=== PATIENT | male | born 1990 | race Caucasian/White ===

== ENCOUNTER 2018-04-12 14:50 | Inpatient (IN) ==
[2018-04-16] MEDS ORDERED: Acetaminophen 325 MG Tablet PO PRN
[2018-04-16] MEDS ORDERED: Bisacodyl 10 MG Supp RECTAL PRN
[2018-04-16] MEDS ORDERED: Chlorhexidine Gluconate 2% 1 Pack (2 Cloths) TOPICAL PRN (04:00)
[2018-04-16] MEDS: Chlorhexidine Gluconate 2% 1 Pack (2 Cloths) TOPICAL SCH (04:55)
[2018-04-16 06:35] LABS: Baso % (Auto) 0.6 % (0.0-2.0); Eos # (Auto) 0.1 th/mm3 (0.0-0.4); Eos % (Auto) 1.4 % (0.0-4.0); Hematocrit 25.2 % (39.0-51.0); Hemoglobin 8.7 gm/dL (13.0-17.0); Lymph # (Auto) 2.6 th/mm3 (1.0-4.8); Mean Corpuscular HGB Conc 34.7 % (32.0-36.0); Mean Corpuscular Hemoglobin 29.9 pg (27.0-34.0); Mean Corpuscular Volume 86.1 fL (80.0-100.0); Mean Platelet Volume 7.9 fL (7.0-11.0); Mono # (Auto) 0.1 th/mm3 (0.0-0.9); Mono % (Auto) 2.2 % (0.0-8.0); Neut # (Auto) 1.6 th/mm3 (1.8-7.7); Neut % (Auto) 36.8 % (16.0-70.0); Platelet Count 51 th/mm3 (150-450); Red Blood Count 2.93 mil/mm3 (4.50-5.90); Red Cell Distribution Width 17.8 % (11.6-17.2); White Blood Count 4.4 th/mm3 (4.0-11.0)
[2018-04-16] MEDS: Senna/Docusate Sodium 8.6/50 MG Tablet PO SCH ×2 (08:17→21:08)
[2018-04-16 08:39] LABS: Blast Cells 21 % (0-0); Eosinophils 1 % (0-4); Lymphocytes 22 % (9-44); Monocytes 2 % (0-8); Platelet Morphology Normal (Normal); Tallied Nucleated RBC 3 (0-0)
[2018-04-16 08:40] LABS: Ovalocytes 1+
--- NOTE | 2018-04-16 08:59 | P.PNONC ---
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 Objective Vital Signs/Intake & Output: Vital Signs 04/16/18 04:00 04/16/18 07:16 Temperature 98 F Pulse Rate 50 L Respiratory Rate 14 Blood Pressure 112/48 L Pulse Oximetry 98 98 Intake & Output 04/15/18 04/16/18 04/16/18 18:59 06:59 18:59 Intake Total 1680 / 1680 Output Total 2900 / 2900 Balance -1220 / -1220 Weight 234 lb 5.622 oz Intake: Oral 1680 / 1680 Output: Urine 2900 / 2900 Other: Date of Last Bowel Movement 04/15/18 Result Diagrams: 04/16/18 04:50 04/15/18 04:00 Laboratory Results: Laboratory Results - last 24 hr 04/12/18 04/12/18 04/12/18 15:17 15:17 15:17 WBC RBC Hgb Hct MCV MCH MCHC RDW Plt Count MPV Prelim Diff (Auto) Neut % (Auto) Lymph % (Auto) [place] % (Auto) Eos % (Auto) Baso % (Auto) Neut # (Auto) Lymph # (Auto) [place] # (Auto) Eos # (Auto) Baso # (Auto) CBC Comment WBC Differential Total Counted Neutrophils % (Manual) Seg Neuts % (Manual) Band Neutrophils % Band Neuts % (Manual) Lymphocytes % Lymphocytes % (Manual) Monocytes % Monocytes % (Manual) Eosinophils % Eosinophils % (Manual) Basophils % Blast Cells % (Manual) Neutrophils # (Manual) Abs Neuts (Manual) Metamyelocytes Myelocytes Nucleated RBCs Nucleated RBCs/100 WBC Differential Comment Blast Cells Platelet Estimate Platelet Morphology Plt Morphology Comment Basophilic Stippling Tear Drop Cells Ovalocytes Stomatocytes Smear Path Review ESR GREATER THAN 140 H Retic Count Absolute Retic PT INR APTT Fibrinogen 309 Sodium Potassium Chloride Carbon Dioxide Anion Gap BUN Creatinine Estimated GFR Random Glucose Hemoglobin A1c Lactic Acid Uric Acid Calcium Phosphorus Magnesium Iron 287 H TIBC 316 % Saturation 90.7 H Ferritin 431 H Total Bilirubin AST ALT Alkaline Phosphatase Lactate Dehydrogenase Total Creatine Kinase C-Reactive Protein 0.51 H Total Protein Albumin Vitamin B12 Folate Free T4 TSH 3rd Generation Urine Color Urine Turbidity Urine pH Ur Specific [place] Urine Protein Urine Glucose (UA) Urine Ketones Urine Occult Blood Urine Nitrite Urine Bilirubin Urine Urobilinogen Ur Leukocyte Esterase Micro UA Comment CATY Screen Complement C3 Complement C4 Transplt Candidate Eval CMV DNA Quant PCR CMV DNA PCR copies/ml CMV Lower 95% Conf Intv CMV Upper 95% Conf Intv EBV Capsid Ag IgG Ab EBV Capsid Ag IgM Ab EBV Nuclear Antigen EBV Interpretation Hepatitis A IgM Ab Hep Bs Antigen Hep B Core IgM Ab Hep C IgG Ab HIV 1&2 Ab/P24 Ag 4thGn 04/12/18 04/12/18 04/12/18 18:41 18:41 18:41 WBC 3.6 L RBC 0.99 L Hgb 3.3 L* Hct 9.6 L* MCV 96.5 MCH 33.2 MCHC 34.3 RDW 17.6 H Plt Count 41 L D MPV 8.2 Prelim Diff (Auto) Neut % (Auto) 34.4 Lymph % (Auto) 61.8 H [place] % (Auto) 2.1 Eos % (Auto) 1.3 Baso % (Auto) 0.4 Neut # (Auto) 1.2 L Lymph # (Auto) 2.2 [place] # (Auto) 0.1 Eos # (Auto) 0.0 Baso # (Auto) 0.0 CBC Comment AUTO DIFF WBC Differential Total Counted 100 Neutrophils % (Manual) 47 Seg Neuts % (Manual) Band Neutrophils % 3 Band Neuts % (Manual) Lymphocytes % 35 Lymphocytes % (Manual) Monocytes % 1 Monocytes % (Manual) Eosinophils % 3 Eosinophils % (Manual) Basophils % Blast Cells % (Manual) Neutrophils # (Manual) 1.9 Abs Neuts (Manual) Metamyelocytes 3 H Myelocytes 1 H Nucleated RBCs 3 H Nucleated RBCs/100 WBC Differential Comment FINAL DIFF MANUAL Blast Cells 7 H Platelet Estimate LOW L Platelet Morphology Plt Morphology Comment NORMAL Basophilic Stippling FAINT H Tear Drop Cells 1+ H Ovalocytes Stomatocytes 1+ H Smear Path Review ESR Retic Count 2.9 Absolute Retic 28.7 PT INR APTT Fibrinogen Sodium Potassium Chloride Carbon Dioxide Anion Gap BUN Creatinine Estimated GFR Random Glucose Hemoglobin A1c Lactic Acid Uric Acid Calcium Phosphorus Magnesium Iron TIBC % Saturation Ferritin Total Bilirubin AST ALT Alkaline Phosphatase Lactate Dehydrogenase Total Creatine Kinase C-Reactive Protein Total Protein Albumin Vitamin B12 Folate Free T4 TSH 3rd Generation Urine Color Urine Turbidity Urine pH Ur Specific [place] Urine Protein Urine Glucose (UA) Urine Ketones Urine Occult Blood Urine Nitrite Urine Bilirubin Urine Urobilinogen Ur Leukocyte Esterase Micro UA Comment CATY Screen NEG Complement C3 98 Complement C4 22 Transplt Candidate Eval CMV DNA Quant PCR CMV DNA PCR copies/ml CMV Lower 95% Conf Intv CMV Upper 95% Conf Intv EBV Capsid Ag IgG Ab EBV Capsid Ag IgM Ab EBV Nuclear Antigen EBV Interpretation Hepatitis A IgM Ab Hep Bs Antigen Hep B Core IgM Ab Hep C IgG Ab HIV 1&2 Ab/P24 Ag 4thGn 04/12/18 04/12/18 04/12/18 18:41 18:41 18:41 WBC RBC Hgb Hct MCV MCH MCHC RDW Plt Count MPV Prelim Diff (Auto) Neut % (Auto) Lymph % (Auto) [place] % (Auto) Eos % (Auto) Baso % (Auto) Neut # (Auto) Lymph # (Auto) [place] # (Auto) Eos # (Auto) Baso # (Auto) CBC Comment WBC Differential Total Counted Neutrophils % (Manual) Seg Neuts % (Manual) Band Neutrophils % Band Neuts % (Manual) Lymphocytes % Lymphocytes % (Manual) Monocytes % Monocytes % (Manual) Eosinophils % Eosinophils % (Manual) Basophils % Blast Cells % (Manual) Neutrophils # (Manual) Abs Neuts (Manual) Metamyelocytes Myelocytes Nucleated RBCs Nucleated RBCs/100 WBC Differential Comment Blast Cells Platelet Estimate Platelet Morphology Plt Morphology Comment Basophilic Stippling Tear Drop Cells Ovalocytes Stomatocytes Smear Path Review ESR Retic Count Absolute Retic PT INR APTT Fibrinogen Sodium Potassium Chloride Carbon Dioxide Anion Gap BUN Creatinine Estimated GFR Random Glucose Hemoglobin A1c Lactic Acid Uric Acid Calcium Phosphorus Magnesium Iron TIBC % Saturation Ferritin Total Bilirubin AST ALT Alkaline Phosphatase Lactate Dehydrogenase Total Creatine Kinase C-Reactive Protein Total Protein Albumin Vitamin B12 Folate Free T4 TSH 3rd Generation Urine Color Urine Turbidity Urine pH Ur Specific [place] Urine Protein Urine Glucose (UA) Urine Ketones Urine Occult Blood Urine Nitrite Urine Bilirubin Urine Urobilinogen Ur Leukocyte Esterase Micro UA Comment CATY Screen Complement C3 Complement C4 Transplt Candidate Eval Cancelled CMV DNA Quant PCR Cancelled CMV DNA PCR copies/ml Cancelled CMV Lower 95% Conf Intv Cancelled CMV Upper 95% Conf Intv Cancelled EBV Capsid Ag IgG Ab EBV Capsid Ag IgM Ab EBV Nuclear Antigen EBV Interpretation Hepatitis A IgM Ab NONREACTIVE Hep Bs Antigen NONREACTIVE Hep B Core IgM Ab NONREACTIVE Hep C IgG Ab NONREACTIVE HIV 1&2 Ab/P24 Ag 4thGn 06/04/12/18 04/12/18 18:41 18:41 18:41 WBC RBC Hgb Hct MCV MCH MCHC RDW Plt Count MPV Prelim Diff (Auto) Neut % (Auto) Lymph % (Auto) [place] % (Auto) Eos % (Auto) Baso % (Auto) Neut # (Auto) Lymph # (Auto) [place] # (Auto) Eos # (Auto) Baso # (Auto) CBC Comment WBC Differential Total Counted Neutrophils % (Manual) Seg Neuts % (Manual) Band Neutrophils % Band Neuts % (Manual) Lymphocytes % Lymphocytes % (Manual) Monocytes % Monocytes % (Manual) Eosinophils % Eosinophils % (Manual) Basophils % Blast Cells % (Manual) Neutrophils # (Manual) Abs Neuts (Manual) Metamyelocytes Myelocytes Nucleated RBCs Nucleated RBCs/100 WBC Differential Comment Blast Cells Platelet Estimate Platelet Morphology Plt Morphology Comment Basophilic Stippling Tear Drop Cells Ovalocytes Stomatocytes Smear Path Review ESR Retic Count Absolute Retic PT INR APTT Fibrinogen Sodium Potassium Chloride Carbon Dioxide Anion Gap BUN Creatinine Estimated GFR Random Glucose Hemoglobin A1c Lactic Acid Uric Acid 5.3 Calcium Phosphorus Magnesium Iron TIBC % Saturation Ferritin Total Bilirubin AST ALT Alkaline Phosphatase Lactate Dehydrogenase 303 H Total Creatine Kinase 124 C-Reactive Protein Total Protein Albumin Vitamin B12 743 Folate 3.1 Free T4 TSH 3rd Generation 0.839 Urine Color Urine Turbidity Urine pH Ur Specific [place] Urine Protein Urine Glucose (UA) Urine Ketones Urine Occult Blood Urine Nitrite Urine Bilirubin Urine Urobilinogen Ur Leukocyte Esterase Micro UA Comment CATY Screen Complement C3 Complement C4 Transplt Candidate Eval CMV DNA Quant PCR CMV DNA PCR copies/ml CMV Lower 95% Conf Intv CMV Upper 95% Conf Intv EBV Capsid Ag IgG Ab Positive EBV Capsid Ag IgM Ab Negative EBV Nuclear Antigen Positive EBV Interpretation . Hepatitis A IgM Ab Hep Bs Antigen Hep B Core IgM Ab Hep C IgG Ab HIV 1&2 Ab/P24 Ag 4thGn 04/13/18 04/13/18 04/13/18 05:27 05:27 05:27 WBC 5.3 RBC 1.82 L Hgb 5.6 L* D Hct 16.3 L* MCV 89.9 D MCH 31.0 MCHC 34.4 RDW 18.4 H Plt Count 30 L MPV 7.3 Prelim Diff (Auto) Neut % (Auto) Lymph % (Auto) [place] % (Auto) Eos % (Auto) Baso % (Auto) Neut # (Auto) Lymph # (Auto) [place] # (Auto) Eos # (Auto) Baso # (Auto) CBC Comment AUTO DIFF WBC Differential Total Counted 100 Neutrophils % (Manual) 28 Seg Neuts % (Manual) Band Neutrophils % Band Neuts % (Manual) Lymphocytes % 39 Lymphocytes % (Manual) Monocytes % 1 Monocytes % (Manual) Eosinophils % Eosinophils % (Manual) Basophils % Blast Cells % (Manual) Neutrophils # (Manual) 1.7 L Abs Neuts (Manual) Metamyelocytes 3 H Myelocytes 1 H Nucleated RBCs 4 H Nucleated RBCs/100 WBC Differential Comment FINAL DIFF MANUAL Blast Cells 28 H Platelet Estimate LOW L Platelet Morphology Plt Morphology Comment NORMAL Basophilic Stippling Tear Drop Cells Ovalocytes 1+ H Stomatocytes Smear Path Review ESR Retic Count Absolute Retic PT INR APTT Fibrinogen Sodium 142 Potassium 3.6 Chloride 108 H Carbon Dioxide 23.9 Anion Gap 10 BUN 5 L Creatinine 0.84 Estimated GFR 110 Random Glucose 88 Hemoglobin A1c Lactic Acid Uric Acid Calcium 7.9 L Phosphorus 3.6 Magnesium 2.2 Iron TIBC % Saturation Ferritin Total Bilirubin 0.7 AST 11 L ALT 19 Alkaline Phosphatase 56 Lactate Dehydrogenase Total Creatine Kinase C-Reactive Protein Total Protein 5.9 L D Albumin 3.4 Vitamin B12 Folate Free T4 TSH 3rd Generation Urine Color Urine Turbidity Urine pH Ur Specific [place] Urine Protein Urine Glucose (UA) Urine Ketones Urine Occult Blood Urine Nitrite Urine Bilirubin Urine Urobilinogen Ur Leukocyte Esterase Micro UA Comment CATY Screen Complement C3 Complement C4 Transplt Candidate Eval CMV DNA Quant PCR Cancelled CMV DNA PCR copies/ml Cancelled CMV Lower 95% Conf Intv Cancelled CMV Upper 95% Conf Intv Cancelled EBV Capsid Ag IgG Ab EBV Capsid Ag IgM Ab EBV Nuclear Antigen EBV Interpretation Hepatitis A IgM Ab Hep Bs Antigen Hep B Core IgM Ab Hep C IgG Ab HIV 1&2 Ab/P24 Ag 4thGn 04/14/18 04/14/18 04/15/18 05:07 05:07 04:00 WBC 4.9 RBC 2.19 L Hgb 6.7 L* Hct 19.4 L* MCV 88.4 MCH 30.4 MCHC 34.4 RDW 17.2 Plt Count 28 L MPV 7.2 Prelim Diff (Auto) Neut % (Auto) 23.6 Lymph % (Auto) 73.2 H [place] % (Auto) 1.4 Eos % (Auto) 1.1 Baso % (Auto) 0.7 Neut # (Auto) 1.2 L Lymph # (Auto) 3.6 [place] # (Auto) 0.1 Eos # (Auto) 0.1 Baso # (Auto) 0.0 CBC Comment AUTO DIFF WBC Differential Total Counted 100 Neutrophils % (Manual) 24 Seg Neuts % (Manual) Band Neutrophils % 2 Band Neuts % (Manual) Lymphocytes % 34 Lymphocytes % (Manual) Monocytes % Monocytes % (Manual) Eosinophils % 2 Eosinophils % (Manual) Basophils % Blast Cells % (Manual) Neutrophils # (Manual) 1.4 L Abs Neuts (Manual) Metamyelocytes 1 Myelocytes 2 H Nucleated RBCs 6 H Nucleated RBCs/100 WBC Differential Comment FINAL DIFF MANUAL Blast Cells 35 H Platelet Estimate LOW L Platelet Morphology Plt Morphology Comment NORMAL Basophilic Stippling Tear Drop Cells 1+ H Ovalocytes Stomatocytes Smear Path Review ESR Retic Count Absolute Retic PT INR APTT Fibrinogen Sodium 141 142 Potassium 3.8 3.9 Chloride 109 H 107 Carbon Dioxide 23.1 27.1 Anion Gap 9 8 BUN 8 10 Creatinine 0.80 0.92 Estimated GFR 117 99 Random Glucose 84 84 Hemoglobin A1c 5.8 Lactic Acid Uric Acid Calcium 8.2 L 8.3 L Phosphorus 4.9 D Magnesium 2.3 Iron TIBC % Saturation Ferritin Total Bilirubin 0.6 0.4 AST 11 L 12 L ALT 16 20 Alkaline Phosphatase 63 70 Lactate Dehydrogenase 298 H 296 H Total Creatine Kinase C-Reactive Protein Total Protein 6.1 L 6.5 Albumin 3.5 3.5 Vitamin B12 Folate Free T4 1.09 TSH 3rd Generation 2.740 Urine Color Urine Turbidity Urine pH Ur Specific [place] Urine Protein Urine Glucose (UA) Urine Ketones Urine Occult Blood Urine Nitrite Urine Bilirubin Urine Urobilinogen Ur Leukocyte Esterase Micro UA Comment CATY Screen Complement C3 Complement C4 Transplt Candidate Eval CMV DNA Quant PCR CMV DNA PCR copies/ml CMV Lower 95% Conf Intv CMV Upper 95% Conf Intv EBV Capsid Ag IgG Ab EBV Capsid Ag IgM Ab EBV Nuclear Antigen EBV Interpretation Hepatitis A IgM Ab Hep Bs Antigen Hep B Core IgM Ab Hep C IgG Ab HIV 1&2 Ab/P24 Ag 4thGn 04/15/18 04/15/18 04/15/18 04:00 04:00 04:00 WBC 6.8 RBC 2.81 L Hgb 8.3 L Hct 24.0 L MCV 85.5 MCH 29.4 MCHC 34.4 RDW 17.5 H Plt Count 59 L D MPV 7.6 Prelim Diff (Auto) Neut % (Auto) 19.0 Lymph % (Auto) 78.2 H [place] % (Auto) 1.0 Eos % (Auto) 1.4 Baso % (Auto) 0.4 Neut # (Auto) 1.3 L Lymph # (Auto) 5.3 H [place] # (Auto) 0.1 Eos # (Auto) 0.1 Baso # (Auto) 0.0 CBC Comment AUTO DIFF WBC Differential Total Counted 100 Neutrophils % (Manual) 20 Seg Neuts % (Manual) Band Neutrophils % 1 Band Neuts % (Manual) Lymphocytes % 37 Lymphocytes % (Manual) Monocytes % 1 Monocytes % (Manual) Eosinophils % 2 Eosinophils % (Manual) Basophils % 1 Blast Cells % (Manual) Neutrophils # (Manual) 1.4 L Abs Neuts (Manual) Metamyelocytes Myelocytes Nucleated RBCs 4 H Nucleated RBCs/100 WBC Differential Comment FINAL DIFF MANUAL Blast Cells 38 H Platelet Estimate LOW L Platelet Morphology Plt Morphology Comment NORMAL Basophilic Stippling Tear Drop Cells 1+ H Ovalocytes 1+ H Stomatocytes Smear Path Review ESR Retic Count Absolute Retic PT 11.4 INR 1.1 APTT 25.7 Fibrinogen 296 Sodium Potassium Chloride Carbon Dioxide Anion Gap BUN Creatinine Estimated GFR Random Glucose Hemoglobin A1c Lactic Acid Uric Acid Calcium Phosphorus Magnesium Iron TIBC % Saturation Ferritin Total Bilirubin AST ALT Alkaline Phosphatase Lactate Dehydrogenase Total Creatine Kinase C-Reactive Protein Total Protein Albumin Vitamin B12 Folate Free T4 TSH 3rd Generation Urine Color Urine Turbidity Urine pH Ur Specific [place] Urine Protein Urine Glucose (UA) Urine Ketones Urine Occult Blood Urine Nitrite Urine Bilirubin Urine Urobilinogen Ur Leukocyte Esterase Micro UA Comment CATY Screen Complement C3 Complement C4 Transplt Candidate Eval CMV DNA Quant PCR CMV DNA PCR copies/ml CMV Lower 95% Conf Intv CMV Upper 95% Conf Intv EBV Capsid Ag IgG Ab EBV Capsid Ag IgM Ab EBV Nuclear Antigen EBV Interpretation Hepatitis A IgM Ab Hep Bs Antigen Hep B Core IgM Ab Hep C IgG Ab HIV 1&2 Ab/P24 Ag 4thGn NONREACTIVE 04/15/18 04/16/18 04/16/18 05:00 04:50 04:50 WBC 4.4 RBC 2.93 L Hgb 8.7 L Hct 25.2 L MCV 86.1 MCH 29.9 MCHC 34.7 RDW 17.8 H Plt Count 51 L MPV 7.9 Prelim Diff (Auto) Slide review pending Neut % (Auto) 36.8 Lymph % (Auto) 59.0 H [place] % (Auto) 2.2 Eos % (Auto) 1.4 Baso % (Auto) 0.6 Neut # (Auto) 1.6 L Lymph # (Auto) 2.6 [place] # (Auto) 0.1 Eos # (Auto) 0.1 Baso # (Auto) 0.0 CBC Comment WBC Differential Manual diff final Total Counted Neutrophils % (Manual) Seg Neuts % (Manual) 45 Band Neutrophils % Band Neuts % (Manual) 9 H Lymphocytes % Lymphocytes % (Manual) 22 Monocytes % Monocytes % (Manual) 2 Eosinophils % Eosinophils % (Manual) 1 Basophils % Blast Cells % (Manual) 21 H Neutrophils # (Manual) Abs Neuts (Manual) 2.4 Metamyelocytes Myelocytes Nucleated RBCs Nucleated RBCs/100 WBC 3 H Differential Comment . Blast Cells Platelet Estimate Low L Platelet Morphology Normal Plt Morphology Comment Basophilic Stippling Tear Drop Cells Ovalocytes 1+ H Stomatocytes Smear Path Review ESR Retic Count Absolute Retic PT INR APTT Fibrinogen Sodium Potassium Chloride Carbon Dioxide Anion Gap BUN Creatinine Estimated GFR Random Glucose Hemoglobin A1c Lactic Acid Uric Acid Calcium Phosphorus Magnesium Iron TIBC % Saturation Ferritin Total Bilirubin AST ALT Alkaline Phosphatase Lactate Dehydrogenase 337 H Total Creatine Kinase C-Reactive Protein Total Protein Albumin Vitamin B12 Folate Free T4 TSH 3rd Generation Urine Color Straw Urine Turbidity CLEAR Urine pH 6.0 Ur Specific [place] 1.004 Urine Protein NEG Urine Glucose (UA) NEG Urine Ketones NEG Urine Occult Blood NEG Urine Nitrite NEG Urine Bilirubin NEG Urine Urobilinogen LESS THAN 2 Ur Leukocyte Esterase NEG Micro UA Comment CULT NOT INDICATED CATY Screen Complement C3 Complement C4 Transplt Candidate Eval CMV DNA Quant PCR CMV DNA PCR copies/ml CMV Lower 95% Conf Intv CMV Upper 95% Conf Intv EBV Capsid Ag IgG Ab EBV Capsid Ag IgM Ab EBV Nuclear Antigen EBV Interpretation Hepatitis A IgM Ab Hep Bs Antigen Hep B Core IgM Ab Hep C IgG Ab HIV 1&2 Ab/P24 Ag 4thGn Medications: Active Medications Generic Name Dose Route Start Last Admin Trade Name Freq PRN Reason Stop Dose Admin Chlorhexidine Gluconate 3 pack 04/16/18 04:00 04/16/18 04:55 Chlorhexidine 2% Cloth TOPICAL 04/21/18 03:59 3 pack DAILY@0400 GILMA Administration Pantoprazole Sodium 40 mg 04/16/18 09:00 04/16/18 08:17 Protonix PO 40 mg DAILY GILMA Administration Senna/Docusate Sodium 1 tab 04/16/18 09:00 04/16/18 08:17 Margie-Colace PO 1 tab BID GILMA Administration Objective Remarks: GENERAL: Young male resting in bed in no obvious distress SKIN: Warm and dry. Leal catheter to right upper chest wall. No erythema. HEAD: Normocephalic. EYES: No injection or drainage. NECK: Supple, trachea midline. CARDIOVASCULAR: Regular rate and rhythm without murmurs. RESPIRATORY: Clear posteriorly. Breathing unlabored at rest. GASTROINTESTINAL: Abdomen soft, non-tender, nondistended. EXTREMITIES: No cyanosis, or edema. MUSCULOSKELETAL: Adequate muscle tone. NEUROLOGICAL: No obvious focal deficit. Awake, alert, and oriented x3. PSYCHIATRIC: Appropriate mood and affect; insight and judgment normal. Assessment/Plan - Plan 04/15 D1 Daunorubicin + Cytarabine 04/16: D2 Daunorubicin + Cytarabine 1. Continue induction 7+3 chemotherapy today. Overall the patient is doing well. 2. It was again explained to patient that this is a very lengthy process. Nothing to do for now except administer chemotherapy, observe for side effects and monitor blood counts. 3. Await molecular studies to determine prognosis and possibility of bone marrow transplant. Will transfuse irradiated packed red blood cells when transfusion becomes necessary. - Attending Statement The exam, history, and the medical decision-making described in the above note were completed with the assistance of the mid-level provider. I reviewed and agree with the findings presented. I attest that I had a [id number] encounter with the patient on the same day, and personally performed and documented my assessment and findings in the medical record. 27 yoM with AML. He is D2 on 04/16/2018 of 7+3. He started chemotherapy on 04/15/2018. He is tolerating well. Continue to monitor vitals, counts.
[2018-04-16] MEDS: Heparin Central Flush 100 UNIT/ML 5 ML Vial IV.FLUSH SCH (13:22)
--- NOTE | 2018-04-16 16:19 | P.PN ---
Subjective Interval history: Follow-up AML. Patient has no new complaints. RN noted heart rate down to mid 40s when patient is sleeping. His blood pressure is stable. Physical Exam Vital signs: Vital Signs 04/16/18 04:00 04/16/18 07:16 04/16/18 13:28 Temperature 98 F 97.7 F Pulse Rate 50 L 71 Respiratory Rate 14 16 Blood Pressure 112/48 L 142/72 H Pulse Oximetry 98 98 99 Intake & Output 04/15/18 04/16/18 04/16/18 18:59 06:59 18:59 Intake Total 1680 / 1680 Output Total 2900 / 2900 Balance -1220 / -1220 Weight 106.3 kg Intake: Oral 1680 / 1680 Output: Urine 2900 / 2900 Other: Date of Last Bowel Movement 04/15/18 04/16/18 Narrative: GENERAL: Well-developed and well-nourished in no distress SKIN: Warm and dry. CARDIOVASCULAR: Regular rate and rhythm without murmurs, gallops, or rubs. RESPIRATORY: Breath sounds equal bilaterally. No accessory muscle use. GASTROINTESTINAL: Abdomen soft, non-tender, nondistended. MUSCULOSKELETAL: No cyanosis, or edema. BACK: Nontender without obvious deformity. No CVA tenderness. Results - Labs CBC & Chem 7: 04/16/18 04:50 04/15/18 04:00 Labs: Laboratory Results - last 24 hr 04/12/18 04/12/18 04/12/18 15:17 15:17 15:17 WBC RBC Hgb Hct MCV MCH MCHC RDW Plt Count MPV Prelim Diff (Auto) Neut % (Auto) Lymph % (Auto) [place] % (Auto) Eos % (Auto) Baso % (Auto) Neut # (Auto) Lymph # (Auto) [place] # (Auto) Eos # (Auto) Baso # (Auto) CBC Comment WBC Differential Total Counted Neutrophils % (Manual) Seg Neuts % (Manual) Band Neutrophils % Band Neuts % (Manual) Lymphocytes % Lymphocytes % (Manual) Monocytes % Monocytes % (Manual) Eosinophils % Eosinophils % (Manual) Basophils % Blast Cells % (Manual) Neutrophils # (Manual) Abs Neuts (Manual) Metamyelocytes Myelocytes Nucleated RBCs Nucleated RBCs/100 WBC Differential Comment Blast Cells Platelet Estimate Platelet Morphology Plt Morphology Comment Basophilic Stippling Tear Drop Cells Ovalocytes Stomatocytes Smear Path Review ESR GREATER THAN 140 H Retic Count Absolute Retic PT INR APTT Fibrinogen 309 Sodium Potassium Chloride Carbon Dioxide Anion Gap BUN Creatinine Estimated GFR Random Glucose Hemoglobin A1c Lactic Acid Uric Acid Calcium Phosphorus Magnesium Iron 287 H TIBC 316 % Saturation 90.7 H Ferritin 431 H Total Bilirubin AST ALT Alkaline Phosphatase Lactate Dehydrogenase Total Creatine Kinase C-Reactive Protein 0.51 H Total Protein Albumin Vitamin B12 Folate Free T4 TSH 3rd Generation Urine Color Urine Turbidity Urine pH Ur Specific [place] Urine Protein Urine Glucose (UA) Urine Ketones Urine Occult Blood Urine Nitrite Urine Bilirubin Urine Urobilinogen Ur Leukocyte Esterase Micro UA Comment CATY Screen Complement C3 Complement C4 Transplt Candidate Eval CMV DNA Quant PCR CMV DNA PCR copies/ml CMV Lower 95% Conf Intv CMV Upper 95% Conf Intv EBV Capsid Ag IgG Ab EBV Capsid Ag IgM Ab EBV Nuclear Antigen EBV Interpretation Hepatitis A IgM Ab Hep Bs Antigen Hep B Core IgM Ab Hep C IgG Ab HIV 1&2 Ab/P24 Ag 4thGn 04/12/18 04/12/18 04/12/18 18:41 18:41 18:41 WBC 3.6 L RBC 0.99 L Hgb 3.3 L* Hct 9.6 L* MCV 96.5 MCH 33.2 MCHC 34.3 RDW 17.6 H Plt Count 41 L D MPV 8.2 Prelim Diff (Auto) Neut % (Auto) 34.4 Lymph % (Auto) 61.8 H [place] % (Auto) 2.1 Eos % (Auto) 1.3 Baso % (Auto) 0.4 Neut # (Auto) 1.2 L Lymph # (Auto) 2.2 [place] # (Auto) 0.1 Eos # (Auto) 0.0 Baso # (Auto) 0.0 CBC Comment AUTO DIFF WBC Differential Total Counted 100 Neutrophils % (Manual) 47 Seg Neuts % (Manual) Band Neutrophils % 3 Band Neuts % (Manual) Lymphocytes % 35 Lymphocytes % (Manual) Monocytes % 1 Monocytes % (Manual) Eosinophils % 3 Eosinophils % (Manual) Basophils % Blast Cells % (Manual) Neutrophils # (Manual) 1.9 Abs Neuts (Manual) Metamyelocytes 3 H Myelocytes 1 H Nucleated RBCs 3 H Nucleated RBCs/100 WBC Differential Comment FINAL DIFF MANUAL Blast Cells 7 H Platelet Estimate LOW L Platelet Morphology Plt Morphology Comment NORMAL Basophilic Stippling FAINT H Tear Drop Cells 1+ H Ovalocytes Stomatocytes 1+ H Smear Path Review ESR Retic Count 2.9 Absolute Retic 28.7 PT INR APTT Fibrinogen Sodium Potassium Chloride Carbon Dioxide Anion Gap BUN Creatinine Estimated GFR Random Glucose Hemoglobin A1c Lactic Acid Uric Acid Calcium Phosphorus Magnesium Iron TIBC % Saturation Ferritin Total Bilirubin AST ALT Alkaline Phosphatase Lactate Dehydrogenase Total Creatine Kinase C-Reactive Protein Total Protein Albumin Vitamin B12 Folate Free T4 TSH 3rd Generation Urine Color Urine Turbidity Urine pH Ur Specific [place] Urine Protein Urine Glucose (UA) Urine Ketones Urine Occult Blood Urine Nitrite Urine Bilirubin Urine Urobilinogen Ur Leukocyte Esterase Micro UA Comment CATY Screen NEG Complement C3 98 Complement C4 22 Transplt Candidate Eval CMV DNA Quant PCR CMV DNA PCR copies/ml CMV Lower 95% Conf Intv CMV Upper 95% Conf Intv EBV Capsid Ag IgG Ab EBV Capsid Ag IgM Ab EBV Nuclear Antigen EBV Interpretation Hepatitis A IgM Ab Hep Bs Antigen Hep B Core IgM Ab Hep C IgG Ab HIV 1&2 Ab/P24 Ag 4thGn 04/12/18 04/12/18 04/12/18 18:41 18:41 18:41 WBC RBC Hgb Hct MCV MCH MCHC RDW Plt Count MPV Prelim Diff (Auto) Neut % (Auto) Lymph % (Auto) [place] % (Auto) Eos % (Auto) Baso % (Auto) Neut # (Auto) Lymph # (Auto) [place] # (Auto) Eos # (Auto) Baso # (Auto) CBC Comment WBC Differential Total Counted Neutrophils % (Manual) Seg Neuts % (Manual) Band Neutrophils % Band Neuts % (Manual) Lymphocytes % Lymphocytes % (Manual) Monocytes % Monocytes % (Manual) Eosinophils % Eosinophils % (Manual) Basophils % Blast Cells % (Manual) Neutrophils # (Manual) Abs Neuts (Manual) Metamyelocytes Myelocytes Nucleated RBCs Nucleated RBCs/100 WBC Differential Comment Blast Cells Platelet Estimate Platelet Morphology Plt Morphology Comment Basophilic Stippling Tear Drop Cells Ovalocytes Stomatocytes Smear Path Review ESR Retic Count Absolute Retic PT INR APTT Fibrinogen Sodium Potassium Chloride Carbon Dioxide Anion Gap BUN Creatinine Estimated GFR Random Glucose Hemoglobin A1c Lactic Acid Uric Acid Calcium Phosphorus Magnesium Iron TIBC % Saturation Ferritin Total Bilirubin AST ALT Alkaline Phosphatase Lactate Dehydrogenase Total Creatine Kinase C-Reactive Protein Total Protein Albumin Vitamin B12 Folate Free T4 TSH 3rd Generation Urine Color Urine Turbidity Urine pH Ur Specific [place] Urine Protein Urine Glucose (UA) Urine Ketones Urine Occult Blood Urine Nitrite Urine Bilirubin Urine Urobilinogen Ur Leukocyte Esterase Micro UA Comment CATY Screen Complement C3 Complement C4 Transplt Candidate Eval Cancelled CMV DNA Quant PCR Cancelled CMV DNA PCR copies/ml Cancelled CMV Lower 95% Conf Intv Cancelled CMV Upper 95% Conf Intv Cancelled EBV Capsid Ag IgG Ab EBV Capsid Ag IgM Ab EBV Nuclear Antigen EBV Interpretation Hepatitis A IgM Ab NONREACTIVE Hep Bs Antigen NONREACTIVE Hep B Core IgM Ab NONREACTIVE Hep C IgG Ab NONREACTIVE HIV 1&2 Ab/P24 Ag 4thGn 04/12/18 04/12/18 04/12/18 18:41 18:41 18:41 WBC RBC Hgb Hct MCV MCH MCHC RDW Plt Count MPV Prelim Diff (Auto) Neut % (Auto) Lymph % (Auto) [place] % (Auto) Eos % (Auto) Baso % (Auto) Neut # (Auto) Lymph # (Auto) [place] # (Auto) Eos # (Auto) Baso # (Auto) CBC Comment WBC Differential Total Counted Neutrophils % (Manual) Seg Neuts % (Manual) Band Neutrophils % Band Neuts % (Manual) Lymphocytes % Lymphocytes % (Manual) Monocytes % Monocytes % (Manual) Eosinophils % Eosinophils % (Manual) Basophils % Blast Cells % (Manual) Neutrophils # (Manual) Abs Neuts (Manual) Metamyelocytes Myelocytes Nucleated RBCs Nucleated RBCs/100 WBC Differential Comment Blast Cells Platelet Estimate Platelet Morphology Plt Morphology Comment Basophilic Stippling Tear Drop Cells Ovalocytes Stomatocytes Smear Path Review ESR Retic Count Absolute Retic PT INR APTT Fibrinogen Sodium Potassium Chloride Carbon Dioxide Anion Gap BUN Creatinine Estimated GFR Random Glucose Hemoglobin A1c Lactic Acid Uric Acid 5.3 Calcium Phosphorus Magnesium Iron TIBC % Saturation Ferritin Total Bilirubin AST ALT Alkaline Phosphatase Lactate Dehydrogenase 303 H Total Creatine Kinase 124 C-Reactive Protein Total Protein Albumin Vitamin B12 743 Folate 3.1 Free T4 TSH 3rd Generation 0.839 Urine Color Urine Turbidity Urine pH Ur Specific [place] Urine Protein Urine Glucose (UA) Urine Ketones Urine Occult Blood Urine Nitrite Urine Bilirubin Urine Urobilinogen Ur Leukocyte Esterase Micro UA Comment CATY Screen Complement C3 Complement C4 Transplt Candidate Eval CMV DNA Quant PCR CMV DNA PCR copies/ml CMV Lower 95% Conf Intv CMV Upper 95% Conf Intv EBV Capsid Ag IgG Ab Positive EBV Capsid Ag IgM Ab Negative EBV Nuclear Antigen Positive EBV Interpretation . Hepatitis A IgM Ab Hep Bs Antigen Hep B Core IgM Ab Hep C IgG Ab HIV 1&2 Ab/P24 Ag 4thGn 04/13/18 04/13/18 04/13/18 05:27 05:27 05:27 WBC 5.3 RBC 1.82 L Hgb 5.6 L* D Hct 16.3 L* MCV 89.9 D MCH 31.0 MCHC 34.4 RDW 18.4 H Plt Count 30 L MPV 7.3 Prelim Diff (Auto) Neut % (Auto) Lymph % (Auto) [place] % (Auto) Eos % (Auto) Baso % (Auto) Neut # (Auto) Lymph # (Auto) [place] # (Auto) Eos # (Auto) Baso # (Auto) CBC Comment AUTO DIFF WBC Differential Total Counted 100 Neutrophils % (Manual) 28 Seg Neuts % (Manual) Band Neutrophils % Band Neuts % (Manual) Lymphocytes % 39 Lymphocytes % (Manual) Monocytes % 1 Monocytes % (Manual) Eosinophils % Eosinophils % (Manual) Basophils % Blast Cells % (Manual) Neutrophils # (Manual) 1.7 L Abs Neuts (Manual) Metamyelocytes 3 H Myelocytes 1 H Nucleated RBCs 4 H Nucleated RBCs/100 WBC Differential Comment FINAL DIFF MANUAL Blast Cells 28 H Platelet Estimate LOW L Platelet Morphology Plt Morphology Comment NORMAL Basophilic Stippling Tear Drop Cells Ovalocytes 1+ H Stomatocytes Smear Path Review ESR Retic Count Absolute Retic PT INR APTT Fibrinogen Sodium 142 Potassium 3.6 Chloride 108 H Carbon Dioxide 23.9 Anion Gap 10 BUN 5 L Creatinine 0.84 Estimated GFR 110 Random Glucose 88 Hemoglobin A1c Lactic Acid Uric Acid Calcium 7.9 L Phosphorus 3.6 Magnesium 2.2 Iron TIBC % Saturation Ferritin Total Bilirubin 0.7 AST 11 L ALT 19 Alkaline Phosphatase 56 Lactate Dehydrogenase Total Creatine Kinase C-Reactive Protein Total Protein 5.9 L D Albumin 3.4 Vitamin B12 Folate Free T4 TSH 3rd Generation Urine Color Urine Turbidity Urine pH Ur Specific [place] Urine Protein Urine Glucose (UA) Urine Ketones Urine Occult Blood Urine Nitrite Urine Bilirubin Urine Urobilinogen Ur Leukocyte Esterase Micro UA Comment CATY Screen Complement C3 Complement C4 Transplt Candidate Eval CMV DNA Quant PCR Cancelled CMV DNA PCR copies/ml Cancelled CMV Lower 95% Conf Intv Cancelled CMV Upper 95% Conf Intv Cancelled EBV Capsid Ag IgG Ab EBV Capsid Ag IgM Ab EBV Nuclear Antigen EBV Interpretation Hepatitis A IgM Ab Hep Bs Antigen Hep B Core IgM Ab Hep C IgG Ab HIV 1&2 Ab/P24 Ag 4thGn 04/13/18 04/13/18 04/13/18 05:27 05:27 15:15 WBC RBC Hgb 7.3 L Hct 21.1 L MCV MCH MCHC RDW Plt Count MPV Prelim Diff (Auto) Neut % (Auto) Lymph % (Auto) [place] % (Auto) Eos % (Auto) Baso % (Auto) Neut # (Auto) Lymph # (Auto) [place] # (Auto) Eos # (Auto) Baso # (Auto) CBC Comment WBC Differential Total Counted Neutrophils % (Manual) Seg Neuts % (Manual) Band Neutrophils % Band Neuts % (Manual) Lymphocytes % Lymphocytes % (Manual) Monocytes % Monocytes % (Manual) Eosinophils % Eosinophils % (Manual) Basophils % Blast Cells % (Manual) Neutrophils # (Manual) Abs Neuts (Manual) Metamyelocytes Myelocytes Nucleated RBCs Nucleated RBCs/100 WBC Differential Comment Blast Cells Platelet Estimate Platelet Morphology Plt Morphology Comment Basophilic Stippling Tear Drop Cells Ovalocytes Stomatocytes Smear Path Review ESR Retic Count Absolute Retic PT 12.1 H INR 1.2 APTT 22.3 L Fibrinogen 265 Sodium Potassium Chloride Carbon Dioxide Anion Gap BUN Creatinine Estimated GFR Random Glucose Hemoglobin A1c Lactic Acid 0.5 Uric Acid Calcium Phosphorus Magnesium Iron TIBC % Saturation Ferritin Total Bilirubin AST ALT Alkaline Phosphatase Lactate Dehydrogenase Total Creatine Kinase C-Reactive Protein Total Protein Albumin Vitamin B12 Folate Free T4 TSH 3rd Generation Urine Color Urine Turbidity Urine pH Ur Specific [place] Urine Protein Urine Glucose (UA) Urine Ketones Urine Occult Blood Urine Nitrite Urine Bilirubin Urine Urobilinogen Ur Leukocyte Esterase Micro UA Comment CATY Screen Complement C3 Complement C4 Transplt Candidate Eval CMV DNA Quant PCR CMV DNA PCR copies/ml CMV Lower 95% Conf Intv CMV Upper 95% Conf Intv EBV Capsid Ag IgG Ab EBV Capsid Ag IgM Ab EBV Nuclear Antigen EBV Interpretation Hepatitis A IgM Ab Hep Bs Antigen Hep B Core IgM Ab Hep C IgG Ab HIV 1&2 Ab/P24 Ag 4thGn 04/14/18 04/14/18 04/15/18 05:07 05:07 04:00 WBC 4.9 RBC 2.19 L Hgb 6.7 L* Hct 19.4 L* MCV 88.4 MCH 30.4 MCHC 34.4 RDW 17.2 Plt Count 28 L MPV 7.2 Prelim Diff (Auto) Neut % (Auto) 23.6 Lymph % (Auto) 73.2 H [place] % (Auto) 1.4 Eos % (Auto) 1.1 Baso % (Auto) 0.7 Neut # (Auto) 1.2 L Lymph # (Auto) 3.6 [place] # (Auto) 0.1 Eos # (Auto) 0.1 Baso # (Auto) 0.0 CBC Comment AUTO DIFF WBC Differential Total Counted 100 Neutrophils % (Manual) 24 Seg Neuts % (Manual) Band Neutrophils % 2 Band Neuts % (Manual) Lymphocytes % 34 Lymphocytes % (Manual) Monocytes % Monocytes % (Manual) Eosinophils % 2 Eosinophils % (Manual) Basophils % Blast Cells % (Manual) Neutrophils # (Manual) 1.4 L Abs Neuts (Manual) Metamyelocytes 1 Myelocytes 2 H Nucleated RBCs 6 H Nucleated RBCs/100 WBC Differential Comment FINAL DIFF MANUAL Blast Cells 35 H Platelet Estimate LOW L Platelet Morphology Plt Morphology Comment NORMAL Basophilic Stippling Tear Drop Cells 1+ H Ovalocytes Stomatocytes Smear Path Review ESR Retic Count Absolute Retic PT INR APTT Fibrinogen Sodium 141 142 Potassium 3.8 3.9 Chloride 109 H 107 Carbon Dioxide 23.1 27.1 Anion Gap 9 8 BUN 8 10 Creatinine 0.80 0.92 Estimated GFR 117 99 Random Glucose 84 84 Hemoglobin A1c 5.8 Lactic Acid Uric Acid Calcium 8.2 L 8.3 L Phosphorus 4.9 D Magnesium 2.3 Iron TIBC % Saturation Ferritin Total Bilirubin 0.6 0.4 AST 11 L 12 L ALT 16 20 Alkaline Phosphatase 63 70 Lactate Dehydrogenase 298 H 296 H Total Creatine Kinase C-Reactive Protein Total Protein 6.1 L 6.5 Albumin 3.5 3.5 Vitamin B12 Folate Free T4 1.09 TSH 3rd Generation 2.740 Urine Color Urine Turbidity Urine pH Ur Specific [place] Urine Protein Urine Glucose (UA) Urine Ketones Urine Occult Blood Urine Nitrite Urine Bilirubin Urine Urobilinogen Ur Leukocyte Esterase Micro UA Comment CATY Screen Complement C3 Complement C4 Transplt Candidate Eval CMV DNA Quant PCR CMV DNA PCR copies/ml CMV Lower 95% Conf Intv CMV Upper 95% Conf Intv EBV Capsid Ag IgG Ab EBV Capsid Ag IgM Ab EBV Nuclear Antigen EBV Interpretation Hepatitis A IgM Ab Hep Bs Antigen Hep B Core IgM Ab Hep C IgG Ab HIV 1&2 Ab/P24 Ag 4thGn 04/15/18 04/15/18 04/15/18 04:00 04:00 04:00 WBC 6.8 RBC 2.81 L Hgb 8.3 L Hct 24.0 L MCV 85.5 MCH 29.4 MCHC 34.4 RDW 17.5 H Plt Count 59 L D MPV 7.6 Prelim Diff (Auto) Neut % (Auto) 19.0 Lymph % (Auto) 78.2 H [place] % (Auto) 1.0 Eos % (Auto) 1.4 Baso % (Auto) 0.4 Neut # (Auto) 1.3 L Lymph # (Auto) 5.3 H [place] # (Auto) 0.1 Eos # (Auto) 0.1 Baso # (Auto) 0.0 CBC Comment AUTO DIFF WBC Differential Total Counted 100 Neutrophils % (Manual) 20 Seg Neuts % (Manual) Band Neutrophils % 1 Band Neuts % (Manual) Lymphocytes % 37 Lymphocytes % (Manual) Monocytes % 1 Monocytes % (Manual) Eosinophils % 2 Eosinophils % (Manual) Basophils % 1 Blast Cells % (Manual) Neutrophils # (Manual) 1.4 L Abs Neuts (Manual) Metamyelocytes Myelocytes Nucleated RBCs 4 H Nucleated RBCs/100 WBC Differential Comment FINAL DIFF MANUAL Blast Cells 38 H Platelet Estimate LOW L Platelet Morphology Plt Morphology Comment NORMAL Basophilic Stippling Tear Drop Cells 1+ H Ovalocytes 1+ H Stomatocytes Smear Path Review ESR Retic Count Absolute Retic PT 11.4 INR 1.1 APTT 25.7 Fibrinogen 296 Sodium Potassium Chloride Carbon Dioxide Anion Gap BUN Creatinine Estimated GFR Random Glucose Hemoglobin A1c Lactic Acid Uric Acid Calcium Phosphorus Magnesium Iron TIBC % Saturation Ferritin Total Bilirubin AST ALT Alkaline Phosphatase Lactate Dehydrogenase Total Creatine Kinase C-Reactive Protein Total Protein Albumin Vitamin B12 Folate Free T4 TSH 3rd Generation Urine Color Urine Turbidity Urine pH Ur Specific [place] Urine Protein Urine Glucose (UA) Urine Ketones Urine Occult Blood Urine Nitrite Urine Bilirubin Urine Urobilinogen Ur Leukocyte Esterase Micro UA Comment CATY Screen Complement C3 Complement C4 Transplt Candidate Eval CMV DNA Quant PCR CMV DNA PCR copies/ml CMV Lower 95% Conf Intv CMV Upper 95% Conf Intv EBV Capsid Ag IgG Ab EBV Capsid Ag IgM Ab EBV Nuclear Antigen EBV Interpretation Hepatitis A IgM Ab Hep Bs Antigen Hep B Core IgM Ab Hep C IgG Ab HIV 1&2 Ab/P24 Ag 4thGn NONREACTIVE 04/15/18 04/16/18 04/16/18 05:00 04:50 04:50 WBC 4.4 RBC 2.93 L Hgb 8.7 L Hct 25.2 L MCV 86.1 MCH 29.9 MCHC 34.7 RDW 17.8 H Plt Count 51 L MPV 7.9 Prelim Diff (Auto) Slide review pending Neut % (Auto) 36.8 Lymph % (Auto) 59.0 H [place] % (Auto) 2.2 Eos % (Auto) 1.4 Baso % (Auto) 0.6 Neut # (Auto) 1.6 L Lymph # (Auto) 2.6 [place] # (Auto) 0.1 Eos # (Auto) 0.1 Baso # (Auto) 0.0 CBC Comment WBC Differential Manual diff final Total Counted Neutrophils % (Manual) Seg Neuts % (Manual) 45 Band Neutrophils % Band Neuts % (Manual) 9 H Lymphocytes % Lymphocytes % (Manual) 22 Monocytes % Monocytes % (Manual) 2 Eosinophils % Eosinophils % (Manual) 1 Basophils % Blast Cells % (Manual) 21 H Neutrophils # (Manual) Abs Neuts (Manual) 2.4 Metamyelocytes Myelocytes Nucleated RBCs Nucleated RBCs/100 WBC 3 H Differential Comment . Blast Cells Platelet Estimate Low L Platelet Morphology Normal Plt Morphology Comment Basophilic Stippling Tear Drop Cells Ovalocytes 1+ H Stomatocytes Smear Path Review ESR Retic Count Absolute Retic PT INR APTT Fibrinogen Sodium Potassium Chloride Carbon Dioxide Anion Gap BUN Creatinine Estimated GFR Random Glucose Hemoglobin A1c Lactic Acid Uric Acid Calcium Phosphorus Magnesium Iron TIBC % Saturation Ferritin Total Bilirubin AST ALT Alkaline Phosphatase Lactate Dehydrogenase 337 H Total Creatine Kinase C-Reactive Protein Total Protein Albumin Vitamin B12 Folate Free T4 TSH 3rd Generation Urine Color Straw Urine Turbidity CLEAR Urine pH 6.0 Ur Specific [place] 1.004 Urine Protein NEG Urine Glucose (UA) NEG Urine Ketones NEG Urine Occult Blood NEG Urine Nitrite NEG Urine Bilirubin NEG Urine Urobilinogen LESS THAN 2 Ur Leukocyte Esterase NEG Micro UA Comment CULT NOT INDICATED CATY Screen Complement C3 Complement C4 Transplt Candidate Eval CMV DNA Quant PCR CMV DNA PCR copies/ml CMV Lower 95% Conf Intv CMV Upper 95% Conf Intv EBV Capsid Ag IgG Ab EBV Capsid Ag IgM Ab EBV Nuclear Antigen EBV Interpretation Hepatitis A IgM Ab Hep Bs Antigen Hep B Core IgM Ab Hep C IgG Ab HIV 1&2 Ab/P24 Ag [facility] Microbiology 04/16/18 09:55 Stool Stool Occult Blood ([facility]) - Final Hemoccult negative Assessment and Plan - Plan Procedures performed: BM biopsy Leal catheter placement Patient AML status post bone marrow. Stable ct induction chemotherapy with daunorubicin and jaclyn-C. Cytogenetics are pending. Pancytopenia. Transfuse to keep hemoglobin greater than 7, platelets greater than 15,000. Hx Sz. Seizure precautions DVT prophylaxis with SCD and early ambulation
[2018-04-16] MEDS: Dexamethasone Inj 20 MG in Sodium Chlor 0.9% Inj 50 ML IV.SIG SCH (17:46)
[2018-04-16] MEDS: Granisetron 1 MG/ML Vial IV.PUSH SCH (17:57)
[2018-04-16] MEDS: DAUNORUBICIN IV.SIG SCH (18:35)
[2018-04-16] MEDS: SODIUM CHLOR 0.9% IV.SIG SCH (18:54)
[2018-04-16] MEDS: CYTARABINE IV.SIG SCH (18:54)
[2018-04-17] MEDS: Chlorhexidine Gluconate 2% 1 Pack (2 Cloths) TOPICAL SCH (04:50)
[2018-04-17 05:09] LABS: Baso % (Auto) 0.6 % (0.0-2.0); Eos % (Auto) 1.4 % (0.0-4.0); Hematocrit 24.3 % (39.0-51.0); Hemoglobin 8.3 gm/dL (13.0-17.0); Lymph # (Auto) 1.3 th/mm3 (1.0-4.8); Lymph % (Auto) 42.8 % (9.0-44.0); Mean Corpuscular HGB Conc 34.3 % (32.0-36.0); Mean Corpuscular Hemoglobin 29.4 pg (27.0-34.0); Mean Corpuscular Volume 85.6 fL (80.0-100.0); Mean Platelet Volume 7.8 fL (7.0-11.0); Mono % (Auto) 1.1 % (0.0-8.0); Neut # (Auto) 1.7 th/mm3 (1.8-7.7); Neut % (Auto) 54.1 % (16.0-70.0); Platelet Count 46 th/mm3 (150-450); Red Blood Count 2.84 mil/mm3 (4.50-5.90); Red Cell Distribution Width 17.3 % (11.6-17.2); White Blood Count 3.2 th/mm3 (4.0-11.0)
[2018-04-17 05:40] LABS: Anion Gap 8 meq/L (5-15); Blood Urea Nitrogen 11 mg/dL (7-18); Calcium 8.5 mg/dL (8.5-10.1); Carbon Dioxide 26.7 meq/L (21.0-32.0); Chloride 107 meq/L (98-107); Glomerular Filtration Rate Greater Than 89 mL/min (>89); Glucose,Random 129 mg/dL (74-106); Magnesium 2.1 mg/dL (1.5-2.5); Potassium 4.4 meq/L (3.5-5.1); Sodium 142 meq/L (136-145)
[2018-04-17 05:41] LABS: Lactate Dehydrogenase 314 U/L (87-241)
[2018-04-17 07:13] LABS: Blast Cells 34 % (0-0); Eosinophils 1 % (0-4); Lymphocytes 14 % (9-44); Monocytes 1 % (0-8)
[2018-04-17 07:14] LABS: Ovalocytes 1+; Platelet Morphology Normal (Normal)
--- NOTE | 2018-04-17 08:12 | P.PN ---
Subjective Interval history: Follow-up AML. Patient with ongoing induction chemotherapy. He has no complaints seen with family Physical Exam Vital signs: Vital Signs 04/16/18 13:28 04/16/18 16:00 04/16/18 20:00 Temperature 97.7 F 98.2 F 98.6 F Pulse Rate 71 67 78 Respiratory Rate 16 16 18 Blood Pressure 142/72 H 137/74 130/69 Pulse Oximetry 99 100 99 04/16/18 20:11 04/16/18 21:19 04/17/18 00:04 Temperature 99.9 F H Pulse Rate 77 70 Respiratory Rate 18 Blood Pressure 116/57 L Pulse Oximetry 99 98 04/17/18 00:44 04/17/18 03:47 04/17/18 04:06 Temperature 97.7 F Pulse Rate 80 74 56 L Respiratory Rate 16 Blood Pressure 123/63 Pulse Oximetry 98 Intake & Output 04/16/18 04/17/18 04/17/18 18:59 06:59 18:59 Intake Total 1440 / 1440 720 / 720 Output Total 1200 / 1200 Balance 240 / 240 720 / 720 Weight 106.3 kg 108 kg Intake: Oral 1440 / 1440 720 / 720 Output: Urine 1200 / 1200 Other: # Voids 3 Date of Last Bowel Movement 04/16/18 04/16/18 # Bowel Movements 1 Narrative: GENERAL: Well-developed and well-nourished in no distress SKIN: Warm and dry. CARDIOVASCULAR: Regular rate and rhythm without murmurs, gallops, or rubs. RESPIRATORY: Breath sounds equal bilaterally. No accessory muscle use. GASTROINTESTINAL: Abdomen soft, non-tender, nondistended. MUSCULOSKELETAL: No cyanosis, or edema. BACK: Nontender without obvious deformity. No CVA tenderness. Results - Labs CBC & Chem 7: 04/17/18 03:50 04/17/18 03:50 Laboratory Results - last 24 hr 04/16/18 04/17/18 04/17/18 04:50 03:50 03:50 WBC 3.2 L RBC 2.84 L Hgb 8.3 L Hct 24.3 L MCV 85.6 MCH 29.4 MCHC 34.3 RDW 17.3 H Plt Count 46 L MPV 7.8 Prelim Diff (Auto) Slide review pending Neut % (Auto) 54.1 Lymph % (Auto) 42.8 [place] % (Auto) 1.1 Eos % (Auto) 1.4 Baso % (Auto) 0.6 Neut # (Auto) 1.7 L Lymph # (Auto) 1.3 [place] # (Auto) 0.0 Eos # (Auto) 0.0 Baso # (Auto) 0.0 WBC Differential Manual diff final Manual diff final Seg Neuts % (Manual) 45 49 Band Neuts % (Manual) 9 H 1 Lymphocytes % (Manual) 22 14 Monocytes % (Manual) 2 1 Eosinophils % (Manual) 1 1 Blast Cells % (Manual) 21 H 34 H Abs Neuts (Manual) 2.4 1.6 L Nucleated RBCs/100 WBC 3 H Differential Comment . Platelet Estimate Low L Low L Platelet Morphology Normal Normal Ovalocytes 1+ H 1+ H Sodium 142 Potassium 4.4 Chloride 107 Carbon Dioxide 26.7 Anion Gap 8 BUN 11 Creatinine 0.71 Estimated GFR Greater than 89 Random Glucose 129 H Calcium 8.5 Magnesium 2.1 Lactate Dehydrogenase 314 H Microbiology 04/16/18 09:55 Stool Stool Occult Blood ([facility]) - Final Hemoccult negative - Procedures BM biopsy Leal catheter placement Assessment and Plan - Plan Patient AML status post bone marrow. Stable ct induction chemotherapy with daunorubicin and jaclyn-C. Cytogenetics are pending to evaluate for possibility of bone marrow transplant. Pancytopenia. Transfuse to keep hemoglobin greater than 7, platelets greater than 15,000. Hx Sz. Seizure precautions DVT prophylaxis with SCD and early ambulation
--- NOTE | 2018-04-17 09:53 | P.PNONC ---
Subjective Interval history: I just woke up. Objective Vital Signs/Intake & Output: Vital Signs 04/16/18 13:28 04/16/18 16:00 04/16/18 20:00 Temperature 97.7 F 98.2 F 98.6 F Pulse Rate 71 67 78 Respiratory Rate 16 16 18 Blood Pressure 142/72 H 137/74 130/69 Pulse Oximetry 99 100 99 04/16/18 20:11 04/16/18 21:19 04/17/18 00:04 Temperature 99.9 F H Pulse Rate 77 70 Respiratory Rate 18 Blood Pressure 116/57 L Pulse Oximetry 99 98 04/17/18 00:44 04/17/18 03:47 04/17/18 04:06 Temperature 97.7 F Pulse Rate 80 74 56 L Respiratory Rate 16 Blood Pressure 123/63 Pulse Oximetry 98 04/17/18 08:00 Temperature 97.9 F Pulse Rate 66 Respiratory Rate 18 Blood Pressure 135/71 Pulse Oximetry 100 Intake & Output 04/16/18 04/17/18 04/17/18 18:59 06:59 18:59 Intake Total 1440 / 1440 720 / 720 Output Total 1200 / 1200 Balance 240 / 240 720 / 720 Weight 106.3 kg 108 kg Intake: Oral 1440 / 1440 720 / 720 Output: Urine 1200 / 1200 Other: # Voids 3 Date of Last Bowel Movement 04/16/18 04/16/18 # Bowel Movements 1 Result Diagrams: 04/17/18 03:50 04/17/18 03:50 Laboratory Results: Laboratory Results - last 24 hr 04/17/18 04/17/18 03:50 03:50 WBC 3.2 L RBC 2.84 L Hgb 8.3 L Hct 24.3 L MCV 85.6 MCH 29.4 MCHC 34.3 RDW 17.3 H Plt Count 46 L MPV 7.8 Prelim Diff (Auto) Slide review pending Neut % (Auto) 54.1 Lymph % (Auto) 42.8 [place] % (Auto) 1.1 Eos % (Auto) 1.4 Baso % (Auto) 0.6 Neut # (Auto) 1.7 L Lymph # (Auto) 1.3 [place] # (Auto) 0.0 Eos # (Auto) 0.0 Baso # (Auto) 0.0 WBC Differential Manual diff final Seg Neuts % (Manual) 49 Band Neuts % (Manual) 1 Lymphocytes % (Manual) 14 Monocytes % (Manual) 1 Eosinophils % (Manual) 1 Blast Cells % (Manual) 34 H Abs Neuts (Manual) 1.6 L Differential Comment . Platelet Estimate Low L Platelet Morphology Normal Ovalocytes 1+ H Sodium 142 Potassium 4.4 Chloride 107 Carbon Dioxide 26.7 Anion Gap 8 BUN 11 Creatinine 0.71 Estimated GFR Greater than 89 Random Glucose 129 H Calcium 8.5 Magnesium 2.1 Lactate Dehydrogenase 314 H Culture Results: Microbiology 04/16/18 09:55 Stool Occult Blood ([facility]) - Final Stool Hemoccult negative Medications: Active Medications Generic Name Dose Route Start Last Admin Trade Name Freq PRN Reason Stop Dose Admin Chlorhexidine Gluconate 3 pack 04/16/18 04:00 04/17/18 04:50 Chlorhexidine 2% Cloth TOPICAL 04/21/18 03:59 3 pack DAILY@0400 GILMA Administration Daunorubicin HCl 200 mg 04/16/18 14:00 04/16/18 18:35 Cerubidine Inj IV.SIG 04/17/18 14:01 200 mg Q24H GILMA Administration Granisetron HCl 1 mg 04/16/18 13:30 04/16/18 17:57 Kytril Inj IV.PUSH 04/21/18 13:31 1 mg Q24H GILMA Administration Heparin Sodium (Porcine) 0 unit 04/16/18 09:00 04/16/18 13:22 Heparin Central Flush IV.FLUSH Not Given DAILY GILMA Cytarabine 223 mg/ Sodium 511.15 mls @ 21.298 mls/hr 04/16/18 14:00 04/16/18 18:54 Chloride IV.SIG 04/22/18 13:59 21.3 mls/hr Q24H GILMA Administration Dexamethasone Sodium Phosphate 55 mls @ 330 mls/hr 04/16/18 13:30 04/16/18 17 :46 20 mg/ Sodium Chloride IV.SIG 04/21/18 13:39 330 mls/hr Q24H GILMA Administration Miscellaneous Information 1 each 04/16/18 00:00 04/16/18 13:22 [facility] [place] Not Given Q361D GILMA Pantoprazole Sodium 40 mg 04/16/18 09:00 04/16/18 08:17 Protonix PO 40 mg DAILY GILMA Administration Senna/Docusate Sodium 1 tab 04/16/18 09:00 04/16/18 21:08 Margie-Colace PO 1 tab BID GILMA Administration Sodium Chloride 0 ml 04/16/18 09:00 04/16/18 13:22 Ns Flush IV.FLUSH Not Given DAILY GILMA Objective Remarks: GENERAL: Well-nourished, well-developed patient. SKIN: Warm and dry. HEAD: Normocephalic. EYES: No scleral icterus. No injection or drainage. NECK: Supple, trachea midline. No JVD or lymphadenopathy. LYMPHATIC: No adenopathy. CARDIOVASCULAR: Regular rate and rhythm without murmurs. RESPIRATORY: Breath sounds equal bilaterally. No accessory muscle use. GASTROINTESTINAL: Abdomen soft, non-tender, nondistended. EXTREMITIES: No cyanosis, or edema. MUSCULOSKELETAL: Adequate muscle tone. NEUROLOGICAL: No obvious focal deficit. Awake, alert, and oriented x3. PSYCHIATRIC: Appropriate mood and affect; insight and judgment normal. Assessment/Plan (1) AML (acute myeloid leukemia) Code(s): C92.00 - Acute myeloblastic leukemia, not having achieved remission Status: Acute - Plan 04/15 D1 Daunorubicin + Cytarabine 7/: D2 Daunorubicin + Cytarabine 7/: D3 Daunorubicin + Cytarabine 1. Continue induction 7+3 chemotherapy today. Tolerating chemo well. 2. No acute complaints or apparent toxicity. 3. Anemia and thrombocytopenia but no transfusion need. 4. Encourage to ambulate 5. Monitor for fever, noted low grade temp but resolved. 4. Await molecular studies to determine prognosis and possibility of bone marrow transplant. Will transfuse irradiated packed red blood cells when transfusion becomes necessary. (1) AML (acute myeloid leukemia) Qualifiers: Leukemia Active/Remission status: without remission Qualified Code(s): C92.00 - Acute myeloblastic leukemia, not having achieved remission
[2018-04-17] MEDS: Senna/Docusate Sodium 8.6/50 MG Tablet PO SCH (17:03)
[2018-04-17] MEDS: Heparin Central Flush 100 UNIT/ML 5 ML Vial IV.FLUSH SCH (18:52)
[2018-04-17] MEDS: Granisetron 1 MG/ML Vial IV.PUSH SCH (22:04)
[2018-04-17] MEDS: Dexamethasone Inj 20 MG in Sodium Chlor 0.9% Inj 50 ML IV.SIG SCH (22:05)
[2018-04-17] MEDS: DAUNORUBICIN IV.SIG SCH (22:27)
[2018-04-17] MEDS: SODIUM CHLOR 0.9% IV.SIG SCH (23:02)
[2018-04-17] MEDS: CYTARABINE IV.SIG SCH (23:02)
[2018-04-18] MEDS: Senna/Docusate Sodium 8.6/50 MG Tablet PO SCH ×3 (00:24→20:58)
[2018-04-18] MEDS: Heparin Central Flush 100 UNIT/ML 5 ML Vial IV.FLUSH PRN (03:29)
[2018-04-18] MEDS: Chlorhexidine Gluconate 2% 1 Pack (2 Cloths) TOPICAL SCH (03:33)
[2018-04-18 05:02] LABS: Anion Gap 9 meq/L (5-15); Blood Urea Nitrogen 14 mg/dL (7-18); Calcium 8.4 mg/dL (8.5-10.1); Carbon Dioxide 24.5 meq/L (21.0-32.0); Chloride 105 meq/L (98-107); Glomerular Filtration Rate Greater Than 89 mL/min (>89); Glucose,Random 120 mg/dL (74-106); Potassium 4.4 meq/L (3.5-5.1); Sodium 138 meq/L (136-145)
[2018-04-18 05:09] LABS: Baso % (Auto) 0.3 % (0.0-2.0); Eos % (Auto) 1.2 % (0.0-4.0); Hematocrit 25.4 % (39.0-51.0); Hemoglobin 8.6 gm/dL (13.0-17.0); Lymph # (Auto) 0.3 th/mm3 (1.0-4.8); Lymph % (Auto) 23.1 % (9.0-44.0); Mean Corpuscular HGB Conc 34.1 % (32.0-36.0); Mean Corpuscular Hemoglobin 29.1 pg (27.0-34.0); Mean Corpuscular Volume 85.4 fL (80.0-100.0); Mean Platelet Volume 7.5 fL (7.0-11.0); Mono % (Auto) 0.6 % (0.0-8.0); Neut # (Auto) 1.1 th/mm3 (1.8-7.7); Neut % (Auto) 74.8 % (16.0-70.0); Platelet Count 42 th/mm3 (150-450); Red Blood Count 2.97 mil/mm3 (4.50-5.90); Red Cell Distribution Width 17.1 % (11.6-17.2); White Blood Count 1.4 th/mm3 (4.0-11.0)
--- NOTE | 2018-04-18 07:56 | P.PN ---
Subjective Interval history: Follow-up for AML. Patient is currently doing well. Denies any chest pain, shortness of breath, fever or chills. Denies any nausea vomiting. Physical Exam Vital signs: Vital Signs 04/17/18 08:00 04/17/18 10:14 04/17/18 11:57 Temperature 97.9 F 98.2 F Pulse Rate 53 L 60 Respiratory Rate 18 18 Blood Pressure 135/71 125/75 Pulse Oximetry 100 96 99 04/17/18 12:00 04/17/18 16:00 04/17/18 17:04 Temperature 98.2 F Pulse Rate 53 L 50 L Respiratory Rate 18 18 Blood Pressure 138/79 Pulse Oximetry 100 04/17/18 19:51 04/17/18 20:03 04/17/18 23:32 Temperature 98.4 F 98.3 F Pulse Rate 66 66 75 Respiratory Rate 18 20 Blood Pressure 125/65 124/62 Pulse Oximetry 99 99 04/18/18 00:00 04/18/18 03:14 04/18/18 04:01 Temperature 98.2 F Pulse Rate 65 65 61 Respiratory Rate 18 Blood Pressure 115/53 L Pulse Oximetry 99 Intake & Output 04/17/18 04/18/18 04/18/18 18:59 06:59 18:59 Intake Total 511.15 / 511.15 1735 / 1735 Output Total 1075 / 1075 3100 / 3100 Balance -563.85 / -563.85 -1365 / -1365 Intake: IV 511.15 / 511.15 55 / 55 Christine-C Inj 223 MG In NS Inj 500 511.15 / 511.15 ML @ 21.298 mls/hr IV.SIG Q24H GILMA Rx#:[id number] Decadron Inj 20 MG In NS Inj 50 55 / 55 ML @ 330 mls/hr IV.SIG Q24H GILMA Rx#:[id number] Oral 1080 / 1080 Other 600 / 600 Output: Urine 1075 / 1075 3100 / 3100 Other: Other Intake Source Saline Solution Date of Last Bowel Movement 04/17/18 Narrative: GENERAL: Alert, NAD. SKIN: Warm and dry. HEAD: Normocephalic. EYES: No scleral icterus. No injection or drainage. NECK: Supple, trachea midline. No JVD or lymphadenopathy. CARDIOVASCULAR: Regular rate and rhythm without murmurs, gallops, or rubs. RESPIRATORY: Breath sounds equal bilaterally. No accessory muscle use. GASTROINTESTINAL: Abdomen soft, non-tender, nondistended. MUSCULOSKELETAL: No cyanosis, or edema. BACK: Nontender without obvious deformity. No CVA tenderness. Results - Labs CBC & Chem 7: 04/18/18 03:35 04/18/18 03:35 Laboratory Results - last 24 hr 04/18/18 04/18/18 03:35 03:35 WBC 1.4 L D RBC 2.97 L Hgb 8.6 L Hct 25.4 L MCV 85.4 MCH 29.1 MCHC 34.1 RDW 17.1 Plt Count 42 L MPV 7.5 Prelim Diff (Auto) Slide review pending Neut % (Auto) 74.8 H Lymph % (Auto) 23.1 [place] % (Auto) 0.6 Eos % (Auto) 1.2 Baso % (Auto) 0.3 Neut # (Auto) 1.1 L Lymph # (Auto) 0.3 L [place] # (Auto) 0.0 Eos # (Auto) 0.0 Baso # (Auto) 0.0 Differential Comment . Sodium 138 Potassium 4.4 Chloride 105 Carbon Dioxide 24.5 Anion Gap 9 BUN 14 Creatinine 0.73 Estimated GFR Greater than 89 Random Glucose 120 H Calcium 8.4 L - Procedures BM biopsy Leal catheter placement Assessment and Plan - Assessment (1) AML (acute myeloid leukemia) Code(s): C92.00 - Acute myeloblastic leukemia, not having achieved remission Status: Acute - Plan Mr. Hall is a pleasant 27-year-old male who was admitted on 2017 due to generalized weakness. His hemoglobin was 3.3 and platelet 30 on admission. Hematology oncology was consulted for pancytopenia. Patient was eventually diagnosed with AML. Hematology oncology started treatment for AML. Acute myeloid leukemia -Confirmed with bone marrow biopsy on 04/13/2018. -Patient is currently on induction therapy 7+3 chemotherapy. Tolerating chemotherapy well. -Hemoglobin 8.6, platelets 42K History of seizure -continue seizure precautions. Full code. SCDs. (1) AML (acute myeloid leukemia) Qualifiers: Leukemia Active/Remission status: without remission Qualified Code(s): C92.00 - Acute myeloblastic leukemia, not having achieved remission
[2018-04-18 08:49] LABS: Blast Cells 2 % (0-0); Eosinophils 1 % (0-4); Lymphocytes 16 % (9-44); Ovalocytes 1+; Platelet Morphology Normal (Normal); Tear Drop Cells 1+
--- NOTE | 2018-04-18 08:52 | P.PNONC ---
Subjective Interval history: Pt sleeping, awakens easily. Denies any N/V/D or pain. Reports good appetite. Objective Vital Signs/Intake & Output: Vital Signs 04/17/18 10:14 04/17/18 11:57 04/17/18 12:00 Temperature 98.2 F Pulse Rate 60 Respiratory Rate 18 18 Blood Pressure 125/75 Pulse Oximetry 96 99 04/17/18 16:00 04/17/18 17:04 04/17/18 19:51 Temperature 98.2 F 98.4 F Pulse Rate 53 L 50 L 66 Respiratory Rate 18 18 Blood Pressure 138/79 125/65 Pulse Oximetry 100 99 04/17/18 20:03 04/17/18 23:32 04/18/18 00:00 Temperature 98.3 F Pulse Rate 66 75 65 Respiratory Rate 20 Blood Pressure 124/62 Pulse Oximetry 99 04/18/18 03:14 04/18/18 04:01 Temperature 98.2 F Pulse Rate 65 61 Respiratory Rate 18 Blood Pressure 115/53 L Pulse Oximetry 99 Intake & Output 04/17/18 04/18/18 04/18/18 18:59 06:59 18:59 Intake Total 511.15 / 511.15 1735 / 1735 Output Total 1075 / 1075 3100 / 3100 Balance -563.85 / -563.85 -1365 / -1365 Intake: IV 511.15 / 511.15 55 / 55 Christine-C Inj 223 MG In NS Inj 500 511.15 / 511.15 ML @ 21.298 mls/hr IV.SIG Q24H GILMA Rx#:[id number] Decadron Inj 20 MG In NS Inj 50 55 / 55 ML @ 330 mls/hr IV.SIG Q24H GILMA Rx#:[id number] Oral 1080 / 1080 Other 600 / 600 Output: Urine 1075 / 1075 3100 / 3100 Other: Other Intake Source Saline Solution Date of Last Bowel Movement 04/17/18 Result Diagrams: 04/18/18 03:35 04/18/18 03:35 Laboratory Results: Laboratory Results - last 24 hr 04/18/18 04/18/18 03:35 03:35 WBC 1.4 L D RBC 2.97 L Hgb 8.6 L Hct 25.4 L MCV 85.4 MCH 29.1 MCHC 34.1 RDW 17.1 Plt Count 42 L MPV 7.5 Prelim Diff (Auto) Slide review pending Neut % (Auto) 74.8 H Lymph % (Auto) 23.1 [place] % (Auto) 0.6 Eos % (Auto) 1.2 Baso % (Auto) 0.3 Neut # (Auto) 1.1 L Lymph # (Auto) 0.3 L [place] # (Auto) 0.0 Eos # (Auto) 0.0 Baso # (Auto) 0.0 Differential Comment . Sodium 138 Potassium 4.4 Chloride 105 Carbon Dioxide 24.5 Anion Gap 9 BUN 14 Creatinine 0.73 Estimated GFR Greater than 89 Random Glucose 120 H Calcium 8.4 L Culture Results: Microbiology 04/16/18 09:55 Stool Occult Blood ([facility]) - Final Stool Hemoccult negative Medications: Active Medications Generic Name Dose Route Start Last Admin Trade Name Freq PRN Reason Stop Dose Admin Chlorhexidine Gluconate 3 pack 04/16/18 04:00 04/18/18 03:33 Chlorhexidine 2% Cloth TOPICAL 04/21/18 03:59 Not Given DAILY@0400 GILMA Granisetron HCl 1 mg 04/16/18 13:30 04/17/18 22:04 Kytril Inj IV.PUSH 04/21/18 13:31 1 mg Q24H GILMA Administration Heparin Sodium (Porcine) 0 unit 04/16/18 00:00 04/18/18 03:29 Heparin Central Flush IV.FLUSH 200 unit PRN PRN Administration Flush each lumen Heparin Sodium (Porcine) 0 unit 04/16/18 09:00 04/17/18 18:52 Heparin Central Flush IV.FLUSH 500 unit DAILY GILMA Administration Cytarabine 223 mg/ Sodium 511.15 mls @ 21.298 mls/hr 04/16/18 14:00 04/17/18 23:02 Chloride IV.SIG 04/22/18 13:59 21.3 mls/hr Q24H GILMA Administration Dexamethasone Sodium Phosphate 55 mls @ 330 mls/hr 04/16/18 13:30 04/17/18 22 :20 20 mg/ Sodium Chloride IV.SIG 04/21/18 13:39 Infused Q24H GILMA Infusion Miscellaneous Information 1 each 04/16/18 00:00 04/16/18 13:22 Misc Nursing Information OTHER Not Given Q361D GILMA Pantoprazole Sodium 40 mg 04/16/18 09:00 04/17/18 17:57 Protonix PO 40 mg DAILY GILMA Administration Senna/Docusate Sodium 1 tab 04/16/18 09:00 04/18/18 00:24 Margie-Colace PO Not Given BID GILMA Sodium Chloride 0 ml 04/16/18 09:00 04/17/18 18:52 Ns Flush IV.FLUSH 10 ml DAILY GILMA Administration Sodium Chloride 0 ml 04/16/18 00:00 04/18/18 03:31 Ns Flush IV.FLUSH 10 ml PRN PRN Administration FLUSH AFTER USING IV ACCESS Objective Remarks: GENERAL: Well-nourished, well-developed young male patient, in no acute distress. SKIN: Warm and dry. Leal catheter to right chest wall. HEAD: Normocephalic. EYES: No scleral icterus. No injection or drainage. NECK: Supple, trachea midline. No JVD or lymphadenopathy. CARDIOVASCULAR: Regular rate and rhythm without murmurs. RESPIRATORY: Breath sounds clear & equal bilaterally. No accessory muscle use. GASTROINTESTINAL: Abdomen soft, non-tender, nondistended. EXTREMITIES: No cyanosis, or edema. MUSCULOSKELETAL: Adequate muscle tone. NEUROLOGICAL: No obvious focal deficit. Awakens easily, alert, and oriented x3. PSYCHIATRIC: Appropriate mood and affect; insight and judgment normal. Assessment/Plan (1) AML (acute myeloid leukemia) Code(s): C92.00 - Acute myeloblastic leukemia, not having achieved remission Status: Acute - Plan 04/15 D1 Daunorubicin + Cytarabine 7/1: D2 Daunorubicin + Cytarabine 7/2: D3 Daunorubicin + Cytarabine 7/3: D4 Cytarabine. Afebrile. Tolerating chemo well. 1. Continue induction 7+3 chemotherapy today. Tolerating chemo well. 2. Anemia and thrombocytopenia, continue to monitor. Will transfuse CMV negative, irradiated packed red blood cells when transfusion becomes necessary. 3. Continue to monitor for fevers, notify provider and obtain blood cultures per policy. 4. Encourage to ambulate 5. Awaiting molecular studies to determine prognosis and possibility of bone marrow transplant. - Attending Statement The exam, history, and the medical decision-making described in the above note were completed with the assistance of the mid-level provider. I reviewed and agree with the findings presented. I attest that I had a [id number] encounter with the patient on the same day, and personally performed and documented my assessment and findings in the medical record. Patient seen and examined in the evening. He is doing well asking for extra portion and snacks. He ambulates at night. He denies any fevers chills or night sweats. He denies any mucositis. He is tolerating the chemotherapy well except for some changes in taste and smell. His mother was called during the visit. Mother's questions were answered to her satisfaction. We will proceed with chemotherapy as planned. Cytogenetics are still pending. (1) AML (acute myeloid leukemia) Qualifiers: Leukemia Active/Remission status: without remission Qualified Code(s): C92.00 - Acute myeloblastic leukemia, not having achieved remission
[2018-04-18] MEDS: Heparin Central Flush 100 UNIT/ML 5 ML Vial IV.FLUSH SCH (09:06)
--- NOTE | 2018-04-18 10:53 | ECG ---
Date Performed: 04/18/2018 Time Performed: 09:06:27 PTAGE: 27 years EKG: Sinus rhythm NORMAL ECG PREVIOUS TRACING : 04/12/2018 20.21 Since the previous tracing, no significant change noted DOCTOR: Ko Loera Interpretating Date/Time 04/18/2018 10:52:50
[2018-04-19] MEDS: Granisetron 1 MG/ML Vial IV.PUSH SCH (00:31)
[2018-04-19] MEDS: Dexamethasone Inj 20 MG in Sodium Chlor 0.9% Inj 50 ML IV.SIG SCH (00:38)
[2018-04-19] MEDS: SODIUM CHLOR 0.9% IV.SIG SCH (01:02)
[2018-04-19] MEDS: CYTARABINE IV.SIG SCH (01:02)
[2018-04-19] MEDS: Heparin Central Flush 100 UNIT/ML 5 ML Vial IV.FLUSH PRN (03:20)
[2018-04-19] MEDS: Chlorhexidine Gluconate 2% 1 Pack (2 Cloths) TOPICAL SCH (03:29)
[2018-04-19 04:36] LABS: Hematocrit 23.7 % (39.0-51.0); Mean Corpuscular HGB Conc 33.9 % (32.0-36.0); Mean Corpuscular Hemoglobin 29.2 pg (27.0-34.0); Mean Platelet Volume 7.4 fL (7.0-11.0); Platelet Count 31 th/mm3 (150-450); Red Blood Count 2.76 mil/mm3 (4.50-5.90); Red Cell Distribution Width 16.8 % (11.6-17.2); White Blood Count 0.7 th/mm3 (4.0-11.0)
--- NOTE | 2018-04-19 08:54 | P.PN ---
Subjective Interval history: Follow up for AML. Patient is sleeping in bed, wakes up on verbal commands. No acute concerns. No fever, chills. Physical Exam Vital signs: Vital Signs 04/18/18 10:24 04/18/18 12:46 04/18/18 16:00 Temperature 98.1 F 98.3 F Pulse Rate 77 54 L Respiratory Rate 16 16 Blood Pressure 127/66 125/65 Pulse Oximetry 96 100 99 04/18/18 20:00 04/18/18 20:40 04/19/18 00:00 Temperature 98.7 F 98.3 F Pulse Rate 68 71 Respiratory Rate 18 18 Blood Pressure 130/65 115/63 Pulse Oximetry 100 100 99 04/19/18 03:06 04/19/18 03:25 04/19/18 03:33 Temperature 98.4 F Pulse Rate 74 117 H 70 Respiratory Rate 18 Blood Pressure 113/63 Pulse Oximetry 98 Intake & Output 04/18/18 04/19/18 04/19/18 18:59 06:59 18:59 Intake Total 240 / 240 1490.15 / 1490.15 Output Total 1875 / 1875 Balance 240 / 240 -384.85 / -384.85 Weight 107.6 kg 110 kg Intake: IV 566.15 / 566.15 Christine-C Inj 223 MG In NS Inj 500 511.15 / 511.15 ML @ 21.298 mls/hr IV.SIG Q24H GIL[facility] Rx#:[id number] Decadron Inj 20 MG In NS Inj 50 55 / 55 ML @ 330 mls/hr IV.SIG Q24H GILMA Rx#:[id number] Oral 240 / 240 924 / 924 Output: Urine 1875 / 1875 Other: Date of Last Bowel Movement 04/17/18 04/18/18 # Bowel Movements 1 Results - Labs CBC & Chem 7: 04/19/18 03:20 04/18/18 03:35 Laboratory Results - last 24 hr 04/19/18 03:20 WBC 0.7 L RBC 2.76 L Hgb 8.0 L Hct 23.7 L MCV 86.0 MCH 29.2 MCHC 33.9 RDW 16.8 Plt Count 31 L MPV 7.4 Prelim Diff (Auto) Manual diff required Differential Comment . - Procedures BM biopsy Leal catheter placement Assessment and Plan - Assessment (1) AML (acute myeloid leukemia) Code(s): C92.00 - Acute myeloblastic leukemia, not having achieved remission Status: Acute - Plan Mr. Hall is a pleasant 27-year-old male who was admitted on 2017 due to generalized weakness. His hemoglobin was 3.3 and platelet 30 on admission. Hematology oncology was consulted for pancytopenia. Patient was eventually diagnosed with AML. Hematology oncology started treatment for AML. Acute myeloid leukemia -Confirmed with bone marrow biopsy on 04/13/2018. -Patient has received induction therapy 7+3 chemotherapy. Currently on Cytarabine. Tolerating chemotherapy well. -Hemoglobin 8.6, platelets 42K on 04/17/2018. -Monitor for fever. History of seizure -continue seizure precautions. Full code. SCDs. (1) AML (acute myeloid leukemia) Qualifiers: Leukemia Active/Remission status: without remission Qualified Code(s): C92.00 - Acute myeloblastic leukemia, not having achieved remission
[2018-04-19] MEDS: Heparin Central Flush 100 UNIT/ML 5 ML Vial IV.FLUSH SCH (09:10)
[2018-04-19] MEDS: Senna/Docusate Sodium 8.6/50 MG Tablet PO SCH ×2 (09:10→23:20)
[2018-04-19 10:19] LABS: Lymphocytes 22 % (9-44)
[2018-04-19 10:20] LABS: Ovalocytes 1+; Platelet Morphology Normal (Normal); Tear Drop Cells 1+
--- NOTE | 2018-04-19 11:12 | P.PNONC ---
Subjective Interval history: Complaint of wires from telemetry being a nuisance. Denies any fevers, sore throat, pain, headache. Ambulates the halls at night with family. Objective Vital Signs/Intake & Output: Vital Signs 04/18/18 12:46 04/18/18 16:00 04/18/18 20:00 Temperature 98.1 F 98.3 F 98.7 F Pulse Rate 77 54 L 68 Respiratory Rate 16 16 18 Blood Pressure 127/66 125/65 130/65 Pulse Oximetry 100 99 100 04/18/18 20:40 04/19/18 00:00 04/19/18 03:06 Temperature 98.3 F 98.4 F Pulse Rate 71 74 Respiratory Rate 18 18 Blood Pressure 115/63 113/63 Pulse Oximetry 100 99 98 04/19/18 03:25 04/19/18 03:33 04/19/18 09:05 Temperature 97.7 F Pulse Rate 117 H 70 73 Respiratory Rate 16 Blood Pressure 129/75 Pulse Oximetry 97 04/19/18 10:15 Temperature Pulse Rate Respiratory Rate Blood Pressure Pulse Oximetry 100 Intake & Output 04/18/18 04/19/18 04/19/18 18:59 06:59 18:59 Intake Total 240 / 240 1490.15 / 1490.15 Output Total 1875 / 1875 Balance 240 / 240 -384.85 / -384.85 Weight 107.6 kg 110 kg Intake: IV 566.15 / 566.15 Christine-C Inj 223 MG In NS Inj 500 511.15 / 511.15 ML @ 21.298 mls/hr IV.SIG Q24H GIL[facility] Rx#:[id number] Decadron Inj 20 MG In NS Inj 50 55 / 55 ML @ 330 mls/hr IV.SIG Q24H GILMA Rx#:[id number] Oral 240 / 240 924 / 924 Output: Urine 1875 / 1875 Other: Date of Last Bowel Movement 04/17/18 04/18/18 04/18/18 # Bowel Movements 1 Result Diagrams: 04/19/18 03:20 04/18/18 03:35 Laboratory Results: Laboratory Results - last 24 hr 04/19/18 03:20 WBC 0.7 L RBC 2.76 L Hgb 8.0 L Hct 23.7 L MCV 86.0 MCH 29.2 MCHC 33.9 RDW 16.8 Plt Count 31 L MPV 7.4 Prelim Diff (Auto) Manual diff required WBC Differential Manual diff final Seg Neuts % (Manual) 78 H Lymphocytes % (Manual) 22 Abs Neuts (Manual) 0.5 L* Differential Comment . Platelet Estimate Low L Platelet Morphology Normal Tear Drop Cells 1+ H Ovalocytes 1+ H Culture Results: Microbiology 04/16/18 09:55 Stool Occult Blood ([facility]) - Final Stool Hemoccult negative Medications: Active Medications Generic Name Dose Route Start Last Admin Trade Name Freq PRN Reason Stop Dose Admin Chlorhexidine Gluconate 3 pack 04/16/18 04:00 04/19/18 03:29 Chlorhexidine 2% Cloth TOPICAL 04/21/18 03:59 Not Given DAILY@0400 GILMA Granisetron HCl 1 mg 04/16/18 13:30 04/19/18 00:31 Kytril Inj IV.PUSH 04/21/18 13:31 1 mg Q24H GILMA Administration Heparin Sodium (Porcine) 0 unit 04/16/18 00:00 04/19/18 03:20 Heparin Central Flush IV.FLUSH 200 unit PRN PRN Administration Flush each lumen Heparin Sodium (Porcine) 0 unit 04/16/18 09:00 04/18/18 09:06 Heparin Central Flush IV.FLUSH 2.5 unit DAILY GILMA Administration Cytarabine 223 mg/ Sodium 511.15 mls @ 21.298 mls/hr 04/16/18 14:00 04/19/18 01:02 Chloride IV.SIG 04/22/18 13:59 21.3 mls/hr Q24H GILMA Administration Dexamethasone Sodium Phosphate 55 mls @ 330 mls/hr 04/16/18 13:30 04/19/18 01 :00 20 mg/ Sodium Chloride IV.SIG 04/21/18 13:39 Infused Q24H GILMA Infusion Miscellaneous Information 1 each 04/16/18 00:00 04/16/18 13:22 Misc Nursing Information OTHER Not Given Q361D GILMA Pantoprazole Sodium 40 mg 04/16/18 09:00 04/19/18 09:08 Protonix PO 40 mg DAILY GILMA Administration Senna/Docusate Sodium 1 tab 04/16/18 09:00 04/18/18 20:58 Margie-Colace PO Not Given BID GILMA Sodium Chloride 0 ml 04/16/18 09:00 07/03/18 09:06 Ns Flush IV.FLUSH 2 ml DAILY GILMA Administration Sodium Chloride 0 ml 04/16/18 00:00 04/19/18 09:09 Ns Flush IV.FLUSH 2 ml PRN PRN Administration FLUSH AFTER USING IV ACCESS Objective Remarks: GENERAL: Heavyset, young man, well-developed . SKIN: Warm and dry. No rash. HEAD: Normocephalic. EYES: No scleral icterus. No injection or drainage. NECK: Supple, trachea midline. No JVD or lymphadenopathy. LYMPHATIC: No adenopathy. CARDIOVASCULAR: Regular rate and rhythm without murmurs. RESPIRATORY: Breath sounds equal bilaterally. No accessory muscle use. GASTROINTESTINAL: Abdomen soft, non-tender, nondistended. EXTREMITIES: No cyanosis, or edema. MUSCULOSKELETAL: Adequate muscle tone. NEUROLOGICAL: No obvious focal deficit. Awake, alert, and oriented x3. PSYCHIATRIC: Appropriate mood and affect; insight and judgment normal. Assessment/Plan (1) Pancytopenia due to antineoplastic chemotherapy Code(s): D61.810 - Antineoplastic chemotherapy induced pancytopenia; T45.1X5A - Adverse effect of antineoplastic and immunosuppressive drugs, initial encounter Status: Acute (2) AML (acute myeloid leukemia) Code(s): C92.00 - Acute myeloblastic leukemia, not having achieved remission Status: Acute - Plan 04/15 D1 Daunorubicin + Cytarabine 7/1: D2 Daunorubicin + Cytarabine 7/2: D3 Daunorubicin + Cytarabine 7/3: D4 Cytarabine. Afebrile. Tolerating chemo well. 04/19: D5 Cytarabine continue 1. Continue induction 7+3 chemotherapy today. Tolerating chemo well. 2. Decreased blood draws to every other day until transfusion requiring. 3. Continue to monitor for fevers, notify provider and obtain blood cultures per policy. 4. Encourage to ambulate 5. Awaiting molecular studies to determine prognosis and possibility of bone marrow transplant. 6. DC telemetry, daunorubicin finished. 7. Dietitian to adjust portions. (2) AML (acute myeloid leukemia) Qualifiers: Leukemia Active/Remission status: without remission Qualified Code(s): C92.00 - Acute myeloblastic leukemia, not having achieved remission
[2018-04-20] MEDS: Dexamethasone Inj 20 MG in Sodium Chlor 0.9% Inj 50 ML IV.SIG SCH (02:01)
[2018-04-20] MEDS: Granisetron 1 MG/ML Vial IV.PUSH SCH (02:02)
[2018-04-20] MEDS: SODIUM CHLOR 0.9% IV.SIG SCH (03:01)
[2018-04-20] MEDS: CYTARABINE IV.SIG SCH (03:01)
[2018-04-20] MEDS: Chlorhexidine Gluconate 2% 1 Pack (2 Cloths) TOPICAL SCH (03:31)
--- NOTE | 2018-04-20 10:36 | P.PNONC ---
Subjective Interval history: Afebrile. Pt sitting up in bed, talking to his brother via telephone. No complaints at this time. Objective Vital Signs/Intake & Output: Vital Signs 04/19/18 12:15 04/19/18 16:55 04/19/18 21:31 Temperature 98.0 F 98.0 F Pulse Rate 75 60 Respiratory Rate 16 16 Blood Pressure 126/67 124/62 Pulse Oximetry 98 99 97 04/19/18 21:48 04/20/18 00:00 04/20/18 00:06 Temperature 98.3 F 98.2 F Pulse Rate 101 H 89 88 Respiratory Rate 16 18 Blood Pressure 123/65 117/68 Pulse Oximetry 99 99 04/20/18 04:00 04/20/18 09:25 Temperature 98.0 F 98.2 F Pulse Rate 71 68 Respiratory Rate 16 18 Blood Pressure 116/52 L 121/62 Pulse Oximetry 99 99 Intake & Output 04/19/18 04/20/18 04/20/18 18:59 06:59 18:59 Intake Total 2505.15 / 2505.15 Output Total 1500 / 1500 Balance 1005.15 / 1005.15 Weight 108.5 kg Intake: IV 566.15 / 566.15 Christine-C Inj 223 MG In NS Inj 500 511.15 / 511.15 ML @ 21.298 mls/hr IV.SIG Q24H [facility] Rx#:[id number] Decadron Inj 20 MG In NS Inj 50 55 / 55 ML @ 330 mls/hr IV.SIG Q24H [facility] Rx#:[id number] Oral 1937 / 1938 Output: Urine 1500 / 1500 Other: # Voids 5 Date of Last Bowel Movement 04/18/18 04/19/18 Result Diagrams: 04/19/18 03:20 04/18/18 03:35 Medications: Active Medications Generic Name Dose Route Start Last Admin Trade Name Freq PRN Reason Stop Dose Admin Chlorhexidine Gluconate 3 pack 04/16/18 04:00 04/20/18 03:31 Chlorhexidine 2% Cloth TOPICAL 04/21/18 03:59 Not Given DAILY@0400 G[facility] Granisetron HCl 1 mg 04/16/18 13:30 04/20/18 02:02 Kytril Inj IV.PUSH 04/21/18 13:31 1 mg Q24H [facility] Administration Heparin Sodium (Porcine) 0 unit 04/16/18 00:00 04/19/18 03:20 Heparin Central Flush IV.FLUSH 200 unit PRN PRN Administration Flush each lumen Heparin Sodium (Porcine) 0 unit 04/16/18 09:00 04/19/18 09:10 Heparin Central Flush IV.FLUSH Not Given DAILY [facility] Cytarabine 223 mg/ Sodium 511.15 mls @ 21.298 mls/hr 04/16/18 14:00 04/20/18 03:01 Chloride IV.SIG 04/22/18 13:59 21.3 mls/hr Q24H [facility] Administration Dexamethasone Sodium Phosphate 55 mls @ 330 mls/hr 04/16/18 13:30 04/20/18 03 :07 20 mg/ Sodium Chloride IV.SIG 04/21/18 13:39 Infused Q24H [facility] Infusion Miscellaneous Information 1 each 04/16/18 00:00 04/16/18 13:22 Mis Nursing Information OTHER Not Given Q361D [facility] Pantoprazole Sodium 40 mg 04/16/18 09:00 04/20/18 09:36 Protonix PO 40 mg DAILY [facility] Administration Senna/Docusate Sodium 1 tab 04/16/18 09:00 04/19/18 23:20 Margie-Colace PO Not Given BID [facility]MA Sodium Chloride 0 ml 04/16/18 09:00 04/19/18 09:10 Ns Flush IV.FLUSH 2 ml DAILY [facility] Administration Sodium Chloride 0 ml 04/16/18 00:00 04/19/18 09:09 Ns Flush IV.FLUSH 2 ml PRN PRN Administration FLUSH AFTER USING IV ACCESS Objective Remarks: GENERAL: Well-nourished, well-developed young male patient, in no acute distress. SKIN: Warm and dry. Leal catheter to right chest wall, dressing dry/intact. HEAD: Normocephalic. EYES: No scleral icterus. No injection or drainage. MOUTH: [place] moist mucous membranes. No sores or thrush. NECK: Supple, trachea midline. CARDIOVASCULAR: Regular rate and rhythm without murmurs. RESPIRATORY: Posterior breath sounds clear & equal bilaterally. No accessory muscle use. GASTROINTESTINAL: Abdomen soft, non-tender, nondistended. EXTREMITIES: No cyanosis, or edema. MUSCULOSKELETAL: Adequate muscle tone. NEUROLOGICAL: No obvious focal deficit. Awakens easily, alert, and oriented x3. PSYCHIATRIC: Appropriate mood and affect; insight and judgment normal. Assessment/Plan (1) Pancytopenia due to antineoplastic chemotherapy Code(s): D61.810 - Antineoplastic chemotherapy induced pancytopenia; T45.1X5A - Adverse effect of antineoplastic and immunosuppressive drugs, initial encounter Status: Acute (2) AML (acute myeloid leukemia) Code(s): C92.00 - Acute myeloblastic leukemia, not having achieved remission Status: Acute - Plan 04/15 D1 Daunorubicin + Cytarabine 04/16: D2 Daunorubicin + Cytarabine 04/17: D3 Daunorubicin + Cytarabine 7: D4 Cytarabine. Afebrile. Tolerating chemo well. 04/19: D5 Cytarabine continue 04/20: D6 Cytarabine continues. 1. Continue induction 7+3 chemotherapy today. Tolerating chemo well. 2. Decreased blood draws to every other day until transfusion requiring. Will obtian CBC tomorrow. 3. Continue to monitor for fevers, notify provider and obtain blood cultures per policy. 4. Awaiting molecular studies to determine prognosis and possibility of bone marrow transplant. - Attending Statement The exam, history, and the medical decision-making described in the above note were completed with the assistance of the mid-level provider. I reviewed and agree with the findings presented. I attest that I had a [id number] encounter with the patient on the same day, and personally performed and documented my assessment and findings in the medical record. No complaints this a.m. Neutropenic precautions in place. Afebrile. Appetite still good. Tolerating chemotherapy without any event. CBC scheduled for tomorrow. (2) AML (acute myeloid leukemia) Qualifiers: Leukemia Active/Remission status: without remission Qualified Code(s): C92.00 - Acute myeloblastic leukemia, not having achieved remission
--- NOTE | 2018-04-20 16:28 | P.PN ---
Subjective Interval history: Follow up for AML. Patient is resting in bed. No acute concerns. Remains afebrile. Physical Exam Vital signs: Vital Signs 04/19/18 16:55 04/19/18 21:31 04/19/18 21:48 Temperature 98.0 F 98.3 F Pulse Rate 60 101 H Respiratory Rate 16 16 Blood Pressure 124/62 123/65 Pulse Oximetry 99 97 99 04/20/18 00:00 04/20/18 00:06 04/20/18 04:00 Temperature 98.2 F 98.0 F Pulse Rate 89 88 71 Respiratory Rate 18 16 Blood Pressure 117/68 116/52 L Pulse Oximetry 99 99 04/20/18 08:00 04/20/18 09:25 04/20/18 12:00 Temperature 98.2 F 98.8 F Pulse Rate 63 68 70 Respiratory Rate 18 18 Blood Pressure 121/62 119/60 Pulse Oximetry 99 99 04/20/18 14:55 Temperature Pulse Rate Respiratory Rate Blood Pressure Pulse Oximetry 99 Intake & Output 04/19/18 04/20/18 04/20/18 18:59 06:59 18:59 Intake Total 2505.15 / 2505.15 Output Total 1500 / 1500 1400 / 1400 Balance 1005.15 / 1005.15 -1400 / -1400 Weight 108.5 kg Intake: IV 566.15 / 566.15 Christine-C Inj 223 MG In NS Inj 500 511.15 / 511.15 ML @ 21.298 mls/hr IV.SIG Q24H [facility] Rx#:[id number] Decadron Inj 20 MG In NS Inj 50 55 / 55 ML @ 330 mls/hr IV.SIG Q24H [facility] Rx#:[id number] Oral 1937 / 1938 Output: Urine 1500 / 1500 1400 / 1400 Other: # Voids 5 Date of Last Bowel Movement 04/18/18 04/19/18 Narrative: GENERAL: Alert, NAD. SKIN: Warm and dry. HEAD: Normocephalic. EYES: No scleral icterus. No injection or drainage. NECK: Supple, trachea midline. No JVD or lymphadenopathy. CARDIOVASCULAR: Regular rate and rhythm without murmurs, gallops, or rubs. RESPIRATORY: Breath sounds equal bilaterally. No accessory muscle use. GASTROINTESTINAL: Abdomen soft, non-tender, nondistended. MUSCULOSKELETAL: No cyanosis, or edema. BACK: Nontender without obvious deformity. No CVA tenderness. Results - Labs CBC & Chem 7: 04/19/18 03:20 04/18/18 03:35 - Procedures BM biopsy Leal catheter placement Assessment and Plan - Assessment (1) AML (acute myeloid leukemia) Code(s): C92.00 - Acute myeloblastic leukemia, not having achieved remission Status: Acute - Plan Mr. Hall is a pleasant 27-year-old male who was admitted on 2017 due to generalized weakness. His hemoglobin was 3.3 and platelet 30 on admission. Hematology oncology was consulted for pancytopenia. Patient was eventually diagnosed with AML. Hematology oncology started treatment for AML. Acute myeloid leukemia -Confirmed with bone marrow biopsy on 04/13/2018. -Patient has received induction therapy 7+3 chemotherapy. Currently on Cytarabine. Tolerating chemotherapy well. -Hemoglobin 8.6, platelets 42K on 04/17/2018. Neutrophil count 500 on 2017. -Monitor for fever. Neutropenia - On neutropenic precautions. CBC in the AM. History of seizure -continue seizure precautions. Full code. SCDs. (1) AML (acute myeloid leukemia) Qualifiers: Leukemia Active/Remission status: without remission Qualified Code(s): C92.00 - Acute myeloblastic leukemia, not having achieved remission
[2018-04-20] MEDS: Senna/Docusate Sodium 8.6/50 MG Tablet PO SCH (21:11)
[2018-04-21] MEDS: Dexamethasone Inj 20 MG in Sodium Chlor 0.9% Inj 50 ML IV.SIG SCH (04:19)
[2018-04-21] MEDS: Granisetron 1 MG/ML Vial IV.PUSH SCH (04:20)
[2018-04-21] MEDS: SODIUM CHLOR 0.9% IV.SIG SCH (05:01)
[2018-04-21] MEDS: CYTARABINE IV.SIG SCH (05:01)
[2018-04-21 06:22] LABS: Hemoglobin 7.9 gm/dL (13.0-17.0); Mean Corpuscular HGB Conc 34.2 % (32.0-36.0); Mean Corpuscular Hemoglobin 29.3 pg (27.0-34.0); Mean Corpuscular Volume 85.7 fL (80.0-100.0); Mean Platelet Volume 7.9 fL (7.0-11.0); Red Blood Count 2.68 mil/mm3 (4.50-5.90); Red Cell Distribution Width 16.1 % (11.6-17.2); White Blood Count 0.3 th/mm3 (4.0-11.0)
[2018-04-21 06:37] LABS: Platelet Count 17 th/mm3 (150-450)
--- NOTE | 2018-04-21 08:21 | P.PN ---
Subjective Interval history: Follow up for AML. Patient is currently doing well. No fever, chills. No evidence of bleed. Overall feels good but somewhat fatigued. Inquires about how aggressive and prognosis of his diagnosis. I informed him that cytogenetics studies are still pending. He will discuss further with the oncology team. Physical Exam Vital signs: Vital Signs 04/20/18 09:25 04/20/18 12:00 04/20/18 14:55 Temperature 98.2 F 98.8 F Pulse Rate 68 64 Respiratory Rate 18 18 Blood Pressure 121/62 119/60 Pulse Oximetry 99 99 99 04/20/18 16:00 04/20/18 21:00 04/20/18 22:08 Temperature 98.3 F 98.1 F Pulse Rate 88 75 Respiratory Rate 18 17 Blood Pressure 129/71 119/63 Pulse Oximetry 100 99 04/21/18 00:00 04/21/18 04:00 04/21/18 04:37 Temperature 98.5 F 98.2 F Pulse Rate 85 85 83 Respiratory Rate 16 17 Blood Pressure 120/59 L 130/64 Pulse Oximetry 100 99 Intake & Output 04/20/18 04/21/18 04/21/18 18:59 06:59 18:59 Intake Total 1440 / 1440 1526.15 / 1526.15 Output Total 3700 / 3700 1800 / 1800 Balance -2260 / -2260 -273.85 / -273.85 Weight 109 kg Intake: IV 566.15 / 566.15 Christine-C Inj 223 MG In NS Inj 500 511.15 / 511.15 ML @ 21.298 mls/hr IV.SIG Q24H [facility] Rx#:[id number] Decadron Inj 20 MG In NS Inj 50 55 / 55 ML @ 330 mls/hr IV.SIG Q24H [facility] Rx#:[id number] Oral 1440 / 1440 960 / 960 Output: Urine 3700 / 3700 1800 / 1800 Other: Date of Last Bowel Movement 04/20/18 04/21/18 # Bowel Movements 1 Narrative: GENERAL: Alert, NAD. SKIN: Warm and dry. HEAD: Normocephalic. EYES: No scleral icterus. No injection or drainage. NECK: Supple, trachea midline. No JVD or lymphadenopathy. CARDIOVASCULAR: Regular rate and rhythm without murmurs, gallops, or rubs. RESPIRATORY: Breath sounds equal bilaterally. No accessory muscle use. GASTROINTESTINAL: Abdomen soft, non-tender, nondistended. MUSCULOSKELETAL: No cyanosis, or edema. BACK: Nontender without obvious deformity. No CVA tenderness. Results - Labs CBC & Chem 7: 04/21/18 04:20 04/18/18 03:35 Laboratory Results - last 24 hr 04/21/18 04:20 WBC 0.3 L RBC 2.68 L Hgb 7.9 L Hct 23.0 L MCV 85.7 MCH 29.3 MCHC 34.2 RDW 16.1 Plt Count 17 L* D MPV 7.9 Prelim Diff (Auto) Manual diff required Differential Comment . - Procedures BM biopsy Leal catheter placement Assessment and Plan - Assessment (1) AML (acute myeloid leukemia) Code(s): C92.00 - Acute myeloblastic leukemia, not having achieved remission Status: Acute - Plan Mr. Hall is a pleasant 27-year-old male who was admitted on 2017 due to generalized weakness. His hemoglobin was 3.3 and platelet 30 on admission. Hematology oncology was consulted for pancytopenia. Patient was eventually diagnosed with AML. Hematology oncology started treatment for AML. Acute myeloid leukemia -Confirmed with bone marrow biopsy on 04/13/2018. -Patient has received induction therapy 7+3 chemotherapy. Currently on Cytarabine. Tolerating chemotherapy well. -Hemoglobin 7.9, WBC 0.3, platelets 17K on 04/21/2018. Neutrophil count 500 on 04/19/2018. Neutrophil count pending this AM. -Monitor for fever. -Cytogenetics studies are pending. Neutropenia - On neutropenic precautions. History of seizure -continue seizure precautions. Full code. SCDs, Ambulation. (1) AML (acute myeloid leukemia) Qualifiers: Leukemia Active/Remission status: without remission Qualified Code(s): C92.00 - Acute myeloblastic leukemia, not having achieved remission
[2018-04-21 09:04] LABS: Lymphocytes 84 % (9-44); Platelet Estimate Rare (Normal); Platelet Morphology Normal (Normal)
[2018-04-21 09:05] LABS: RBC Morphology Normal (Normal)
[2018-04-21] MEDS: Heparin Central Flush 100 UNIT/ML 5 ML Vial IV.FLUSH SCH ×3 (10:53→11:05)
[2018-04-21] MEDS: Senna/Docusate Sodium 8.6/50 MG Tablet PO SCH ×2 (11:06→11:07)
--- NOTE | 2018-04-21 11:22 | P.PNONC ---
Subjective Interval history: Afebrile overnight. Pt has been experiencing insomnia-likely related to steroid use, he prefers to not take medications for this. He has no other complaints at this time. RN at bedside, pt educated on neutropenic precautions. Objective Vital Signs/Intake & Output: Vital Signs 04/20/18 12:00 04/20/18 14:55 04/20/18 16:00 Temperature 98.8 F 98.3 F Pulse Rate 64 Respiratory Rate 18 18 Blood Pressure 119/60 129/71 Pulse Oximetry 99 99 100 04/20/18 21:00 04/20/18 22:08 04/21/18 00:00 Temperature 98.1 F 98.5 F Pulse Rate 88 75 85 Respiratory Rate 17 16 Blood Pressure 119/63 120/59 L Pulse Oximetry 99 100 04/21/18 04:00 04/21/18 04:37 04/21/18 08:00 Temperature 98.2 F Pulse Rate 85 83 57 L Respiratory Rate 17 20 Blood Pressure 130/64 Pulse Oximetry 99 04/21/18 10:00 Temperature 98.1 F Pulse Rate 80 Respiratory Rate 18 Blood Pressure 122/71 Pulse Oximetry 99 Intake & Output 04/20/18 04/21/18 04/21/18 18:59 06:59 18:59 Intake Total 1440 / 1440 1526.15 / 1526.15 Output Total 3700 / 3700 1800 / 1800 Balance -2260 / -2260 -273.85 / -273.85 Weight 109 kg Intake: IV 566.15 / 566.15 Christine-C Inj 223 MG In NS Inj 500 511.15 / 511.15 ML @ 21.298 mls/hr IV.SIG Q24H [facility] Rx#:[id number] Decadron Inj 20 MG In NS Inj 50 55 / 55 ML @ 330 mls/hr IV.SIG Q24H [facility] Rx#:[id number] Oral 1440 / 1440 960 / 960 Output: Urine 3700 / 3700 1800 / 1800 Other: Date of Last Bowel Movement 04/20/18 04/21/18 # Bowel Movements 1 Result Diagrams: 04/21/18 04:20 04/18/18 03:35 Laboratory Results: Laboratory Results - last 24 hr 04/21/18 04:20 WBC 0.3 L RBC 2.68 L Hgb 7.9 L Hct 23.0 L MCV 85.7 MCH 29.3 MCHC 34.2 RDW 16.1 Plt Count 17 L* D MPV 7.9 Prelim Diff (Auto) Manual diff required WBC Differential Manual diff final Seg Neuts % (Manual) 16 Lymphocytes % (Manual) 84 H Abs Neuts (Manual) 0.0 L* Differential Comment . Platelet Estimate Rare L Platelet Morphology Normal RBC Morphology Normal Medications: Active Medications Generic Name Dose Route Start Last Admin Trade Name Freq PRN Reason Stop Dose Admin Granisetron HCl 1 mg 04/16/18 13:30 04/21/18 04:20 Kytril Inj IV.PUSH 04/21/18 13:31 1 mg Q24H [facility] Administration Heparin Sodium (Porcine) 0 unit 04/16/18 00:00 04/19/18 03:20 Heparin Central Flush IV.FLUSH 200 unit PRN PRN Administration Flush each lumen Heparin Sodium (Porcine) 0 unit 04/16/18 09:00 04/21/18 11:05 Heparin Central Flush IV.FLUSH Not Given DAILY [facility] Cytarabine 223 mg/ Sodium 511.15 mls @ 21.298 mls/hr 04/16/18 14:00 04/21/18 05:01 Chloride IV.SIG 04/22/18 13:59 21.3 mls/hr Q24H [facility] Administration Dexamethasone Sodium Phosphate 55 mls @ 330 mls/hr 04/16/18 13:30 04/21/18 04 :30 20 mg/ Sodium Chloride IV.SIG 04/21/18 13:39 Infused Q24H [facility] Infusion Miscellaneous Information 1 each 04/16/18 00:00 04/16/18 13:22 Mis Nursing Information OTHER Not Given Q361D [facility] Pantoprazole Sodium 40 mg 04/16/18 09:00 04/21/18 10:51 Protonix PO 40 mg DAILY [facility] Administration Senna/Docusate Sodium 1 tab 04/16/18 09:00 04/21/18 11:07 Margie-Colace PO Not Given BID [facility] Sodium Chloride 0 ml 04/16/18 09:00 04/21/18 11:03 Ns Flush IV.FLUSH 10 ml DAILY [facility] Administration Sodium Chloride 0 ml 04/16/18 00:00 04/19/18 09:09 Ns Flush IV.FLUSH 2 ml PRN PRN Administration FLUSH AFTER USING IV ACCESS Objective Remarks: GENERAL: Well-nourished, well-developed young male patient, in no acute distress. SKIN: Warm and dry. Leal catheter to right chest wall, dressing dry/intact dated 04/20/18. HEAD: Normocephalic. EYES: No scleral icterus. No injection or drainage. MOUTH: [place] moist mucous membranes. No sores or thrush. NECK: Supple, trachea midline. CARDIOVASCULAR: +S1/S2. Regular rate and rhythm without murmurs. RESPIRATORY: Posterior breath sounds clear & equal bilaterally. No accessory muscle use. GASTROINTESTINAL: Abdomen soft, non-tender, nondistended. EXTREMITIES: No cyanosis, or edema. MUSCULOSKELETAL: Adequate muscle tone. NEUROLOGICAL: No obvious focal deficit. Awake, alert, and oriented x3. PSYCHIATRIC: Appropriate mood and affect; insight and judgment normal. Assessment/Plan (1) Pancytopenia due to antineoplastic chemotherapy Code(s): D61.810 - Antineoplastic chemotherapy induced pancytopenia; T45.1X5A - Adverse effect of antineoplastic and immunosuppressive drugs, initial encounter Status: Acute (2) AML (acute myeloid leukemia) Code(s): C92.00 - Acute myeloblastic leukemia, not having achieved remission Status: Acute - Plan 04/15 D1 Daunorubicin + Cytarabine 04/16: D2 Daunorubicin + Cytarabine 04/17: D3 Daunorubicin + Cytarabine 04/18: D4 Cytarabine. Afebrile. Tolerating chemo well. 04/19: D5 Cytarabine continue 04/20: D6 Cytarabine continues. 04/21: D7 Cytarabine continues. Afebrile, tolerating well. 1. Continue induction 7+3 chemotherapy today. Tolerating chemo well. 2. Neutropenic precautions. 3. Continue to monitor for fevers, notify provider and obtain blood cultures per policy. 4. Molecular studies to determine prognosis and possibility of bone marrow transplant, pending. 5. Anemia and thrombocytopenia, continue to monitor. Will transfuse CMV negative, irradiated packed red blood cells when transfusion becomes necessary. - Attending Statement The exam, history, and the medical decision-making described in the above note were completed with the assistance of the mid-level provider. I reviewed and agree with the findings presented. I attest that I had a [id number] encounter with the patient on the same day, and personally performed and documented my assessment and findings in the medical record. Pt seen and examined with parents. Discussed the cytogenetics results. Continue with planned induction. Transfuse for hgb <7.0 and platelet <15K or symptoms. Continue to monitor for fever. Patient's father's FMLA paper was filled out and sent to the administrative officer. (2) AML (acute myeloid leukemia) Qualifiers: Leukemia Active/Remission status: without remission Qualified Code(s): C92.00 - Acute myeloblastic leukemia, not having achieved remission
[2018-04-21] MEDS ORDERED: Sodium Chlor 0.9% Inj 250 ML IV.SIG SCH (18:00)
[2018-04-22] MEDS: Morphine Inj 4 MG/ML Vial IV.PUSH PRN ×3 (02:18→08:21)
[2018-04-22 06:15] LABS: Hematocrit 23.7 % (39.0-51.0); Hemoglobin 8.1 gm/dL (13.0-17.0); Mean Corpuscular HGB Conc 34.1 % (32.0-36.0); Mean Corpuscular Hemoglobin 28.9 pg (27.0-34.0); Mean Corpuscular Volume 84.7 fL (80.0-100.0); Mean Platelet Volume 7.9 fL (7.0-11.0); Red Cell Distribution Width 16.1 % (11.6-17.2); White Blood Count 0.3 th/mm3 (4.0-11.0)
[2018-04-22 06:21] LABS: Platelet Count 14 th/mm3 (150-450)
[2018-04-22 06:25] LABS: Albumin 3.2 g/dL (3.4-5.0); Anion Gap 10 meq/L (5-15); Aspartate Aminotransferase 33 U/L (15-37); Blood Urea Nitrogen 12 mg/dL (7-18); Calcium 8.3 mg/dL (8.5-10.1); Carbon Dioxide 24.8 meq/L (21.0-32.0); Chloride 102 meq/L (98-107); Glomerular Filtration Rate Greater Than 89 mL/min (>89); Glucose,Random 94 mg/dL (74-106); Potassium 3.8 meq/L (3.5-5.1); Sodium 137 meq/L (136-145)
[2018-04-22 06:26] LABS: Alanine Aminotransferase 172 U/L (12-78)
[2018-04-22 06:28] LABS: Alkaline Phosphatase 76 U/L (45-117); Total Protein 6.1 g/dL (6.4-8.2)
[2018-04-22] MEDS: Dexamethasone Inj 20 MG in Sodium Chlor 0.9% Inj 50 ML IV.SIG SCH (06:45)
[2018-04-22] MEDS: Acetaminophen 325 MG Tablet PO PRN (07:18)
[2018-04-22] MEDS: SODIUM CHLOR 0.9% IV.SIG SCH (07:27)
[2018-04-22] MEDS: CYTARABINE IV.SIG SCH (07:27)
[2018-04-22] MEDS ORDERED: Granisetron 1 MG/ML Vial IV.PUSH SCH (07:30)
[2018-04-22 08:24] LABS: Lymphocytes 96 % (9-44); Platelet Estimate Rare (Normal); Platelet Morphology Normal (Normal)
[2018-04-22 08:25] LABS: Tear Drop Cells 1+
[2018-04-22] MEDS: Heparin Central Flush 100 UNIT/ML 5 ML Vial IV.FLUSH SCH (08:59)
--- NOTE | 2018-04-22 09:30 | P.PNONC ---
Subjective Interval history: Pt lying in bed, complains of severe lower jaw pain. reports it started in the middle of the night. No other complaints at this time. He has had 3 doses of morphine q 2 hours for this pain. No other complaints at this time. Received platelet transfusion this a.m. afebrile overnight. Objective Vital Signs/Intake & Output: Vital Signs 04/21/18 10:00 04/21/18 12:00 04/21/18 16:00 Temperature 98.1 F 98.1 F 98.4 F Pulse Rate 80 89 90 Respiratory Rate 18 18 18 Blood Pressure 122/71 129/73 148/77 H Pulse Oximetry 99 100 04/21/18 20:00 04/21/18 20:04 04/22/18 00:10 Temperature 98.6 F Pulse Rate 81 72 83 Respiratory Rate 20 Blood Pressure 127/65 Pulse Oximetry 98 04/22/18 00:29 04/22/18 02:29 04/22/18 04:05 Temperature 98.4 F Pulse Rate 67 73 Respiratory Rate 18 18 Blood Pressure 128/71 Pulse Oximetry 100 04/22/18 05:22 04/22/18 05:50 04/22/18 07:00 Temperature 97.8 F Pulse Rate 91 H 58 L Respiratory Rate 18 18 Blood Pressure 134/91 H Pulse Oximetry 100 04/22/18 08:14 04/22/18 08:27 04/22/18 08:55 Temperature 97.2 F L 98.2 F Pulse Rate 101 H 105 H Respiratory Rate 18 18 Blood Pressure 131/79 135/78 Pulse Oximetry 100 99 04/22/18 09:00 Temperature Pulse Rate Respiratory Rate 18 Blood Pressure Pulse Oximetry Intake & Output 04/21/18 04/22/18 04/22/18 18:59 06:59 18:59 Intake Total 1231.15 / 1231.15 0 / 0 Output Total 1900 / 1900 Balance -668.85 / -668.85 0 / 0 Weight 105.4 kg Intake: IV 511.15 / 511.15 Christine-C Inj 223 MG In NS Inj 500 511.15 / 511.15 ML @ 21.298 mls/hr IV.SIG Q24H GILMA Rx#:[id number] Oral 720 / 720 Intake (Blood Product) Amt 0 / 0 Plt Pheresis A Lr/Irr Unit 0 / 0 [id number] Output: Urine 1900 / 1900 Other: Date of Last Bowel Movement 04/20/18 04/21/18 04/22/18 Result Diagrams: 04/22/18 05:20 04/22/18 05:20 Laboratory Results: Laboratory Results - last 24 hr 04/22/18 04/22/18 04/22/18 05:20 05:20 05:20 WBC 0.3 L RBC 2.80 L Hgb 8.1 L Hct 23.7 L MCV 84.7 MCH 28.9 MCHC 34.1 RDW 16.1 Plt Count 14 L* MPV 7.9 Prelim Diff (Auto) Manual diff required WBC Differential Manual diff final Seg Neuts % (Manual) 4 L Lymphocytes % (Manual) 96 H Abs Neuts (Manual) 0.0 L* Differential Comment . Platelet Estimate Rare L Platelet Morphology Normal Tear Drop Cells 1+ H Sodium 137 Potassium 3.8 Chloride 102 Carbon Dioxide 24.8 Anion Gap 10 BUN 12 Creatinine 0.59 L Estimated GFR Greater than 89 Random Glucose 94 Calcium 8.3 L Total Bilirubin 0.3 AST 33 ALT 172 H Alkaline Phosphatase 76 Total Protein 6.1 L Albumin 3.2 L Blood Type O Positive Blood Type Confirm Blood Type Recheck Not needed Antibody Screen Negative MTS Gel Crossmatch See Detail Bld Prod Order Comment ND 04/22/18 04/22/18 06:44 06:46 WBC RBC Hgb Hct MCV MCH MCHC RDW Plt Count MPV Prelim Diff (Auto) WBC Differential Seg Neuts % (Manual) Lymphocytes % (Manual) Abs Neuts (Manual) Differential Comment Platelet Estimate Platelet Morphology Tear Drop Cells Sodium Potassium Chloride Carbon Dioxide Anion Gap BUN Creatinine Estimated GFR Random Glucose Calcium Total Bilirubin AST ALT Alkaline Phosphatase Total Protein Albumin Blood Type Blood Type Confirm O Positive Blood Type Recheck Antibody Screen MTS Gel Crossmatch Bld Prod Order Comment Medications: Active Medications Generic Name Dose Route Start Last Admin Trade Name Freq PRN Reason Stop Dose Admin Acetaminophen 650 mg 04/16/18 00:00 04/22/18 07:18 Tylenol PO 650 mg Q4H PRN Administration SEE LABEL COMMENTS Diphenhydramine HCl 25 mg 04/16/18 00:00 04/22/18 07:18 Benadryl PO 25 mg Q4H PRN Administration SEE LABEL COMMENTS Heparin Sodium (Porcine) 0 unit 04/16/18 00:00 04/19/18 03:20 Heparin Central Flush IV.FLUSH 200 unit PRN PRN Administration Flush each lumen Heparin Sodium (Porcine) 0 unit 04/16/18 09:00 04/22/18 08:59 Heparin Central Flush IV.FLUSH 500 unit DAILY GILMA Administration Cytarabine 223 mg/ Sodium 511.15 mls @ 21.298 mls/hr 04/16/18 14:00 04/22/18 07:27 Chloride IV.SIG 04/22/18 13:59 21.3 mls/hr Q24H GILMA Administration Sodium Chloride 250 mls @ 15 mls/hr 04/21/18 18:00 04/22/18 08:24 Ns Inj IV.SIG 04/22/18 10:39 15 mls/hr ONCE GILMA Administration Miscellaneous Information 1 each 04/16/18 00:00 04/16/18 13:22 [facility] [place] Not Given Q361D [facility] Morphine Sulfate 2 mg 04/16/18 00:00 04/22/18 08:21 Morphine Inj IV.PUSH 2 mg Q2H PRN Administration PAIN SCALE 6 TO 10 Pantoprazole Sodium 40 mg 04/16/18 09:00 04/22/18 08:21 Protonix PO 40 mg DAILY GILMA Administration Sodium Chloride 0 ml 04/16/18 09:00 04/22/18 08:59 Ns Flush IV.FLUSH 10 ml DAILY GILMA Administration Sodium Chloride 0 ml 04/16/18 00:00 04/19/18 09:09 Ns Flush IV.FLUSH 2 ml PRN PRN Administration FLUSH AFTER USING IV ACCESS Objective Remarks: GENERAL: Well-nourished, well-developed young male patient, in no acute distress. SKIN: Warm and dry. Leal catheter to right chest wall, dressing dry/intact. HEAD: Normocephalic. EYES: No scleral icterus. No injection or drainage. MOUTH: [place] moist mucous membranes. No sores or thrush. Gums inflamed/swollen, plaque buildup at gum lines. NECK: Supple, trachea midline. CARDIOVASCULAR: +S1/S2. Regular rate and rhythm without murmurs. RESPIRATORY: breath sounds clear & equal bilaterally. No accessory muscle use. GASTROINTESTINAL: Abdomen soft, non-tender, nondistended. EXTREMITIES: No cyanosis, or edema. MUSCULOSKELETAL: Adequate muscle tone. NEUROLOGICAL: No obvious focal deficit. Awake, alert, and oriented x3. PSYCHIATRIC: Appropriate mood and affect; insight and judgment normal. Assessment/Plan - Plan 04/15 D1 Daunorubicin + Cytarabine 04/16: D2 Daunorubicin + Cytarabine 7: D3 Daunorubicin + Cytarabine 04/18: D4 Cytarabine. Afebrile. Tolerating chemo well. 04/19: D5 Cytarabine continue 04/20: D6 Cytarabine continues. 04/21: D7 Cytarabine continues. Afebrile, tolerating well. 04/22: D8 cytarabine. Afebrile, platelet transfusion this a.m. Now with jaw pain. 1. Continue induction 7+3 chemotherapy today. Tolerating chemo well. 2. Neutropenic precautions. 3. Continue to monitor for fevers, notify provider and obtain blood cultures per policy. 4. Molecular studies to determine prognosis and possibility of bone marrow transplant, pending. 5. Anemia and thrombocytopenia, continue to monitor. Transfuse for hgb <7.0 and platelet <15K or symptoms. 6. Lower jaw pain with swollen gums. Will start magic mouthwash and continue to monitor for fever or worsening s/s. - Attending Statement The exam, history, and the medical decision-making described in the above note were completed with the assistance of the mid-level provider. I reviewed and agree with the findings presented. I attest that I had a [id number] encounter with the patient on the same day, and personally performed and documented my assessment and findings in the medical record. Patient was complaining of lower jaw pain this morning but symptom has improved. No erythema noted on exam. He will start last dose of cytarabine today. Platelet count down to 14,000 he will receive platelet transfusion today. Continue monitor closely for fever. We will give him Lortab 5 as needed for pain.
[2018-04-22] MEDS: Granisetron 1 MG/ML Vial IV.PUSH SCH (09:55)
--- NOTE | 2018-04-22 10:56 | P.PN ---
Subjective Interval history: Follow up for AML. Patient is currently doing well. Family members are at bedside. Patient was brushing teeth when I saw him. He complains of jaw pain. No fever or chills. Physical Exam Vital signs: Vital Signs 04/21/18 12:00 04/21/18 16:00 04/21/18 20:00 Temperature 98.1 F 98.4 F Pulse Rate 89 90 81 Respiratory Rate 18 18 Blood Pressure 129/73 148/77 H Pulse Oximetry 100 04/21/18 20:04 04/22/18 00:10 04/22/18 00:29 Temperature 98.6 F 98.4 F Pulse Rate 72 83 67 Respiratory Rate 20 18 Blood Pressure 127/65 128/71 Pulse Oximetry 98 100 04/22/18 02:29 04/22/18 04:05 04/22/18 05:22 Temperature 97.8 F Pulse Rate 73 91 H Respiratory Rate 18 18 Blood Pressure 134/91 H Pulse Oximetry 100 04/22/18 05:50 04/22/18 07:00 04/22/18 08:14 Temperature 97.2 F L Pulse Rate 58 L 101 H Respiratory Rate 18 18 Blood Pressure 131/79 Pulse Oximetry 04/22/18 08:27 04/22/18 08:55 04/22/18 09:00 Temperature 98.2 F Pulse Rate 105 H Respiratory Rate 18 18 Blood Pressure 135/78 Pulse Oximetry 100 99 Intake & Output 04/21/18 04/22/18 04/22/18 18:59 06:59 18:59 Intake Total 1231.15 / 1231.15 55 / 55 Output Total 190 / 1900 Balance -668.85 / -668.85 55 / 55 Weight 105.4 kg Intake: IV 511.15 / 511.15 55 / 55 Christine-C Inj 223 MG In NS Inj 500 511.15 / 511.15 ML @ 21.298 mls/hr IV.SIG Q24H GILMA Rx#:[id number] Oral 720 / 720 Intake (Blood Product) Amt 0 / 0 Plt Pheresis A Lr/Irr Unit 0 / 0 [id number] Output: Urine 1899 Other: Date of Last Bowel Movement 04/20/18 04/21/18 04/22/18 Narrative: GENERAL: Alert, NAD. SKIN: Warm and dry. HEAD: Normocephalic. EYES: No scleral icterus. No injection or drainage. NECK: Supple, trachea midline. No JVD or lymphadenopathy. CARDIOVASCULAR: Regular rate and rhythm without murmurs, gallops, or rubs. RESPIRATORY: Breath sounds equal bilaterally. No accessory muscle use. GASTROINTESTINAL: Abdomen soft, non-tender, nondistended. MUSCULOSKELETAL: No cyanosis, or edema. BACK: Nontender without obvious deformity. No CVA tenderness. Results - Labs CBC & Chem 7: 04/22/18 05:20 04/22/18 05:20 Laboratory Results - last 24 hr 04/22/18 04/22/18 04/22/18 05:20 05:20 05:20 WBC 0.3 L RBC 2.80 L Hgb 8.1 L Hct 23.7 L MCV 84.7 MCH 28.9 MCHC 34.1 RDW 16.1 Plt Count 14 L* MPV 7.9 Prelim Diff (Auto) Manual diff required WBC Differential Manual diff final Seg Neuts % (Manual) 4 L Lymphocytes % (Manual) 96 H Abs Neuts (Manual) 0.0 L* Differential Comment . Platelet Estimate Rare L Platelet Morphology Normal Tear Drop Cells 1+ H Sodium 137 Potassium 3.8 Chloride 102 Carbon Dioxide 24.8 Anion Gap 10 BUN 12 Creatinine 0.59 L Estimated GFR Greater than 89 Random Glucose 94 Calcium 8.3 L Total Bilirubin 0.3 AST 33 ALT 172 H Alkaline Phosphatase 76 Total Protein 6.1 L Albumin 3.2 L Blood Type O Positive Blood Type Confirm Blood Type Recheck Not needed Antibody Screen Negative MTS Gel Crossmatch See Detail Bld Prod Order Comment ND 04/22/18 04/22/18 06:44 06:46 WBC RBC Hgb Hct MCV MCH MCHC RDW Plt Count MPV Prelim Diff (Auto) WBC Differential Seg Neuts % (Manual) Lymphocytes % (Manual) Abs Neuts (Manual) Differential Comment Platelet Estimate Platelet Morphology Tear Drop Cells Sodium Potassium Chloride Carbon Dioxide Anion Gap BUN Creatinine Estimated GFR Random Glucose Calcium Total Bilirubin AST ALT Alkaline Phosphatase Total Protein Albumin Blood Type Blood Type Confirm O Positive Blood Type Recheck Antibody Screen MTS Gel Crossmatch Bld Prod Order Comment - Procedures BM biopsy Leal catheter placement Echo 04/14/2018 The left ventricular systolic function is hyperdynamic with an estimated ejection fraction in the range of 65- 70%. Normal left ventricular size. Wall thickness is normal. No regional wall motion abnormalities are present. Trace mitral valve regurgitation. The left ventricular systolic function is hyperdynamic with an estimated ejection fraction in the range of 65- 70%. Normal left ventricular size. Wall thickness is normal. No regional wall motion abnormalities are present. Trace mitral valve regurgitation. The estimated pulmonary arterial pressure is 30.6 mmHg. Assessment and Plan - Assessment (1) AML (acute myeloid leukemia) Code(s): C92.00 - Acute myeloblastic leukemia, not having achieved remission Status: Acute - Plan Mr. Hall is a pleasant 27-year-old male who was admitted on 2017 due to generalized weakness. His hemoglobin was 3.3 and platelet 30 on admission. Hematology oncology was consulted for pancytopenia. Patient was eventually diagnosed with AML. Hematology oncology started treatment for AML. Acute myeloid leukemia -Confirmed with bone marrow biopsy on 04/13/2018. -Patient has received induction therapy 7+3 chemotherapy. Currently on Cytarabine. Tolerating chemotherapy well. -Hemoglobin 7.9, WBC 0.3, platelets 14K on 04/22/2018. Neutrophil count essentially zero on 04/22/2018. -Monitor for fever. -Cytogenetics studies are pending. Jaw pain - possibly related to AML/Treatments. If pain persists, may need a CT study. Neutropenia - On neutropenic precautions. History of seizure -continue seizure precautions. Full code. SCDs, Ambulation. (1) AML (acute myeloid leukemia) Qualifiers: Leukemia Active/Remission status: without remission Qualified Code(s): C92.00 - Acute myeloblastic leukemia, not having achieved remission
[2018-04-22] MEDS: Nystatin/Diphenhydramine/Lidocaine Mouthwash (Adult) 120 ML Botttle SWISH-SWAL SCH ×3 (12:31→20:07)
[2018-04-23] MEDS: Morphine Inj 4 MG/ML Vial IV.PUSH PRN ×3 (01:03→12:56)
[2018-04-23 06:15] LABS: Hematocrit 22.5 % (39.0-51.0); Hemoglobin 7.8 gm/dL (13.0-17.0); Mean Corpuscular HGB Conc 34.7 % (32.0-36.0); Mean Corpuscular Hemoglobin 28.9 pg (27.0-34.0); Mean Corpuscular Volume 83.4 fL (80.0-100.0); Mean Platelet Volume 7.3 fL (7.0-11.0); Platelet Count 29 th/mm3 (150-450); Red Cell Distribution Width 16.4 % (11.6-17.2); White Blood Count 0.1 th/mm3 (4.0-11.0)
[2018-04-23 06:35] LABS: Albumin 3.5 g/dL (3.4-5.0); Anion Gap 11 meq/L (5-15); Aspartate Aminotransferase 24 U/L (15-37); Blood Urea Nitrogen 10 mg/dL (7-18); Calcium 7.8 mg/dL (8.5-10.1); Carbon Dioxide 24.8 meq/L (21.0-32.0); Chloride 95 meq/L (98-107); Glomerular Filtration Rate Greater Than 89 mL/min (>89); Glucose,Random 106 mg/dL (74-106); Potassium 3.5 meq/L (3.5-5.1); Sodium 131 meq/L (136-145)
[2018-04-23 06:38] LABS: Alanine Aminotransferase 130 U/L (12-78); Alkaline Phosphatase 72 U/L (45-117); Total Protein 6.6 g/dL (6.4-8.2)
[2018-04-23] MEDS: Heparin Central Flush 100 UNIT/ML 5 ML Vial IV.FLUSH SCH (08:02)
[2018-04-23] MEDS: Nystatin/Diphenhydramine/Lidocaine Mouthwash (Adult) 120 ML Botttle SWISH-SWAL SCH ×4 (08:03→21:09)
--- NOTE | 2018-04-23 09:33 | P.PNONC ---
Subjective Interval history: -Afebrile overnight. -Pt sitting up in bed, c/o 7/10 tooth & lower jaw pain. He states that he feels like he has something stuck in between his mandibular central incisors. unrelieved with narcotic pain meds. Some relief with magic mouthwash and ice water. -Reports unable to sleep x's 2 days. Now willing to take a sleep aid. -C/o diarrhea, which started Tuesday night. 3 watery bm's per day. Objective Vital Signs/Intake & Output: Vital Signs 04/22/18 11:00 04/22/18 11:12 04/22/18 15:18 Temperature 98.5 F 97.7 F Pulse Rate 81 82 97 H Respiratory Rate 18 18 Blood Pressure 148/79 H 133/81 Pulse Oximetry 100 99 04/22/18 15:49 04/22/18 19:14 04/22/18 19:43 Temperature Pulse Rate 88 70 Respiratory Rate 18 Blood Pressure Pulse Oximetry 04/22/18 19:49 04/22/18 23:14 04/22/18 23:17 Temperature 97.8 F 97.8 F Pulse Rate 71 69 Respiratory Rate 20 20 Blood Pressure 149/82 H 163/86 H Pulse Oximetry 100 97 04/23/18 00:08 04/23/18 01:02 04/23/18 01:10 Temperature Pulse Rate 75 Respiratory Rate 18 16 Blood Pressure Pulse Oximetry 04/23/18 05:20 04/23/18 07:00 04/23/18 07:58 Temperature 98.2 F 98.2 F Pulse Rate 77 124 H 106 H Respiratory Rate 18 18 Blood Pressure 157/92 H 128/87 Pulse Oximetry 100 100 Intake & Output 04/22/18 04/23/18 04/23/18 18:59 06:59 18:59 Intake Total 4015 / 4015 1989 Output Total 4450 / 4450 1100 / 1100 Balance -435 / -435 890 / 890 Weight 112.3 kg Intake: IV 55 / 55 250 / 250 Oral 3960 / 3960 1740 / 1740 Intake (Blood Product) Amt 0 / 0 Plt Pheresis A Lr/Irr Unit 0 / 0 [id number] Output: Urine 4450 / 4450 1100 / 1100 Other: Date of Last Bowel Movement 04/22/18 04/23/18 04/23/18 # Bowel Movements 3 Result Diagrams: 04/23/18 05:30 04/23/18 05:30 Laboratory Results: Laboratory Results - last 24 hr 04/23/18 04/23/18 05:30 05:30 WBC 0.1 L RBC 2.70 L Hgb 7.8 L Hct 22.5 L MCV 83.4 MCH 28.9 MCHC 34.7 RDW 16.4 Plt Count 29 L D MPV 7.3 Prelim Diff (Auto) Manual diff required Differential Comment . Sodium 131 L Potassium 3.5 Chloride 95 L Carbon Dioxide 24.8 Anion Gap 11 BUN 10 Creatinine 0.61 Estimated GFR Greater than 89 Random Glucose 106 Calcium 7.8 L Total Bilirubin 0.8 AST 24 ALT 130 H Alkaline Phosphatase 72 Total Protein 6.6 Albumin 3.5 Medications: Active Medications Generic Name Dose Route Start Last Admin Trade Name Freq PRN Reason Stop Dose Admin Acetaminophen 650 mg 04/16/18 00:00 04/22/18 07:18 Tylenol PO 650 mg Q4H PRN Administration SEE LABEL COMMENTS Hydrocodone Bitart/Acetaminophen 1 tab 04/22/18 11:44 04/23/18 00:34 [place] 5/325 PO 1 tab Q6H PRN Administration pain 4-10 Diphenhydramine HCl 25 mg 04/16/18 00:00 04/22/18 07:18 Benadryl PO 25 mg Q4H PRN Administration SEE LABEL COMMENTS Heparin Sodium (Porcine) 0 unit 04/16/18 00:00 04/19/18 03:20 Heparin Central Flush IV.FLUSH 200 unit PRN PRN Administration Flush each lumen Heparin Sodium (Porcine) 0 unit 04/16/18 09:00 04/23/18 08:02 Heparin Central Flush IV.FLUSH 500 unit DAILY GILMA Administration Miscellaneous Information 1 each 04/16/18 00:00 04/16/18 13:22 Mis Nursing Information OTHER Not Given Q361D GILMA Morphine Sulfate 2 mg 04/16/18 00:00 04/23/18 01:03 Morphine Inj IV.PUSH 2 mg Q2H PRN Administration PAIN SCALE 6 TO 10 Multi-Ingredient Mouthwash/Gargle 5 ml 04/22/18 13:00 04/23/18 08:03 Magic Mouthwash Adult Liq SWISH-SWAL 5 ml QID GILMA Administration Pantoprazole Sodium 40 mg 04/16/18 09:00 04/23/18 08:03 Protonix PO 40 mg DAILY GILMA Administration Sodium Chloride 0 ml 04/16/18 09:00 04/23/18 08:02 Ns Flush IV.FLUSH 10 ml DAILY GILMA Administration Sodium Chloride 0 ml 04/16/18 00:00 04/19/18 09:09 Ns Flush IV.FLUSH 2 ml PRN PRN Administration FLUSH AFTER USING IV ACCESS Objective Remarks: GENERAL: Well-nourished, well-developed young male patient, sitting upright in bed. SKIN: Flushed, Warm and dry. Leal catheter to right chest wall, dressing dry/ intact. HEAD: Normocephalic. EYES: No scleral icterus. No injection or drainage. MOUTH: [place] moist mucous membranes. No sores or thrush. Gums inflamed/swollen, plaque buildup at gum lines, mandibular central incisor gums darkened. NECK: Supple, trachea midline. CARDIOVASCULAR: +S1/S2. Regular rate and rhythm without murmurs. RESPIRATORY: breath sounds clear & equal bilaterally. No accessory muscle use. GASTROINTESTINAL: Abdomen soft, non-tender, nondistended. EXTREMITIES: No cyanosis, or edema. MUSCULOSKELETAL: Adequate muscle tone. NEUROLOGICAL: No obvious focal deficit. Awake, alert, and oriented x3. PSYCHIATRIC: Appropriate mood and affect; insight and judgment normal. Assessment/Plan - Plan 04/15 D1 Daunorubicin + Cytarabine 7: D2 Daunorubicin + Cytarabine 72: D3 Daunorubicin + Cytarabine 04/18: D4 Cytarabine. Afebrile. Tolerating chemo well. 04/19: D5 Cytarabine continue 04/20: D6 Cytarabine continues. 04/21: D7 Cytarabine continues. Afebrile, tolerating well. 04/22: D8 cytarabine. Afebrile, platelet transfusion this a.m. Now with jaw pain. 04/23: D9 Cytarabine completed overnight. Afebrile. Continued jaw pain. Diarrhea 3 x's/day, +n/v x's 1, + insomnia. 1. Continue induction 7+3 chemotherapy completed overnight. 2. Neutropenic precautions. 3. Continue to monitor for fevers, notify provider and obtain blood cultures per policy. 4. Anemia and thrombocytopenia, continue to monitor. Transfuse for hgb <7.0 and platelet <15K or symptoms. 5. Lower jaw pain with swollen gums, continues. Will add viscous lidocaine swish and spit to regimen and chlorhexidine antibacterial rinse. CT facial bones to evaluate further. 6. Gatorade added to dietary regimen for electrolyte supplementation. Will continue to monitor electrolytes. 7. Will start Restoril tonight for insomnia. 8. Will obtain c-diff culture. Updated entry @ 4407: --CT facial bones negative for acute process. Will consult oral surgeon for evaluation. --Pt now with low grade fever 99.2, flushed and shivering. Blood cultures ordered, will start cefipime 2gm q 8 hours. - Attending Statement The exam, history, and the medical decision-making described in the above note were completed with the assistance of the mid-level provider. I reviewed and agree with the findings presented. I attest that I had a [id number] encounter with the patient on the same day, and personally performed and documented my assessment and findings in the medical record. Patient still complaining of jaw pain. CT of the facial bones was negative. The Lortab is not helping. He is using Viscous Lidocaine. Will consult oral surgeon for further evaluation. Patient has diarrhea and C. difficile test is pending. Patient had developed low-grade temperature. We will check culture and start him on cefepime.
--- NOTE | 2018-04-23 10:01 | P.PN ---
Subjective Interval history: Follow up for AML. Patient is currently doing well. However he complains of persistent jaw pain. No fever or chills. Physical Exam Vital signs: Vital Signs 04/22/18 11:00 04/22/18 11:12 04/22/18 15:18 Temperature 98.5 F 97.7 F Pulse Rate 81 82 97 H Respiratory Rate 18 18 Blood Pressure 148/79 H 133/81 Pulse Oximetry 100 99 04/22/18 15:49 04/22/18 19:14 04/22/18 19:43 Temperature Pulse Rate 88 70 Respiratory Rate 18 Blood Pressure Pulse Oximetry 04/22/18 19:49 04/22/18 23:14 04/22/18 23:17 Temperature 97.8 F 97.8 F Pulse Rate 71 69 Respiratory Rate 20 20 Blood Pressure 149/82 H 163/86 H Pulse Oximetry 100 97 04/23/18 00:08 04/23/18 01:02 04/23/18 01:10 Temperature Pulse Rate 75 Respiratory Rate 18 16 Blood Pressure Pulse Oximetry 04/23/18 05:20 04/23/18 07:00 04/23/18 07:58 Temperature 98.2 F 98.2 F Pulse Rate 77 124 H 106 H Respiratory Rate 18 18 Blood Pressure 157/92 H 128/87 Pulse Oximetry 100 100 Intake & Output 04/22/18 04/23/18 04/23/18 18:59 06:59 18:59 Intake Total 4015 / 4015 1989 Output Total 4450 / 4450 1100 / 1100 Balance -435 / -435 890 / 890 Weight 112.3 kg Intake: IV 55 / 55 250 / 250 Oral 3960 / 3960 1740 / 1740 Intake (Blood Product) Amt 0 / 0 Plt Pheresis A Lr/Irr Unit 0 / 0 [id number] Output: Urine 4450 / 4450 1100 / 1100 Other: Date of Last Bowel Movement 04/22/18 04/23/18 04/23/18 # Bowel Movements 3 Narrative: GENERAL: Alert, NAD. SKIN: Warm and dry. HEAD: Normocephalic. EYES: No scleral icterus. No injection or drainage. NECK: Supple, trachea midline. No JVD or lymphadenopathy. CARDIOVASCULAR: Regular rate and rhythm without murmurs, gallops, or rubs. RESPIRATORY: Breath sounds equal bilaterally. No accessory muscle use. GASTROINTESTINAL: Abdomen soft, non-tender, nondistended. MUSCULOSKELETAL: No cyanosis, or edema. BACK: Nontender without obvious deformity. No CVA tenderness. Results - Labs CBC & Chem 7: 04/23/18 05:30 04/23/18 05:30 Laboratory Results - last 24 hr 04/23/18 04/23/18 05:30 05:30 WBC 0.1 L RBC 2.70 L Hgb 7.8 L Hct 22.5 L MCV 83.4 MCH 28.9 MCHC 34.7 RDW 16.4 Plt Count 29 L D MPV 7.3 Prelim Diff (Auto) Manual diff required Differential Comment . Sodium 131 L Potassium 3.5 Chloride 95 L Carbon Dioxide 24.8 Anion Gap 11 BUN 10 Creatinine 0.61 Estimated GFR Greater than 89 Random Glucose 106 Calcium 7.8 L Total Bilirubin 0.8 AST 24 ALT 130 H Alkaline Phosphatase 72 Total Protein 6.6 Albumin 3.5 - Procedures BM biopsy Leal catheter placement Echo 04/14/2018 The left ventricular systolic function is hyperdynamic with an estimated ejection fraction in the range of 65- 70%. Normal left ventricular size. Wall thickness is normal. No regional wall motion abnormalities are present. Trace mitral valve regurgitation. The left ventricular systolic function is hyperdynamic with an estimated ejection fraction in the range of 65- 70%. Normal left ventricular size. Wall thickness is normal. No regional wall motion abnormalities are present. Trace mitral valve regurgitation. The estimated pulmonary arterial pressure is 30.6 mmHg. Assessment and Plan - Assessment (1) AML (acute myeloid leukemia) Code(s): C92.00 - Acute myeloblastic leukemia, not having achieved remission Status: Acute - Plan Mr. Hall is a pleasant 27-year-old male who was admitted on 2017 due to generalized weakness. His hemoglobin was 3.3 and platelet 30 on admission. Hematology oncology was consulted for pancytopenia. Patient was eventually diagnosed with AML. Hematology oncology started treatment for AML. Acute myeloid leukemia -Confirmed with bone marrow biopsy on 04/13/2018. -Patient has received induction therapy 7+3 chemotherapy. Currently on Cytarabine. Tolerating chemotherapy well. -Hemoglobin 7.8, WBC 0.1, platelets 29K on 04/23/2018. Neutrophil count essentially zero on 04/22/2018. -Monitor for fever. -Cytogenetics studies are pending. Jaw pain - possibly related to AML/Treatments. CT facial bone pending. Diarrhea -C. difficile PCR pending Neutropenia - On neutropenic precautions. History of seizure -continue seizure precautions. Full code. SCDs, Ambulation. Discussed with oncology team. (1) AML (acute myeloid leukemia) Qualifiers: Leukemia Active/Remission status: without remission Qualified Code(s): C92.00 - Acute myeloblastic leukemia, not having achieved remission
[2018-04-23 10:08] LABS: Lymphocytes 100 % (9-44)
[2018-04-23 10:10] LABS: Ovalocytes 1+; Platelet Morphology Normal (Normal); Tear Drop Cells 1+
--- NOTE | 2018-04-23 10:29 | CT ---
EXAM DATE: 04/23/2018 10:25 AM EDT AGE/SEX: 27 years / Male INDICATIONS: Bilateral lower jaw pain. CLINICAL DATA: This is the patient's initial encounter. Patient reports that signs and symptoms have been present for 3 days and indicates a pain score of 8/10. MEDICAL/SURGICAL HISTORY: Leukemia. . [place] teeth removed. RADIATION DOSE: 57.93 CTDI (mGy) COMPARISON: No prior exams available for comparison. TECHNIQUE: Contiguous images in the axial and coronal planes were obtained using helical multirow de tector technique with 70 ml Omnipaque 350 (iohexol) nonionic water-soluble contrast as a single exam dose. Using automated exposure control and adjustment of the mA and/or kV according to patient size , radiation dose was kept as low as reasonably achievable to obtain optimal diagnostic quality images . DICOM format image data is available electronically for review and comparison. FINDINGS: Orbits: The orbital and infraorbital osseous structures are intact. The retroconal structures have a normal configuration. No radiopaque foreign bodies are seen. Nasal Bone: The nasal bone and maxillary spine are intact. Zygomatic Arches: Symmetric without evidence of fracture. Sinuses: The maxillary, ethmoid and frontal sinuses are intact. No air-fluid levels seen. Nasal Cavity: The nasal septum is intact and midline. The lacrimal ducts are intact. Soft Tissues: No radiopaque foreign bodies seen. No soft-tissue swelling is seen. Intracranial: No intracranial air seen. Cribriform Plate: Grossly intact. Post Contrast: No abnormal areas of enhancement seen. CONCLUSION: 1. No acute fracture. 2. No soft tissue abnormality. Electronically signed by: Zia Rosa MD 04/23/2018 10:27 AM EDT
[2018-04-23] MEDS: Acetaminophen 325 MG Tablet PO PRN ×2 (15:30→19:50)
[2018-04-23] MEDS: Chlorhexidine Gluconate 0.12% Liq 15 ML UDC SWISH-SPIT SCH (21:09)
--- NOTE | 2018-04-23 21:39 | XR ---
EXAM DATE: 04/23/2018 9:33 PM EDT AGE/SEX: 27 years / Male INDICATIONS: Fever. CLINICAL DATA: This is the patient's initial encounter. Patient reports that signs and symptoms have been present for 1 day and indicates a pain score of 0/10. MEDICAL/SURGICAL HISTORY: . Acute Myeloid Leukemia. . Chemo port, right chest. COMPARISON: [facility] [place], CHEST SINGLE AP, 04/12/2018. . FINDINGS: A single AP view of the chest demonstrates the lungs to be symmetrically aerated without evidence of mass, infiltrate or effusion. The cardiomediastinal contours are unremarkable. Osseous structures a re intact. CONCLUSION: Right central line in superior vena cava. No active disease. Electronically signed by: Jean Pierre Stewart MD 04/23/2018 9:37 PM EDT
[2018-04-23 22:21] LABS: Bilirubin,Urine Negative (Negative); Clarity,Urine Clear (Clear); Color,Urine Straw (Yellw/Straw); Glucose,Urine (UA) Negative (Negative); Leukocyte Esterase,Urine Negative (Negative); Nitrite,Urine Negative (Negative); Specific Gravity,Urine 1.002 (1.002-1.035); Squamous Epithelial Cell,Urine <1 /hpf (0-5)
[2018-04-23] MEDS: Temazepam 15 MG Capsule PO PRN (22:40)
[2018-04-24] MEDS: Acetaminophen 325 MG Tablet PO PRN ×5 (02:15→21:42)
[2018-04-24] MEDS: Heparin Central Flush 100 UNIT/ML 5 ML Vial IV.FLUSH PRN ×2 (03:10→06:26)
[2018-04-24 05:26] LABS: Anion Gap 10 meq/L (5-15); Blood Urea Nitrogen 6 mg/dL (7-18); Calcium 8.2 mg/dL (8.5-10.1); Carbon Dioxide 24.9 meq/L (21.0-32.0); Chloride 99 meq/L (98-107); Glomerular Filtration Rate Greater Than 89 mL/min (>89); Glucose,Random 119 mg/dL (74-106); Potassium 4.2 meq/L (3.5-5.1); Sodium 134 meq/L (136-145)
[2018-04-24 05:53] LABS: Hemoglobin 7.1 gm/dL (13.0-17.0); Mean Corpuscular HGB Conc 34.2 % (32.0-36.0); Mean Corpuscular Hemoglobin 28.9 pg (27.0-34.0); Mean Corpuscular Volume 84.4 fL (80.0-100.0); Mean Platelet Volume 8.5 fL (7.0-11.0); Red Blood Count 2.45 mil/mm3 (4.50-5.90); Red Cell Distribution Width 16.2 % (11.6-17.2); White Blood Count 0.1 th/mm3 (4.0-11.0)
[2018-04-24 05:57] LABS: Hematocrit 20.7 % (39.0-51.0); Platelet Count 17 th/mm3 (150-450)
[2018-04-24 07:28] LABS: Lymphocytes 100 % (9-44); Ovalocytes 1+; Platelet Estimate Rare (Normal); Platelet Morphology Normal (Normal)
[2018-04-24] MEDS ORDERED: Sodium Chlor 0.9% Inj 250 ML IV.SIG SCH (08:00)
[2018-04-24] MEDS: Heparin Central Flush 100 UNIT/ML 5 ML Vial IV.FLUSH SCH (08:25)
[2018-04-24] MEDS: Chlorhexidine Gluconate 0.12% Liq 15 ML UDC SWISH-SPIT SCH ×2 (08:26→21:43)
[2018-04-24] MEDS: Nystatin/Diphenhydramine/Lidocaine Mouthwash (Adult) 120 ML Botttle SWISH-SWAL SCH ×4 (08:26→21:43)
--- NOTE | 2018-04-24 08:49 | P.PN ---
Subjective Interval history: Follow up for AML and neutropenic fever. Patient is doing well. He reports no jaw pain anymore but complains of upper lip swelling. No complains of respiratory compromise. T-max 102F. Physical Exam Vital signs: Vital Signs 04/23/18 11:00 04/23/18 11:08 04/23/18 11:09 Temperature 99.2 F Pulse Rate 90 105 H Respiratory Rate 18 18 Blood Pressure 149/85 H Pulse Oximetry 04/23/18 12:00 04/23/18 13:00 04/23/18 15:00 Temperature 99.7 F H 99.6 F Pulse Rate 115 H Respiratory Rate Blood Pressure Pulse Oximetry 04/23/18 15:40 04/23/18 17:29 04/23/18 19:38 Temperature 100.6 F H 101.5 F H Pulse Rate 112 H 111 H Respiratory Rate 18 18 Blood Pressure 141/74 H 144/76 H Pulse Oximetry 100 99 100 04/23/18 20:24 04/23/18 21:12 04/23/18 23:13 Temperature 101.6 F H Pulse Rate 111 H 153 H Respiratory Rate Blood Pressure Pulse Oximetry 04/23/18 23:19 04/23/18 23:21 04/24/18 03:17 Temperature 101.8 F H 102 F H Pulse Rate 100 H 84 122 H Respiratory Rate 18 20 Blood Pressure 149/75 H 138/76 Pulse Oximetry 100 98 04/24/18 03:36 04/24/18 06:25 04/24/18 08:07 Temperature 101.8 F H Pulse Rate 110 H 81 113 H Respiratory Rate Blood Pressure Pulse Oximetry 04/24/18 08:23 Temperature 100.7 F H Pulse Rate 93 H Respiratory Rate 18 Blood Pressure 137/73 Pulse Oximetry 100 Intake & Output 04/23/18 04/24/18 04/24/18 18:59 06:59 18:59 Intake Total 7660 / 7660 2030 / 2030 100 / 100 Output Total 4650 / 4650 3600 / 3600 Balance 3010 / 3010 -1570 / -1570 100 / 100 Weight 106.6 kg Intake: IV 100 / 100 110 / 110 100 / 100 Maxipime Inj 2,000 MG In NS Inj 100 / 100 110 / 110 100 / 100 100 ML @ 200 mls/hr IV.SIG Q8H [facility] Rx#:[id number] Oral 7560 / 7560 1919 / 1919 Output: Urine 4650 / 4650 3600 / 3600 Other: Date of Last Bowel Movement 04/23/18 04/23/18 # Bowel Movements 3 Narrative: GENERAL: Alert, NAD. SKIN: Warm and dry. HEAD: Normocephalic. EYES: No scleral icterus. No injection or drainage. NECK: Supple, trachea midline. No JVD or lymphadenopathy. CARDIOVASCULAR: Regular rate and rhythm without murmurs, gallops, or rubs. RESPIRATORY: Breath sounds equal bilaterally. No accessory muscle use. GASTROINTESTINAL: Abdomen soft, non-tender, nondistended. MUSCULOSKELETAL: No cyanosis, or edema. BACK: Nontender without obvious deformity. No CVA tenderness. Results - Labs CBC & Chem 7: 04/24/18 03:25 04/24/18 03:25 Laboratory Results - last 24 hr 04/23/18 04/23/18 04/23/18 05:30 18:30 21:35 WBC RBC Hgb Hct MCV MCH MCHC RDW Plt Count MPV Prelim Diff (Auto) WBC Differential Manual diff final Seg Neuts % (Manual) Lymphocytes % (Manual) 100 H Abs Neuts (Manual) 0.0 L* Differential Comment Platelet Estimate Low L Platelet Morphology Normal Tear Drop Cells 1+ H Ovalocytes 1+ H Sodium Potassium Chloride Carbon Dioxide Anion Gap BUN Creatinine Estimated GFR Random Glucose Calcium Urine Color Straw Urine Clarity Clear Urine pH 8.0 Ur Specific [place] 1.002 Urine Protein Negative Urine Glucose (UA) Negative Urine Ketones Negative Urine Occult Blood Small H Urine Nitrate Negative Urine Bilirubin Negative Urine Urobilinogen Less than 2 Ur Leukocyte Esterase Negative Urine WBC Less than 1 Ur Squamous Epith Cells <1 Micro UA Comment Culture not ind Urine Culture Comments Culture not ind Stl C.difficile Tox PCR Negative St C. diff Tox Epid 027 Negative MTS Gel Crossmatch Bld Prod Order Comment 04/24/18 04/24/18 04/24/18 03:25 03:25 07:45 WBC 0.1 L RBC 2.45 L Hgb 7.1 L Hct 20.7 L* MCV 84.4 MCH 28.9 MCHC 34.2 RDW 16.2 Plt Count 17 L* D MPV 8.5 Prelim Diff (Auto) Slide review pending WBC Differential Manual diff final Seg Neuts % (Manual) 0 L Lymphocytes % (Manual) 100 H Abs Neuts (Manual) 0.0 L* Differential Comment . Platelet Estimate Rare L Platelet Morphology Normal Tear Drop Cells Ovalocytes 1+ H Sodium 134 L Potassium 4.2 Chloride 99 Carbon Dioxide 24.9 Anion Gap 10 BUN 6 L Creatinine 0.72 Estimated GFR Greater than 89 Random Glucose 119 H Calcium 8.2 L Urine Color Urine Clarity Urine pH Ur Specific [place] Urine Protein Urine Glucose (UA) Urine Ketones Urine Occult Blood Urine Nitrate Urine Bilirubin Urine Urobilinogen Ur Leukocyte Esterase Urine WBC Ur Squamous Epith Cells Micro UA Comment Urine Culture Comments Stl C.difficile Tox PCR St C. diff Tox Epid 027 MTS Gel Crossmatch See Detail Bld Prod Order Comment - Imaging Impressions Face CT 04/23/18 00:00 CONCLUSION: 1. No acute fracture. 2. No soft tissue abnormality. Chest X-Ray 04/23/18 21:13 CONCLUSION: Right central line in superior vena cava. No active disease. - Procedures BM biopsy Leal catheter placement Echo 04/14/2018 The left ventricular systolic function is hyperdynamic with an estimated ejection fraction in the range of 65- 70%. Normal left ventricular size. Wall thickness is normal. No regional wall motion abnormalities are present. Trace mitral valve regurgitation. The left ventricular systolic function is hyperdynamic with an estimated ejection fraction in the range of 65- 70%. Normal left ventricular size. Wall thickness is normal. No regional wall motion abnormalities are present. Trace mitral valve regurgitation. The estimated pulmonary arterial pressure is 30.6 mmHg. Assessment and Plan - Assessment (1) AML (acute myeloid leukemia) Code(s): C92.00 - Acute myeloblastic leukemia, not having achieved remission Status: Acute - Plan Mr. Hall is a pleasant 27-year-old male who was admitted on 2017 due to generalized weakness. His hemoglobin was 3.3 and platelet 30 on admission. Hematology oncology was consulted for pancytopenia. Patient was eventually diagnosed with AML. Hematology oncology started treatment for AML. Acute myeloid leukemia -Confirmed with bone marrow biopsy on 04/13/2018. -Patient has received induction therapy 7+3 chemotherapy. Currently on Cytarabine. Tolerating chemotherapy well. -Hemoglobin 7.1, WBC 0.1, platelets 17K on 04/23/2018. Neutrophil count essentially zero on 04/22/2018. Neutropenic fever -Urinalysis, chest x-ray unremarkable. Continue cefepime 2 g every 8 hours. Jaw pain -CT scan shows no evidence of any necrosis or other pathology. Diarrhea -C. difficile PCR negative. History of seizure -continue seizure precautions. Full code. SCDs, Ambulation. (1) AML (acute myeloid leukemia) Qualifiers: Leukemia Active/Remission status: without remission Qualified Code(s): C92.00 - Acute myeloblastic leukemia, not having achieved remission
--- NOTE | 2018-04-24 10:39 | P.PNONC ---
Subjective Interval history: Febrile overnight, T-max 102. Patient reports that he is feeling much better. He was able to sleep last night , after receiving Restoril. His jaw pain has resolved, however he does still have swollen gums and some discomfort there. He continues the Magic mouthwash, with relief. He still reports diarrhea "every few hours", denies abdominal pain. Objective Vital Signs/Intake & Output: Vital Signs 04/23/18 11:00 04/23/18 11:08 04/23/18 11:09 Temperature 99.2 F Pulse Rate 90 105 H Respiratory Rate 18 18 Blood Pressure 149/85 H Pulse Oximetry 04/23/18 12:00 04/23/18 13:00 04/23/18 15:00 Temperature 99.7 F H 99.6 F Pulse Rate 115 H Respiratory Rate Blood Pressure Pulse Oximetry 04/23/18 15:40 04/23/18 17:29 04/23/18 19:38 Temperature 100.6 F H 101.5 F H Pulse Rate 112 H 111 H Respiratory Rate 18 18 Blood Pressure 141/74 H 144/76 H Pulse Oximetry 100 99 100 04/23/18 20:24 04/23/18 21:12 04/23/18 23:13 Temperature 101.6 F H Pulse Rate 111 H 153 H Respiratory Rate Blood Pressure Pulse Oximetry 04/23/18 23:19 04/23/18 23:21 04/24/18 03:17 Temperature 101.8 F H 102 F H Pulse Rate 100 H 84 122 H Respiratory Rate 18 20 Blood Pressure 149/75 H 138/76 Pulse Oximetry 100 98 04/24/18 03:36 04/24/18 06:25 04/24/18 08:07 Temperature 101.8 F H Pulse Rate 110 H 81 113 H Respiratory Rate Blood Pressure Pulse Oximetry 04/24/18 08:23 04/24/18 09:24 04/24/18 09:37 Temperature 100.7 F H 100.1 F H 99.2 F Pulse Rate 93 H 104 H 93 H Respiratory Rate 18 20 18 Blood Pressure 137/73 148/82 H 140/82 Pulse Oximetry 100 99 04/24/18 09:46 04/24/18 10:22 Temperature 99.3 F 99.1 F Pulse Rate 89 105 H Respiratory Rate 18 Blood Pressure 144/79 H 147/75 H Pulse Oximetry 98 100 Intake & Output 04/23/18 04/24/18 04/24/18 18:59 06:59 18:59 Intake Total 7660 / 7660 2029 / 2029 100 / 100 Output Total 4650 / 4650 3600 / 3600 Balance 3010 / 3010 -1570 / -1570 100 / 100 Weight 106.6 kg Intake: IV 100 / 100 110 / 110 100 / 100 Maxipime Inj 2,000 MG In NS Inj 100 / 100 110 / 110 100 / 100 100 ML @ 200 mls/hr IV.SIG Q8H [facility] Rx#:[id number] Oral 7560 / 7560 1920 / 1920 Intake (Blood Product) Amt 0 / 0 Plt Pheresis A Lr/Irr Unit 0 / 0 [id number] Rbc As-3 Leukoreduced Irrad 0 / 0 Unit [id number] Output: Urine 4650 / 4650 3600 / 3600 Other: Date of Last Bowel Movement 04/23/18 04/23/18 04/24/18 # Bowel Movements 3 Result Diagrams: 04/24/18 03:25 04/24/18 03:25 Laboratory Results: Laboratory Results - last 24 hr 04/22/18 04/23/18 04/23/18 05:20 18:30 21:35 WBC RBC Hgb Hct MCV MCH MCHC RDW Plt Count MPV Prelim Diff (Auto) WBC Differential Seg Neuts % (Manual) Lymphocytes % (Manual) Abs Neuts (Manual) Differential Comment Platelet Estimate Platelet Morphology Ovalocytes Sodium Potassium Chloride Carbon Dioxide Anion Gap BUN Creatinine Estimated GFR Random Glucose Calcium Urine Color Straw Urine Clarity Clear Urine pH 8.0 Ur Specific [place] 1.002 Urine Protein Negative Urine Glucose (UA) Negative Urine Ketones Negative Urine Occult Blood Small H Urine Nitrate Negative Urine Bilirubin Negative Urine Urobilinogen Less than 2 Ur Leukocyte Esterase Negative Urine WBC Less than 1 Ur Squamous Epith Cells <1 Micro UA Comment Culture not ind Urine Culture Comments Culture not ind Stl C.difficile Tox PCR Negative St C. diff Tox Epid 027 Negative Blood Type O Positive Blood Type Recheck Not needed Antibody Screen Negative MTS Gel Crossmatch See Detail Bld Prod Order Comment ND 04/24/18 04/24/18 04/24/18 03:25 03:25 07:45 WBC 0.1 L RBC 2.45 L Hgb 7.1 L Hct 20.7 L* MCV 84.4 MCH 28.9 MCHC 34.2 RDW 16.2 Plt Count 17 L* D MPV 8.5 Prelim Diff (Auto) Slide review pending WBC Differential Manual diff final Seg Neuts % (Manual) 0 L Lymphocytes % (Manual) 100 H Abs Neuts (Manual) 0.0 L* Differential Comment . Platelet Estimate Rare L Platelet Morphology Normal Ovalocytes 1+ H Sodium 134 L Potassium 4.2 Chloride 99 Carbon Dioxide 24.9 Anion Gap 10 BUN 6 L Creatinine 0.72 Estimated GFR Greater than 89 Random Glucose 119 H Calcium 8.2 L Urine Color Urine Clarity Urine pH Ur Specific [place] Urine Protein Urine Glucose (UA) Urine Ketones Urine Occult Blood Urine Nitrate Urine Bilirubin Urine Urobilinogen Ur Leukocyte Esterase Urine WBC Ur Squamous Epith Cells Micro UA Comment Urine Culture Comments Stl C.difficile Tox PCR St C. diff Tox Epid 027 Blood Type Blood Type Recheck Antibody Screen MTS Gel Crossmatch See Detail Bld Prod Order Comment Imaging Studies: Impressions Face CT 04/23/18 00:00 CONCLUSION: 1. No acute fracture. 2. No soft tissue abnormality. Chest X-Ray 04/23/18 21:13 CONCLUSION: Right central line in superior vena cava. No active disease. Medications: Active Medications Generic Name Dose Route Start Last Admin Trade Name Freq PRN Reason Stop Dose Admin Acetaminophen 650 mg 04/16/18 00:00 04/24/18 06:27 Tylenol PO 650 mg Q4H PRN Administration TEMPERATURE > 100 F Acetaminophen 650 mg 04/24/18 09:00 04/24/18 08:45 Tylenol PO 650 mg Q4H PRN Administration SEE LABEL COMMENTS Chlorhexidine Gluconate 15 ml 04/23/18 21:00 04/24/18 08:26 Peridex 0.12% Liq SWISH-SPIT 15 ml BID [facility] Administration Diphenhydramine HCl 25 mg 04/16/18 00:00 04/24/18 08:43 Benadryl PO 25 mg Q4H PRN Administration SEE LABEL COMMENTS Heparin Sodium (Porcine) 0 unit 04/16/18 00:00 04/24/18 06:26 Heparin Central Flush IV.FLUSH 500 unit PRN PRN Administration Flush each lumen Heparin Sodium (Porcine) 0 unit 04/16/18 09:00 04/24/18 08:25 Heparin Central Flush IV.FLUSH 500 unit DAILY [facility] Administration Cefepime HCl 2,000 mg/ Sodium 100 mls @ 200 mls/hr 04/23/18 13:00 04/24/18 07 :05 Chloride IV.SIG Infused Q8H [facility] Infusion Lidocaine HCl 15 ml 04/23/18 10:00 04/23/18 10:21 Xylocaine 2% Viscous SWISH-SPIT 15 ml Q4H PRN Administration PAIN SCALE 6 TO 10 Miscellaneous Information 1 each 04/16/18 00:00 04/16/18 13:22 [facility] [place] Not Given [id number] [facility] Morphine Sulfate 2 mg 04/16/18 00:00 04/23/18 12:56 Morphine Inj IV.PUSH 2 mg Q2H PRN Administration PAIN SCALE 6 TO 10 Multi-Ingredient Mouthwash/Gargle 5 ml 04/22/18 13:00 04/24/18 08:26 Magic Mouthwash Adult Liq SWISH-SWAL 5 ml QID [facility] Administration Ondansetron HCl 4 mg 04/16/18 00:00 04/23/18 10:26 Zofran Inj IV.PUSH 4 mg Q6H PRN Administration NAUSEA OR VOMITING Pantoprazole Sodium 40 mg 04/16/18 09:00 04/24/18 08:26 Protonix PO 40 mg DAILY [facility] Administration Sodium Chloride 0 ml 04/16/18 09:00 04/24/18 08:26 Ns Flush IV.FLUSH 10 ml DAILY [facility] Administration Sodium Chloride 0 ml 04/16/18 00:00 04/24/18 06:26 Ns Flush IV.FLUSH 10 ml PRN PRN Administration FLUSH AFTER USING IV ACCESS Temazepam 15 mg 04/23/18 21:00 04/23/18 22:40 Restoril PO 15 mg HS PRN Administration INSOMNIA Objective Remarks: GENERAL: Well-nourished, well-developed young male patient, sitting upright in bed. SKIN: Warm and dry. Leal catheter to right chest wall, dressing dry/intact. HEAD: Normocephalic. EYES: No scleral icterus. No injection or drainage. MOUTH: [place] moist mucous membranes. No thrush. Gums inflamed/swollen, plaque buildup at gum lines. Posterior bilateral ulcerations. NECK: Supple, trachea midline. CARDIOVASCULAR: +S1/S2. Regular rate and rhythm without murmurs. RESPIRATORY: Posterior breath sounds clear & equal bilaterally. No accessory muscle use. GASTROINTESTINAL: Abdomen soft, non-tender, nondistended. EXTREMITIES: No cyanosis, or edema. MUSCULOSKELETAL: Adequate muscle tone. NEUROLOGICAL: No obvious focal deficit. Awake, alert, and oriented x3. PSYCHIATRIC: Appropriate mood and affect; insight and judgment normal. Assessment/Plan (1) Pancytopenia due to antineoplastic chemotherapy Code(s): D61.810 - Antineoplastic chemotherapy induced pancytopenia; T45.1X5A - Adverse effect of antineoplastic and immunosuppressive drugs, initial encounter Status: Acute (2) AML (acute myeloid leukemia) Code(s): C92.00 - Acute myeloblastic leukemia, not having achieved remission Status: Acute - Plan 04/15 D1 Daunorubicin + Cytarabine 04/16: D2 Daunorubicin + Cytarabine 7: D3 Daunorubicin + Cytarabine 04/18: D4 Cytarabine. Afebrile. Tolerating chemo well. 04/19: D5 Cytarabine continue 04/20: D6 Cytarabine continues. 04/21: D7 Cytarabine continues. Afebrile, tolerating well. 04/22: D8 cytarabine. Afebrile, platelet transfusion this a.m. Now with jaw pain. 04/23: D9 Cytarabine completed overnight. Afebrile. Continued jaw pain. Diarrhea 3 x's/day, +n/v x's 1, + insomnia. 04/24: D10 febrile, T-max 102. Blood cultures pending. Currently on cefepime. ID and ENT consult. 1. Neutropenic fever. Blood cultures are pending. Patient currently on cefepime. Infectious disease has been consulted. 2. Neutropenic precautions. 3. Continue to monitor for fevers, notify provider and obtain blood cultures per policy. 4. Anemia and thrombocytopenia. Transfuse for hgb <7.0 and platelet <15K or symptoms. We will transfuse 1 unit of irradiated packed red blood cells and 1 unit of platelets today. We will recheck CBC tomorrow. 5. Lower jaw pain, now resolved. CT facial bones was negative for acute process. 6. Swollen gums, continues. Continue viscous lidocaine swish and spit as needed for pain. Continue chlorhexidine antibacterial rinse. We have consulted ENT. 6. Gatorade added to dietary regimen for electrolyte supplementation. Will continue to monitor electrolytes. 7. Continue Restoril as needed for insomnia. 8. C. difficile culture negative. - Attending Statement The exam, history, and the medical decision-making described in the above note were completed with the assistance of the mid-level provider. I reviewed and agree with the findings presented. I attest that I had a [id number] encounter with the patient on the same day, and personally performed and documented my assessment and findings in the medical record. Patient seen and examined in the a.m. He denies any other localizing symptoms. His jaw pain has improved. Examination shows severe hypertrophy plaque and gum disease. We discussed a trial of biotin rinses. Magic mouthwash continue for symptom management. ENT is consulted. Antibiotic therapy continue. Discussed adding vancomycin for gram-positive coverage. His double-lumen Leal catheter site looks clear. He denies any urinary complaints. His diarrhea is controlled. Supportive transfusions continue. Bone marrow biopsy at day 14 will be scheduled. (2) AML (acute myeloid leukemia) Qualifiers: Leukemia Active/Remission status: without remission Qualified Code(s): C92.00 - Acute myeloblastic leukemia, not having achieved remission
--- NOTE | 2018-04-24 17:57 | MB ---
cc: Benton Elmore MD DATE: 04/24/2018 REQUESTING PHYSICIAN: Dr. Tam REASON: Neutropenic fever. HISTORY OF PRESENT ILLNESS: This is a 27-year-old white male who was just recently diagnosed with acute myelogenous leukemia. The patient has undergone chemotherapy with daunorubicin plus cytarabine. The patient was doing well and was afebrile. However, he started to spike fevers with temperature rising to 101.5 degrees yesterday and he remained febrile throughout most of the evening and the temperature came down early today, but then started spiking again and currently temperature is 101.4 degrees. His white blood cell count has significantly decreased. Today's white count is 0.1. White count was 0.3 on 04/21/2018 and 1.4 on 04/18/2018. Blood cultures have been negative from 04/23/2018. The patient also has a low platelet count. He denies all symptoms complaints except for pain in the mouth. He has been on antibiotics in the form of cefepime. He complained of pain in the mouth and swollen lip. A CT scan of the face was performed and it showed no acute fracture, no soft tissue abnormality. All the sinuses were noted to be intact; there were no air-fluid levels seen. Chest x-ray on 04/23/2018 showed no active disease. The patient had undergone placement of a Leal catheter prior to the chemotherapy. PAST MEDICAL HISTORY: Unremarkable. ALLERGIES: NO KNOWN DRUG ALLERGIES. MEDICATIONS: 1. Cefepime. 2. Tylenol. 3. [place] 7.5. 4. Morphine sulfate as needed. 5. Protonix. 6. Restoril. SOCIAL HISTORY: The patient smoked a pack of cigarettes a day. Denies alcohol use. Denies illicit drugs. FAMILY HISTORY: Noncontributory. The patient reports 1 grandmother had cancer, type unknown to the patient. PHYSICAL EXAMINATION: GENERAL: This is a moderately obese male who is in no acute distress. He is awake and alert and oriented. VITAL SIGNS: Temperature 101.4, BP 143/84, respirations 18, heart rate 104. HEENT: The head is atraumatic and normocephalic. Extraocular muscles are intact. Pupils reactive to light. No icterus. No conjunctival erythema. Nose: No drainage. Oropharynx: Erosive changes at the base of the teeth anteriorly with ulcerations at the inner gumline. NECK: Supple without adenopathy. LUNGS: Clear breath sounds bilaterally. HEART: Regular S1 and S2. No murmurs. No rubs. No gallops. ABDOMEN: Bowel sounds present, obese, soft. No tenderness appreciated. RECTAL: Not performed. EXTREMITIES: No clubbing, cyanosis or edema. SKIN: No rash. NEUROLOGIC: Cranial nerves II-XII intact. PSYCHIATRIC: The patient with flat affect. Cooperative. LABORATORY DATA: WBC 0.1, platelets 17, Hemoglobin 7.1. Creatinine 0.72, BUN 6, estimated GFR greater than 89. LFTs normal. IMPRESSION: 1. Neutropenic fever in patient with acute myeloid leukemia. 2. Acute myeloid leukemia. 3. Gingivitis. RECOMMENDATIONS: 1. Continue cefepime. 2. Begin vancomycin. 3. Add acyclovir for possible viral associated gingivitis. 4. Monitor cultures. 5. Monitor for signs of a foci of infection. Thank you for this consultation. The patient's progress will be followed and further recommendations will be given upon followup if necessary. MD SANTANA Cisneros/ELIZABETH , 05:04 PM , 05:55 PM
[2018-04-24] MEDS ORDERED: Vancomycin Consult Pharmacy 1 EACH OTHER SCH (18:00)
[2018-04-24] MEDS: Acyclovir 200 MG Capsule PO SCH (21:44)
[2018-04-24] MEDS: Vancomycin Inj 1,500 MG in Sodium Chlor 0.9% Inj 500 ML IV.SIG SCH (22:26)
[2018-04-25] MEDS: Heparin Central Flush 100 UNIT/ML 5 ML Vial IV.FLUSH PRN ×2 (02:01→05:38)
[2018-04-25] MEDS: Acetaminophen 325 MG Tablet PO PRN (05:02)
[2018-04-25] MEDS: Acyclovir 200 MG Capsule PO SCH ×3 (05:06→22:03)
[2018-04-25 05:44] LABS: Hematocrit 21.1 % (39.0-51.0); Hemoglobin 7.4 gm/dL (13.0-17.0); Mean Corpuscular HGB Conc 35.1 % (32.0-36.0); Mean Corpuscular Hemoglobin 29.2 pg (27.0-34.0); Mean Corpuscular Volume 83.3 fL (80.0-100.0); Mean Platelet Volume 7.7 fL (7.0-11.0); Red Blood Count 2.53 mil/mm3 (4.50-5.90); Red Cell Distribution Width 15.5 % (11.6-17.2); White Blood Count 0.1 th/mm3 (4.0-11.0)
[2018-04-25 06:04] LABS: Platelet Count 18 th/mm3 (150-450)
--- NOTE | 2018-04-25 06:47 | P.CON ---
History of Present Illness Service: ENT Consult date: 04/25/18 Primary Care Provider: No Primary Care Physician History of Present Illness: ENT consulted for dental problem, gingivitis with gum pain and swelling post chemo. Receiving Magic Mouthwash. Medications and Allergies Active Medications: Active Medications Acetaminophen (Tylenol) 650 mg PO Q4H PRN PRN Reason: TEMPERATURE > 100 F Last Admin: 04/25/18 05:02 Dose: 650 mg Acetaminophen (Tylenol) 650 mg PO Q4H PRN PRN Reason: SEE LABEL COMMENTS Last Admin: 04/24/18 08:45 Dose: 650 mg Hydrocodone Bitart/Acetaminophen ([place] 7.5/325) 1 tab PO Q6H PRN PRN Reason: PAIN SCALE 6 TO 10 Acyclovir (Zovirax) 400 mg PO Q8HR GILMA Last Admin: 04/25/18 05:06 Dose: 400 mg Albuterol (Duoneb Neb (Prn)) 1 ampul INH Q2HR NEB PRN PRN Reason: WHEEZING Chlorhexidine Gluconate (Peridex 0.12% Liq) 15 ml SWISH-SPIT BID GILMA Last Admin: 04/24/18 21:43 Dose: 15 ml Diphenhydramine HCl (Benadryl) 25 mg PO Q4H PRN PRN Reason: SEE LABEL COMMENTS Last Admin: 04/24/18 08:43 Dose: 25 mg Diphenhydramine HCl (Benadryl) 25 mg PO Q4H PRN PRN Reason: SEE LABEL COMMENTS Heparin Sodium (Porcine) (Heparin Central Flush) 0 unit IV.FLUSH PRN PRN PRN Reason: Flush each lumen Last Admin: 04/25/18 05:38 Dose: 200 unit Heparin Sodium (Porcine) (Heparin Central Flush) 0 unit IV.FLUSH DAILY [facility] Last Admin: 04/24/18 08:25 Dose: 500 unit Cefepime HCl 2,000 mg/ Sodium (Chloride) 100 mls @ 200 mls/hr IV.SIG Q8H [facility] Last Infusion: 04/25/18 05:40 Dose: 200 mls/hr Pharmacy Profile Note (Vancomycin Consult Pharmacy) 0 mls @ 0 mls/hr OTHER UNSCH [facility] Vancomycin HCl 1,500 mg/ (Sodium Chloride) 515 mls @ 250 mls/hr IV.SIG Q12HR [facility] Last Infusion: 04/25/18 02:00 Dose: Infused Lidocaine HCl (Xylocaine 2% Viscous) 15 ml SWISH-SPIT Q4H PRN PRN Reason: PAIN SCALE 6 TO 10 Last Admin: 04/23/18 10:21 Dose: 15 ml Miscellaneous Information ([facility]) 1 each OTHER Q361D [facility] Last Admin: 04/16/18 13:22 Dose: Not Given Miscellaneous Information ([facility] Ordered Lab Info) 0 each OTHER ONCE ONE Stop: 04/26/18 08:46 Morphine Sulfate (Morphine Inj) 2 mg IV.PUSH Q2H PRN PRN Reason: PAIN SCALE 6 TO 10 Last Admin: 04/23/18 12:56 Dose: 2 mg Multi-Ingredient Mouthwash/Gargle (Magic Mouthwash Adult Liq) 5 ml SWISH-SWAL QID [facility] Last Admin: 04/24/18 21:43 Dose: 5 ml Ondansetron HCl (Zofran Inj) 4 mg IV.PUSH Q6H PRN PRN Reason: NAUSEA OR VOMITING Last Admin: 04/23/18 10:26 Dose: 4 mg Pantoprazole Sodium (Protonix) 40 mg PO DAILY [facility] Last Admin: 04/24/18 08:26 Dose: 40 mg Sodium Chloride (Ns Flush) 0 ml IV.FLUSH DAILY [facility] Last Admin: 04/24/18 08:26 Dose: 10 ml Sodium Chloride (Ns Flush) 0 ml IV.FLUSH PRN PRN PRN Reason: FLUSH AFTER USING IV ACCESS Last Admin: 04/25/18 05:39 Dose: 10 ml Temazepam (Restoril) 15 mg PO HS PRN PRN Reason: INSOMNIA Last Admin: 04/23/18 22:40 Dose: 15 mg Allergies Allergy/AdvReac Type Severity Reaction Status Date / Time No Known Allergies Allergy Unknown Uncoded 04/12/18 14:54 Home Medications Medication Instructions Recorded Confirmed Type No Known Home Medications 04/16/18 04/16/18 History Physical Exam Vital signs: Vital Signs 04/24/18 08:07 04/24/18 08:23 04/24/18 09:24 Temperature 100.7 F H 100.1 F H Pulse Rate 113 H 93 H 104 H Respiratory Rate 18 20 Blood Pressure 137/73 148/82 H Pulse Oximetry 100 04/24/18 09:37 04/24/18 09:46 04/24/18 10:22 Temperature 99.2 F 99.3 F 99.1 F Pulse Rate 93 H 89 105 H Respiratory Rate 18 18 Blood Pressure 140/82 144/79 H 147/75 H Pulse Oximetry 99 98 100 04/24/18 10:39 04/24/18 12:00 04/24/18 14:44 Temperature 99.1 F 101.1 F H Pulse Rate 90 91 H 111 H Respiratory Rate 15 18 Blood Pressure 140/77 144/77 H Pulse Oximetry 99 04/24/18 15:48 04/24/18 16:00 04/24/18 19:59 Temperature 101.4 F H Pulse Rate 104 H 91 H 91 H Respiratory Rate 18 Blood Pressure 143/84 H Pulse Oximetry 98 04/24/18 20:55 04/25/18 00:00 04/25/18 04:20 Temperature 102 F H 101.1 F H 102.5 F H Pulse Rate 108 H 129 H 91 H Respiratory Rate 16 16 Blood Pressure 143/76 H 133/82 138/71 Pulse Oximetry 99 98 99 04/25/18 05:00 Temperature Pulse Rate 97 H Respiratory Rate Blood Pressure Pulse Oximetry Intake & Output 04/24/18 04/24/18 04/25/18 06:59 18:59 06:59 Intake Total 2029 / 2029 2478 / 2478 1735 / 1735 Output Total 3600 / 3600 1200 / 1200 3700 / 3700 Balance -1570 / -1570 1278 / 1278 -1965 / -1965 Weight 106.6 kg Intake: IV 110 / 110 200 / 200 615 / 615 Maxipime Inj 2,000 MG In NS Inj 110 / 110 200 / 200 100 / 100 100 ML @ 200 mls/hr IV.SIG Q8H [facility] Rx#:[id number] Vancomycin Inj 1,500 MG In NS 515 / 515 Inj 500 ML @ 250 mls/hr IV.SIG Q12HR [facility] Rx#:[id number] Oral 1920 / 1920 1600 / 1600 1120 / 1120 Intake (Blood Product) Amt 678 / 678 Plt Pheresis A Lr/Irr Unit 278 / 278 [id number] Rbc As-3 Leukoreduced Irrad 400 / 400 Unit [id number] Output: Urine 3600 / 3600 1200 / 1200 3700 / 3700 Other: Date of Last Bowel Movement 04/23/18 04/24/18 04/24/18 # Bowel Movements 3 3 3 Assessment and Plan - Plan ENT called for gingivitis. This is not in our scope of care. Recommend and Oral Surgery evaluation.
[2018-04-25 07:24] LABS: Lymphocytes 100 % (9-44)
[2018-04-25 07:28] LABS: Platelet Estimate Rare (Normal); Platelet Morphology Normal (Normal)
[2018-04-25] MEDS: Vancomycin Inj 1,500 MG in Sodium Chlor 0.9% Inj 500 ML IV.SIG SCH ×2 (09:09→22:03)
[2018-04-25] MEDS: Chlorhexidine Gluconate 0.12% Liq 15 ML UDC SWISH-SPIT SCH ×2 (09:10→20:50)
[2018-04-25] MEDS: Nystatin/Diphenhydramine/Lidocaine Mouthwash (Adult) 120 ML Botttle SWISH-SWAL SCH ×4 (09:10→20:50)
[2018-04-25] MEDS: Heparin Central Flush 100 UNIT/ML 5 ML Vial IV.FLUSH SCH (09:10)
--- NOTE | 2018-04-25 11:44 | P.PNONC ---
Subjective Interval history: Febrile, T-max 102.5F, patient sleeping on approach. Wakes easily. Denies any nausea or vomiting. Reports diarrhea is "about the same". Mouth pain has subsided, he reports he feels his gums are less swollen. Objective Vital Signs/Intake & Output: Vital Signs 04/24/18 12:00 04/24/18 14:44 04/24/18 15:48 Temperature 101.1 F H 101.4 F H Pulse Rate 91 H 111 H 104 H Respiratory Rate 18 18 Blood Pressure 144/77 H 143/84 H Pulse Oximetry 99 98 04/24/18 16:00 04/24/18 19:59 04/24/18 20:55 Temperature 102 F H Pulse Rate 91 H 91 H 108 H Respiratory Rate Blood Pressure 143/76 H Pulse Oximetry 99 04/25/18 00:00 04/25/18 04:20 04/25/18 05:00 Temperature 101.1 F H 102.5 F H Pulse Rate 129 H 91 H 97 H Respiratory Rate 16 16 Blood Pressure 133/82 138/71 Pulse Oximetry 98 99 04/25/18 08:00 Temperature 99.6 F Pulse Rate 100 H Respiratory Rate 16 Blood Pressure 134/65 Pulse Oximetry 98 Intake & Output 04/24/18 04/25/18 04/25/18 18:59 06:59 18:59 Intake Total 2478 / 2478 1835 / 1835 Output Total 1200 / 1200 3700 / 3700 Balance 1278 / 1278 -1865 / -1865 Weight 106.2 kg Intake: IV 200 / 200 715 / 715 Maxipime Inj 2,000 MG In NS Inj 200 / 200 200 / 200 100 ML @ 200 mls/hr IV.SIG Q8H [facility] Rx#:[id number] Vancomycin Inj 1,500 MG In NS 515 / 515 Inj 500 ML @ 250 mls/hr IV.SIG Q12HR [facility] Rx#:[id number] Oral 1600 / 1600 1120 / 1120 Intake (Blood Product) Amt 678 / 678 Plt Pheresis A Lr/Irr Unit 278 / 278 [id number] Rbc As-3 Leukoreduced Irrad 400 / 400 Unit [id number] Output: Urine 1200 / 1200 3700 / 3700 Other: Date of Last Bowel Movement 04/24/18 04/24/18 04/24/18 # Bowel Movements 3 3 Result Diagrams: 04/25/18 05:00 04/24/18 03:25 Laboratory Results: Laboratory Results - last 24 hr 04/22/18 04/24/18 04/25/18 05:20 07:45 05:00 WBC 0.1 L RBC 2.53 L Hgb 7.4 L Hct 21.1 L MCV 83.3 MCH 29.2 MCHC 35.1 RDW 15.5 Plt Count 18 L* MPV 7.7 Prelim Diff (Auto) Manual diff required WBC Differential Manual diff final Seg Neuts % (Manual) 0 L Lymphocytes % (Manual) 100 H Abs Neuts (Manual) 0.0 L* Differential Comment . Platelet Estimate Rare L Platelet Morphology Normal MTS Gel Crossmatch See Detail See Detail Culture Results: Microbiology 04/23/18 21:45 Aerobic Blood Culture - Preliminary Blood - Peripheral No growth in 2 days Anaerobic Blood Culture - Preliminary No growth in 2 days 04/23/18 21:50 Aerobic Blood Culture - Preliminary Blood - Line No growth in 2 days Anaerobic Blood Culture - Preliminary No growth in 2 days 04/23/18 14:27 Aerobic Blood Culture - Preliminary Blood - Peripheral No growth in 2 days Anaerobic Blood Culture - Preliminary No growth in 2 days 04/23/18 11:50 Aerobic Blood Culture - Preliminary Blood - Line No growth in 2 days Anaerobic Blood Culture - Preliminary No growth in 2 days Medications: Active Medications Generic Name Dose Route Start Last Admin Trade Name Freq PRN Reason Stop Dose Admin Acetaminophen 650 mg 04/16/18 00:00 04/25/18 05:02 Tylenol PO 650 mg Q4H PRN Administration TEMPERATURE > 100 F Acetaminophen 650 mg 04/24/18 09:00 04/24/18 08:45 Tylenol PO 650 mg Q4H PRN Administration SEE LABEL COMMENTS Acyclovir 400 mg 04/24/18 22:00 04/25/18 05:06 Zovirax PO 400 mg Q8HR GILMA Administration Chlorhexidine Gluconate 15 ml 04/23/18 21:00 04/25/18 09:10 Peridex 0.12% Liq SWISH-SPIT 15 ml BID GILMA Administration Diphenhydramine HCl 25 mg 04/16/18 00:00 04/24/18 08:43 Benadryl PO 25 mg Q4H PRN Administration SEE LABEL COMMENTS Heparin Sodium (Porcine) 0 unit 04/16/18 00:00 04/25/18 05:38 Heparin Central Flush IV.FLUSH 200 unit PRN PRN Administration Flush each lumen Heparin Sodium (Porcine) 0 unit 04/16/18 09:00 04/25/18 09:10 Heparin Central Flush IV.FLUSH Not Given DAILY [facility]ILMA Cefepime HCl 2,000 mg/ Sodium 100 mls @ 200 mls/hr 04/23/18 13:00 04/25/18 06 :30 Chloride IV.SIG Infused Q8H [facility]MA Infusion Vancomycin HCl 1,500 mg/ 515 mls @ 250 mls/hr 04/24/18 21:00 04/25/18 09:09 Sodium Chloride IV.SIG 250 mls/hr Q12HR GILMA Administration Lidocaine HCl 15 ml 04/23/18 10:00 04/23/18 10:21 Xylocaine 2% Viscous SWISH-SPIT 15 ml Q4H PRN Administration PAIN SCALE 6 TO 10 Miscellaneous Information 1 each 04/16/18 00:00 04/16/18 13:22 [facility] Nursing Information OTHER Not Given Q361D GILMA Morphine Sulfate 2 mg 04/16/18 00:00 04/23/18 12:56 Morphine Inj IV.PUSH 2 mg Q2H PRN Administration PAIN SCALE 6 TO 10 Multi-Ingredient Mouthwash/Gargle 5 ml 04/22/18 13:00 04/25/18 09:10 Magic Mouthwash Adult Liq SWISH-SWAL 5 ml QID [facility]ILMA Administration Ondansetron HCl 4 mg 04/16/18 00:00 04/23/18 10:26 Zofran Inj IV.PUSH 4 mg Q6H PRN Administration NAUSEA OR VOMITING Pantoprazole Sodium 40 mg 04/16/18 09:00 04/25/18 09:11 Protonix PO 40 mg DAILY [facility]ILMA Administration Sodium Chloride 0 ml 04/16/18 09:00 04/25/18 09:10 Ns Flush IV.FLUSH Not Given DAILY [facility]ILMA Sodium Chloride 0 ml 04/16/18 00:00 04/25/18 05:39 Ns Flush IV.FLUSH 10 ml PRN PRN Administration FLUSH AFTER USING IV ACCESS Temazepam 15 mg 04/23/18 21:00 04/23/18 22:40 Restoril PO 15 mg HS PRN Administration INSOMNIA Objective Remarks: GENERAL: Well-nourished, well-developed young male patient, sleeping on approach. SKIN: Flushed warm and dry. Leal catheter to right chest wall, dressing dry/ intact, no redness. HEAD: Normocephalic. EYES: No scleral icterus. No injection or drainage. MOUTH: [place] moist mucous membranes. No thrush. Gums inflamed/swollen, plaque buildup at gum lines. NECK: Supple, trachea midline. CARDIOVASCULAR: +S1/S2. Regular rate and rhythm without murmurs. RESPIRATORY: Anterior breath sounds clear & equal bilaterally. No accessory muscle use. GASTROINTESTINAL: Abdomen soft, non-tender, nondistended. EXTREMITIES: No cyanosis, or edema. MUSCULOSKELETAL: Adequate muscle tone. NEUROLOGICAL: No obvious focal deficit. Awake, alert, and oriented x3. PSYCHIATRIC: Appropriate mood and affect; insight and judgment normal. Assessment/Plan (1) Pancytopenia due to antineoplastic chemotherapy Code(s): D61.810 - Antineoplastic chemotherapy induced pancytopenia; T45.1X5A - Adverse effect of antineoplastic and immunosuppressive drugs, initial encounter Status: Acute (2) AML (acute myeloid leukemia) Code(s): C92.00 - Acute myeloblastic leukemia, not having achieved remission Status: Acute - Plan 04/15 D1 Daunorubicin + Cytarabine 04/16: D2 Daunorubicin + Cytarabine 72: D3 Daunorubicin + Cytarabine 04/18: D4 Cytarabine. Afebrile. Tolerating chemo well. 04/19: D5 Cytarabine continue 04/20: D6 Cytarabine continues. 04/21: D7 Cytarabine continues. Afebrile, tolerating well. 04/22: D8 cytarabine. Afebrile, platelet transfusion this a.m. Now with jaw pain. 04/23: D9 Cytarabine completed overnight. Afebrile. Continued jaw pain. Diarrhea 3 x's/day, +n/v x's 1, + insomnia. 04/24: D10 febrile, T-max 102. Blood cultures pending. Currently on cefepime. ID and ENT consult. 04/25: D11 febrile, T-max 102.5F. Blood cultures no growth 2 days. Antibiotics per ID. ENT deferred consult to oral maxillofacial surgery. 1. Neutropenic fever. Blood cultures no growth 2 days. Infectious disease is following. 2. Continue neutropenic precautions. 3. Continue to monitor for fevers, notify provider and obtain blood cultures per policy. Obtain blood cultures if fever 101F or greater. 4. Anemia and thrombocytopenia. Transfuse for hgb <7.0 and platelet <15K or symptoms. Hemoglobin 7.4, platelets 18 K. No obvious signs of bleeding, we will continue to monitor H&H. 5. Lower jaw pain, now resolved. CT facial bones was negative for acute process. ENT deferred consult oral maxillofacial surgeon, this is still pending. 6. Swollen gums, erosive gingivitis. Continue viscous lidocaine swish and spit as needed for pain. Continue chlorhexidine antibacterial rinse. Infectious disease has added acyclovir for possible viral associated gingivitis. 7. Continue Restoril as needed for insomnia. 8. Diarrhea is stable, continue to monitor. 9. We will arrange for the day #14 (04/28/18) bone marrow biopsy. - Attending Statement The exam, history, and the medical decision-making described in the above note were completed with the assistance of the mid-level provider. I reviewed and agree with the findings presented. I attest that I had a flgt-to-cdep encounter with the patient on the same day, and personally performed and documented my assessment and findings in the medical record. Patient seen and examined in the evening. He states his mouth and swelling is decreasing. Local therapy with Magic mouthwash and Biotene appears to be helping. Case was discussed with infectious disease of. His antibiotic regimen has been changed. Unfortunately he remains neutropenic and febrile. care consultant Dr. Lutz was called through call center, to explain that the reason for the ENT consult was not merely for gingivitis which is a consult placed to the maxilla orofacial surgeon. We have an impressive task, requiring intelligence, multidisciplinary approach of trying to determine causes of fever from the mouth, given the patient's complaint of jaw pain, swelling, evidence of mucositis, and with recent chemotherapy. Mr. Hall is quite ill with persistent fever and neutropenia. He is expected to be neutropenic for some time post his induction chemotherapy for acute myelogenous leukemia. Any assistance from our care consultant to determine or rule out a treatable source of fever in the head and neck area would be much appreciated, not limited to his gingivitis. (2) AML (acute myeloid leukemia) Qualifiers: Leukemia Active/Remission status: without remission Qualified Code(s): C92.00 - Acute myeloblastic leukemia, not having achieved remission
--- NOTE | 2018-04-25 17:04 | P.PNIM ---
Subjective Interval history: 7-9 Follow up for AML and neutropenic fever. Patient is doing well. He reports no jaw pain anymore but complains of upper lip swelling. No complains of respiratory compromise. T-max 102F. 7-10 IN neutropenic precautions Had fevers Remains on antibiotics Has some abdominal pain on and off Discussed with patient and RN and case management and oncology A.m. labs Physical Exam Vital signs: Vital Signs 04/24/18 19:59 04/24/18 20:55 04/25/18 00:00 Temperature 102 F H 101.1 F H Pulse Rate 91 H 108 H 129 H Respiratory Rate 16 Blood Pressure 143/76 H 133/82 Pulse Oximetry 99 98 04/25/18 04:20 04/25/18 05:00 04/25/18 08:00 Temperature 102.5 F H 99.6 F Pulse Rate 91 H 97 H 100 H Respiratory Rate 16 16 Blood Pressure 138/71 134/65 Pulse Oximetry 99 98 04/25/18 12:00 Temperature 101.0 F H Pulse Rate 121 H Respiratory Rate 20 Blood Pressure 144/70 H Pulse Oximetry 98 Intake & Output 04/24/18 04/25/18 04/25/18 18:59 06:59 18:59 Intake Total 2478 / 2478 1835 / 1835 Output Total 1200 / 1200 3700 / 3700 650 / 650 Balance 1278 / 1278 -1865 / -1865 -650 / -650 Weight 106.2 kg Intake: IV 200 / 200 715 / 715 Maxipime Inj 2,000 MG In NS Inj 200 / 200 200 / 200 100 ML @ 200 mls/hr IV.SIG Q8H [facility] Rx#:[id number] Vancomycin Inj 1,500 MG In NS 515 / 515 Inj 500 ML @ 250 mls/hr IV.SIG Q12HR [facility] Rx#:[id number] Oral 1600 / 1600 1120 / 1120 Intake (Blood Product) Amt 678 / 678 Plt Pheresis A Lr/Irr Unit 278 / 278 [id number] Rbc As-3 Leukoreduced Irrad 400 / 400 Unit [id number] Output: Urine 1200 / 1200 3700 / 3700 650 / 650 Other: Date of Last Bowel Movement 04/24/18 04/24/18 04/24/18 # Bowel Movements 3 3 Narrative: GENERAL: Awake alert and oriented 3 talkative and cooperative SKIN: Warm and dry. HEAD: Normocephalic. Atraumatic EYES: No scleral icterus. No injection or drainage. NECK: Supple, trachea midline. No JVD or lymphadenopathy. CARDIOVASCULAR: Regular rate and rhythm without murmurs, gallops, or rubs. S1- S2 no S3 or S4 RESPIRATORY: Breath sounds equal bilaterally. No accessory muscle use. GASTROINTESTINAL: Abdomen soft, non-tender, nondistended. MUSCULOSKELETAL: No cyanosis, or edema. BACK: Nontender without obvious deformity. No CVA tenderness. Insight and judgment is good Mood and behaviors appropriate Results - Labs CBC & Chem 7: 04/25/18 05:00 04/24/18 03:25 Laboratory Results - last 24 hr 04/24/18 04/25/18 07:45 05:00 WBC 0.1 L RBC 2.53 L Hgb 7.4 L Hct 21.1 L MCV 83.3 MCH 29.2 MCHC 35.1 RDW 15.5 Plt Count 18 L* MPV 7.7 Prelim Diff (Auto) Manual diff required WBC Differential Manual diff final Seg Neuts % (Manual) 0 L Lymphocytes % (Manual) 100 H Abs Neuts (Manual) 0.0 L* Differential Comment . Platelet Estimate Rare L Platelet Morphology Normal MTS Gel Crossmatch See Detail Microbiology 04/23/18 21:45 Blood - Peripheral Aerobic Blood Culture - Preliminary No growth in 2 days 04/23/18 21:45 Blood - Peripheral Anaerobic Blood Culture - Preliminary No growth in 2 days 04/23/18 21:50 Blood - Line Aerobic Blood Culture - Preliminary No growth in 2 days 04/23/18 21:50 Blood - Line Anaerobic Blood Culture - Preliminary No growth in 2 days 04/23/18 14:27 Blood - Peripheral Aerobic Blood Culture - Preliminary No growth in 2 days 04/23/18 14:27 Blood - Peripheral Anaerobic Blood Culture - Preliminary No growth in 2 days 04/23/18 11:50 Blood - Line Aerobic Blood Culture - Preliminary No growth in 2 days 04/23/18 11:50 Blood - Line Anaerobic Blood Culture - Preliminary No growth in 2 days - Imaging ITS Impressions Face CT 04/23/18 00:00 CONCLUSION: 1. No acute fracture. 2. No soft tissue abnormality. Chest X-Ray 04/23/18 21:13 CONCLUSION: Right central line in superior vena cava. No active disease. - Procedures BM biopsy Leal catheter placement Echo 04/14/2018 The left ventricular systolic function is hyperdynamic with an estimated ejection fraction in the range of 65- 70%. Normal left ventricular size. Wall thickness is normal. No regional wall motion abnormalities are present. Trace mitral valve regurgitation. The left ventricular systolic function is hyperdynamic with an estimated ejection fraction in the range of 65- 70%. Normal left ventricular size. Wall thickness is normal. No regional wall motion abnormalities are present. Trace mitral valve regurgitation. The estimated pulmonary arterial pressure is 30.6 mmHg. Assessment and Plan - Assessment (1) AML (acute myeloid leukemia) Code(s): C92.00 - Acute myeloblastic leukemia, not having achieved remission Status: Acute - Plan Mr. Hall is a pleasant 27-year-old male who was admitted on 2017 due to generalized weakness. His hemoglobin was 3.3 and platelet 30 on admission. Hematology oncology was consulted for pancytopenia. Patient was eventually diagnosed with AML. Hematology oncology started treatment for AML. Acute myeloid leukemia -Confirmed with bone marrow biopsy on 04/13/2018. -Patient has received induction therapy 7+3 chemotherapy. Currently on Cytarabine. Tolerating chemotherapy well. -Hemoglobin 7.1, WBC 0.1, platelets 17K on 04/23/2018. Neutrophil count essentially zero on 04/22/2018. Neutropenic fever -Urinalysis, chest x-ray unremarkable. Continue cefepime 2 g every 8 hours. -Being seen by infectious disease Jaw pain -CT scan shows no evidence of any necrosis or other pathology. Diarrhea -C. difficile PCR negative. History of seizure -continue seizure precautions. Full code. SCDs, Ambulation. A.m. labs Code Status: Full code Discussed Condition With: Discussed with RN and patient and case management and oncology Discharge Planning: Pending clearance by all (1) AML (acute myeloid leukemia) Qualifiers: Leukemia Active/Remission status: without remission Qualified Code(s): C92.00 - Acute myeloblastic leukemia, not having achieved remission
--- NOTE | 2018-04-25 18:20 | P.PNID ---
Subjective Remarks: Patient says his mouth feels better. Notes abdominal discomfort/upset stomach. No chills, nausea or vomiting. No dysuria, cough or SOB. Spiking temps. Cultures negative. 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 The patient has undergone chemotherapy with daunorubicin plus cytarabine. Allergies/Adverse Reactions: Allergies No Known Allergies Allergy (Unknown, Uncoded 04/12/18 14:54) Objective Vital Signs 04/24/18 19:59 04/24/18 20:55 04/25/18 00:00 Temperature 102 F H 101.1 F H Pulse Rate 91 H 108 H 129 H Respiratory Rate 16 Blood Pressure 143/76 H 133/82 Pulse Oximetry 99 98 04/25/18 04:20 04/25/18 05:00 04/25/18 08:00 Temperature 102.5 F H 99.6 F Pulse Rate 91 H 97 H 100 H Respiratory Rate 16 16 Blood Pressure 138/71 134/65 Pulse Oximetry 99 98 04/25/18 12:00 04/25/18 17:31 Temperature 101.0 F H Pulse Rate 121 H Respiratory Rate 20 Blood Pressure 144/70 H Pulse Oximetry 98 98 Intake & Output 04/24/18 04/25/18 04/25/18 18:59 06:59 18:59 Intake Total 2478 / 2478 1835 / 1835 Output Total 1200 / 1200 3700 / 3700 650 / 650 Balance 1278 / 1278 -1865 / -1865 -650 / -650 Weight 106.2 kg Intake: IV 200 / 200 715 / 715 Maxipime Inj 2,000 MG In NS Inj 200 / 200 200 / 200 100 ML @ 200 mls/hr IV.SIG Q8H [facility] Rx#:[id number] Vancomycin Inj 1,500 MG In NS 515 / 515 Inj 500 ML @ 250 mls/hr IV.SIG Q12HR [facility] Rx#:[id number] Oral 1600 / 1600 1120 / 1120 Intake (Blood Product) Amt 678 / 678 Plt Pheresis A Lr/Irr Unit 278 / 278 [id number] Rbc As-3 Leukoreduced Irrad 400 / 400 Unit [id number] Output: Urine 1200 / 1200 3700 / 3700 650 / 650 Other: Date of Last Bowel Movement 0704/24/18 04/24/18 # Bowel Movements 3 3 04/23/18 21:45 Blood - Peripheral Aerobic Blood Culture - Preliminary No growth in 2 days 04/23/18 21:45 Blood - Peripheral Anaerobic Blood Culture - Preliminary No growth in 2 days 04/23/18 21:50 Blood - Line Aerobic Blood Culture - Preliminary No growth in 2 days 04/23/18 21:50 Blood - Line Anaerobic Blood Culture - Preliminary No growth in 2 days 04/23/18 14:27 Blood - Peripheral Aerobic Blood Culture - Preliminary No growth in 2 days 04/23/18 14:27 Blood - Peripheral Anaerobic Blood Culture - Preliminary No growth in 2 days 04/23/18 11:50 Blood - Line Aerobic Blood Culture - Preliminary No growth in 2 days 04/23/18 11:50 Blood - Line Anaerobic Blood Culture - Preliminary No growth in 2 days Lab - Hematology Results 04/24/18 04/25/18 03:25 05:00 WBC 0.1 L 0.1 L RBC 2.45 L 2.53 L Hgb 7.1 L 7.4 L Hct 20.7 L* 21.1 L MCV 84.4 83.3 MCH 28.9 29.2 MCHC 34.2 35.1 RDW 16.2 15.5 Plt Count 17 L* D 18 L* MPV 8.5 7.7 Prelim Diff (Auto) Slide review pending Manual diff required WBC Differential Manual diff final Manual diff final Seg Neuts % (Manual) 0 L 0 L Lymphocytes % (Manual) 100 H 100 H Abs Neuts (Manual) 0.0 L* 0.0 L* Differential Comment . . Platelet Estimate Rare L Rare L Platelet Morphology Normal Normal Ovalocytes 1+ H Lab - Chemistry Results 04/24/18 03:25 Sodium 134 L Potassium 4.2 Chloride 99 Carbon Dioxide 24.9 Anion Gap 10 BUN 6 L Creatinine 0.72 Estimated GFR Greater than 89 Random Glucose 119 H Calcium 8.2 L Imaging: ITS Impressions Face CT 04/23/18 00:00 CONCLUSION: 1. No acute fracture. 2. No soft tissue abnormality. Chest X-Ray 04/23/18 21:13 CONCLUSION: Right central line in superior vena cava. No active disease. Physical Exam: PHYSICAL EXAMINATION: GENERAL: No acute distress.Awake and alert and oriented. HEENT: Head atraumatic and normocephalic. Extraocular muscles are intact. Pupils reactive to light. No icterus. No conjunctival erythema. Nose: No drainage. Oropharynx: Erosive changes at the base of the teeth anteriorly with ulcerations at the inner gumline. NECK: Supple without adenopathy. LUNGS: Decreased breath sounds HEART: Regular S1 and S2. No murmurs. No rubs. No gallops. ABDOMEN: Bowel sounds present, obese, soft. No tenderness. EXTREMITIES: No clubbing, cyanosis or edema. SKIN: No rash. NEUROLOGIC: Cranial nerves II-XII intact. PSYCHIATRIC: Calm , cooperative. Interactive. Assessment and Plan - Plan IMPRESSION: 1. Neutropenic fever. Cultures negative. 2. Acute myeloid leukemia. 3. Gingivitis. RECOMMENDATIONS: 1. Continue cefepime. 2. Continue vancomycin. 3. Continue acyclovir for possible viral associated gingivitis. 4. Monitor temps. 5. Monitor cultures. 6. Monitor for signs of a foci of infection.
[2018-04-26] MEDS: Acetaminophen 325 MG Tablet PO PRN ×4 (00:42→19:40)
[2018-04-26] MEDS: Heparin Central Flush 100 UNIT/ML 5 ML Vial IV.FLUSH PRN (00:44)
[2018-04-26] MEDS: Acyclovir 200 MG Capsule PO SCH ×3 (05:17→22:06)
[2018-04-26 05:46] LABS: Mean Corpuscular HGB Conc 35.4 % (32.0-36.0); Mean Corpuscular Hemoglobin 29.3 pg (27.0-34.0); Mean Corpuscular Volume 82.8 fL (80.0-100.0); Mean Platelet Volume 7.9 fL (7.0-11.0); Red Blood Count 2.32 mil/mm3 (4.50-5.90); Red Cell Distribution Width 14.9 % (11.6-17.2); White Blood Count 0.1 th/mm3 (4.0-11.0)
[2018-04-26 05:51] LABS: Hemoglobin 6.8 gm/dL (13.0-17.0)
[2018-04-26 05:52] LABS: Hematocrit 19.2 % (39.0-51.0); Platelet Count 13 th/mm3 (150-450)
[2018-04-26 06:15] LABS: Alanine Aminotransferase 39 U/L (12-78); Albumin 2.4 g/dL (3.4-5.0); Alkaline Phosphatase 101 U/L (45-117); Anion Gap 11 meq/L (5-15); Blood Urea Nitrogen 7 mg/dL (7-18); Calcium 8.7 mg/dL (8.5-10.1); Carbon Dioxide 23.3 meq/L (21.0-32.0); Chloride 99 meq/L (98-107); Glomerular Filtration Rate Greater Than 89 mL/min (>89); Glucose,Random 107 mg/dL (74-106); Magnesium 2.2 mg/dL (1.5-2.5); Sodium 133 meq/L (136-145); Total Protein 6.6 g/dL (6.4-8.2)
--- NOTE | 2018-04-26 07:24 | P.PN ---
Subjective Interval history: Asked to see patient regarding mouth pain. He describes mucositis with gingivitis. Main lesion anterior below upper frenum. He states he is much better with minimal pain. Had some neck soreness, this is resolving. Physical Exam Vital signs: Vital Signs 04/25/18 08:00 04/25/18 12:00 04/25/18 16:00 Temperature 99.6 F 101.0 F H Pulse Rate 100 H 121 H 94 H Respiratory Rate 16 20 Blood Pressure 134/65 144/70 H Pulse Oximetry 98 98 04/25/18 17:31 04/25/18 18:44 04/25/18 20:00 Temperature 101.4 F H 98.2 F Pulse Rate 91 H 105 H Respiratory Rate 20 18 Blood Pressure 148/82 H 146/86 H Pulse Oximetry 98 99 98 04/25/18 20:07 04/26/18 00:00 04/26/18 00:06 Temperature 102 F H Pulse Rate 98 H 108 H 95 H Respiratory Rate 18 Blood Pressure 131/75 Pulse Oximetry 98 04/26/18 04:00 04/26/18 05:05 Temperature 100.1 F H Pulse Rate 84 95 H Respiratory Rate 16 Blood Pressure 135/78 Pulse Oximetry 98 Intake & Output 04/25/18 04/26/18 04/26/18 18:59 06:59 18:59 Intake Total 615 / 615 3160 / 3160 Output Total 650 / 650 2200 / 2200 Balance -35 / -35 960 / 960 Weight 105.8 kg Intake: IV 615 / 615 760 / 760 Maxipime Inj 2,000 MG In NS Inj 100 / 100 200 / 200 100 ML @ 200 mls/hr IV.SIG Q8H [facility] Rx#:[id number] Vancomycin Inj 1,500 MG In NS 515 / 515 560 / 560 Inj 500 ML @ 250 mls/hr IV.SIG Q12HR [facility] Rx#:[id number] Oral 2400 / 2400 Output: Urine 650 / 650 2200 / 2200 Other: Date of Last Bowel Movement 04/24/18 04/24/18 - Routine HEENT Exam ENT: Present: mucous membranes moist (Resolving mucositis. No abscess, no lesion. ) Results - Labs CBC & Chem 7: 04/26/18 05:05 04/26/18 05:05 Laboratory Results - last 24 hr 04/24/18 04/25/18 04/26/18 07:45 05:00 05:05 WBC 0.1 L RBC 2.32 L Hgb 6.8 L* Hct 19.2 L* MCV 82.8 MCH 29.3 MCHC 35.4 RDW 14.9 Plt Count 13 L* MPV 7.9 Prelim Diff (Auto) Slide review pending WBC Differential Manual diff final Seg Neuts % (Manual) 0 L Lymphocytes % (Manual) 100 H Abs Neuts (Manual) 0.0 L* Differential Comment . Platelet Estimate Rare L Platelet Morphology Normal Sodium Potassium Chloride Carbon Dioxide Anion Gap BUN Creatinine Estimated GFR Random Glucose Calcium Phosphorus Magnesium Total Bilirubin AST ALT Alkaline Phosphatase Total Protein Albumin TSH Free T4 Blood Type MTS Gel Crossmatch See Detail 04/26/18 04/26/18 04/26/18 05:05 05:05 06:15 WBC RBC Hgb Hct MCV MCH MCHC RDW Plt Count MPV Prelim Diff (Auto) WBC Differential Seg Neuts % (Manual) Lymphocytes % (Manual) Abs Neuts (Manual) Differential Comment Platelet Estimate Platelet Morphology Sodium 133 L Potassium 4.0 Chloride 99 Carbon Dioxide 23.3 Anion Gap 11 BUN 7 Creatinine 0.58 L Estimated GFR Greater than 89 Random Glucose 107 H Calcium 8.7 Phosphorus 3.0 Magnesium 2.2 Total Bilirubin 1.7 H AST Less than 3 L ALT 39 Alkaline Phosphatase 101 Total Protein 6.6 Albumin 2.4 L TSH 1.550 Free T4 1.20 Blood Type O Positive MTS Gel Crossmatch See Detail Microbiology 04/23/18 21:45 Blood - Peripheral Aerobic Blood Culture - Preliminary No growth in 2 days 04/23/18 21:45 Blood - Peripheral Anaerobic Blood Culture - Preliminary No growth in 2 days 04/23/18 21:50 Blood - Line Aerobic Blood Culture - Preliminary No growth in 2 days 04/23/18 21:50 Blood - Line Anaerobic Blood Culture - Preliminary No growth in 2 days 04/23/18 14:27 Blood - Peripheral Aerobic Blood Culture - Preliminary No growth in 2 days 04/23/18 14:27 Blood - Peripheral Anaerobic Blood Culture - Preliminary No growth in 2 days 04/23/18 11:50 Blood - Line Aerobic Blood Culture - Preliminary No growth in 2 days 04/23/18 11:50 Blood - Line Anaerobic Blood Culture - Preliminary No growth in 2 days - Procedures BM biopsy Leal catheter placement Echo 04/14/2018 The left ventricular systolic function is hyperdynamic with an estimated ejection fraction in the range of 65- 70%. Normal left ventricular size. Wall thickness is normal. No regional wall motion abnormalities are present. Trace mitral valve regurgitation. The left ventricular systolic function is hyperdynamic with an estimated ejection fraction in the range of 65- 70%. Normal left ventricular size. Wall thickness is normal. No regional wall motion abnormalities are present. Trace mitral valve regurgitation. The estimated pulmonary arterial pressure is 30.6 mmHg. Assessment and Plan - Plan Mucositis resolving. No abscess or lesion. Patient reports he is much better. Recommend routine dental care.
[2018-04-26 08:10] LABS: Lymphocytes 100 % (9-44)
[2018-04-26 08:11] LABS: Platelet Estimate Rare (Normal); Platelet Morphology Normal (Normal)
[2018-04-26] MEDS ORDERED: Pharmacy Ordered Lab Info OTHER ONE (08:45)
--- NOTE | 2018-04-26 08:58 | P.PNONC ---
Subjective Interval history: I vomited this morning. My stomach hurts Objective Vital Signs/Intake & Output: Vital Signs 04/25/18 12:00 04/25/18 16:00 04/25/18 17:31 Temperature 101.0 F H Pulse Rate 121 H 94 H Respiratory Rate 20 Blood Pressure 144/70 H Pulse Oximetry 98 98 04/25/18 18:44 04/25/18 20:00 04/25/18 20:07 Temperature 101.4 F H 98.2 F Pulse Rate 91 H 105 H 98 H Respiratory Rate 20 18 Blood Pressure 148/82 H 146/86 H Pulse Oximetry 99 98 04/26/18 00:00 04/26/18 00:06 04/26/18 04:00 Temperature 102 F H Pulse Rate 108 H 95 H 84 Respiratory Rate 18 Blood Pressure 131/75 Pulse Oximetry 98 04/26/18 05:05 04/26/18 07:45 04/26/18 08:50 Temperature 100.1 F H 98.7 F Pulse Rate 95 H 112 H 91 H Respiratory Rate 16 20 Blood Pressure 135/78 145/80 H Pulse Oximetry 98 98 Intake & Output 04/25/18 04/26/18 04/26/18 18:59 06:59 18:59 Intake Total 615 / 615 3160 / 3160 Output Total 650 / 650 2200 / 2200 Balance -35 / -35 960 / 960 Weight 105.8 kg Intake: IV 615 / 615 760 / 760 Maxipime Inj 2,000 MG In NS Inj 100 / 100 200 / 200 100 ML @ 200 mls/hr IV.SIG Q8H [facility] Rx#:[id number] Vancomycin Inj 1,500 MG In NS 515 / 515 560 / 560 Inj 500 ML @ 250 mls/hr IV.SIG Q12HR [facility] Rx#:[id number] Oral 2400 / 2400 Output: Urine 650 / 650 2200 / 2200 Other: Date of Last Bowel Movement 04/24/18 04/24/18 # Bowel Movements 2 Result Diagrams: 04/26/18 05:05 04/26/18 05:05 Laboratory Results: Laboratory Results - last 24 hr 04/26/18 04/26/18 04/26/18 05:05 05:05 05:05 WBC 0.1 L RBC 2.32 L Hgb 6.8 L* Hct 19.2 L* MCV 82.8 MCH 29.3 MCHC 35.4 RDW 14.9 Plt Count 13 L* MPV 7.9 Prelim Diff (Auto) Slide review pending WBC Differential Manual diff final Lymphocytes % (Manual) 100 H Abs Neuts (Manual) 0.0 L* Differential Comment . Platelet Estimate Rare L Platelet Morphology Normal Sodium 133 L Potassium 4.0 Chloride 99 Carbon Dioxide 23.3 Anion Gap 11 BUN 7 Creatinine 0.58 L Estimated GFR Greater than 89 Random Glucose 107 H Calcium 8.7 Phosphorus 3.0 Magnesium 2.2 Total Bilirubin 1.7 H AST Less than 3 L ALT 39 Alkaline Phosphatase 101 Total Protein 6.6 Albumin 2.4 L TSH 1.550 Free T4 1.20 Blood Type Antibody Screen MTS Gel Crossmatch Bld Prod Order Comment 04/26/18 06:15 WBC RBC Hgb Hct MCV MCH MCHC RDW Plt Count MPV Prelim Diff (Auto) WBC Differential Lymphocytes % (Manual) Abs Neuts (Manual) Differential Comment Platelet Estimate Platelet Morphology Sodium Potassium Chloride Carbon Dioxide Anion Gap BUN Creatinine Estimated GFR Random Glucose Calcium Phosphorus Magnesium Total Bilirubin AST ALT Alkaline Phosphatase Total Protein Albumin TSH Free T4 Blood Type O Positive Antibody Screen Negative MTS Gel Crossmatch See Detail Bld Prod Order Comment Culture Results: Microbiology 04/23/18 21:45 Aerobic Blood Culture - Preliminary Blood - Peripheral No growth in 2 days Anaerobic Blood Culture - Preliminary No growth in 2 days 04/23/18 21:50 Aerobic Blood Culture - Preliminary Blood - Line No growth in 2 days Anaerobic Blood Culture - Preliminary No growth in 2 days 04/23/18 14:27 Aerobic Blood Culture - Preliminary Blood - Peripheral No growth in 2 days Anaerobic Blood Culture - Preliminary No growth in 2 days 04/23/18 11:50 Aerobic Blood Culture - Preliminary Blood - Line No growth in 2 days Anaerobic Blood Culture - Preliminary No growth in 2 days Medications: Active Medications Generic Name Dose Route Start Last Admin Trade Name Freq PRN Reason Stop Dose Admin Acetaminophen 650 mg 04/16/18 00:00 04/26/18 05:17 Tylenol PO 650 mg Q4H PRN Administration TEMPERATURE > 100 F Acetaminophen 650 mg 04/24/18 09:00 04/24/18 08:45 Tylenol PO 650 mg Q4H PRN Administration SEE LABEL COMMENTS Hydrocodone Bitart/Acetaminophen 1 tab 04/23/18 11:51 04/25/18 18:45 [place] 7.5/325 PO 1 tab Q6H PRN Administration PAIN SCALE 6 TO 10 Acyclovir 400 mg 04/24/18 22:00 04/26/18 05:17 Zovirax PO 400 mg Q8HR [facility] Administration Chlorhexidine Gluconate 15 ml 04/23/18 21:00 04/25/18 20:50 Peridex 0.12% Liq SWISH-SPIT 15 ml BID [facility] Administration Diphenhydramine HCl 25 mg 04/16/18 00:00 04/24/18 08:43 Benadryl PO 25 mg Q4H PRN Administration SEE LABEL COMMENTS Heparin Sodium (Porcine) 0 unit 04/16/18 00:00 04/26/18 00:44 Heparin Central Flush IV.FLUSH 200 unit PRN PRN Administration Flush each lumen Heparin Sodium (Porcine) 0 unit 04/16/18 09:00 04/25/18 09:10 Heparin Central Flush IV.FLUSH Not Given DAILY [facility] Cefepime HCl 2,000 mg/ Sodium 100 mls @ 200 mls/hr 04/23/18 13:00 04/26/18 06 :15 Chloride IV.SIG Infused Q8H [facility] Infusion Vancomycin HCl 1,500 mg/ 515 mls @ 250 mls/hr 04/24/18 21:00 04/26/18 00:45 Sodium Chloride IV.SIG Infused Q12HR [facility] Infusion Lidocaine HCl 15 ml 04/23/18 10:00 04/23/18 10:21 Xylocaine 2% Viscous SWISH-SPIT 15 ml Q4H PRN Administration PAIN SCALE 6 TO 10 Miscellaneous Information 1 each 04/16/18 00:00 04/16/18 13:22 [facility] [place] Nursing Information OTHER Not Given Q361D [facility] Morphine Sulfate 2 mg 04/16/18 00:00 04/23/18 12:56 Morphine Inj IV.PUSH 2 mg Q2H PRN Administration PAIN SCALE 6 TO 10 Multi-Ingredient Mouthwash/Gargle 5 ml 04/22/18 13:00 04/25/18 20:50 Magic Mouthwash Adult Liq SWISH-SWAL 5 ml QID [facility] Administration Ondansetron HCl 4 mg 04/16/18 00:00 04/23/18 10:26 Zofran Inj IV.PUSH 4 mg Q6H PRN Administration NAUSEA OR VOMITING Pantoprazole Sodium 40 mg 04/16/18 09:00 04/25/18 09:11 Protonix PO 40 mg DAILY [facility] Administration Sodium Chloride 0 ml 04/16/18 09:00 04/25/18 09:10 Ns Flush IV.FLUSH Not Given DAILY [facility] Sodium Chloride 0 ml 04/16/18 00:00 04/26/18 00:43 Ns Flush IV.FLUSH 2 ml PRN PRN Administration FLUSH AFTER USING IV ACCESS Temazepam 15 mg 04/23/18 21:00 04/23/18 22:40 Restoril PO 15 mg HS PRN Administration INSOMNIA Objective Remarks: GENERAL: Well-nourished, young man, well-developed patient. SKIN: Warm and dry. Mouth with mucositis and gingivitis. There is evidence of plaque. HEAD: Normocephalic. EYES: No scleral icterus. No injection or drainage. NECK: Supple, trachea midline. No JVD or lymphadenopathy. LYMPHATIC: No adenopathy. CARDIOVASCULAR: Regular rate and rhythm without murmurs. RESPIRATORY: Breath sounds equal bilaterally. No accessory muscle use. GASTROINTESTINAL: Abdomen soft, bowel sounds present but diffusely tender. No guarding or rebound. EXTREMITIES: No cyanosis, or edema. MUSCULOSKELETAL: Adequate muscle tone. NEUROLOGICAL: No obvious focal deficit. Awake, alert, and oriented x3. PSYCHIATRIC: Appropriate mood and affect; insight and judgment normal. Assessment/Plan (1) Pancytopenia due to antineoplastic chemotherapy Code(s): D61.810 - Antineoplastic chemotherapy induced pancytopenia; T45.1X5A - Adverse effect of antineoplastic and immunosuppressive drugs, initial encounter Status: Acute (2) AML (acute myeloid leukemia) Code(s): C92.00 - Acute myeloblastic leukemia, not having achieved remission Status: Acute - Plan 04/15 D1 Daunorubicin + Cytarabine 04/16: D2 Daunorubicin + Cytarabine 72: D3 Daunorubicin + Cytarabine 04/18: D4 Cytarabine. Afebrile. Tolerating chemo well. 04/19: D5 Cytarabine continue 04/20: D6 Cytarabine continues. 04/21: D7 Cytarabine continues. Afebrile, tolerating well. 04/22: D8 cytarabine. Afebrile, platelet transfusion this a.m. Now with jaw pain. 04/23: D9 Cytarabine completed overnight. Afebrile. Continued jaw pain. Diarrhea 3 x's/day, +n/v x's 1, + insomnia. 04/24: D10 febrile, T-max 102. Blood cultures pending. Currently on cefepime. ID and ENT consult. 04/25: D11 febrile, T-max 102.5F. Blood cultures no growth 2 days. Antibiotics per ID. ENT deferred consult to oral maxillofacial surgery. 1. Neutropenic fever. Continue antibiotic support. Fever curve tend to be trending down.. 2. Continue neutropenic precautions. 3. Nausea and vomiting this a.m. Trial of Compazine parenterally. Lorazepam could also be used for nausea as adjunctive therapy. 4. Anemia and thrombocytopenia. Transfuse for hgb <7.0 and platelet <15K or symptoms. Hemoglobin 7.4, platelets 18 K. He will need transfusion today of red cells and platelets. 5. Lower jaw pain, and mucositis. ENT consultation appreciated. 6. Swollen gums, erosive gingivitis. Continue viscous lidocaine swish and spit as needed for pain. Continue chlorhexidine antibacterial rinse. Infectious disease has added acyclovir for possible viral associated gingivitis. 7. Continue Restoril as needed for insomnia. 8. Abdominal pain. Continue to monitor. Local therapy such as warm hot water bottle. Antiemetic therapy. Monitor for resolution of abdominal pain. Suspect it is gas. Abdominal pain persists we will image. 9. We will arrange for the day #14 (04/28/18) bone marrow biopsy. (2) AML (acute myeloid leukemia) Qualifiers: Leukemia Active/Remission status: without remission Qualified Code(s): C92.00 - Acute myeloblastic leukemia, not having achieved remission
[2018-04-26] MEDS: Nystatin/Diphenhydramine/Lidocaine Mouthwash (Adult) 120 ML Botttle SWISH-SWAL SCH ×4 (09:08→20:44)
[2018-04-26] MEDS: Vancomycin Inj 1,500 MG in Sodium Chlor 0.9% Inj 500 ML IV.SIG SCH ×3 (09:08→22:05)
[2018-04-26] MEDS: Heparin Central Flush 100 UNIT/ML 5 ML Vial IV.FLUSH SCH (09:09)
[2018-04-26] MEDS: Chlorhexidine Gluconate 0.12% Liq 15 ML UDC SWISH-SPIT SCH ×2 (10:29→20:44)
--- NOTE | 2018-04-26 13:03 | P.PNID ---
Subjective Remarks: Patient says his mouth feels okay. Notes abdominal discomfort is better. Sweats last night. Afebrile now. fever last night. No chills, nausea or vomiting. No dysuria, cough or SOB. Cultures negative. 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 The patient has undergone chemotherapy with daunorubicin plus cytarabine. Antibiotics: Active Medications Acyclovir (Zovirax) 400 mg PO Q8HR PENDING SALE TO [facility] Last Admin: 04/26/18 05:17 Dose: 400 mg Last Admin: 04/26/18 09:09 Dose: 25 mg Fluconazole (Diflucan) 200 mg PO DAILY [facility] Last Admin: 04/26/18 09:09 Dose: 500 unit Cefepime HCl 2,000 mg/ Sodium (Chloride) 100 mls @ 200 mls/hr IV.SIG Q8H [facility] Last Infusion: 04/26/18 06:15 Dose: Infused Pharmacy Profile Note (Vancomycin Consult Pharmacy) 0 mls @ 0 mls/hr OTHER UNSCH PENDING SALE TO [facility] Vancomycin HCl 1,500 mg/ (Sodium Chloride) 515 mls @ 250 mls/hr IV.SIG Q6H [facility]END[facility] Lines: Leal catheter without evidence of infection. Allergies/Adverse Reactions: Allergies No Known Allergies Allergy (Unknown, Uncoded 04/12/18 14:54) Objective Vital Signs 04/25/18 16:00 04/25/18 17:31 04/25/18 18:44 Temperature 101.4 F H Pulse Rate 94 H 91 H Respiratory Rate 20 Blood Pressure 148/82 H Pulse Oximetry 98 99 04/25/18 20:00 04/25/18 20:07 04/26/18 00:00 Temperature 98.2 F 102 F H Pulse Rate 105 H 98 H 108 H Respiratory Rate 18 18 Blood Pressure 146/86 H 131/75 Pulse Oximetry 98 98 04/26/18 00:06 04/26/18 04:00 04/26/18 05:05 Temperature 100.1 F H Pulse Rate 95 H 84 95 H Respiratory Rate 16 Blood Pressure 135/78 Pulse Oximetry 98 04/26/18 07:45 04/26/18 08:50 04/26/18 10:14 Temperature 98.7 F 98.6 F Pulse Rate 112 H 91 H 92 H Respiratory Rate 20 18 Blood Pressure 145/80 H 126/78 Pulse Oximetry 98 98 07/11/18 10:25 04/26/18 10:45 04/26/18 11:00 Temperature 99.1 F 99.1 F Pulse Rate 91 H 89 Respiratory Rate 20 20 18 Blood Pressure 122/71 139/71 Pulse Oximetry 98 99 04/26/18 12:00 Temperature Pulse Rate 75 Respiratory Rate Blood Pressure Pulse Oximetry Intake & Output 04/25/18 04/26/18 04/26/18 18:59 06:59 18:59 Intake Total 615 / 615 3160 / 3160 245 / 245 Output Total 650 / 650 2200 / 2200 Balance -35 / -35 960 / 960 245 / 245 Weight 105.8 kg Intake: IV 615 / 615 760 / 760 Maxipime Inj 2,000 MG In NS Inj 100 / 100 200 / 200 100 ML @ 200 mls/hr IV.SIG Q8H [facility] Rx#:[id number] Vancomycin Inj 1,500 MG In NS 515 / 515 560 / 560 Inj 500 ML @ 250 mls/hr IV.SIG Q12HR [facility] Rx#:[id number] Oral 2400 / 2400 Intake (Blood Product) Amt 245 / 245 Plt Pheresis Leukored/ Irr 245 / 245 Unit [id number] Rbc As-3 Leukoreduced Irrad 0 / 0 Unit [id number] Output: Urine 650 / 650 2200 / 2200 Other: Date of Last Bowel Movement 04/24/18 04/24/18 04/25/18 # Bowel Movements 2 04/25/18 19:15 Blood - Peripheral Aerobic Blood Culture - Preliminary No growth in 1 day 04/25/18 19:15 Blood - Peripheral Anaerobic Blood Culture - Preliminary No growth in 1 day 04/23/18 21:45 Blood - Peripheral Aerobic Blood Culture - Preliminary No growth in 3 days 04/23/18 21:45 Blood - Peripheral Anaerobic Blood Culture - Preliminary No growth in 3 days 04/23/18 21:50 Blood - Line Aerobic Blood Culture - Preliminary No growth in 3 days 04/23/18 21:50 Blood - Line Anaerobic Blood Culture - Preliminary No growth in 3 days 04/23/18 14:27 Blood - Peripheral Aerobic Blood Culture - Preliminary No growth in 3 days 04/23/18 14:27 Blood - Peripheral Anaerobic Blood Culture - Preliminary No growth in 3 days 04/23/18 11:50 Blood - Line Aerobic Blood Culture - Preliminary No growth in 3 days 04/23/18 11:50 Blood - Line Anaerobic Blood Culture - Preliminary No growth in 3 days Lab - Hematology Results 04/25/18 04/26/18 05:00 05:05 WBC 0.1 L 0.1 L RBC 2.53 L 2.32 L Hgb 7.4 L 6.8 L* Hct 21.1 L 19.2 L* MCV 83.3 82.8 MCH 29.2 29.3 MCHC 35.1 35.4 RDW 15.5 14.9 Plt Count 18 L* 13 L* MPV 7.7 7.9 Prelim Diff (Auto) Manual diff required Slide review pending WBC Differential Manual diff final Manual diff final Seg Neuts % (Manual) 0 L Lymphocytes % (Manual) 100 H 100 H Abs Neuts (Manual) 0.0 L* 0.0 L* Differential Comment . . Platelet Estimate Rare L Rare L Platelet Morphology Normal Normal Lab - Chemistry Results 04/26/18 04/26/18 05:05 05:05 Sodium 133 L Potassium 4.0 Chloride 99 Carbon Dioxide 23.3 Anion Gap 11 BUN 7 Creatinine 0.58 L Estimated GFR Greater than 89 Random Glucose 107 H Calcium 8.7 Phosphorus 3.0 Magnesium 2.2 Total Bilirubin 1.7 H AST Less than 3 L ALT 39 Alkaline Phosphatase 101 Total Protein 6.6 Albumin 2.4 L TSH 1.550 Free T4 1.20 Imaging: ITS Impressions Face CT 04/23/18 00:00 CONCLUSION: 1. No acute fracture. 2. No soft tissue abnormality. Chest X-Ray 04/23/18 21:13 CONCLUSION: Right central line in superior vena cava. No active disease. Physical Exam: PHYSICAL EXAMINATION: GENERAL: No acute distress. Awake and alert and oriented. HEENT: Head atraumatic and normocephalic. Extraocular muscles are intact. Pupils reactive to light. No icterus. No conjunctival erythema. Nose: No drainage. Oropharynx: Erosive changes at the base of the teeth anteriorly has ulcerations at the gumline and white exudate. NECK: Supple without adenopathy. LUNGS: Decreased breath sounds HEART: Regular S1 and S2. No murmurs. No rubs. No gallops. ABDOMEN: Bowel sounds present, obese, soft. No tenderness. EXTREMITIES: No clubbing, cyanosis or edema. SKIN: No rash. NEUROLOGIC: Cranial nerves II-XII intact. PSYCHIATRIC: Calm , cooperative. Interactive. Assessment and Plan - Plan IMPRESSION: 1. Neutropenic fever. Cultures negative. WBC markedly decreased. 2. Acute myeloid leukemia. Post chemo. 3. Gingivitis. RECOMMENDATIONS: 1. Continue cefepime. 2. Continue vancomycin. 3. Continue acyclovir for possible viral associated gingivitis. 4. Add Diflucan and Nystatin Swish and swallow. 5. Monitor temps. 6. Monitor for signs of a foci of infection.
[2018-04-26] MEDS: Nystatin Liq 500,000 UNIT/5 ML UDC SWISH-SWAL SCH ×3 (13:38→20:43)
[2018-04-26] MEDS ORDERED: Aluminum/Magnesium/Simethacone Susp 30 ML UDC PO ONE (14:54)
--- NOTE | 2018-04-26 15:29 | P.PNIM ---
Subjective Interval history: 7-9 Follow up for AML and neutropenic fever. Patient is doing well. He reports no jaw pain anymore but complains of upper lip swelling. No complains of respiratory compromise. T-max 102F. 7-10 IN neutropenic precautions Had fevers Remains on antibiotics Has some abdominal pain on and off Discussed with patient and RN and case management and oncology A.m. labs 7-11 STILL HAVING SOME ABDOMINAL PAIN ANTIBIOTICS ADJUSTED BY ID STILL NO RECOVERY OF NEUTROPHIL COUNTS DW RN AND PT AND CM CONTINUE CURRENT TREATMENTS TRANSFUSE PER ONCOLOGY AM LABS Physical Exam Vital signs: Vital Signs 04/25/18 16:00 04/25/18 17:31 04/25/18 18:44 Temperature 101.4 F H Pulse Rate 94 H 91 H Respiratory Rate 20 Blood Pressure 148/82 H Pulse Oximetry 98 99 04/25/18 20:00 04/25/18 20:07 04/26/18 00:00 Temperature 98.2 F 102 F H Pulse Rate 105 H 98 H 108 H Respiratory Rate 18 18 Blood Pressure 146/86 H 131/75 Pulse Oximetry 98 98 04/26/18 00:06 04/26/18 04:00 04/26/18 05:05 Temperature 100.1 F H Pulse Rate 95 H 84 95 H Respiratory Rate 16 Blood Pressure 135/78 Pulse Oximetry 98 04/26/18 07:45 04/26/18 08:50 04/26/18 10:14 Temperature 98.7 F 98.6 F Pulse Rate 112 H 91 H 92 H Respiratory Rate 20 18 Blood Pressure 145/80 H 126/78 Pulse Oximetry 98 98 04/26/18 10:25 04/26/18 10:45 04/26/18 11:00 Temperature 99.1 F 99.1 F Pulse Rate 91 H 89 Respiratory Rate 20 20 18 Blood Pressure 122/71 139/71 Pulse Oximetry 98 99 04/26/18 12:00 04/26/18 14:53 04/26/18 14:56 Temperature 99.4 F Pulse Rate 75 Respiratory Rate 18 Blood Pressure 137/76 Pulse Oximetry 98 Intake & Output 04/25/18 04/26/18 04/26/18 18:59 06:59 18:59 Intake Total 615 / 615 3160 / 3160 1295 / 1295 Output Total 650 / 650 2200 / 2200 Balance -35 / -35 960 / 960 1295 / 1295 Weight 105.8 kg Intake: IV 615 / 615 760 / 760 650 / 650 Maxipime Inj 2,000 MG In NS Inj 100 / 100 200 / 200 100 / 100 100 ML @ 200 mls/hr IV.SIG Q8H [facility] Rx#:[id number] Vancomycin Inj 1,500 MG In NS 515 / 515 560 / 560 550 / 550 Inj 500 ML @ 250 mls/hr IV.SIG Q12HR [facility] Rx#:[id number] Oral 2400 / 2400 Intake (Blood Product) Amt 645 / 645 Plt Pheresis Leukored/ Irr 245 / 245 Unit [id number] Rbc As-3 Leukoreduced Irrad 400 / 400 Unit [id number] Output: Urine 650 / 650 2200 / 2200 Other: Date of Last Bowel Movement 04/24/18 04/24/18 04/25/18 # Bowel Movements 2 Narrative: GENERAL: Awake alert and oriented 3 talkative and cooperative SKIN: Warm and dry. HEAD: Normocephalic. Atraumatic EYES: No scleral icterus. No injection or drainage. NECK: Supple, trachea midline. No JVD or lymphadenopathy. CARDIOVASCULAR: Regular rate and rhythm without murmurs, gallops, or rubs. S1- S2 no S3 or S4 RESPIRATORY: Breath sounds equal bilaterally. No accessory muscle use. GASTROINTESTINAL: Abdomen soft, non-tender, nondistended. MUSCULOSKELETAL: No cyanosis, or edema. BACK: Nontender without obvious deformity. No CVA tenderness. Insight and judgment is good Mood and behaviors appropriate Results - Labs CBC & Chem 7: 04/26/18 05:05 04/26/18 05:05 Laboratory Results - last 24 hr 04/26/18 04/26/18 04/26/18 05:05 05:05 05:05 WBC 0.1 L RBC 2.32 L Hgb 6.8 L* Hct 19.2 L* MCV 82.8 MCH 29.3 MCHC 35.4 RDW 14.9 Plt Count 13 L* MPV 7.9 Prelim Diff (Auto) Slide review pending WBC Differential Manual diff final Lymphocytes % (Manual) 100 H Abs Neuts (Manual) 0.0 L* Differential Comment . Platelet Estimate Rare L Platelet Morphology Normal Sodium 133 L Potassium 4.0 Chloride 99 Carbon Dioxide 23.3 Anion Gap 11 BUN 7 Creatinine 0.58 L Estimated GFR Greater than 89 Random Glucose 107 H Calcium 8.7 Phosphorus 3.0 Magnesium 2.2 Total Bilirubin 1.7 H AST Less than 3 L ALT 39 Alkaline Phosphatase 101 Total Protein 6.6 Albumin 2.4 L TSH 1.550 Free T4 1.20 Vancomycin Trough Blood Type Antibody Screen MTS Gel Crossmatch Bld Prod Order Comment 04/26/18 04/26/18 06:15 09:25 WBC RBC Hgb Hct MCV MCH MCHC RDW Plt Count MPV Prelim Diff (Auto) WBC Differential Lymphocytes % (Manual) Abs Neuts (Manual) Differential Comment Platelet Estimate Platelet Morphology Sodium Potassium Chloride Carbon Dioxide Anion Gap BUN Creatinine Estimated GFR Random Glucose Calcium Phosphorus Magnesium Total Bilirubin AST ALT Alkaline Phosphatase Total Protein Albumin TSH Free T4 Vancomycin Trough 5.4 Blood Type O Positive Antibody Screen Negative MTS Gel Crossmatch See Detail Bld Prod Order Comment Microbiology 04/25/18 19:15 Blood - Peripheral Aerobic Blood Culture - Preliminary No growth in 1 day 04/25/18 19:15 Blood - Peripheral Anaerobic Blood Culture - Preliminary No growth in 1 day 04/23/18 21:45 Blood - Peripheral Aerobic Blood Culture - Preliminary No growth in 3 days 04/23/18 21:45 Blood - Peripheral Anaerobic Blood Culture - Preliminary No growth in 3 days 04/23/18 21:50 Blood - Line Aerobic Blood Culture - Preliminary No growth in 3 days 04/23/18 21:50 Blood - Line Anaerobic Blood Culture - Preliminary No growth in 3 days 04/23/18 14:27 Blood - Peripheral Aerobic Blood Culture - Preliminary No growth in 3 days 04/23/18 14:27 Blood - Peripheral Anaerobic Blood Culture - Preliminary No growth in 3 days 04/23/18 11:50 Blood - Line Aerobic Blood Culture - Preliminary No growth in 3 days 04/23/18 11:50 Blood - Line Anaerobic Blood Culture - Preliminary No growth in 3 days - Imaging ITS Impressions Face CT 04/23/18 00:00 CONCLUSION: 1. No acute fracture. 2. No soft tissue abnormality. Chest X-Ray 04/23/18 21:13 CONCLUSION: Right central line in superior vena cava. No active disease. - Procedures BM biopsy Leal catheter placement Echo 04/14/2018 The left ventricular systolic function is hyperdynamic with an estimated ejection fraction in the range of 65- 70%. Normal left ventricular size. Wall thickness is normal. No regional wall motion abnormalities are present. Trace mitral valve regurgitation. The left ventricular systolic function is hyperdynamic with an estimated ejection fraction in the range of 65- 70%. Normal left ventricular size. Wall thickness is normal. No regional wall motion abnormalities are present. Trace mitral valve regurgitation. The estimated pulmonary arterial pressure is 30.6 mmHg. Assessment and Plan - Assessment (1) AML (acute myeloid leukemia) Code(s): C92.00 - Acute myeloblastic leukemia, not having achieved remission Status: Acute - Plan Mr. Hall is a pleasant 27-year-old male who was admitted on 2017 due to generalized weakness. His hemoglobin was 3.3 and platelet 30 on admission. Hematology oncology was consulted for pancytopenia. Patient was eventually diagnosed with AML. Hematology oncology started treatment for AML. Acute myeloid leukemia -Confirmed with bone marrow biopsy on 04/13/2018. -Patient has received induction therapy 7+3 chemotherapy. Currently on Cytarabine. Tolerating chemotherapy well. -Hemoglobin 7.1, WBC 0.1, platelets 17K on 04/23/2018. Neutrophil count essentially zero on 04/22/2018. TRANSFUSION PER ONCOLOGY Neutropenic fever -Urinalysis, chest x-ray unremarkable. Continue cefepime 2 g every 8 hours. -Being seen by infectious disease Jaw pain -CT scan shows no evidence of any necrosis or other pathology. Diarrhea -C. difficile PCR negative. MUCOSITIS ON DIFLUCAN AND NYSTATIN SWISH AND SWLLOW History of seizure -continue seizure precautions. Full code. SCDs, Ambulation. A.m. labs Code Status: FULL CODE Discussed Condition With: GADIEL RN AND PT AND CM Discharge Planning: Pending clearance by all (1) AML (acute myeloid leukemia) Qualifiers: Leukemia Active/Remission status: without remission Qualified Code(s): C92.00 - Acute myeloblastic leukemia, not having achieved remission
[2018-04-26 17:02] LABS: Hemoglobin A1c 5.9 % (4.3-6.0)
[2018-04-26] MEDS: Dextrose 5%/NaCl 0.9% Inj 1,000 ML IV.CONT SCH (20:41)
[2018-04-27] MEDS: Acetaminophen 325 MG Tablet PO PRN ×4 (01:11→20:31)
[2018-04-27] MEDS: Vancomycin Inj 1,500 MG in Sodium Chlor 0.9% Inj 500 ML IV.SIG SCH ×4 (03:35→21:31)
[2018-04-27] MEDS: Acyclovir 200 MG Capsule PO SCH ×3 (05:29→21:31)
[2018-04-27 07:37] LABS: Mean Corpuscular HGB Conc 35.1 % (32.0-36.0); Mean Corpuscular Hemoglobin 29.7 pg (27.0-34.0); Mean Corpuscular Volume 84.6 fL (80.0-100.0); Mean Platelet Volume 7.6 fL (7.0-11.0); Red Blood Count 2.33 mil/mm3 (4.50-5.90); White Blood Count 0.1 th/mm3 (4.0-11.0)
[2018-04-27 07:46] LABS: Hematocrit 19.7 % (39.0-51.0); Hemoglobin 6.9 gm/dL (13.0-17.0)
[2018-04-27 07:47] LABS: Platelet Count 13 th/mm3 (150-450)
[2018-04-27 07:50] LABS: Albumin 2.1 g/dL (3.4-5.0); Anion Gap 11 meq/L (5-15); Aspartate Aminotransferase 7 U/L (15-37); Blood Urea Nitrogen 6 mg/dL (7-18); Calcium 8.4 mg/dL (8.5-10.1); Chloride 102 meq/L (98-107); Glucose,Random 106 mg/dL (74-106); Magnesium 2.2 mg/dL (1.5-2.5); Potassium 3.5 meq/L (3.5-5.1)
[2018-04-27 07:53] LABS: Alkaline Phosphatase 102 U/L (45-117); Total Protein 6.2 g/dL (6.4-8.2)
[2018-04-27 08:07] LABS: Alanine Aminotransferase 29 U/L (12-78); Carbon Dioxide 20.6 meq/L (21.0-32.0); Glomerular Filtration Rate Greater Than 89 mL/min (>89); Sodium 134 meq/L (136-145)
[2018-04-27] MEDS ORDERED: Pharmacy Ordered Lab Info OTHER ONE ×2 (08:45→14:45)
[2018-04-27 08:59] LABS: Lymphocytes 100 % (9-44)
[2018-04-27 09:03] LABS: Platelet Estimate Rare (Normal)
[2018-04-27 09:04] LABS: Platelet Morphology Normal (Normal)
[2018-04-27] MEDS: Nystatin/Diphenhydramine/Lidocaine Mouthwash (Adult) 120 ML Botttle SWISH-SWAL SCH ×4 (09:05→21:29)
[2018-04-27] MEDS: Nystatin Liq 500,000 UNIT/5 ML UDC SWISH-SWAL SCH ×4 (09:10→21:29)
--- NOTE | 2018-04-27 09:24 | CT ---
EXAM DATE: 04/26/2018 8:03 PM EDT AGE/SEX: 27 years / Male INDICATIONS: Diffuse upper abdomen pain with vomiting. CLINICAL DATA: This is the patient's initial encounter. Patient reports that signs and symptoms have been present for 1 day and indicates a pain score of 3/10. MEDICAL/SURGICAL HISTORY: . Acute myeloid leukemia, Febrile neutropenia. None. RADIATION DOSE: 15.65 CTDI (mGy) COMPARISON: No prior exams available for comparison. TECHNIQUE: Multiple contiguous axial images were obtained through the abdomen. Images were obtained using multiple row detector helical technique. Using automated exposure control and adjustment of the mA and/or kV according to patient size, radiation dose was kept as low as reasonably achievable to o btain optimal diagnostic quality images. DICOM format image data is available electronically for rev iew and comparison. FINDINGS: Lower Lungs: The visualized lower lungs are clear. Liver: The liver has a homogeneous density without space-occupying lesion. There is no dilation of th e biliary tree. Spleen: Homogeneous density without enlargement. Pancreas: Unremarkable without mass or calcification. Kidneys: Normal in size and shape. No evidence of mass or hydronephrosis. Adrenal Glands: Unremarkable. Aorta: The aorta and proximal iliac vessels are grossly unremarkable without aneurysmal dilation. Bowel/Mesentery: There is some questionable thickening of the proximal transverse colon. Metastasis is likely secondary to lack of distention. Surrounding inflammatory change is not seen. Remaining asp ect of the bowel are normal. Abdominal Wall: Intact. Retroperitoneum: No evidence of adenopathy in the retrocrural, para-aortic, or deep pelvic regions. Bladder: Contours are smooth. Reproductive Organs: No abnormal masses or calcifications seen. Inguinal: The inguinal region is unremarkable without evidence of adenopathy. Bony Structures: Unremarkable. CONCLUSION: 1. Essentially negative CT of the abdomen and pelvis. There is a proximal transverse colon appears s omewhat thickened but this is likely secondary to lack of distention versus less likely colitis. Electronically signed by: Jerry Morris MD 04/27/2018 9:23 AM EDT
--- NOTE | 2018-04-27 10:44 | P.PNIM ---
Subjective Interval history: 7-9 Follow up for AML and neutropenic fever. Patient is doing well. He reports no jaw pain anymore but complains of upper lip swelling. No complains of respiratory compromise. T-max 102F. 7-10 IN neutropenic precautions Had fevers Remains on antibiotics Has some abdominal pain on and off Discussed with patient and RN and case management and oncology A.m. labs - STILL HAVING SOME ABDOMINAL PAIN ANTIBIOTICS ADJUSTED BY ID STILL NO RECOVERY OF NEUTROPHIL COUNTS DW RN AND PT AND CM CONTINUE CURRENT TREATMENTS TRANSFUSE PER ONCOLOGY AM LABS - PATIENT HAD SOME NAUSEA TODAY TO GET BLOOD TRANSFUSION WILL GIVE IV BENADRYL AND IV TYLENOL PRIOR TO TRANSFUSION DW RN AND PT Physical Exam Vital signs: Vital Signs 04/26/18 10:45 04/26/18 11:00 04/26/18 12:00 Temperature 99.1 F 99.1 F Pulse Rate 91 H 89 75 Respiratory Rate 20 18 Blood Pressure 122/71 139/71 Pulse Oximetry 98 99 04/26/18 14:53 04/26/18 14:56 04/26/18 16:00 Temperature 99.4 F Pulse Rate 86 Respiratory Rate 18 Blood Pressure 137/76 Pulse Oximetry 98 04/26/18 17:48 04/26/18 18:06 04/26/18 18:52 Temperature 99.2 F Pulse Rate 90 101 H Respiratory Rate 20 Blood Pressure 139/76 Pulse Oximetry 99 99 04/26/18 19:34 04/27/18 00:04 04/27/18 00:29 Temperature 102.4 F H 100.6 F H Pulse Rate 107 H 96 H 88 Respiratory Rate 20 20 Blood Pressure 144/73 H 128/62 Pulse Oximetry 96 99 04/27/18 04:06 04/27/18 05:34 Temperature 99.9 F H Pulse Rate 86 88 Respiratory Rate 19 Blood Pressure 127/64 Pulse Oximetry 98 Intake & Output 04/26/18 04/27/18 04/27/18 18:59 06:59 18:59 Intake Total 1810 / 1810 1930 / 1930 Output Total 450 / 450 500 / 500 Balance 1360 / 1360 1430 / 1430 Weight 105.5 kg Intake: IV 1165 / 1165 1230 / 1230 Maxipime Inj 2,000 MG In NS Inj 100 / 100 200 / 200 100 ML @ 200 mls/hr IV.SIG Q8H [facility] Rx#:[id number] Vancomycin Inj 1,500 MG In NS 1065 / 1065 1030 / 1030 Inj 500 ML @ 250 mls/hr IV.SIG Q6H [facility] Rx#:[id number] Oral 700 / 700 Intake (Blood Product) Amt 645 / 645 Plt Pheresis Leukored/ Irr 245 / 245 Unit [id number] Rbc As-3 Leukoreduced Irrad 400 / 400 Unit [id number] Output: Urine 450 / 450 500 / 500 Other: # Voids 3 4 Date of Last Bowel Movement 04/26/18 04/26/18 # Emeses 1 Narrative: GENERAL: Awake alert and oriented 3 talkative and cooperative SKIN: Warm and dry. HEAD: Normocephalic. Atraumatic EYES: No scleral icterus. No injection or drainage. NECK: Supple, trachea midline. No JVD or lymphadenopathy. CARDIOVASCULAR: Regular rate and rhythm without murmurs, gallops, or rubs. S1- S2 no S3 or S4 RESPIRATORY: Breath sounds equal bilaterally. No accessory muscle use. GASTROINTESTINAL: Abdomen soft, non-tender, nondistended. MUSCULOSKELETAL: No cyanosis, or edema. BACK: Nontender without obvious deformity. No CVA tenderness. Insight and judgment is good Mood and behaviors appropriate Results - Labs CBC & Chem 7: 04/27/18 07:00 04/27/18 07:00 Laboratory Results - last 24 hr 04/26/18 04/26/18 04/27/18 05:05 06:15 07:00 WBC 0.1 L RBC 2.33 L Hgb 6.9 L* Hct 19.7 L* MCV 84.6 MCH 29.7 MCHC 35.1 RDW 15.0 Plt Count 13 L* MPV 7.6 Prelim Diff (Auto) Manual diff required WBC Differential Manual diff final Seg Neuts % (Manual) 0 L Lymphocytes % (Manual) 100 H Abs Neuts (Manual) 0.0 L* Differential Comment . Platelet Estimate Rare L Platelet Morphology Normal Sodium Potassium Chloride Carbon Dioxide Anion Gap BUN Creatinine Estimated GFR Random Glucose Hemoglobin A1c 5.9 Calcium Phosphorus Magnesium Total Bilirubin AST ALT Alkaline Phosphatase Total Protein Albumin Blood Type O Positive Antibody Screen Negative MTS Gel Crossmatch See Detail Bld Prod Order Comment 04/27/18 04/27/18 04/27/18 07:00 09:41 09:41 WBC RBC Hgb Hct MCV MCH MCHC RDW Plt Count MPV Prelim Diff (Auto) WBC Differential Seg Neuts % (Manual) Lymphocytes % (Manual) Abs Neuts (Manual) Differential Comment Platelet Estimate Platelet Morphology Sodium 134 L Potassium 3.5 Chloride 102 Carbon Dioxide 20.6 L Anion Gap 11 BUN 6 L Creatinine 0.49 L Estimated GFR Greater than 89 Random Glucose 106 Hemoglobin A1c Calcium 8.4 L Phosphorus 3.0 Magnesium 2.2 Total Bilirubin 2.8 H AST 7 L ALT 29 Alkaline Phosphatase 102 Total Protein 6.2 L Albumin 2.1 L Blood Type Antibody Screen MTS Gel Crossmatch See Detail Bld Prod Order Comment Microbiology 04/25/18 19:15 Blood - Peripheral Aerobic Blood Culture - Preliminary No growth in 1 day 04/25/18 19:15 Blood - Peripheral Anaerobic Blood Culture - Preliminary No growth in 1 day 04/23/18 21:45 Blood - Peripheral Aerobic Blood Culture - Preliminary No growth in 3 days 04/23/18 21:45 Blood - Peripheral Anaerobic Blood Culture - Preliminary No growth in 3 days 04/23/18 21:50 Blood - Line Aerobic Blood Culture - Preliminary No growth in 3 days 04/23/18 21:50 Blood - Line Anaerobic Blood Culture - Preliminary No growth in 3 days 04/23/18 14:27 Blood - Peripheral Aerobic Blood Culture - Preliminary No growth in 3 days 04/23/18 14:27 Blood - Peripheral Anaerobic Blood Culture - Preliminary No growth in 3 days 04/23/18 11:50 Blood - Line Aerobic Blood Culture - Preliminary No growth in 3 days 04/23/18 11:50 Blood - Line Anaerobic Blood Culture - Preliminary No growth in 3 days - Imaging Impressions Abdomen/Pelvis CT 04/26/18 00:00 CONCLUSION: 1. Essentially negative CT of the abdomen and pelvis. There is a proximal transverse colon appears somewhat thickened but this is likely secondary to lack of distention versus less likely colitis. - Procedures BM biopsy Leal catheter placement Echo 04/14/2018 The left ventricular systolic function is hyperdynamic with an estimated ejection fraction in the range of 65- 70%. Normal left ventricular size. Wall thickness is normal. No regional wall motion abnormalities are present. Trace mitral valve regurgitation. The left ventricular systolic function is hyperdynamic with an estimated ejection fraction in the range of 65- 70%. Normal left ventricular size. Wall thickness is normal. No regional wall motion abnormalities are present. Trace mitral valve regurgitation. The estimated pulmonary arterial pressure is 30.6 mmHg. Assessment and Plan - Assessment (1) AML (acute myeloid leukemia) Code(s): C92.00 - Acute myeloblastic leukemia, not having achieved remission Status: Acute - Plan Mr. Hall is a pleasant 27-year-old male who was admitted on 2017 due to generalized weakness. His hemoglobin was 3.3 and platelet 30 on admission. Hematology oncology was consulted for pancytopenia. Patient was eventually diagnosed with AML. Hematology oncology started treatment for AML. Acute myeloid leukemia -Confirmed with bone marrow biopsy on 04/13/2018. -Patient has received induction therapy 7+3 chemotherapy. Currently on Cytarabine. Tolerating chemotherapy well. -Hemoglobin 7.1, WBC 0.1, platelets 17K on 04/23/2018. Neutrophil count essentially zero on 04/22/2018. TRANSFUSION PER ONCOLOGY ON 04-27 WILL GIVE IV TYLENOL AND IV BENADRYL Neutropenic fever -Urinalysis, chest x-ray unremarkable. Continue cefepime 2 g every 8 hours. -Being seen by infectious disease Jaw pain -CT scan shows no evidence of any necrosis or other pathology. Diarrhea -C. difficile PCR negative. MUCOSITIS ON DIFLUCAN AND NYSTATIN SWISH AND SWLLOW History of seizure -continue seizure precautions. Full code. SCDs, Ambulation. CONTINUE CURRENT TREATMENTS A.m. labs Code Status: FULL CODE Discussed Condition With: RN AND CM AND PT Discharge Planning: Pending clearance by all (1) AML (acute myeloid leukemia) Qualifiers: Leukemia Active/Remission status: without remission Qualified Code(s): C92.00 - Acute myeloblastic leukemia, not having achieved remission
[2018-04-27] MEDS: Dextrose 5%/NaCl 0.9% Inj 1,000 ML IV.CONT SCH (10:58)
[2018-04-27] MEDS: Chlorhexidine Gluconate 0.12% Liq 15 ML UDC SWISH-SPIT SCH ×2 (11:06→21:29)
[2018-04-27] MEDS: Heparin Central Flush 100 UNIT/ML 5 ML Vial IV.FLUSH SCH (11:06)
--- NOTE | 2018-04-27 15:59 | P.PNID ---
Subjective Remarks: Patient says he feels okay. Notes abdominal discomfort is better. No chills. Still has fever spikes. No dysuria, cough or SOB. Cultures negative. 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 The patient has undergone chemotherapy with daunorubicin plus cytarabine. Antibiotics: Acyclovir Fluconazole (Diflucan) 200 mg PO DAILY [facility] Cefepime (Vancomycin Consult Pharmacy) Vancomycin Lines: Leal catheter without evidence of infection. Allergies/Adverse Reactions: Allergies No Known Allergies Allergy (Unknown, Uncoded 04/12/18 14:54) Objective Vital Signs 04/26/18 16:00 04/26/18 17:48 04/26/18 18:06 Temperature 99.2 F Pulse Rate 86 90 Respiratory Rate 20 Blood Pressure 139/76 Pulse Oximetry 99 99 04/26/18 18:52 04/26/18 19:34 04/27/18 00:04 Temperature 102.4 F H Pulse Rate 101 H 107 H 96 H Respiratory Rate 20 Blood Pressure 144/73 H Pulse Oximetry 96 04/27/18 00:29 04/27/18 04:06 04/27/18 05:34 Temperature 100.6 F H 99.9 F H Pulse Rate 88 86 88 Respiratory Rate 20 19 Blood Pressure 128/62 127/64 Pulse Oximetry 99 98 04/27/18 09:03 04/27/18 12:18 04/27/18 13:08 Temperature 101.6 F H 102.1 F H 99.9 F H Pulse Rate 106 H 103 H 109 H Respiratory Rate 20 20 16 Blood Pressure 115/59 L 128/70 135/69 Pulse Oximetry 96 97 97 04/27/18 15:32 Temperature 99.9 F H Pulse Rate 79 Respiratory Rate 18 Blood Pressure 130/67 Pulse Oximetry 97 Intake & Output 04/26/18 04/27/18 04/27/18 18:59 06:59 18:59 Intake Total 1810 / 1810 1930 / 1930 1809 / 1809 Output Total 450 / 450 500 / 500 Balance 1360 / 1360 1430 / 1430 180 / 1809 Weight 105.5 kg Intake: IV 1165 / 1165 1230 / 1230 1515 / 1515 D5W/Normal Saline Inj 1,000 ML 1000 / 1000 @ 84 mls/hr IV.CONT .[id number] [facility] Rx#:[id number] Maxipime Inj 2,000 MG In NS Inj 100 / 100 200 / 200 100 ML @ 200 mls/hr IV.SIG Q8H [facility] Rx#:[id number] Vancomycin Inj 1,500 MG In NS 1065 / 1065 1030 / 1030 515 / 515 Inj 500 ML @ 250 mls/hr IV.SIG Q6H [facility] Rx#:[id number] Oral 700 / 700 Intake (Blood Product) Amt 645 / 645 294 / 294 Plt Pheresis Leukored/ Irr 245 / 245 Unit [id number] Plt Pheresis Leukored/ Irr 294 / 294 Unit [id number] Rbc As-3 Leukoreduced Irrad 400 / 400 Unit [id number] Rbc As-3 Leukoreduced Irrad 0 / 0 Unit [id number] Output: Urine 450 / 450 500 / 500 Other: # Voids 3 4 Date of Last Bowel Movement 04/26/18 04/26/18 # Emeses 1 04/27/18 13:40 Blood - Other Aerobic Blood Culture - Pending 04/27/18 13:40 Blood - Other Anaerobic Blood Culture - Pending 04/25/18 19:15 Blood - Peripheral Aerobic Blood Culture - Preliminary No growth in 2 days 04/25/18 19:15 Blood - Peripheral Anaerobic Blood Culture - Preliminary No growth in 2 days 04/23/18 21:45 Blood - Peripheral Aerobic Blood Culture - Preliminary No growth in 4 days 04/23/18 21:45 Blood - Peripheral Anaerobic Blood Culture - Preliminary No growth in 4 days 04/23/18 21:50 Blood - Line Aerobic Blood Culture - Preliminary No growth in 4 days 04/23/18 21:50 Blood - Line Anaerobic Blood Culture - Preliminary No growth in 4 days 04/23/18 14:27 Blood - Peripheral Aerobic Blood Culture - Preliminary No growth in 4 days 04/23/18 14:27 Blood - Peripheral Anaerobic Blood Culture - Preliminary No growth in 4 days 04/23/18 11:50 Blood - Line Aerobic Blood Culture - Preliminary No growth in 4 days 04/23/18 11:50 Blood - Line Anaerobic Blood Culture - Preliminary No growth in 4 days 04/27/18 03:45 Blood - Peripheral Aerobic Blood Culture - Pending 04/27/18 03:45 Blood - Peripheral Anaerobic Blood Culture - Pending 04/27/18 01:00 Blood - Line Aerobic Blood Culture - Pending 04/27/18 01:00 Blood - Line Anaerobic Blood Culture - Pending Lab - Hematology Results 04/26/18 04/27/18 05:05 07:00 WBC 0.1 L 0.1 L RBC 2.32 L 2.33 L Hgb 6.8 L* 6.9 L* Hct 19.2 L* 19.7 L* MCV 82.8 84.6 MCH 29.3 29.7 MCHC 35.4 35.1 RDW 14.9 15.0 Plt Count 13 L* 13 L* MPV 7.9 7.6 Prelim Diff (Auto) Slide review pending Manual diff required WBC Differential Manual diff final Manual diff final Seg Neuts % (Manual) 0 L Lymphocytes % (Manual) 100 H 100 H Abs Neuts (Manual) 0.0 L* 0.0 L* Differential Comment . . Platelet Estimate Rare L Rare L Platelet Morphology Normal Normal Lab - Chemistry Results 04/26/18 04/26/18 04/26/18 05:05 05:05 05:05 Sodium 133 L Potassium 4.0 Chloride 99 Carbon Dioxide 23.3 Anion Gap 11 BUN 7 Creatinine 0.58 L Estimated GFR Greater than 89 Random Glucose 107 H Hemoglobin A1c 5.9 Calcium 8.7 Phosphorus 3.0 Magnesium 2.2 Total Bilirubin 1.7 H AST Less than 3 L ALT 39 Alkaline Phosphatase 101 Total Protein 6.6 Albumin 2.4 L TSH 1.550 Free T4 1.20 04/27/18 07:00 Sodium 134 L Potassium 3.5 Chloride 102 Carbon Dioxide 20.6 L Anion Gap 11 BUN 6 L Creatinine 0.49 L Estimated GFR Greater than 89 Random Glucose 106 Hemoglobin A1c Calcium 8.4 L Phosphorus 3.0 Magnesium 2.2 Total Bilirubin 2.8 H AST 7 L ALT 29 Alkaline Phosphatase 102 Total Protein 6.2 L Albumin 2.1 L TSH Free T4 Imaging: ITS Impressions Face CT 04/23/18 00:00 CONCLUSION: 1. No acute fracture. 2. No soft tissue abnormality. Chest X-Ray 04/23/18 21:13 CONCLUSION: Right central line in superior vena cava. No active disease. Abdomen/Pelvis CT 04/26/18 00:00 CONCLUSION: 1. Essentially negative CT of the abdomen and pelvis. There is a proximal transverse colon appears somewhat thickened but this is likely secondary to lack of distention versus less likely colitis. Physical Exam: PHYSICAL EXAMINATION: GENERAL: No acute distress. Awake and alert and oriented. HEENT: Head atraumatic and normocephalic. Extraocular muscles are intact. Pupils reactive to light. No icterus. No conjunctival erythema. Nose: No drainage. Oropharynx: white exudate at the base of the teeth anteriorly has ulcerations at the gumline. NECK: Supple without adenopathy. LUNGS: Decreased breath sounds HEART: Regular S1 and S2. No murmurs. No rubs. No gallops. ABDOMEN: Bowel sounds present, obese, soft. No tenderness. EXTREMITIES: No clubbing, cyanosis or edema. SKIN: No rash. NEUROLOGIC: Cranial nerves II-XII intact. PSYCHIATRIC: Calm , cooperative. Interactive. Assessment and Plan - Plan IMPRESSION: 1. Neutropenic fever. Cultures negative. WBC remained markedly decreased. Continues to have temperature spikes. Cultures negative. 2. Acute myeloid leukemia. Post chemo. 3. Gingivitis. RECOMMENDATIONS: 1. Continue cefepime. 2. Continue vancomycin. 3. Continue acyclovir for possible viral associated gingivitis. 4. Continue Diflucan and Nystatin Swish and swallow. 5. Monitor temps. 6. Monitor for signs of a foci of infection.
--- NOTE | 2018-04-27 18:43 | P.PNONC ---
Subjective Interval history: No vomiting. My stomach still hurts a little. Objective Vital Signs/Intake & Output: Vital Signs 04/26/18 18:52 04/26/18 19:34 04/27/18 00:04 Temperature 102.4 F H Pulse Rate 101 H 107 H 96 H Respiratory Rate 20 Blood Pressure 144/73 H Pulse Oximetry 96 04/27/18 00:29 04/27/18 04:06 04/27/18 05:34 Temperature 100.6 F H 99.9 F H Pulse Rate 88 86 88 Respiratory Rate 20 19 Blood Pressure 128/62 127/64 Pulse Oximetry 99 98 04/27/18 09:03 04/27/18 12:18 04/27/18 13:08 Temperature 101.6 F H 102.1 F H 99.9 F H Pulse Rate 106 H 103 H 109 H Respiratory Rate 20 20 16 Blood Pressure 115/59 L 128/70 135/69 Pulse Oximetry 96 97 97 04/27/18 13:24 04/27/18 15:32 04/27/18 17:49 Temperature 100.7 F H 99.9 F H Pulse Rate 80 79 Respiratory Rate 16 18 Blood Pressure 136/75 130/67 Pulse Oximetry 98 97 97 Intake & Output 04/26/18 04/27/18 04/27/18 18:59 06:59 18:59 Intake Total 1810 / 1810 1930 / 1930 1809 / 1809 Output Total 450 / 450 500 / 500 Balance 1360 / 1360 1430 / 1430 1809 / 1809 Weight 105.5 kg Intake: IV 1165 / 1165 1230 / 1230 1515 / 1515 D5W/Normal Saline Inj 1,000 ML 1000 / 1000 @ 84 mls/hr IV.CONT .[id number] [facility] Rx#:[id number] Maxipime Inj 2,000 MG In NS Inj 100 / 100 200 / 200 100 ML @ 200 mls/hr IV.SIG Q8H [facility] Rx#:[id number] Vancomycin Inj 1,500 MG In NS 1065 / 1065 1030 / 1030 515 / 515 Inj 500 ML @ 250 mls/hr IV.SIG Q6H [facility] Rx#:[id number] Oral 700 / 700 Intake (Blood Product) Amt 645 / 645 294 / 294 Plt Pheresis Leukored/ Irr 245 / 245 Unit [id number] Plt Pheresis Leukored/ Irr 294 / 294 Unit [id number] Rbc As-3 Leukoreduced Irrad 400 / 400 Unit [id number] Rbc As-3 Leukoreduced Irrad 0 / 0 Unit [id number] Output: Urine 450 / 450 500 / 500 Other: # Voids 3 4 Date of Last Bowel Movement 04/26/18 04/26/18 # [place] 1 Result Diagrams: 04/27/18 07:00 04/27/18 07:00 Laboratory Results: Laboratory Results - last 24 hr 04/27/18 04/27/18 04/27/18 07:00 07:00 09:41 WBC 0.1 L RBC 2.33 L Hgb 6.9 L* Hct 19.7 L* MCV 84.6 MCH 29.7 MCHC 35.1 RDW 15.0 Plt Count 13 L* MPV 7.6 Prelim Diff (Auto) Manual diff required WBC Differential Manual diff final Seg Neuts % (Manual) 0 L Lymphocytes % (Manual) 100 H Abs Neuts (Manual) 0.0 L* Differential Comment . Platelet Estimate Rare L Platelet Morphology Normal Sodium 134 L Potassium 3.5 Chloride 102 Carbon Dioxide 20.6 L Anion Gap 11 BUN 6 L Creatinine 0.49 L Estimated GFR Greater than 89 Random Glucose 106 Calcium 8.4 L Phosphorus 3.0 Magnesium 2.2 Total Bilirubin 2.8 H AST 7 L ALT 29 Alkaline Phosphatase 102 Total Protein 6.2 L Albumin 2.1 L Vancomycin Trough MTS Gel Crossmatch Bld Prod Order Comment 04/27/18 04/27/18 09:41 15:03 WBC RBC Hgb Hct MCV MCH MCHC RDW Plt Count MPV Prelim Diff (Auto) WBC Differential Seg Neuts % (Manual) Lymphocytes % (Manual) Abs Neuts (Manual) Differential Comment Platelet Estimate Platelet Morphology Sodium Potassium Chloride Carbon Dioxide Anion Gap BUN Creatinine Estimated GFR Random Glucose Calcium Phosphorus Magnesium Total Bilirubin AST ALT Alkaline Phosphatase Total Protein Albumin Vancomycin Trough 15.9 H MTS Gel Crossmatch See Detail Bld Prod Order Comment Culture Results: Microbiology 04/25/18 19:15 Aerobic Blood Culture - Preliminary Blood - Peripheral No growth in 2 days Anaerobic Blood Culture - Preliminary No growth in 2 days 04/23/18 21:45 Aerobic Blood Culture - Preliminary Blood - Peripheral No growth in 4 days Anaerobic Blood Culture - Preliminary No growth in 4 days 04/23/18 21:50 Aerobic Blood Culture - Preliminary Blood - Line No growth in 4 days Anaerobic Blood Culture - Preliminary No growth in 4 days 04/23/18 14:27 Aerobic Blood Culture - Preliminary Blood - Peripheral No growth in 4 days Anaerobic Blood Culture - Preliminary No growth in 4 days 04/23/18 11:50 Aerobic Blood Culture - Preliminary Blood - Line No growth in 4 days Anaerobic Blood Culture - Preliminary No growth in 4 days Imaging Studies: Impressions Abdomen/Pelvis CT 04/26/18 00:00 CONCLUSION: 1. Essentially negative CT of the abdomen and pelvis. There is a proximal transverse colon appears somewhat thickened but this is likely secondary to lack of distention versus less likely colitis. Medications: Active Medications Generic Name Dose Route Start Last Admin Trade Name Freq PRN Reason Stop Dose Admin Acetaminophen 650 mg 04/16/18 00:00 04/27/18 15:52 Tylenol PO 650 mg Q4H PRN Administration TEMPERATURE > 100 F Hydrocodone Bitart/Acetaminophen 1 tab 04/23/18 11:51 04/25/18 18:45 [place] 7.5/325 PO 1 tab Q6H PRN Administration PAIN SCALE 6 TO 10 Acyclovir 400 mg 04/24/18 22:00 04/27/18 14:05 Zovirax PO 400 mg Q8HR [facility]MA Administration Chlorhexidine Gluconate 15 ml 04/23/18 21:00 04/27/18 11:06 Peridex 0.12% Liq SWISH-SPIT Not Given BID [facility]MA Diphenhydramine HCl 25 mg 04/24/18 09:00 04/26/18 09:09 Benadryl PO 25 mg Q4H PRN Administration SEE LABEL COMMENTS Diphenhydramine HCl 50 mg 04/27/18 10:37 04/27/18 11:16 Benadryl Inj IV.PUSH 50 mg Q6H PRN Administration blood transfusion Fluconazole 200 mg 04/26/18 13:00 04/27/18 09:10 Diflucan PO 200 mg DAILY [facility]MA Administration Heparin Sodium (Porcine) 0 unit 04/16/18 00:00 04/26/18 00:44 Heparin Central Flush IV.FLUSH 200 unit PRN PRN Administration Flush each lumen Heparin Sodium (Porcine) 0 unit 04/16/18 09:00 04/27/18 11:06 Heparin Central Flush IV.FLUSH Not Given DAILY [facility]MA Cefepime HCl 2,000 mg/ Sodium 100 mls @ 200 mls/hr 04/23/18 13:00 04/27/18 13 :52 Chloride IV.SIG 200 mls/hr Q8H [facility] Administration Vancomycin HCl 1,500 mg/ 515 mls @ 250 mls/hr 04/26/18 15:00 04/27/18 14:57 Sodium Chloride IV.SIG 250 mls/hr Q6H [facility] Administration Dextrose/Sodium Chloride 1,000 mls @ 84 mls/hr 04/26/18 19:00 04/27/18 10:58 D5w/Normal Saline Inj IV.CONT 04/27/18 18:48 84 mls/hr .[id number] G[facility]MA Administration Lidocaine HCl 15 ml 04/23/18 10:00 04/26/18 09:08 Xylocaine 2% Viscous SWISH-SPIT 15 ml Q4H PRN Administration PAIN SCALE 6 TO 10 Lorazepam 0.5 mg 04/26/18 08:54 04/26/18 09:10 Ativan Inj IV.PUSH 0.5 mg Q6H PRN Administration MILD NAUSEA Miscellaneous Information 1 each 04/16/18 00:00 04/16/18 13:22 Misc Nursing Information OTHER Not Given [id number] [facility] Morphine Sulfate 2 mg 04/16/18 00:00 04/23/18 12:56 Morphine Inj IV.PUSH 2 mg Q2H PRN Administration PAIN SCALE 6 TO 10 Multi-Ingredient Mouthwash/Gargle 5 ml 04/22/18 13:00 04/27/18 14:11 Magic Mouthwash Adult Liq SWISH-SWAL 5 ml QID [facility] Administration Nystatin 500,000 ml 04/26/18 13:00 04/27/18 14:05 Mycostatin Liq SWISH-SWAL 5 ml QID [facility]MA Administration Ondansetron HCl 4 mg 04/16/18 00:00 04/23/18 10:26 Zofran Inj IV.PUSH 4 mg Q6H PRN Administration NAUSEA OR VOMITING Pantoprazole Sodium 40 mg 04/16/18 09:00 04/27/18 09:10 Protonix PO 40 mg DAILY [facility]MA Administration Prochlorperazine Edisylate 5 mg 04/26/18 08:51 04/27/18 09:47 Compazine Inj IV.PUSH 5 mg Q6H PRN Administration MILD NAUSEA Sodium Chloride 0 ml 04/16/18 09:00 04/27/18 09:05 Ns Flush IV.FLUSH 5 ml DAILY [facility]MA Administration Sodium Chloride 0 ml 04/16/18 00:00 04/27/18 09:15 Ns Flush IV.FLUSH 5 ml PRN PRN Administration FLUSH AFTER USING IV ACCESS Temazepam 15 mg 04/23/18 21:00 04/23/18 22:40 Restoril PO 15 mg HS PRN Administration INSOMNIA Objective Remarks: GENERAL: Well-nourished, well-developed patient. SKIN: Warm and dry. HEAD: Normocephalic. EYES: No scleral icterus. No injection or drainage. NECK: Supple, trachea midline. No JVD or lymphadenopathy. LYMPHATIC: No adenopathy. CARDIOVASCULAR: Regular rate and rhythm without murmurs. RESPIRATORY: Breath sounds equal bilaterally. No accessory muscle use. GASTROINTESTINAL: Abdomen soft, benign but large. EXTREMITIES: No cyanosis, or edema. MUSCULOSKELETAL: Adequate muscle tone. NEUROLOGICAL: No obvious focal deficit. Awake, alert, and oriented x3. PSYCHIATRIC: Appropriate mood and affect; insight and judgment normal. Assessment/Plan (1) Pancytopenia due to antineoplastic chemotherapy Code(s): D61.810 - Antineoplastic chemotherapy induced pancytopenia; T45.1X5A - Adverse effect of antineoplastic and immunosuppressive drugs, initial encounter Status: Acute (2) AML (acute myeloid leukemia) Code(s): C92.00 - Acute myeloblastic leukemia, not having achieved remission Status: Acute - Plan 04/15 D1 Daunorubicin + Cytarabine 04/16: D2 Daunorubicin + Cytarabine 04/17: D3 Daunorubicin + Cytarabine 04/18: D4 Cytarabine. Afebrile. Tolerating chemo well. 04/19: D5 Cytarabine continue 04/20: D6 Cytarabine continues. 04/21: D7 Cytarabine continues. Afebrile, tolerating well. 04/22: D8 cytarabine. Afebrile, platelet transfusion this a.m. Now with jaw pain. 04/23: D9 Cytarabine completed overnight. Afebrile. Continued jaw pain. Diarrhea 3 x's/day, +n/v x's 1, + insomnia. 04/24: D10 febrile, T-max 102. Blood cultures pending. Currently on cefepime. ID and ENT consult. 04/25: D11 febrile, T-max 102.5F. Blood cultures no growth 2 days. Antibiotics per ID. ENT deferred consult to oral maxillofacial surgery. 1. Neutropenic fever. Continue to be febrile and neutropenic. Anticipate neutropenia to continue for another week. Antibiotic support per infectious disease. 2. Continue neutropenic precautions. 3. Abdominal pain. CT abdomen was performed. No ileus, no obstruction or mass. Patient feels better in the afternoon and willing to try some p.o. Anticipate start clear liquids and monitor for abdominal pain and vomiting. 4. Anemia and thrombocytopenia. Transfuse for hgb <7.0 and platelet <15K or symptoms. Hemoglobin 7.4, platelets 18 K. He will need transfusion today of red cells and platelets. 5. Lower jaw pain, and mucositis. ENT consultation appreciated. 6. Swollen gums, erosive gingivitis. Continue viscous lidocaine swish and spit as needed for pain. Continue chlorhexidine antibacterial rinse. Infectious disease has added acyclovir for possible viral associated gingivitis. 7. Continue Restoril as needed for insomnia. 8. Abdominal pain. Continue to monitor. Advance diet to clear. 9. We will arrange for the day #14 (04/28/18) bone marrow biopsy. Anticipate transfusion of platelets prior to CBC in a.m. 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 (2) AML (acute myeloid leukemia) Qualifiers: Leukemia Active/Remission status: without remission Qualified Code(s): C92.00 - Acute myeloblastic leukemia, not having achieved remission
[2018-04-28] MEDS: Vancomycin Inj 1,600 MG in Sodium Chlor 0.9% Inj 500 ML IV.SIG SCH ×4 (04:41→22:44)
[2018-04-28] MEDS: Acyclovir 200 MG Capsule PO SCH ×3 (05:47→22:00)
[2018-04-28 06:38] LABS: Hematocrit 21.1 % (39.0-51.0); Hemoglobin 7.4 gm/dL (13.0-17.0); Mean Corpuscular Hemoglobin 29.3 pg (27.0-34.0); Mean Corpuscular Volume 83.8 fL (80.0-100.0); Mean Platelet Volume 7.7 fL (7.0-11.0); Red Blood Count 2.52 mil/mm3 (4.50-5.90); Red Cell Distribution Width 15.3 % (11.6-17.2); White Blood Count 0.1 th/mm3 (4.0-11.0)
[2018-04-28 06:59] LABS: Alanine Aminotransferase 34 U/L (12-78); Anion Gap 12 meq/L (5-15); Aspartate Aminotransferase 16 U/L (15-37); Blood Urea Nitrogen 7 mg/dL (7-18); Calcium 8.3 mg/dL (8.5-10.1); Carbon Dioxide 21.8 meq/L (21.0-32.0); Chloride 103 meq/L (98-107); Glomerular Filtration Rate Greater Than 89 mL/min (>89); Glucose,Random 95 mg/dL (74-106); Phosphorus 3.1 mg/dL (2.5-4.9); Potassium 3.2 meq/L (3.5-5.1); Sodium 137 meq/L (136-145)
[2018-04-28 07:05] LABS: Alkaline Phosphatase 125 U/L (45-117); Platelet Count 19 th/mm3 (150-450); Total Protein 6.2 g/dL (6.4-8.2)
[2018-04-28 07:39] LABS: Lymphocytes 100 % (9-44); Platelet Estimate Rare (Normal); Platelet Morphology Normal (Normal)
[2018-04-28 07:40] LABS: RBC Morphology Normal (Normal)
[2018-04-28] MEDS: Heparin Central Flush 100 UNIT/ML 5 ML Vial IV.FLUSH SCH (09:15)
[2018-04-28] MEDS: Acetaminophen 325 MG Tablet PO PRN (09:19)
[2018-04-28] MEDS: Nystatin/Diphenhydramine/Lidocaine Mouthwash (Adult) 120 ML Botttle SWISH-SWAL SCH ×5 (09:22→22:46)
[2018-04-28] MEDS: Nystatin Liq 500,000 UNIT/5 ML UDC SWISH-SWAL SCH ×4 (09:23→22:08)
[2018-04-28] MEDS: Chlorhexidine Gluconate 0.12% Liq 15 ML UDC SWISH-SPIT SCH ×2 (09:23→22:47)
[2018-04-28] MEDS ORDERED: fentaNYL Citrate Inj 250 MCG/5 ML Ampul ONE (10:02)
--- NOTE | 2018-04-28 10:12 | P.PNONC ---
Subjective Interval history: Patient lying in bed, on the telephone with his mother. He is currently n.p.o. for bone marrow biopsy today, he states he is starving. He denies any further abdominal pain. He reports back pain. Objective Vital Signs/Intake & Output: Vital Signs 04/27/18 12:18 04/27/18 13:08 04/27/18 13:24 Temperature 102.1 F H 99.9 F H 100.7 F H Pulse Rate 103 H 109 H 80 Respiratory Rate 20 16 16 Blood Pressure 128/70 135/69 136/75 Pulse Oximetry 97 97 98 04/27/18 14:05 04/27/18 15:32 04/27/18 17:49 Temperature 97.8 F 99.9 F H Pulse Rate 105 H 79 Respiratory Rate 16 18 Blood Pressure 149/82 H 130/67 Pulse Oximetry 98 97 97 04/27/18 19:06 04/27/18 20:00 04/27/18 23:59 Temperature 100.1 F H 100.6 F H Pulse Rate 92 H 88 89 Respiratory Rate 20 18 Blood Pressure 140/71 125/70 Pulse Oximetry 98 98 04/28/18 00:07 04/28/18 04:19 04/28/18 05:41 Temperature 100.3 F H Pulse Rate 85 96 H 97 H Respiratory Rate 20 Blood Pressure 125/71 Pulse Oximetry 97 04/28/18 09:15 Temperature 100.6 F H Pulse Rate 91 H Respiratory Rate 16 Blood Pressure 132/78 Pulse Oximetry 97 Intake & Output 04/27/18 04/28/18 04/28/18 18:59 06:59 18:59 Intake Total 2424 / 2424 2831 / 2831 Output Total 1600 / 1600 Balance 2424 / 2424 1231 / 1231 Weight 104 kg Intake: IV 2130 / 2130 2231 / 2231 D5W/Normal Saline Inj 1,000 ML 1000 / 1000 1000 / 1000 @ 84 mls/hr IV.CONT .[id number] [facility] Rx#:[id number] Maxipime Inj 2,000 MG In NS Inj 100 / 100 200 / 200 100 ML @ 200 mls/hr IV.SIG Q8H [facility] Rx#:[id number] Vancomycin Inj 1,600 MG In NS 1030 / 1030 1031 / 1031 Inj 500 ML @ 250 mls/hr IV.SIG Q6H [facility] Rx#:[id number] Oral 600 / 600 Intake (Blood Product) Amt 294 / 294 Plt Pheresis Leukored/ Irr 294 / 294 Unit [id number] Rbc As-3 Leukoreduced Irrad 0 / 0 Unit [id number] Output: Urine 1600 / 1600 Other: # Voids 3 Date of Last Bowel Movement 04/27/18 04/27/18 # Bowel Movements 2 Result Diagrams: 04/28/18 05:53 04/28/18 05:53 Laboratory Results: Laboratory Results - last 24 hr 04/27/18 04/27/18 04/27/18 09:41 09:41 15:03 WBC RBC Hgb Hct MCV MCH MCHC RDW Plt Count MPV Prelim Diff (Auto) WBC Differential Lymphocytes % (Manual) Abs Neuts (Manual) Differential Comment Platelet Estimate Platelet Morphology RBC Morphology Sodium Potassium Chloride Carbon Dioxide Anion Gap BUN Creatinine Estimated GFR Random Glucose Calcium Phosphorus Magnesium Total Bilirubin AST ALT Alkaline Phosphatase Total Protein Albumin Vancomycin Trough 15.9 H MTS Gel Crossmatch See Detail Bld Prod Order Comment 04/28/18 04/28/18 04/28/18 00:50 05:53 05:53 WBC 0.1 L RBC 2.52 L Hgb 7.4 L Hct 21.1 L MCV 83.8 MCH 29.3 MCHC 35.0 RDW 15.3 Plt Count 19 L* D MPV 7.7 Prelim Diff (Auto) Manual diff required WBC Differential Manual diff final Lymphocytes % (Manual) 100 H Abs Neuts (Manual) 0.0 L* Differential Comment . Platelet Estimate Rare L Platelet Morphology Normal RBC Morphology Normal Sodium 137 Potassium 3.2 L Chloride 103 Carbon Dioxide 21.8 Anion Gap 12 BUN 7 Creatinine 0.59 L Estimated GFR Greater than 89 Random Glucose 95 Calcium 8.3 L Phosphorus 3.1 Magnesium 2.0 Total Bilirubin 3.2 H AST 16 ALT 34 Alkaline Phosphatase 125 H Total Protein 6.2 L Albumin 2.0 L Vancomycin Trough MTS Gel Crossmatch Bld Prod Order Comment Culture Results: Microbiology 04/25/18 19:15 Aerobic Blood Culture - Preliminary Blood - Peripheral No growth in 2 days Anaerobic Blood Culture - Preliminary No growth in 2 days 04/23/18 21:45 Aerobic Blood Culture - Preliminary Blood - Peripheral No growth in 4 days Anaerobic Blood Culture - Preliminary No growth in 4 days 04/23/18 21:50 Aerobic Blood Culture - Preliminary Blood - Line No growth in 4 days Anaerobic Blood Culture - Preliminary No growth in 4 days 04/23/18 14:27 Aerobic Blood Culture - Preliminary Blood - Peripheral No growth in 4 days Anaerobic Blood Culture - Preliminary No growth in 4 days 04/23/18 11:50 Aerobic Blood Culture - Preliminary Blood - Line No growth in 4 days Anaerobic Blood Culture - Preliminary No growth in 4 days Medications: Active Medications Generic Name Dose Route Start Last Admin Trade Name Freq PRN Reason Stop Dose Admin Acetaminophen 650 mg 04/16/18 00:00 04/28/18 09:19 Tylenol PO 650 mg Q4H PRN Administration TEMPERATURE > 100 F Hydrocodone Bitart/Acetaminophen 1 tab 04/23/18 11:51 04/25/18 18:45 [place] 7.5/325 PO 1 tab Q6H PRN Administration PAIN SCALE 6 TO 10 Acyclovir 400 mg 04/24/18 22:00 04/28/18 05:47 Zovirax PO 400 mg Q8HR GILMA Administration Chlorhexidine Gluconate 15 ml 04/23/18 21:00 04/28/18 09:23 Peridex 0.12% Liq SWISH-SPIT Not Given BID G[facility]MA Diphenhydramine HCl 50 mg 04/27/18 10:37 04/27/18 11:16 Benadryl Inj IV.PUSH 50 mg Q6H PRN Administration blood transfusion Fluconazole 200 mg 04/26/18 13:00 04/27/18 09:10 Diflucan PO 200 mg DAILY GILMA Administration Heparin Sodium (Porcine) 0 unit 04/16/18 00:00 04/26/18 00:44 Heparin Central Flush IV.FLUSH 200 unit PRN PRN Administration Flush each lumen Heparin Sodium (Porcine) 0 unit 04/16/18 09:00 04/27/18 11:06 Heparin Central Flush IV.FLUSH Not Given DAILY [facility]MA Cefepime HCl 2,000 mg/ Sodium 100 mls @ 200 mls/hr 04/23/18 13:00 04/28/18 04 :37 Chloride IV.SIG Infused Q8H G[facility]MA Infusion Vancomycin HCl 1,600 mg/ 516 mls @ 250 mls/hr 04/28/18 03:00 04/28/18 06:48 Sodium Chloride IV.SIG Infused Q6H [facility]MA Infusion Lidocaine HCl 15 ml 04/23/18 10:00 04/26/18 09:08 Xylocaine 2% Viscous SWISH-SPIT 15 ml Q4H PRN Administration PAIN SCALE 6 TO 10 Lorazepam 0.5 mg 04/26/18 08:54 04/26/18 09:10 Ativan Inj IV.PUSH 0.5 mg Q6H PRN Administration MILD NAUSEA Miscellaneous Information 1 each 04/16/18 00:00 04/16/18 13:22 Mis Nursing Information OTHER Not Given Q361D [facility] Morphine Sulfate 2 mg 04/16/18 00:00 04/23/18 12:56 Morphine Inj IV.PUSH 2 mg Q2H PRN Administration PAIN SCALE 6 TO 10 Multi-Ingredient Mouthwash/Gargle 5 ml 04/22/18 13:00 04/28/18 09:22 Magic Mouthwash Adult Liq SWISH-SWAL Not Given QID [facility] Nystatin 500,000 ml 04/26/18 13:00 04/28/18 09:23 Mycostatin Liq SWISH-SWAL Not Given QID [facility] Ondansetron HCl 4 mg 04/16/18 00:00 04/23/18 10:26 Zofran Inj IV.PUSH 4 mg Q6H PRN Administration NAUSEA OR VOMITING Pantoprazole Sodium 40 mg 04/16/18 09:00 04/27/18 09:10 Protonix PO 40 mg DAILY GILMA Administration Prochlorperazine Edisylate 5 mg 04/26/18 08:51 04/27/18 09:47 Compazine Inj IV.PUSH 5 mg Q6H PRN Administration MILD NAUSEA Sodium Chloride 0 ml 04/16/18 09:00 04/28/18 09:19 Ns Flush IV.FLUSH 2 ml DAILY GILMA Administration Sodium Chloride 0 ml 04/16/18 00:00 04/27/18 09:15 Ns Flush IV.FLUSH 5 ml PRN PRN Administration FLUSH AFTER USING IV ACCESS Temazepam 15 mg 04/23/18 21:00 04/23/18 22:40 Restoril PO 15 mg HS PRN Administration INSOMNIA Objective Remarks: GENERAL: Well-nourished, well-developed young male patient, lying in bed, on the telephone. SKIN: Pale, warm and dry. Leal catheter to right chest wall, dressing dry/ intact, no redness. HEAD: Normocephalic. EYES: No scleral icterus. No injection or drainage. MOUTH: Pale, dry mucous membranes. No thrush. plaque buildup at receding gum lines. NECK: Supple, trachea midline. CARDIOVASCULAR: +S1/S2. Regular rate and rhythm without murmurs. RESPIRATORY: Anterior breath sounds clear & equal bilaterally. No accessory muscle use. GASTROINTESTINAL: Abdomen soft, non-tender, nondistended. EXTREMITIES: No cyanosis, or edema. MUSCULOSKELETAL: Adequate muscle tone. NEUROLOGICAL: No obvious focal deficit. Awake, alert, and oriented x3. PSYCHIATRIC: Appropriate mood and affect; insight and judgment normal. Assessment/Plan (1) Pancytopenia due to antineoplastic chemotherapy Code(s): D61.810 - Antineoplastic chemotherapy induced pancytopenia; T45.1X5A - Adverse effect of antineoplastic and immunosuppressive drugs, initial encounter Status: Acute (2) AML (acute myeloid leukemia) Code(s): C92.00 - Acute myeloblastic leukemia, not having achieved remission Status: Acute - Plan 04/15 D1 Daunorubicin + Cytarabine 04/16: D2 Daunorubicin + Cytarabine 72: D3 Daunorubicin + Cytarabine 04/18: D4 Cytarabine. Afebrile. Tolerating chemo well. 04/19: D5 Cytarabine continue 04/20: D6 Cytarabine continues. 04/21: D7 Cytarabine continues. Afebrile, tolerating well. 04/22: D8 cytarabine. Afebrile, platelet transfusion this a.m. Now with jaw pain. 04/23: D9 Cytarabine completed overnight. Afebrile. Continued jaw pain. Diarrhea 3 x's/day, +n/v x's 1, + insomnia. 04/24: D10 febrile, T-max 102. Blood cultures pending. Currently on cefepime. ID and ENT consult. 04/25: D11 febrile, T-max 102.5F. Blood cultures no growth 2 days. Antibiotics per ID. ENT deferred consult to oral maxillofacial surgery. 04/28: D14 febrile, T-max 100.6F. Blood cultures no growth and 4 days. Current cultures pending. Day 14 bone marrow biopsy scheduled for today. 1. Neutropenic fever. Continues to be febrile and neutropenic. Anticipate neutropenia to continue for another week. Antibiotic support per infectious disease. 2. Continue neutropenic precautions. 3. Abdominal pain, now resolved. 4. Anemia and thrombocytopenia. Transfuse for hgb <7.0 and platelet <15K or symptoms. Hemoglobin 7.4, platelets 19 K. Patient will be transfused 1 unit of platelets for his bone marrow biopsy today. 5. Lower jaw pain, and mucositis. Jaw pain resolved at this time. 6. Swollen gums, erosive gingivitis. Continue viscous lidocaine swish and spit as needed for pain. Continue chlorhexidine antibacterial rinse. Infectious disease has added acyclovir for possible viral associated gingivitis. 7. Continue Restoril as needed for insomnia. - Attending Statement The exam, history, and the medical decision-making described in the above note were completed with the assistance of the mid-level provider. I reviewed and agree with the findings presented. I attest that I had a [id number] encounter with the patient on the same day, and personally performed and documented my assessment and findings in the medical record. Patient seen and examined. He states he does not feel bad with the fevers. He has had no more vomiting. His abdominal pain has resolved. He continues to have loose stools he would like to try to advance his diet. He tolerated the bone marrow biopsy well. He has some soreness but no bleeding. The case was discussed with Dr. Cole earlier. (2) AML (acute myeloid leukemia) Qualifiers: Leukemia Active/Remission status: without remission Qualified Code(s): C92.00 - Acute myeloblastic leukemia, not having achieved remission
[2018-04-28] MEDS ORDERED: fentaNYL Citrate Inj 100 MCG/2 ML Ampul ONE (11:05)
--- NOTE | 2018-04-28 11:37 | P.RAD ---
Post CT Procedure Prog Note - Pre Procedure Diagnosis (1) AML (acute myeloid leukemia) (2) Pancytopenia due to antineoplastic chemotherapy - Post Procedure Diagnosis (1) AML (acute myeloid leukemia) (2) Pancytopenia due to antineoplastic chemotherapy - Procedure Information Supervising Radiologist: Tyrell Cole MD Anesthesia: Local, Conscious Sedation - Plan of Activity Patient to Unit: Nursing Unit Patient condition: Good See PACS Report for procedural detail/treatment. Biopsy CT right Bone Marrow Site: Right iliac bone Specimen: Core Biopsy, Fine Needle Aspirate
[2018-04-28 12:15] LABS: Iron Stain Bone Marrow Done
--- NOTE | 2018-04-28 13:08 | CT ---
EXAM DATE: 04/28/2018 11:42 AM EDT AGE/SEX: 27 years / Male INDICATIONS: Leukemia. CLINICAL DATA: This is the patient's initial encounter. Patient reports that signs and symptoms have been present for 1 day and indicates a pain score of 0/10. MEDICAL/SURGICAL HISTORY: Leukemia. None. COMPARISON: [facility] [place], CT NEEDLE BIOPSY BONE MARROW, 04/13/2018. . BIOPSY SITE: Right bone marrow MEDICATION(S): 6mg midazolam (Versed) IV 300mcg fentanyl (Sublimaze) IV DEVICE(S): 11 gauge Bone marrow biopsy needle One core specimen(s) sent to the laboratory for pathologic evaluation. . . PROCEDURE: CT guided Right bone marrow biopsy Prior to the procedure informed consent was obtained. Any appropriate prior imaging studies were rev iewed. Using automated exposure control and adjustment of the mA and/or kV according to patient size , radiation dose was kept as low as reasonably achievable to obtain optimal diagnostic quality images . DICOM format image data is available electronically for review and comparison. The site was prepped in a sterile fashion. Full sterile technique was used, including cap, mask, hiram rile gloves and gown and a large sterile sheet. Hand hygiene and 2% chlorhexidine and/or betadine/al cohol prep was utilized per protocol for cutaneous antisepsis. The skin and subcutaneous tissues wer e infiltrated with local anesthetic solution. With CT guidance the previously identified target was localized. Biopsy was performed using the presc ribed needle as above. Following biopsy marrow aspiration was performed with repeat puncture. [place]qua te hemostasis was obtained with compression at the puncture site. Follow-up CT scan reveals no hemorrhage. Conscious sedation was performed with the prescribed dosages and duration as above in the presence of an independent trained radiology nurse to assist in the monitoring of the patient. EKG and oximetry remained stable throughout the procedure. The patient tolerated the procedure well and there were no complications. The patient was sent to Radiology Outpatient Unit in stable condition. CONCLUSION: 1. Uncomplicated CT guided bone marrow aspirate. 2. Uncomplicated CT guided bone marrow biopsy. Electronically signed by: Tyrell Cole MD 04/28/2018 1:07 PM EDT
--- NOTE | 2018-04-28 13:12 | P.PNIM ---
Subjective Interval history: 7-9 Follow up for AML and neutropenic fever. Patient is doing well. He reports no jaw pain anymore but complains of upper lip swelling. No complains of respiratory compromise. T-max 102F. 7-10 IN neutropenic precautions Had fevers Remains on antibiotics Has some abdominal pain on and off Discussed with patient and RN and case management and oncology A.m. labs 7-11 STILL HAVING SOME ABDOMINAL PAIN ANTIBIOTICS ADJUSTED BY ID STILL NO RECOVERY OF NEUTROPHIL COUNTS DW RN AND PT AND CM CONTINUE CURRENT TREATMENTS TRANSFUSE PER ONCOLOGY AM LABS 04-27 PATIENT HAD SOME NAUSEA TODAY TO GET BLOOD TRANSFUSION WILL GIVE IV BENADRYL AND IV TYLENOL PRIOR TO TRANSFUSION DW RN AND PT 04-28 HAD BONE MARROW BIOPSY TODAY TRANSFUSED BEFORE DW RN AND PT AND ONCOLOGY AND CASE MANAGEMENT MEDS ADJUSTED BY ID AM LABS Physical Exam Vital signs: Vital Signs 04/27/18 13:24 04/27/18 14:05 04/27/18 15:32 Temperature 100.7 F H 97.8 F 99.9 F H Pulse Rate 80 105 H 79 Respiratory Rate 16 16 18 Blood Pressure 136/75 149/82 H 130/67 Pulse Oximetry 98 98 97 04/27/18 17:49 04/27/18 19:06 04/27/18 20:00 Temperature 100.1 F H Pulse Rate 92 H 88 Respiratory Rate 20 Blood Pressure 140/71 Pulse Oximetry 97 98 04/27/18 23:59 04/28/18 00:07 04/28/18 04:19 Temperature 100.6 F H Pulse Rate 89 85 96 H Respiratory Rate 18 Blood Pressure 125/70 Pulse Oximetry 98 04/28/18 05:41 04/28/18 09:15 04/28/18 10:11 Temperature 100.3 F H 100.6 F H 100.2 F H Pulse Rate 97 H 91 H 91 H Respiratory Rate 20 16 16 Blood Pressure 125/71 132/78 123/62 Pulse Oximetry 97 97 97 Intake & Output 04/27/18 04/28/18 04/28/18 18:59 06:59 18:59 Intake Total 2424 / 2424 2831 / 2831 290 / 290 Output Total 1600 / 1600 Balance 2424 / 2424 1231 / 1231 290 / 290 Weight 104 kg Intake: IV 2130 / 2130 2231 / 2231 D5W/Normal Saline Inj 1,000 ML 1000 / 1000 1000 / 1000 @ 84 mls/hr IV.CONT .[id number] [facility] Rx#:[id number] Maxipime Inj 2,000 MG In NS Inj 100 / 100 200 / 200 100 ML @ 200 mls/hr IV.SIG Q8H [facility] Rx#:[id number] Vancomycin Inj 1,600 MG In NS 1030 / 1030 1031 / 1031 Inj 500 ML @ 250 mls/hr IV.SIG Q6H [facility] Rx#:[id number] Oral 600 / 600 Other 100 / 100 Plt Pheresis C Leukored/Irr 100 / 100 Unit [id number] Intake (Blood Product) Amt 294 / 294 190 / 190 Plt Pheresis C Leukored/Irr 190 / 190 Unit [id number] Plt Pheresis Leukored/ Irr 294 / 294 Unit [id number] Rbc As-3 Leukoreduced Irrad 0 / 0 Unit [id number] Output: Urine 1600 / 1600 Other: Other Intake Source Plt Pheresis C Leukored/Irr Saline Solution Unit [id number] # Voids 3 Date of Last Bowel Movement 04/27/18 04/27/18 # Bowel Movements 2 Narrative: GENERAL: Awake alert and oriented 3 talkative and cooperative SKIN: Warm and dry. HEAD: Normocephalic. Atraumatic EYES: No scleral icterus. No injection or drainage. NECK: Supple, trachea midline. No JVD or lymphadenopathy. CARDIOVASCULAR: Regular rate and rhythm without murmurs, gallops, or rubs. S1- S2 no S3 or S4 RESPIRATORY: Breath sounds equal bilaterally. No accessory muscle use. GASTROINTESTINAL: Abdomen soft, non-tender, nondistended. MUSCULOSKELETAL: No cyanosis, or edema. BACK: Nontender without obvious deformity. No CVA tenderness. Insight and judgment is good Mood and behaviors appropriate Results - Labs CBC & Chem 7: 04/28/18 05:53 04/28/18 05:53 Laboratory Results - last 24 hr 04/27/18 04/27/18 04/28/18 09:41 15:03 00:50 WBC RBC Hgb Hct MCV MCH MCHC RDW Plt Count MPV Prelim Diff (Auto) WBC Differential Lymphocytes % (Manual) Abs Neuts (Manual) Differential Comment Platelet Estimate Platelet Morphology RBC Morphology Sodium Potassium Chloride Carbon Dioxide Anion Gap BUN Creatinine Estimated GFR Random Glucose Calcium Phosphorus Magnesium Total Bilirubin AST ALT Alkaline Phosphatase Total Protein Albumin Vancomycin Trough 15.9 H MTS Gel Crossmatch See Detail Bld Prod Order Comment 04/28/18 04/28/18 05:53 05:53 WBC 0.1 L RBC 2.52 L Hgb 7.4 L Hct 21.1 L MCV 83.8 MCH 29.3 MCHC 35.0 RDW 15.3 Plt Count 19 L* D MPV 7.7 Prelim Diff (Auto) Manual diff required WBC Differential Manual diff final Lymphocytes % (Manual) 100 H Abs Neuts (Manual) 0.0 L* Differential Comment . Platelet Estimate Rare L Platelet Morphology Normal RBC Morphology Normal Sodium 137 Potassium 3.2 L Chloride 103 Carbon Dioxide 21.8 Anion Gap 12 BUN 7 Creatinine 0.59 L Estimated GFR Greater than 89 Random Glucose 95 Calcium 8.3 L Phosphorus 3.1 Magnesium 2.0 Total Bilirubin 3.2 H AST 16 ALT 34 Alkaline Phosphatase 125 H Total Protein 6.2 L Albumin 2.0 L Vancomycin Trough MTS Gel Crossmatch Bld Prod Order Comment Microbiology 04/27/18 13:40 Blood - Other Aerobic Blood Culture - Preliminary No growth in 1 day 04/27/18 13:40 Blood - Other Anaerobic Blood Culture - Preliminary No growth in 1 day 04/27/18 03:45 Blood - Peripheral Aerobic Blood Culture - Preliminary No growth in 1 day 04/27/18 03:45 Blood - Peripheral Anaerobic Blood Culture - Preliminary No growth in 1 day 04/27/18 01:00 Blood - Line Aerobic Blood Culture - Preliminary No growth in 1 day 04/27/18 01:00 Blood - Line Anaerobic Blood Culture - Preliminary No growth in 1 day 04/25/18 19:15 Blood - Peripheral Aerobic Blood Culture - Preliminary No growth in 3 days 04/25/18 19:15 Blood - Peripheral Anaerobic Blood Culture - Preliminary No growth in 3 days 04/23/18 21:45 Blood - Peripheral Aerobic Blood Culture - Final No growth in 5 days 04/23/18 21:45 Blood - Peripheral Anaerobic Blood Culture - Final No growth in 5 days 04/23/18 21:50 Blood - Line Aerobic Blood Culture - Final No growth in 5 days 04/23/18 21:50 Blood - Line Anaerobic Blood Culture - Final No growth in 5 days 04/23/18 14:27 Blood - Peripheral Aerobic Blood Culture - Final No growth in 5 days 04/23/18 14:27 Blood - Peripheral Anaerobic Blood Culture - Final No growth in 5 days 04/23/18 11:50 Blood - Line Aerobic Blood Culture - Final No growth in 5 days 04/23/18 11:50 Blood - Line Anaerobic Blood Culture - Final No growth in 5 days - Imaging Impressions Bone Marrow Biopsy w/ CT 04/28/18 08:00 CONCLUSION: 1. Uncomplicated CT guided bone marrow aspirate. 2. Uncomplicated CT guided bone marrow biopsy. - Procedures BM biopsy Leal catheter placement Echo 04/14/2018 The left ventricular systolic function is hyperdynamic with an estimated ejection fraction in the range of 65- 70%. Normal left ventricular size. Wall thickness is normal. No regional wall motion abnormalities are present. Trace mitral valve regurgitation. The left ventricular systolic function is hyperdynamic with an estimated ejection fraction in the range of 65- 70%. Normal left ventricular size. Wall thickness is normal. No regional wall motion abnormalities are present. Trace mitral valve regurgitation. The estimated pulmonary arterial pressure is 30.6 mmHg. BM BIOPSY 04-28 Assessment and Plan - Assessment (1) AML (acute myeloid leukemia) Code(s): C92.00 - Acute myeloblastic leukemia, not having achieved remission Status: Acute - Plan Mr. Hall is a pleasant 27-year-old male who was admitted on 2017 due to generalized weakness. His hemoglobin was 3.3 and platelet 30 on admission. Hematology oncology was consulted for pancytopenia. Patient was eventually diagnosed with AML. Hematology oncology started treatment for AML. Acute myeloid leukemia -Confirmed with bone marrow biopsy on 04/13/2018. -Patient has received induction therapy 7+3 chemotherapy. Currently on Cytarabine. Tolerating chemotherapy well. -Hemoglobin 7.1, WBC 0.1, platelets 17K on 04/23/2018. Neutrophil count essentially zero on 04/22/2018. TRANSFUSION PER ONCOLOGY ON 04-27 WILL GIVE IV TYLENOL AND IV BENADRYL -04-28 HAD REPEAT BONE MARROW BIOPSY TODAY Neutropenic fever -Urinalysis, chest x-ray unremarkable. Continue cefepime 2 g every 8 hours. -Being seen by infectious disease -MEDS ADJUSTED BY ID Jaw pain -CT scan shows no evidence of any necrosis or other pathology. Diarrhea -C. difficile PCR negative. MUCOSITIS ON DIFLUCAN AND NYSTATIN SWISH AND SWALLOW- MEDS ADJUSTED BY ID History of seizure -continue seizure precautions. HYPOKALEMIA WILL REPLACE PANCYTOPENIA TRANSFUSE NEED PER ONCOLOGY Full code. SCDs, Ambulation. CONTINUE CURRENT TREATMENTS A.m. labs Code Status: FULL CODE Discussed Condition With: RN AND PT AND ONCOLOGY AND CM Discharge Planning: Pending clearance by all (1) AML (acute myeloid leukemia) Qualifiers: Leukemia Active/Remission status: without remission Qualified Code(s): C92.00 - Acute myeloblastic leukemia, not having achieved remission
[2018-04-28] MEDS ORDERED: Potassium Chloride 10 MEQ ER Capsule PO ONE (15:15)
[2018-04-28] MEDS: Temazepam 15 MG Capsule PO PRN (22:00)
[2018-04-29] MEDS: Acetaminophen 325 MG Tablet PO PRN ×3 (01:04→21:07)
[2018-04-29] MEDS: Vancomycin Inj 1,600 MG in Sodium Chlor 0.9% Inj 500 ML IV.SIG SCH ×2 (04:05→10:00)
[2018-04-29 05:06] LABS: Mean Corpuscular HGB Conc 34.9 % (32.0-36.0); Mean Corpuscular Hemoglobin 29.4 pg (27.0-34.0); Mean Corpuscular Volume 84.2 fL (80.0-100.0); Mean Platelet Volume 7.7 fL (7.0-11.0); Platelet Count 24 th/mm3 (150-450); Red Blood Count 2.34 mil/mm3 (4.50-5.90); Red Cell Distribution Width 15.6 % (11.6-17.2); White Blood Count 0.1 th/mm3 (4.0-11.0)
[2018-04-29 05:33] LABS: Hematocrit 19.7 % (39.0-51.0); Hemoglobin 6.9 gm/dL (13.0-17.0)
[2018-04-29 06:02] LABS: Albumin 1.9 g/dL (3.4-5.0); Anion Gap 13 meq/L (5-15); Aspartate Aminotransferase 19 U/L (15-37); Blood Urea Nitrogen 5 mg/dL (7-18); Calcium 8.3 mg/dL (8.5-10.1); Carbon Dioxide 21.3 meq/L (21.0-32.0); Chloride 102 meq/L (98-107); Glomerular Filtration Rate Greater Than 89 mL/min (>89); Glucose,Random 99 mg/dL (74-106); Magnesium 2.1 mg/dL (1.5-2.5); Sodium 136 meq/L (136-145)
[2018-04-29 06:03] LABS: Alanine Aminotransferase 38 U/L (12-78); Phosphorus 2.9 mg/dL (2.5-4.9)
[2018-04-29 06:05] LABS: Alkaline Phosphatase 146 U/L (45-117)
[2018-04-29] MEDS: Acyclovir 200 MG Capsule PO SCH ×3 (06:09→21:07)
--- NOTE | 2018-04-29 07:08 | P.PNFP ---
Subjective Interval history: Pt seen and examined for f/u of AML with pancytopenia and neutropenic fever. Tmax 101.6 overnight. No acute complaints per patient. Denies chills, abdominal pain, N/V, rash, CP, SOB, or cough. Tolerating PO. Receiving transfusion. Results - Labs Result diagrams: 04/29/18 04:00 04/29/18 04:00 Abnormal lab results 04/28/18 04/28/18 04/29/18 Range/Units 05:53 05:53 04:00 WBC 0.1 L 0.1 L (4.0-11.0) th/mm3 RBC 2.52 L 2.34 L (4.50-5.90) mil/mm3 Hgb 7.4 L 6.9 L* (13.0-17.0) gm/dL Hct 21.1 L 19.7 L* (39.0-51.0) % Plt Count 19 L* D 24 L (150-450) th/mm3 Lymphocytes % (Manual) 100 H (9-44) % Abs Neuts (Manual) 0.0 L* (1.8-7.7) th/mm3 Platelet Estimate Rare L (Normal) Potassium 3.2 L (3.5-5.1) meq/L BUN (7-18) mg/dL Creatinine 0.59 L (0.60-1.30) mg/dL Calcium 8.3 L (8.5-10.1) mg/dL Total Bilirubin 3.2 H (0.2-1.0) mg/dL Alkaline Phosphatase 125 H (45-117) U/L Total Protein 6.2 L (6.4-8.2) g/dL Albumin 2.0 L (3.4-5.0) g/dL 04/29/18 Range/Units 04:00 WBC (4.0-11.0) th/mm3 RBC (4.50-5.90) mil/mm3 Hgb (13.0-17.0) gm/dL Hct (39.0-51.0) % Plt Count (150-450) th/mm3 Lymphocytes % (Manual) (9-44) % Abs Neuts (Manual) (1.8-7.7) th/mm3 Platelet Estimate (Normal) Potassium 3.0 L (3.5-5.1) meq/L BUN 5 L (7-18) mg/dL Creatinine 0.56 L (0.60-1.30) mg/dL Calcium 8.3 L (8.5-10.1) mg/dL Total Bilirubin 2.6 H (0.2-1.0) mg/dL Alkaline Phosphatase 146 H (45-117) U/L Total Protein 6.0 L (6.4-8.2) g/dL Albumin 1.9 L (3.4-5.0) g/dL Short CBC 04/28/18 04/29/18 Range/Units 05:53 04:00 WBC 0.1 L 0.1 L (4.0-11.0) th/mm3 Hgb 7.4 L 6.9 L* (13.0-17.0) gm/dL Hct 21.1 L 19.7 L* (39.0-51.0) % Plt Count 19 L* D 24 L (150-450) th/mm3 BMP 04/28/18 04/29/18 05:53 04:00 Sodium 137 136 Potassium 3.2 L 3.0 L Chloride 103 102 Carbon Dioxide 21.8 21.3 BUN 7 5 L Creatinine 0.59 L 0.56 L Calcium 8.3 L 8.3 L Liver Function 04/28/18 04/29/18 Range/Units 05:53 04:00 Total Bilirubin 3.2 H 2.6 H (0.2-1.0) mg/dL AST 16 19 (15-37) U/L ALT 34 38 (12-78) U/L Alkaline Phosphatase 125 H 146 H (45-117) U/L Albumin 2.0 L 1.9 L (3.4-5.0) g/dL - Imaging Impressions Bone Marrow Biopsy w/ CT 04/28/18 08:00 CONCLUSION: 1. Uncomplicated CT guided bone marrow aspirate. 2. Uncomplicated CT guided bone marrow biopsy. Physical Exam Vital signs: Vital Signs 04/28/18 09:15 04/28/18 10:11 04/28/18 11:35 Temperature 100.6 F H 100.2 F H 98.8 F Pulse Rate 91 H 91 H 88 Respiratory Rate 16 16 18 Blood Pressure 132/78 123/62 129/64 Pulse Oximetry 97 97 94 L 04/28/18 11:50 04/28/18 12:20 04/28/18 12:50 Temperature Pulse Rate 84 89 86 Respiratory Rate 18 18 16 Blood Pressure 126/69 129/66 128/68 Pulse Oximetry 96 95 98 04/28/18 13:17 04/28/18 15:32 04/28/18 20:00 Temperature 99.7 F H 100.2 F H Pulse Rate 82 99 H Respiratory Rate 16 16 Blood Pressure 133/74 140/62 Pulse Oximetry 94 L 95 97 04/29/18 00:00 04/29/18 04:06 Temperature 101.6 F H 99.9 F H Pulse Rate 96 H 94 H Respiratory Rate 16 18 Blood Pressure 131/67 115/57 L Pulse Oximetry 98 97 Intake & Output 04/28/18 04/28/18 04/29/18 06:59 18:59 06:59 Intake Total 2831 / 2831 906 / 906 616 / 616 Output Total 1600 / 1600 1900 / 1900 Balance 1231 / 1231 -994 / -994 616 / 616 Weight 104 kg Intake: IV 2231 / 2231 616 / 616 616 / 616 D5W/Normal Saline Inj 1,000 ML 1000 / 1000 @ 84 mls/hr IV.CONT .[id number] [facility] Rx#:[id number] Maxipime Inj 2,000 MG In NS Inj 200 / 200 100 / 100 100 / 100 100 ML @ 200 mls/hr IV.SIG Q8H [facility] Rx#:[id number] Vancomycin Inj 1,600 MG In NS 1031 / 1031 516 / 516 516 / 516 Inj 500 ML @ 250 mls/hr IV.SIG Q6H [facility] Rx#:[id number] Oral 600 / 600 Other 100 / 100 Plt Pheresis C Leukored/Irr 100 / 100 Unit [id number] Intake (Blood Product) Amt 190 / 190 Plt Pheresis C Leukored/Irr 190 / 190 Unit [id number] Output: Urine 1600 / 1600 1900 / 1900 Other: Other Intake Source Plt Pheresis C Leukored/Irr Saline Solution Unit [id number] # Voids 3 Date of Last Bowel Movement 04/27/18 04/28/18 04/28/18 # Bowel Movements 2 2 Narrative: GENERAL: WN, WD male resting in bed in NAD. SKIN: Warm and dry. HEENT: AT/NC. Pupils equal and round. MMM. NECK: Supple no tender LAD or JVD. HEART: RRR no m/r/g. LUNGS: CTAB without wheezes or crackles. ABDOMEN: +BS, soft, NT, ND. EXTREMITIES: No LE edema. NEURO: Awake and alert. PSYCH: Appropriate mood and affect. Assessment and Plan - Assessment (1) AML (acute myeloid leukemia) Code(s): C92.00 - Acute myeloblastic leukemia, not having achieved remission Status: Acute - Assessment and Plan 27 YOWM admitted 04/12/2018 due to generalized weakness. His hemoglobin was 3.3 and platelets 30k on admission. Hematology was consulted , and patient was ultimately diagnosed with AML. 1. Acute myeloid leukemia with pancytopenia - Confirmed with BM biopsy 04/13 - Heme/onc consulted; completed nine days of induction chemo (daunorubicin + cytarabine x 3 days followed by 6 days of cytarabine) - Per oncology: transfuse if Hb<7.0 or PLT<15K - Hb 6.9 this AM, will transfuse 1 unit. Plt okay at 24k - 04/28 bone marrow biopsy performed 2. Neutropenic fever - Tmax 101.6 overnight and continues to be febrile this AM, repeat blood cultures drawn - White count continues to be extremely low and patient pancytopenic - U/A and CXR unremarkable from 04/23 - Multiple blood cultures have been negative to date - ID following - On Cefepime, vancomycin, and acyclovir - No specific nidus of infection at this time - Continue to closely monitor 3. Diarrhea - Continue to have loose stool - C. diff PCR negative - Likely secondary to chemo 4. Jaw pain - CT with no evidence of necrosis or other pathology 5. Mucositis - Continue Diflucan and Nystatin S&S 6. History of seizure - Seizure precautions 7. Hypokalemia - Potassium continues to be low - Mg WNL - KCl 40 meq PO x 1 - Continue to monitor closely DVT prophylaxis: SCDs, ambulation. Chemical anticoagulation C/I given severe thrombocytopenia (1) AML (acute myeloid leukemia) Qualifiers: Leukemia Active/Remission status: without remission Qualified Code(s): C92.00 - Acute myeloblastic leukemia, not having achieved remission
[2018-04-29] MEDS: Nystatin Liq 500,000 UNIT/5 ML UDC SWISH-SWAL SCH ×4 (08:05→21:07)
[2018-04-29] MEDS: Chlorhexidine Gluconate 0.12% Liq 15 ML UDC SWISH-SPIT SCH ×2 (08:06→21:12)
[2018-04-29 08:08] LABS: Lymphocytes 100 % (9-44)
[2018-04-29 08:10] LABS: Platelet Morphology Normal (Normal)
[2018-04-29 08:11] LABS: Ovalocytes 1+; Platelet Estimate Rare (Normal)
[2018-04-29] MEDS ORDERED: Pharmacy Ordered Lab Info OTHER ONE (08:45)
--- NOTE | 2018-04-29 09:34 | P.PNONC ---
Subjective Interval history: Febrile overnight, T-max 101.6F. patient sitting up at the bedside, in no acute distress. He denies any pain, n/v. He reports that his diarrhea remains the same at approximately 3 watery BMs per day. Denies any abdominal pain or discomfort. Objective Vital Signs/Intake & Output: Vital Signs 04/28/18 10:11 04/28/18 11:35 04/28/18 11:50 Temperature 100.2 F H 98.8 F Pulse Rate 91 H 88 84 Respiratory Rate 16 18 18 Blood Pressure 123/62 129/64 126/69 Pulse Oximetry 97 94 L 96 04/28/18 12:20 04/28/18 12:50 04/28/18 13:17 Temperature Pulse Rate 89 86 Respiratory Rate 18 16 Blood Pressure 129/66 128/68 Pulse Oximetry 95 98 94 L 04/28/18 15:32 04/28/18 20:00 04/29/18 00:00 Temperature 99.7 F H 100.2 F H 101.6 F H Pulse Rate 82 99 H 96 H Respiratory Rate 16 16 16 Blood Pressure 133/74 140/62 131/67 Pulse Oximetry 95 97 98 04/29/18 04:00 04/29/18 04:06 04/29/18 07:53 Temperature 99.9 F H 101.5 F H Pulse Rate 85 94 H 106 H Respiratory Rate 18 20 Blood Pressure 115/57 L 147/76 H Pulse Oximetry 97 95 Intake & Output 04/28/18 04/29/18 04/29/18 18:59 06:59 18:59 Intake Total 906 / 906 856 / 856 616 / 616 Output Total 1900 / 1900 1400 / 1400 Balance -994 / -994 -544 / -544 616 / 616 Intake: IV 616 / 616 616 / 616 616 / 616 Maxipime Inj 2,000 MG In NS Inj 100 / 100 100 / 100 100 / 100 100 ML @ 200 mls/hr IV.SIG Q8H [facility] Rx#:[id number] Vancomycin Inj 1,600 MG In NS 516 / 516 516 / 516 516 / 516 Inj 500 ML @ 250 mls/hr IV.SIG Q6H [facility] Rx#:[id number] Oral 240 / 240 Other 100 / 100 Plt Pheresis C Leukored/Irr 100 / 100 Unit [id number] Intake (Blood Product) Amt 190 / 190 Plt Pheresis C Leukored/Irr 190 / 190 Unit [id number] Output: Urine 1900 / 1900 1400 / 1400 Other: Other Intake Source Plt Pheresis C Leukored/Irr Saline Solution Unit [id number] Date of Last Bowel Movement 04/28/18 04/28/18 # Bowel Movements 2 Result Diagrams: 04/29/18 04:00 04/29/18 04:00 Laboratory Results: Laboratory Results - last 24 hr 04/28/18 04/29/18 04/29/18 00:50 04:00 04:00 WBC 0.1 L RBC 2.34 L Hgb 6.9 L* Hct 19.7 L* MCV 84.2 MCH 29.4 MCHC 34.9 RDW 15.6 Plt Count 24 L MPV 7.7 Prelim Diff (Auto) Manual diff required WBC Differential Manual diff final Lymphocytes % (Manual) 100 H Abs Neuts (Manual) 0.0 L* Differential Comment . Platelet Estimate Rare L Platelet Morphology Normal Ovalocytes 1+ H Sodium 136 Potassium 3.0 L Chloride 102 Carbon Dioxide 21.3 Anion Gap 13 BUN 5 L Creatinine 0.56 L Estimated GFR Greater than 89 Random Glucose 99 Calcium 8.3 L Phosphorus 2.9 Magnesium 2.1 Total Bilirubin 2.6 H AST 19 ALT 38 Alkaline Phosphatase 146 H Total Protein 6.0 L Albumin 1.9 L Vancomycin Trough MTS Gel Crossmatch Bld Prod Order Comment 04/29/18 04/29/18 08:28 08:28 WBC RBC Hgb Hct MCV MCH MCHC RDW Plt Count MPV Prelim Diff (Auto) WBC Differential Lymphocytes % (Manual) Abs Neuts (Manual) Differential Comment Platelet Estimate Platelet Morphology Ovalocytes Sodium Potassium Chloride Carbon Dioxide Anion Gap BUN Creatinine Estimated GFR Random Glucose Calcium Phosphorus Magnesium Total Bilirubin AST ALT Alkaline Phosphatase Total Protein Albumin Vancomycin Trough 23.2 H MTS Gel Crossmatch See Detail Bld Prod Order Comment Culture Results: Microbiology 04/27/18 13:40 Aerobic Blood Culture - Preliminary Blood - Other No growth in 1 day Anaerobic Blood Culture - Preliminary No growth in 1 day 04/27/18 03:45 Aerobic Blood Culture - Preliminary Blood - Peripheral No growth in 1 day Anaerobic Blood Culture - Preliminary No growth in 1 day 04/27/18 01:00 Aerobic Blood Culture - Preliminary Blood - Line No growth in 1 day Anaerobic Blood Culture - Preliminary No growth in 1 day 04/25/18 19:15 Aerobic Blood Culture - Preliminary Blood - Peripheral No growth in 3 days Anaerobic Blood Culture - Preliminary No growth in 3 days 04/23/18 21:45 Aerobic Blood Culture - Final Blood - Peripheral No growth in 5 days Anaerobic Blood Culture - Final No growth in 5 days 04/23/18 21:50 Aerobic Blood Culture - Final Blood - Line No growth in 5 days Anaerobic Blood Culture - Final No growth in 5 days 04/23/18 14:27 Aerobic Blood Culture - Final Blood - Peripheral No growth in 5 days Anaerobic Blood Culture - Final No growth in 5 days 04/23/18 11:50 Aerobic Blood Culture - Final Blood - Line No growth in 5 days Anaerobic Blood Culture - Final No growth in 5 days Imaging Studies: Impressions Bone Marrow Biopsy w/ CT 04/28/18 08:00 CONCLUSION: 1. Uncomplicated CT guided bone marrow aspirate. 2. Uncomplicated CT guided bone marrow biopsy. Medications: Active Medications Generic Name Dose Route Start Last Admin Trade Name Freq PRN Reason Stop Dose Admin Acetaminophen 650 mg 04/16/18 00:00 04/29/18 08:05 Tylenol PO 650 mg Q4H PRN Administration TEMPERATURE > 100 F Hydrocodone Bitart/Acetaminophen 1 tab 04/23/18 11:51 04/28/18 19:45 [place] 7.5/325 PO 1 tab Q6H PRN Administration PAIN SCALE 6 TO 10 Acyclovir 400 mg 04/24/18 22:00 04/29/18 06:09 Zovirax PO 400 mg Q8HR [facility] Administration Chlorhexidine Gluconate 15 ml 04/23/18 21:00 04/29/18 08:06 Peridex 0.12% Liq SWISH-SPIT 15 ml BID [facility] Administration Diphenhydramine HCl 50 mg 04/27/18 10:37 04/27/18 11:16 Benadryl Inj IV.PUSH 50 mg Q6H PRN Administration blood transfusion Fluconazole 200 mg 04/26/18 13:00 04/29/18 08:05 Diflucan PO 200 mg DAILY [facility] Administration Heparin Sodium (Porcine) 0 unit 04/16/18 00:00 04/26/18 00:44 Heparin Central Flush IV.FLUSH 200 unit PRN PRN Administration Flush each lumen Heparin Sodium (Porcine) 0 unit 04/16/18 09:00 04/28/18 09:15 Heparin Central Flush IV.FLUSH Not Given DAILY [facility] Cefepime HCl 2,000 mg/ Sodium 100 mls @ 200 mls/hr 04/23/18 13:00 04/29/18 07 :54 Chloride IV.SIG Infused Q8H [facility] Infusion Vancomycin HCl 1,600 mg/ 516 mls @ 250 mls/hr 04/28/18 03:00 04/29/18 07:54 Sodium Chloride IV.SIG Infused Q6H [facility] Infusion Lidocaine HCl 15 ml 04/23/18 10:00 04/26/18 09:08 Xylocaine 2% Viscous SWISH-SPIT 15 ml Q4H PRN Administration PAIN SCALE 6 TO 10 Lorazepam 0.5 mg 04/26/18 08:54 04/26/18 09:10 Ativan Inj IV.PUSH 0.5 mg Q6H PRN Administration MILD NAUSEA Miscellaneous Information 1 each 04/16/18 00:00 04/16/18 13:22 Mis Nursing Information OTHER Not Given [id number] [facility] Morphine Sulfate 2 mg 04/16/18 00:00 04/23/18 12:56 Morphine Inj IV.PUSH 2 mg Q2H PRN Administration PAIN SCALE 6 TO 10 Multi-Ingredient Mouthwash/Gargle 5 ml 04/22/18 13:00 04/28/18 22:46 Magic Mouthwash Adult Liq SWISH-SWAL 5 ml QID [facility] Administration Nystatin 500,000 ml 04/26/18 13:00 04/29/18 08:05 Mycostatin Liq SWISH-SWAL 5 ml QID [facility] Administration Ondansetron HCl 4 mg 04/16/18 00:00 04/23/18 10:26 Zofran Inj IV.PUSH 4 mg Q6H PRN Administration NAUSEA OR VOMITING Pantoprazole Sodium 40 mg 04/16/18 09:00 04/29/18 08:05 Protonix PO 40 mg DAILY [facility] Administration Prochlorperazine Edisylate 5 mg 04/26/18 08:51 04/27/18 09:47 Compazine Inj IV.PUSH 5 mg Q6H PRN Administration MILD NAUSEA Sodium Chloride 0 ml 04/16/18 09:00 04/28/18 09:19 Ns Flush IV.FLUSH 2 ml DAILY [facility] Administration Sodium Chloride 0 ml 04/16/18 00:00 04/27/18 09:15 Ns Flush IV.FLUSH 5 ml PRN PRN Administration FLUSH AFTER USING IV ACCESS Temazepam 15 mg 04/23/18 21:00 04/28/18 22:00 Restoril PO 15 mg HS PRN Administration INSOMNIA Objective Remarks: GENERAL: Well-nourished, well-developed young male patient, sitting at the bedside. SKIN: Pale, warm and dry. Leal catheter to right chest wall, dressing dry/ intact, no redness/drainage. Bone marrow biopsy site no redness, drainage or swelling. HEAD: Normocephalic. EYES: No scleral icterus. No injection or drainage. MOUTH: Pale, dry mucous membranes. No thrush. Gums swollen, plaque buildup at receding gum lines. NECK: Supple, trachea midline. CARDIOVASCULAR: +S1/S2. Regular rate and rhythm without murmurs. RESPIRATORY: Anterior breath sounds clear & equal bilaterally. No accessory muscle use. GASTROINTESTINAL: Abdomen soft, non-tender, nondistended. EXTREMITIES: No cyanosis, or edema. MUSCULOSKELETAL: Adequate muscle tone. NEUROLOGICAL: No obvious focal deficit. Awake, alert, and oriented x3. PSYCHIATRIC: Appropriate mood and affect; insight and judgment normal. Assessment/Plan (1) Pancytopenia due to antineoplastic chemotherapy Code(s): D61.810 - Antineoplastic chemotherapy induced pancytopenia; T45.1X5A - Adverse effect of antineoplastic and immunosuppressive drugs, initial encounter Status: Acute (2) AML (acute myeloid leukemia) Code(s): C92.00 - Acute myeloblastic leukemia, not having achieved remission Status: Acute - Plan 04/15 D1 Daunorubicin + Cytarabine 04/16: D2 Daunorubicin + Cytarabine 72: D3 Daunorubicin + Cytarabine 04/18: D4 Cytarabine. Afebrile. Tolerating chemo well. 04/19: D5 Cytarabine continue 04/20: D6 Cytarabine continues. 04/21: D7 Cytarabine continues. Afebrile, tolerating well. 04/22: D8 cytarabine. Afebrile, platelet transfusion this a.m. Now with jaw pain. 04/23: D9 Cytarabine completed overnight. Afebrile. Continued jaw pain. Diarrhea 3 x's/day, +n/v x's 1, + insomnia. 04/24: D10 febrile, T-max 102. Blood cultures pending. Currently on cefepime. ID and ENT consult. 04/25: D11 febrile, T-max 102.5F. Blood cultures no growth 2 days. Antibiotics per ID. ENT deferred consult to oral maxillofacial surgery. 04/28: D14 febrile, T-max 100.6F. Blood cultures no growth and 4 days. Current cultures pending. Day 14 bone marrow biopsy scheduled for today. 04/29: D15 febrile, T-max 101.6F. Blood cultures with no growth. Bone marrow biopsy completed yesterday, patient tolerated well. Results pending. 1. Neutropenic fever. Continues to be febrile and neutropenic. Anticipate neutropenia to continue for another week. Antibiotic support per infectious disease. 2. Continue neutropenic precautions. 3. Anemia and thrombocytopenia. Transfuse for hgb <7.0 and platelet <15K or symptoms. Hgb, 6.9, We will transfuse 1 unit of packed red blood cells today. 4. Swollen gums, erosive gingivitis. Continue viscous lidocaine swish and spit as needed for pain. Continue chlorhexidine antibacterial rinse. Continue antiviral per infectious disease. 5. Status post day 14 bone marrow biopsy. Results pending. Site without swelling, erythema or drainage. - Attending Statement The exam, history, and the medical decision-making described in the above note were completed with the assistance of the mid-level provider. I reviewed and agree with the findings presented. I attest that I had a [id number] encounter with the patient on the same day, and personally performed and documented my assessment and findings in the medical record. Patient seen and examined. He is tolerating his meals well. Denies any nausea or vomiting. Denies any abdominal pain. He remains febrile. He is chronically neutropenic. The bone marrow biopsy results/flow cytometry still pending. Pathology was called to find the results. He will be communicated to the patient as it becomes available. In the meantime antibiotic support will continue. There is no localizing source of infection. His mouth feels better. His cultures remain negative. I anticipate that his fevers will resolve when his neutropenia resolved. (2) AML (acute myeloid leukemia) Qualifiers: Leukemia Active/Remission status: without remission Qualified Code(s): C92.00 - Acute myeloblastic leukemia, not having achieved remission
[2018-04-29] MEDS: Heparin Central Flush 100 UNIT/ML 5 ML Vial IV.FLUSH SCH (11:10)
[2018-04-29] MEDS: Nystatin/Diphenhydramine/Lidocaine Mouthwash (Adult) 120 ML Botttle SWISH-SWAL SCH ×4 (11:12→21:08)
[2018-04-29] MEDS: Vancomycin Inj 1,500 MG in Sodium Chlor 0.9% Inj 500 ML IV.SIG SCH (18:28)
--- NOTE | 2018-04-29 19:30 | P.PNID ---
Subjective Remarks: Patient says feels okay. No chills. Has low-grade fevers. No dysuria, cough or SOB. Cultures negative. 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 The patient has undergone chemotherapy with daunorubicin plus cytarabine. Antibiotics: Acyclovir Fluconazole (Diflucan) 200 mg PO DAILY [facility] Cefepime (Vancomycin Consult Pharmacy) Vancomycin Lines: Leal catheter without evidence of infection. Allergies/Adverse Reactions: Allergies No Known Allergies Allergy (Unknown, Uncoded 04/12/18 14:54) Objective Vital Signs 04/28/18 20:00 04/29/18 00:00 04/29/18 04:00 Temperature 100.2 F H 101.6 F H Pulse Rate 99 H 96 H 85 Respiratory Rate 16 16 Blood Pressure 140/62 131/67 Pulse Oximetry 97 98 04/29/18 04:06 04/29/18 07:53 04/29/18 12:09 Temperature 99.9 F H 101.5 F H 99.4 F Pulse Rate 94 H 106 H 88 Respiratory Rate 18 20 16 Blood Pressure 115/57 L 147/76 H 136/73 Pulse Oximetry 97 95 96 04/29/18 13:31 04/29/18 14:00 Temperature 99.6 F Pulse Rate 90 77 Respiratory Rate 16 Blood Pressure 136/73 131/74 Pulse Oximetry 99 Intake & Output 04/29/18 04/29/18 04/30/18 06:59 18:59 06:59 Intake Total 856 / 856 2672 / 2672 Output Total 1400 / 1400 1300 / 1300 Balance -544 / -544 1372 / 1372 Intake: IV 616 / 616 1232 / 1232 Maxipime Inj 2,000 MG In NS Inj 100 / 100 200 / 200 100 ML @ 200 mls/hr IV.SIG Q8H [facility] Rx#:[id number] Vancomycin Inj 1,600 MG In NS 516 / 516 1032 / 1032 Inj 500 ML @ 250 mls/hr IV.SIG Q6H [facility] Rx#:[id number] Oral 240 / 240 1440 / 1440 Intake (Blood Product) Amt 0 / 0 Rbc As-3 Leukoreduced Irrad 0 / 0 Unit [id number] Output: Urine 1400 / 1400 1300 / 1300 Other: Date of Last Bowel Movement 04/28/18 04/29/18 # Bowel Movements 3 04/27/18 13:40 Blood - Other Aerobic Blood Culture - Preliminary No growth in 2 days 04/27/18 13:40 Blood - Other Anaerobic Blood Culture - Preliminary No growth in 2 days 04/27/18 03:45 Blood - Peripheral Aerobic Blood Culture - Preliminary No growth in 2 days 04/27/18 03:45 Blood - Peripheral Anaerobic Blood Culture - Preliminary No growth in 2 days 04/27/18 01:00 Blood - Line Aerobic Blood Culture - Preliminary No growth in 2 days 04/27/18 01:00 Blood - Line Anaerobic Blood Culture - Preliminary No growth in 2 days 04/25/18 19:15 Blood - Peripheral Aerobic Blood Culture - Preliminary No growth in 4 days 04/25/18 19:15 Blood - Peripheral Anaerobic Blood Culture - Preliminary No growth in 4 days 04/29/18 02:07 Blood - Peripheral Aerobic Blood Culture - Pending 04/29/18 02:07 Blood - Peripheral Anaerobic Blood Culture - Pending 04/29/18 01:20 Blood - Line Aerobic Blood Culture - Pending 04/29/18 01:20 Blood - Line Anaerobic Blood Culture - Pending 04/23/18 21:45 Blood - Peripheral Aerobic Blood Culture - Final No growth in 5 days 04/23/18 21:45 Blood - Peripheral Anaerobic Blood Culture - Final No growth in 5 days 04/23/18 21:50 Blood - Line Aerobic Blood Culture - Final No growth in 5 days 04/23/18 21:50 Blood - Line Anaerobic Blood Culture - Final No growth in 5 days 04/23/18 14:27 Blood - Peripheral Aerobic Blood Culture - Final No growth in 5 days 04/23/18 14:27 Blood - Peripheral Anaerobic Blood Culture - Final No growth in 5 days 04/23/18 11:50 Blood - Line Aerobic Blood Culture - Final No growth in 5 days 04/23/18 11:50 Blood - Line Anaerobic Blood Culture - Final No growth in 5 days Lab - Hematology Results 04/28/18 04/29/18 05:53 04:00 WBC 0.1 L 0.1 L RBC 2.52 L 2.34 L Hgb 7.4 L 6.9 L* Hct 21.1 L 19.7 L* MCV 83.8 84.2 MCH 29.3 29.4 MCHC 35.0 34.9 RDW 15.3 15.6 Plt Count 19 L* D 24 L MPV 7.7 7.7 Prelim Diff (Auto) Manual diff required Manual diff required WBC Differential Manual diff final Manual diff final Lymphocytes % (Manual) 100 H 100 H Abs Neuts (Manual) 0.0 L* 0.0 L* Differential Comment . . Platelet Estimate Rare L Rare L Platelet Morphology Normal Normal RBC Morphology Normal Ovalocytes 1+ H Lab - Chemistry Results 04/28/18 04/29/18 05:53 04:00 Sodium 137 136 Potassium 3.2 L 3.0 L Chloride 103 102 Carbon Dioxide 21.8 21.3 Anion Gap 12 13 BUN 7 5 L Creatinine 0.59 L 0.56 L Estimated GFR Greater than 89 Greater than 89 Random Glucose 95 99 Calcium 8.3 L 8.3 L Phosphorus 3.1 2.9 Magnesium 2.0 2.1 Total Bilirubin 3.2 H 2.6 H AST 16 19 ALT 34 38 Alkaline Phosphatase 125 H 146 H Total Protein 6.2 L 6.0 L Albumin 2.0 L 1.9 L Imaging: ITS Impressions Face CT 04/23/18 00:00 CONCLUSION: 1. No acute fracture. 2. No soft tissue abnormality. Chest X-Ray 04/23/18 21:13 CONCLUSION: Right central line in superior vena cava. No active disease. Abdomen/Pelvis CT 04/26/18 00:00 CONCLUSION: 1. Essentially negative CT of the abdomen and pelvis. There is a proximal transverse colon appears somewhat thickened but this is likely secondary to lack of distention versus less likely colitis. Bone Marrow Biopsy w/ CT 04/28/18 08:00 CONCLUSION: 1. Uncomplicated CT guided bone marrow aspirate. 2. Uncomplicated CT guided bone marrow biopsy. Physical Exam: PHYSICAL EXAMINATION: GENERAL: No acute distress. Awake and alert and oriented. HEENT: Head atraumatic and normocephalic. Extraocular muscles are intact. Pupils reactive to light. No icterus. No conjunctival erythema. Nose: No drainage. Oropharynx: white exudate at the base of the teeth anteriorly has ulcerations at the gumline. NECK: Supple without adenopathy. LUNGS: Clear breath sounds. HEART: Regular S1 and S2. No murmurs. No rubs. No gallops. ABDOMEN: Bowel sounds present, obese, soft. No tenderness. EXTREMITIES: No clubbing, cyanosis or edema. SKIN: No rash. NEUROLOGIC: Cranial nerves II-XII intact. PSYCHIATRIC: Calm , cooperative. Interactive. Assessment and Plan - Plan IMPRESSION: 1. Neutropenic fever. Cultures negative. WBC remained markedly decreased. Continues to have temperature spikes. Cultures negative. 2. Acute myeloid leukemia. Post chemo. 3. Gingivitis. RECOMMENDATIONS: 1. Continue cefepime. 2. Continue vancomycin. 3. Continue acyclovir for possible viral associated gingivitis. 4. Continue Diflucan and Nystatin Swish and swallow. 5. Monitor temps. 6. Monitor for signs of a foci of infection.
[2018-04-29] MEDS: Temazepam 15 MG Capsule PO PRN (21:07)
[2018-04-30] MEDS: Vancomycin Inj 1,500 MG in Sodium Chlor 0.9% Inj 500 ML IV.SIG SCH ×3 (03:24→17:53)
[2018-04-30] MEDS: Acyclovir 200 MG Capsule PO SCH ×3 (05:57→22:06)
[2018-04-30 06:35] LABS: Anion Gap 11 meq/L (5-15); Blood Urea Nitrogen 6 mg/dL (7-18); Carbon Dioxide 23.3 meq/L (21.0-32.0); Chloride 104 meq/L (98-107); Glomerular Filtration Rate Greater Than 89 mL/min (>89); Glucose,Random 98 mg/dL (74-106); Sodium 138 meq/L (136-145)
[2018-04-30 06:38] LABS: Potassium 2.9 meq/L (3.5-5.1)
[2018-04-30 06:51] LABS: Hemoglobin 7.6 gm/dL (13.0-17.0); Mean Corpuscular HGB Conc 34.5 % (32.0-36.0); Mean Corpuscular Hemoglobin 29.2 pg (27.0-34.0); Mean Corpuscular Volume 84.7 fL (80.0-100.0); Mean Platelet Volume 7.6 fL (7.0-11.0); Red Cell Distribution Width 15.3 % (11.6-17.2); White Blood Count 0.2 th/mm3 (4.0-11.0)
[2018-04-30 06:55] LABS: Platelet Count 14 th/mm3 (150-450)
[2018-04-30] MEDS: Acetaminophen 325 MG Tablet PO PRN ×2 (07:29→13:34)
[2018-04-30] MEDS ORDERED: Sodium Chlor 0.9% Inj 250 ML IV.SIG SCH (08:00)
[2018-04-30] MEDS: Potassium Chlor 20 mEq Premix 20 MEQ/100 ML PIGGYBACK IV.SIG SCH ×2 (09:00→13:11)
[2018-04-30] MEDS: Chlorhexidine Gluconate 0.12% Liq 15 ML UDC SWISH-SPIT SCH ×2 (09:05→22:06)
[2018-04-30] MEDS: Nystatin Liq 500,000 UNIT/5 ML UDC SWISH-SWAL SCH ×4 (09:05→20:27)
[2018-04-30] MEDS: Nystatin/Diphenhydramine/Lidocaine Mouthwash (Adult) 120 ML Botttle SWISH-SWAL SCH ×4 (09:05→20:27)
--- NOTE | 2018-04-30 09:33 | P.PNONC ---
Subjective Interval history: Febrile overnight, T-max 102.1 F. Patient sleeping on approach, awakens easily. No complaints at this time. Diarrhea continues to remain controlled. Objective Vital Signs/Intake & Output: Vital Signs 04/29/18 12:00 04/29/18 12:09 04/29/18 13:31 Temperature 99.4 F 99.6 F Pulse Rate 117 H 88 90 Respiratory Rate 16 16 Blood Pressure 136/73 136/73 Pulse Oximetry 96 04/29/18 14:00 04/29/18 16:00 04/29/18 20:00 Temperature 100.3 F H 102 F H Pulse Rate 77 80 89 Respiratory Rate 16 16 Blood Pressure 131/74 140/80 152/80 H Pulse Oximetry 99 97 96 04/29/18 21:40 04/29/18 23:00 04/30/18 00:00 Temperature 101.5 F H 100.3 F H Pulse Rate 85 80 Respiratory Rate 16 Blood Pressure 139/69 Pulse Oximetry 98 04/30/18 04:00 04/30/18 07:22 04/30/18 07:39 Temperature 99.3 F 102.1 F H Pulse Rate 84 104 H 106 H Respiratory Rate 16 16 16 Blood Pressure 123/59 L 135/78 Pulse Oximetry 98 95 Intake & Output 04/29/18 04/30/18 04/30/18 18:59 06:59 18:59 Intake Total 2672 / 2672 2080 / 2080 100 / 100 Output Total 1300 / 1300 400 / 400 Balance 1372 / 1372 1680 / 1680 100 / 100 Weight 102 kg Intake: IV 1232 / 1232 1130 / 1130 100 / 100 Maxipime Inj 2,000 MG In NS Inj 200 / 200 100 / 100 100 / 100 100 ML @ 200 mls/hr IV.SIG Q8H [facility] Rx#:[id number] Vancomycin Inj 1,500 MG In NS 1032 / 1032 1030 / 1030 Inj 500 ML @ 250 mls/hr IV.SIG Q8H [facility] Rx#:[id number] Oral 1440 / 1440 950 / 950 Intake (Blood Product) Amt 0 / 0 Rbc As-3 Leukoreduced Irrad 0 / 0 Unit [id number] Output: Urine 1300 / 1300 400 / 400 Other: Date of Last Bowel Movement 04/29/18 04/29/18 # Bowel Movements 3 Result Diagrams: 04/30/18 05:45 04/30/18 05:45 Laboratory Results: Laboratory Results - last 24 hr 04/27/18 04/28/18 04/29/18 09:41 11:00 08:28 WBC RBC Hgb Hct MCV MCH MCHC RDW Plt Count MPV Prelim Diff (Auto) Differential Comment Sodium Potassium Chloride Carbon Dioxide Anion Gap BUN Creatinine Estimated GFR Random Glucose Calcium Marrow Immunophenotype Blood Type O Positive Antibody Screen Negative MTS Gel Crossmatch See Detail See Detail Bld Prod Order Comment 04/30/18 04/30/18 04/30/18 05:45 05:45 07:59 WBC 0.2 L RBC 2.60 L Hgb 7.6 L Hct 22.0 L MCV 84.7 MCH 29.2 MCHC 34.5 RDW 15.3 Plt Count 14 L* D MPV 7.6 Prelim Diff (Auto) Manual diff required Differential Comment . Sodium 138 Potassium 2.9 L* Chloride 104 Carbon Dioxide 23.3 Anion Gap 11 BUN 6 L Creatinine 0.51 L Estimated GFR Greater than 89 Random Glucose 98 Calcium 8.0 L Marrow Immunophenotype Blood Type Antibody Screen MTS Gel Crossmatch Bld Prod Order Comment Culture Results: Microbiology 04/27/18 13:40 Aerobic Blood Culture - Preliminary Blood - Other No growth in 2 days Anaerobic Blood Culture - Preliminary No growth in 2 days 04/27/18 03:45 Aerobic Blood Culture - Preliminary Blood - Peripheral No growth in 2 days Anaerobic Blood Culture - Preliminary No growth in 2 days 04/27/18 01:00 Aerobic Blood Culture - Preliminary Blood - Line No growth in 2 days Anaerobic Blood Culture - Preliminary No growth in 2 days 04/25/18 19:15 Aerobic Blood Culture - Preliminary Blood - Peripheral No growth in 4 days Anaerobic Blood Culture - Preliminary No growth in 4 days 04/23/18 21:45 Aerobic Blood Culture - Final Blood - Peripheral No growth in 5 days Anaerobic Blood Culture - Final No growth in 5 days 04/23/18 21:50 Aerobic Blood Culture - Final Blood - Line No growth in 5 days Anaerobic Blood Culture - Final No growth in 5 days 04/23/18 14:27 Aerobic Blood Culture - Final Blood - Peripheral No growth in 5 days Anaerobic Blood Culture - Final No growth in 5 days 04/23/18 11:50 Aerobic Blood Culture - Final Blood - Line No growth in 5 days Anaerobic Blood Culture - Final No growth in 5 days Medications: Active Medications Generic Name Dose Route Start Last Admin Trade Name Freq PRN Reason Stop Dose Admin Acetaminophen 650 mg 04/16/18 00:00 04/30/18 07:29 Tylenol PO 650 mg Q4H PRN Administration TEMPERATURE > 100 F Hydrocodone Bitart/Acetaminophen 1 tab 04/23/18 11:51 04/28/18 19:45 Wilmot 7.5/325 PO 1 tab Q6H PRN Administration PAIN SCALE 6 TO 10 Acyclovir 400 mg 04/24/18 22:00 04/30/18 05:57 Zovirax PO 400 mg Q8HR [facility] Administration Chlorhexidine Gluconate 15 ml 04/23/18 21:00 04/30/18 09:05 Peridex 0.12% Liq SWISH-SPIT 15 ml BID [facility] Administration Fluconazole 200 mg 04/26/18 13:00 04/30/18 09:05 Diflucan PO 200 mg DAILY [facility] Administration Heparin Sodium (Porcine) 0 unit 04/16/18 00:00 04/26/18 00:44 Heparin Central Flush IV.FLUSH 200 unit PRN PRN Administration Flush each lumen Heparin Sodium (Porcine) 0 unit 04/16/18 09:00 04/29/18 11:10 Heparin Central Flush IV.FLUSH Not Given DAILY [facility] Cefepime HCl 2,000 mg/ Sodium 100 mls @ 200 mls/hr 04/23/18 13:00 04/30/18 07 :00 Chloride IV.SIG Infused Q8H [facility] Infusion Vancomycin HCl 1,500 mg/ 515 mls @ 250 mls/hr 04/29/18 18:00 04/30/18 05:51 Sodium Chloride IV.SIG Infused Q8H [facility] Infusion Lidocaine HCl 15 ml 04/23/18 10:00 04/26/18 09:08 Xylocaine 2% Viscous SWISH-SPIT 15 ml Q4H PRN Administration PAIN SCALE 6 TO 10 Lorazepam 0.5 mg 04/26/18 08:54 04/26/18 09:10 Ativan Inj IV.PUSH 0.5 mg Q6H PRN Administration MILD NAUSEA Miscellaneous Information 1 each 04/16/18 00:00 04/16/18 13:22 Misc Nursing Information OTHER Not Given [id number] [facility] Morphine Sulfate 2 mg 04/16/18 00:00 04/23/18 12:56 Morphine Inj IV.PUSH 2 mg Q2H PRN Administration PAIN SCALE 6 TO 10 Multi-Ingredient Mouthwash/Gargle 5 ml 04/22/18 13:00 04/30/18 09:05 Magic Mouthwash Adult Liq SWISH-SWAL 5 ml QID [facility] Administration Nystatin 500,000 ml 04/26/18 13:00 04/30/18 09:05 Mycostatin Liq SWISH-SWAL 500,000 ml QID [facility] Administration Ondansetron HCl 4 mg 04/16/18 00:00 04/23/18 10:26 Zofran Inj IV.PUSH 4 mg Q6H PRN Administration NAUSEA OR VOMITING Pantoprazole Sodium 40 mg 04/16/18 09:00 04/30/18 09:05 Protonix PO 40 mg DAILY [facility] Administration Prochlorperazine Edisylate 5 mg 04/26/18 08:51 04/27/18 09:47 Compazine Inj IV.PUSH 5 mg Q6H PRN Administration MILD NAUSEA Sodium Chloride 0 ml 04/16/18 09:00 04/30/18 09:05 Ns Flush IV.FLUSH 2 ml DAILY [facility] Administration Sodium Chloride 0 ml 04/16/18 00:00 04/27/18 09:15 Ns Flush IV.FLUSH 5 ml PRN PRN Administration FLUSH AFTER USING IV ACCESS Temazepam 15 mg 04/23/18 21:00 04/29/18 21:07 Restoril PO 15 mg HS PRN Administration INSOMNIA Objective Remarks: GENERAL: Well-nourished, well-developed young male patient, sleeping, in no acute distress. Awakens easily. SKIN: Pale, warm and dry. Lela catheter to right chest wall, dressing dry/ intact, no redness/drainage. HEAD: Normocephalic. EYES: No scleral icterus. No injection or drainage. MOUTH: Bolt, moist mucous membranes. No thrush. Gums swollen, plaque buildup at receding gum lines. NECK: Supple, trachea midline. CARDIOVASCULAR: +S1/S2. Regular rate and rhythm without murmurs. RESPIRATORY: Anterior breath sounds clear & equal bilaterally. No accessory muscle use. GASTROINTESTINAL: Abdomen soft, non-tender, nondistended. EXTREMITIES: No cyanosis, or edema. MUSCULOSKELETAL: Adequate muscle tone. NEUROLOGICAL: No obvious focal deficit. Awake, alert, and oriented x3. PSYCHIATRIC: Appropriate mood and affect; insight and judgment normal. Assessment/Plan (1) Pancytopenia due to antineoplastic chemotherapy Code(s): D61.810 - Antineoplastic chemotherapy induced pancytopenia; T45.1X5A - Adverse effect of antineoplastic and immunosuppressive drugs, initial encounter Status: Acute (2) AML (acute myeloid leukemia) Code(s): C92.00 - Acute myeloblastic leukemia, not having achieved remission Status: Acute - Plan 04/15 D1 Daunorubicin + Cytarabine 04/16: D2 Daunorubicin + Cytarabine 04/17: D3 Daunorubicin + Cytarabine 04/18: D4 Cytarabine. Afebrile. Tolerating chemo well. 04/19: D5 Cytarabine continue 04/20: D6 Cytarabine continues. 04/21: D7 Cytarabine continues. Afebrile, tolerating well. 04/22: D8 cytarabine. Afebrile, platelet transfusion this a.m. Now with jaw pain. 04/23: D9 Cytarabine completed overnight. Afebrile. Continued jaw pain. Diarrhea 3 x's/day, +n/v x's 1, + insomnia. 04/24: D10 febrile, T-max 102. Blood cultures pending. Currently on cefepime. ID and ENT consult. 04/25: D11 febrile, T-max 102.5F. Blood cultures no growth 2 days. Antibiotics per ID. ENT deferred consult to oral maxillofacial surgery. 04/28: D14 febrile, T-max 100.6F. Blood cultures no growth and 4 days. Current cultures pending. Day 14 bone marrow biopsy scheduled for today. 04/29: D15 febrile, T-max 101.6F. Blood cultures with no growth. Bone marrow biopsy completed yesterday, patient tolerated well. Results pending. 04/30: D16 febrile, T-max 102.1 F. Blood cultures continue with no growth. Bone marrow biopsy pending. 1. Neutropenic fever. Continues to be febrile and neutropenic. Antibiotic support per infectious disease. 2. Continue neutropenic precautions. 3. Anemia and thrombocytopenia. Transfuse for hgb <7.0 and platelet <15K or symptoms. Hgb, 7.6, platelets 14 K, we will transfuse 1 unit of irradiated platelets today. 4. Swollen gums, erosive gingivitis. Continue viscous lidocaine swish and spit as needed for pain. Continue chlorhexidine antibacterial rinse. Continue antiviral per infectious disease. 5. Hypokalemia. Attending managing with potassium replacement IV today. 6. continue supportive care. - Attending Statement The exam, history, and the medical decision-making described in the above note were completed with the assistance of the mid-level provider. I reviewed and agree with the findings presented. I attest that I had a [id number] encounter with the patient on the same day, and personally performed and documented my assessment and findings in the medical record. Patient with alopecia recently shaved his head. He seems more despondent today. Offers no complaints. He has a resolving hematoma and a scab the right posterior iliac crest area. No signs of infection. He remains febrile and pancytopenic. Preliminary from flow cytometry shows residual hypo-cellular marrow with 2.5% blasts. The bone marrow biopsy will be reviewed with pathology tomorrow. Defer making any decision pending the review of the bone marrow tomorrow. Potassium will be replaced. Magnesium is checked. (2) AML (acute myeloid leukemia) Qualifiers: Leukemia Active/Remission status: without remission Qualified Code(s): C92.00 - Acute myeloblastic leukemia, not having achieved remission
[2018-04-30 09:54] LABS: Lymphocytes 92 % (9-44); Monocytes 8 % (0-8)
[2018-04-30 09:55] LABS: Platelet Estimate Rare (Normal); Platelet Morphology Normal (Normal)
[2018-04-30] MEDS: Heparin Central Flush 100 UNIT/ML 5 ML Vial IV.FLUSH SCH (10:37)
--- NOTE | 2018-04-30 14:06 | P.PNFP ---
Subjective Interval history: Pt seen and examined for f/u of AML s/p induction chemotherapy and neutropenic fever. Parents present at the bedside. Tmax 102.1 this AM. Pt has no complaints except for loose stools. Denies chills, cough, rash, N/V, abdominal pain. Results - Labs Result diagrams: 04/30/18 05:45 04/30/18 05:45 Abnormal lab results 04/27/18 04/29/18 04/30/18 Range/Units 09:41 08:28 05:45 WBC 0.2 L (4.0-11.0) th/mm3 RBC 2.60 L (4.50-5.90) mil/mm3 Hgb 7.6 L (13.0-17.0) gm/dL Hct 22.0 L (39.0-51.0) % Plt Count 14 L* D (150-450) th/mm3 Lymphocytes % (Manual) 92 H (9-44) % Abs Neuts (Manual) 0.0 L* (1.8-7.7) th/mm3 Platelet Estimate Rare L (Normal) Potassium (3.5-5.1) meq/L BUN (7-18) mg/dL Creatinine (0.60-1.30) mg/dL Calcium (8.5-10.1) mg/dL MTS Gel Crossmatch See Detail See Detail 04/30/18 Range/Units 05:45 WBC (4.0-11.0) th/mm3 RBC (4.50-5.90) mil/mm3 Hgb (13.0-17.0) gm/dL Hct (39.0-51.0) % Plt Count (150-450) th/mm3 Lymphocytes % (Manual) (9-44) % Abs Neuts (Manual) (1.8-7.7) th/mm3 Platelet Estimate (Normal) Potassium 2.9 L* (3.5-5.1) meq/L BUN 6 L (7-18) mg/dL Creatinine 0.51 L (0.60-1.30) mg/dL Calcium 8.0 L (8.5-10.1) mg/dL MTS Gel Crossmatch Short CBC 04/30/18 Range/Units 05:45 WBC 0.2 L (4.0-11.0) th/mm3 Hgb 7.6 L (13.0-17.0) gm/dL Hct 22.0 L (39.0-51.0) % Plt Count 14 L* D (150-450) th/mm3 BMP 04/30/18 05:45 Sodium 138 Potassium 2.9 L* Chloride 104 Carbon Dioxide 23.3 BUN 6 L Creatinine 0.51 L Calcium 8.0 L Physical Exam Vital signs: Vital Signs 04/29/18 16:00 04/29/18 20:00 04/29/18 21:40 Temperature 100.3 F H 102 F H 101.5 F H Pulse Rate 80 89 Respiratory Rate 16 16 Blood Pressure 140/80 152/80 H Pulse Oximetry 97 96 04/29/18 23:00 04/30/18 00:00 04/30/18 04:00 Temperature 100.3 F H 99.3 F Pulse Rate 85 80 84 Respiratory Rate 16 16 Blood Pressure 139/69 123/59 L Pulse Oximetry 98 98 04/30/18 07:22 04/30/18 07:39 04/30/18 10:47 Temperature 102.1 F H 99.4 F Pulse Rate 104 H 106 H 84 Respiratory Rate 16 16 16 Blood Pressure 135/78 135/76 Pulse Oximetry 95 95 04/30/18 11:23 04/30/18 13:23 04/30/18 13:52 Temperature 99.6 F 101.3 F H Pulse Rate 77 86 Respiratory Rate 18 Blood Pressure 150/83 H Pulse Oximetry 98 Intake & Output 04/29/18 04/30/18 04/30/18 18:59 06:59 18:59 Intake Total 2672 / 2672 2080 / 2080 715 / 715 Output Total 1300 / 1300 400 / 400 Balance 1372 / 1372 1680 / 1680 715 / 715 Weight 102 kg Intake: IV 1232 / 1232 1130 / 1130 715 / 715 Maxipime Inj 2,000 MG In NS Inj 200 / 200 100 / 100 100 / 100 100 ML @ 200 mls/hr IV.SIG Q8H [facility] Rx#:[id number] KCl 20 mEq Premix Inj 20 meq In 100 / 100 100 ml @ 50 mls/hr IV.SIG Q2H [facility] Rx#:[id number] Vancomycin Inj 1,500 MG In NS 1032 / 1032 1030 / 1030 515 / 515 Inj 500 ML @ 250 mls/hr IV.SIG Q8H [facility] Rx#:[id number] Oral 1440 / 1440 950 / 950 Intake (Blood Product) Amt 0 / 0 0 / 0 Plt Pheresis S Leukored/Irr 0 / 0 Unit [id number] Rbc As-3 Leukoreduced Irrad 0 / 0 Unit [id number] Output: Urine 1300 / 1300 400 / 400 Other: Date of Last Bowel Movement 04/29/18 04/29/18 # Bowel Movements 3 Narrative: GENERAL: WN, WD male resting in bed in NAD. SKIN: Warm and dry. HEENT: Shaved head and alopecia. NECK: Supple no tender LAD or JVD. HEART: RRR no m/r/g. LUNGS: CTAB without wheezes or crackles. ABDOMEN: +BS, soft, NT, ND. EXTREMITIES: No LE edema. NEURO: Awake and alert. PSYCH: Flat affect. Assessment and Plan - Assessment (1) AML (acute myeloid leukemia) Code(s): C92.00 - Acute myeloblastic leukemia, not having achieved remission Status: Acute - Assessment and Plan 27 YOWM admitted 04/12/2018 due to generalized weakness. His hemoglobin was 3.3 and platelets 30k on admission. Hematology was consulted , and patient was ultimately diagnosed with AML. 1. Acute myeloid leukemia with pancytopenia - Confirmed with BM biopsy 04/13 - Heme/onc consulted; completed nine days of induction chemo (daunorubicin + cytarabine x 3 days followed by 6 days of cytarabine) - Per oncology: transfuse if Hb<7.0 or PLT<15K - Hb 7.6 this AM, platelets 14K - Transfusing 1 unit of platelets - Continue to monitor CBC closely - 04/28 bone marrow biopsy performed, pending 2. Neutropenic fever - Continues to spike fevers - Tmax 102.1 this AM - White count continues to be extremely low and patient pancytopenic - U/A and CXR unremarkable from 04/23 - Multiple blood cultures have been negative to date - ID following - On Cefepime, vancomycin, and acyclovir - No specific nidus of infection at this time - Continue to closely monitor 3. Diarrhea - Continue to have loose stool - C. diff PCR negative - Likely secondary to chemo 4. Jaw pain - CT with no evidence of necrosis or other pathology 5. Mucositis - Continue Diflucan and Nystatin S&S 6. History of seizure - Seizure precautions 7. Hypokalemia - Potassium continues to be low - Mg WNL - KCl 40 meq IV x 1 - Start daily oral supplementation - Continue to monitor closely DVT prophylaxis: SCDs, encourage ambulation. Chemical anticoagulation C/I given severe thrombocytopenia (1) AML (acute myeloid leukemia) Qualifiers: Leukemia Active/Remission status: without remission Qualified Code(s): C92.00 - Acute myeloblastic leukemia, not having achieved remission
[2018-04-30] MEDS ORDERED: Pharmacy Ordered Lab Info OTHER ONE (17:45)
[2018-04-30] MEDS: Micafungin Inj 150 MG in Sodium Chlor 0.9% Inj 100 ML IV.SIG SCH (20:31)
[2018-04-30] MEDS: Potassium Chloride 25 MEQ Effervescent Tablet PO ONE (23:12)
[2018-04-30] MEDS: Temazepam 15 MG Capsule PO PRN (23:14)
[2018-05-01] MEDS: Acetaminophen 325 MG Tablet PO PRN ×3 (00:08→21:03)
[2018-05-01] MEDS: Potassium Chlor 20 mEq Premix 20 MEQ/100 ML PIGGYBACK IV.SIG SCH ×2 (00:09→02:11)
[2018-05-01] MEDS: Vancomycin Inj 1,500 MG in Sodium Chlor 0.9% Inj 500 ML IV.SIG SCH ×3 (02:10→18:20)
[2018-05-01] MEDS: Potassium Chloride 25 MEQ Effervescent Tablet PO ONE (03:38)
[2018-05-01] MEDS: Acyclovir 200 MG Capsule PO SCH ×3 (06:02→21:04)
[2018-05-01 06:43] LABS: Mean Corpuscular HGB Conc 34.7 % (32.0-36.0); Mean Corpuscular Hemoglobin 29.6 pg (27.0-34.0); Mean Corpuscular Volume 85.3 fL (80.0-100.0); Mean Platelet Volume 7.5 fL (7.0-11.0); Red Blood Count 2.44 mil/mm3 (4.50-5.90); Red Cell Distribution Width 15.2 % (11.6-17.2); White Blood Count 0.2 th/mm3 (4.0-11.0)
[2018-05-01 06:53] LABS: Hematocrit 20.8 % (39.0-51.0); Hemoglobin 7.2 gm/dL (13.0-17.0); Platelet Count 15 th/mm3 (150-450)
[2018-05-01 07:10] LABS: Alanine Aminotransferase 62 U/L (12-78); Anion Gap 10 meq/L (5-15); Aspartate Aminotransferase 31 U/L (15-37); Blood Urea Nitrogen 6 mg/dL (7-18); Carbon Dioxide 21.9 meq/L (21.0-32.0); Chloride 105 meq/L (98-107); Glomerular Filtration Rate Greater Than 89 mL/min (>89); Glucose,Random 98 mg/dL (74-106); Potassium 3.2 meq/L (3.5-5.1); Sodium 137 meq/L (136-145)
[2018-05-01 07:12] LABS: Alkaline Phosphatase 201 U/L (45-117); Total Protein 6.2 g/dL (6.4-8.2)
[2018-05-01 08:43] LABS: Monocytes 12 % (0-8)
[2018-05-01 08:46] LABS: Lymphocytes 84 % (9-44)
[2018-05-01 08:47] LABS: Platelet Estimate Rare (Normal); Platelet Morphology Normal (Normal)
[2018-05-01] MEDS: Heparin Central Flush 100 UNIT/ML 5 ML Vial IV.FLUSH SCH (08:56)
[2018-05-01] MEDS: Nystatin Liq 500,000 UNIT/5 ML UDC SWISH-SWAL SCH ×4 (08:56→21:06)
[2018-05-01] MEDS: Nystatin/Diphenhydramine/Lidocaine Mouthwash (Adult) 120 ML Botttle SWISH-SWAL SCH ×4 (08:57→21:04)
[2018-05-01] MEDS: Chlorhexidine Gluconate 0.12% Liq 15 ML UDC SWISH-SPIT SCH ×2 (08:57→22:47)
--- NOTE | 2018-05-01 10:08 | P.PNONC ---
Subjective Interval history: Febrile, T-max 102.1. Patient lying in bed, in no acute distress. He denies any complaints at this time. Objective Vital Signs/Intake & Output: Vital Signs 04/30/18 10:47 04/30/18 11:23 04/30/18 13:23 Temperature 99.4 F 99.6 F 101.3 F H Pulse Rate 84 77 Respiratory Rate 16 18 Blood Pressure 135/76 150/83 H Pulse Oximetry 95 98 04/30/18 13:52 04/30/18 16:00 04/30/18 20:00 Temperature 99.6 F Pulse Rate 86 96 H 84 Respiratory Rate 16 Blood Pressure 130/66 Pulse Oximetry 98 05/01/18 00:00 05/01/18 01:05 05/01/18 04:00 Temperature 101.5 F H 100.2 F H 99.9 F H Pulse Rate 90 90 Respiratory Rate 15 14 Blood Pressure 152/88 H 136/65 Pulse Oximetry 98 96 05/01/18 06:07 05/01/18 06:40 05/01/18 07:00 Temperature 102.1 F H 99.9 F H Pulse Rate 94 H Respiratory Rate Blood Pressure Pulse Oximetry 05/01/18 07:48 Temperature 99.8 F H Pulse Rate 103 H Respiratory Rate 18 Blood Pressure 142/69 H Pulse Oximetry 96 Intake & Output 04/30/18 05/01/18 05/01/18 18:59 06:59 18:59 Intake Total 2735 / 2735 2830 / 2830 Output Total 2475 / 2475 700 / 700 Balance 260 / 260 2130 / 2130 Weight 102 kg Intake: IV 815 / 815 1630 / 1630 Maxipime Inj 2,000 MG In NS Inj 100 / 100 300 / 300 100 ML @ 200 mls/hr IV.SIG Q8H [facility] Rx#:[id number] Mycamine Inj 150 MG In NS Inj 100 / 100 100 ML @ 100 mls/hr IV.SIG Q24H [facility] Rx#:[id number] KCl 20 mEq Premix Inj 20 meq In 100 / 100 200 / 200 100 ml @ 50 mls/hr IV.SIG Q2H [facility] Rx#:[id number] Vancomycin Inj 1,500 MG In NS 515 / 515 1030 / 1030 Inj 500 ML @ 250 mls/hr IV.SIG Q8H [facility] Rx#:[id number] Oral 1920 / 1920 1200 / 1200 Intake (Blood Product) Amt 0 / 0 Plt Pheresis S Leukored/Irr 0 / 0 Unit [id number] Output: Urine 2475 / 2475 700 / 700 Other: Date of Last Bowel Movement 04/30/18 04/30/18 05/01/18 # Bowel Movements 3 Result Diagrams: 05/01/18 06:00 05/01/18 06:00 Laboratory Results: Laboratory Results - last 24 hr 04/30/18 04/30/18 04/30/18 07:59 11:15 17:45 WBC RBC Hgb Hct MCV MCH MCHC RDW Plt Count MPV Prelim Diff (Auto) WBC Differential Seg Neuts % (Manual) Lymphocytes % (Manual) Monocytes % (Manual) Abs Neuts (Manual) Differential Comment Platelet Estimate Platelet Morphology Sodium Potassium Chloride Carbon Dioxide Anion Gap BUN Creatinine Estimated GFR Random Glucose Calcium Magnesium 1.8 Total Bilirubin AST ALT Alkaline Phosphatase Total Protein Albumin Vancomycin Trough 11.2 H Bld Prod Order Comment 04/30/18 05/01/18 05/01/18 19:07 06:00 06:00 WBC 0.2 L RBC 2.44 L Hgb 7.2 L Hct 20.8 L* MCV 85.3 MCH 29.6 MCHC 34.7 RDW 15.2 Plt Count 15 L* MPV 7.5 Prelim Diff (Auto) Manual diff required WBC Differential Manual diff final Seg Neuts % (Manual) 4 L Lymphocytes % (Manual) 84 H Monocytes % (Manual) 12 H Abs Neuts (Manual) 0.0 L* Differential Comment . Platelet Estimate Rare L Platelet Morphology Normal Sodium 137 Potassium 2.8 L* 3.2 L Chloride 105 Carbon Dioxide 21.9 Anion Gap 10 BUN 6 L Creatinine 0.47 L Estimated GFR Greater than 89 Random Glucose 98 Calcium 8.0 L Magnesium Total Bilirubin 2.1 H AST 31 ALT 62 Alkaline Phosphatase 201 H Total Protein 6.2 L Albumin 2.0 L Vancomycin Trough Bld Prod Order Comment Culture Results: Microbiology 04/29/18 02:07 Aerobic Blood Culture - Preliminary Blood - Peripheral No growth in 1 day Anaerobic Blood Culture - Preliminary No growth in 1 day 04/29/18 01:20 Aerobic Blood Culture - Preliminary Blood - Line No growth in 1 day Anaerobic Blood Culture - Preliminary No growth in 1 day 04/27/18 13:40 Aerobic Blood Culture - Preliminary Blood - Other No growth in 3 days Anaerobic Blood Culture - Preliminary No growth in 3 days 04/27/18 03:45 Aerobic Blood Culture - Preliminary Blood - Peripheral No growth in 3 days Anaerobic Blood Culture - Preliminary No growth in 3 days 04/27/18 01:00 Aerobic Blood Culture - Preliminary Blood - Line No growth in 3 days Anaerobic Blood Culture - Preliminary No growth in 3 days 04/25/18 19:15 Aerobic Blood Culture - Final Blood - Peripheral No growth in 5 days Anaerobic Blood Culture - Final No growth in 5 days 04/23/18 21:45 Aerobic Blood Culture - Final Blood - Peripheral No growth in 5 days Anaerobic Blood Culture - Final No growth in 5 days 04/23/18 21:50 Aerobic Blood Culture - Final Blood - Line No growth in 5 days Anaerobic Blood Culture - Final No growth in 5 days 04/23/18 14:27 Aerobic Blood Culture - Final Blood - Peripheral No growth in 5 days Anaerobic Blood Culture - Final No growth in 5 days 04/23/18 11:50 Aerobic Blood Culture - Final Blood - Line No growth in 5 days Anaerobic Blood Culture - Final No growth in 5 days Medications: Active Medications Generic Name Dose Route Start Last Admin Trade Name Freq PRN Reason Stop Dose Admin Acetaminophen 650 mg 04/16/18 00:00 05/01/18 06:10 Tylenol PO 650 mg Q4H PRN Administration TEMPERATURE > 100 F Hydrocodone Bitart/Acetaminophen 1 tab 04/23/18 11:51 04/28/18 19:45 [place] 7.5/325 PO 1 tab Q6H PRN Administration PAIN SCALE 6 TO 10 Acyclovir 400 mg 04/24/18 22:00 05/01/18 06:02 Zovirax PO 400 mg Q8HR [facility] Administration Chlorhexidine Gluconate 15 ml 04/23/18 21:00 05/01/18 08:57 Peridex 0.12% Liq SWISH-SPIT 15 ml BID [facility] Administration Heparin Sodium (Porcine) 0 unit 04/16/18 00:00 04/26/18 00:44 Heparin Central Flush IV.FLUSH 200 unit PRN PRN Administration Flush each lumen Heparin Sodium (Porcine) 0 unit 04/16/18 09:00 05/01/18 08:56 Heparin Central Flush IV.FLUSH 500 unit DAILY [facility] Administration Cefepime HCl 2,000 mg/ Sodium 100 mls @ 200 mls/hr 04/23/18 13:00 05/01/18 06 :34 Chloride IV.SIG Infused Q8H [facility] Infusion Vancomycin HCl 1,500 mg/ 515 mls @ 250 mls/hr 04/29/18 18:00 05/01/18 04:20 Sodium Chloride IV.SIG Infused Q8H [facility] Infusion Micafungin Sodium 150 mg/ 100 mls @ 100 mls/hr 04/30/18 18:00 04/30/18 21:40 Sodium Chloride IV.SIG Infused Q24H [facility] Infusion Lidocaine HCl 15 ml 04/23/18 10:00 04/26/18 09:08 Xylocaine 2% Viscous SWISH-SPIT 15 ml Q4H PRN Administration PAIN SCALE 6 TO 10 Lorazepam 0.5 mg 04/26/18 08:54 05/01/18 02:43 Ativan Inj IV.PUSH 0.5 mg Q6H PRN Administration MILD NAUSEA Miscellaneous Information 1 each 04/16/18 00:00 04/16/18 13:22 Misc Nursing Information OTHER Not Given [id number] [facility] Morphine Sulfate 2 mg 04/16/18 00:00 04/23/18 12:56 Morphine Inj IV.PUSH 2 mg Q2H PRN Administration PAIN SCALE 6 TO 10 Multi-Ingredient Mouthwash/Gargle 5 ml 04/22/18 13:00 05/01/18 08:57 Magic Mouthwash Adult Liq SWISH-SWAL 5 ml QID [facility] Administration Nystatin 500,000 ml 04/26/18 13:00 05/01/18 08:56 Mycostatin Liq SWISH-SWAL 500,000 ml QID [facility] Administration Ondansetron HCl 4 mg 04/16/18 00:00 04/23/18 10:26 Zofran Inj IV.PUSH 4 mg Q6H PRN Administration NAUSEA OR VOMITING Pantoprazole Sodium 40 mg 04/16/18 09:00 05/01/18 08:57 Protonix PO 40 mg DAILY [facility] Administration Potassium Chloride 30 meq 04/30/18 14:00 05/01/18 08:56 Klor-Con 10 PO 05/01/18 13:59 30 meq BID [facility] Administration Prochlorperazine Edisylate 5 mg 04/26/18 08:51 04/27/18 09:47 Compazine Inj IV.PUSH 5 mg Q6H PRN Administration MILD NAUSEA Sodium Chloride 0 ml 04/16/18 09:00 05/01/18 08:57 Ns Flush IV.FLUSH 10 ml DAILY [facility] Administration Sodium Chloride 0 ml 04/16/18 00:00 04/27/18 09:15 Ns Flush IV.FLUSH 5 ml PRN PRN Administration FLUSH AFTER USING IV ACCESS Temazepam 15 mg 04/23/18 21:00 04/30/18 23:14 Restoril PO 15 mg HS PRN Administration INSOMNIA Objective Remarks: GENERAL: Well-nourished, well-developed young male patient, lying in bed, in no acute distress. SKIN: warm and dry. Leal catheter to right chest wall, dressing dry/intact, no redness/drainage. HEAD: Normocephalic. EYES: No scleral icterus. No injection or drainage. MOUTH: [place], moist mucous membranes. No thrush. Gums swollen, plaque buildup at gum lines. NECK: Supple, trachea midline. CARDIOVASCULAR: +S1/S2. Regular rate and rhythm without murmurs. RESPIRATORY: Posterior breath sounds clear & equal bilaterally. No accessory muscle use. GASTROINTESTINAL: Abdomen soft, non-tender, nondistended. EXTREMITIES: No cyanosis, or edema. MUSCULOSKELETAL: Adequate muscle tone. NEUROLOGICAL: No obvious focal deficit. Awake, alert, and oriented x3. PSYCHIATRIC: Appropriate mood and affect; insight and judgment normal. Assessment/Plan (1) Pancytopenia due to antineoplastic chemotherapy Code(s): D61.810 - Antineoplastic chemotherapy induced pancytopenia; T45.1X5A - Adverse effect of antineoplastic and immunosuppressive drugs, initial encounter Status: Acute (2) AML (acute myeloid leukemia) Code(s): C92.00 - Acute myeloblastic leukemia, not having achieved remission Status: Acute - Plan 04/15 D1 Daunorubicin + Cytarabine 04/16: D2 Daunorubicin + Cytarabine 04/17: D3 Daunorubicin + Cytarabine 04/18: D4 Cytarabine. Afebrile. Tolerating chemo well. 04/19: D5 Cytarabine continue 04/20: D6 Cytarabine continues. 04/21: D7 Cytarabine continues. Afebrile, tolerating well. 04/22: D8 cytarabine. Afebrile, platelet transfusion this a.m. Now with jaw pain. 04/23: D9 Cytarabine completed overnight. Afebrile. Continued jaw pain. Diarrhea 3 x's/day, +n/v x's 1, + insomnia. 04/24: D10 febrile, T-max 102. Blood cultures pending. Currently on cefepime. ID and ENT consult. 04/25: D11 febrile, T-max 102.5F. Blood cultures no growth 2 days. Antibiotics per ID. ENT deferred consult to oral maxillofacial surgery. 04/28: D14 febrile, T-max 100.6F. Blood cultures no growth and 4 days. Current cultures pending. Day 14 bone marrow biopsy scheduled for today. 04/29: D15 febrile, T-max 101.6F. Blood cultures with no growth. Bone marrow biopsy completed yesterday, patient tolerated well. Results pending. 04/30: D16 febrile, T-max 102.1 F. Blood cultures continue with no growth. Bone marrow biopsy pending. 05/01: D17 febrile, T-max 102.1F. Blood cultures continue with no growth. Bone marrow biopsy resulted, pending review with pathology. 1. Neutropenic fever. Continues to be febrile and neutropenic. Antibiotic support per infectious disease. 2. Continue neutropenic precautions. 3. Anemia and thrombocytopenia. Transfuse for hgb <7.0 and platelet <15K or symptoms. Hgb, 7.2, platelets 15 K, we will transfuse 1 unit of irradiated platelets today and 1 unit of PRBC. 4. Swollen gums, erosive gingivitis. Continue viscous lidocaine swish and spit as needed for pain. Continue chlorhexidine antibacterial rinse. Continue antiviral per infectious disease. 5. Hypokalemia, improving. Attending managing with potassium replacement. 6. continue supportive care. - Attending Statement The exam, history, and the medical decision-making described in the above note were completed with the assistance of the mid-level provider. I reviewed and agree with the findings presented. I attest that I had a [id number] encounter with the patient on the same day, and personally performed and documented my assessment and findings in the medical record. Pt seen and examined. Pathology reviewed with pathologist, BM empty, fibrosis improve cw with remission Day 14 BM. Noted the flow cytometry results. No additional chemo planned. Continue to support until recovery of cytopenia. Discussed with pt's mother at his request BM results. Anticipate recovery in 1- 2 weeks. Plan dental evaluation in 3 weeks time when blood counts recover. (2) AML (acute myeloid leukemia) Qualifiers: Leukemia Active/Remission status: without remission Qualified Code(s): C92.00 - Acute myeloblastic leukemia, not having achieved remission
[2018-05-01] MEDS ORDERED: Sodium Chlor 0.9% Inj 250 ML IV.SIG SCH (11:00)
--- NOTE | 2018-05-01 13:23 | P.PNFP ---
Subjective Interval history: Pt seen and examined. Continues to spike temperatures with Tmax 102.1 this morning. No complaints. Continues to have loose stools. Denies any pain in his mouth or gums. No CP, SOB, cough, or rash. Results - Labs Result diagrams: 05/01/18 06:00 05/01/18 06:00 Abnormal lab results 04/30/18 04/30/18 05/01/18 Range/Units 17:45 19:07 06:00 WBC 0.2 L (4.0-11.0) th/mm3 RBC 2.44 L (4.50-5.90) mil/mm3 Hgb 7.2 L (13.0-17.0) gm/dL Hct 20.8 L* (39.0-51.0) % Plt Count 15 L* (150-450) th/mm3 Seg Neuts % (Manual) 4 L (16-70) % Lymphocytes % (Manual) 84 H (9-44) % Monocytes % (Manual) 12 H (0-8) % Abs Neuts (Manual) 0.0 L* (1.8-7.7) th/mm3 Platelet Estimate Rare L (Normal) Potassium 2.8 L* (3.5-5.1) meq/L BUN (7-18) mg/dL Creatinine (0.60-1.30) mg/dL Calcium (8.5-10.1) mg/dL Total Bilirubin (0.2-1.0) mg/dL Alkaline Phosphatase (45-117) U/L Total Protein (6.4-8.2) g/dL Albumin (3.4-5.0) g/dL Vancomycin Trough 11.2 H (5.0-10.0) mcg/mL MTS Gel Crossmatch 05/01/18 05/01/18 Range/Units 06:00 10:17 WBC (4.0-11.0) th/mm3 RBC (4.50-5.90) mil/mm3 Hgb (13.0-17.0) gm/dL Hct (39.0-51.0) % Plt Count (150-450) th/mm3 Seg Neuts % (Manual) (16-70) % Lymphocytes % (Manual) (9-44) % Monocytes % (Manual) (0-8) % Abs Neuts (Manual) (1.8-7.7) th/mm3 Platelet Estimate (Normal) Potassium 3.2 L (3.5-5.1) meq/L BUN 6 L (7-18) mg/dL Creatinine 0.47 L (0.60-1.30) mg/dL Calcium 8.0 L (8.5-10.1) mg/dL Total Bilirubin 2.1 H (0.2-1.0) mg/dL Alkaline Phosphatase 201 H (45-117) U/L Total Protein 6.2 L (6.4-8.2) g/dL Albumin 2.0 L (3.4-5.0) g/dL Vancomycin Trough (5.0-10.0) mcg/mL MTS Gel Crossmatch See Detail Short CBC 05/01/18 Range/Units 06:00 WBC 0.2 L (4.0-11.0) th/mm3 Hgb 7.2 L (13.0-17.0) gm/dL Hct 20.8 L* (39.0-51.0) % Plt Count 15 L* (150-450) th/mm3 BMP 04/30/18 05/01/18 19:07 06:00 Sodium 137 Potassium 2.8 L* 3.2 L Chloride 105 Carbon Dioxide 21.9 BUN 6 L Creatinine 0.47 L Calcium 8.0 L Liver Function 05/01/18 Range/Units 06:00 Total Bilirubin 2.1 H (0.2-1.0) mg/dL AST 31 (15-37) U/L ALT 62 (12-78) U/L Alkaline Phosphatase 201 H (45-117) U/L Albumin 2.0 L (3.4-5.0) g/dL Physical Exam Vital signs: Vital Signs 04/30/18 13:23 04/30/18 13:52 04/30/18 16:00 Temperature 101.3 F H Pulse Rate 86 96 H Respiratory Rate Blood Pressure Pulse Oximetry 04/30/18 20:00 05/01/18 00:00 05/01/18 01:05 Temperature 99.6 F 101.5 F H 100.2 F H Pulse Rate 84 90 Respiratory Rate 16 15 Blood Pressure 130/66 152/88 H Pulse Oximetry 98 98 05/01/18 04:00 05/01/18 06:07 05/01/18 06:40 Temperature 99.9 F H 102.1 F H 99.9 F H Pulse Rate 90 Respiratory Rate 14 Blood Pressure 136/65 Pulse Oximetry 96 05/01/18 07:00 05/01/18 07:48 05/01/18 11:00 Temperature 99.8 F H Pulse Rate 94 H 103 H 83 Respiratory Rate 18 Blood Pressure 142/69 H Pulse Oximetry 96 05/01/18 11:07 Temperature 100.1 F H Pulse Rate 81 Respiratory Rate 18 Blood Pressure 142/71 H Pulse Oximetry 97 Intake & Output 04/30/18 05/01/18 05/01/18 18:59 06:59 18:59 Intake Total 2735 / 2735 2830 / 2830 Output Total 2475 / 2475 700 / 700 Balance 260 / 260 2130 / 2130 Weight 102 kg Intake: IV 815 / 815 1630 / 1630 Maxipime Inj 2,000 MG In NS Inj 100 / 100 300 / 300 100 ML @ 200 mls/hr IV.SIG Q8H [facility] Rx#:[id number] Mycamine Inj 150 MG In NS Inj 100 / 100 100 ML @ 100 mls/hr IV.SIG Q24H [facility] Rx#:[id number] KCl 20 mEq Premix Inj 20 meq In 100 / 100 200 / 200 100 ml @ 50 mls/hr IV.SIG Q2H [facility] Rx#:[id number] Vancomycin Inj 1,500 MG In NS 515 / 515 1030 / 1030 Inj 500 ML @ 250 mls/hr IV.SIG Q8H [facility] Rx#:[id number] Oral 1920 / 1920 1200 / 1200 Intake (Blood Product) Amt 0 / 0 Plt Pheresis S Leukored/Irr 0 / 0 Unit [id number] Output: Urine 2475 / 2475 700 / 700 Other: Date of Last Bowel Movement 04/30/18 04/30/18 05/01/18 # Bowel Movements 3 Narrative: GENERAL: WN, WD male resting in bed in NAD. SKIN: Warm and dry. HEENT: Shaved head and alopecia. NECK: Supple no tender LAD or JVD. HEART: RRR no m/r/g. LUNGS: CTAB without wheezes or crackles. ABDOMEN: +BS, soft, NT, ND. EXTREMITIES: No LE edema. NEURO: Awake and alert. PSYCH: Flat affect. Assessment and Plan - Assessment (1) AML (acute myeloid leukemia) Code(s): C92.00 - Acute myeloblastic leukemia, not having achieved remission Status: Acute (2) Pancytopenia Code(s): D61.818 - Other pancytopenia Status: Acute - Assessment and Plan 27 YOWM admitted 04/12/2018 due to generalized weakness. His hemoglobin was 3.3 and platelets 30k on admission. Hematology was consulted, and patient was ultimately diagnosed with AML and has undergone induction chemotherapy. His course has been complicated by neutropenic fever with persistent spikes in temperature. 1. Acute myeloid leukemia with pancytopenia - Confirmed with BM biopsy 04/13 - Heme/onc consulted; completed nine days of induction chemo (daunorubicin + cytarabine x 3 days followed by 6 days of cytarabine) - Per oncology: transfuse if Hb<7.0 or PLT<15K - Hb 7.2 this AM, platelets 15K - Transfusing 1 unit of platelets and 1 units RBCs - Continue to monitor CBC closely - 04/28 bone marrow biopsy performed, flow cytometry consistent with residual AML 2. Neutropenic fever - Continues to spike fevers - Tmax 102.1 this AM - White count continues to be extremely low and patient pancytopenic - U/A and CXR unremarkable from 04/23 - Multiple blood cultures have been negative to date - ID following - On Cefepime, vancomycin, and acyclovir - No specific nidus of infection at this time - Continue to closely monitor 3. Diarrhea - Continue to have loose stool - C. diff PCR negative 4. Jaw pain - CT with no evidence of necrosis or other pathology 5. Mucositis - Continue Diflucan and Nystatin S&S 6. History of seizure - Seizure precautions 7. Hypokalemia - Potassium continues to be low but improved from prior days - Mg WNL - Increase to KCl PO 40 BID - Continue to monitor closely DVT prophylaxis: SCDs, encourage ambulation. Chemical anticoagulation C/I given severe thrombocytopenia Discharge Planning: Still spiking temperatures, neutropenic precautions (1) AML (acute myeloid leukemia) Qualifiers: Leukemia Active/Remission status: without remission Qualified Code(s): C92.00 - Acute myeloblastic leukemia, not having achieved remission
[2018-05-01] MEDS ORDERED: Acetaminophen 325 MG Tablet PO PRN (13:55)
--- NOTE | 2018-05-01 16:13 | P.PNID ---
Subjective Remarks: Patient says feels okay. Still having fevers. Does not feel bad when he has fever. T-max of 102 this morning. No chills. No dysuria, cough or SOB. No headache. Mouth does not feel sore. Cultures negative. 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 The patient has undergone chemotherapy with daunorubicin plus cytarabine. Antibiotics: Acyclovir Cefepime Micafungin Vancomycin Lines: Leal catheter without evidence of infection. Allergies/Adverse Reactions: Allergies No Known Allergies Allergy (Unknown, Uncoded 04/12/18 14:54) Objective Vital Signs 04/30/18 20:00 05/01/18 00:00 05/01/18 01:05 Temperature 99.6 F 101.5 F H 100.2 F H Pulse Rate 84 90 Respiratory Rate 16 15 Blood Pressure 130/66 152/88 H Pulse Oximetry 98 98 05/01/18 04:00 05/01/18 06:07 05/01/18 06:40 Temperature 99.9 F H 102.1 F H 99.9 F H Pulse Rate 90 Respiratory Rate 14 Blood Pressure 136/65 Pulse Oximetry 96 05/01/18 07:00 05/01/18 07:48 05/01/18 11:00 Temperature 99.8 F H Pulse Rate 94 H 103 H 83 Respiratory Rate 18 Blood Pressure 142/69 H Pulse Oximetry 96 05/01/18 11:07 05/01/18 14:42 05/01/18 14:57 Temperature 100.1 F H 101 F H 101 F H Pulse Rate 81 104 H 106 H Respiratory Rate 18 18 18 Blood Pressure 142/71 H 137/77 137/77 Pulse Oximetry 97 97 96 05/01/18 15:00 05/01/18 15:08 05/01/18 15:40 Temperature 101 F H 101.5 F H Pulse Rate 88 90 108 H Respiratory Rate 18 18 Blood Pressure 141/76 H 148/76 H Pulse Oximetry 98 98 05/01/18 15:56 Temperature 101.1 F H Pulse Rate 87 Respiratory Rate 18 Blood Pressure 141/75 H Pulse Oximetry 95 Intake & Output 04/30/18 05/01/18 05/01/18 18:59 06:59 18:59 Intake Total 2735 / 2735 2830 / 2830 895 / 895 Output Total 2475 / 2475 700 / 700 Balance 260 / 260 2130 / 2130 895 / 895 Weight 102 kg Intake: IV 815 / 815 1630 / 1630 615 / 615 Maxipime Inj 2,000 MG In NS Inj 100 / 100 300 / 300 100 / 100 100 ML @ 200 mls/hr IV.SIG Q8H [facility] Rx#:[id number] Mycamine Inj 150 MG In NS Inj 100 / 100 100 ML @ 100 mls/hr IV.SIG Q24H [facility] Rx#:[id number] KCl 20 mEq Premix Inj 20 meq In 100 / 100 200 / 200 100 ml @ 50 mls/hr IV.SIG Q2H [facility] Rx#:[id number] Vancomycin Inj 1,500 MG In NS 515 / 515 1030 / 1030 515 / 515 Inj 500 ML @ 250 mls/hr IV.SIG Q8H [facility] Rx#:[id number] Oral 1920 / 1920 1200 / 1200 Intake (Blood Product) Amt 0 / 0 280 / 280 Plt Pheresis S Leukored/Irr 0 / 0 Unit [id number] Prepooled Plts Leuko/Irr 5d 280 / 280 Unit [id number] Rbc As-3 Leukoreduced Irrad 0 / 0 Unit [id number] Output: Urine 2475 / 2475 700 / 700 Other: Date of Last Bowel Movement 04/30/18 04/30/18 05/01/18 # Bowel Movements 3 04/29/18 02:07 Blood - Peripheral Aerobic Blood Culture - Preliminary No growth in 2 days 04/29/18 02:07 Blood - Peripheral Anaerobic Blood Culture - Preliminary No growth in 2 days 04/29/18 01:20 Blood - Line Aerobic Blood Culture - Preliminary No growth in 2 days 04/29/18 01:20 Blood - Line Anaerobic Blood Culture - Preliminary No growth in 2 days 04/27/18 13:40 Blood - Other Aerobic Blood Culture - Preliminary No growth in 4 days 04/27/18 13:40 Blood - Other Anaerobic Blood Culture - Preliminary No growth in 4 days 04/27/18 03:45 Blood - Peripheral Aerobic Blood Culture - Preliminary No growth in 4 days 04/27/18 03:45 Blood - Peripheral Anaerobic Blood Culture - Preliminary No growth in 4 days 04/27/18 01:00 Blood - Line Aerobic Blood Culture - Preliminary No growth in 4 days 04/27/18 01:00 Blood - Line Anaerobic Blood Culture - Preliminary No growth in 4 days 04/25/18 19:15 Blood - Peripheral Aerobic Blood Culture - Final No growth in 5 days 04/25/18 19:15 Blood - Peripheral Anaerobic Blood Culture - Final No growth in 5 days Lab - Hematology Results 04/30/18 05/01/18 05:45 06:00 WBC 0.2 L 0.2 L RBC 2.60 L 2.44 L Hgb 7.6 L 7.2 L Hct 22.0 L 20.8 L* MCV 84.7 85.3 MCH 29.2 29.6 MCHC 34.5 34.7 RDW 15.3 15.2 Plt Count 14 L* D 15 L* MPV 7.6 7.5 Prelim Diff (Auto) Manual diff required Manual diff required WBC Differential Manual diff final Manual diff final Seg Neuts % (Manual) 4 L Lymphocytes % (Manual) 92 H 84 H Monocytes % (Manual) 8 12 H Abs Neuts (Manual) 0.0 L* 0.0 L* Differential Comment . . Platelet Estimate Rare L Rare L Platelet Morphology Normal Normal Lab - Chemistry Results 04/30/18 04/30/18 04/30/18 05:45 11:15 19:07 Sodium 138 Potassium 2.9 L* 2.8 L* Chloride 104 Carbon Dioxide 23.3 Anion Gap 11 BUN 6 L Creatinine 0.51 L Estimated GFR Greater than 89 Random Glucose 98 Calcium 8.0 L Magnesium 1.8 Total Bilirubin AST ALT Alkaline Phosphatase Total Protein Albumin 05/01/18 06:00 Sodium 137 Potassium 3.2 L Chloride 105 Carbon Dioxide 21.9 Anion Gap 10 BUN 6 L Creatinine 0.47 L Estimated GFR Greater than 89 Random Glucose 98 Calcium 8.0 L Magnesium Total Bilirubin 2.1 H AST 31 ALT 62 Alkaline Phosphatase 201 H Total Protein 6.2 L Albumin 2.0 L Imaging: ITS Impressions Face CT 04/23/18 00:00 CONCLUSION: 1. No acute fracture. 2. No soft tissue abnormality. Chest X-Ray 04/23/18 21:13 CONCLUSION: Right central line in superior vena cava. No active disease. Abdomen/Pelvis CT 04/26/18 00:00 CONCLUSION: 1. Essentially negative CT of the abdomen and pelvis. There is a proximal transverse colon appears somewhat thickened but this is likely secondary to lack of distention versus less likely colitis. Bone Marrow Biopsy w/ CT 04/28/18 08:00 CONCLUSION: 1. Uncomplicated CT guided bone marrow aspirate. 2. Uncomplicated CT guided bone marrow biopsy. Physical Exam: PHYSICAL EXAMINATION: GENERAL: No acute distress. Awake and alert and oriented. HEENT: Head atraumatic and normocephalic. Extraocular muscles are intact. Pupils reactive to light. No icterus. No conjunctival erythema. Nose: No drainage. Oropharynx: No exudate at the base of the teeth. No visible. NECK: Supple without adenopathy. LUNGS: Breath sounds are clear. HEART: Regular S1 and S2. No murmurs. No rubs. No gallops. ABDOMEN: Bowel sounds present, obese, soft. No tenderness. EXTREMITIES: No clubbing, cyanosis or edema. SKIN: No rash. NEUROLOGIC: Cranial nerves II-XII intact. PSYCHIATRIC: Calm , cooperative. Interactive. Assessment and Plan - Plan IMPRESSION: 1. Neutropenic fever. Cultures negative. WBC remained markedly decreased. Continues to have temperature spikes. Cultures negative. 2. Acute myeloid leukemia. Post chemo. 3. Gingivitis improved. RECOMMENDATIONS: 1. Continue cefepime. 2. Continue vancomycin. 3. Continue acyclovir for possible viral associated gingivitis. 4. Continue micafungin 5. Monitor temps. 6. Monitor for signs of infection.
[2018-05-01] MEDS ORDERED: Pharmacy Ordered Lab Info OTHER ONE (17:45)
[2018-05-01] MEDS: Micafungin Inj 150 MG in Sodium Chlor 0.9% Inj 100 ML IV.SIG SCH (21:02)
[2018-05-02] MEDS: Vancomycin Inj 1,500 MG in Sodium Chlor 0.9% Inj 500 ML IV.SIG SCH ×2 (02:20→11:24)
[2018-05-02] MEDS: Acetaminophen 325 MG Tablet PO PRN ×4 (04:14→22:59)
[2018-05-02] MEDS: Acyclovir 200 MG Capsule PO SCH ×3 (05:44→23:00)
[2018-05-02 06:00] LABS: Hematocrit 22.4 % (39.0-51.0); Hemoglobin 7.8 gm/dL (13.0-17.0); Mean Corpuscular HGB Conc 34.7 % (32.0-36.0); Mean Corpuscular Volume 83.6 fL (80.0-100.0); Mean Platelet Volume 7.5 fL (7.0-11.0); Platelet Count 23 th/mm3 (150-450); Red Blood Count 2.68 mil/mm3 (4.50-5.90); Red Cell Distribution Width 15.2 % (11.6-17.2); White Blood Count 0.2 th/mm3 (4.0-11.0)
[2018-05-02 06:22] LABS: Anion Gap 12 meq/L (5-15); Blood Urea Nitrogen 5 mg/dL (7-18); Carbon Dioxide 22.5 meq/L (21.0-32.0); Chloride 104 meq/L (98-107); Glomerular Filtration Rate Greater Than 89 mL/min (>89); Glucose,Random 107 mg/dL (74-106); Sodium 138 meq/L (136-145)
[2018-05-02 06:29] LABS: Potassium 2.9 meq/L (3.5-5.1)
[2018-05-02 07:25] LABS: Lymphocytes 100 % (9-44); Platelet Estimate Rare (Normal); Platelet Morphology Normal (Normal)
[2018-05-02] MEDS ORDERED: Potassium Chlor 40 mEq Premix 40 MEQ/100 ML PIGGYBACK IV.SIG ONE ×2 (08:40→20:43)
--- NOTE | 2018-05-02 09:25 | P.PN ---
Physical Exam Vital signs: Vital Signs 05/01/18 11:00 05/01/18 11:07 05/01/18 14:42 Temperature 100.1 F H 101 F H Pulse Rate 83 81 104 H Respiratory Rate 18 18 Blood Pressure 142/71 H 137/77 Pulse Oximetry 97 97 05/01/18 14:57 05/01/18 15:00 05/01/18 15:08 Temperature 101 F H 101 F H Pulse Rate 106 H 88 90 Respiratory Rate 18 18 Blood Pressure 137/77 141/76 H Pulse Oximetry 96 98 05/01/18 15:40 05/01/18 15:56 05/01/18 18:13 Temperature 101.5 F H 101.1 F H 99.7 F H Pulse Rate 108 H 87 79 Respiratory Rate 18 18 18 Blood Pressure 148/76 H 141/75 H 128/65 Pulse Oximetry 98 95 98 05/01/18 20:00 05/02/18 00:00 05/02/18 00:20 Temperature 102.3 F H 99.2 F Pulse Rate 71 91 H 87 Respiratory Rate 18 18 Blood Pressure 133/64 150/81 H Pulse Oximetry 97 97 05/02/18 04:00 Temperature 102.3 F H Pulse Rate 95 H Respiratory Rate Blood Pressure 148/80 H Pulse Oximetry 96 Intake & Output 05/01/18 05/02/18 05/02/18 18:59 06:59 18:59 Intake Total 2595 / 2595 1470 / 1470 100 / 100 Output Total 600 / 600 300 / 300 Balance 1994 / 1994 1170 / 1170 100 / 100 Weight 105.4 kg Intake: IV 615 / 615 1230 / 1230 100 / 100 Maxipime Inj 2,000 MG In NS Inj 100 / 100 100 / 100 100 / 100 100 ML @ 200 mls/hr IV.SIG Q8H [facility] Rx#:[id number] Mycamine Inj 150 MG In NS Inj 100 / 100 100 ML @ 100 mls/hr IV.SIG Q24H [facility] Rx#:[id number] Vancomycin Inj 1,500 MG In NS 515 / 515 1030 / 1030 Inj 500 ML @ 250 mls/hr IV.SIG Q8H [facility] Rx#:[id number] Oral 1700 / 1700 240 / 240 Intake (Blood Product) Amt 280 / 280 Prepooled Plts Leuko/Irr 5d 280 / 280 Unit [id number] Rbc As-3 Leukoreduced Irrad 0 / 0 Unit [id number] Output: Urine 600 / 600 300 / 300 Other: # Voids 2 Date of Last Bowel Movement 05/01/18 05/01/18 # Bowel Movements 6 1 Narrative: Subjective Interval history: The patient is in nad. With fevers and chills. No cough. No urinary complaints. NO diarrhea . No rash. K is low patient with decreased appetite. Physical Exam GENERAL: Young male, appears in nad. SKIN: Warm and dry. HEENT: Shaved head and alopecia. NECK: Supple no tender LAD or JVD. HEART: RRR no m/r/g. LUNGS: CTAB without wheezes or crackles. ABDOMEN: +BS, soft, NT, ND. EXTREMITIES: No LE edema. NEURO: Awake and alert. PSYCH: Flat affect. Assessment and Plan 27 YOWM admitted 04/12/2018 due to generalized weakness. His hemoglobin was 3.3 and platelets 30k on admission. Hematology was consulted, and patient was ultimately diagnosed with AML and has undergone induction chemotherapy. His course has been complicated by neutropenic fever with persistent spikes in temperature. 1. Acute myeloid leukemia with pancytopenia - Confirmed with BM biopsy 04/13 - Heme/onc consulted and ff, completed nine days of induction chemo ( daunorubicin + cytarabine x 3 days followed by 6 days of cytarabine) - Per oncology: transfuse if Hb<7.0 or PLT<15K - Hb 7.2 this AM, platelets 15K - Transfused 1 unit of platelets and 1 units RBCs - Continue to monitor CBC closely - 04/28 bone marrow biopsy performed, flow cytometry consistent with residual AML 2. Neutropenic fever - Continues persistent to spike fevers - Tmax 102.3 this AM - White count continues to be extremely low and patient pancytopenic - U/A and CXR unremarkable from 04/23 - Multiple blood cultures have been negative to date - ID following - On Cefepime, vancomycin, and acyclovir - No specific nidus of infection at this time - Continue to closely monitor 3. Diarrhea - Continue to have loose stool - C. diff PCR negative 4. Jaw pain - CT with no evidence of necrosis or other pathology 5. Mucositis - Continue Diflucan and Nystatin S&S 6. History of seizure - Seizure precautions 7. Hypokalemia - Potassium continues to be low but improved from prior days - Mg WNL - Increase to KCl PO 40 BID - Continue to monitor closely 8. Decreased appetite with hypokalemia/ Replace K and monitor. Check mag as well and replace. Add MVT DVT prophylaxis: SCDs, encourage ambulation. Chemical anticoagulation C/I given severe thrombocytopenia Discharge Planning: Still spiking temperatures, neutropenic precautions Discussed with the patient, nurse, family at bedside, hem/onc Results - Labs CBC & Chem 7: 05/02/18 04:00 05/02/18 04:00 Laboratory Results - last 24 hr 04/28/18 04/29/18 05/01/18 11:00 08:28 10:17 WBC RBC Hgb Hct MCV MCH MCHC RDW Plt Count MPV Prelim Diff (Auto) WBC Differential Lymphocytes % (Manual) Differential Comment Platelet Estimate Platelet Morphology Sodium Potassium Chloride Carbon Dioxide Anion Gap BUN Creatinine Estimated GFR Random Glucose Calcium Vancomycin Trough Marrow Immunophenotype * MTS Gel Crossmatch See Detail See Detail Bld Prod Order Comment 05/01/18 05/02/18 05/02/18 18:30 04:00 04:00 WBC 0.2 L RBC 2.68 L Hgb 7.8 L Hct 22.4 L MCV 83.6 MCH 29.0 MCHC 34.7 RDW 15.2 Plt Count 23 L D MPV 7.5 Prelim Diff (Auto) Manual diff required WBC Differential Manual diff final Lymphocytes % (Manual) 100 H Differential Comment . Platelet Estimate Rare L Platelet Morphology Normal Sodium 138 Potassium 2.9 L* Chloride 104 Carbon Dioxide 22.5 Anion Gap 12 BUN 5 L Creatinine 0.52 L Estimated GFR Greater than 89 Random Glucose 107 H Calcium 8.0 L Vancomycin Trough 11.6 H Marrow Immunophenotype MTS Gel Crossmatch Bld Prod Order Comment Microbiology 04/29/18 02:07 Blood - Peripheral Aerobic Blood Culture - Preliminary No growth in 2 days 04/29/18 02:07 Blood - Peripheral Anaerobic Blood Culture - Preliminary No growth in 2 days 04/29/18 01:20 Blood - Line Aerobic Blood Culture - Preliminary No growth in 2 days 04/29/18 01:20 Blood - Line Anaerobic Blood Culture - Preliminary No growth in 2 days 04/27/18 13:40 Blood - Other Aerobic Blood Culture - Preliminary No growth in 4 days 04/27/18 13:40 Blood - Other Anaerobic Blood Culture - Preliminary No growth in 4 days 04/27/18 03:45 Blood - Peripheral Aerobic Blood Culture - Preliminary No growth in 4 days 04/27/18 03:45 Blood - Peripheral Anaerobic Blood Culture - Preliminary No growth in 4 days 04/27/18 01:00 Blood - Line Aerobic Blood Culture - Preliminary No growth in 4 days 04/27/18 01:00 Blood - Line Anaerobic Blood Culture - Preliminary No growth in 4 days - Procedures BM biopsy Leal catheter placement Echo 04/14/2018 The left ventricular systolic function is hyperdynamic with an estimated ejection fraction in the range of 65- 70%. Normal left ventricular size. Wall thickness is normal. No regional wall motion abnormalities are present. Trace mitral valve regurgitation. The left ventricular systolic function is hyperdynamic with an estimated ejection fraction in the range of 65- 70%. Normal left ventricular size. Wall thickness is normal. No regional wall motion abnormalities are present. Trace mitral valve regurgitation. The estimated pulmonary arterial pressure is 30.6 mmHg. BM BIOPSY 04-28 Assessment and Plan - Assessment (1) AML (acute myeloid leukemia) Code(s): C92.00 - Acute myeloblastic leukemia, not having achieved remission Status: Acute (2) Pancytopenia Code(s): D61.818 - Other pancytopenia Status: Acute (1) AML (acute myeloid leukemia) Qualifiers: Leukemia Active/Remission status: without remission Qualified Code(s): C92.00 - Acute myeloblastic leukemia, not having achieved remission
[2018-05-02] MEDS: Nystatin/Diphenhydramine/Lidocaine Mouthwash (Adult) 120 ML Botttle SWISH-SWAL SCH ×4 (09:34→20:40)
[2018-05-02] MEDS: Nystatin Liq 500,000 UNIT/5 ML UDC SWISH-SWAL SCH ×4 (09:34→20:41)
[2018-05-02] MEDS: Potassium Chlor 20 mEq Premix 20 MEQ/100 ML PIGGYBACK IV.SIG SCH ×2 (09:34→11:24)
[2018-05-02] MEDS: Chlorhexidine Gluconate 0.12% Liq 15 ML UDC SWISH-SPIT SCH ×2 (09:34→20:41)
[2018-05-02] MEDS: Heparin Central Flush 100 UNIT/ML 5 ML Vial IV.FLUSH SCH (11:11)
--- NOTE | 2018-05-02 15:55 | P.PNONC ---
Subjective Interval history: Late entry: Patient originally evaluated at 0830. Patient sleeping on approach , awakens easily. His parents are at the bedside. He reports increased diarrhea, approximately once per hour. He denies any other complaints. --At approximately 1300, RN notified me that the patient has a rash all over his torso. Patient was reevaluated and he has a raised red rash with some petechiae on his anterior and posterior torso. His mother states she first noticed it this a.m. and it was more under his arms and then it has since spread to his abdomen and back. The patient denies any itching or pain with the rash. Objective Vital Signs/Intake & Output: Vital Signs 05/01/18 15:40 05/01/18 15:56 05/01/18 18:13 Temperature 101.5 F H 101.1 F H 99.7 F H Pulse Rate 108 H 87 79 Respiratory Rate 18 18 18 Blood Pressure 148/76 H 141/75 H 128/65 Pulse Oximetry 98 95 98 05/01/18 20:00 05/02/18 00:00 05/02/18 00:20 Temperature 102.3 F H 99.2 F Pulse Rate 71 91 H 87 Respiratory Rate 18 18 Blood Pressure 133/64 150/81 H Pulse Oximetry 97 97 05/02/18 04:00 Temperature 102.3 F H Pulse Rate 95 H Respiratory Rate Blood Pressure 148/80 H Pulse Oximetry 96 Intake & Output 05/01/18 05/02/18 05/02/18 18:59 06:59 18:59 Intake Total 2595 / 2595 1470 / 1470 200 / 200 Output Total 600 / 600 300 / 300 Balance 1994 / 1994 1170 / 1170 200 / 200 Weight 105.4 kg Intake: IV 615 / 615 1230 / 1230 200 / 200 Maxipime Inj 2,000 MG In NS Inj 100 / 100 100 / 100 100 / 100 100 ML @ 200 mls/hr IV.SIG Q8H [facility] Rx#:[id number] Mycamine Inj 150 MG In NS Inj 100 / 100 100 ML @ 100 mls/hr IV.SIG Q24H [facility] Rx#:[id number] KCl 20 mEq Premix Inj 20 meq In 100 / 100 100 ml @ 50 mls/hr IV.SIG Q2H [facility] Rx#:[id number] Vancomycin Inj 1,500 MG In NS 515 / 515 1030 / 1030 Inj 500 ML @ 250 mls/hr IV.SIG Q8H [facility] Rx#:[id number] Oral 1700 / 1700 240 / 240 Intake (Blood Product) Amt 280 / 280 Prepooled Plts Leuko/Irr 5d 280 / 280 Unit [id number] Rbc As-3 Leukoreduced Irrad 0 / 0 Unit [id number] Output: Urine 600 / 600 300 / 300 Other: # Voids 2 Date of Last Bowel Movement 05/01/18 05/01/18 # Bowel Movements 6 1 Result Diagrams: 05/02/18 04:00 05/02/18 04:00 Laboratory Results: Laboratory Results - last 24 hr 04/28/18 04/29/18 05/01/18 11:00 08:28 10:17 WBC RBC Hgb Hct MCV MCH MCHC RDW Plt Count MPV Prelim Diff (Auto) WBC Differential Lymphocytes % (Manual) Differential Comment Platelet Estimate Platelet Morphology Sodium Potassium Chloride Carbon Dioxide Anion Gap BUN Creatinine Estimated GFR Random Glucose Calcium Magnesium Vancomycin Trough Marrow Immunophenotype * MTS Gel Crossmatch See Detail See Detail Bld Prod Order Comment 05/01/18 05/02/18 05/02/18 18:30 04:00 04:00 WBC 0.2 L RBC 2.68 L Hgb 7.8 L Hct 22.4 L MCV 83.6 MCH 29.0 MCHC 34.7 RDW 15.2 Plt Count 23 L D MPV 7.5 Prelim Diff (Auto) Manual diff required WBC Differential Manual diff final Lymphocytes % (Manual) 100 H Differential Comment . Platelet Estimate Rare L Platelet Morphology Normal Sodium 138 Potassium 2.9 L* Chloride 104 Carbon Dioxide 22.5 Anion Gap 12 BUN 5 L Creatinine 0.52 L Estimated GFR Greater than 89 Random Glucose 107 H Calcium 8.0 L Magnesium Vancomycin Trough 11.6 H Marrow Immunophenotype MTS Gel Crossmatch Bld Prod Order Comment 05/02/18 04:00 WBC RBC Hgb Hct MCV MCH MCHC RDW Plt Count MPV Prelim Diff (Auto) WBC Differential Lymphocytes % (Manual) Differential Comment Platelet Estimate Platelet Morphology Sodium Potassium Chloride Carbon Dioxide Anion Gap BUN Creatinine Estimated GFR Random Glucose Calcium Magnesium 1.8 Vancomycin Trough Marrow Immunophenotype MTS Gel Crossmatch Bld Prod Order Comment Culture Results: Microbiology 04/29/18 02:07 Aerobic Blood Culture - Preliminary Blood - Peripheral No growth in 3 days Anaerobic Blood Culture - Preliminary No growth in 3 days 04/29/18 01:20 Aerobic Blood Culture - Preliminary Blood - Line No growth in 3 days Anaerobic Blood Culture - Preliminary No growth in 3 days 04/27/18 13:40 Aerobic Blood Culture - Final Blood - Other No growth in 5 days Anaerobic Blood Culture - Final No growth in 5 days 04/27/18 03:45 Aerobic Blood Culture - Final Blood - Peripheral No growth in 5 days Anaerobic Blood Culture - Final No growth in 5 days 04/27/18 01:00 Aerobic Blood Culture - Final Blood - Line No growth in 5 days Anaerobic Blood Culture - Final No growth in 5 days 04/25/18 19:15 Aerobic Blood Culture - Final Blood - Peripheral No growth in 5 days Anaerobic Blood Culture - Final No growth in 5 days Medications: Active Medications Generic Name Dose Route Start Last Admin Trade Name Freq PRN Reason Stop Dose Admin Acetaminophen 650 mg 04/16/18 00:00 05/02/18 11:25 Tylenol PO 650 mg Q4H PRN Administration TEMPERATURE > 100 F Acetaminophen 650 mg 05/01/18 13:55 05/01/18 14:07 Tylenol PO 650 mg Q4H PRN Administration BLOOD PRODUCT TRANSFUSION Hydrocodone Bitart/Acetaminophen 1 tab 04/23/18 11:51 04/28/18 19:45 Plato 7.5/325 PO 1 tab Q6H PRN Administration PAIN SCALE 6 TO 10 Acyclovir 400 mg 04/24/18 22:00 05/02/18 14:36 Zovirax PO 400 mg Q8HR [facility] Administration Chlorhexidine Gluconate 15 ml 04/23/18 21:00 05/02/18 09:34 Peridex 0.12% Liq SWISH-SPIT 15 ml BID [facility] Administration Diphenhydramine HCl 25 mg 05/01/18 13:54 05/01/18 14:07 Benadryl PO 25 mg Q4H PRN Administration BLOOD PRODUCT TRANSFUSION Heparin Sodium (Porcine) 0 unit 04/16/18 00:00 04/26/18 00:44 Heparin Central Flush IV.FLUSH 200 unit PRN PRN Administration Flush each lumen Heparin Sodium (Porcine) 0 unit 04/16/18 09:00 05/02/18 11:11 Heparin Central Flush IV.FLUSH Not Given DAILY [facility] Cefepime HCl 2,000 mg/ Sodium 100 mls @ 200 mls/hr 04/23/18 13:00 05/02/18 14 :36 Chloride IV.SIG 200 mls/hr Q8H [facility] Administration Vancomycin HCl 1,500 mg/ 515 mls @ 250 mls/hr 04/29/18 18:00 05/02/18 11:24 Sodium Chloride IV.SIG 500 mls/hr Q8H [facility] Administration Micafungin Sodium 150 mg/ 100 mls @ 100 mls/hr 04/30/18 18:00 05/01/18 22:00 Sodium Chloride IV.SIG Infused Q24H [facility] Infusion Lidocaine HCl 15 ml 04/23/18 10:00 04/26/18 09:08 Xylocaine 2% Viscous SWISH-SPIT 15 ml Q4H PRN Administration PAIN SCALE 6 TO 10 Lorazepam 0.5 mg 04/26/18 08:54 05/02/18 05:43 Ativan Inj IV.PUSH 0.5 mg Q6H PRN Administration MILD NAUSEA Miscellaneous Information 1 each 04/16/18 00:00 04/16/18 13:22 Mis Nursing Information OTHER Not Given [id number] [facility] Morphine Sulfate 2 mg 04/16/18 00:00 04/23/18 12:56 Morphine Inj IV.PUSH 2 mg Q2H PRN Administration PAIN SCALE 6 TO 10 Multi-Ingredient Mouthwash/Gargle 5 ml 04/22/18 13:00 05/02/18 13:39 Magic Mouthwash Adult Liq SWISH-SWAL 5 ml QID [facility] Administration Nystatin 500,000 ml 04/26/18 13:00 05/02/18 13:40 Mycostatin Liq SWISH-SWAL 500,000 ml QID [facility] Administration Ondansetron HCl 4 mg 04/16/18 00:00 04/23/18 10:26 Zofran Inj IV.PUSH 4 mg Q6H PRN Administration NAUSEA OR VOMITING Pantoprazole Sodium 40 mg 04/16/18 09:00 05/02/18 09:34 Protonix PO 40 mg DAILY [facility] Administration Potassium Chloride 40 meq 05/01/18 21:00 05/02/18 09:34 K-Dur PO 40 meq BID [facility] Administration Prochlorperazine Edisylate 5 mg 04/26/18 08:51 07/16/18 13:39 Compazine Inj IV.PUSH 5 mg Q6H PRN Administration MILD NAUSEA Sodium Chloride 0 ml 04/16/18 09:00 05/02/18 11:12 Ns Flush IV.FLUSH Not Given DAILY [facility] Sodium Chloride 0 ml 04/16/18 00:00 04/27/18 09:15 Ns Flush IV.FLUSH 5 ml PRN PRN Administration FLUSH AFTER USING IV ACCESS Temazepam 15 mg 04/23/18 21:00 04/30/18 23:14 Restoril PO 15 mg HS PRN Administration INSOMNIA Objective Remarks: GENERAL: Well-nourished, well-developed young male patient, lying in bed, in no acute distress. Sleeping on approach, awakens easily. SKIN: warm and dry. Leal catheter to right chest wall, dressing dry/intact, no redness/drainage. Raised red rash with some petechiae to anterior and posterior torso. HEAD: Normocephalic. EYES: No scleral icterus. No injection or drainage. MOUTH: [place], moist mucous membranes. No thrush. Gums swollen, plaque buildup at gum lines. NECK: Supple, trachea midline. CARDIOVASCULAR: Regular rate and rhythm without murmurs. RESPIRATORY: Posterior breath sounds clear & equal bilaterally. No accessory muscle use. GASTROINTESTINAL: Abdomen soft, non-tender, nondistended. EXTREMITIES: No cyanosis, or edema. MUSCULOSKELETAL: Adequate muscle tone. NEUROLOGICAL: No obvious focal deficit. Awake, alert, and oriented x3. PSYCHIATRIC: Appropriate mood and affect; insight and judgment normal. Assessment/Plan (1) Pancytopenia due to antineoplastic chemotherapy Code(s): D61.810 - Antineoplastic chemotherapy induced pancytopenia; T45.1X5A - Adverse effect of antineoplastic and immunosuppressive drugs, initial encounter Status: Acute (2) AML (acute myeloid leukemia) Code(s): C92.00 - Acute myeloblastic leukemia, not having achieved remission Status: Acute - Plan 04/15 D1 Daunorubicin + Cytarabine 1: D2 Daunorubicin + Cytarabine 7/2: D3 Daunorubicin + Cytarabine 7/3: D4 Cytarabine. Afebrile. Tolerating chemo well. 04/19: D5 Cytarabine continue 7: D6 Cytarabine continues. 6: D7 Cytarabine continues. Afebrile, tolerating well. 04/22: D8 cytarabine. Afebrile, platelet transfusion this a.m. Now with jaw pain. 04/23: D9 Cytarabine completed overnight. Afebrile. Continued jaw pain. Diarrhea 3 x's/day, +n/v x's 1, + insomnia. 04/24: D10 febrile, T-max 102. Blood cultures pending. Currently on cefepime. ID and ENT consult. 04/25: D11 febrile, T-max 102.5F. Blood cultures no growth 2 days. Antibiotics per ID. ENT deferred consult to oral maxillofacial surgery. 04/28: D14 febrile, T-max 100.6F. Blood cultures no growth and 4 days. Current cultures pending. Day 14 bone marrow biopsy scheduled for today. 04/29: D15 febrile, T-max 101.6F. Blood cultures with no growth. Bone marrow biopsy completed yesterday, patient tolerated well. Results pending. 04/30: D16 febrile, T-max 102.1 F. Blood cultures continue with no growth. Bone marrow biopsy pending. 05/01: D17 febrile, T-max 102.1F. Blood cultures continue with no growth. Bone marrow biopsy resulted, pending review with pathology. 05/02: D18 febrile, T-max 102.3F. Blood cultures with no growth. 1. Neutropenic fever. Continues to be febrile and neutropenic. Antibiotic support per infectious disease.Continue neutropenic precautions. 2. Anemia and thrombocytopenia. Transfuse for hgb <7.0 and platelet <15K or symptoms. Hgb, 7.8, platelets 23 K. We will continue to monitor. 3. Swollen gums, erosive gingivitis. Continue viscous lidocaine swish and spit as needed for pain. Continue chlorhexidine antibacterial rinse. Continue antiviral per infectious disease. 4. Hypokalemia. K+ 2.9 today we will transfuse an additional IV 40 mEq of KCl today, patient will also get his oral dose of potassium 40 mEq. 5. Rash to torso, unknown etiology. Could be drug reaction versus heat rash from fevers. Instructed the nurse to hold the vancomycin and contact infectious disease for their input in regards to continuing the antibiotics. 6. Diarrhea. Increasing in frequency today. We will obtain another C. difficile culture. Encourage continued oral hydration. - Attending Statement The exam, history, and the medical decision-making described in the above note were completed with the assistance of the mid-level provider. I reviewed and agree with the findings presented. I attest that I had a [id number] encounter with the patient on the same day, and personally performed and documented my assessment and findings in the medical records. Patient seen and examined. Noted are maculopapular rash distributed over his chest, lower back, lower abdomen and groin, upper thighs, and bilateral axilla. Antibiotic induced rash suspected. Antibiotic therapy was changed by infectious disease. Low-dose Solu-Medrol started. Noted continued diarrhea. Her pantoprazole dose is reduced. Anticipate recovery bone marrow. No red cell or platelet transfusion today. Continued fevers. Gums remain swollen. No other oral lesions. Continue current support. (2) AML (acute myeloid leukemia) Qualifiers: Leukemia Active/Remission status: without remission Qualified Code(s): C92.00 - Acute myeloblastic leukemia, not having achieved remission
--- NOTE | 2018-05-02 16:20 | P.PNID ---
Subjective Remarks: Patient says feels okay. Developed diffuse rash over abdomen, trunk and proximal thighs. Reports that the onset was yesterday evening. Denies itching. Still has temperature spikes. No dysuria, cough or SOB. No headache. Denies night sweats. Denies chills. Cultures negative. 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 The patient has undergone chemotherapy with daunorubicin plus cytarabine. Antibiotics: Acyclovir Cefepime Micafungin Vancomycin Lines: Leal catheter without evidence of infection. Allergies/Adverse Reactions: Allergies No Known Allergies Allergy (Unknown, Uncoded 04/12/18 14:54) Objective Vital Signs 05/01/18 18:13 05/01/18 20:00 05/02/18 00:00 Temperature 99.7 F H 102.3 F H 99.2 F Pulse Rate 79 71 91 H Respiratory Rate 18 18 18 Blood Pressure 128/65 133/64 150/81 H Pulse Oximetry 98 97 97 05/02/18 00:20 05/02/18 04:00 05/02/18 08:00 Temperature 102.3 F H 101.5 F H Pulse Rate 87 95 H 102 H Respiratory Rate 18 Blood Pressure 148/80 H 136/79 Pulse Oximetry 96 97 05/02/18 12:00 Temperature 100.5 F H Pulse Rate 95 H Respiratory Rate 18 Blood Pressure 114/57 L Pulse Oximetry Intake & Output 05/01/18 05/02/18 05/02/18 18:59 06:59 18:59 Intake Total 2595 / 2595 1470 / 1470 400 / 400 Output Total 600 / 600 300 / 300 Balance 1994 / 1994 1170 / 1170 400 / 400 Weight 105.4 kg Intake: IV 615 / 615 1230 / 1230 400 / 400 Maxipime Inj 2,000 MG In NS Inj 100 / 100 100 / 100 200 / 200 100 ML @ 200 mls/hr IV.SIG Q8H [facility] Rx#:[id number] Mycamine Inj 150 MG In NS Inj 100 / 100 100 ML @ 100 mls/hr IV.SIG Q24H [facility] Rx#:[id number] KCl 20 mEq Premix Inj 20 meq In 200 / 200 100 ml @ 50 mls/hr IV.SIG Q2H [facility] Rx#:[id number] Vancomycin Inj 1,500 MG In NS 515 / 515 1030 / 1030 Inj 500 ML @ 250 mls/hr IV.SIG Q8H [facility] Rx#:[id number] Oral 1700 / 1700 240 / 240 Intake (Blood Product) Amt 280 / 280 Prepooled Plts Leuko/Irr 5d 280 / 280 Unit [id number] Rbc As-3 Leukoreduced Irrad 0 / 0 Unit [id number] Output: Urine 600 / 600 300 / 300 Other: # Voids 2 Date of Last Bowel Movement 05/01/18 05/01/18 05/02/18 # Bowel Movements 6 1 04/29/18 02:07 Blood - Peripheral Aerobic Blood Culture - Preliminary No growth in 3 days 04/29/18 02:07 Blood - Peripheral Anaerobic Blood Culture - Preliminary No growth in 3 days 04/29/18 01:20 Blood - Line Aerobic Blood Culture - Preliminary No growth in 3 days 04/29/18 01:20 Blood - Line Anaerobic Blood Culture - Preliminary No growth in 3 days 04/27/18 13:40 Blood - Other Aerobic Blood Culture - Final No growth in 5 days 04/27/18 13:40 Blood - Other Anaerobic Blood Culture - Final No growth in 5 days 04/27/18 03:45 Blood - Peripheral Aerobic Blood Culture - Final No growth in 5 days 04/27/18 03:45 Blood - Peripheral Anaerobic Blood Culture - Final No growth in 5 days 04/27/18 01:00 Blood - Line Aerobic Blood Culture - Final No growth in 5 days 04/27/18 01:00 Blood - Line Anaerobic Blood Culture - Final No growth in 5 days 04/25/18 19:15 Blood - Peripheral Aerobic Blood Culture - Final No growth in 5 days 04/25/18 19:15 Blood - Peripheral Anaerobic Blood Culture - Final No growth in 5 days Lab - Hematology Results 05/01/18 05/02/18 06:00 04:00 WBC 0.2 L 0.2 L RBC 2.44 L 2.68 L Hgb 7.2 L 7.8 L Hct 20.8 L* 22.4 L MCV 85.3 83.6 MCH 29.6 29.0 MCHC 34.7 34.7 RDW 15.2 15.2 Plt Count 15 L* 23 L D MPV 7.5 7.5 Prelim Diff (Auto) Manual diff required Manual diff required WBC Differential Manual diff final Manual diff final Seg Neuts % (Manual) 4 L Lymphocytes % (Manual) 84 H 100 H Monocytes % (Manual) 12 H Abs Neuts (Manual) 0.0 L* Differential Comment . . Platelet Estimate Rare L Rare L Platelet Morphology Normal Normal Lab - Chemistry Results 04/30/18 05/01/18 05/02/18 19:07 06:00 04:00 Sodium 137 138 Potassium 2.8 L* 3.2 L 2.9 L* Chloride 105 104 Carbon Dioxide 21.9 22.5 Anion Gap 10 12 BUN 6 L 5 L Creatinine 0.47 L 0.52 L Estimated GFR Greater than 89 Greater than 89 Random Glucose 98 107 H Calcium 8.0 L 8.0 L Magnesium Total Bilirubin 2.1 H AST 31 ALT 62 Alkaline Phosphatase 201 H Total Protein 6.2 L Albumin 2.0 L 05/02/18 04:00 Sodium Potassium Chloride Carbon Dioxide Anion Gap BUN Creatinine Estimated GFR Random Glucose Calcium Magnesium 1.8 Total Bilirubin AST ALT Alkaline Phosphatase Total Protein Albumin Imaging: ITS Impressions Face CT 04/23/18 00:00 CONCLUSION: 1. No acute fracture. 2. No soft tissue abnormality. Chest X-Ray 04/23/18 21:13 CONCLUSION: Right central line in superior vena cava. No active disease. Abdomen/Pelvis CT 04/26/18 00:00 CONCLUSION: 1. Essentially negative CT of the abdomen and pelvis. There is a proximal transverse colon appears somewhat thickened but this is likely secondary to lack of distention versus less likely colitis. Bone Marrow Biopsy w/ CT 04/28/18 08:00 CONCLUSION: 1. Uncomplicated CT guided bone marrow aspirate. 2. Uncomplicated CT guided bone marrow biopsy. Physical Exam: PHYSICAL EXAMINATION: GENERAL: No acute distress. Awake and alert and oriented. HEENT: Head atraumatic and normocephalic. Extraocular muscles are intact. Pupils reactive to light. No icterus. No conjunctival erythema. Nose: No drainage. Oropharynx: No exudate at the base of the teeth. No visible. NECK: Supple without adenopathy. LUNGS: Breath sounds are clear. HEART: Regular S1 and S2. No murmurs. No rubs. No gallops. ABDOMEN: Bowel sounds present, obese, soft. No tenderness. EXTREMITIES: No clubbing, cyanosis or edema. SKIN: Maculopapular rash covering the abdomen, back, proximal thighs. Rash not present at the neck or face. NEUROLOGIC: Cranial nerves II-XII intact. PSYCHIATRIC: Calm , cooperative. Interactive. Assessment and Plan - Plan IMPRESSION: 1. Neutropenic fever. Cultures negative. WBC remained markedly decreased. Continues to have temperature spikes. Cultures are negative. 2. Acute myeloid leukemia. Post chemo. 3. Gingivitis improved. 4. New rash. Most likely due to cefepime. However patient also on oral antibiotics which could be the culprit. RECOMMENDATIONS: 1. Stop cefepime. 2. Continue vancomycin. 3. Continue acyclovir for possible viral associated gingivitis. 4. Continue micafungin 5. Monitor the skin rash for the next 24 hours before starting any new additional antibiotics. If the temperature stays highly elevated consider adding Levaquin which is non- beta-lactamase or Carbepenem. 6. Monitor temps. 7. Monitor for signs of infection.
[2018-05-02] MEDS: Micafungin Inj 150 MG in Sodium Chlor 0.9% Inj 100 ML IV.SIG SCH (18:07)
[2018-05-03] MEDS: Acyclovir 200 MG Capsule PO SCH ×3 (05:00→22:11)
[2018-05-03 05:06] LABS: Hematocrit 23.7 % (39.0-51.0); Hemoglobin 8.1 gm/dL (13.0-17.0); Mean Corpuscular HGB Conc 34.4 % (32.0-36.0); Mean Corpuscular Hemoglobin 28.9 pg (27.0-34.0); Mean Corpuscular Volume 84.2 fL (80.0-100.0); Red Blood Count 2.81 mil/mm3 (4.50-5.90); Red Cell Distribution Width 15.4 % (11.6-17.2); White Blood Count 0.2 th/mm3 (4.0-11.0)
[2018-05-03 05:25] LABS: Alanine Aminotransferase 69 U/L (12-78); Albumin 2.2 g/dL (3.4-5.0); Alkaline Phosphatase 214 U/L (45-117); Anion Gap 9 meq/L (5-15); Aspartate Aminotransferase 31 U/L (15-37); Blood Urea Nitrogen 6 mg/dL (7-18); Calcium 8.4 mg/dL (8.5-10.1); Carbon Dioxide 22.6 meq/L (21.0-32.0); Chloride 106 meq/L (98-107); Glomerular Filtration Rate Greater Than 89 mL/min (>89); Glucose,Random 117 mg/dL (74-106); Magnesium 1.8 mg/dL (1.5-2.5); Potassium 3.7 meq/L (3.5-5.1); Sodium 138 meq/L (136-145); Total Protein 6.8 g/dL (6.4-8.2)
[2018-05-03 06:04] LABS: Platelet Count 15 th/mm3 (150-450)
[2018-05-03 07:56] LABS: Lymphocytes 83 % (9-44); Monocytes 2 % (0-8)
[2018-05-03 07:57] LABS: Platelet Estimate Rare (Normal); Platelet Morphology Normal (Normal)
--- NOTE | 2018-05-03 08:51 | P.PNONC ---
Subjective Interval history: I do not think I could eat this morning. Objective Vital Signs/Intake & Output: Vital Signs 05/02/18 12:00 05/02/18 16:00 05/02/18 20:00 Temperature 100.5 F H 102 F H 99.6 F Pulse Rate 95 H 95 H 84 Respiratory Rate 18 18 18 Blood Pressure 114/57 L 114/57 L 133/83 Pulse Oximetry 97 98 97 05/02/18 22:58 05/03/18 00:00 05/03/18 04:00 Temperature 101.3 F H 99.3 F Pulse Rate 99 H 84 Respiratory Rate 18 16 Blood Pressure 151/66 H 139/81 Pulse Oximetry 96 98 Intake & Output 05/02/18 05/03/18 05/03/18 18:59 06:59 18:59 Intake Total 1240 / 1240 820 / 820 Output Total 300 / 300 800 / 800 Balance 940 / 940 20 / 20 Weight 101.3 kg Intake: IV 400 / 400 100 / 100 Maxipime Inj 2,000 MG In NS Inj 200 / 200 100 ML @ 200 mls/hr IV.SIG Q8H [facility] Rx#:[id number] Mycamine Inj 150 MG In NS Inj 100 / 100 100 ML @ 100 mls/hr IV.SIG Q24H [facility] Rx#:[id number] KCl 20 mEq Premix Inj 20 meq In 200 / 200 100 ml @ 50 mls/hr IV.SIG Q2H [facility] Rx#:[id number] Oral 240 / 240 720 / 720 Other 600 / 600 Output: Urine 300 / 300 400 / 400 Stool 400 / 400 Other: Other Intake Source Saline Solution # Voids 2 Date of Last Bowel Movement 05/02/18 05/03/18 # Bowel Movements 1 1 # Emeses 1 Result Diagrams: 05/03/18 04:00 05/03/18 04:00 Laboratory Results: Laboratory Results - last 24 hr 05/02/18 05/03/18 05/03/18 04:00 04:00 04:00 WBC 0.2 L RBC 2.81 L Hgb 8.1 L Hct 23.7 L MCV 84.2 MCH 28.9 MCHC 34.4 RDW 15.4 Plt Count 15 L* D MPV 8.0 Prelim Diff (Auto) Manual diff required WBC Differential Manual diff final Seg Neuts % (Manual) 15 L Lymphocytes % (Manual) 83 H Monocytes % (Manual) 2 Abs Neuts (Manual) 0.0 L* Differential Comment . Platelet Estimate Rare L Platelet Morphology Normal Sodium 138 Potassium 3.7 D Chloride 106 Carbon Dioxide 22.6 Anion Gap 9 BUN 6 L Creatinine 0.60 Estimated GFR Greater than 89 Random Glucose 117 H Calcium 8.4 L Magnesium 1.8 1.8 Total Bilirubin 2.0 H AST 31 ALT 69 Alkaline Phosphatase 214 H Total Protein 6.8 D Albumin 2.2 L Culture Results: Microbiology 04/29/18 02:07 Aerobic Blood Culture - Preliminary Blood - Peripheral No growth in 3 days Anaerobic Blood Culture - Preliminary No growth in 3 days 04/29/18 01:20 Aerobic Blood Culture - Preliminary Blood - Line No growth in 3 days Anaerobic Blood Culture - Preliminary No growth in 3 days 04/27/18 13:40 Aerobic Blood Culture - Final Blood - Other No growth in 5 days Anaerobic Blood Culture - Final No growth in 5 days 04/27/18 03:45 Aerobic Blood Culture - Final Blood - Peripheral No growth in 5 days Anaerobic Blood Culture - Final No growth in 5 days 04/27/18 01:00 Aerobic Blood Culture - Final Blood - Line No growth in 5 days Anaerobic Blood Culture - Final No growth in 5 days 04/25/18 19:15 Aerobic Blood Culture - Final Blood - Peripheral No growth in 5 days Anaerobic Blood Culture - Final No growth in 5 days Medications: Active Medications Generic Name Dose Route Start Last Admin Trade Name Freq PRN Reason Stop Dose Admin Acetaminophen 650 mg 04/16/18 00:00 05/02/18 22:59 Tylenol PO 650 mg Q4H PRN Administration TEMPERATURE > 100 F Acetaminophen 650 mg 05/01/18 13:55 05/01/18 14:07 Tylenol PO 650 mg Q4H PRN Administration BLOOD PRODUCT TRANSFUSION Hydrocodone Bitart/Acetaminophen 1 tab 04/23/18 11:51 04/28/18 19:45 [place] 7.5/325 PO 1 tab Q6H PRN Administration PAIN SCALE 6 TO 10 Acyclovir 400 mg 04/24/18 22:00 05/03/18 05:00 Zovirax PO 400 mg Q8HR [facility] Administration Chlorhexidine Gluconate 15 ml 04/23/18 21:00 05/02/18 20:41 Peridex 0.12% Liq SWISH-SPIT 15 ml BID [facility] Administration Diphenhydramine HCl 25 mg 07/16/18 13:54 05/01/18 14:07 Benadryl PO 25 mg Q4H PRN Administration BLOOD PRODUCT TRANSFUSION Heparin Sodium (Porcine) 0 unit 04/16/18 00:00 04/26/18 00:44 Heparin Central Flush IV.FLUSH 200 unit PRN PRN Administration Flush each lumen Heparin Sodium (Porcine) 0 unit 04/16/18 09:00 05/02/18 11:11 Heparin Central Flush IV.FLUSH Not Given DAILY [facility] Vancomycin HCl 1,500 mg/ 515 mls @ 250 mls/hr 04/29/18 18:00 05/02/18 15:43 Sodium Chloride IV.SIG 250 mls/hr Q8H [facility] Infusion Micafungin Sodium 150 mg/ 100 mls @ 100 mls/hr 04/30/18 18:00 05/02/18 20:42 Sodium Chloride IV.SIG Infused Q24H [facility] Infusion Lidocaine HCl 15 ml 04/23/18 10:00 04/26/18 09:08 Xylocaine 2% Viscous SWISH-SPIT 15 ml Q4H PRN Administration PAIN SCALE 6 TO 10 Lorazepam 0.5 mg 04/26/18 08:54 05/03/18 05:00 Ativan Inj IV.PUSH 0.5 mg Q6H PRN Administration MILD NAUSEA Methylprednisolone 4 mg 05/02/18 20:45 05/02/18 23:00 Medrol PO 4 mg DAILY [facility] Administration Miscellaneous Information 1 each 04/16/18 00:00 04/16/18 13:22 [facility] [place] [facility] OTHER Not Given [id number] [facility] Morphine Sulfate 2 mg 04/16/18 00:00 04/23/18 12:56 Morphine Inj IV.PUSH 2 mg Q2H PRN Administration PAIN SCALE 6 TO 10 Multi-Ingredient Mouthwash/Gargle 5 ml 04/22/18 13:00 05/02/18 20:40 Magic Mouthwash Adult Liq SWISH-SWAL 5 ml QID [facility] Administration Nystatin 500,000 ml 04/26/18 13:00 05/02/18 20:41 Mycostatin Liq SWISH-SWAL 5 ml QID [facility]MA Administration Ondansetron HCl 4 mg 04/16/18 00:00 04/23/18 10:26 Zofran Inj IV.PUSH 4 mg Q6H PRN Administration NAUSEA OR VOMITING Potassium Chloride 40 meq 05/01/18 21:00 05/02/18 20:38 K-Dur PO 40 meq BID G[facility]MA Administration Prochlorperazine Edisylate 5 mg 04/26/18 08:51 05/03/18 04:26 Compazine Inj IV.PUSH 5 mg Q6H PRN Administration MILD NAUSEA Sodium Chloride 0 ml 04/16/18 09:00 05/02/18 11:12 Ns Flush IV.FLUSH Not Given DAILY [facility]MA Sodium Chloride 0 ml 04/16/18 00:00 04/27/18 09:15 Ns Flush IV.FLUSH 5 ml PRN PRN Administration FLUSH AFTER USING IV ACCESS Temazepam 15 mg 04/23/18 21:00 04/30/18 23:14 Restoril PO 15 mg HS PRN Administration INSOMNIA Objective Remarks: GENERAL: Well-nourished, obese young man, well-developed patient. SKIN: Warm and dry. Diffuse maculopapular rash throughout abdomen axilla back upper thigh and groin area. Bright red petechial component associated with the rash. HEAD: Normocephalic. Severe gingivitis or mucositis. EYES: No scleral icterus. No injection or drainage. NECK: Supple, trachea midline. No JVD or lymphadenopathy. LYMPHATIC: No adenopathy. CARDIOVASCULAR: Regular rate and rhythm without murmurs. RESPIRATORY: Breath sounds equal bilaterally. No accessory muscle use. GASTROINTESTINAL: Abdomen soft, non-tender, nondistended. EXTREMITIES: No cyanosis, or edema. MUSCULOSKELETAL: Adequate muscle tone. NEUROLOGICAL: No obvious focal deficit. Awake, alert, and oriented x3. Assessment/Plan (1) Pancytopenia due to antineoplastic chemotherapy Code(s): D61.810 - Antineoplastic chemotherapy induced pancytopenia; T45.1X5A - Adverse effect of antineoplastic and immunosuppressive drugs, initial encounter Status: Acute (2) AML (acute myeloid leukemia) Code(s): C92.00 - Acute myeloblastic leukemia, not having achieved remission Status: Acute - Plan 04/15 D1 Daunorubicin + Cytarabine /1: D2 Daunorubicin + Cytarabine 7/2: D3 Daunorubicin + Cytarabine 7/3: D4 Cytarabine. Afebrile. Tolerating chemo well. 7/4: D5 Cytarabine continue 7: D6 Cytarabine continues. 04/21: D7 Cytarabine continues. Afebrile, tolerating well. 04/22: D8 cytarabine. Afebrile, platelet transfusion this a.m. Now with jaw pain. 04/23: D9 Cytarabine completed overnight. Afebrile. Continued jaw pain. Diarrhea 3 x's/day, +n/v x's 1, + insomnia. 04/24: D10 febrile, T-max 102. Blood cultures pending. Currently on cefepime. ID and ENT consult. 04/25: D11 febrile, T-max 102.5F. Blood cultures no growth 2 days. Antibiotics per ID. ENT deferred consult to oral maxillofacial surgery. 04/28: D14 febrile, T-max 100.6F. Blood cultures no growth and 4 days. Current cultures pending. Day 14 bone marrow biopsy scheduled for today. 04/29: D15 febrile, T-max 101.6F. Blood cultures with no growth. Bone marrow biopsy completed yesterday, patient tolerated well. Results pending. 04/30: D16 febrile, T-max 102.1 F. Blood cultures continue with no growth. Bone marrow biopsy pending. 05/01: D17 febrile, T-max 102.1F. Blood cultures continue with no growth. Bone marrow biopsy resulted, pending review with pathology. 05/02: D18 febrile, T-max 102.3F. Blood cultures with no growth. 1. Neutropenic fever. Continues to be febrile and neutropenic. Continue neutropenic precaution. Cefepime was discontinued due to development of rash. He continued to be febrile. Rash is unchanged. Levaquin is initiated as recommended by infectious disease. He continues to be febrile but hemodynamically stable. He was mildly tachycardic overnight. 2. Anemia and thrombocytopenia. Transfuse for hgb <7.0 and platelet <15K or symptoms. No red cell transfusion today. We may consider platelet transfusion given the petechial rash. We will monitor for bleeding. 3. Swollen gums, erosive gingivitis. Continue mouth care. As discussed with his mother dental consultation is being scheduled 3 weeks from now. 4. Hypokalemia. Continue oral potassium supplementation. Supportive transfusion of potassium as well. Anticipate will improve once p.o. intake improves. 5. Rash to torso, unknown etiology. Suspect drug reaction. Small dose of Medrol started. Will monitor for response. 6. Diarrhea. Diarrhea contributing to the hypokalemia. Decrease the dose of proton pump inhibitor to see if that helps. Monitor responsive. (2) AML (acute myeloid leukemia) Qualifiers: Leukemia Active/Remission status: without remission Qualified Code(s): C92.00 - Acute myeloblastic leukemia, not having achieved remission
[2018-05-03] MEDS ORDERED: Pharmacy Ordered Lab Info OTHER ONE (09:45)
[2018-05-03] MEDS: Nystatin/Diphenhydramine/Lidocaine Mouthwash (Adult) 120 ML Botttle SWISH-SWAL SCH ×4 (10:46→22:11)
[2018-05-03] MEDS: Nystatin Liq 500,000 UNIT/5 ML UDC SWISH-SWAL SCH ×4 (10:47→22:10)
[2018-05-03] MEDS: Pantoprazole Sodium 20 MG DR Tablet PO SCH (10:48)
--- NOTE | 2018-05-03 10:57 | P.PN ---
Physical Exam Vital signs: Vital Signs 05/02/18 12:00 05/02/18 16:00 05/02/18 20:00 Temperature 100.5 F H 102 F H 99.6 F Pulse Rate 95 H 95 H 84 Respiratory Rate 18 18 18 Blood Pressure 114/57 L 114/57 L 133/83 Pulse Oximetry 97 98 97 05/02/18 22:58 05/03/18 00:00 05/03/18 04:00 Temperature 101.3 F H 99.3 F Pulse Rate 99 H 84 Respiratory Rate 18 16 Blood Pressure 151/66 H 139/81 Pulse Oximetry 96 98 05/03/18 08:00 Temperature 99.6 F Pulse Rate 108 H Respiratory Rate 18 Blood Pressure 130/82 Pulse Oximetry 97 Intake & Output 05/02/18 05/03/18 05/03/18 18:59 06:59 18:59 Intake Total 1240 / 1240 820 / 820 Output Total 300 / 300 800 / 800 Balance 940 / 940 20 / 20 Weight 101.3 kg Intake: IV 400 / 400 100 / 100 Maxipime Inj 2,000 MG In NS Inj 200 / 200 100 ML @ 200 mls/hr IV.SIG Q8H [facility] Rx#:[id number] Mycamine Inj 150 MG In NS Inj 100 / 100 100 ML @ 100 mls/hr IV.SIG Q24H [facility] Rx#:[id number] KCl 20 mEq Premix Inj 20 meq In 200 / 200 100 ml @ 50 mls/hr IV.SIG Q2H [facility] Rx#:[id number] Oral 240 / 240 720 / 720 Other 600 / 600 Output: Urine 300 / 300 400 / 400 Stool 400 / 400 Other: Other Intake Source Saline Solution # Voids 2 Date of Last Bowel Movement 05/02/18 05/03/18 # Bowel Movements 1 1 # Emeses 1 Narrative: Subjective Interval history: Still with decreased appetite since he was drinking will need Ensure in the morning. No nausea or vomiting. With loose stools. No abdominal pain. No more fevers. Physical Exam GENERAL: Young male, appears in nad. SKIN: Warm and dry. HEENT: Shaved head and alopecia. NECK: Supple no tender LAD or JVD. HEART: RRR no m/r/g. LUNGS: CTAB without wheezes or crackles. ABDOMEN: +BS, soft, NT, ND. EXTREMITIES: No LE edema. NEURO: Awake and alert. PSYCH: Flat affect. Assessment and Plan 27 YOWM admitted 04/12/2018 due to generalized weakness. His hemoglobin was 3.3 and platelets 30k on admission. Hematology was consulted, and patient was ultimately diagnosed with AML and has undergone induction chemotherapy. His course has been complicated by neutropenic fever with persistent spikes in temperature. 1. Acute myeloid leukemia with pancytopenia - Confirmed with BM biopsy 04/13 - Heme/onc consulted and ff, completed nine days of induction chemo ( daunorubicin + cytarabine x 3 days followed by 6 days of cytarabine) - Per oncology: transfuse if Hb<7.0 or PLT<15K - Hb 7.2 this AM, platelets 15K - Transfused 1 unit of platelets and 1 units RBCs - Continue to monitor CBC closely - 04/28 bone marrow biopsy performed, flow cytometry consistent with residual AML 2. Neutropenic fever -Has been afebrile since yesterday morning - White count continues to be extremely low and patient pancytopenic - U/A and CXR unremarkable from 04/23 - Multiple blood cultures have been negative to date - ID following - On Cefepime, vancomycin, and acyclovir - No specific nidus of infection at this time - Continue to closely monitor 3. Diarrhea - Continue to have loose stool - C. diff PCR negative 4. Jaw pain - CT with no evidence of necrosis or other pathology 5. Mucositis - Continue Diflucan and Nystatin S&S 6. History of seizure - Seizure precautions 7. Hypokalemia - Potassium continues to be low but improved from prior days - Mg WNL - Increase to KCl PO 40 BID - Continue to monitor closely 8. Decreased appetite with hypokalemia/ Replace K and monitor. Check mag as well and replace. Add MVT DVT prophylaxis: SCDs, encourage ambulation. Chemical anticoagulation C/I given severe thrombocytopenia Discharge Planning: Still spiking temperatures, neutropenic precautions Discussed with the patient, nurse, family at bedside, hem/onc Results - Labs CBC & Chem 7: 05/03/18 04:00 05/03/18 04:00 Laboratory Results - last 24 hr 05/02/18 05/03/18 05/03/18 04:00 04:00 04:00 WBC 0.2 L RBC 2.81 L Hgb 8.1 L Hct 23.7 L MCV 84.2 MCH 28.9 MCHC 34.4 RDW 15.4 Plt Count 15 L* D MPV 8.0 Prelim Diff (Auto) Manual diff required WBC Differential Manual diff final Seg Neuts % (Manual) 15 L Lymphocytes % (Manual) 83 H Monocytes % (Manual) 2 Abs Neuts (Manual) 0.0 L* Differential Comment . Platelet Estimate Rare L Platelet Morphology Normal Sodium 138 Potassium 3.7 D Chloride 106 Carbon Dioxide 22.6 Anion Gap 9 BUN 6 L Creatinine 0.60 Estimated GFR Greater than 89 Random Glucose 117 H Calcium 8.4 L Magnesium 1.8 1.8 Total Bilirubin 2.0 H AST 31 ALT 69 Alkaline Phosphatase 214 H Total Protein 6.8 D Albumin 2.2 L Microbiology 04/29/18 02:07 Blood - Peripheral Aerobic Blood Culture - Preliminary No growth in 3 days 04/29/18 02:07 Blood - Peripheral Anaerobic Blood Culture - Preliminary No growth in 3 days 04/29/18 01:20 Blood - Line Aerobic Blood Culture - Preliminary No growth in 3 days 04/29/18 01:20 Blood - Line Anaerobic Blood Culture - Preliminary No growth in 3 days 04/27/18 13:40 Blood - Other Aerobic Blood Culture - Final No growth in 5 days 04/27/18 13:40 Blood - Other Anaerobic Blood Culture - Final No growth in 5 days 04/27/18 03:45 Blood - Peripheral Aerobic Blood Culture - Final No growth in 5 days 04/27/18 03:45 Blood - Peripheral Anaerobic Blood Culture - Final No growth in 5 days 04/27/18 01:00 Blood - Line Aerobic Blood Culture - Final No growth in 5 days 04/27/18 01:00 Blood - Line Anaerobic Blood Culture - Final No growth in 5 days - Procedures BM biopsy Leal catheter placement Echo 04/14/2018 The left ventricular systolic function is hyperdynamic with an estimated ejection fraction in the range of 65- 70%. Normal left ventricular size. Wall thickness is normal. No regional wall motion abnormalities are present. Trace mitral valve regurgitation. The left ventricular systolic function is hyperdynamic with an estimated ejection fraction in the range of 65- 70%. Normal left ventricular size. Wall thickness is normal. No regional wall motion abnormalities are present. Trace mitral valve regurgitation. The estimated pulmonary arterial pressure is 30.6 mmHg. BM BIOPSY 04-28 Assessment and Plan - Assessment (1) AML (acute myeloid leukemia) Code(s): C92.00 - Acute myeloblastic leukemia, not having achieved remission Status: Acute (2) Pancytopenia Code(s): D61.818 - Other pancytopenia Status: Acute (1) AML (acute myeloid leukemia) Qualifiers: Leukemia Active/Remission status: without remission Qualified Code(s): C92.00 - Acute myeloblastic leukemia, not having achieved remission
--- NOTE | 2018-05-03 14:25 | P.PNID ---
Subjective Remarks: Patient says he feels fine. No complaints. Frustrated about getting a lot of meds although he feels okay. Has rash over abdomen, trunk and proximal thighs. Also at the back of the knee. 3 round erythematous spots at the buttocks approx 6mm diameter. Temp max lower. Current temp 99. Denies itching. No dysuria, cough or SOB. No headache. Denies night sweats. Denies chills. Cultures negative. 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 The patient has undergone chemotherapy with daunorubicin plus cytarabine. Antibiotics: Acyclovir Micafungin Vancomycin Lines: Leal catheter without evidence of infection. Allergies/Adverse Reactions: Allergies No Known Allergies Allergy (Unknown, Uncoded 04/12/18 14:54) Objective Vital Signs 05/02/18 16:00 05/02/18 20:00 05/02/18 22:58 Temperature 102 F H 99.6 F 101.3 F H Pulse Rate 95 H 84 Respiratory Rate 18 18 Blood Pressure 114/57 L 133/83 Pulse Oximetry 98 97 05/03/18 00:00 05/03/18 04:00 05/03/18 08:00 Temperature 99.3 F 99.6 F Pulse Rate 99 H 84 108 H Respiratory Rate 18 16 18 Blood Pressure 151/66 H 139/81 130/82 Pulse Oximetry 96 98 97 05/03/18 11:25 Temperature Pulse Rate 88 Respiratory Rate 18 Blood Pressure 118/60 Pulse Oximetry 98 Intake & Output 05/02/18 05/03/18 05/03/18 18:59 06:59 18:59 Intake Total 1240 / 1240 820 / 820 Output Total 300 / 300 800 / 800 Balance 940 / 940 20 / 20 Weight 101.3 kg Intake: IV 400 / 400 100 / 100 Maxipime Inj 2,000 MG In NS Inj 200 / 200 100 ML @ 200 mls/hr IV.SIG Q8H [facility] Rx#:[id number] Mycamine Inj 150 MG In NS Inj 100 / 100 100 ML @ 100 mls/hr IV.SIG Q24H [facility] Rx#:[id number] KCl 20 mEq Premix Inj 20 meq In 200 / 200 100 ml @ 50 mls/hr IV.SIG Q2H [facility] Rx#:[id number] Oral 240 / 240 720 / 720 Other 600 / 600 Output: Urine 300 / 300 400 / 400 Stool 400 / 400 Other: Other Intake Source Saline Solution # Voids 2 Date of Last Bowel Movement 05/02/18 05/03/18 # Bowel Movements 1 1 # Emeses 1 04/29/18 02:07 Blood - Peripheral Aerobic Blood Culture - Preliminary No growth in 4 days 04/29/18 02:07 Blood - Peripheral Anaerobic Blood Culture - Preliminary No growth in 4 days 04/29/18 01:20 Blood - Line Aerobic Blood Culture - Preliminary No growth in 4 days 04/29/18 01:20 Blood - Line Anaerobic Blood Culture - Preliminary No growth in 4 days 04/27/18 13:40 Blood - Other Aerobic Blood Culture - Final No growth in 5 days 04/27/18 13:40 Blood - Other Anaerobic Blood Culture - Final No growth in 5 days 04/27/18 03:45 Blood - Peripheral Aerobic Blood Culture - Final No growth in 5 days 04/27/18 03:45 Blood - Peripheral Anaerobic Blood Culture - Final No growth in 5 days 04/27/18 01:00 Blood - Line Aerobic Blood Culture - Final No growth in 5 days 04/27/18 01:00 Blood - Line Anaerobic Blood Culture - Final No growth in 5 days 04/25/18 19:15 Blood - Peripheral Aerobic Blood Culture - Final No growth in 5 days 04/25/18 19:15 Blood - Peripheral Anaerobic Blood Culture - Final No growth in 5 days Lab - Hematology Results 05/02/18 05/03/18 04:00 04:00 WBC 0.2 L 0.2 L RBC 2.68 L 2.81 L Hgb 7.8 L 8.1 L Hct 22.4 L 23.7 L MCV 83.6 84.2 MCH 29.0 28.9 MCHC 34.7 34.4 RDW 15.2 15.4 Plt Count 23 L D 15 L* D MPV 7.5 8.0 Prelim Diff (Auto) Manual diff required Manual diff required WBC Differential Manual diff final Manual diff final Seg Neuts % (Manual) 15 L Lymphocytes % (Manual) 100 H 83 H Monocytes % (Manual) 2 Abs Neuts (Manual) 0.0 L* Differential Comment . . Platelet Estimate Rare L Rare L Platelet Morphology Normal Normal Lab - Chemistry Results 05/02/18 05/02/18 05/03/18 04:00 04:00 04:00 Sodium 138 138 Potassium 2.9 L* 3.7 D Chloride 104 106 Carbon Dioxide 22.5 22.6 Anion Gap 12 9 BUN 5 L 6 L Creatinine 0.52 L 0.60 Estimated GFR Greater than 89 Greater than 89 Random Glucose 107 H 117 H Calcium 8.0 L 8.4 L Magnesium 1.8 1.8 Total Bilirubin 2.0 H AST 31 ALT 69 Alkaline Phosphatase 214 H Total Protein 6.8 D Albumin 2.2 L Imaging: ITS Impressions Face CT 04/23/18 00:00 CONCLUSION: 1. No acute fracture. 2. No soft tissue abnormality. Chest X-Ray 04/23/18 21:13 CONCLUSION: Right central line in superior vena cava. No active disease. Abdomen/Pelvis CT 04/26/18 00:00 CONCLUSION: 1. Essentially negative CT of the abdomen and pelvis. There is a proximal transverse colon appears somewhat thickened but this is likely secondary to lack of distention versus less likely colitis. Bone Marrow Biopsy w/ CT 04/28/18 08:00 CONCLUSION: 1. Uncomplicated CT guided bone marrow aspirate. 2. Uncomplicated CT guided bone marrow biopsy. Physical Exam: PHYSICAL EXAMINATION: GENERAL: No acute distress. Awake and alert and oriented. HEENT: Head atraumatic and normocephalic. Extraocular muscles are intact. Pupils reactive to light. No icterus. No conjunctival erythema. Nose: No drainage. Oropharynx: No exudate at the base of the teeth. No visible. NECK: Supple without adenopathy. LUNGS: Clear. HEART: Regular S1 and S2. No murmurs. No rubs. No gallops. ABDOMEN: Bowel sounds present, obese, soft. No tenderness. EXTREMITIES: No clubbing, cyanosis or edema. SKIN: Maculopapular rash covering the abdomen, back, proximal thighs, back of knee. 3 red spots at the buttock. Rash not present at the neck or face. NEUROLOGIC: Cranial nerves II-XII intact. PSYCHIATRIC: Calm , cooperative. Interactive. Assessment and Plan - Plan IMPRESSION: 1. Neutropenic fever. Cultures negative. WBC remained markedly decreased. Continues to have temperature spikes. Cultures are negative. 2. Acute myeloid leukemia. Post chemo. 3. Gingivitis improved. 4. New rash. Most likely due to cefepime. However patient also on oral antibiotics which could be the culprit. RECOMMENDATIONS: 1. Monitor temperature. 2. Continue vancomycin. 3. Continue acyclovir for possible viral associated gingivitis. 4. Continue micafungin 5. Monitor the skin rash. It may have faded a little. If the temperature stays highly elevated consider adding Levaquin which is non- beta-lactamase or Carbapenem. 6. Monitor for signs of infection. 7. Follow clinical status while waiting for Blood counts to recover. I explained to him the seriousness of his condition and the need for all the medicines in the presence of his nurse.
[2018-05-03] MEDS: Chlorhexidine Gluconate 0.12% Liq 15 ML UDC SWISH-SPIT SCH ×2 (15:00→22:10)
[2018-05-03] MEDS: Heparin Central Flush 100 UNIT/ML 5 ML Vial IV.FLUSH SCH (18:26)
[2018-05-03] MEDS: Micafungin Inj 150 MG in Sodium Chlor 0.9% Inj 100 ML IV.SIG SCH (18:27)
[2018-05-04] MEDS: Acetaminophen 325 MG Tablet PO PRN ×3 (05:48→23:14)
[2018-05-04] MEDS: Acyclovir 200 MG Capsule PO SCH ×3 (05:48→22:52)
[2018-05-04 06:21] LABS: Hematocrit 23.3 % (39.0-51.0); Hemoglobin 8.1 gm/dL (13.0-17.0); Mean Corpuscular HGB Conc 34.6 % (32.0-36.0); Mean Corpuscular Hemoglobin 29.3 pg (27.0-34.0); Mean Corpuscular Volume 84.8 fL (80.0-100.0); Mean Platelet Volume 8.5 fL (7.0-11.0); Red Blood Count 2.75 mil/mm3 (4.50-5.90); Red Cell Distribution Width 15.2 % (11.6-17.2); White Blood Count 0.2 th/mm3 (4.0-11.0)
[2018-05-04 06:30] LABS: Platelet Count 12 th/mm3 (150-450)
[2018-05-04 06:44] LABS: Alanine Aminotransferase 84 U/L (12-78); Albumin 2.2 g/dL (3.4-5.0); Anion Gap 9 meq/L (5-15); Aspartate Aminotransferase 36 U/L (15-37); Blood Urea Nitrogen 7 mg/dL (7-18); Calcium 8.7 mg/dL (8.5-10.1); Carbon Dioxide 23.1 meq/L (21.0-32.0); Chloride 103 meq/L (98-107); Glomerular Filtration Rate Greater Than 89 mL/min (>89); Glucose,Random 100 mg/dL (74-106); Magnesium 1.9 mg/dL (1.5-2.5); Potassium 3.9 meq/L (3.5-5.1); Sodium 135 meq/L (136-145)
[2018-05-04 06:47] LABS: Alkaline Phosphatase 230 U/L (45-117); Total Protein 7.2 g/dL (6.4-8.2)
[2018-05-04 07:21] LABS: Lymphocytes 70 % (9-44)
[2018-05-04 07:30] LABS: Platelet Estimate Rare (Normal); Tear Drop Cells 1+
[2018-05-04 07:31] LABS: Platelet Morphology Normal (Normal)
--- NOTE | 2018-05-04 08:38 | P.PNONC ---
Subjective Interval history: I still have no appetite. Patient noted to be ambulating in the hallways to prevent deep vein thromboses. Objective Vital Signs/Intake & Output: Vital Signs 05/03/18 11:25 05/03/18 12:00 05/03/18 16:00 Temperature 99.6 F 99 F Pulse Rate 88 98 H Respiratory Rate 18 18 18 Blood Pressure 118/60 139/76 Pulse Oximetry 98 98 05/03/18 20:00 05/04/18 00:00 05/04/18 05:30 Temperature 98.8 F 99 F 101.9 F H Pulse Rate 80 75 94 H Respiratory Rate 16 16 16 Blood Pressure 145/83 H 120/64 136/78 Pulse Oximetry 98 98 98 05/04/18 06:30 05/04/18 08:00 Temperature 99.5 F 98.7 F Pulse Rate 78 Respiratory Rate 18 Blood Pressure 121/79 Pulse Oximetry 98 Intake & Output 05/03/18 05/04/18 05/04/18 18:59 06:59 18:59 Intake Total 150 / 150 340 / 340 Output Total 500 / 500 Balance 150 / 150 -160 / -160 Intake: IV 150 / 150 100 / 100 Levaquin 750 mg Premix Inj 150 150 / 150 ML @ 100 mls/hr IV.SIG Q24H [facility] Rx#:[id number] Mycamine Inj 150 MG In NS Inj 100 / 100 100 ML @ 100 mls/hr IV.SIG Q24H [facility] Rx#:[id number] Oral 240 / 240 Output: Urine 500 / 500 Other: Date of Last Bowel Movement 05/03/18 Result Diagrams: 05/04/18 05:45 05/04/18 05:45 Laboratory Results: Laboratory Results - last 24 hr 05/03/18 05/04/18 05/04/18 00:45 05:45 05:45 WBC 0.2 L RBC 2.75 L Hgb 8.1 L Hct 23.3 L MCV 84.8 MCH 29.3 MCHC 34.6 RDW 15.2 Plt Count 12 L* MPV 8.5 Prelim Diff (Auto) Manual diff required WBC Differential Manual diff final Seg Neuts % (Manual) 13 L Band Neuts % (Manual) 17 H Lymphocytes % (Manual) 70 H Abs Neuts (Manual) 0.1 L* Differential Comment . Platelet Estimate Rare L Platelet Morphology Normal Tear Drop Cells 1+ H Sodium 135 L Potassium 3.9 Chloride 103 Carbon Dioxide 23.1 Anion Gap 9 BUN 7 Creatinine 0.58 L Estimated GFR Greater than 89 Random Glucose 100 Calcium 8.7 Magnesium 1.9 Total Bilirubin 1.5 H AST 36 ALT 84 H Alkaline Phosphatase 230 H Total Protein 7.2 Albumin 2.2 L Stl C.difficile Tox PCR Negative St C. diff Tox Epid 027 Negative Bld Prod Order Comment 05/04/18 06:45 WBC RBC Hgb Hct MCV MCH MCHC RDW Plt Count MPV Prelim Diff (Auto) WBC Differential Seg Neuts % (Manual) Band Neuts % (Manual) Lymphocytes % (Manual) Abs Neuts (Manual) Differential Comment Platelet Estimate Platelet Morphology Tear Drop Cells Sodium Potassium Chloride Carbon Dioxide Anion Gap BUN Creatinine Estimated GFR Random Glucose Calcium Magnesium Total Bilirubin AST ALT Alkaline Phosphatase Total Protein Albumin Stl C.difficile Tox PCR St C. diff Tox Epid 027 Bld Prod Order Comment Culture Results: Microbiology 04/29/18 02:07 Aerobic Blood Culture - Preliminary Blood - Peripheral No growth in 4 days Anaerobic Blood Culture - Preliminary No growth in 4 days 04/29/18 01:20 Aerobic Blood Culture - Preliminary Blood - Line No growth in 4 days Anaerobic Blood Culture - Preliminary No growth in 4 days 04/27/18 13:40 Aerobic Blood Culture - Final Blood - Other No growth in 5 days Anaerobic Blood Culture - Final No growth in 5 days 04/27/18 03:45 Aerobic Blood Culture - Final Blood - Peripheral No growth in 5 days Anaerobic Blood Culture - Final No growth in 5 days 04/27/18 01:00 Aerobic Blood Culture - Final Blood - Line No growth in 5 days Anaerobic Blood Culture - Final No growth in 5 days Medications: Active Medications Generic Name Dose Route Start Last Admin Trade Name Freq PRN Reason Stop Dose Admin Acetaminophen 650 mg 04/16/18 00:00 05/04/18 05:48 Tylenol PO 650 mg Q4H PRN Administration TEMPERATURE > 100 F Acetaminophen 650 mg 05/01/18 13:55 05/01/18 14:07 Tylenol PO 650 mg Q4H PRN Administration BLOOD PRODUCT TRANSFUSION Hydrocodone Bitart/Acetaminophen 1 tab 04/23/18 11:51 04/28/18 19:45 [place] 7.5/325 PO 1 tab Q6H PRN Administration PAIN SCALE 6 TO 10 Acyclovir 400 mg 04/24/18 22:00 05/04/18 05:48 Zovirax PO 400 mg Q8HR [facility] Administration Chlorhexidine Gluconate 15 ml 04/23/18 21:00 05/03/18 22:10 Peridex 0.12% Liq SWISH-SPIT 15 ml BID [facility] Administration Diphenhydramine HCl 25 mg 05/01/18 13:54 05/01/18 14:07 Benadryl PO 25 mg Q4H PRN Administration BLOOD PRODUCT TRANSFUSION Heparin Sodium (Porcine) 0 unit 04/16/18 00:00 04/26/18 00:44 Heparin Central Flush IV.FLUSH 200 unit PRN PRN Administration Flush each lumen Heparin Sodium (Porcine) 0 unit 04/16/18 09:00 05/03/18 18:26 Heparin Central Flush IV.FLUSH 500 unit DAILY [facility] Administration Vancomycin HCl 1,500 mg/ 515 mls @ 250 mls/hr 04/29/18 18:00 05/02/18 15:43 Sodium Chloride IV.SIG 250 mls/hr Q8H [facility] Infusion Micafungin Sodium 150 mg/ 100 mls @ 100 mls/hr 04/30/18 18:00 05/03/18 19:30 Sodium Chloride IV.SIG Infused Q24H [facility] Infusion Levofloxacin/Dextrose 150 mls @ 100 mls/hr 05/03/18 09:00 05/03/18 12:27 Levaquin 750 Mg Premix Inj IV.SIG Infused Q24H [facility] Infusion Lidocaine HCl 15 ml 04/23/18 10:00 05/03/18 14:07 Xylocaine 2% Viscous SWISH-SPIT 15 ml Q4H PRN Administration PAIN SCALE 6 TO 10 Lorazepam 0.5 mg 04/26/18 08:54 05/03/18 23:36 Ativan Inj IV.PUSH 0.5 mg Q6H PRN Administration MILD NAUSEA Methylprednisolone 4 mg 05/02/18 20:45 05/03/18 14:00 Medrol PO 4 mg DAILY [facility] Administration Miscellaneous Information 1 each 04/16/18 00:00 04/16/18 13:22 [facility] [place] Not Given [id number] [facility] Morphine Sulfate 2 mg 04/16/18 00:00 04/23/18 12:56 Morphine Inj IV.PUSH 2 mg Q2H PRN Administration PAIN SCALE 6 TO 10 Multi-Ingredient Mouthwash/Gargle 5 ml 04/22/18 13:00 05/03/18 22:11 Magic Mouthwash Adult Liq SWISH-SWAL 5 ml QID [facility] Administration Multivitamins 1 tab 05/03/18 09:00 05/03/18 10:46 Theragran PO 1 tab DAILY [facility] Administration Nystatin 500,000 ml 04/26/18 13:00 05/03/18 22:10 Mycostatin Liq SWISH-SWAL 5 ml QID [facility] Administration Ondansetron HCl 4 mg 04/16/18 00:00 04/23/18 10:26 Zofran Inj IV.PUSH 4 mg Q6H PRN Administration NAUSEA OR VOMITING Pantoprazole Sodium 20 mg 05/03/18 09:00 05/03/18 10:48 Protonix PO 20 mg DAILY [facility] Administration Potassium Chloride 40 meq 05/01/18 21:00 05/03/18 22:10 K-Dur PO 40 meq BID [facility] Administration Prochlorperazine Edisylate 5 mg 04/26/18 08:51 05/03/18 04:26 Compazine Inj IV.PUSH 5 mg Q6H PRN Administration MILD NAUSEA Sodium Chloride 0 ml 04/16/18 09:00 05/03/18 10:49 Ns Flush IV.FLUSH 10 ml DAILY [facility] Administration Sodium Chloride 0 ml 04/16/18 00:00 04/27/18 09:15 Ns Flush IV.FLUSH 5 ml PRN PRN Administration FLUSH AFTER USING IV ACCESS Temazepam 15 mg 04/23/18 21:00 04/30/18 23:14 Restoril PO 15 mg HS PRN Administration INSOMNIA Objective Remarks: GENERAL: Well-nourished, obese young man, well-developed patient. SKIN: Warm and dry. Rash in the abdomen, chest, axilla, back, groin area, legs are resolving. Petechia noted the areas where the rash was. The maculopapular component is still present in bilateral axilla. There is petechia in back of both knees were patient bends. No overt bleeding. HEAD: Normocephalic. Severe gingivitis or mucositis. EYES: No scleral icterus. No injection or drainage. NECK: Supple, trachea midline. No JVD or lymphadenopathy. LYMPHATIC: No adenopathy. CARDIOVASCULAR: Regular rate and rhythm without murmurs. RESPIRATORY: Breath sounds equal bilaterally. No accessory muscle use. GASTROINTESTINAL: Abdomen soft, non-tender, nondistended. EXTREMITIES: No cyanosis, or edema. MUSCULOSKELETAL: Adequate muscle tone. NEUROLOGICAL: No obvious focal deficit. Awake, alert, and oriented x3. Assessment/Plan (1) Pancytopenia due to antineoplastic chemotherapy Code(s): D61.810 - Antineoplastic chemotherapy induced pancytopenia; T45.1X5A - Adverse effect of antineoplastic and immunosuppressive drugs, initial encounter Status: Acute (2) AML (acute myeloid leukemia) Code(s): C92.00 - Acute myeloblastic leukemia, not having achieved remission Status: Acute - Plan 04/15 D1 Daunorubicin + Cytarabine 04/16: D2 Daunorubicin + Cytarabine 04/17: D3 Daunorubicin + Cytarabine 04/18: D4 Cytarabine. Afebrile. Tolerating chemo well. 04/19: D5 Cytarabine continue 04/20: D6 Cytarabine continues. 04/21: D7 Cytarabine continues. Afebrile, tolerating well. 04/22: D8 cytarabine. Afebrile, platelet transfusion this a.m. Now with jaw pain. 04/23: D9 Cytarabine completed overnight. Afebrile. Continued jaw pain. Diarrhea 3 x's/day, +n/v x's 1, + insomnia. 04/24: D10 febrile, T-max 102. Blood cultures pending. Currently on cefepime. ID and ENT consult. 04/25: D11 febrile, T-max 102.5F. Blood cultures no growth 2 days. Antibiotics per ID. ENT deferred consult to oral maxillofacial surgery. 04/28: D14 febrile, T-max 100.6F. Blood cultures no growth and 4 days. Current cultures pending. Day 14 bone marrow biopsy scheduled for today. 04/29: D15 febrile, T-max 101.6F. Blood cultures with no growth. Bone marrow biopsy completed yesterday, patient tolerated well. Results pending. 04/30: D16 febrile, T-max 102.1 F. Blood cultures continue with no growth. Bone marrow biopsy pending. 05/01: D17 febrile, T-max 102.1F. Blood cultures continue with no growth. Bone marrow biopsy resulted, pending review with pathology. 05/02: D18 febrile, T-max 102.3F. Blood cultures with no growth. 1. Neutropenic fever. Continues to be febrile and neutropenic. Continue neutropenic precaution. Cefepime was discontinued due to development of rash. He continued to be febrile in the optometric tech despite the Medrol. I suspect the Medrol has decreased his fever during the day. Antibiotic therapy continue for prophylaxis. Appreciate ID support. 2. Anemia and thrombocytopenia. Transfuse for hgb <7.0 and platelet <15K or symptoms. No red cell transfusion today. Platelets have decreased to 12,000. There are more extensive petechia. There is no bleeding. Transfusion 1 unit of single donor platelet is planned for today. We will monitor closely for bleeding. 3. Swollen gums, erosive gingivitis-no change. Continue mouth care. As discussed with his mother dental consultation is being scheduled 3 weeks from now. 4. Hypokalemia. Resolved. We will continue oral potassium supplementation. P.o. intake remains poor as he has a lack of appetite. 5. Rash to torso, unknown etiology. Suspect drug reaction. Small dose of Medrol started. Will monitor for response. 6. Diarrhea. Diarrhea contributing to the hypokalemia. Decrease the dose of proton pump inhibitor to see if that helps. Monitor responsive. 7. Hyperbilirubinemia trending down. (2) AML (acute myeloid leukemia) Qualifiers: Leukemia Active/Remission status: without remission Qualified Code(s): C92.00 - Acute myeloblastic leukemia, not having achieved remission
[2018-05-04] MEDS: Pantoprazole Sodium 20 MG DR Tablet PO SCH (09:57)
[2018-05-04] MEDS: Heparin Central Flush 100 UNIT/ML 5 ML Vial IV.FLUSH SCH (09:57)
[2018-05-04] MEDS: Nystatin Liq 500,000 UNIT/5 ML UDC SWISH-SWAL SCH ×4 (09:57→22:50)
[2018-05-04] MEDS: Nystatin/Diphenhydramine/Lidocaine Mouthwash (Adult) 120 ML Botttle SWISH-SWAL SCH ×4 (09:58→22:55)
--- NOTE | 2018-05-04 11:45 | P.PNID ---
Subjective Remarks: Patient says feels okay. Temp max lower. Temp spike today. Denies itching. No dysuria, cough or SOB. No headache. Denies night sweats. Denies chills. Cultures negative. 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 The patient has undergone chemotherapy with daunorubicin plus cytarabine. Antibiotics: Acyclovir Micafungin Vancomycin Levquin Lines: Leal catheter without evidence of infection. Allergies/Adverse Reactions: Allergies No Known Allergies Allergy (Unknown, Uncoded 04/12/18 14:54) Objective Vital Signs 05/03/18 12:00 05/03/18 16:00 05/03/18 20:00 Temperature 99.6 F 99 F 98.8 F Pulse Rate 98 H 80 Respiratory Rate 18 18 16 Blood Pressure 139/76 145/83 H Pulse Oximetry 98 98 05/04/18 00:00 05/04/18 05:30 05/04/18 06:30 Temperature 99 F 101.9 F H 99.5 F Pulse Rate 75 94 H Respiratory Rate 16 16 Blood Pressure 120/64 136/78 Pulse Oximetry 98 98 05/04/18 08:00 05/04/18 11:28 Temperature 98.7 F 98.4 F Pulse Rate 78 99 H Respiratory Rate 18 Blood Pressure 121/79 131/85 Pulse Oximetry 98 99 Intake & Output 05/03/18 05/04/18 05/04/18 18:59 06:59 18:59 Intake Total 150 / 150 340 / 340 0 / 0 Output Total 500 / 500 Balance 150 / 150 -160 / -160 0 / 0 Intake: IV 150 / 150 100 / 100 Levaquin 750 mg Premix Inj 150 150 / 150 ML @ 100 mls/hr IV.SIG Q24H [facility] Rx#:[id number] Mycamine Inj 150 MG In NS Inj 100 / 100 100 ML @ 100 mls/hr IV.SIG Q24H [facility] Rx#:[id number] Oral 240 / 240 Intake (Blood Product) Amt 0 / 0 Plt Pheresis A Lr/Irr Unit 0 / 0 [id number] Output: Urine 500 / 500 Other: Date of Last Bowel Movement 05/03/18 04/29/18 02:07 Blood - Peripheral Aerobic Blood Culture - Final No growth in 5 days 04/29/18 02:07 Blood - Peripheral Anaerobic Blood Culture - Final No growth in 5 days 04/29/18 01:20 Blood - Line Aerobic Blood Culture - Final No growth in 5 days 04/29/18 01:20 Blood - Line Anaerobic Blood Culture - Final No growth in 5 days 04/27/18 13:40 Blood - Other Aerobic Blood Culture - Final No growth in 5 days 04/27/18 13:40 Blood - Other Anaerobic Blood Culture - Final No growth in 5 days 04/27/18 03:45 Blood - Peripheral Aerobic Blood Culture - Final No growth in 5 days 04/27/18 03:45 Blood - Peripheral Anaerobic Blood Culture - Final No growth in 5 days 04/27/18 01:00 Blood - Line Aerobic Blood Culture - Final No growth in 5 days 04/27/18 01:00 Blood - Line Anaerobic Blood Culture - Final No growth in 5 days Lab - Hematology Results 05/03/18 05/04/18 04:00 05:45 WBC 0.2 L 0.2 L RBC 2.81 L 2.75 L Hgb 8.1 L 8.1 L Hct 23.7 L 23.3 L MCV 84.2 84.8 MCH 28.9 29.3 MCHC 34.4 34.6 RDW 15.4 15.2 Plt Count 15 L* D 12 L* MPV 8.0 8.5 Prelim Diff (Auto) Manual diff required Manual diff required WBC Differential Manual diff final Manual diff final Seg Neuts % (Manual) 15 L 13 L Band Neuts % (Manual) 17 H Lymphocytes % (Manual) 83 H 70 H Monocytes % (Manual) 2 Abs Neuts (Manual) 0.0 L* 0.1 L* Differential Comment . . Platelet Estimate Rare L Rare L Platelet Morphology Normal Normal Tear Drop Cells 1+ H Lab - Chemistry Results 05/03/18 05/04/18 04:00 05:45 Sodium 138 135 L Potassium 3.7 D 3.9 Chloride 106 103 Carbon Dioxide 22.6 23.1 Anion Gap 9 9 BUN 6 L 7 Creatinine 0.60 0.58 L Estimated GFR Greater than 89 Greater than 89 Random Glucose 117 H 100 Calcium 8.4 L 8.7 Magnesium 1.8 1.9 Total Bilirubin 2.0 H 1.5 H AST 31 36 ALT 69 84 H Alkaline Phosphatase 214 H 230 H Total Protein 6.8 D 7.2 Albumin 2.2 L 2.2 L Imaging: ITS Impressions Face CT 04/23/18 00:00 CONCLUSION: 1. No acute fracture. 2. No soft tissue abnormality. Chest X-Ray 04/23/18 21:13 CONCLUSION: Right central line in superior vena cava. No active disease. Abdomen/Pelvis CT 04/26/18 00:00 CONCLUSION: 1. Essentially negative CT of the abdomen and pelvis. There is a proximal transverse colon appears somewhat thickened but this is likely secondary to lack of distention versus less likely colitis. Bone Marrow Biopsy w/ CT 04/28/18 08:00 CONCLUSION: 1. Uncomplicated CT guided bone marrow aspirate. 2. Uncomplicated CT guided bone marrow biopsy. Physical Exam: PHYSICAL EXAMINATION: GENERAL: No acute distress. Awake and alert and oriented. HEENT: Head atraumatic and normocephalic. Extraocular muscles are intact. Pupils reactive to light. No icterus. No conjunctival erythema. Nose: No drainage. Oropharynx: No exudate at the base of the teeth. No visible lesions. NECK: Supple without adenopathy. LUNGS: Clear. HEART: Regular S1 and S2. No murmurs. No rubs. No gallops. ABDOMEN: Bowel sounds present, obese, soft. No tenderness. EXTREMITIES: No clubbing, cyanosis or edema. SKIN: Maculopapular rash covering the abdomen, back, proximal thighs, back of knee. 3 red spots at the buttock. Erythema is fading. NEUROLOGIC: Cranial nerves II-XII intact. PSYCHIATRIC: Calm , Cooperative. Assessment and Plan - Plan IMPRESSION: 1. Neutropenic fever. Cultures negative. Counts slow to recover. Continues to have temperature spikes. Cultures are negative. 2. Acute myeloid leukemia. Post chemo induction. 3. Gingivitis improved. 4. New rash. Most likely due to cefepime. Improving. RECOMMENDATIONS: 1. Monitor temperature. 2. Continue vancomycin. 3. Continue acyclovir for possible viral associated gingivitis. 4. Continue micafungin 5. Continue Levaquin. 6. Monitor for signs of infection. 7. Follow clinical status while waiting for Blood counts to recover. Discussed with patient and RN.
--- NOTE | 2018-05-04 12:54 | P.PN ---
Physical Exam Vital signs: Vital Signs 05/03/18 16:00 05/03/18 20:00 05/04/18 00:00 Temperature 99 F 98.8 F 99 F Pulse Rate 98 H 80 75 Respiratory Rate 18 16 16 Blood Pressure 139/76 145/83 H 120/64 Pulse Oximetry 98 98 98 05/04/18 05:30 05/04/18 06:30 05/04/18 08:00 Temperature 101.9 F H 99.5 F 98.7 F Pulse Rate 94 H 78 Respiratory Rate 16 18 Blood Pressure 136/78 121/79 Pulse Oximetry 98 98 05/04/18 11:28 Temperature 98.4 F Pulse Rate 99 H Respiratory Rate Blood Pressure 131/85 Pulse Oximetry 99 Intake & Output 05/03/18 05/04/18 05/04/18 18:59 06:59 18:59 Intake Total 150 / 150 340 / 340 0 / 0 Output Total 500 / 500 Balance 150 / 150 -160 / -160 0 / 0 Intake: IV 150 / 150 100 / 100 Levaquin 750 mg Premix Inj 150 150 / 150 ML @ 100 mls/hr IV.SIG Q24H [facility] Rx#:[id number] Mycamine Inj 150 MG In NS Inj 100 / 100 100 ML @ 100 mls/hr IV.SIG Q24H [facility] Rx#:[id number] Oral 240 / 240 Intake (Blood Product) Amt 0 / 0 Plt Pheresis A Lr/Irr Unit 0 / 0 [id number] Output: Urine 500 / 500 Other: Date of Last Bowel Movement 05/03/18 Narrative: Subjective Interval history: Still with decreased appetite. Still with spikes of fevers. No nausea or vomiting. No abdominal pain. Was ambulating. Physical Exam GENERAL: Young male, appears in nad. SKIN: Warm and dry. HEENT: Shaved head and alopecia. NECK: Supple no tender LAD or JVD. HEART: RRR no m/r/g. LUNGS: CTAB without wheezes or crackles. ABDOMEN: +BS, soft, NT, ND. EXTREMITIES: No LE edema. NEURO: Awake and alert. PSYCH: Flat affect. Assessment and Plan 27 YOWM admitted 04/12/2018 due to generalized weakness. His hemoglobin was 3.3 and platelets 30k on admission. Hematology was consulted, and patient was ultimately diagnosed with AML and has undergone induction chemotherapy. His course has been complicated by neutropenic fever with persistent spikes in temperature. 1. Acute myeloid leukemia with pancytopenia - Confirmed with BM biopsy 04/13 - Heme/onc consulted and ff, completed nine days of induction chemo ( daunorubicin + cytarabine x 3 days followed by 6 days of cytarabine) - Per oncology: transfuse if Hb<7.0 or PLT<15K - Hb 7.2 this AM, platelets 15K - Transfused 1 unit of platelets and 1 units RBCs - Continue to monitor CBC closely - 04/28 bone marrow biopsy performed, flow cytometry consistent with residual AML 2. Neutropenic fever -Has been afebrile since yesterday morning - White count continues to be extremely low and patient pancytopenic - U/A and CXR unremarkable from 04/23 - Multiple blood cultures have been negative to date - ID following - On Cefepime, vancomycin, and acyclovir - No specific nidus of infection at this time -Blood cultures are negative to date - Continue to closely monitor 3. Diarrhea - Continue to have loose stool - C. diff PCR negative 4. Jaw pain - CT with no evidence of necrosis or other pathology 5. Mucositis - Continue Diflucan and Nystatin S&S 6. History of seizure - Seizure precautions 7. Hypokalemia - Potassium continues to be low but improved from prior days - Mg WNL - Increase to KCl PO 40 BID - Continue to monitor closely 8. Decreased appetite with hypokalemia/ Replace K and monitor. Check mag as well and replace. Add MVT DVT prophylaxis: SCDs, encourage ambulation. Chemical anticoagulation C/I given severe thrombocytopenia Discharge Planning: neutropenic precautions Discussed with the patient, nurse Results - Labs CBC & Chem 7: 05/04/18 05:45 05/04/18 05:45 Laboratory Results - last 24 hr 05/04/18 05/04/18 05/04/18 05:45 05:45 06:45 WBC 0.2 L RBC 2.75 L Hgb 8.1 L Hct 23.3 L MCV 84.8 MCH 29.3 MCHC 34.6 RDW 15.2 Plt Count 12 L* MPV 8.5 Prelim Diff (Auto) Manual diff required WBC Differential Manual diff final Seg Neuts % (Manual) 13 L Band Neuts % (Manual) 17 H Lymphocytes % (Manual) 70 H Abs Neuts (Manual) 0.1 L* Differential Comment . Platelet Estimate Rare L Platelet Morphology Normal Tear Drop Cells 1+ H Sodium 135 L Potassium 3.9 Chloride 103 Carbon Dioxide 23.1 Anion Gap 9 BUN 7 Creatinine 0.58 L Estimated GFR Greater than 89 Random Glucose 100 Calcium 8.7 Magnesium 1.9 Total Bilirubin 1.5 H AST 36 ALT 84 H Alkaline Phosphatase 230 H Total Protein 7.2 Albumin 2.2 L Bld Prod Order Comment Microbiology 04/29/18 02:07 Blood - Peripheral Aerobic Blood Culture - Final No growth in 5 days 04/29/18 02:07 Blood - Peripheral Anaerobic Blood Culture - Final No growth in 5 days 04/29/18 01:20 Blood - Line Aerobic Blood Culture - Final No growth in 5 days 04/29/18 01:20 Blood - Line Anaerobic Blood Culture - Final No growth in 5 days - Procedures BM biopsy Leal catheter placement Echo 04/14/2018 The left ventricular systolic function is hyperdynamic with an estimated ejection fraction in the range of 65- 70%. Normal left ventricular size. Wall thickness is normal. No regional wall motion abnormalities are present. Trace mitral valve regurgitation. The left ventricular systolic function is hyperdynamic with an estimated ejection fraction in the range of 65- 70%. Normal left ventricular size. Wall thickness is normal. No regional wall motion abnormalities are present. Trace mitral valve regurgitation. The estimated pulmonary arterial pressure is 30.6 mmHg. BM BIOPSY 04-28 Assessment and Plan - Assessment (1) AML (acute myeloid leukemia) Code(s): C92.00 - Acute myeloblastic leukemia, not having achieved remission Status: Acute (2) Pancytopenia Code(s): D61.818 - Other pancytopenia Status: Acute (1) AML (acute myeloid leukemia) Qualifiers: Leukemia Active/Remission status: without remission Qualified Code(s): C92.00 - Acute myeloblastic leukemia, not having achieved remission
[2018-05-04] MEDS: Vancomycin Inj 1,500 MG in Sodium Chlor 0.9% Inj 500 ML IV.SIG SCH ×2 (16:15→23:15)
[2018-05-04] MEDS: Chlorhexidine Gluconate 0.12% Liq 15 ML UDC SWISH-SPIT SCH ×2 (19:22→22:52)
[2018-05-04] MEDS: Micafungin Inj 150 MG in Sodium Chlor 0.9% Inj 100 ML IV.SIG SCH (19:24)
[2018-05-05] MEDS: Vancomycin Inj 1,500 MG in Sodium Chlor 0.9% Inj 500 ML IV.SIG SCH ×2 (05:32→14:33)
[2018-05-05 06:05] LABS: Hematocrit 22.7 % (39.0-51.0); Hemoglobin 7.7 gm/dL (13.0-17.0); Mean Corpuscular HGB Conc 34.1 % (32.0-36.0); Mean Corpuscular Hemoglobin 28.7 pg (27.0-34.0); Mean Corpuscular Volume 84.2 fL (80.0-100.0); Mean Platelet Volume 8.1 fL (7.0-11.0); Red Cell Distribution Width 14.8 % (11.6-17.2); White Blood Count 0.2 th/mm3 (4.0-11.0)
[2018-05-05] MEDS: Acyclovir 200 MG Capsule PO SCH ×3 (06:16→21:05)
[2018-05-05] MEDS: Acetaminophen 325 MG Tablet PO PRN (06:16)
[2018-05-05 06:18] LABS: Platelet Count 18 th/mm3 (150-450)
[2018-05-05 06:27] LABS: Albumin 2.1 g/dL (3.4-5.0); Anion Gap 11 meq/L (5-15); Aspartate Aminotransferase 62 U/L (15-37); Blood Urea Nitrogen 6 mg/dL (7-18); Calcium 8.6 mg/dL (8.5-10.1); Carbon Dioxide 23.8 meq/L (21.0-32.0); Chloride 100 meq/L (98-107); Glomerular Filtration Rate Greater Than 89 mL/min (>89); Glucose,Random 100 mg/dL (74-106); Magnesium 1.8 mg/dL (1.5-2.5); Potassium 3.7 meq/L (3.5-5.1); Sodium 135 meq/L (136-145)
[2018-05-05 06:28] LABS: Alanine Aminotransferase 108 U/L (12-78)
[2018-05-05 06:30] LABS: Alkaline Phosphatase 270 U/L (45-117)
[2018-05-05 07:05] LABS: Lymphocytes 67 % (9-44); Platelet Estimate Rare (Normal); Platelet Morphology Normal (Normal); Toxic Granulation 2+
[2018-05-05] MEDS: Nystatin/Diphenhydramine/Lidocaine Mouthwash (Adult) 120 ML Botttle SWISH-SWAL SCH ×4 (08:04→20:55)
[2018-05-05] MEDS: Nystatin Liq 500,000 UNIT/5 ML UDC SWISH-SWAL SCH ×5 (08:05→20:55)
[2018-05-05] MEDS: Chlorhexidine Gluconate 0.12% Liq 15 ML UDC SWISH-SPIT SCH ×2 (08:05→20:55)
[2018-05-05] MEDS: Pantoprazole Sodium 20 MG DR Tablet PO SCH (08:05)
[2018-05-05] MEDS ORDERED: ASP: Other exception documentation: ( ) OTHER PRN (11:04)
[2018-05-05] MEDS ORDERED: Meropenem Inj 2,000 MG in Sodium Chlor 0.9% Inj 100 ML IV.SIG STA (11:12)
--- NOTE | 2018-05-05 12:25 | P.PNONC ---
Subjective Interval history: Late entry, patient seen and evaluated this a.m. at 0 930. Patient sleeping on approach, awakens to voice. No complaints at this time except being tired. His rash has continued to improve. Objective Vital Signs/Intake & Output: Vital Signs 05/04/18 15:47 05/04/18 22:44 05/05/18 00:00 Temperature 98.8 F 103.2 F H 102.7 F H Pulse Rate 76 92 H 122 H Respiratory Rate 18 17 17 Blood Pressure 131/75 146/81 H 128/77 Pulse Oximetry 98 98 97 05/05/18 04:00 05/05/18 07:29 05/05/18 11:45 Temperature 101.3 F H 100.4 F H 98.6 F Pulse Rate 107 H 106 H 94 H Respiratory Rate 16 18 18 Blood Pressure 128/73 115/70 99/53 L Pulse Oximetry 96 96 97 Intake & Output 05/04/18 05/05/18 05/05/18 18:59 06:59 18:59 Intake Total 600 / 600 1760 / 1760 665 / 665 Output Total 850 / 850 Balance -250 / -250 1760 / 1760 665 / 665 Weight 98 kg Intake: IV 1280 / 1280 665 / 665 Levaquin 750 mg Premix Inj 150 150 / 150 150 / 150 ML @ 100 mls/hr IV.SIG Q24H [facility] Rx#:[id number] Mycamine Inj 150 MG In NS Inj 100 / 100 100 ML @ 100 mls/hr IV.SIG Q24H [facility] Rx#:[id number] Vancomycin Inj 1,500 MG In NS 1030 / 1030 515 / 515 Inj 500 ML @ 250 mls/hr IV.SIG Q8H [facility] Rx#:[id number] Oral 600 / 600 480 / 480 Intake (Blood Product) Amt 0 / 0 Plt Pheresis A Lr/Irr Unit 0 / 0 [id number] Output: Urine 850 / 850 Other: # Voids 2 Date of Last Bowel Movement 05/03/18 05/05/18 # Bowel Movements 1 Result Diagrams: 05/05/18 05:30 05/05/18 05:30 Laboratory Results: Laboratory Results - last 24 hr 05/04/18 05/05/18 05/05/18 13:45 05:30 05:30 WBC 0.2 L RBC 2.70 L Hgb 7.7 L Hct 22.7 L MCV 84.2 MCH 28.7 MCHC 34.1 RDW 14.8 Plt Count 18 L* D MPV 8.1 Prelim Diff (Auto) Manual diff required WBC Differential Manual diff final Seg Neuts % (Manual) 27 Band Neuts % (Manual) 7 H Lymphocytes % (Manual) 67 H Abs Neuts (Manual) 0.1 L* Differential Comment . Toxic Granulation 2+ H Platelet Estimate Rare L Platelet Morphology Normal Sodium 135 L Potassium 3.7 Chloride 100 Carbon Dioxide 23.8 Anion Gap 11 BUN 6 L Creatinine 0.49 L Estimated GFR Greater than 89 Random Glucose 100 Calcium 8.6 Magnesium 1.8 Total Bilirubin 1.5 H AST 62 H ALT 108 H Alkaline Phosphatase 270 H Total Protein 7.0 Albumin 2.1 L Vancomycin Trough Less than 0.8 L Culture Results: Microbiology 05/04/18 23:20 Aerobic Blood Culture - Preliminary Blood - Line No growth in 1 day Anaerobic Blood Culture - Preliminary No growth in 1 day 04/29/18 02:07 Aerobic Blood Culture - Final Blood - Peripheral No growth in 5 days Anaerobic Blood Culture - Final No growth in 5 days 04/29/18 01:20 Aerobic Blood Culture - Final Blood - Line No growth in 5 days Anaerobic Blood Culture - Final No growth in 5 days 04/27/18 13:40 Aerobic Blood Culture - Final Blood - Other No growth in 5 days Anaerobic Blood Culture - Final No growth in 5 days 04/27/18 03:45 Aerobic Blood Culture - Final Blood - Peripheral No growth in 5 days Anaerobic Blood Culture - Final No growth in 5 days 04/27/18 01:00 Aerobic Blood Culture - Final Blood - Line No growth in 5 days Anaerobic Blood Culture - Final No growth in 5 days Medications: Active Medications Generic Name Dose Route Start Last Admin Trade Name Freq PRN Reason Stop Dose Admin Acetaminophen 650 mg 04/16/18 00:00 05/05/18 06:16 Tylenol PO 650 mg Q4H PRN Administration TEMPERATURE > 100 F Acetaminophen 650 mg 05/01/18 13:55 05/01/18 14:07 Tylenol PO 650 mg Q4H PRN Administration BLOOD PRODUCT TRANSFUSION Hydrocodone Bitart/Acetaminophen 1 tab 04/23/18 11:51 04/28/18 19:45 [place] 7.5/325 PO 1 tab Q6H PRN Administration PAIN SCALE 6 TO 10 Acyclovir 400 mg 04/24/18 22:00 05/05/18 06:16 Zovirax PO 400 mg Q8HR [facility] Administration Chlorhexidine Gluconate 15 ml 04/23/18 21:00 05/05/18 08:05 Peridex 0.12% Liq SWISH-SPIT 15 ml BID [facility] Administration Diphenhydramine HCl 25 mg 05/01/18 13:54 05/04/18 09:56 Benadryl PO 25 mg Q4H PRN Administration BLOOD PRODUCT TRANSFUSION Heparin Sodium (Porcine) 0 unit 04/16/18 00:00 04/26/18 00:44 Heparin Central Flush IV.FLUSH 200 unit PRN PRN Administration Flush each lumen Heparin Sodium (Porcine) 0 unit 04/16/18 09:00 05/04/18 09:57 Heparin Central Flush IV.FLUSH 500 unit DAILY [facility] Administration Micafungin Sodium 150 mg/ 100 mls @ 100 mls/hr 04/30/18 18:00 05/04/18 20:30 Sodium Chloride IV.SIG Infused Q24H [facility] Infusion Vancomycin HCl 1,500 mg/ 515 mls @ 250 mls/hr 05/04/18 14:00 05/05/18 11:00 Sodium Chloride IV.SIG Infused Q8H [facility] Infusion Lidocaine HCl 15 ml 04/23/18 10:00 05/03/18 14:07 Xylocaine 2% Viscous SWISH-SPIT 15 ml Q4H PRN Administration PAIN SCALE 6 TO 10 Lorazepam 0.5 mg 04/26/18 08:54 05/05/18 00:46 Ativan Inj IV.PUSH 0.5 mg Q6H PRN Administration MILD NAUSEA Methylprednisolone 4 mg 05/02/18 20:45 05/05/18 08:05 Medrol PO 4 mg DAILY [facility] Administration Miscellaneous Information 1 each 04/16/18 00:00 04/16/18 13:22 Mis Nursing Information OTHER Not Given [id number] [facility] Morphine Sulfate 2 mg 04/16/18 00:00 04/23/18 12:56 Morphine Inj IV.PUSH 2 mg Q2H PRN Administration PAIN SCALE 6 TO 10 Multi-Ingredient Mouthwash/Gargle 5 ml 04/22/18 13:00 05/05/18 08:04 Magic Mouthwash Adult Liq SWISH-SWAL 5 ml QID [facility] Administration Multivitamins 1 tab 05/03/18 09:00 05/05/18 08:05 Theragran PO 1 tab DAILY [facility] Administration Nystatin 500,000 ml 04/26/18 13:00 05/05/18 08:05 Mycostatin Liq SWISH-SWAL 500,000 ml QID [facility] Administration Ondansetron HCl 4 mg 04/16/18 00:00 04/23/18 10:26 Zofran Inj IV.PUSH 4 mg Q6H PRN Administration NAUSEA OR VOMITING Pantoprazole Sodium 20 mg 05/03/18 09:00 05/05/18 08:05 Protonix PO 20 mg DAILY [facility] Administration Potassium Chloride 40 meq 05/05/18 12:00 05/05/18 11:48 Klor-Con 10 PO 40 meq BID [facility] Administration Prochlorperazine Edisylate 5 mg 04/26/18 08:51 05/03/18 04:26 Compazine Inj IV.PUSH 5 mg Q6H PRN Administration MILD NAUSEA Sodium Chloride 0 ml 04/16/18 09:00 05/05/18 11:48 Ns Flush IV.FLUSH 10 ml DAILY [facility] Administration Sodium Chloride 0 ml 04/16/18 00:00 04/27/18 09:15 Ns Flush IV.FLUSH 5 ml PRN PRN Administration FLUSH AFTER USING IV ACCESS Temazepam 15 mg 04/23/18 21:00 04/30/18 23:14 Restoril PO 15 mg HS PRN Administration INSOMNIA Objective Remarks: GENERAL: young male patient, lying in bed, in no acute distress. Sleeping on approach, awakens to voice. SKIN: warm and dry. Leal catheter to right chest wall, dressing dry/intact, no redness/drainage. Fading rash to abdomen. HEAD: Normocephalic. EYES: No scleral icterus. No injection or drainage. NECK: Supple, trachea midline. CARDIOVASCULAR: Regular rate and rhythm without murmurs. RESPIRATORY: Anterior breath sounds clear & equal bilaterally. No accessory muscle use. GASTROINTESTINAL: Abdomen soft, non-tender, nondistended. EXTREMITIES: No cyanosis, or edema. MUSCULOSKELETAL: Adequate muscle tone. NEUROLOGICAL: No obvious focal deficit. Sleeping, awakens to voice. PSYCHIATRIC: Appropriate mood and affect; insight and judgment normal. Assessment/Plan (1) Pancytopenia due to antineoplastic chemotherapy Code(s): D61.810 - Antineoplastic chemotherapy induced pancytopenia; T45.1X5A - Adverse effect of antineoplastic and immunosuppressive drugs, initial encounter Status: Acute (2) AML (acute myeloid leukemia) Code(s): C92.00 - Acute myeloblastic leukemia, not having achieved remission Status: Acute - Plan 04/15 D1 Daunorubicin + Cytarabine 04/16: D2 Daunorubicin + Cytarabine 04/17: D3 Daunorubicin + Cytarabine 04/18: D4 Cytarabine. Afebrile. Tolerating chemo well. 04/19: D5 Cytarabine continue 04/20: D6 Cytarabine continues. 04/21: D7 Cytarabine continues. Afebrile, tolerating well. 04/22: D8 cytarabine. Afebrile, platelet transfusion this a.m. Now with jaw pain. 04/23: D9 Cytarabine completed overnight. Afebrile. Continued jaw pain. Diarrhea 3 x's/day, +n/v x's 1, + insomnia. 04/24: D10 febrile, T-max 102. Blood cultures pending. Currently on cefepime. ID and ENT consult. 04/25: D11 febrile, T-max 102.5F. Blood cultures no growth 2 days. Antibiotics per ID. ENT deferred consult to oral maxillofacial surgery. 04/28: D14 febrile, T-max 100.6F. Blood cultures no growth and 4 days. Current cultures pending. Day 14 bone marrow biopsy scheduled for today. 04/29: D15 febrile, T-max 101.6F. Blood cultures with no growth. Bone marrow biopsy completed yesterday, patient tolerated well. Results pending. 04/30: D16 febrile, T-max 102.1 F. Blood cultures continue with no growth. Bone marrow biopsy pending. 05/01: D17 febrile, T-max 102.1F. Blood cultures continue with no growth. Bone marrow biopsy resulted, pending review with pathology. 05/02: D18 febrile, T-max 102.3F. Blood cultures with no growth. 05/05: D21 febrile, T-max 103.2F. Blood cultures with no growth. 1. Neutropenic fever. Continues to be febrile and neutropenic. Continue neutropenic precaution. Cefepime was discontinued due to development of rash. Rash is dissipating. antibiotic therapy continue for prophylaxis. Appreciate ID support. 2. Anemia and thrombocytopenia. Transfuse for hgb <7.0 and platelet <15K or symptoms. There is no obvious bleeding today. We will continue to monitor H&H. We will monitor closely for bleeding. 3. Swollen gums, erosive gingivitis-no change. Continue mouth care. According to the patient's mother, she has set up a dental appointment for the patient upon discharge. 4. Hypokalemia. Resolved. We will continue oral potassium supplementation. P.o. intake remains poor as he has a lack of appetite. 5. Rash to torso. Suspect drug reaction-ID discontinued cefepime. Small dose of Medrol was started. Rash appears to be dissipating. Will continue to monitor for response. 6. Diarrhea. Diarrhea contributing to the hypokalemia. Decrease the dose of proton pump inhibitor to see if that helps. Monitor responsive. - Attending Statement The exam, history, and the medical decision-making described in the above note were completed with the assistance of the mid-level provider. I reviewed and agree with the findings presented. I attest that I had a [id number] encounter with the patient on the same day, and personally performed and documented my assessment and findings in the medical record. Patient feeling well. He is bored. She has read many books. His rash has resolved. A petechial component is left along his back abdomen back of the knees. He denies any bleeding. He did not need Red cell platelet transfusion today. He remains neutropenic. I anticipate recovery of his blood counts this weekend. I defer to infectious disease to DC antibiotics once ANC is greater than 1500. Case management will be consulted patient assistance. He will need follow-up at regional oncology. Day 28 bone marrow is tentatively due on 05/12. Recovery bone marrow can be performed when counts have returned to normal. (2) AML (acute myeloid leukemia) Qualifiers: Leukemia Active/Remission status: without remission Qualified Code(s): C92.00 - Acute myeloblastic leukemia, not having achieved remission
[2018-05-05] MEDS ORDERED: Pharmacy Ordered Lab Info OTHER ONE (13:45)
[2018-05-05] MEDS: Heparin Central Flush 100 UNIT/ML 5 ML Vial IV.FLUSH SCH (14:39)
--- NOTE | 2018-05-05 15:54 | P.PNID ---
Subjective Remarks: Patient a temperature spike to 103 yesterday evening. Says that he feels fine. Notes that he had some chills with high temperature. Temperature is lower currently. Reports that he has poor appetite. States that he has loose stools but that it is improving. Denies shortness of breath. Denies back pain or dysuria. Denies headache. Denies nausea or vomiting. White blood cell count remains low. Skin rash is almost completely resolved. 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 The patient has undergone chemotherapy with daunorubicin plus cytarabine. Antibiotics: Acyclovir Micafungin Vancomycin Lines: Leal catheter without evidence of infection. Allergies/Adverse Reactions: Allergies No Known Allergies Allergy (Unknown, Uncoded 04/12/18 14:54) Objective Vital Signs 05/04/18 22:44 05/05/18 00:00 05/05/18 04:00 Temperature 103.2 F H 102.7 F H 101.3 F H Pulse Rate 92 H 122 H 107 H Respiratory Rate 17 17 16 Blood Pressure 146/81 H 128/77 128/73 Pulse Oximetry 98 97 96 05/05/18 07:29 05/05/18 11:45 05/05/18 15:44 Temperature 100.4 F H 98.6 F 99.4 F Pulse Rate 106 H 94 H 98 H Respiratory Rate 18 18 18 Blood Pressure 115/70 99/53 L 123/74 Pulse Oximetry 96 97 99 Intake & Output 05/04/18 05/05/18 05/05/18 18:59 06:59 18:59 Intake Total 600 / 600 1760 / 1760 765 / 765 Output Total 850 / 850 Balance -250 / -250 1760 / 1760 765 / 765 Weight 98 kg Intake: IV 1280 / 1280 765 / 765 Levaquin 750 mg Premix Inj 150 150 / 150 150 / 150 ML @ 100 mls/hr IV.SIG Q24H [facility] Rx#:[id number] Merrem Inj 2,000 MG In NS Inj 100 / 100 100 ML @ 200 mls/hr IV.SIG ONCE STA Rx#:[id number] Mycamine Inj 150 MG In NS Inj 100 / 100 100 ML @ 100 mls/hr IV.SIG Q24H [facility] Rx#:[id number] Vancomycin Inj 1,500 MG In NS 1030 / 1030 515 / 515 Inj 500 ML @ 250 mls/hr IV.SIG Q8H [facility] Rx#:[id number] Oral 600 / 600 480 / 480 Intake (Blood Product) Amt 0 / 0 Plt Pheresis A Lr/Irr Unit 0 / 0 [id number] Output: Urine 850 / 850 Other: # Voids 2 Date of Last Bowel Movement 05/03/18 05/05/18 # Bowel Movements 1 05/04/18 23:20 Blood - Line Aerobic Blood Culture - Preliminary No growth in 1 day 05/04/18 23:20 Blood - Line Anaerobic Blood Culture - Preliminary No growth in 1 day 05/04/18 23:53 Blood - Peripheral Aerobic Blood Culture - Pending 05/04/18 23:53 Blood - Peripheral Anaerobic Blood Culture - Pending 04/29/18 02:07 Blood - Peripheral Aerobic Blood Culture - Final No growth in 5 days 04/29/18 02:07 Blood - Peripheral Anaerobic Blood Culture - Final No growth in 5 days 04/29/18 01:20 Blood - Line Aerobic Blood Culture - Final No growth in 5 days 04/29/18 01:20 Blood - Line Anaerobic Blood Culture - Final No growth in 5 days Lab - Hematology Results 05/04/18 05/05/18 05:45 05:30 WBC 0.2 L 0.2 L RBC 2.75 L 2.70 L Hgb 8.1 L 7.7 L Hct 23.3 L 22.7 L MCV 84.8 84.2 MCH 29.3 28.7 MCHC 34.6 34.1 RDW 15.2 14.8 Plt Count 12 L* 18 L* D MPV 8.5 8.1 Prelim Diff (Auto) Manual diff required Manual diff required WBC Differential Manual diff final Manual diff final Seg Neuts % (Manual) 13 L 27 Band Neuts % (Manual) 17 H 7 H Lymphocytes % (Manual) 70 H 67 H Abs Neuts (Manual) 0.1 L* 0.1 L* Differential Comment . . Toxic Granulation 2+ H Platelet Estimate Rare L Rare L Platelet Morphology Normal Normal Tear Drop Cells 1+ H Lab - Chemistry Results 05/04/18 05/05/18 05:45 05:30 Sodium 135 L 135 L Potassium 3.9 3.7 Chloride 103 100 Carbon Dioxide 23.1 23.8 Anion Gap 9 11 BUN 7 6 L Creatinine 0.58 L 0.49 L Estimated GFR Greater than 89 Greater than 89 Random Glucose 100 100 Calcium 8.7 8.6 Magnesium 1.9 1.8 Total Bilirubin 1.5 H 1.5 H AST 36 62 H ALT 84 H 108 H Alkaline Phosphatase 230 H 270 H Total Protein 7.2 7.0 Albumin 2.2 L 2.1 L Imaging: ITS Impressions Face CT 04/23/18 00:00 CONCLUSION: 1. No acute fracture. 2. No soft tissue abnormality. Chest X-Ray 04/23/18 21:13 CONCLUSION: Right central line in superior vena cava. No active disease. Abdomen/Pelvis CT 04/26/18 00:00 CONCLUSION: 1. Essentially negative CT of the abdomen and pelvis. There is a proximal transverse colon appears somewhat thickened but this is likely secondary to lack of distention versus less likely colitis. Bone Marrow Biopsy w/ CT 04/28/18 08:00 CONCLUSION: 1. Uncomplicated CT guided bone marrow aspirate. 2. Uncomplicated CT guided bone marrow biopsy. Physical Exam: PHYSICAL EXAMINATION: GENERAL: No acute distress. Awake and alert and oriented. HEENT: Head atraumatic and normocephalic. Extraocular muscles are intact. Pupils reactive to light. No icterus. No conjunctival erythema. Nose: No drainage. Oropharynx: No exudate at the base of the teeth. No visible lesions. No thrush. NECK: Supple without adenopathy. LUNGS: Clear. HEART: Regular S1 and S2. No murmurs. No rubs. No gallops. ABDOMEN: Bowel sounds present, obese, soft. No tenderness. EXTREMITIES: No clubbing, cyanosis or edema. SKIN: Rash mostly resolved only a few petechial lesions at the inner elbow on the left. NEUROLOGIC: Cranial nerves II-XII intact. PSYCHIATRIC: Calm , Cooperative. Assessment and Plan - Plan IMPRESSION: 1. Neutropenic fever. Cultures negative. Counts slow to recover. Continues to have temperature spikes. Cultures are negative. 2. Acute myeloid leukemia. Post chemo induction. 3. Gingivitis improved. 4. Rash has resolved after stopping Cefepime. Patient does not have any significant symptoms. However he continues to have fever and now high spiking. RECOMMENDATIONS: 1. Continue meropenem which I added earlier today. 2. Continue vancomycin. 3. Continue acyclovir for possible viral associated gingivitis. 4. Continue micafungin 5. Stop Levaquin. 6. Monitor for signs of infection. 7. Follow clinical status while waiting for Blood counts to recover.
--- NOTE | 2018-05-05 15:57 | P.PN ---
Physical Exam Vital signs: Vital Signs 05/04/18 22:44 05/05/18 00:00 05/05/18 04:00 Temperature 103.2 F H 102.7 F H 101.3 F H Pulse Rate 92 H 122 H 107 H Respiratory Rate 17 17 16 Blood Pressure 146/81 H 128/77 128/73 Pulse Oximetry 98 97 96 05/05/18 07:29 05/05/18 11:45 05/05/18 15:44 Temperature 100.4 F H 98.6 F 99.4 F Pulse Rate 106 H 94 H 98 H Respiratory Rate 18 18 18 Blood Pressure 115/70 99/53 L 123/74 Pulse Oximetry 96 97 99 Intake & Output 05/04/18 05/05/18 05/05/18 18:59 06:59 18:59 Intake Total 600 / 600 1760 / 1760 765 / 765 Output Total 850 / 850 Balance -250 / -250 1760 / 1760 765 / 765 Weight 98 kg Intake: IV 1280 / 1280 765 / 765 Levaquin 750 mg Premix Inj 150 150 / 150 150 / 150 ML @ 100 mls/hr IV.SIG Q24H [facility] Rx#:[id number] Merrem Inj 2,000 MG In NS Inj 100 / 100 100 ML @ 200 mls/hr IV.SIG ONCE STA Rx#:[id number] Mycamine Inj 150 MG In NS Inj 100 / 100 100 ML @ 100 mls/hr IV.SIG Q24H [facility] Rx#:[id number] Vancomycin Inj 1,500 MG In NS 1030 / 1030 515 / 515 Inj 500 ML @ 250 mls/hr IV.SIG Q8H [facility] Rx#:[id number] Oral 600 / 600 480 / 480 Intake (Blood Product) Amt 0 / 0 Plt Pheresis A Lr/Irr Unit 0 / 0 [id number] Output: Urine 850 / 850 Other: # Voids 2 Date of Last Bowel Movement 05/03/18 05/05/18 # Bowel Movements 1 Narrative: Subjective Interval history: Not eating much since also he cannot tolerate Ensure. Still with spikes of fevers. No nausea or vomiting. No abdominal pain. Not coughing, no urinary complaints. Had diarrhea watery 2 times. Rash resolved. Physical Exam GENERAL: Young male, appears in nad. HEENT: Shaved head and alopecia. NECK: Supple no tender LAD or JVD. HEART: RRR no m/r/g. LUNGS: CTAB , wheezes or crackles. ABDOMEN: +BS, soft, NT, ND. EXTREMITIES: No LE edema. NEURO: Awake and alert. PSYCH: Flat affect. Assessment and Plan 27 YOWM admitted 04/12/2018 due to generalized weakness. His hemoglobin was 3.3 and platelets 30k on admission. Hematology was consulted, and patient was ultimately diagnosed with AML and has undergone induction chemotherapy. His course has been complicated by neutropenic fever with persistent spikes in temperature. 1. Acute myeloid leukemia with pancytopenia - Confirmed with BM biopsy 04/13 - Heme/onc consulted and ff, completed nine days of induction chemo ( daunorubicin + cytarabine x 3 days followed by 6 days of cytarabine) - Per oncology: transfuse if Hb<7.0 or PLT<15K - Hb 7.2 this AM, platelets 15K - Transfused 1 unit of platelets and 1 units RBCs - Continue to monitor CBC closely - 04/28 bone marrow biopsy performed, flow cytometry consistent with residual AML 2. Neutropenic fever -Has been afebrile since yesterday morning - White count continues to be extremely low and patient pancytopenic - U/A and CXR unremarkable from 04/23 - Multiple blood cultures have been negative to date - ID following - On Cefepime, vancomycin, and acyclovir - No specific nidus of infection at this time -Blood cultures are negative to date - Continue to closely monitor 3. Diarrhea - Continue to have loose stool - C. diff PCR negative 4. Jaw pain - CT with no evidence of necrosis or other pathology 5. Mucositis - Continue Diflucan and Nystatin S&S 6. History of seizure - Seizure precautions 7. Hypokalemia - Potassium continues to be low but improved from prior days - Mg WNL - Increase to KCl PO 40 BID - Continue to monitor closely 8. Decreased appetite with hypokalemia/ Replace K and monitor. Check mag as well and replace. Add MVT DVT prophylaxis: SCDs, encourage ambulation. Chemical anticoagulation C/I given severe thrombocytopenia Discharge Planning: neutropenic precautions Discussed with the patient, nurse, family at bedside Results - Labs CBC & Chem 7: 05/05/18 05:30 05/05/18 05:30 Laboratory Results - last 24 hr 05/05/18 05/05/18 05/05/18 05:30 05:30 14:40 WBC 0.2 L RBC 2.70 L Hgb 7.7 L Hct 22.7 L MCV 84.2 MCH 28.7 MCHC 34.1 RDW 14.8 Plt Count 18 L* D MPV 8.1 Prelim Diff (Auto) Manual diff required WBC Differential Manual diff final Seg Neuts % (Manual) 27 Band Neuts % (Manual) 7 H Lymphocytes % (Manual) 67 H Abs Neuts (Manual) 0.1 L* Differential Comment . Toxic Granulation 2+ H Platelet Estimate Rare L Platelet Morphology Normal Sodium 135 L Potassium 3.7 Chloride 100 Carbon Dioxide 23.8 Anion Gap 11 BUN 6 L Creatinine 0.49 L Estimated GFR Greater than 89 Random Glucose 100 Calcium 8.6 Magnesium 1.8 Total Bilirubin 1.5 H AST 62 H ALT 108 H Alkaline Phosphatase 270 H Total Protein 7.0 Albumin 2.1 L Vancomycin Trough 13.6 H Microbiology 05/04/18 23:20 Blood - Line Aerobic Blood Culture - Preliminary No growth in 1 day 05/04/18 23:20 Blood - Line Anaerobic Blood Culture - Preliminary No growth in 1 day - Procedures BM biopsy Leal catheter placement Echo 04/14/2018 The left ventricular systolic function is hyperdynamic with an estimated ejection fraction in the range of 65- 70%. Normal left ventricular size. Wall thickness is normal. No regional wall motion abnormalities are present. Trace mitral valve regurgitation. The left ventricular systolic function is hyperdynamic with an estimated ejection fraction in the range of 65- 70%. Normal left ventricular size. Wall thickness is normal. No regional wall motion abnormalities are present. Trace mitral valve regurgitation. The estimated pulmonary arterial pressure is 30.6 mmHg. BM BIOPSY 04-28 Assessment and Plan - Assessment (1) AML (acute myeloid leukemia) Code(s): C92.00 - Acute myeloblastic leukemia, not having achieved remission Status: Acute (2) Pancytopenia Code(s): D61.818 - Other pancytopenia Status: Acute (1) AML (acute myeloid leukemia) Qualifiers: Leukemia Active/Remission status: without remission Qualified Code(s): C92.00 - Acute myeloblastic leukemia, not having achieved remission
[2018-05-05] MEDS: Micafungin Inj 150 MG in Sodium Chlor 0.9% Inj 100 ML IV.SIG SCH (17:04)
[2018-05-05] MEDS: Vancomycin Inj 1,750 MG in Sodium Chlor 0.9% Inj 500 ML IV.SIG SCH (22:01)
[2018-05-06] MEDS: Acetaminophen 500 MG Tablet PO SCH ×2 (00:37→06:28)
[2018-05-06] MEDS: Acyclovir 200 MG Capsule PO SCH ×3 (05:49→21:43)
[2018-05-06 06:46] LABS: Hematocrit 22.9 % (39.0-51.0); Hemoglobin 7.7 gm/dL (13.0-17.0); Mean Corpuscular HGB Conc 33.7 % (32.0-36.0); Mean Corpuscular Hemoglobin 28.4 pg (27.0-34.0); Mean Corpuscular Volume 84.2 fL (80.0-100.0); Mean Platelet Volume 7.8 fL (7.0-11.0); Platelet Count 24 th/mm3 (150-450); Red Blood Count 2.72 mil/mm3 (4.50-5.90); Red Cell Distribution Width 14.8 % (11.6-17.2); White Blood Count 0.4 th/mm3 (4.0-11.0)
[2018-05-06] MEDS: Vancomycin Inj 1,750 MG in Sodium Chlor 0.9% Inj 500 ML IV.SIG SCH ×3 (06:46→21:42)
[2018-05-06 07:05] LABS: Anion Gap 10 meq/L (5-15); Blood Urea Nitrogen 5 mg/dL (7-18); Calcium 8.7 mg/dL (8.5-10.1); Carbon Dioxide 25.7 meq/L (21.0-32.0); Chloride 100 meq/L (98-107); Glomerular Filtration Rate Greater Than 89 mL/min (>89); Glucose,Random 89 mg/dL (74-106); Sodium 136 meq/L (136-145)
[2018-05-06] MEDS ORDERED: Acetaminophen 500 MG Tablet PO PRN (08:35)
[2018-05-06] MEDS: Chlorhexidine Gluconate 0.12% Liq 15 ML UDC SWISH-SPIT SCH ×2 (08:52→20:02)
[2018-05-06] MEDS: Pantoprazole Sodium 20 MG DR Tablet PO SCH (08:52)
[2018-05-06] MEDS: Heparin Central Flush 100 UNIT/ML 5 ML Vial IV.FLUSH SCH (08:52)
[2018-05-06] MEDS: Nystatin Liq 500,000 UNIT/5 ML UDC SWISH-SWAL SCH ×4 (08:53→20:15)
[2018-05-06] MEDS: Nystatin/Diphenhydramine/Lidocaine Mouthwash (Adult) 120 ML Botttle SWISH-SWAL SCH ×4 (08:53→20:15)
[2018-05-06 09:02] LABS: Lymphocytes 46 % (9-44); Monocytes 2 % (0-8)
[2018-05-06 09:03] LABS: Dohle Bodies Present; Platelet Morphology Normal (Normal); Toxic Granulation 2+
--- NOTE | 2018-05-06 09:49 | P.PNONC ---
Subjective Interval history: Patient sitting up in bed. He has no complaints at this time. He states he is tired of being in the hospital and inquires about his recent lab work. He does report tenderness with palpation at the Leal site. Objective Vital Signs/Intake & Output: Vital Signs 05/05/18 11:45 05/05/18 15:44 05/05/18 20:40 Temperature 98.6 F 99.4 F 99.7 F H Pulse Rate 94 H 98 H 96 H Respiratory Rate 18 18 16 Blood Pressure 99/53 L 123/74 109/60 Pulse Oximetry 97 99 98 05/06/18 00:31 05/06/18 05:58 05/06/18 08:46 Temperature 99.8 F H 100.1 F H 99.3 F Pulse Rate 95 H 102 H 99 H Respiratory Rate 17 16 18 Blood Pressure 116/57 L 117/72 121/76 Pulse Oximetry 97 98 99 Intake & Output 05/05/18 05/06/18 05/06/18 18:59 06:59 18:59 Intake Total 2014 1197.5 / 1197.5 517.5 / 517.5 Output Total 1350 / 1350 Balance 665 / 665 1197.5 / 1197.5 517.5 / 517.5 Weight 98 kg Intake: IV 865 / 865 717.5 / 717.5 517.5 / 517.5 Levaquin 750 mg Premix Inj 150 150 / 150 ML @ 100 mls/hr IV.SIG Q24H [facility] Rx#:[id number] Merrem Inj 2,000 MG In NS Inj 100 / 100 100 ML @ 200 mls/hr IV.SIG ONCE STA Rx#:[id number] Merrem Inj 2,000 MG In NS Inj 200 / 200 100 ML @ 200 mls/hr IV.SIG Q8H [facility] Rx#:[id number] Mycamine Inj 150 MG In NS Inj 100 / 100 100 ML @ 100 mls/hr IV.SIG Q24H [facility] Rx#:[id number] Vancomycin Inj 1,750 MG In NS 515 / 515 517.5 / 517.5 517.5 / 517.5 Inj 500 ML @ 250 mls/hr IV.SIG Q8H [facility] Rx#:[id number] Oral 1150 / 1150 480 / 480 Output: Urine 1350 / 1350 Other: # Voids 2 Date of Last Bowel Movement 05/05/18 05/06/18 05/06/18 # Bowel Movements 2 1 Result Diagrams: 05/06/18 05:45 05/06/18 05:45 Laboratory Results: Laboratory Results - last 24 hr 05/05/18 05/06/18 05/06/18 14:40 05:45 05:45 WBC 0.4 L RBC 2.72 L Hgb 7.7 L Hct 22.9 L MCV 84.2 MCH 28.4 MCHC 33.7 RDW 14.8 Plt Count 24 L D MPV 7.8 Prelim Diff (Auto) Manual diff required WBC Differential Manual diff final Seg Neuts % (Manual) 28 Band Neuts % (Manual) 24 H Lymphocytes % (Manual) 46 H Monocytes % (Manual) 2 Abs Neuts (Manual) 0.2 L* Differential Comment . Toxic Granulation 2+ H Dohle Bodies Present H Platelet Estimate Low L Platelet Morphology Normal Sodium 136 Potassium 4.0 Chloride 100 Carbon Dioxide 25.7 Anion Gap 10 BUN 5 L Creatinine 0.53 L Estimated GFR Greater than 89 Random Glucose 89 Calcium 8.7 Vancomycin Trough 13.6 H Culture Results: Microbiology 05/04/18 23:20 Aerobic Blood Culture - Preliminary Blood - Line No growth in 1 day Anaerobic Blood Culture - Preliminary No growth in 1 day 04/29/18 02:07 Aerobic Blood Culture - Final Blood - Peripheral No growth in 5 days Anaerobic Blood Culture - Final No growth in 5 days 04/29/18 01:20 Aerobic Blood Culture - Final Blood - Line No growth in 5 days Anaerobic Blood Culture - Final No growth in 5 days Medications: Active Medications Generic Name Dose Route Start Last Admin Trade Name Freq PRN Reason Stop Dose Admin Acetaminophen 650 mg 05/01/18 13:55 05/01/18 14:07 Tylenol PO 650 mg Q4H PRN Administration BLOOD PRODUCT TRANSFUSION Hydrocodone Bitart/Acetaminophen 1 tab 04/23/18 11:51 04/28/18 19:45 Section 7.5/325 PO 1 tab Q6H PRN Administration PAIN SCALE 6 TO 10 Acyclovir 400 mg 04/24/18 22:00 05/06/18 05:49 Zovirax PO 400 mg Q8HR [facility] Administration Chlorhexidine Gluconate 15 ml 04/23/18 21:00 05/06/18 08:52 Peridex 0.12% Liq SWISH-SPIT 15 ml BID [facility] Administration Diphenhydramine HCl 25 mg 05/01/18 13:54 05/04/18 09:56 Benadryl PO 25 mg Q4H PRN Administration BLOOD PRODUCT TRANSFUSION Heparin Sodium (Porcine) 0 unit 04/16/18 00:00 04/26/18 00:44 Heparin Central Flush IV.FLUSH 200 unit PRN PRN Administration Flush each lumen Heparin Sodium (Porcine) 0 unit 04/16/18 09:00 05/06/18 08:52 Heparin Central Flush IV.FLUSH 500 unit DAILY [facility] Administration Micafungin Sodium 150 mg/ 100 mls @ 100 mls/hr 04/30/18 18:00 05/05/18 18:10 Sodium Chloride IV.SIG Infused Q24H [facility] Infusion Meropenem 2,000 mg/ Sodium 100 mls @ 200 mls/hr 05/05/18 20:00 05/06/18 06:46 Chloride IV.SIG Infused Q8H [facility] Infusion Vancomycin HCl 1,750 mg/ 517.5 mls @ 250 mls/hr 05/05/18 22:00 05/06/18 09:00 Sodium Chloride IV.SIG Infused Q8H [facility] Infusion Lidocaine HCl 15 ml 04/23/18 10:00 05/03/18 14:07 Xylocaine 2% Viscous SWISH-SPIT 15 ml Q4H PRN Administration PAIN SCALE 6 TO 10 Lorazepam 0.5 mg 04/26/18 08:54 05/06/18 02:22 Ativan Inj IV.PUSH 0.5 mg Q6H PRN Administration MILD NAUSEA Miscellaneous Information 1 each 04/16/18 00:00 04/16/18 13:22 [facility] [place] [facility] OTHER Not Given [id number] [facility] Morphine Sulfate 2 mg 04/16/18 00:00 04/23/18 12:56 Morphine Inj IV.PUSH 2 mg Q2H PRN Administration PAIN SCALE 6 TO 10 Multi-Ingredient Mouthwash/Gargle 5 ml 04/22/18 13:00 05/06/18 08:53 Magic Mouthwash Adult Liq SWISH-SWAL Not Given QID [facility] Multivitamins 1 tab 05/03/18 09:00 05/06/18 08:52 Theragran PO 1 tab DAILY [facility] Administration Nystatin 5 ml 05/05/18 13:00 07/21/18 08:53 Mycostatin Liq SWISH-SWAL Not Given QID [facility] Ondansetron HCl 4 mg 04/16/18 00:00 04/23/18 10:26 Zofran Inj IV.PUSH 4 mg Q6H PRN Administration NAUSEA OR VOMITING Pantoprazole Sodium 20 mg 05/03/18 09:00 05/06/18 08:52 Protonix PO 20 mg DAILY [facility] Administration Potassium Chloride 40 meq 05/05/18 12:00 05/06/18 08:52 Klor-Con 10 PO 40 meq BID [facility] Administration Prochlorperazine Edisylate 5 mg 04/26/18 08:51 05/03/18 04:26 Compazine Inj IV.PUSH 5 mg Q6H PRN Administration MILD NAUSEA Sodium Chloride 0 ml 04/16/18 09:00 05/06/18 08:53 Ns Flush IV.FLUSH 10 ml DAILY [facility] Administration Sodium Chloride 0 ml 04/16/18 00:00 04/27/18 09:15 Ns Flush IV.FLUSH 5 ml PRN PRN Administration FLUSH AFTER USING IV ACCESS Temazepam 15 mg 04/23/18 21:00 04/30/18 23:14 Restoril PO 15 mg HS PRN Administration INSOMNIA Objective Remarks: GENERAL: young male patient, sitting upright, in no acute distress. SKIN: warm and dry. Leal catheter to right chest wall, dressing dry/intact, no redness/swelling/drainage. Fading rash to abdomen. HEAD: Normocephalic. EYES: No scleral icterus. No injection or drainage. NECK: Supple, trachea midline. CARDIOVASCULAR: Regular rate and rhythm without murmurs. RESPIRATORY: Anterior breath sounds clear & equal bilaterally. No accessory muscle use. GASTROINTESTINAL: Abdomen soft, non-tender, nondistended. EXTREMITIES: No cyanosis, or edema. MUSCULOSKELETAL: Adequate muscle tone. NEUROLOGICAL: No obvious focal deficit. Alert and oriented 's 3. PSYCHIATRIC: Appropriate mood and affect; insight and judgment normal. Assessment/Plan - Plan 04/15 D1 Daunorubicin + Cytarabine 7/1: D2 Daunorubicin + Cytarabine 7/2: D3 Daunorubicin + Cytarabine 7/3: D4 Cytarabine. Afebrile. Tolerating chemo well. 04/19: D5 Cytarabine continue 04/20: D6 Cytarabine continues. 04/21: D7 Cytarabine continues. Afebrile, tolerating well. 04/22: D8 cytarabine. Afebrile, platelet transfusion this a.m. Now with jaw pain. 04/23: D9 Cytarabine completed overnight. Afebrile. Continued jaw pain. Diarrhea 3 x's/day, +n/v x's 1, + insomnia. 04/24: D10 febrile, T-max 102. Blood cultures pending. Currently on cefepime. ID and ENT consult. 04/25: D11 febrile, T-max 102.5F. Blood cultures no growth 2 days. Antibiotics per ID. ENT deferred consult to oral maxillofacial surgery. 04/28: D14 febrile, T-max 100.6F. Blood cultures no growth and 4 days. Current cultures pending. Day 14 bone marrow biopsy scheduled for today. 04/29: D15 febrile, T-max 101.6F. Blood cultures with no growth. Bone marrow biopsy completed yesterday, patient tolerated well. Results pending. 04/30: D16 febrile, T-max 102.1 F. Blood cultures continue with no growth. Bone marrow biopsy pending. 05/01: D17 febrile, T-max 102.1F. Blood cultures continue with no growth. Bone marrow biopsy resulted, pending review with pathology. 05/02: D18 febrile, T-max 102.3F. Blood cultures with no growth. 05/05: D21 febrile, T-max 103.2F. Blood cultures with no growth. 05/06: D22 T-max 100.1F. Blood cultures with no growth. Continues on antibiotics per ID. 1. Neutropenic fever, resolving. Continue neutropenic precaution. Continue to monitor for fevers. antibiotic therapy continues per ID, for prophylaxis. 2. Anemia and thrombocytopenia. Transfuse for hgb <7.0 and platelet <15K or symptoms. There is no signs of bleeding. We will continue to monitor H&H. We will monitor closely for bleeding. 3. Swollen gums, erosive gingivitis-no change. Continue mouth care. Patient with pending dental appointment, upon discharge. 4. Hypokalemia. Resolved. We will continue oral potassium supplementation. Appetite increasing slightly, diarrhea decreasing. 5. Rash to torso, resolving. Suspected drug reaction-ID discontinued cefepime. Small dose of Medrol was given, last dose yesterday. Rash continues to dissipate. Continue to monitor. 6. Diarrhea, subjectively reported as decreasing. Diarrhea was contributing to the hypokalemia, which is now stabilized. 7. Tenderness at Leal site. Dressing dry and intact. No obvious signs of infection noted. Dressing clean dry and intact. Complete view of the site is obstructed by the Biopatch. I have spoken with the nurse and she will do the dressing change today so that we can inspect the site fully. Updated injury at 1031: Central line dressing changed. No redness or drainage noted at the site. Dry scab at incision site. - Attending Statement The exam, history, and the medical decision-making described in the above note were completed with the assistance of the mid-level provider. I reviewed and agree with the findings presented. I attest that I had a [id number] encounter with the patient on the same day, and personally performed and documented my assessment and findings in the medical record. s/p AML induction 7 + 3 High Fever 103 Blood cultures negative 05/04 repeat Blood cx if spikes a fever of 100.5 or greater on Vanco/aftab/Fidelina ID following severely pancytopenic monitor CBC blood product support accordingly
--- NOTE | 2018-05-06 10:08 | P.PN ---
Physical Exam Vital signs: Vital Signs 05/05/18 11:45 05/05/18 15:44 05/05/18 20:40 Temperature 98.6 F 99.4 F 99.7 F H Pulse Rate 94 H 98 H 96 H Respiratory Rate 18 18 16 Blood Pressure 99/53 L 123/74 109/60 Pulse Oximetry 97 99 98 05/06/18 00:31 05/06/18 05:58 05/06/18 08:46 Temperature 99.8 F H 100.1 F H 99.3 F Pulse Rate 95 H 102 H 99 H Respiratory Rate 17 16 18 Blood Pressure 116/57 L 117/72 121/76 Pulse Oximetry 97 98 99 Intake & Output 05/05/18 05/06/18 05/06/18 18:59 06:59 18:59 Intake Total 2014 1197.5 / 1197.5 517.5 / 517.5 Output Total 1350 / 1350 Balance 665 / 665 1197.5 / 1197.5 517.5 / 517.5 Weight 98 kg Intake: IV 865 / 865 717.5 / 717.5 517.5 / 517.5 Levaquin 750 mg Premix Inj 150 150 / 150 ML @ 100 mls/hr IV.SIG Q24H [facility] Rx#:[id number] Merrem Inj 2,000 MG In NS Inj 100 / 100 100 ML @ 200 mls/hr IV.SIG ONCE STA Rx#:[id number] Merrem Inj 2,000 MG In NS Inj 200 / 200 100 ML @ 200 mls/hr IV.SIG Q8H [facility] Rx#:[id number] Mycamine Inj 150 MG In NS Inj 100 / 100 100 ML @ 100 mls/hr IV.SIG Q24H [facility] Rx#:[id number] Vancomycin Inj 1,750 MG In NS 515 / 515 517.5 / 517.5 517.5 / 517.5 Inj 500 ML @ 250 mls/hr IV.SIG Q8H [facility] Rx#:[id number] Oral 1150 / 1150 480 / 480 Output: Urine 1350 / 1350 Other: # Voids 2 Date of Last Bowel Movement 05/05/18 05/06/18 05/06/18 # Bowel Movements 2 1 Narrative: Subjective Interval history: With diarrhea, will start probiotic. No fever or chills. No n/v/d/c. Not eating much. Feels tired. Physical Exam GENERAL: Young male, appears in nad. HEENT: Shaved head and alopecia. NECK: Supple no tender LAD or JVD. HEART: RRR no m/r/g. LUNGS: CTAB , wheezes or crackles. ABDOMEN: +BS, soft, NT, ND. EXTREMITIES: No LE edema. NEURO: Awake and alert. PSYCH: Flat affect. Assessment and Plan 27 YOWM admitted 04/12/2018 due to generalized weakness. His hemoglobin was 3.3 and platelets 30k on admission. Hematology was consulted, and patient was ultimately diagnosed with AML and has undergone induction chemotherapy. His course has been complicated by neutropenic fever with persistent spikes in temperature. 1. Acute myeloid leukemia with pancytopenia - Confirmed with BM biopsy 04/13 - Heme/onc consulted and ff, completed nine days of induction chemo ( daunorubicin + cytarabine x 3 days followed by 6 days of cytarabine) - Per oncology: transfuse if Hb<7.0 or PLT<15K - Hb 7.2 this AM, platelets 15K - Transfused 1 unit of platelets and 1 units RBCs - Continue to monitor CBC closely - 04/28 bone marrow biopsy performed, flow cytometry consistent with residual AML 2. Neutropenic fever -Has been afebrile since yesterday morning - White count continues to be extremely low and patient pancytopenic - U/A and CXR unremarkable from 04/23 - Multiple blood cultures have been negative to date - ID following - On Cefepime, vancomycin, and acyclovir - No specific nidus of infection at this time -Blood cultures are negative to date - Continue to closely monitor 3. Diarrhea - Continue to have loose stool - C. diff PCR negative 4. Jaw pain - CT with no evidence of necrosis or other pathology 5. Mucositis - Continue Diflucan and Nystatin S&S 6. History of seizure - Seizure precautions 7. Hypokalemia - Potassium continues to be low but improved from prior days - Mg WNL - Increase to KCl PO 40 BID - Continue to monitor closely 8. Decreased appetite with hypokalemia/ Replace K and monitor. Check mag as well and replace. Add MVT DVT prophylaxis: SCDs, encourage ambulation. Chemical anticoagulation C/I given severe thrombocytopenia Discharge Planning: neutropenic precautions Discussed with the patient, nurse Results - Labs CBC & Chem 7: 05/06/18 05:45 05/06/18 05:45 Laboratory Results - last 24 hr 05/05/18 05/06/18 05/06/18 14:40 05:45 05:45 WBC 0.4 L RBC 2.72 L Hgb 7.7 L Hct 22.9 L MCV 84.2 MCH 28.4 MCHC 33.7 RDW 14.8 Plt Count 24 L D MPV 7.8 Prelim Diff (Auto) Manual diff required WBC Differential Manual diff final Seg Neuts % (Manual) 28 Band Neuts % (Manual) 24 H Lymphocytes % (Manual) 46 H Monocytes % (Manual) 2 Abs Neuts (Manual) 0.2 L* Differential Comment . Toxic Granulation 2+ H Dohle Bodies Present H Platelet Estimate Low L Platelet Morphology Normal Sodium 136 Potassium 4.0 Chloride 100 Carbon Dioxide 25.7 Anion Gap 10 BUN 5 L Creatinine 0.53 L Estimated GFR Greater than 89 Random Glucose 89 Calcium 8.7 Vancomycin Trough 13.6 H Microbiology 05/04/18 23:20 Blood - Line Aerobic Blood Culture - Preliminary No growth in 1 day 05/04/18 23:20 Blood - Line Anaerobic Blood Culture - Preliminary No growth in 1 day - Procedures BM biopsy Leal catheter placement Echo 04/14/2018 The left ventricular systolic function is hyperdynamic with an estimated ejection fraction in the range of 65- 70%. Normal left ventricular size. Wall thickness is normal. No regional wall motion abnormalities are present. Trace mitral valve regurgitation. The left ventricular systolic function is hyperdynamic with an estimated ejection fraction in the range of 65- 70%. Normal left ventricular size. Wall thickness is normal. No regional wall motion abnormalities are present. Trace mitral valve regurgitation. The estimated pulmonary arterial pressure is 30.6 mmHg. BM BIOPSY 04-28 Assessment and Plan - Assessment (1) AML (acute myeloid leukemia) Code(s): C92.00 - Acute myeloblastic leukemia, not having achieved remission Status: Acute (2) Pancytopenia Code(s): D61.818 - Other pancytopenia Status: Acute (1) AML (acute myeloid leukemia) Qualifiers: Leukemia Active/Remission status: without remission Qualified Code(s): C92.00 - Acute myeloblastic leukemia, not having achieved remission
[2018-05-06] MEDS ORDERED: Lactobacillus Acidophilus/L. Spores Tablet PO ONE (10:46)
[2018-05-06] MEDS: Micafungin Inj 150 MG in Sodium Chlor 0.9% Inj 100 ML IV.SIG SCH (18:17)
[2018-05-06] MEDS: Meropenem Inj 2,000 MG in Sodium Chlor 0.9% Inj 100 ML IV.SIG SCH (20:01)
[2018-05-06] MEDS: Lactobacillus Acidophilus/L. Spores Tablet PO SCH (20:02)
[2018-05-07] MEDS: Meropenem Inj 2,000 MG in Sodium Chlor 0.9% Inj 100 ML IV.SIG SCH ×3 (04:38→21:37)
[2018-05-07 05:20] LABS: Hematocrit 23.9 % (39.0-51.0); Hemoglobin 8.2 gm/dL (13.0-17.0); Mean Corpuscular HGB Conc 34.2 % (32.0-36.0); Mean Corpuscular Hemoglobin 29.1 pg (27.0-34.0); Mean Platelet Volume 9.4 fL (7.0-11.0); Platelet Count 45 th/mm3 (150-450); Red Blood Count 2.81 mil/mm3 (4.50-5.90); Red Cell Distribution Width 14.4 % (11.6-17.2); White Blood Count 0.5 th/mm3 (4.0-11.0)
[2018-05-07] MEDS: Vancomycin Inj 1,750 MG in Sodium Chlor 0.9% Inj 500 ML IV.SIG SCH (05:34)
[2018-05-07] MEDS: Acyclovir 200 MG Capsule PO SCH ×3 (05:34→21:00)
[2018-05-07] MEDS ORDERED: Pharmacy Ordered Lab Info OTHER ONE (05:45)
[2018-05-07 05:46] LABS: Anion Gap 8 meq/L (5-15); Blood Urea Nitrogen 4 mg/dL (7-18); Calcium 8.9 mg/dL (8.5-10.1); Carbon Dioxide 29.1 meq/L (21.0-32.0); Chloride 98 meq/L (98-107); Glomerular Filtration Rate Greater Than 89 mL/min (>89); Glucose,Random 101 mg/dL (74-106); Potassium 4.1 meq/L (3.5-5.1); Sodium 135 meq/L (136-145)
[2018-05-07 05:49] LABS: Vancomycin,Trough 19.6 mcg/mL (5.0-10.0)
[2018-05-07 07:47] LABS: Lymphocytes 36 % (9-44); Monocytes 8 % (0-8); Platelet Morphology Normal (Normal)
[2018-05-07 07:48] LABS: Toxic Granulation 1+
[2018-05-07 07:53] LABS: RBC Morphology Normal (Normal)
[2018-05-07] MEDS: Pantoprazole Sodium 20 MG DR Tablet PO SCH (08:12)
[2018-05-07] MEDS: Chlorhexidine Gluconate 0.12% Liq 15 ML UDC SWISH-SPIT SCH ×2 (08:13→20:58)
[2018-05-07] MEDS: Heparin Central Flush 100 UNIT/ML 5 ML Vial IV.FLUSH SCH (08:13)
[2018-05-07] MEDS: Lactobacillus Acidophilus/L. Spores Tablet PO SCH ×2 (08:13→20:57)
[2018-05-07] MEDS: Nystatin/Diphenhydramine/Lidocaine Mouthwash (Adult) 120 ML Botttle SWISH-SWAL SCH ×4 (08:17→20:58)
[2018-05-07] MEDS: Nystatin Liq 500,000 UNIT/5 ML UDC SWISH-SWAL SCH ×4 (08:17→20:58)
--- NOTE | 2018-05-07 08:37 | P.PN ---
Physical Exam Vital signs: Vital Signs 05/06/18 08:46 05/06/18 12:32 05/06/18 14:42 Temperature 99.3 F 98.9 F 98.5 F Pulse Rate 99 H 99 H 107 H Respiratory Rate 18 18 18 Blood Pressure 121/76 120/75 112/75 Pulse Oximetry 99 97 98 05/06/18 20:00 05/07/18 00:00 05/07/18 04:00 Temperature 98.8 F 99.2 F 99.8 F H Pulse Rate 102 H 103 H Respiratory Rate 18 18 16 Blood Pressure 120/73 113/69 119/73 Pulse Oximetry 98 97 97 05/07/18 08:10 Temperature 98.9 F Pulse Rate 119 H Respiratory Rate 18 Blood Pressure 118/74 Pulse Oximetry 98 Intake & Output 05/06/18 05/07/18 05/07/18 18:59 06:59 18:59 Intake Total 1965.0 / 1965.0 937.5 / 937.5 517.5 / 517.5 Output Total 1050 / 1050 1300 / 1300 Balance 915.0 / 915.0 -362.5 / -362.5 517.5 / 517.5 Weight 96.9 kg Intake: IV 1135.0 / 1135.0 817.5 / 817.5 517.5 / 517.5 Merrem Inj 2,000 MG In NS Inj 200 / 200 100 ML @ 200 mls/hr IV.SIG Q8H [facility] Rx#:[id number] Merrem Inj 2,000 MG In NS Inj 100 / 100 100 ML @ 200 mls/hr IV.SIG Q8H [facility] Rx#:[id number] Mycamine Inj 150 MG In NS Inj 100 / 100 100 ML @ 100 mls/hr IV.SIG Q24H [facility] Rx#:[id number] Vancomycin Inj 1,750 MG In NS 1035.0 / 1035.0 517.5 / 517.5 517.5 / 517.5 Inj 500 ML @ 250 mls/hr IV.SIG Q8H [facility] Rx#:[id number] Oral 830 / 830 120 / 120 Output: Urine 1050 / 1050 1300 / 1300 Other: Date of Last Bowel Movement 05/06/18 05/06/18 # Bowel Movements 2 Narrative: Subjective Interval history: Did not have any diarrhea no bowel movement today. Says he is eating a little bit better appetite is coming back. Says he feels improving. He is eager to go home and hopes he will go home soon. No fever or chills overnight. No nausea vomiting no abdominal cramps. No rash Physical Exam GENERAL: Young male, appears in nad. HEENT: Shaved head and alopecia. NECK: Supple no tender LAD or JVD. HEART: RRR no m/r/g. LUNGS: CTAB , wheezes or crackles. ABDOMEN: +BS, soft, NT, ND. EXTREMITIES: No LE edema. NEURO: Awake and alert. PSYCH: Appropriate mood and affect. Assessment and Plan 27 YOWM admitted 04/12/2018 due to generalized weakness. His hemoglobin was 3.3 and platelets 30k on admission. Hematology was consulted, and patient was ultimately diagnosed with AML and has undergone induction chemotherapy. His course has been complicated by neutropenic fever with persistent spikes in temperature. 1. Acute myeloid leukemia with pancytopenia - Confirmed with BM biopsy 04/13 - Heme/onc consulted and ff, completed nine days of induction chemo ( daunorubicin + cytarabine x 3 days followed by 6 days of cytarabine) - Per oncology: transfuse if Hb<7.0 or PLT<15K - Hb 7.2 this AM, platelets 15K - Transfused 1 unit of platelets and 1 units RBCs - Continue to monitor CBC closely - 04/28 bone marrow biopsy performed, flow cytometry consistent with residual AML 2. Neutropenic fever -Has been afebrile since yesterday morning - White count continues to be extremely low and patient pancytopenic - U/A and CXR unremarkable from 04/23 - Multiple blood cultures have been negative to date - ID following - On Cefepime, vancomycin, and acyclovir - No specific nidus of infection at this time -Blood cultures are negative to date - Continue to closely monitor 3. Diarrhea - Continue to have loose stool - C. diff PCR negative 4. Jaw pain - CT with no evidence of necrosis or other pathology 5. Mucositis - Continue Diflucan and Nystatin S&S 6. History of seizure - Seizure precautions 7. Hypokalemia - Potassium continues to be low but improved from prior days - Mg WNL - Increase to KCl PO 40 BID - Continue to monitor closely 8. Decreased appetite with hypokalemia/ Replace K and monitor. Check mag as well and replace. Add MVT DVT prophylaxis: SCDs, encourage ambulation. Chemical anticoagulation C/I given severe thrombocytopenia Discharge Planning: neutropenic precautions Discussed with the patient, nurse Results - Labs CBC & Chem 7: 05/07/18 04:45 05/07/18 04:45 Laboratory Results - last 24 hr 05/06/18 05/07/18 05/07/18 05:45 04:45 04:45 WBC 0.5 L RBC 2.81 L Hgb 8.2 L Hct 23.9 L MCV 85.0 MCH 29.1 MCHC 34.2 RDW 14.4 Plt Count 45 L D MPV 9.4 Prelim Diff (Auto) Manual diff required WBC Differential Manual diff final Manual diff final Seg Neuts % (Manual) 28 44 Band Neuts % (Manual) 24 H 12 H Lymphocytes % (Manual) 46 H 36 Monocytes % (Manual) 2 8 Abs Neuts (Manual) 0.2 L* 0.3 L* Differential Comment . Toxic Granulation 2+ H 1+ H Dohle Bodies Present H Platelet Estimate Low L Low L Platelet Morphology Normal Normal RBC Morphology Normal Sodium 135 L Potassium 4.1 Chloride 98 Carbon Dioxide 29.1 Anion Gap 8 BUN 4 L Creatinine 0.63 Estimated GFR Greater than 89 Random Glucose 101 Calcium 8.9 Vancomycin Trough 19.6 H Microbiology 05/04/18 23:53 Blood - Peripheral Aerobic Blood Culture - Preliminary No growth in 1 day 05/04/18 23:53 Blood - Peripheral Anaerobic Blood Culture - Preliminary No growth in 1 day 05/04/18 23:20 Blood - Line Aerobic Blood Culture - Preliminary No growth in 2 days 05/04/18 23:20 Blood - Line Anaerobic Blood Culture - Preliminary No growth in 2 days - Procedures BM biopsy Leal catheter placement Echo 04/14/2018 The left ventricular systolic function is hyperdynamic with an estimated ejection fraction in the range of 65- 70%. Normal left ventricular size. Wall thickness is normal. No regional wall motion abnormalities are present. Trace mitral valve regurgitation. The left ventricular systolic function is hyperdynamic with an estimated ejection fraction in the range of 65- 70%. Normal left ventricular size. Wall thickness is normal. No regional wall motion abnormalities are present. Trace mitral valve regurgitation. The estimated pulmonary arterial pressure is 30.6 mmHg. BM BIOPSY 04-28 Assessment and Plan - Assessment (1) AML (acute myeloid leukemia) Code(s): C92.00 - Acute myeloblastic leukemia, not having achieved remission Status: Acute (2) Pancytopenia Code(s): D61.818 - Other pancytopenia Status: Acute (1) AML (acute myeloid leukemia) Qualifiers: Leukemia Active/Remission status: without remission Qualified Code(s): C92.00 - Acute myeloblastic leukemia, not having achieved remission
--- NOTE | 2018-05-07 11:29 | P.PNONC ---
Subjective Interval history: Afebrile. Patient sleeping on approach, awakens easily. He has no complaints at this time. He reports no episodes of diarrhea today. Objective Vital Signs/Intake & Output: Vital Signs 05/06/18 12:32 05/06/18 14:42 05/06/18 20:00 Temperature 98.9 F 98.5 F 98.8 F Pulse Rate 99 H 107 H Respiratory Rate 18 18 18 Blood Pressure 120/75 112/75 120/73 Pulse Oximetry 97 98 98 05/07/18 00:00 05/07/18 04:00 05/07/18 08:10 Temperature 99.2 F 99.8 F H 98.9 F Pulse Rate 102 H 103 H 119 H Respiratory Rate 18 16 18 Blood Pressure 113/69 119/73 118/74 Pulse Oximetry 97 97 98 Intake & Output 05/06/18 05/07/18 05/07/18 18:59 06:59 18:59 Intake Total 1965.0 / 1965.0 937.5 / 937.5 517.5 / 517.5 Output Total 1050 / 1050 1300 / 1300 Balance 915.0 / 915.0 -362.5 / -362.5 517.5 / 517.5 Weight 96.9 kg Intake: IV 1135.0 / 1135.0 817.5 / 817.5 517.5 / 517.5 Merrem Inj 2,000 MG In NS Inj 200 / 200 100 ML @ 200 mls/hr IV.SIG Q8H [facility] Rx#:[id number] Merrem Inj 2,000 MG In NS Inj 100 / 100 100 ML @ 200 mls/hr IV.SIG Q8H [facility] Rx#:[id number] Mycamine Inj 150 MG In NS Inj 100 / 100 100 ML @ 100 mls/hr IV.SIG Q24H [facility] Rx#:[id number] Vancomycin Inj 1,750 MG In NS 1035.0 / 1035.0 517.5 / 517.5 517.5 / 517.5 Inj 500 ML @ 250 mls/hr IV.SIG Q8H [facility] Rx#:[id number] Oral 830 / 830 120 / 120 Output: Urine 1050 / 1050 1300 / 1300 Other: Date of Last Bowel Movement 05/06/18 05/06/18 05/06/18 # Bowel Movements 2 Result Diagrams: 05/07/18 04:45 05/07/18 04:45 Laboratory Results: Laboratory Results - last 24 hr 05/07/18 05/07/18 04:45 04:45 WBC 0.5 L RBC 2.81 L Hgb 8.2 L Hct 23.9 L MCV 85.0 MCH 29.1 MCHC 34.2 RDW 14.4 Plt Count 45 L D MPV 9.4 Prelim Diff (Auto) Manual diff required WBC Differential Manual diff final Seg Neuts % (Manual) 44 Band Neuts % (Manual) 12 H Lymphocytes % (Manual) 36 Monocytes % (Manual) 8 Abs Neuts (Manual) 0.3 L* Differential Comment . Toxic Granulation 1+ H Platelet Estimate Low L Platelet Morphology Normal RBC Morphology Normal Sodium 135 L Potassium 4.1 Chloride 98 Carbon Dioxide 29.1 Anion Gap 8 BUN 4 L Creatinine 0.63 Estimated GFR Greater than 89 Random Glucose 101 Calcium 8.9 Vancomycin Trough 19.6 H Culture Results: Microbiology 05/04/18 23:53 Aerobic Blood Culture - Preliminary Blood - Peripheral No growth in 2 days Anaerobic Blood Culture - Preliminary No growth in 2 days 05/04/18 23:20 Aerobic Blood Culture - Preliminary Blood - Line No growth in 3 days Anaerobic Blood Culture - Preliminary No growth in 3 days 04/29/18 02:07 Aerobic Blood Culture - Final Blood - Peripheral No growth in 5 days Anaerobic Blood Culture - Final No growth in 5 days 04/29/18 01:20 Aerobic Blood Culture - Final Blood - Line No growth in 5 days Anaerobic Blood Culture - Final No growth in 5 days Medications: Active Medications Generic Name Dose Route Start Last Admin Trade Name Freq PRN Reason Stop Dose Admin Acetaminophen 650 mg 05/01/18 13:55 05/01/18 14:07 Tylenol PO 650 mg Q4H PRN Administration BLOOD PRODUCT TRANSFUSION Hydrocodone Bitart/Acetaminophen 1 tab 04/23/18 11:51 04/28/18 19:45 [place] 7.5/325 PO 1 tab Q6H PRN Administration PAIN SCALE 6 TO 10 Acyclovir 400 mg 04/24/18 22:00 05/07/18 05:34 Zovirax PO 400 mg Q8HR [facility] Administration Chlorhexidine Gluconate 15 ml 04/23/18 21:00 05/07/18 08:13 Peridex 0.12% Liq SWISH-SPIT 15 ml BID [facility] Administration Diphenhydramine HCl 25 mg 05/01/18 13:54 05/04/18 09:56 Benadryl PO 25 mg Q4H PRN Administration BLOOD PRODUCT TRANSFUSION Heparin Sodium (Porcine) 0 unit 04/16/18 00:00 04/26/18 00:44 Heparin Central Flush IV.FLUSH 200 unit PRN PRN Administration Flush each lumen Heparin Sodium (Porcine) 0 unit 04/16/18 09:00 05/07/18 08:13 Heparin Central Flush IV.FLUSH 500 unit DAILY [facility] Administration Micafungin Sodium 150 mg/ 100 mls @ 100 mls/hr 04/30/18 18:00 05/06/18 19:27 Sodium Chloride IV.SIG Infused Q24H [facility] Infusion Meropenem 2,000 mg/ Sodium 100 mls @ 200 mls/hr 05/06/18 20:00 05/07/18 05:10 Chloride IV.SIG Infused Q8H [facility] Infusion Lactobacillus Acidophilus 1 tab 05/06/18 21:00 05/07/18 08:13 Lactinex PO 1 tab BID [facility] Administration Lidocaine HCl 15 ml 04/23/18 10:00 05/03/18 14:07 Xylocaine 2% Viscous SWISH-SPIT 15 ml Q4H PRN Administration PAIN SCALE 6 TO 10 Lorazepam 0.5 mg 04/26/18 08:54 05/06/18 23:23 Ativan Inj IV.PUSH 0.5 mg Q6H PRN Administration MILD NAUSEA Miscellaneous Information 1 each 04/16/18 00:00 04/16/18 13:22 [facility] [place] OTHER Not Given Q361D [facility] Morphine Sulfate 2 mg 04/16/18 00:00 04/23/18 12:56 Morphine Inj IV.PUSH 2 mg Q2H PRN Administration PAIN SCALE 6 TO 10 Multi-Ingredient Mouthwash/Gargle 5 ml 04/22/18 13:00 05/07/18 08:17 Magic Mouthwash Adult Liq SWISH-SWAL Not Given QID [facility] Multivitamins 1 tab 05/03/18 09:00 05/07/18 08:12 Theragran PO 1 tab DAILY [facility] Administration Nystatin 5 ml 05/05/18 13:00 05/07/18 08:17 Mycostatin Liq SWISH-SWAL Not Given QID [facility] Ondansetron HCl 4 mg 04/16/18 00:00 04/23/18 10:26 Zofran Inj IV.PUSH 4 mg Q6H PRN Administration NAUSEA OR VOMITING Pantoprazole Sodium 20 mg 05/03/18 09:00 05/07/18 08:12 Protonix PO 20 mg DAILY [facility] Administration Prochlorperazine Edisylate 5 mg 04/26/18 08:51 05/03/18 04:26 Compazine Inj IV.PUSH 5 mg Q6H PRN Administration MILD NAUSEA Sodium Chloride 0 ml 04/16/18 09:00 05/07/18 08:13 Ns Flush IV.FLUSH 10 ml DAILY [facility] Administration Sodium Chloride 0 ml 04/16/18 00:00 04/27/18 09:15 Ns Flush IV.FLUSH 5 ml PRN PRN Administration FLUSH AFTER USING IV ACCESS Temazepam 15 mg 04/23/18 21:00 04/30/18 23:14 Restoril PO 15 mg HS PRN Administration INSOMNIA Objective Remarks: GENERAL: young male patient, lying in bed, in no acute distress. SKIN: warm and dry. Leal catheter to right chest wall, dressing dry/intact, no redness/swelling/drainage. 3 Bone marrow biopsy sites to lower central back , keloid in appearance, no redness or discharge. HEAD: Normocephalic. EYES: No scleral icterus. No injection or drainage. PEARLA. NECK: Supple, trachea midline. CARDIOVASCULAR: Regular rate and rhythm without murmurs. RESPIRATORY: Posterior breath sounds clear & equal bilaterally. No accessory muscle use. GASTROINTESTINAL: Abdomen soft, non-tender, nondistended. EXTREMITIES: No cyanosis, or edema. MUSCULOSKELETAL: Adequate muscle tone. NEUROLOGICAL: No obvious focal deficit. Alert and oriented 's 3. PSYCHIATRIC: Appropriate mood and affect; insight and judgment normal. Assessment/Plan - Plan 04/15 D1 Daunorubicin + Cytarabine 04/16: D2 Daunorubicin + Cytarabine 04/17: D3 Daunorubicin + Cytarabine 04/18: D4 Cytarabine. Afebrile. Tolerating chemo well. 04/19: D5 Cytarabine continue 04/20: D6 Cytarabine continues. 04/21: D7 Cytarabine continues. Afebrile, tolerating well. 04/22: D8 cytarabine. Afebrile, platelet transfusion this a.m. Now with jaw pain. 04/23: D9 Cytarabine completed overnight. Afebrile. Continued jaw pain. Diarrhea 3 x's/day, +n/v x's 1, + insomnia. 04/24: D10 febrile, T-max 102. Blood cultures pending. Currently on cefepime. ID and ENT consult. 04/25: D11 febrile, T-max 102.5F. Blood cultures no growth 2 days. Antibiotics per ID. ENT deferred consult to oral maxillofacial surgery. 04/28: D14 febrile, T-max 100.6F. Blood cultures no growth and 4 days. Current cultures pending. Day 14 bone marrow biopsy scheduled for today. 04/29: D15 febrile, T-max 101.6F. Blood cultures with no growth. Bone marrow biopsy completed yesterday, patient tolerated well. Results pending. 04/30: D16 febrile, T-max 102.1 F. Blood cultures continue with no growth. Bone marrow biopsy pending. 05/01: D17 febrile, T-max 102.1F. Blood cultures continue with no growth. Bone marrow biopsy resulted, pending review with pathology. 05/02: D18 febrile, T-max 102.3F. Blood cultures with no growth. 05/05: D21 febrile, T-max 103.2F. Blood cultures with no growth. 05/06: D22 T-max 100.1F. Blood cultures with no growth. Continues on antibiotics per ID. 05/07: D23 afebrile. Blood cultures with no growth. Pancytopenia improving. 1. Neutropenic fever, resolved x's 24 hours. Continue neutropenic precaution. Continue to monitor for fevers. antibiotic therapy continues per ID, for prophylaxis. 2. Anemia and thrombocytopenia. Transfuse for hgb <7.0 and platelet <15K or symptoms. There is no signs of bleeding. We will continue to monitor H&H, and transfuse as needed. No transfusions indicated for today. 3. Swollen gums, erosive gingivitis-no change. Continue mouth care. Patient with pending dental appointment, upon discharge. 4. Hypokalemia. Resolved. We will continue oral potassium supplementation. Appetite increasing slightly, diarrhea continues to improve. 5. Rash to torso, resolved. 6. Diarrhea, continues to improve. 7. Continue supportive care. - Attending Statement The exam, history, and the medical decision-making described in the above note were completed with the assistance of the mid-level provider. I reviewed and agree with the findings presented. I attest that I had a [id number] encounter with the patient on the same day, and personally performed and documented my assessment and findings in the medical record. AML s/p induction severe pancytopenia afebrile over the last 24 hours blood cultures negative supportive care monitor daily cbc
[2018-05-07] MEDS: Micafungin Inj 150 MG in Sodium Chlor 0.9% Inj 100 ML IV.SIG SCH (17:04)
[2018-05-07] MEDS: Vancomycin Inj 1,500 MG in Sodium Chlor 0.9% Inj 500 ML IV.SIG SCH (18:04)
[2018-05-08] MEDS: Vancomycin Inj 1,500 MG in Sodium Chlor 0.9% Inj 500 ML IV.SIG SCH ×4 (02:50→22:38)
[2018-05-08 05:14] LABS: Hematocrit 24.2 % (39.0-51.0); Hemoglobin 8.3 gm/dL (13.0-17.0); Mean Corpuscular HGB Conc 34.3 % (32.0-36.0); Mean Corpuscular Hemoglobin 28.7 pg (27.0-34.0); Mean Corpuscular Volume 83.4 fL (80.0-100.0); Platelet Count 68 th/mm3 (150-450); Red Cell Distribution Width 13.9 % (11.6-17.2); White Blood Count 0.6 th/mm3 (4.0-11.0)
[2018-05-08 05:28] LABS: Anion Gap 8 meq/L (5-15); Blood Urea Nitrogen 4 mg/dL (7-18); Calcium 8.7 mg/dL (8.5-10.1); Chloride 98 meq/L (98-107); Glomerular Filtration Rate Greater Than 89 mL/min (>89); Glucose,Random 101 mg/dL (74-106); Sodium 135 meq/L (136-145)
[2018-05-08] MEDS: Acyclovir 200 MG Capsule PO SCH ×3 (05:32→21:13)
[2018-05-08] MEDS: Meropenem Inj 2,000 MG in Sodium Chlor 0.9% Inj 100 ML IV.SIG SCH ×3 (05:32→20:13)
[2018-05-08 07:26] LABS: Eosinophils 1 % (0-4); Lymphocytes 39 % (9-44); Monocytes 3 % (0-8)
[2018-05-08 07:27] LABS: Platelet Morphology Normal (Normal); Toxic Granulation 1+
[2018-05-08] MEDS: Lactobacillus Acidophilus/L. Spores Tablet PO SCH ×2 (08:20→20:12)
[2018-05-08] MEDS: Pantoprazole Sodium 20 MG DR Tablet PO SCH (08:20)
[2018-05-08] MEDS: Chlorhexidine Gluconate 0.12% Liq 15 ML UDC SWISH-SPIT SCH ×2 (08:21→20:04)
[2018-05-08] MEDS: Nystatin Liq 500,000 UNIT/5 ML UDC SWISH-SWAL SCH ×3 (08:21→20:04)
--- NOTE | 2018-05-08 12:27 | P.PNONC ---
Subjective Interval history: Afebrile 3 days. Patient has no complaints at this time. He states he did not have any diarrhea yesterday or today. Objective Vital Signs/Intake & Output: Vital Signs 05/07/18 15:01 05/07/18 20:00 05/08/18 00:00 Temperature 98.8 F 98.6 F 99 F Pulse Rate 108 H 99 H 107 H Respiratory Rate 18 16 16 Blood Pressure 116/70 128/79 111/62 Pulse Oximetry 98 99 99 05/08/18 04:00 05/08/18 08:42 05/08/18 12:01 Temperature 98.9 F 99.7 F H 99.2 F Pulse Rate 97 H 101 H 100 H Respiratory Rate 18 20 Blood Pressure 101/50 L 104/65 116/75 Pulse Oximetry 97 98 98 Intake & Output 05/07/18 05/08/18 05/08/18 18:59 06:59 18:59 Intake Total 1617.5 / 1617.5 1830 / 1830 Output Total 1050 / 1050 1700 / 1700 Balance 567.5 / 567.5 130 / 130 Weight 97 kg Intake: IV 617.5 / 617.5 1330 / 1330 Merrem Inj 2,000 MG In NS Inj 100 / 100 200 / 200 100 ML @ 200 mls/hr IV.SIG Q8H [facility] Rx#:[id number] Mycamine Inj 150 MG In NS Inj 100 / 100 100 ML @ 100 mls/hr IV.SIG Q24H [facility] Rx#:[id number] Vancomycin Inj 1,500 MG In NS 517.5 / 517.5 1030 / 1030 Inj 500 ML @ 250 mls/hr IV.SIG Q8H [facility] Rx#:[id number] Oral 1000 / 1000 500 / 500 Output: Urine 1050 / 1050 1700 / 1700 Other: Date of Last Bowel Movement 05/06/18 05/06/18 # Bowel Movements 0 # Emeses 1 Result Diagrams: 05/08/18 04:22 05/08/18 04:22 Laboratory Results: Laboratory Results - last 24 hr 05/08/18 05/08/18 04:22 04:22 WBC 0.6 L RBC 2.90 L Hgb 8.3 L Hct 24.2 L MCV 83.4 MCH 28.7 MCHC 34.3 RDW 13.9 Plt Count 68 L D MPV 9.0 Prelim Diff (Auto) Manual diff required WBC Differential Manual diff final Seg Neuts % (Manual) 55 Band Neuts % (Manual) 2 Lymphocytes % (Manual) 39 Monocytes % (Manual) 3 Eosinophils % (Manual) 1 Abs Neuts (Manual) 0.3 L* Differential Comment . Toxic Granulation 1+ H Platelet Estimate Low L Platelet Morphology Normal Sodium 135 L Potassium 4.0 Chloride 98 Carbon Dioxide 29.0 Anion Gap 8 BUN 4 L Creatinine 0.60 Estimated GFR Greater than 89 Random Glucose 101 Calcium 8.7 Culture Results: Microbiology 05/04/18 23:53 Aerobic Blood Culture - Preliminary Blood - Peripheral No growth in 3 days Anaerobic Blood Culture - Preliminary No growth in 3 days 05/04/18 23:20 Aerobic Blood Culture - Preliminary Blood - Line No growth in 4 days Anaerobic Blood Culture - Preliminary No growth in 4 days Medications: Active Medications Generic Name Dose Route Start Last Admin Trade Name Freq PRN Reason Stop Dose Admin Acetaminophen 650 mg 05/01/18 13:55 05/01/18 14:07 Tylenol PO 650 mg Q4H PRN Administration BLOOD PRODUCT TRANSFUSION Hydrocodone Bitart/Acetaminophen 1 tab 04/23/18 11:51 04/28/18 19:45 [place] 7.5/325 PO 1 tab Q6H PRN Administration PAIN SCALE 6 TO 10 Acyclovir 400 mg 04/24/18 22:00 05/08/18 05:32 Zovirax PO 400 mg Q8HR [facility] Administration Chlorhexidine Gluconate 15 ml 04/23/18 21:00 05/08/18 08:21 Peridex 0.12% Liq SWISH-SPIT 15 ml BID [facility] Administration Diphenhydramine HCl 25 mg 05/01/18 13:54 05/04/18 09:56 Benadryl PO 25 mg Q4H PRN Administration BLOOD PRODUCT TRANSFUSION Heparin Sodium (Porcine) 0 unit 04/16/18 00:00 04/26/18 00:44 Heparin Central Flush IV.FLUSH 200 unit PRN PRN Administration Flush each lumen Heparin Sodium (Porcine) 0 unit 04/16/18 09:00 05/07/18 08:13 Heparin Central Flush IV.FLUSH 500 unit DAILY [facility] Administration Micafungin Sodium 150 mg/ 100 mls @ 100 mls/hr 04/30/18 18:00 05/07/18 20:52 Sodium Chloride IV.SIG Infused Q24H [facility] Infusion Meropenem 2,000 mg/ Sodium 100 mls @ 200 mls/hr 05/06/18 20:00 05/08/18 06:53 Chloride IV.SIG Infused Q8H [facility] Infusion Vancomycin HCl 1,500 mg/ 515 mls @ 250 mls/hr 05/07/18 18:00 05/08/18 11:45 Sodium Chloride IV.SIG 250 mls/hr Q8H [facility] Administration Lactobacillus Acidophilus 1 tab 05/06/18 21:00 05/08/18 08:20 Lactinex PO 1 tab BID [facility] Administration Lidocaine HCl 15 ml 04/23/18 10:00 05/03/18 14:07 Xylocaine 2% Viscous SWISH-SPIT 15 ml Q4H PRN Administration PAIN SCALE 6 TO 10 Lorazepam 0.5 mg 04/26/18 08:54 05/07/18 22:30 Ativan Inj IV.PUSH 0.25 mg Q6H PRN Administration MILD NAUSEA Miscellaneous Information 1 each 04/16/18 00:00 04/16/18 13:22 [facility] [place] OTHER Not Given Q361D [facility] Morphine Sulfate 2 mg 04/16/18 00:00 04/23/18 12:56 Morphine Inj IV.PUSH 2 mg Q2H PRN Administration PAIN SCALE 6 TO 10 Multi-Ingredient Mouthwash/Gargle 5 ml 04/22/18 13:00 05/07/18 20:58 Magic Mouthwash Adult Liq SWISH-SWAL Not Given QID [facility] Multivitamins 1 tab 05/03/18 09:00 05/08/18 08:21 Theragran PO 1 tab DAILY [facility] Administration Nystatin 5 ml 05/05/18 13:00 05/08/18 08:21 Mycostatin Liq SWISH-SWAL 5 ml QID [facility] Administration Ondansetron HCl 4 mg 04/16/18 00:00 04/23/18 10:26 Zofran Inj IV.PUSH 4 mg Q6H PRN Administration NAUSEA OR VOMITING Pantoprazole Sodium 20 mg 05/03/18 09:00 05/08/18 08:20 Protonix PO 20 mg DAILY [facility] Administration Potassium Chloride 40 meq 05/07/18 21:00 05/08/18 08:20 Klor-Con 10 PO 40 meq DAILY [facility] Administration Prochlorperazine Edisylate 5 mg 04/26/18 08:51 05/03/18 04:26 Compazine Inj IV.PUSH 5 mg Q6H PRN Administration MILD NAUSEA Sodium Chloride 0 ml 04/16/18 09:00 05/07/18 08:13 Ns Flush IV.FLUSH 10 ml DAILY [facility] Administration Sodium Chloride 0 ml 04/16/18 00:00 04/27/18 09:15 Ns Flush IV.FLUSH 5 ml PRN PRN Administration FLUSH AFTER USING IV ACCESS Temazepam 15 mg 04/23/18 21:00 04/30/18 23:14 Restoril PO 15 mg HS PRN Administration INSOMNIA Objective Remarks: GENERAL: Young male patient, lying in bed, in no acute distress. SKIN: warm and dry. Leal catheter/right chest wall, no redness/swelling/ drainage. HEAD: Normocephalic. EYES: No scleral icterus. No injection or drainage. PEARLA. NECK: Supple, trachea midline. CARDIOVASCULAR: Regular rate and rhythm without murmurs. RESPIRATORY: Anterior breath sounds clear & equal bilaterally. No accessory muscle use. GASTROINTESTINAL: Abdomen soft, non-tender, nondistended. EXTREMITIES: No cyanosis, or edema. MUSCULOSKELETAL: Adequate muscle tone. NEUROLOGICAL: No obvious focal deficit. Alert and oriented 's 3. PSYCHIATRIC: Appropriate mood and affect; insight and judgment normal. Assessment/Plan (1) Pancytopenia due to antineoplastic chemotherapy Code(s): D61.810 - Antineoplastic chemotherapy induced pancytopenia; T45.1X5A - Adverse effect of antineoplastic and immunosuppressive drugs, initial encounter Status: Acute (2) AML (acute myeloid leukemia) Code(s): C92.00 - Acute myeloblastic leukemia, not having achieved remission Status: Acute - Plan 04/15 D1 Daunorubicin + Cytarabine 04/16: D2 Daunorubicin + Cytarabine 72: D3 Daunorubicin + Cytarabine 04/18: D4 Cytarabine. Afebrile. Tolerating chemo well. 04/19: D5 Cytarabine continue 7: D6 Cytarabine continues. 04/21: D7 Cytarabine continues. Afebrile, tolerating well. 04/22: D8 cytarabine. Afebrile, platelet transfusion this a.m. Now with jaw pain. 04/23: D9 Cytarabine completed overnight. Afebrile. Continued jaw pain. Diarrhea 3 x's/day, +n/v x's 1, + insomnia. 04/24: D10 febrile, T-max 102. Blood cultures pending. Currently on cefepime. ID and ENT consult. 04/25: D11 febrile, T-max 102.5F. Blood cultures no growth 2 days. Antibiotics per ID. ENT deferred consult to oral maxillofacial surgery. 04/28: D14 febrile, T-max 100.6F. Blood cultures no growth and 4 days. Current cultures pending. Day 14 bone marrow biopsy scheduled for today. 04/29: D15 febrile, T-max 101.6F. Blood cultures with no growth. Bone marrow biopsy completed yesterday, patient tolerated well. Results pending. 04/30: D16 febrile, T-max 102.1 F. Blood cultures continue with no growth. Bone marrow biopsy pending. 05/01: D17 febrile, T-max 102.1F. Blood cultures continue with no growth. Bone marrow biopsy resulted, pending review with pathology. 05/02: D18 febrile, T-max 102.3F. Blood cultures with no growth. 05/05: D21 febrile, T-max 103.2F. Blood cultures with no growth. 05/06: D22 T-max 100.1F. Blood cultures with no growth. Continues on antibiotics per ID. 05/07: D23 afebrile. Blood cultures with no growth. Pancytopenia improving. 05/08: D24 afebrile. Blood cultures with no growth. Hgb 8.3, Platelets 68k, Abs [place] 300. 1. Neutropenic fever, resolved x's 3 days. Continue neutropenic precaution until neutrophils recover. Continue to monitor for fevers. antibiotic therapy continues per ID, for prophylaxis. 2. Anemia and thrombocytopenia, continues to improve. Transfuse for hgb <7.0 and platelet <15K or symptoms. There is no signs of bleeding. We will continue to monitor H&H, and transfuse as needed. No transfusions indicated for today. 3. Swollen gums, erosive gingivitis-no change. Continue mouth care. Patient with pending dental appointment, upon discharge. 4. Hypokalemia. Resolved. 5. Diarrhea, resolved. 6. Continue supportive care. - Attending Statement The exam, history, and the medical decision-making described in the above note were completed with the assistance of the mid-level provider. I reviewed and agree with the findings presented. I attest that I had a [id number] encounter with the patient on the same day, and personally performed and documented my assessment and findings in the medical record. Patient seen and examined. Rash is completely resolved. He has been afebrile. He is off Medrol. He is taking Tylenol only as needed. He has not needed it for 3 days. His cultures remain negative. His gum disease remains a problem. He is a neutrophil count is increasing but slowly. He is no longer needing platelets or red cell transfusions. We plan to discontinue antibiotic therapy once his ANC is greater than 1000. He may be discharged home for outpatient follow-up as needed once his ANC is greater than 1500. Arrangements for remission bone marrow can be coordinated as an outpatient. Anticipate that he will need follow-up oncology clinic next week. (2) AML (acute myeloid leukemia) Qualifiers: Leukemia Active/Remission status: without remission Qualified Code(s): C92.00 - Acute myeloblastic leukemia, not having achieved remission
--- NOTE | 2018-05-08 14:20 | P.PN ---
Physical Exam Vital signs: Vital Signs 05/07/18 15:01 05/07/18 20:00 05/08/18 00:00 Temperature 98.8 F 98.6 F 99 F Pulse Rate 108 H 99 H 107 H Respiratory Rate 18 16 16 Blood Pressure 116/70 128/79 111/62 Pulse Oximetry 98 99 99 05/08/18 04:00 05/08/18 08:42 05/08/18 12:01 Temperature 98.9 F 99.7 F H 99.2 F Pulse Rate 97 H 101 H 100 H Respiratory Rate 18 20 Blood Pressure 101/50 L 104/65 116/75 Pulse Oximetry 97 98 98 Intake & Output 05/07/18 05/08/18 05/08/18 18:59 06:59 18:59 Intake Total 1617.5 / 1617.5 1830 / 1830 Output Total 1050 / 1050 1700 / 1700 Balance 567.5 / 567.5 130 / 130 Weight 97 kg Intake: IV 617.5 / 617.5 1330 / 1330 Merrem Inj 2,000 MG In NS Inj 100 / 100 200 / 200 100 ML @ 200 mls/hr IV.SIG Q8H [facility] Rx#:[id number] Mycamine Inj 150 MG In NS Inj 100 / 100 100 ML @ 100 mls/hr IV.SIG Q24H [facility] Rx#:[id number] Vancomycin Inj 1,500 MG In NS 517.5 / 517.5 1030 / 1030 Inj 500 ML @ 250 mls/hr IV.SIG Q8H [facility] Rx#:[id number] Oral 1000 / 1000 500 / 500 Output: Urine 1050 / 1050 1700 / 1700 Other: Date of Last Bowel Movement 05/06/18 05/06/18 # Bowel Movements 0 # Emeses 1 Narrative: Subjective Interval history: Did not have any diarrhea, appetite is better and tolerates food, eating better. No fever or chills . No nausea vomiting no abdominal cramps. No rash Physical Exam GENERAL: Young male, appears in nad. HEENT: Shaved head and alopecia. NECK: Supple no tender LAD or JVD. HEART: RRR no m/r/g. LUNGS: CTAB , wheezes or crackles. ABDOMEN: +BS, soft, NT, ND. EXTREMITIES: No LE edema. NEURO: Awake and alert. PSYCH: Appropriate mood and affect. Assessment and Plan 27 YOWM admitted 04/12/2018 due to generalized weakness. His hemoglobin was 3.3 and platelets 30k on admission. Hematology was consulted, and patient was ultimately diagnosed with AML and has undergone induction chemotherapy. His course has been complicated by neutropenic fever with persistent spikes in temperature. 1. Acute myeloid leukemia with pancytopenia - Confirmed with BM biopsy 04/13 - Heme/onc consulted and ff, completed nine days of induction chemo ( daunorubicin + cytarabine x 3 days followed by 6 days of cytarabine) - Per oncology: transfuse if Hb<7.0 or PLT<15K - Hb 7.2 this AM, platelets 15K - Transfused 1 unit of platelets and 1 units RBCs - Continue to monitor CBC closely - 04/28 bone marrow biopsy performed, flow cytometry consistent with residual AML 2. Neutropenic fever -Has been afebrile since yesterday morning - White count continues to be extremely low and patient pancytopenic - U/A and CXR unremarkable from 04/23 - Multiple blood cultures have been negative to date - ID following - On Cefepime, vancomycin, and acyclovir - No specific nidus of infection at this time -Blood cultures are negative to date - Continue to closely monitor 3. Diarrhea - Continue to have loose stool - C. diff PCR negative 4. Jaw pain - CT with no evidence of necrosis or other pathology 5. Mucositis - Continue Diflucan and Nystatin S&S 6. History of seizure - Seizure precautions 7. Hypokalemia - Potassium continues to be low but improved from prior days - Mg WNL - Increase to KCl PO 40 BID - Continue to monitor closely 8. Decreased appetite with hypokalemia/ Replace K and monitor. Check mag as well and replace. Add MVT DVT prophylaxis: SCDs, encourage ambulation. Chemical anticoagulation C/I given severe thrombocytopenia Discharge Planning: neutropenic precautions Discussed with the patient, nurse Improving DC plan: poss DC next week, when cleared by hematology oncology Results - Labs CBC & Chem 7: 05/08/18 04:22 05/08/18 04:22 Laboratory Results - last 24 hr 05/08/18 05/08/18 04:22 04:22 WBC 0.6 L RBC 2.90 L Hgb 8.3 L Hct 24.2 L MCV 83.4 MCH 28.7 MCHC 34.3 RDW 13.9 Plt Count 68 L D MPV 9.0 Prelim Diff (Auto) Manual diff required WBC Differential Manual diff final Seg Neuts % (Manual) 55 Band Neuts % (Manual) 2 Lymphocytes % (Manual) 39 Monocytes % (Manual) 3 Eosinophils % (Manual) 1 Abs Neuts (Manual) 0.3 L* Differential Comment . Toxic Granulation 1+ H Platelet Estimate Low L Platelet Morphology Normal Sodium 135 L Potassium 4.0 Chloride 98 Carbon Dioxide 29.0 Anion Gap 8 BUN 4 L Creatinine 0.60 Estimated GFR Greater than 89 Random Glucose 101 Calcium 8.7 Microbiology 05/04/18 23:53 Blood - Peripheral Aerobic Blood Culture - Preliminary No growth in 3 days 05/04/18 23:53 Blood - Peripheral Anaerobic Blood Culture - Preliminary No growth in 3 days 05/04/18 23:20 Blood - Line Aerobic Blood Culture - Preliminary No growth in 4 days 05/04/18 23:20 Blood - Line Anaerobic Blood Culture - Preliminary No growth in 4 days - Procedures BM biopsy Leal catheter placement Echo 04/14/2018 The left ventricular systolic function is hyperdynamic with an estimated ejection fraction in the range of 65- 70%. Normal left ventricular size. Wall thickness is normal. No regional wall motion abnormalities are present. Trace mitral valve regurgitation. The left ventricular systolic function is hyperdynamic with an estimated ejection fraction in the range of 65- 70%. Normal left ventricular size. Wall thickness is normal. No regional wall motion abnormalities are present. Trace mitral valve regurgitation. The estimated pulmonary arterial pressure is 30.6 mmHg. BM BIOPSY 04-28 Assessment and Plan - Assessment (1) AML (acute myeloid leukemia) Code(s): C92.00 - Acute myeloblastic leukemia, not having achieved remission Status: Acute (2) Pancytopenia Code(s): D61.818 - Other pancytopenia Status: Acute (1) AML (acute myeloid leukemia) Qualifiers: Leukemia Active/Remission status: without remission Qualified Code(s): C92.00 - Acute myeloblastic leukemia, not having achieved remission
--- NOTE | 2018-05-08 15:42 | P.PNID ---
Subjective Remarks: Patient is afebrile. No elevated temperature in last 48 hours. He feels okay. Appetite is good. No diarrhea. No shortness of breath No headache Denies back pain or dysuria. Denies headache. White blood cell count up to 600 today with 55% neutrophils. Leg count increased to 68,000. 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 The patient has undergone chemotherapy with daunorubicin plus cytarabine. Antibiotics: Acyclovir Micafungin Vancomycin Meropenem Lines: Leal catheter without evidence of infection. Allergies/Adverse Reactions: Allergies No Known Allergies Allergy (Unknown, Uncoded 04/12/18 14:54) Objective Vital Signs 05/07/18 20:00 05/08/18 00:00 05/08/18 04:00 Temperature 98.6 F 99 F 98.9 F Pulse Rate 99 H 107 H 97 H Respiratory Rate 16 16 Blood Pressure 128/79 111/62 101/50 L Pulse Oximetry 99 99 97 05/08/18 08:42 05/08/18 12:01 Temperature 99.7 F H 99.2 F Pulse Rate 101 H 100 H Respiratory Rate 18 20 Blood Pressure 104/65 116/75 Pulse Oximetry 98 98 Intake & Output 05/07/18 05/08/18 05/08/18 18:59 06:59 18:59 Intake Total 1617.5 / 1617.5 1830 / 1830 Output Total 1050 / 1050 1700 / 1700 Balance 567.5 / 567.5 130 / 130 Weight 97 kg Intake: IV 617.5 / 617.5 1330 / 1330 Merrem Inj 2,000 MG In NS Inj 100 / 100 200 / 200 100 ML @ 200 mls/hr IV.SIG Q8H [facility] Rx#:[id number] Mycamine Inj 150 MG In NS Inj 100 / 100 100 ML @ 100 mls/hr IV.SIG Q24H [facility] Rx#:[id number] Vancomycin Inj 1,500 MG In NS 517.5 / 517.5 1030 / 1030 Inj 500 ML @ 250 mls/hr IV.SIG Q8H [facility] Rx#:[id number] Oral 1000 / 1000 500 / 500 Output: Urine 1050 / 1050 1700 / 1700 Other: Date of Last Bowel Movement 05/06/18 05/06/18 # Bowel Movements 0 # Emeses 1 05/04/18 23:53 Blood - Peripheral Aerobic Blood Culture - Preliminary No growth in 3 days 05/04/18 23:53 Blood - Peripheral Anaerobic Blood Culture - Preliminary No growth in 3 days 05/04/18 23:20 Blood - Line Aerobic Blood Culture - Preliminary No growth in 4 days 05/04/18 23:20 Blood - Line Anaerobic Blood Culture - Preliminary No growth in 4 days Lab - Hematology Results 05/07/18 05/08/18 04:45 04:22 WBC 0.5 L 0.6 L RBC 2.81 L 2.90 L Hgb 8.2 L 8.3 L Hct 23.9 L 24.2 L MCV 85.0 83.4 MCH 29.1 28.7 MCHC 34.2 34.3 RDW 14.4 13.9 Plt Count 45 L D 68 L D MPV 9.4 9.0 Prelim Diff (Auto) Manual diff required Manual diff required WBC Differential Manual diff final Manual diff final Seg Neuts % (Manual) 44 55 Band Neuts % (Manual) 12 H 2 Lymphocytes % (Manual) 36 39 Monocytes % (Manual) 8 3 Eosinophils % (Manual) 1 Abs Neuts (Manual) 0.3 L* 0.3 L* Differential Comment . . Toxic Granulation 1+ H 1+ H Platelet Estimate Low L Low L Platelet Morphology Normal Normal RBC Morphology Normal Lab - Chemistry Results 05/07/18 05/08/18 04:45 04:22 Sodium 135 L 135 L Potassium 4.1 4.0 Chloride 98 98 Carbon Dioxide 29.1 29.0 Anion Gap 8 8 BUN 4 L 4 L Creatinine 0.63 0.60 Estimated GFR Greater than 89 Greater than 89 Random Glucose 101 101 Calcium 8.9 8.7 Imaging: ITS Impressions Face CT 04/23/18 00:00 CONCLUSION: 1. No acute fracture. 2. No soft tissue abnormality. Chest X-Ray 04/23/18 21:13 CONCLUSION: Right central line in superior vena cava. No active disease. Abdomen/Pelvis CT 04/26/18 00:00 CONCLUSION: 1. Essentially negative CT of the abdomen and pelvis. There is a proximal transverse colon appears somewhat thickened but this is likely secondary to lack of distention versus less likely colitis. Bone Marrow Biopsy w/ CT 04/28/18 08:00 CONCLUSION: 1. Uncomplicated CT guided bone marrow aspirate. 2. Uncomplicated CT guided bone marrow biopsy. Physical Exam: PHYSICAL EXAMINATION: GENERAL: No acute distress. Awake and alert and oriented. HEENT: Head atraumatic and normocephalic. Extraocular muscles are intact. Pupils reactive to light. No icterus. No conjunctival erythema. Nose: No drainage. Oropharynx: No exudate at the base of the teeth. No visible lesions. No thrush. NECK: Supple without adenopathy. LUNGS: Clear breath sounds. HEART: Regular S1 and S2. No murmurs. No rubs. No gallops. ABDOMEN: Bowel sounds present, obese, soft. No tenderness. EXTREMITIES: No clubbing, cyanosis or edema. SKIN: No rash. Previous rash completely resolved. NEUROLOGIC: Cranial nerves II-XII intact. PSYCHIATRIC: Calm , Cooperative. Assessment and Plan - Plan IMPRESSION: 1. Neutropenic fever. Cultures negative. Counts beginning to recover. Temperature has improved Cultures are negative. 2. Acute myeloid leukemia. Post chemo induction. 3. Gingivitis improved. 4. Rash has resolved after stopping Cefepime. Patient does not have any significant symptoms. RECOMMENDATIONS: 1. Continue meropenem. 2. Continue vancomycin. 3. Continue acyclovir for possible viral associated gingivitis. 4. Continue micafungin 5. Monitor for signs of infection. 6. Follow clinical status. 7. Stop antibiotics when the absolute neutrophil count is up to 1000. If no subsequent fevers at that time the patient can be discharged from ID standpoint.
[2018-05-08] MEDS: Nystatin/Diphenhydramine/Lidocaine Mouthwash (Adult) 120 ML Botttle SWISH-SWAL SCH ×3 (17:48→20:04)
[2018-05-08] MEDS: Heparin Central Flush 100 UNIT/ML 5 ML Vial IV.FLUSH SCH (17:48)
[2018-05-08] MEDS: Micafungin Inj 150 MG in Sodium Chlor 0.9% Inj 100 ML IV.SIG SCH (18:03)
[2018-05-08] MEDS ORDERED: Vancomycin Inj 1,500 MG in Sodium Chlor 0.9% Inj 500 ML IV.SIG SCH (19:00)
[2018-05-09] MEDS ORDERED: Pharmacy Ordered Lab Info OTHER ONE (01:45)
[2018-05-09] MEDS: Meropenem Inj 2,000 MG in Sodium Chlor 0.9% Inj 100 ML IV.SIG SCH ×3 (04:50→20:39)
[2018-05-09] MEDS: Acyclovir 200 MG Capsule PO SCH ×3 (05:00→23:16)
[2018-05-09 05:27] LABS: Hematocrit 23.3 % (39.0-51.0); Mean Corpuscular HGB Conc 34.3 % (32.0-36.0); Mean Corpuscular Volume 84.5 fL (80.0-100.0); Mean Platelet Volume 8.5 fL (7.0-11.0); Platelet Count 103 th/mm3 (150-450); Red Blood Count 2.76 mil/mm3 (4.50-5.90); Red Cell Distribution Width 13.9 % (11.6-17.2); White Blood Count 0.8 th/mm3 (4.0-11.0)
[2018-05-09 05:49] LABS: Anion Gap 9 meq/L (5-15); Blood Urea Nitrogen 3 mg/dL (7-18); Calcium 8.6 mg/dL (8.5-10.1); Carbon Dioxide 29.4 meq/L (21.0-32.0); Chloride 97 meq/L (98-107); Glomerular Filtration Rate Greater Than 89 mL/min (>89); Glucose,Random 97 mg/dL (74-106); Sodium 135 meq/L (136-145)
[2018-05-09] MEDS: Vancomycin Inj 1,500 MG in Sodium Chlor 0.9% Inj 500 ML IV.SIG SCH ×3 (06:00→20:38)
[2018-05-09 07:51] LABS: Lymphocytes 30 % (9-44); Toxic Granulation 1+
[2018-05-09 07:52] LABS: Platelet Morphology Normal (Normal)
[2018-05-09] MEDS: Pantoprazole Sodium 20 MG DR Tablet PO SCH (08:16)
[2018-05-09] MEDS: Lactobacillus Acidophilus/L. Spores Tablet PO SCH ×2 (08:16→20:39)
--- NOTE | 2018-05-09 08:22 | P.PNONC ---
Subjective Interval history: Happy with the recovery of his blood counts. Continues to use the Peridex. Come disease still present. Noted low-grade temperature. Denies any abdominal pain. Objective Vital Signs/Intake & Output: Vital Signs 05/08/18 08:42 05/08/18 12:01 05/08/18 16:58 Temperature 99.7 F H 99.2 F 99.2 F Pulse Rate 101 H 100 H 100 H Respiratory Rate 18 20 20 Blood Pressure 104/65 116/75 109/51 L Pulse Oximetry 98 98 05/08/18 20:00 05/09/18 00:00 05/09/18 04:48 Temperature 99.1 F 99.3 F 99.7 F H Pulse Rate 109 H 101 H 106 H Respiratory Rate 18 18 16 Blood Pressure 112/52 L 116/70 107/64 Pulse Oximetry 96 98 98 05/09/18 08:04 Temperature 98.2 F Pulse Rate 94 H Respiratory Rate 20 Blood Pressure 114/71 Pulse Oximetry 98 Intake & Output 05/08/18 05/09/18 05/09/18 18:59 06:59 18:59 Intake Total 2575 / 2575 1295 / 1295 Output Total 3200 / 3200 1050 / 1050 Balance -625 / -625 245 / 245 Weight 105.3 kg Intake: IV 615 / 615 815 / 815 Merrem Inj 2,000 MG In NS Inj 100 / 100 200 / 200 100 ML @ 200 mls/hr IV.SIG Q8H [facility] Rx#:[id number] Mycamine Inj 150 MG In NS Inj 100 / 100 100 ML @ 100 mls/hr IV.SIG Q24H [facility] Rx#:[id number] Vancomycin Inj 1,500 MG In NS 515 / 515 515 / 515 Inj 500 ML @ 250 mls/hr IV.SIG Q8H [facility] Rx#:[id number] Oral 1960 / 1960 480 / 480 Output: Urine 3200 / 3200 1050 / 1050 Result Diagrams: 05/09/18 04:50 05/09/18 04:50 Laboratory Results: Laboratory Results - last 24 hr 05/09/18 05/09/18 05/09/18 04:50 04:50 04:50 WBC 0.8 L RBC 2.76 L Hgb 8.0 L Hct 23.3 L MCV 84.5 MCH 29.0 MCHC 34.3 RDW 13.9 Plt Count 103 L D MPV 8.5 Prelim Diff (Auto) Manual diff required WBC Differential Manual diff final Seg Neuts % (Manual) 65 Band Neuts % (Manual) 5 Lymphocytes % (Manual) 30 Abs Neuts (Manual) 0.6 L Differential Comment . Toxic Granulation 1+ H Platelet Estimate Low L Platelet Morphology Normal Sodium 135 L Potassium 4.0 Chloride 97 L Carbon Dioxide 29.4 Anion Gap 9 BUN 3 L Creatinine 0.62 Estimated GFR Greater than 89 Random Glucose 97 Calcium 8.6 Vancomycin Trough 18.2 H Culture Results: Microbiology 05/04/18 23:53 Aerobic Blood Culture - Preliminary Blood - Peripheral No growth in 3 days Anaerobic Blood Culture - Preliminary No growth in 3 days 05/04/18 23:20 Aerobic Blood Culture - Preliminary Blood - Line No growth in 4 days Anaerobic Blood Culture - Preliminary No growth in 4 days Medications: Active Medications Generic Name Dose Route Start Last Admin Trade Name Freq PRN Reason Stop Dose Admin Acetaminophen 650 mg 05/01/18 13:55 05/01/18 14:07 Tylenol PO 650 mg Q4H PRN Administration BLOOD PRODUCT TRANSFUSION Hydrocodone Bitart/Acetaminophen 1 tab 04/23/18 11:51 04/28/18 19:45 [place] 7.5/325 PO 1 tab Q6H PRN Administration PAIN SCALE 6 TO 10 Acyclovir 400 mg 04/24/18 22:00 05/09/18 05:00 Zovirax PO 400 mg Q8HR [facility] Administration Chlorhexidine Gluconate 15 ml 04/23/18 21:00 05/08/18 20:04 Peridex 0.12% Liq SWISH-SPIT Not Given BID [facility] Diphenhydramine HCl 25 mg 05/01/18 13:54 05/04/18 09:56 Benadryl PO 25 mg Q4H PRN Administration BLOOD PRODUCT TRANSFUSION Heparin Sodium (Porcine) 0 unit 04/16/18 00:00 04/26/18 00:44 Heparin Central Flush IV.FLUSH 200 unit PRN PRN Administration Flush each lumen Heparin Sodium (Porcine) 0 unit 04/16/18 09:00 05/08/18 17:48 Heparin Central Flush IV.FLUSH Not Given DAILY [facility] Vancomycin HCl 1,500 mg/ 515 mls @ 250 mls/hr 05/08/18 20:00 05/09/18 06:00 Sodium Chloride IV.SIG 250 mls/hr Q8H [facility] Administration Micafungin Sodium 150 mg/ 100 mls @ 100 mls/hr 04/30/18 18:00 05/08/18 19:10 Sodium Chloride IV.SIG Infused Q24H [facility] Infusion Meropenem 2,000 mg/ Sodium 100 mls @ 200 mls/hr 05/06/18 20:00 05/09/18 05:48 Chloride IV.SIG Infused Q8H [facility] Infusion Lactobacillus Acidophilus 1 tab 05/06/18 21:00 05/09/18 08:16 Lactinex PO 1 tab BID [facility] Administration Lidocaine HCl 15 ml 04/23/18 10:00 05/03/18 14:07 Xylocaine 2% Viscous SWISH-SPIT 15 ml Q4H PRN Administration PAIN SCALE 6 TO 10 Miscellaneous Information 1 each 04/16/18 00:00 04/16/18 13:22 Mis Nursing Information OTHER Not Given [id number] [facility] Morphine Sulfate 2 mg 04/16/18 00:00 04/23/18 12:56 Morphine Inj IV.PUSH 2 mg Q2H PRN Administration PAIN SCALE 6 TO 10 Multivitamins 1 tab 05/03/18 09:00 05/09/18 08:16 Theragran PO 1 tab DAILY [facility] Administration Nystatin 5 ml 05/05/18 13:00 05/08/18 20:04 Mycostatin Liq SWISH-SWAL Not Given QID [facility] Ondansetron HCl 4 mg 04/16/18 00:00 04/23/18 10:26 Zofran Inj IV.PUSH 4 mg Q6H PRN Administration NAUSEA OR VOMITING Pantoprazole Sodium 20 mg 05/03/18 09:00 05/09/18 08:16 Protonix PO 20 mg DAILY [facility] Administration Prochlorperazine Edisylate 5 mg 04/26/18 08:51 05/03/18 04:26 Compazine Inj IV.PUSH 5 mg Q6H PRN Administration MILD NAUSEA Sodium Chloride 0 ml 04/16/18 09:00 05/08/18 17:48 Ns Flush IV.FLUSH Not Given DAILY [facility] Sodium Chloride 0 ml 04/16/18 00:00 04/27/18 09:15 Ns Flush IV.FLUSH 5 ml PRN PRN Administration FLUSH AFTER USING IV ACCESS Temazepam 15 mg 04/23/18 21:00 04/30/18 23:14 Restoril PO 15 mg HS PRN Administration INSOMNIA Objective Remarks: GENERAL: Well-nourished, well-developed patient. SKIN: Warm and dry. Rash resolved. Postinflammatory hyperpigmented patches on axilla. Petechia resolved. HEAD: Normocephalic. EYES: No scleral icterus. No injection or drainage. NECK: Supple, trachea midline. No JVD or lymphadenopathy. LYMPHATIC: No adenopathy. CARDIOVASCULAR: Regular rate and rhythm without murmurs. RESPIRATORY: Breath sounds equal bilaterally. No accessory muscle use. GASTROINTESTINAL: Abdomen soft, non-tender, nondistended. EXTREMITIES: No cyanosis, or edema. MUSCULOSKELETAL: Adequate muscle tone. NEUROLOGICAL: No obvious focal deficit. Awake, alert, and oriented x3. PSYCHIATRIC: Appropriate mood and affect; insight and judgment normal. Assessment/Plan - Plan 04/15 D1 Daunorubicin + Cytarabine 04/16: D2 Daunorubicin + Cytarabine 04/17: D3 Daunorubicin + Cytarabine 04/18: D4 Cytarabine. Afebrile. Tolerating chemo well. 04/19: D5 Cytarabine continue 04/20: D6 Cytarabine continues. 04/21: D7 Cytarabine continues. Afebrile, tolerating well. 04/22: D8 cytarabine. Afebrile, platelet transfusion this a.m. Now with jaw pain. 04/23: D9 Cytarabine completed overnight. Afebrile. Continued jaw pain. Diarrhea 3 x's/day, +n/v x's 1, + insomnia. 04/24: D10 febrile, T-max 102. Blood cultures pending. Currently on cefepime. ID and ENT consult. 04/25: D11 febrile, T-max 102.5F. Blood cultures no growth 2 days. Antibiotics per ID. ENT deferred consult to oral maxillofacial surgery. 04/28: D14 febrile, T-max 100.6F. Blood cultures no growth and 4 days. Current cultures pending. Day 14 bone marrow biopsy scheduled for today. 04/29: D15 febrile, T-max 101.6F. Blood cultures with no growth. Bone marrow biopsy completed yesterday, patient tolerated well. Results pending. 04/30: D16 febrile, T-max 102.1 F. Blood cultures continue with no growth. Bone marrow biopsy pending. 05/01: D17 febrile, T-max 102.1F. Blood cultures continue with no growth. Bone marrow biopsy resulted, pending review with pathology. 05/02: D18 febrile, T-max 102.3F. Blood cultures with no growth. 05/05: D21 febrile, T-max 103.2F. Blood cultures with no growth. 05/06: D2 T-max 100.1F. Blood cultures with no growth. Continues on antibiotics per ID. 05/07: D23 afebrile. Blood cultures with no growth. Pancytopenia improving. 05/08: D2 afebrile. Blood cultures with no growth. Hgb 8.3, Platelets 68k, Abs [place] 300. 1. Neutropenic fever, resolved x's 3 days. Continue neutropenic precaution until neutrophils recover. Low-grade temperature continues. As per infectious disease plan continue antibiotic until ANC greater than 1000. 2. Anemia and thrombocytopenia, recovery continues. There is no signs of bleeding. 3. Swollen gums, erosive gingivitis-no change. Continue mouth care with Peridex. Patient with pending dental appointment, upon discharge. 4. Hypokalemia. Resolved. Klor-Guille DC'd. 5. Anticipate prompt recovery of platelets. Increased risk for venous thromboembolic event. DVT prophylaxis with Lovenox initiated. 6. Continue supportive care. 7. Case management consulted for discharge planning. Patient will need Leal care. He will need follow-up regional oncology next week. 8. Lorazepam switch to p.o. as needed anxiety and sleep. 9. Temazepam still available for as needed sleep.
[2018-05-09] MEDS: Nystatin Liq 500,000 UNIT/5 ML UDC SWISH-SWAL SCH ×3 (08:54→17:05)
[2018-05-09] MEDS: Enoxaparin Inj 40 MG/0.4 ML Syringe SQ SCH (09:02)
[2018-05-09] MEDS: Heparin Central Flush 100 UNIT/ML 5 ML Vial IV.FLUSH SCH (09:02)
[2018-05-09] MEDS: Chlorhexidine Gluconate 0.12% Liq 15 ML UDC SWISH-SPIT SCH ×2 (09:06→20:39)
--- NOTE | 2018-05-09 13:22 | P.PN ---
Physical Exam Vital signs: Vital Signs 05/08/18 16:58 05/08/18 20:00 05/09/18 00:00 Temperature 99.2 F 99.1 F 99.3 F Pulse Rate 100 H 109 H 101 H Respiratory Rate 20 18 18 Blood Pressure 109/51 L 112/52 L 116/70 Pulse Oximetry 96 98 05/09/18 04:48 05/09/18 08:04 05/09/18 11:26 Temperature 99.7 F H 98.2 F 99.5 F Pulse Rate 106 H 94 H 105 H Respiratory Rate 16 18 Blood Pressure 107/64 114/71 119/67 Pulse Oximetry 98 98 99 Intake & Output 05/08/18 05/09/18 05/09/18 18:59 06:59 18:59 Intake Total 2575 / 2575 1295 / 1295 615 / 615 Output Total 3200 / 3200 1050 / 1050 Balance -625 / -625 245 / 245 615 / 615 Weight 105.3 kg Intake: IV 615 / 615 815 / 815 615 / 615 Merrem Inj 2,000 MG In NS Inj 100 / 100 200 / 200 100 / 100 100 ML @ 200 mls/hr IV.SIG Q8H [facility] Rx#:[id number] Mycamine Inj 150 MG In NS Inj 100 / 100 100 ML @ 100 mls/hr IV.SIG Q24H [facility] Rx#:[id number] Vancomycin Inj 1,500 MG In NS 515 / 515 515 / 515 515 / 515 Inj 500 ML @ 250 mls/hr IV.SIG Q8H [facility] Rx#:[id number] Oral 1960 / 1960 480 / 480 Output: Urine 3200 / 3200 1050 / 1050 Other: Date of Last Bowel Movement 05/06/18 Narrative: Subjective Interval history: Ambulating in the hallways feels much better. No nausea or vomiting. Eating well no more diarrhea. No fever or chills. Physical Exam GENERAL: Young male, appears in nad. HEENT: Shaved head and alopecia. NECK: Supple no tender LAD or JVD. HEART: RRR no m/r/g. LUNGS: CTAB , wheezes or crackles. ABDOMEN: +BS, soft, NT, ND. EXTREMITIES: No LE edema. NEURO: Awake and alert. PSYCH: Appropriate mood and affect. Assessment and Plan 27 YOWM admitted 04/12/2018 due to generalized weakness. His hemoglobin was 3.3 and platelets 30k on admission. Hematology was consulted, and patient was ultimately diagnosed with AML and has undergone induction chemotherapy. His course has been complicated by neutropenic fever with persistent spikes in temperature. 1. Acute myeloid leukemia with pancytopenia - Confirmed with BM biopsy 04/13 - Heme/onc consulted and ff, completed nine days of induction chemo ( daunorubicin + cytarabine x 3 days followed by 6 days of cytarabine) - Per oncology: transfuse if Hb<7.0 or PLT<15K - Hb 7.2 this AM, platelets 15K - Transfused 1 unit of platelets and 1 units RBCs - Continue to monitor CBC closely - 04/28 bone marrow biopsy performed, flow cytometry consistent with residual AML 2. Neutropenic fever -Has been afebrile since yesterday morning - White count continues to be extremely low and patient pancytopenic - U/A and CXR unremarkable from 04/23 - Multiple blood cultures have been negative to date - ID following - On Cefepime, vancomycin, and acyclovir - No specific nidus of infection at this time -Blood cultures are negative to date - Continue to closely monitor 3. Diarrhea - Continue to have loose stool - C. diff PCR negative 4. Jaw pain - CT with no evidence of necrosis or other pathology 5. Mucositis - Continue Diflucan and Nystatin S&S 6. History of seizure - Seizure precautions 7. Hypokalemia - Potassium continues to be low but improved from prior days - Mg WNL - Increase to KCl PO 40 BID - Continue to monitor closely 8. Decreased appetite with hypokalemia/ Replace K and monitor. Check mag as well and replace. Add MVT DVT prophylaxis: SCDs, encourage ambulation. Chemical anticoagulation C/I given severe thrombocytopenia Discharge Planning: neutropenic precautions Discussed with the patient, nurse Improving DC plan: poss DC next week, when cleared by hematology oncology Results - Labs CBC & Chem 7: 05/09/18 04:50 05/09/18 04:50 Laboratory Results - last 24 hr 05/09/18 05/09/18 05/09/18 04:50 04:50 04:50 WBC 0.8 L RBC 2.76 L Hgb 8.0 L Hct 23.3 L MCV 84.5 MCH 29.0 MCHC 34.3 RDW 13.9 Plt Count 103 L D MPV 8.5 Prelim Diff (Auto) Manual diff required WBC Differential Manual diff final Seg Neuts % (Manual) 65 Band Neuts % (Manual) 5 Lymphocytes % (Manual) 30 Abs Neuts (Manual) 0.6 L Differential Comment . Toxic Granulation 1+ H Platelet Estimate Low L Platelet Morphology Normal Sodium 135 L Potassium 4.0 Chloride 97 L Carbon Dioxide 29.4 Anion Gap 9 BUN 3 L Creatinine 0.62 Estimated GFR Greater than 89 Random Glucose 97 Calcium 8.6 Total Bilirubin Direct Bilirubin Indirect Bilirubin Lactate Dehydrogenase Vancomycin Trough 18.2 H 05/09/18 04:50 WBC RBC Hgb Hct MCV MCH MCHC RDW Plt Count MPV Prelim Diff (Auto) WBC Differential Seg Neuts % (Manual) Band Neuts % (Manual) Lymphocytes % (Manual) Abs Neuts (Manual) Differential Comment Toxic Granulation Platelet Estimate Platelet Morphology Sodium Potassium Chloride Carbon Dioxide Anion Gap BUN Creatinine Estimated GFR Random Glucose Calcium Total Bilirubin 0.7 Direct Bilirubin 0.5 H Indirect Bilirubin 0.2 Lactate Dehydrogenase 167 Vancomycin Trough Microbiology 05/04/18 23:53 Blood - Peripheral Aerobic Blood Culture - Preliminary No growth in 4 days 05/04/18 23:53 Blood - Peripheral Anaerobic Blood Culture - Preliminary No growth in 4 days 05/04/18 23:20 Blood - Line Aerobic Blood Culture - Final No growth in 5 days 05/04/18 23:20 Blood - Line Anaerobic Blood Culture - Final No growth in 5 days - Procedures BM biopsy Leal catheter placement Echo 04/14/2018 The left ventricular systolic function is hyperdynamic with an estimated ejection fraction in the range of 65- 70%. Normal left ventricular size. Wall thickness is normal. No regional wall motion abnormalities are present. Trace mitral valve regurgitation. The left ventricular systolic function is hyperdynamic with an estimated ejection fraction in the range of 65- 70%. Normal left ventricular size. Wall thickness is normal. No regional wall motion abnormalities are present. Trace mitral valve regurgitation. The estimated pulmonary arterial pressure is 30.6 mmHg. BM BIOPSY 04-28 Assessment and Plan - Assessment (1) AML (acute myeloid leukemia) Code(s): C92.00 - Acute myeloblastic leukemia, not having achieved remission Status: Acute (2) Pancytopenia Code(s): D61.818 - Other pancytopenia Status: Acute (1) AML (acute myeloid leukemia) Qualifiers: Leukemia Active/Remission status: without remission Qualified Code(s): C92.00 - Acute myeloblastic leukemia, not having achieved remission
[2018-05-09] MEDS: Micafungin Inj 150 MG in Sodium Chlor 0.9% Inj 100 ML IV.SIG SCH (17:02)
[2018-05-10] MEDS: Temazepam 15 MG Capsule PO PRN (00:06)
[2018-05-10] MEDS: LORazepam 0.5 MG Tablet PO PRN (00:18)
[2018-05-10] MEDS: Meropenem Inj 2,000 MG in Sodium Chlor 0.9% Inj 100 ML IV.SIG SCH ×3 (03:48→20:04)
[2018-05-10] MEDS: Acyclovir 200 MG Capsule PO SCH ×3 (05:12→21:53)
[2018-05-10] MEDS: Vancomycin Inj 1,500 MG in Sodium Chlor 0.9% Inj 500 ML IV.SIG SCH ×3 (05:12→20:05)
[2018-05-10 05:29] LABS: Baso % (Auto) 0.5 % (0.0-2.0); Eos % (Auto) 0.1 % (0.0-4.0); Hematocrit 22.1 % (39.0-51.0); Hemoglobin 7.7 gm/dL (13.0-17.0); Lymph # (Auto) 0.2 th/mm3 (1.0-4.8); Lymph % (Auto) 22.7 % (9.0-44.0); Mean Corpuscular HGB Conc 34.9 % (32.0-36.0); Mean Corpuscular Hemoglobin 29.2 pg (27.0-34.0); Mean Corpuscular Volume 83.6 fL (80.0-100.0); Mean Platelet Volume 8.5 fL (7.0-11.0); Mono % (Auto) 2.7 % (0.0-8.0); Neut # (Auto) 0.6 th/mm3 (1.8-7.7); Platelet Count 138 th/mm3 (150-450); Red Blood Count 2.65 mil/mm3 (4.50-5.90); White Blood Count 0.8 th/mm3 (4.0-11.0)
[2018-05-10 07:58] LABS: Lymphocytes 20 % (9-44); Metamyelocytes 3 % (0-1); Toxic Granulation 2+
[2018-05-10 07:59] LABS: Platelet Morphology Normal (Normal)
[2018-05-10] MEDS: Nystatin Liq 500,000 UNIT/5 ML UDC SWISH-SWAL SCH ×4 (08:30→20:07)
[2018-05-10] MEDS: Pantoprazole Sodium 20 MG DR Tablet PO SCH (08:31)
[2018-05-10] MEDS: Chlorhexidine Gluconate 0.12% Liq 15 ML UDC SWISH-SPIT SCH ×2 (08:31→20:07)
[2018-05-10] MEDS: Lactobacillus Acidophilus/L. Spores Tablet PO SCH ×2 (08:31→20:09)
[2018-05-10] MEDS: Enoxaparin Inj 40 MG/0.4 ML Syringe SQ SCH (08:32)
--- NOTE | 2018-05-10 12:43 | P.PNONC ---
Subjective Interval history: Appears despondent, but denies any new complaint. Gum swelling still present but the gum swelling towards the back of the teeth has improved. Still neutropenic With low-grade temperature no other localizing focus of infection. Objective Vital Signs/Intake & Output: Vital Signs 05/09/18 15:21 05/09/18 20:00 05/10/18 00:00 Temperature 99.4 F 99.6 F 99.8 F H Pulse Rate 110 H 107 H 96 H Respiratory Rate 18 18 18 Blood Pressure 100/68 98/54 L 110/58 L Pulse Oximetry 96 98 98 05/10/18 04:00 05/10/18 07:18 05/10/18 11:29 Temperature 99.4 F 99.4 F 98.3 F Pulse Rate 104 H 93 H 99 H Respiratory Rate 18 18 18 Blood Pressure 107/70 115/67 116/71 Pulse Oximetry 98 97 100 Intake & Output 05/09/18 05/10/18 05/10/18 18:59 06:59 18:59 Intake Total 3080 / 3080 1710 / 1710 Output Total 1000 / 1000 2500 / 2500 Balance 2080 / 2080 -790 / -790 Weight 105.4 kg Intake: IV 1130 / 1130 1230 / 1230 Merrem Inj 2,000 MG In NS Inj 100 / 100 200 / 200 100 ML @ 200 mls/hr IV.SIG Q8H [facility] Rx#:[id number] Vancomycin Inj 1,500 MG In NS 1030 / 1030 1030 / 1030 Inj 500 ML @ 250 mls/hr IV.SIG Q8H [facility] Rx#:[id number] Oral 1950 / 1950 480 / 480 Output: Urine 1000 / 1000 2500 / 2500 Other: Date of Last Bowel Movement 05/09/18 05/09/18 05/09/18 # Bowel Movements 2 Result Diagrams: 05/10/18 03:50 05/09/18 04:50 Laboratory Results: Laboratory Results - last 24 hr 04/28/18 05/10/18 11:00 03:50 WBC 0.8 L RBC 2.65 L Hgb 7.7 L Hct 22.1 L MCV 83.6 MCH 29.2 MCHC 34.9 RDW 14.0 Plt Count 138 L D MPV 8.5 Prelim Diff (Auto) Slide review pending Neut % (Auto) 74.0 H Lymph % (Auto) 22.7 [place] % (Auto) 2.7 Eos % (Auto) 0.1 Baso % (Auto) 0.5 Neut # (Auto) 0.6 L Lymph # (Auto) 0.2 L [place] # (Auto) 0.0 Eos # (Auto) 0.0 Baso # (Auto) 0.0 WBC Differential Manual diff final Seg Neuts % (Manual) 63 Band Neuts % (Manual) 13 H Lymphocytes % (Manual) 20 Metamyelocytes % (Man) 3 H Abs Neuts (Manual) 0.6 L Differential Comment . Toxic Granulation 2+ H Platelet Estimate Low L Platelet Morphology Normal BM Chromosome Interp Culture Results: Microbiology 05/04/18 23:53 Aerobic Blood Culture - Final Blood - Peripheral No growth in 5 days Anaerobic Blood Culture - Final No growth in 5 days 05/04/18 23:20 Aerobic Blood Culture - Final Blood - Line No growth in 5 days Anaerobic Blood Culture - Final No growth in 5 days Medications: Active Medications Generic Name Dose Route Start Last Admin Trade Name Freq PRN Reason Stop Dose Admin Acetaminophen 650 mg 05/01/18 13:55 05/01/18 14:07 Tylenol PO 650 mg Q4H PRN Administration BLOOD PRODUCT TRANSFUSION Hydrocodone Bitart/Acetaminophen 1 tab 04/23/18 11:51 04/28/18 19:45 [place] 7.5/325 PO 1 tab Q6H PRN Administration PAIN SCALE 6 TO 10 Acyclovir 400 mg 04/24/18 22:00 05/10/18 05:12 Zovirax PO 400 mg Q8HR [facility] Administration Chlorhexidine Gluconate 15 ml 04/23/18 21:00 05/10/18 08:31 Peridex 0.12% Liq SWISH-SPIT 15 ml BID [facility] Administration Diphenhydramine HCl 25 mg 05/01/18 13:54 05/04/18 09:56 Benadryl PO 25 mg Q4H PRN Administration BLOOD PRODUCT TRANSFUSION Enoxaparin Sodium 40 mg 05/09/18 09:00 05/10/18 08:32 Lovenox Inj SQ 40 mg DAILY [facility] Administration Heparin Sodium (Porcine) 0 unit 04/16/18 00:00 04/26/18 00:44 Heparin Central Flush IV.FLUSH 200 unit PRN PRN Administration Flush each lumen Heparin Sodium (Porcine) 0 unit 04/16/18 09:00 05/09/18 09:02 Heparin Central Flush IV.FLUSH 500 unit DAILY [facility] Administration Vancomycin HCl 1,500 mg/ 515 mls @ 250 mls/hr 05/08/18 20:00 05/10/18 12:13 Sodium Chloride IV.SIG 250 mls/hr Q8H [facility] Administration Micafungin Sodium 150 mg/ 100 mls @ 100 mls/hr 04/30/18 18:00 05/09/18 17:02 Sodium Chloride IV.SIG 100 mls/hr Q24H [facility] Administration Meropenem 2,000 mg/ Sodium 100 mls @ 200 mls/hr 05/06/18 20:00 05/10/18 12:09 Chloride IV.SIG 200 mls/hr Q8H [facility] Administration Lactobacillus Acidophilus 1 tab 05/06/18 21:00 05/10/18 08:31 Lactinex PO 1 tab BID [facility] Administration Lidocaine HCl 15 ml 04/23/18 10:00 05/03/18 14:07 Xylocaine 2% Viscous SWISH-SPIT 15 ml Q4H PRN Administration PAIN SCALE 6 TO 10 Lorazepam 0.5 mg 05/09/18 08:16 05/10/18 00:18 Ativan PO 0.5 mg Q6H PRN Administration ANXIETY Miscellaneous Information 1 each 04/16/18 00:00 04/16/18 13:22 Misc Nursing Information OTHER Not Given [id number] [facility] Morphine Sulfate 2 mg 04/16/18 00:00 04/23/18 12:56 Morphine Inj IV.PUSH 2 mg Q2H PRN Administration PAIN SCALE 6 TO 10 Multivitamins 1 tab 05/03/18 09:00 05/10/18 08:31 Theragran PO 1 tab DAILY [facility] Administration Nystatin 5 ml 05/05/18 13:00 05/09/18 17:05 Mycostatin Liq SWISH-SWAL Not Given QID [facility] Ondansetron HCl 4 mg 04/16/18 00:00 04/23/18 10:26 Zofran Inj IV.PUSH 4 mg Q6H PRN Administration NAUSEA OR VOMITING Pantoprazole Sodium 20 mg 05/03/18 09:00 05/10/18 08:31 Protonix PO 20 mg DAILY [facility] Administration Prochlorperazine Edisylate 5 mg 04/26/18 08:51 05/03/18 04:26 Compazine Inj IV.PUSH 5 mg Q6H PRN Administration MILD NAUSEA Sodium Chloride 0 ml 04/16/18 09:00 05/10/18 08:34 Ns Flush IV.FLUSH 2 ml DAILY [facility] Administration Sodium Chloride 0 ml 04/16/18 00:00 04/27/18 09:15 Ns Flush IV.FLUSH 5 ml PRN PRN Administration FLUSH AFTER USING IV ACCESS Objective Remarks: GENERAL: Well-nourished, heavyset, well-developed patient. SKIN: Warm and dry. Rash resolved, postinflammatory hyperpigmented changes over back and axilla. HEAD: Normocephalic. Gingivitis still present. No bleeding. EYES: No scleral icterus. No injection or drainage. NECK: Supple, trachea midline. No JVD or lymphadenopathy. LYMPHATIC: No adenopathy. CARDIOVASCULAR: Regular rate and rhythm without murmurs. RESPIRATORY: Breath sounds equal bilaterally. No accessory muscle use. GASTROINTESTINAL: Abdomen soft, non-tender, nondistended. EXTREMITIES: No cyanosis, or edema. MUSCULOSKELETAL: Adequate muscle tone. NEUROLOGICAL: No obvious focal deficit. Awake, alert, and oriented x3. PSYCHIATRIC: Appropriate mood and affect; insight and judgment normal. Assessment/Plan - Plan 04/15 D1 Daunorubicin + Cytarabine 04/16: D2 Daunorubicin + Cytarabine 72: D3 Daunorubicin + Cytarabine 04/18: D4 Cytarabine. Afebrile. Tolerating chemo well. 04/19: D5 Cytarabine continue 04/20: D6 Cytarabine continues. 04/21: D7 Cytarabine continues. Afebrile, tolerating well. 04/22: D8 cytarabine. Afebrile, platelet transfusion this a.m. Now with jaw pain. 04/23: D9 Cytarabine completed overnight. Afebrile. Continued jaw pain. Diarrhea 3 x's/day, +n/v x's 1, + insomnia. 04/24: D10 febrile, T-max 102. Blood cultures pending. Currently on cefepime. ID and ENT consult. 04/25: D11 febrile, T-max 102.5F. Blood cultures no growth 2 days. Antibiotics per ID. ENT deferred consult to oral maxillofacial surgery. 04/28: D14 febrile, T-max 100.6F. Blood cultures no growth and 4 days. Current cultures pending. Day 14 bone marrow biopsy scheduled for today. 04/29: D15 febrile, T-max 101.6F. Blood cultures with no growth. Bone marrow biopsy completed yesterday, patient tolerated well. Results pending. 04/30: D16 febrile, T-max 102.1 F. Blood cultures continue with no growth. Bone marrow biopsy pending. 05/01: D17 febrile, T-max 102.1F. Blood cultures continue with no growth. Bone marrow biopsy resulted, pending review with pathology. 05/02: D18 febrile, T-max 102.3F. Blood cultures with no growth. 05/05: D21 febrile, T-max 103.2F. Blood cultures with no growth. 05/06: D2 T-max 100.1F. Blood cultures with no growth. Continues on antibiotics per ID. 05/07: D23 afebrile. Blood cultures with no growth. Pancytopenia improving. 05/08: D24 afebrile. Blood cultures with no growth. Hgb 8.3, Platelets 68k, Abs [place] 300. 1. Neutropenic fever, resolved x's 3 days. Continue neutropenic precaution until neutrophils recover. Low-grade temperature continues. Antibiotic therapy continue. Suspect delayed recovery due to gingivitis and persistent gum pathology. 2. Anemia and thrombocytopenia. Platelet recovery continues. Still anemic but no transfusions needed. 3. Swollen gums, erosive gingivitis-no change. Continue mouth care with Peridex. Patient with pending dental appointment, upon discharge. 4. Complaints of lack of sleep. Temazepam does not work. Complains that lorazepam p.o. does not work as quickly as IV. We discussed the mechanism of action of Lorazepam. Lorazepam is not a sleep medication. It is currently offered for anxiety and nausea as adjunctive therapy. We discussed a trial of Valium for sleep. We discussed taking care not to take Valium and lorazepam together. 5. Anticipate prompt recovery of platelets. Increased risk for venous thromboembolic event. DVT prophylaxis with Lovenox initiated. 6. Continue supportive care. 7. Case management consulted for discharge planning. Patient has acute myeloid leukemia, a life-threatening condition. The treatment is all consuming and does not allow him to return to regular work. He is disabled and unable to return to his work. He will need consolidation chemotherapy that will render him incapacitated weeks at a time due to prolonged neutropenia and need for continued support including repeat hospitalization. Furthermore he will need consultation with transplant center. He has a high risk disease that would benefit from a consultation with transplant, allogeneic for consolidation. Recommend continued application for disability and Medicaid. 8. Lorazepam switch to p.o. as needed anxiety and sleep.
--- NOTE | 2018-05-10 14:23 | P.PN ---
Physical Exam Vital signs: Vital Signs 05/09/18 15:21 05/09/18 20:00 05/10/18 00:00 Temperature 99.4 F 99.6 F 99.8 F H Pulse Rate 110 H 107 H 96 H Respiratory Rate 18 Blood Pressure 100/68 98/54 L 110/58 L Pulse Oximetry 96 98 98 05/10/18 04:00 05/10/18 07:18 05/10/18 11:29 Temperature 99.4 F 99.4 F 98.3 F Pulse Rate 104 H 93 H 99 H Respiratory Rate Blood Pressure 107/70 115/67 116/71 Pulse Oximetry 98 97 100 Intake & Output 05/09/18 05/10/18 05/10/18 18:59 06:59 18:59 Intake Total 3080 / 3080 1710 / 1710 500 / 500 Output Total 1000 / 1000 2500 / 2500 Balance 2080 / 2080 -790 / -790 500 / 500 Weight 105.4 kg Intake: IV 1130 / 1130 1230 / 1230 100 / 100 Merrem Inj 2,000 MG In NS Inj 100 / 100 200 / 200 100 / 100 100 ML @ 200 mls/hr IV.SIG Q8H [facility] Rx#:[id number] Vancomycin Inj 1,500 MG In NS 1030 / 1030 1030 / 1030 Inj 500 ML @ 250 mls/hr IV.SIG Q8H [facility] Rx#:[id number] Oral 1950 / 1950 480 / 480 400 / 400 Output: Urine 1000 / 1000 2500 / 2500 Other: Date of Last Bowel Movement 05/09/18 05/09/18 05/09/18 # Bowel Movements 2 Narrative: Subjective Interval history: The patient is in bed he is sleepy at this time. However says she is able to eat no more nausea or vomiting no diarrhea or constipation. Has formed stools. No fever or chills. Feels improving and hopes to go home soon. He is however no sleeping much at night. Physical Exam GENERAL: Young male, appears in nad. HEENT: Shaved head and alopecia. NECK: Supple no tender LAD or JVD. HEART: RRR no m/r/g. LUNGS: CTAB , no wheezes or crackles. ABDOMEN: +BS, soft, NT, ND. EXTREMITIES: No LE edema. NEURO: Awake and alert. PSYCH: Appropriate mood and affect. SKIN: No rash. Assessment and Plan 27 YOWM admitted 04/12/2018 due to generalized weakness. His hemoglobin was 3.3 and platelets 30k on admission. Hematology was consulted, and patient was ultimately diagnosed with AML and has undergone induction chemotherapy. His course has been complicated by neutropenic fever with persistent spikes in temperature. 1. Acute myeloid leukemia with pancytopenia - Confirmed with BM biopsy 04/13 - Heme/onc consulted and ff, completed nine days of induction chemo ( daunorubicin + cytarabine x 3 days followed by 6 days of cytarabine) - Per oncology: transfuse if Hb<7.0 or PLT<15K - Hb and platelets so far stable no need for transfusion at this time. Monitor and transfuse oer hem/onc indications - Transfused 1 unit of platelets and 1 units RBCs - Continue to monitor CBC closely - 04/28 bone marrow biopsy performed, flow cytometry consistent with residual AML Hem /onc following, patient is a candidate for BM transplant. cM consulted and ff for disability application. 2. Neutropenic fever -Has been afebrile so far - White count continues to be extremely low and patient pancytopenic - U/A and CXR unremarkable from 04/23 - Multiple blood cultures have been negative to date - ID following - Received Meropenem, vancomycin, and acyclovir, adjust per ID. Cefepime DCd as patient had rash. Stop antibiotics when the absolute neutrophil count is up to 1000 per ID recommendations. - No specific nidus of infection at this time -Blood cultures are negative to date - Continue to closely monitor 3. Diarrhea - Continue to have loose stool - C. diff PCR negative 4. Jaw pain - CT with no evidence of necrosis or other pathology 5. Mucositis - Continue Diflucan and Nystatin S&S - continue peridex . To follow up with dentist as OP 6. History of seizure - Seizure precautions 7. Hypokalemia - Potassium continues to be low but improved from prior days - Mg WNL - Increase to KCl PO 40 BID - Continue to monitor closely 8. Decreased appetite with hypokalemia/ Replace K and monitor. Check mag as well and replace. Add MVT DVT prophylaxis: SCDs, encourage ambulation. Chemical anticoagulation C/I given severe thrombocytopenia Discharge Planning: neutropenic precautions Discussed with the patient, nurse Improving DC plan: poss DC at the end of this week, or early next week, when improved and cleared by hematology oncology and ID CM also ff for DC plan Also patient with life threatening disease requiring eval for BM transplantation , needs disability application, CM ff Results - Labs CBC & Chem 7: 05/10/18 03:50 05/09/18 04:50 Laboratory Results - last 24 hr 04/28/18 05/10/18 11:00 03:50 WBC 0.8 L RBC 2.65 L Hgb 7.7 L Hct 22.1 L MCV 83.6 MCH 29.2 MCHC 34.9 RDW 14.0 Plt Count 138 L D MPV 8.5 Prelim Diff (Auto) Slide review pending Neut % (Auto) 74.0 H Lymph % (Auto) 22.7 [place] % (Auto) 2.7 Eos % (Auto) 0.1 Baso % (Auto) 0.5 Neut # (Auto) 0.6 L Lymph # (Auto) 0.2 L [place] # (Auto) 0.0 Eos # (Auto) 0.0 Baso # (Auto) 0.0 WBC Differential Manual diff final Seg Neuts % (Manual) 63 Band Neuts % (Manual) 13 H Lymphocytes % (Manual) 20 Metamyelocytes % (Man) 3 H Abs Neuts (Manual) 0.6 L Differential Comment . Toxic Granulation 2+ H Platelet Estimate Low L Platelet Morphology Normal BM Chromosome Interp Microbiology 05/04/18 23:53 Blood - Peripheral Aerobic Blood Culture - Final No growth in 5 days 05/04/18 23:53 Blood - Peripheral Anaerobic Blood Culture - Final No growth in 5 days 05/04/18 23:20 Blood - Line Aerobic Blood Culture - Final No growth in 5 days 05/04/18 23:20 Blood - Line Anaerobic Blood Culture - Final No growth in 5 days - Procedures BM biopsy Leal catheter placement Echo 04/14/2018 The left ventricular systolic function is hyperdynamic with an estimated ejection fraction in the range of 65- 70%. Normal left ventricular size. Wall thickness is normal. No regional wall motion abnormalities are present. Trace mitral valve regurgitation. The left ventricular systolic function is hyperdynamic with an estimated ejection fraction in the range of 65- 70%. Normal left ventricular size. Wall thickness is normal. No regional wall motion abnormalities are present. Trace mitral valve regurgitation. The estimated pulmonary arterial pressure is 30.6 mmHg. BM BIOPSY 04-28 Assessment and Plan - Assessment (1) AML (acute myeloid leukemia) Code(s): C92.00 - Acute myeloblastic leukemia, not having achieved remission Status: Acute (2) Pancytopenia Code(s): D61.818 - Other pancytopenia Status: Acute (1) AML (acute myeloid leukemia) Qualifiers: Leukemia Active/Remission status: without remission Qualified Code(s): C92.00 - Acute myeloblastic leukemia, not having achieved remission
[2018-05-10] MEDS: Micafungin Inj 150 MG in Sodium Chlor 0.9% Inj 100 ML IV.SIG SCH (18:29)
[2018-05-10] MEDS: Heparin Central Flush 100 UNIT/ML 5 ML Vial IV.FLUSH SCH (18:30)
[2018-05-10] MEDS ORDERED: diazePAM 2 MG Tablet PO ONE (21:00)
[2018-05-11] MEDS: Acyclovir 200 MG Capsule PO SCH ×3 (05:03→21:56)
[2018-05-11] MEDS: Vancomycin Inj 1,500 MG in Sodium Chlor 0.9% Inj 500 ML IV.SIG SCH ×3 (05:03→21:57)
[2018-05-11] MEDS: Meropenem Inj 2,000 MG in Sodium Chlor 0.9% Inj 100 ML IV.SIG SCH ×3 (05:03→21:56)
[2018-05-11 05:26] LABS: Baso % (Auto) 0.3 % (0.0-2.0); Eos % (Auto) 0.1 % (0.0-4.0); Hematocrit 23.3 % (39.0-51.0); Hemoglobin 8.1 gm/dL (13.0-17.0); Lymph # (Auto) 0.2 th/mm3 (1.0-4.8); Mean Corpuscular HGB Conc 34.6 % (32.0-36.0); Mean Corpuscular Hemoglobin 28.9 pg (27.0-34.0); Mean Corpuscular Volume 83.5 fL (80.0-100.0); Mean Platelet Volume 8.3 fL (7.0-11.0); Mono % (Auto) 2.2 % (0.0-8.0); Neut # (Auto) 0.7 th/mm3 (1.8-7.7); Neut % (Auto) 74.4 % (16.0-70.0); Platelet Count 184 th/mm3 (150-450); Red Blood Count 2.79 mil/mm3 (4.50-5.90); Red Cell Distribution Width 13.7 % (11.6-17.2)
[2018-05-11 05:35] LABS: Glomerular Filtration Rate Greater Than 89 mL/min (>89)
[2018-05-11 07:10] LABS: Lymphocytes 15 % (9-44); Monocytes 8 % (0-8); Tallied Nucleated RBC 2 (0-0)
[2018-05-11 07:11] LABS: Platelet Estimate Normal (Normal); Toxic Granulation 2+
[2018-05-11] MEDS: Chlorhexidine Gluconate 0.12% Liq 15 ML UDC SWISH-SPIT SCH ×2 (08:41→21:56)
[2018-05-11] MEDS: Pantoprazole Sodium 20 MG DR Tablet PO SCH (08:42)
[2018-05-11] MEDS: Lactobacillus Acidophilus/L. Spores Tablet PO SCH ×2 (08:42→21:56)
[2018-05-11] MEDS: Enoxaparin Inj 40 MG/0.4 ML Syringe SQ SCH (08:42)
[2018-05-11] MEDS: Nystatin Liq 500,000 UNIT/5 ML UDC SWISH-SWAL SCH ×4 (08:43→21:57)
[2018-05-11] MEDS: Heparin Central Flush 100 UNIT/ML 5 ML Vial IV.FLUSH SCH (08:43)
--- NOTE | 2018-05-11 09:02 | P.PNONC ---
Subjective Interval history: No complaints. Gums are feeling better daily. Low-grade temperature. Still neutropenic with ANC 800. Objective Vital Signs/Intake & Output: Vital Signs 05/10/18 11:29 05/10/18 15:58 05/10/18 20:00 Temperature 98.3 F 99.2 F 99.2 F Pulse Rate 99 H 109 H 102 H Respiratory Rate 18 16 17 Blood Pressure 116/71 110/79 102/57 L Pulse Oximetry 100 97 05/11/18 00:00 05/11/18 05:04 05/11/18 08:06 Temperature 99.8 F H 100.1 F H 98.3 F Pulse Rate 104 H 101 H 97 H Respiratory Rate 17 16 16 Blood Pressure 118/77 101/51 L 117/75 Pulse Oximetry 100 99 98 Intake & Output 05/10/18 05/11/18 05/11/18 18:59 06:59 18:59 Intake Total 1020 / 1020 1100 / 1100 615 / 615 Output Total 2500 / 2500 Balance 1020 / 1020 -1400 / -1400 615 / 615 Weight 105.2 kg Intake: IV 620 / 620 620 / 620 615 / 615 Merrem Inj 2,000 MG In NS Inj 100 / 100 100 / 100 100 / 100 100 ML @ 200 mls/hr IV.SIG Q8H [facility] Rx#:[id number] Vancomycin Inj 1,500 MG In NS 520 / 520 520 / 520 515 / 515 Inj 500 ML @ 250 mls/hr IV.SIG Q8H [facility] Rx#:[id number] Oral 400 / 400 480 / 480 Output: Urine 2500 / 2500 Other: Date of Last Bowel Movement 05/09/18 05/09/18 Result Diagrams: 05/11/18 05:00 05/11/18 05:00 Laboratory Results: Laboratory Results - last 24 hr 05/11/18 05/11/18 05:00 05:00 WBC 1.0 L RBC 2.79 L Hgb 8.1 L Hct 23.3 L MCV 83.5 MCH 28.9 MCHC 34.6 RDW 13.7 Plt Count 184 D MPV 8.3 Prelim Diff (Auto) Slide review pending Neut % (Auto) 74.4 H Lymph % (Auto) 23.0 [place] % (Auto) 2.2 Eos % (Auto) 0.1 Baso % (Auto) 0.3 Neut # (Auto) 0.7 L Lymph # (Auto) 0.2 L [place] # (Auto) 0.0 Eos # (Auto) 0.0 Baso # (Auto) 0.0 WBC Differential Manual diff final Seg Neuts % (Manual) 69 Band Neuts % (Manual) 8 H Lymphocytes % (Manual) 15 Monocytes % (Manual) 8 Abs Neuts (Manual) 0.8 L Nucleated RBCs/100 WBC 2 H Differential Comment . Toxic Granulation 2+ H Platelet Estimate Normal Platelet Morphology Enlarged H Creatinine 0.64 Estimated GFR Greater than 89 Culture Results: Microbiology 05/04/18 23:53 Aerobic Blood Culture - Final Blood - Peripheral No growth in 5 days Anaerobic Blood Culture - Final No growth in 5 days 05/04/18 23:20 Aerobic Blood Culture - Final Blood - Line No growth in 5 days Anaerobic Blood Culture - Final No growth in 5 days Medications: Active Medications Generic Name Dose Route Start Last Admin Trade Name Freq PRN Reason Stop Dose Admin Acetaminophen 650 mg 05/01/18 13:55 05/01/18 14:07 Tylenol PO 650 mg Q4H PRN Administration BLOOD PRODUCT TRANSFUSION Hydrocodone Bitart/Acetaminophen 1 tab 04/23/18 11:51 04/28/18 19:45 Melba 7.5/325 PO 1 tab Q6H PRN Administration PAIN SCALE 6 TO 10 Acyclovir 400 mg 04/24/18 22:00 05/11/18 05:03 Zovirax PO 400 mg Q8HR [facility] Administration Chlorhexidine Gluconate 15 ml 04/23/18 21:00 05/11/18 08:41 Peridex 0.12% Liq SWISH-SPIT 15 ml BID [facility] Administration Diphenhydramine HCl 25 mg 05/01/18 13:54 05/04/18 09:56 Benadryl PO 25 mg Q4H PRN Administration BLOOD PRODUCT TRANSFUSION Enoxaparin Sodium 40 mg 05/09/18 09:00 05/11/18 08:42 Lovenox Inj SQ 40 mg DAILY [facility] Administration Heparin Sodium (Porcine) 0 unit 04/16/18 00:00 04/26/18 00:44 Heparin Central Flush IV.FLUSH 200 unit PRN PRN Administration Flush each lumen Heparin Sodium (Porcine) 0 unit 04/16/18 09:00 05/11/18 08:43 Heparin Central Flush IV.FLUSH 500 unit DAILY [facility] Administration Vancomycin HCl 1,500 mg/ 515 mls @ 250 mls/hr 05/08/18 20:00 05/11/18 08:44 Sodium Chloride IV.SIG Infused Q8H [facility] Infusion Micafungin Sodium 150 mg/ 100 mls @ 100 mls/hr 04/30/18 18:00 05/10/18 18:29 Sodium Chloride IV.SIG 100 mls/hr Q24H [facility] Administration Meropenem 2,000 mg/ Sodium 100 mls @ 200 mls/hr 05/06/18 20:00 05/11/18 08:44 Chloride IV.SIG Infused Q8H [facility] Infusion Lactobacillus Acidophilus 1 tab 05/06/18 21:00 05/11/18 08:42 Lactinex PO 1 tab BID [facility] Administration Lidocaine HCl 15 ml 04/23/18 10:00 05/03/18 14:07 Xylocaine 2% Viscous SWISH-SPIT 15 ml Q4H PRN Administration PAIN SCALE 6 TO 10 Lorazepam 0.5 mg 05/09/18 08:16 05/10/18 00:18 Ativan PO 0.5 mg Q6H PRN Administration ANXIETY Miscellaneous Information 1 each 04/16/18 00:00 04/16/18 13:22 Misc Nursing Information OTHER Not Given [id number] [facility] Morphine Sulfate 2 mg 04/16/18 00:00 04/23/18 12:56 Morphine Inj IV.PUSH 2 mg Q2H PRN Administration PAIN SCALE 6 TO 10 Multivitamins 1 tab 05/03/18 09:00 05/11/18 08:42 Theragran PO 1 tab DAILY [facility] Administration Nystatin 5 ml 05/05/18 13:00 05/11/18 08:43 Mycostatin Liq SWISH-SWAL Not Given QID [facility] Ondansetron HCl 4 mg 04/16/18 00:00 04/23/18 10:26 Zofran Inj IV.PUSH 4 mg Q6H PRN Administration NAUSEA OR VOMITING Pantoprazole Sodium 20 mg 05/03/18 09:00 05/11/18 08:42 Protonix PO 20 mg DAILY [facility] Administration Prochlorperazine Edisylate 5 mg 04/26/18 08:51 05/03/18 04:26 Compazine Inj IV.PUSH 5 mg Q6H PRN Administration MILD NAUSEA Sodium Chloride 0 ml 04/16/18 09:00 05/11/18 08:43 Ns Flush IV.FLUSH 10 ml DAILY [facility] Administration Sodium Chloride 0 ml 04/16/18 00:00 04/27/18 09:15 Ns Flush IV.FLUSH 5 ml PRN PRN Administration FLUSH AFTER USING IV ACCESS Objective Remarks: GENERAL: Well-nourished, well-developed patient. SKIN: Warm and dry. Severe gingivitis and gum disease still present. HEAD: Normocephalic. EYES: No scleral icterus. No injection or drainage. NECK: Supple, trachea midline. No JVD or lymphadenopathy. LYMPHATIC: No adenopathy. CARDIOVASCULAR: Regular rate and rhythm without murmurs. RESPIRATORY: Breath sounds equal bilaterally. No accessory muscle use. GASTROINTESTINAL: Abdomen soft, non-tender, nondistended. EXTREMITIES: No cyanosis, or edema. MUSCULOSKELETAL: Adequate muscle tone. NEUROLOGICAL: No obvious focal deficit. Awake, alert, and oriented x3. PSYCHIATRIC: Appropriate mood and affect; insight and judgment normal. Assessment/Plan - Plan 04/15 D1 Daunorubicin + Cytarabine 04/16: D2 Daunorubicin + Cytarabine 04/17: D3 Daunorubicin + Cytarabine 04/18: D4 Cytarabine. Afebrile. Tolerating chemo well. 04/19: D5 Cytarabine continue 04/20: D6 Cytarabine continues. 04/21: D7 Cytarabine continues. Afebrile, tolerating well. 04/22: D8 cytarabine. Afebrile, platelet transfusion this a.m. Now with jaw pain. 04/23: D9 Cytarabine completed overnight. Afebrile. Continued jaw pain. Diarrhea 3 x's/day, +n/v x's 1, + insomnia. 04/24: D10 febrile, T-max 102. Blood cultures pending. Currently on cefepime. ID and ENT consult. 04/25: D11 febrile, T-max 102.5F. Blood cultures no growth 2 days. Antibiotics per ID. ENT deferred consult to oral maxillofacial surgery. 04/28: D14 febrile, T-max 100.6F. Blood cultures no growth and 4 days. Current cultures pending. Day 14 bone marrow biopsy scheduled for today. 04/29: D15 febrile, T-max 101.6F. Blood cultures with no growth. Bone marrow biopsy completed yesterday, patient tolerated well. Results pending. 04/30: D16 febrile, T-max 102.1 F. Blood cultures continue with no growth. Bone marrow biopsy pending. 05/01: D17 febrile, T-max 102.1F. Blood cultures continue with no growth. Bone marrow biopsy resulted, pending review with pathology. 05/02: D18 febrile, T-max 102.3F. Blood cultures with no growth. 05/05: D21 febrile, T-max 103.2F. Blood cultures with no growth. 05/06: D2 T-max 100.1F. Blood cultures with no growth. Continues on antibiotics per ID. 05/07: D23 afebrile. Blood cultures with no growth. Pancytopenia improving. 05/08: D24 afebrile. Blood cultures with no growth. Hgb 8.3, Platelets 68k, Abs Eliot 300. 1. Neutropenia persist. Continue neutropenic precaution. Suspect delayed recovery due to gingivitis and persistent gum pathology. 2. Thrombocytopenia recovered. Encouraged to ambulate. DVT prophylaxis continue to prevent deep vein thromboses given that his platelets are now normal. 3. Swollen gums, erosive gingivitis-no change. Continue mouth care with Peridex. Patient with pending dental appointment, upon discharge. Gingivitis previously predates diagnosis of acute myeloid leukemia. 4. Sleep is better. Continue Valium as needed. Care taken not to administer concurrent with lorazepam. 5. Mild anemia no transfusion needed 6. Continue supportive care. 7. Lorazepam switch to p.o. as needed anxiety and sleep. Discussed with patient's mom via cell phone. Reiterate that he has a diagnosis of acute myeloid leukemia. Leukemia changes his life significantly. He has some poor risk features of. His abnormal cytogenetics. He will need bone marrow transplant consultation and ultimately a transplant. The bone marrow transplant team has the final decision on the transplantation. In general, patients with a matched sibling donor with high or intermediate risk will be considered for transplant particularly if they are young. He does have 3 brothers who are potential donors. The case has previously been discussed with stone gluer, and verbal communication suggest that the patient is indeed a candidate. Molecular studies for FLT 3 mutation, and BRC-ABL are negative. Patient appeared to have achieved remission with the induction chemotherapy. He is pending remission bone marrow biopsy which we may schedule on Tuesday, anticipating continued cytopenia recovery. He has been hospitalized the last 4 weeks. Case management of been consulted early on in the case. Leukemias were explained in detail. In anticipation of his discharge our sales agent financial report service in the outpatient was consulted as well. This "remission" post initial induction therapy is known to be short lived without additional consolidation chemotherapy. This should NOT be mistaken for a cure. It is however a necessary criteria for cure. If a patient does not achieve a remission with induction, it is unlikely that he will be cure. Therefore, the patient is not able to resume usual activity, or resume life as usual since his leukemia will invariable come back without additional consolidation chemotherapy. We discussed that additional chemotherapy is needed for the next six months and active surveillance the next six months, so long as he is responding. Transplant can take the place of that consolidation when made available. However if he relapse, or our initial remission is not lasting, or if he does not find a match for transplant before he relapse, which is a real possibility in cases of leukemia, he may need continued chemotherapy for the rest of the year or the rest of his life. His longevity will significantly be impacted with we cannot maintain that remission. Case management has been consulted to assist in patient assistance versus disability and Medicaid application. Patient is disabled given his disease, the acute myeloid leukemia, and the treatments planned in the year coming. He needs the continued consolidation chemotherapy, that means additional cycles of chemotherapy looking similar to the one he just had, with prolonged hospitalization. In this manner he would not be able to work. Again, 100% of all remission post induction will progress and leukemia will recur without consolidation therapy. Consolidation therapy needs to continue or he will . Plan of care was discussed with Dr. Frederick.
--- NOTE | 2018-05-11 14:38 | P.PN ---
Physical Exam Vital signs: Vital Signs 05/10/18 15:58 05/10/18 20:00 05/11/18 00:00 Temperature 99.2 F 99.2 F 99.8 F H Pulse Rate 109 H 102 H 104 H Respiratory Rate 16 17 17 Blood Pressure 110/79 102/57 L 118/77 Pulse Oximetry 97 100 05/11/18 05:04 05/11/18 08:06 05/11/18 13:14 Temperature 100.1 F H 98.3 F 98.5 F Pulse Rate 101 H 97 H 112 H Respiratory Rate 16 16 20 Blood Pressure 101/51 L 117/75 104/66 Pulse Oximetry 99 98 100 Intake & Output 05/10/18 05/11/18 05/11/18 18:59 06:59 18:59 Intake Total 1020 / 1020 1100 / 1100 935 / 935 Output Total 2500 / 2500 Balance 1020 / 1020 -1400 / -1400 935 / 935 Weight 105.2 kg Intake: IV 620 / 620 620 / 620 815 / 815 Merrem Inj 2,000 MG In NS Inj 100 / 100 100 / 100 200 / 200 100 ML @ 200 mls/hr IV.SIG Q8H [facility] Rx#:[id number] Mycamine Inj 150 MG In NS Inj 100 / 100 100 ML @ 100 mls/hr IV.SIG Q24H [facility] Rx#:[id number] Vancomycin Inj 1,500 MG In NS 520 / 520 520 / 520 515 / 515 Inj 500 ML @ 250 mls/hr IV.SIG Q8H [facility] Rx#:[id number] Oral 400 / 400 480 / 480 120 / 120 Output: Urine 2500 / 2500 Other: Date of Last Bowel Movement 05/09/18 05/09/18 Narrative: Subjective Interval history: The patient is in bed he is nauseated at this time. However says she is able to eat has no vomiting no diarrhea or constipation. Has formed stools. No fever or chills. Physical Exam GENERAL: Young male, appears in nad. HEENT: Shaved head and alopecia. NECK: Supple no tender LAD or JVD. HEART: RRR no m/r/g. LUNGS: CTAB , no wheezes or crackles. ABDOMEN: +BS, soft, NT, ND. EXTREMITIES: No LE edema. NEURO: Awake and alert. PSYCH: Appropriate mood and affect. SKIN: No rash. Assessment and Plan 27 YOWM admitted 04/12/2018 due to generalized weakness. His hemoglobin was 3.3 and platelets 30k on admission. Hematology was consulted, and patient was ultimately diagnosed with AML and has undergone induction chemotherapy. His course has been complicated by neutropenic fever with persistent spikes in temperature. 1. Acute myeloid leukemia with pancytopenia - Confirmed with BM biopsy 04/13 - Heme/onc consulted and ff, completed nine days of induction chemo ( daunorubicin + cytarabine x 3 days followed by 6 days of cytarabine) - Per oncology: transfuse if Hb<7.0 or PLT<15K - Hb and platelets so far stable no need for transfusion at this time. Monitor and transfuse oer hem/onc indications - Transfused 1 unit of platelets and 1 units RBCs - Continue to monitor CBC closely - 04/28 bone marrow biopsy performed, flow cytometry consistent with residual AML Hem /onc following, patient is a candidate for BM transplant. cM consulted and ff for disability application. 2. Neutropenic fever -Has been afebrile so far - White count continues to be extremely low and patient pancytopenic - U/A and CXR unremarkable from 04/23 - Multiple blood cultures have been negative to date - ID following - Received Meropenem, vancomycin, and acyclovir, adjust per ID. Cefepime DCd as patient had rash. Stop antibiotics when the absolute neutrophil count is up to 1000 per ID recommendations. - No specific nidus of infection at this time -Blood cultures are negative to date - Continue to closely monitor 3. Diarrhea - Continue to have loose stool - C. diff PCR negative 4. Jaw pain - CT with no evidence of necrosis or other pathology 5. Mucositis - Continue Diflucan and Nystatin S&S - continue peridex . To follow up with dentist as OP 6. History of seizure - Seizure precautions 7. Hypokalemia - Potassium continues to be low but improved from prior days - Mg WNL - Increase to KCl PO 40 BID - Continue to monitor closely 8. Decreased appetite with hypokalemia/ Replace K and monitor. Check mag as well and replace. Add MVT DVT prophylaxis: SCDs, encourage ambulation. Chemical anticoagulation C/I given severe thrombocytopenia Discharge Planning: neutropenic precautions Discussed with the patient, nurse Improving DC plan: poss DC at the end of this week, or early next week, when improved and cleared by hematology oncology and ID CM also ff for DC plan Also patient with life threatening disease requiring eval for BM transplantation , needs disability application, CM ff Discussed with Dr Kerr oncology and agree. Patient with life-threatening disease needs bone marrow transplant, long-term chemo patient cannot work for more than the one year with multiple hospitalizations. He is disabled given his disease, the acute myeloid leukemia, and the treatments planned in the year coming. He needs the continued consolidation chemotherapy, that means additional cycles of chemotherapy looking similar to the one he just had, with prolonged hospitalization. In this manner he would not be able to work. Again, 100% of all remission post induction will progress and leukemia will recur without consolidation therapy. Consolidation therapy needs to continue or he will . Results - Labs CBC & Chem 7: 05/11/18 05:00 05/11/18 05:00 Laboratory Results - last 24 hr 05/11/18 05/11/18 05:00 05:00 WBC 1.0 L RBC 2.79 L Hgb 8.1 L Hct 23.3 L MCV 83.5 MCH 28.9 MCHC 34.6 RDW 13.7 Plt Count 184 D MPV 8.3 Prelim Diff (Auto) Slide review pending Neut % (Auto) 74.4 H Lymph % (Auto) 23.0 [place] % (Auto) 2.2 Eos % (Auto) 0.1 Baso % (Auto) 0.3 Neut # (Auto) 0.7 L Lymph # (Auto) 0.2 L [place] # (Auto) 0.0 Eos # (Auto) 0.0 Baso # (Auto) 0.0 WBC Differential Manual diff final Seg Neuts % (Manual) 69 Band Neuts % (Manual) 8 H Lymphocytes % (Manual) 15 Monocytes % (Manual) 8 Abs Neuts (Manual) 0.8 L Nucleated RBCs/100 WBC 2 H Differential Comment . Toxic Granulation 2+ H Platelet Estimate Normal Platelet Morphology Enlarged H Creatinine 0.64 Estimated GFR Greater than 89 Microbiology 05/04/18 23:53 Blood - Peripheral Aerobic Blood Culture - Final No growth in 5 days 05/04/18 23:53 Blood - Peripheral Anaerobic Blood Culture - Final No growth in 5 days - Procedures BM biopsy Leal catheter placement Echo 04/14/2018 The left ventricular systolic function is hyperdynamic with an estimated ejection fraction in the range of 65- 70%. Normal left ventricular size. Wall thickness is normal. No regional wall motion abnormalities are present. Trace mitral valve regurgitation. The left ventricular systolic function is hyperdynamic with an estimated ejection fraction in the range of 65- 70%. Normal left ventricular size. Wall thickness is normal. No regional wall motion abnormalities are present. Trace mitral valve regurgitation. The estimated pulmonary arterial pressure is 30.6 mmHg. BM BIOPSY 04-28 Assessment and Plan - Assessment (1) AML (acute myeloid leukemia) Code(s): C92.00 - Acute myeloblastic leukemia, not having achieved remission Status: Acute (2) Pancytopenia Code(s): D61.818 - Other pancytopenia Status: Acute (1) AML (acute myeloid leukemia) Qualifiers: Leukemia Active/Remission status: without remission Qualified Code(s): C92.00 - Acute myeloblastic leukemia, not having achieved remission
[2018-05-11] MEDS: Micafungin Inj 150 MG in Sodium Chlor 0.9% Inj 100 ML IV.SIG SCH (17:00)
[2018-05-11] MEDS: LORazepam 0.5 MG Tablet PO PRN (23:20)
[2018-05-12] MEDS: Vancomycin Inj 1,500 MG in Sodium Chlor 0.9% Inj 500 ML IV.SIG SCH ×2 (04:58→12:55)
[2018-05-12] MEDS: Meropenem Inj 2,000 MG in Sodium Chlor 0.9% Inj 100 ML IV.SIG SCH ×3 (04:58→23:07)
[2018-05-12] MEDS: Acyclovir 200 MG Capsule PO SCH ×3 (05:03→21:39)
[2018-05-12 05:27] LABS: Baso % (Auto) 0.8 % (0.0-2.0); Hematocrit 22.7 % (39.0-51.0); Hemoglobin 7.7 gm/dL (13.0-17.0); Lymph # (Auto) 0.2 th/mm3 (1.0-4.8); Lymph % (Auto) 18.4 % (9.0-44.0); Mean Corpuscular HGB Conc 33.9 % (32.0-36.0); Mean Corpuscular Hemoglobin 28.3 pg (27.0-34.0); Mean Corpuscular Volume 83.6 fL (80.0-100.0); Mean Platelet Volume 8.5 fL (7.0-11.0); Neut # (Auto) 0.9 th/mm3 (1.8-7.7); Neut % (Auto) 77.8 % (16.0-70.0); Platelet Count 256 th/mm3 (150-450); Red Blood Count 2.72 mil/mm3 (4.50-5.90); Red Cell Distribution Width 13.6 % (11.6-17.2); White Blood Count 1.1 th/mm3 (4.0-11.0)
[2018-05-12 06:46] LABS: Lymphocytes 16 % (9-44); Monocytes 2 % (0-8); Myelocytes 2 % (0-0); Ovalocytes 1+; Tear Drop Cells 1+
[2018-05-12 06:47] LABS: Platelet Estimate Normal (Normal); Platelet Morphology Normal (Normal)
[2018-05-12] MEDS: Pantoprazole Sodium 20 MG DR Tablet PO SCH (09:22)
[2018-05-12] MEDS: Enoxaparin Inj 40 MG/0.4 ML Syringe SQ SCH (09:22)
[2018-05-12] MEDS: Heparin Central Flush 100 UNIT/ML 5 ML Vial IV.FLUSH SCH (09:23)
[2018-05-12] MEDS: Lactobacillus Acidophilus/L. Spores Tablet PO SCH ×2 (09:24→21:39)
[2018-05-12] MEDS: Nystatin Liq 500,000 UNIT/5 ML UDC SWISH-SWAL SCH ×4 (09:24→21:39)
--- NOTE | 2018-05-12 10:06 | P.PNONC ---
Subjective Interval history: T-max 100.1F. Patient lying in bed, in no acute distress. RN at the bedside administering a.m. medications. Patient has no new complaints at this time. Objective Vital Signs/Intake & Output: Vital Signs 05/11/18 13:14 05/11/18 17:39 05/11/18 20:00 Temperature 98.5 F 99.5 F 99.7 F H Pulse Rate 112 H 97 H 100 H Respiratory Rate 20 20 Blood Pressure 104/66 117/72 121/64 Pulse Oximetry 100 98 98 05/12/18 00:00 05/12/18 04:00 05/12/18 08:00 Temperature 100.1 F H 98.6 F 98.3 F Pulse Rate 108 H 97 H 98 H Respiratory Rate 16 16 16 Blood Pressure 115/72 100/52 L 113/72 Pulse Oximetry 98 98 98 Intake & Output 05/11/18 05/12/18 05/12/18 18:59 06:59 18:59 Intake Total 1670 / 1670 2065 / 2065 Output Total 2875 / 2875 Balance 1670 / 1670 -810 / -810 Weight 96 kg Intake: IV 1430 / 1430 715 / 715 Merrem Inj 2,000 MG In NS Inj 200 / 200 200 / 200 100 ML @ 200 mls/hr IV.SIG Q8H [facility] Rx#:[id number] Mycamine Inj 150 MG In NS Inj 200 / 200 100 ML @ 100 mls/hr IV.SIG Q24H [facility] Rx#:[id number] Vancomycin Inj 1,500 MG In NS 1030 / 1030 515 / 515 Inj 500 ML @ 250 mls/hr IV.SIG Q8H [facility] Rx#:[id number] Oral 240 / 240 1350 / 1350 Output: Urine 2875 / 2875 Other: Date of Last Bowel Movement 05/11/18 Result Diagrams: 05/12/18 05:00 05/11/18 05:00 Laboratory Results: Laboratory Results - last 24 hr 05/12/18 05:00 WBC 1.1 L RBC 2.72 L Hgb 7.7 L Hct 22.7 L MCV 83.6 MCH 28.3 MCHC 33.9 RDW 13.6 Plt Count 256 D MPV 8.5 Prelim Diff (Auto) Slide review pending Neut % (Auto) 77.8 H Lymph % (Auto) 18.4 [place] % (Auto) 3.0 Eos % (Auto) 0.0 Baso % (Auto) 0.8 Neut # (Auto) 0.9 L Lymph # (Auto) 0.2 L [place] # (Auto) 0.0 Eos # (Auto) 0.0 Baso # (Auto) 0.0 WBC Differential Manual diff final Seg Neuts % (Manual) 69 Band Neuts % (Manual) 11 H Lymphocytes % (Manual) 16 Monocytes % (Manual) 2 Myelocytes % (Man) 2 H Abs Neuts (Manual) 0.9 L Differential Comment . Platelet Estimate Normal Platelet Morphology Normal Tear Drop Cells 1+ H Ovalocytes 1+ H Culture Results: Microbiology 05/04/18 23:53 Aerobic Blood Culture - Final Blood - Peripheral No growth in 5 days Anaerobic Blood Culture - Final No growth in 5 days 05/04/18 23:20 Aerobic Blood Culture - Final Blood - Line No growth in 5 days Anaerobic Blood Culture - Final No growth in 5 days Medications: Active Medications Generic Name Dose Route Start Last Admin Trade Name Freq PRN Reason Stop Dose Admin Acetaminophen 650 mg 05/01/18 13:55 05/01/18 14:07 Tylenol PO 650 mg Q4H PRN Administration BLOOD PRODUCT TRANSFUSION Hydrocodone Bitart/Acetaminophen 1 tab 04/23/18 11:51 04/28/18 19:45 [place] 7.5/325 PO 1 tab Q6H PRN Administration PAIN SCALE 6 TO 10 Acyclovir 400 mg 04/24/18 22:00 05/12/18 05:03 Zovirax PO 400 mg Q8HR [facility] Administration Chlorhexidine Gluconate 15 ml 04/23/18 21:00 05/11/18 21:56 Peridex 0.12% Liq SWISH-SPIT 15 ml BID [facility] Administration Diphenhydramine HCl 25 mg 05/01/18 13:54 05/04/18 09:56 Benadryl PO 25 mg Q4H PRN Administration BLOOD PRODUCT TRANSFUSION Enoxaparin Sodium 40 mg 05/09/18 09:00 05/12/18 09:22 Lovenox Inj SQ 40 mg DAILY [facility] Administration Heparin Sodium (Porcine) 0 unit 04/16/18 00:00 04/26/18 00:44 Heparin Central Flush IV.FLUSH 200 unit PRN PRN Administration Flush each lumen Heparin Sodium (Porcine) 0 unit 04/16/18 09:00 05/12/18 09:23 Heparin Central Flush IV.FLUSH 500 unit DAILY [facility] Administration Vancomycin HCl 1,500 mg/ 515 mls @ 250 mls/hr 05/08/18 20:00 05/12/18 04:58 Sodium Chloride IV.SIG 250 mls/hr Q8H [facility] Administration Micafungin Sodium 150 mg/ 100 mls @ 100 mls/hr 04/30/18 18:00 05/11/18 18:00 Sodium Chloride IV.SIG Infused Q24H [facility] Infusion Meropenem 2,000 mg/ Sodium 100 mls @ 200 mls/hr 05/06/18 20:00 05/12/18 05:38 Chloride IV.SIG Infused Q8H [facility] Infusion Lactobacillus Acidophilus 1 tab 05/06/18 21:00 05/12/18 09:24 Lactinex PO 1 tab BID [facility] Administration Lidocaine HCl 15 ml 04/23/18 10:00 05/03/18 14:07 Xylocaine 2% Viscous SWISH-SPIT 15 ml Q4H PRN Administration PAIN SCALE 6 TO 10 Lorazepam 0.5 mg 05/09/18 08:16 05/11/18 23:20 Ativan PO 0.5 mg Q6H PRN Administration ANXIETY Miscellaneous Information 1 each 04/16/18 00:00 04/16/18 13:22 Mis Nursing Information OTHER Not Given [id number] [facility] Morphine Sulfate 2 mg 04/16/18 00:00 04/23/18 12:56 Morphine Inj IV.PUSH 2 mg Q2H PRN Administration PAIN SCALE 6 TO 10 Multivitamins 1 tab 05/03/18 09:00 05/12/18 09:22 Theragran PO 1 tab DAILY [facility] Administration Nystatin 5 ml 05/05/18 13:00 05/12/18 09:24 Mycostatin Liq SWISH-SWAL Not Given QID [facility] Ondansetron HCl 4 mg 04/16/18 00:00 04/23/18 10:26 Zofran Inj IV.PUSH 4 mg Q6H PRN Administration NAUSEA OR VOMITING Pantoprazole Sodium 20 mg 05/03/18 09:00 05/12/18 09:22 Protonix PO 20 mg DAILY [facility] Administration Prochlorperazine Edisylate 5 mg 04/26/18 08:51 05/03/18 04:26 Compazine Inj IV.PUSH 5 mg Q6H PRN Administration MILD NAUSEA Sodium Chloride 0 ml 04/16/18 09:00 05/12/18 09:23 Ns Flush IV.FLUSH 10 ml DAILY [facility] Administration Sodium Chloride 0 ml 04/16/18 00:00 04/27/18 09:15 Ns Flush IV.FLUSH 5 ml PRN PRN Administration FLUSH AFTER USING IV ACCESS Objective Remarks: GENERAL: Young male patient, lying in bed, in no acute distress. SKIN: warm and dry. Leal catheter/right chest wall, no redness/swelling/ drainage. HEAD: Normocephalic. EYES: No scleral icterus. No injection or drainage. [place]. NECK: Supple, trachea midline. CARDIOVASCULAR: Regular rate and rhythm without murmurs. RESPIRATORY: Anterior breath sounds clear & equal bilaterally. No accessory muscle use. GASTROINTESTINAL: Abdomen soft, non-tender, nondistended. EXTREMITIES: No cyanosis, or edema. MUSCULOSKELETAL: Adequate muscle tone. NEUROLOGICAL: No obvious focal deficit. Alert and oriented 's 3. PSYCHIATRIC: Appropriate mood and affect; insight and judgment normal. Assessment/Plan - Plan 04/15 D1 Daunorubicin + Cytarabine 04/16: D2 Daunorubicin + Cytarabine 04/17: D3 Daunorubicin + Cytarabine 04/18: D4 Cytarabine. Afebrile. Tolerating chemo well. 04/19: D5 Cytarabine continue 04/20: D6 Cytarabine continues. 04/21: D7 Cytarabine continues. Afebrile, tolerating well. 04/22: D8 cytarabine. Afebrile, platelet transfusion this a.m. Now with jaw pain. 04/23: D9 Cytarabine completed overnight. Afebrile. Continued jaw pain. Diarrhea 3 x's/day, +n/v x's 1, + insomnia. 04/24: D10 febrile, T-max 102. Blood cultures pending. Currently on cefepime. ID and ENT consult. 04/25: D11 febrile, T-max 102.5F. Blood cultures no growth 2 days. Antibiotics per ID. ENT deferred consult to oral maxillofacial surgery. 04/28: D14 febrile, T-max 100.6F. Blood cultures no growth and 4 days. Current cultures pending. Day 14 bone marrow biopsy scheduled for today. 04/29: D15 febrile, T-max 101.6F. Blood cultures with no growth. Bone marrow biopsy completed yesterday, patient tolerated well. Results pending. 04/30: D16 febrile, T-max 102.1 F. Blood cultures continue with no growth. Bone marrow biopsy pending. 05/01: D17 febrile, T-max 102.1F. Blood cultures continue with no growth. Bone marrow biopsy resulted, pending review with pathology. 05/02: D18 febrile, T-max 102.3F. Blood cultures with no growth. 05/05: D21 febrile, T-max 103.2F. Blood cultures with no growth. 05/06: D2 T-max 100.1F. Blood cultures with no growth. Continues on antibiotics per ID. 05/07: D23 afebrile. Blood cultures with no growth. Pancytopenia improving. 05/08: D24 afebrile. Blood cultures with no growth. Hgb 8.3, Platelets 68k, Abs [place] 300. 05/12: D28 T-max 100.1F. Blood cultures remain with no growth. Pancytopenia continues to improve. Absolute neutrophils 900. 1. Neutropenia improving. Continue neutropenic precaution. 2. Thrombocytopenia recovered. Encouraged to ambulate. Continue DVT prophylaxis. 3. Swollen gums, erosive gingivitis-persists. Continue mouth care with Peridex. Patient with pending dental appointment, upon discharge. Gingivitis previously predates diagnosis of acute myeloid leukemia. Patient has a scheduled outpatient dental appointment for evaluation. 4. Sleep is better. Continue Valium as needed. Care taken not to administer concurrent with lorazepam. 5. Mild anemia, hemoglobin 7.7 today. No transfusion needed, we will continue to monitor. 6. Continue supportive care. - Attending Statement The exam, history, and the medical decision-making described in the above note were completed with the assistance of the mid-level provider. I reviewed and agree with the findings presented. I attest that I had a [id number] encounter with the patient on the same day, and personally performed and documented my assessment and findings in the medical record. Low-grade temperature continue. Still neutropenic. Plan to DC antibiotic when ANC is greater than 1000. Anticipate bone marrow biopsy and aspiration on Tuesday pending recovery of his counts. We discussed need to see oral surgery to evaluate his gums, would like to get a biopsy to rule out AML involvement which would complicate his clinical course further. Clinically he is improving which suggest that we are dealing with severe gum disease. Discussed the significance of remission bone marrow.
[2018-05-12] MEDS ORDERED: Pharmacy Ordered Lab Info OTHER ONE (11:45)
[2018-05-12] MEDS: Chlorhexidine Gluconate 0.12% Liq 15 ML UDC SWISH-SPIT SCH ×2 (13:47→21:39)
--- NOTE | 2018-05-12 15:20 | P.PN ---
Physical Exam Vital signs: Vital Signs 05/11/18 17:39 05/11/18 20:00 05/12/18 00:00 Temperature 99.5 F 99.7 F H 100.1 F H Pulse Rate 97 H 100 H 108 H Respiratory Rate 20 16 Blood Pressure 117/72 121/64 115/72 Pulse Oximetry 98 98 98 05/12/18 04:00 05/12/18 08:00 05/12/18 12:00 Temperature 98.6 F 98.3 F 99.5 F Pulse Rate 97 H 98 H 97 H Respiratory Rate 16 16 18 Blood Pressure 100/52 L 113/72 114/72 Pulse Oximetry 98 98 98 Intake & Output 05/11/18 05/12/18 05/12/18 18:59 06:59 18:59 Intake Total 1670 / 1670 2065 / 2065 515 / 515 Output Total 2875 / 2875 Balance 1670 / 1670 -810 / -810 515 / 515 Weight 96 kg Intake: IV 1430 / 1430 715 / 715 515 / 515 Merrem Inj 2,000 MG In NS Inj 200 / 200 200 / 200 100 ML @ 200 mls/hr IV.SIG Q8H [facility] Rx#:[id number] Mycamine Inj 150 MG In NS Inj 200 / 200 100 ML @ 100 mls/hr IV.SIG Q24H [facility] Rx#:[id number] Vancomycin Inj 1,500 MG In NS 1030 / 1030 515 / 515 515 / 515 Inj 500 ML @ 250 mls/hr IV.SIG Q8H [facility] Rx#:[id number] Oral 240 / 240 1350 / 1350 Output: Urine 2875 / 2875 Other: Date of Last Bowel Movement 05/11/18 Narrative: Subjective Interval history: Very pleasant patient is in bed says smell of the cleaning floor detergent is bothering him and he felt nauseated. Denies fevers. However the patient was noted with low grade fever at 100.1. Not coughing no urinary complaints. Feels tired. Not eating much. Physical Exam GENERAL: Young male, appears in nad. HEENT: Shaved head and alopecia. NECK: Supple no tender LAD or JVD. HEART: RRR no m/r/g. LUNGS: No cough. CTAB , no wheezes or crackles. ABDOMEN: +BS, soft, NT, ND. EXTREMITIES: No LE edema. NEURO: Awake and alert. PSYCH: Appropriate mood and affect. SKIN: No rash. Assessment and Plan 27 YOWM admitted 04/12/2018 due to generalized weakness. His hemoglobin was 3.3 and platelets 30k on admission. Hematology was consulted, and patient was ultimately diagnosed with AML and has undergone induction chemotherapy. His course has been complicated by neutropenic fever with persistent spikes in temperature. 1. Acute myeloid leukemia with pancytopenia - Confirmed with BM biopsy 04/13 - Heme/onc consulted and ff, completed nine days of induction chemo ( daunorubicin + cytarabine x 3 days followed by 6 days of cytarabine) - Per oncology: transfuse if Hb<7.0 or PLT<15K - Hb and platelets so far stable no need for transfusion at this time. Monitor and transfuse oer hem/onc indications - Transfused 1 unit of platelets and 1 units RBCs - Continue to monitor CBC closely - 04/28 bone marrow biopsy performed, flow cytometry consistent with residual AML Hem /onc following, patient is a candidate for BM transplant. cM consulted and ff for disability application. - Anticipate bone marrow biopsy and aspiration on Tuesday05/15/18 pending recovery of his counts. Needs to see oral surgery to evaluate his gums, would like to get a biopsy to rule out AML involvement which would complicate his clinical course further. 2. Neutropenic fever -Has been afebrile so far - White count continues to be low and patient pancytopenic - U/A and CXR unremarkable - Multiple blood cultures have been negative to date - ID following - Received Meropenem, vancomycin, and acyclovir, adjust per ID. Cefepime DCd as patient had rash. Stop antibiotics when the absolute neutrophil count is up to 1000 per ID recommendations. - No specific nidus of infection at this time -Blood cultures are negative to date - Continue to closely monitor 3. Diarrhea- Resolved - C. diff PCR negative - Started probiotic and diarrhea resolved. 4. Jaw pain - CT with no evidence of necrosis or other pathology 5. Mucositis - Continue Diflucan and Nystatin S&S - continue peridex . To follow up with dentist as OP - Needs to see oral surgery to evaluate his gums, would like to get a biopsy to rule out AML involvement which would complicate his clinical course further. 6. History of seizure - Seizure precautions 7. Hypokalemia - Potassium continues to be low but improved from prior days - Mg WNL - Increase to KCl PO 40 BID - Continue to monitor closely 8. Decreased appetite with hypokalemia/ Replace K and monitor. Check mag as well and replace. Continue MVT 9. Nausea: antiemetic as need. DVT prophylaxis: SCDs, encourage ambulation. Chemical anticoagulation C/I given severe thrombocytopenia Discharge Planning: neutropenic precautions Discussed with the patient, nurse DC plan: poss DC next week,when improved and cleared by hematology oncology and ID. CM also ff for DC plan Also patient with life threatening disease requiring eval for BM transplantation , needs disability application, CM ff Discussed with Dr Kerr oncology. Patient with life-threatening disease needs bone marrow transplant, long-term chemo patient cannot work for more than the one year, also with multiple hospitalizations and would require in the future multiple hospitalizations. He is disabled given his disease, the acute myeloid leukemia, and the treatments planned in the year coming. He needs the continued consolidation chemotherapy, that means additional cycles of chemotherapy looking similar to the one he just had, with prolonged hospitalization. In this manner he would not be able to work. Again, 100% of all remission post induction will progress and leukemia will recur without consolidation therapy. Consolidation therapy needs to continue or he will per hem/onc Dr Kerr. Follow up; Labs cbc, bmp, and also monitor for signs of infection. Stop antibiotics when the absolute neutrophil count is up to 1000 per ID recommendations. Anticipate bone marrow biopsy and aspiration on Tuesday05/15/18 pending recovery of his counts. Needs to see oral surgery to evaluate his gums, would like to get a biopsy to rule out AML involvement which would complicate his clinical course further Results - Labs CBC & Chem 7: 05/12/18 05:00 05/11/18 05:00 Laboratory Results - last 24 hr 05/12/18 05/12/18 05:00 13:00 WBC 1.1 L RBC 2.72 L Hgb 7.7 L Hct 22.7 L MCV 83.6 MCH 28.3 MCHC 33.9 RDW 13.6 Plt Count 256 D MPV 8.5 Prelim Diff (Auto) Slide review pending Neut % (Auto) 77.8 H Lymph % (Auto) 18.4 [place] % (Auto) 3.0 Eos % (Auto) 0.0 Baso % (Auto) 0.8 Neut # (Auto) 0.9 L Lymph # (Auto) 0.2 L [place] # (Auto) 0.0 Eos # (Auto) 0.0 Baso # (Auto) 0.0 WBC Differential Manual diff final Seg Neuts % (Manual) 69 Band Neuts % (Manual) 11 H Lymphocytes % (Manual) 16 Monocytes % (Manual) 2 Myelocytes % (Man) 2 H Abs Neuts (Manual) 0.9 L Differential Comment . Platelet Estimate Normal Platelet Morphology Normal Tear Drop Cells 1+ H Ovalocytes 1+ H Vancomycin Trough 19.9 H - Procedures BM biopsy Leal catheter placement Echo 04/14/2018 The left ventricular systolic function is hyperdynamic with an estimated ejection fraction in the range of 65- 70%. Normal left ventricular size. Wall thickness is normal. No regional wall motion abnormalities are present. Trace mitral valve regurgitation. The left ventricular systolic function is hyperdynamic with an estimated ejection fraction in the range of 65- 70%. Normal left ventricular size. Wall thickness is normal. No regional wall motion abnormalities are present. Trace mitral valve regurgitation. The estimated pulmonary arterial pressure is 30.6 mmHg. BM BIOPSY 04-28 Assessment and Plan - Assessment (1) AML (acute myeloid leukemia) Code(s): C92.00 - Acute myeloblastic leukemia, not having achieved remission Status: Acute (2) Pancytopenia Code(s): D61.818 - Other pancytopenia Status: Acute (1) AML (acute myeloid leukemia) Qualifiers: Leukemia Active/Remission status: without remission Qualified Code(s): C92.00 - Acute myeloblastic leukemia, not having achieved remission
[2018-05-12] MEDS: Micafungin Inj 150 MG in Sodium Chlor 0.9% Inj 100 ML IV.SIG SCH (18:04)
[2018-05-12] MEDS: LORazepam 0.5 MG Tablet PO PRN (23:07)
[2018-05-13] MEDS: Vancomycin Inj 1,250 MG in Sodium Chlor 0.9% Inj 250 ML IV.SIG SCH ×2 (00:24→09:24)
[2018-05-13] MEDS: Acyclovir 200 MG Capsule PO SCH ×3 (05:10→21:17)
[2018-05-13 05:39] LABS: Baso % (Auto) 0.4 % (0.0-2.0); Hemoglobin 7.5 gm/dL (13.0-17.0); Lymph # (Auto) 0.2 th/mm3 (1.0-4.8); Mean Corpuscular HGB Conc 33.8 % (32.0-36.0); Mean Corpuscular Hemoglobin 28.2 pg (27.0-34.0); Mean Corpuscular Volume 83.3 fL (80.0-100.0); Mono % (Auto) 2.8 % (0.0-8.0); Neut % (Auto) 77.8 % (16.0-70.0); Platelet Count 279 th/mm3 (150-450); Red Blood Count 2.65 mil/mm3 (4.50-5.90); Red Cell Distribution Width 13.6 % (11.6-17.2); White Blood Count 1.3 th/mm3 (4.0-11.0)
[2018-05-13 05:57] LABS: Anion Gap 7 meq/L (5-15); Blood Urea Nitrogen 3 mg/dL (7-18); Calcium 8.4 mg/dL (8.5-10.1); Carbon Dioxide 29.2 meq/L (21.0-32.0); Chloride 102 meq/L (98-107); Glomerular Filtration Rate Greater Than 89 mL/min (>89); Glucose,Random 89 mg/dL (74-106); Potassium 3.5 meq/L (3.5-5.1); Sodium 138 meq/L (136-145)
[2018-05-13] MEDS: Meropenem Inj 2,000 MG in Sodium Chlor 0.9% Inj 100 ML IV.SIG SCH (06:25)
[2018-05-13] MEDS: Nystatin Liq 500,000 UNIT/5 ML UDC SWISH-SWAL SCH ×4 (08:00→20:36)
[2018-05-13 08:18] LABS: Lymphocytes 13 % (9-44); Monocytes 1 % (0-8); Myelocytes 1 % (0-0)
[2018-05-13 08:19] LABS: Platelet Estimate Normal (Normal); Platelet Morphology Normal (Normal); Tear Drop Cells 1+; Toxic Granulation 1+
[2018-05-13] MEDS: Enoxaparin Inj 40 MG/0.4 ML Syringe SQ SCH (09:16)
[2018-05-13] MEDS: Lactobacillus Acidophilus/L. Spores Tablet PO SCH ×2 (09:16→21:17)
[2018-05-13] MEDS: Pantoprazole Sodium 20 MG DR Tablet PO SCH (09:16)
--- NOTE | 2018-05-13 09:25 | P.PN ---
Physical Exam Vital signs: Vital Signs 05/12/18 12:00 05/12/18 16:00 05/12/18 20:00 Temperature 99.5 F 100.2 F H 100.0 F H Pulse Rate 97 H 100 H 109 H Respiratory Rate 18 18 Blood Pressure 114/72 107/69 120/77 Pulse Oximetry 98 98 99 05/13/18 00:00 05/13/18 04:00 Temperature 98.8 F 98.2 F Pulse Rate 105 H 84 Respiratory Rate 18 18 Blood Pressure 105/76 118/69 Pulse Oximetry 99 100 Intake & Output 05/12/18 05/13/18 05/13/18 18:59 06:59 18:59 Intake Total 975 / 975 362.5 / 362.5 100 / 100 Output Total 800 / 800 1700 / 1700 Balance 175 / 175 -1337.5 / -1337.5 100 / 100 Weight 96 kg Intake: IV 615 / 615 362.5 / 362.5 100 / 100 Merrem Inj 2,000 MG In NS Inj 100 / 100 100 / 100 100 / 100 100 ML @ 200 mls/hr IV.SIG Q8H [facility] Rx#:[id number] Vancomycin Inj 1,250 MG In NS 262.5 / 262.5 Inj 250 ML @ 250 mls/hr IV.SIG Q8H [facility] Rx#:[id number] Vancomycin Inj 1,500 MG In NS 515 / 515 Inj 500 ML @ 250 mls/hr IV.SIG Q8H [facility] Rx#:[id number] Oral 360 / 360 Output: Urine 800 / 800 1700 / 1700 Other: Date of Last Bowel Movement 05/11/18 Narrative: Subjective Interval history: No nausea or vomiting today feels much better. No transfers improving. Plan for biopsy on Tuesday if ANC more than 1500 Patient denies any fever or chills. No cough. No urinary complaints. No rash. Physical Exam GENERAL: Young male, appears in nad. HEENT: Shaved head and alopecia. NECK: Supple no tender LAD or JVD. HEART: RRR no m/r/g. LUNGS: No cough. CTAB , no wheezes or crackles. ABDOMEN: +BS, soft, NT, ND. EXTREMITIES: No LE edema. NEURO: Awake and alert. PSYCH: Appropriate mood and affect. SKIN: No rash. Assessment and Plan 27 YOWM admitted 04/12/2018 due to generalized weakness. His hemoglobin was 3.3 and platelets 30k on admission. Hematology was consulted, and patient was ultimately diagnosed with AML and has undergone induction chemotherapy. His course has been complicated by neutropenic fever with persistent spikes in temperature. 1. Acute myeloid leukemia with pancytopenia - Confirmed with BM biopsy 04/13 - Heme/onc consulted and ff, completed nine days of induction chemo ( daunorubicin + cytarabine x 3 days followed by 6 days of cytarabine) - Per oncology: transfuse if Hb<7.0 or PLT<15K - Hb and platelets so far stable no need for transfusion at this time. Monitor and transfuse oer hem/onc indications - Transfused 1 unit of platelets and 1 units RBCs - Continue to monitor CBC closely - 04/28 bone marrow biopsy performed, flow cytometry consistent with residual AML Hem /onc following, patient is a candidate for BM transplant. cM consulted and ff for disability application. - Anticipate bone marrow biopsy and aspiration on Tuesday05/15/18 pending recovery of his counts. Needs to see oral surgery to evaluate his gums, would like to get a biopsy to rule out AML involvement which would complicate his clinical course further. 2. Neutropenic fever -Has been afebrile so far - White count continues to be low and patient pancytopenic - U/A and CXR unremarkable - Multiple blood cultures have been negative to date - ID following - Received Meropenem, vancomycin, and acyclovir, adjust per ID. Cefepime DCd as patient had rash. Stop antibiotics when the absolute neutrophil count is up to 1000 per ID recommendations. - No specific nidus of infection at this time -Blood cultures are negative to date - Continue to closely monitor 3. Diarrhea- Resolved - C. diff PCR negative - Started probiotic and diarrhea resolved. 4. Jaw pain - CT with no evidence of necrosis or other pathology 5. Mucositis - Continue Diflucan and Nystatin S&S - continue peridex . To follow up with dentist as OP - Needs to see oral surgery to evaluate his gums, would like to get a biopsy to rule out AML involvement which would complicate his clinical course further. 6. History of seizure - Seizure precautions 7. Hypokalemia - Potassium continues to be low but improved from prior days - Mg WNL - Increase to KCl PO 40 BID - Continue to monitor closely 8. Decreased appetite with hypokalemia/ Replace K and monitor. Check mag as well and replace. Continue MVT 9. Nausea: antiemetic as need. DVT prophylaxis: SCDs, encourage ambulation. Chemical anticoagulation C/I given severe thrombocytopenia Discharge Planning: neutropenic precautions Discussed with the patient, nurse DC plan: poss DC next week,when improved and cleared by hematology oncology and ID. CM also ff for DC plan Also patient with life threatening disease requiring eval for BM transplantation , needs disability application, CM ff Discussed with Dr Kerr oncology. Patient with life-threatening disease needs bone marrow transplant, long-term chemo patient cannot work for more than the one year, also with multiple hospitalizations and would require in the future multiple hospitalizations. He is disabled given his disease, the acute myeloid leukemia, and the treatments planned in the year coming. He needs the continued consolidation chemotherapy, that means additional cycles of chemotherapy looking similar to the one he just had, with prolonged hospitalization. In this manner he would not be able to work. Again, 100% of all remission post induction will progress and leukemia will recur without consolidation therapy. Consolidation therapy needs to continue or he will per hem/onc Dr Kerr. Follow up; Labs cbc, bmp, and also monitor for signs of infection. Stop antibiotics when the absolute neutrophil count is up to 1000 per ID recommendations. Anticipate bone marrow biopsy and aspiration on Tuesday05/15/18 pending recovery of his counts. Needs to see oral surgery to evaluate his gums, would like to get a biopsy to rule out AML involvement which would complicate his clinical course further Results - Labs CBC & Chem 7: 05/13/18 05:00 05/13/18 05:00 Laboratory Results - last 24 hr 05/12/18 05/13/18 05/13/18 13:00 05:00 05:00 WBC 1.3 L RBC 2.65 L Hgb 7.5 L Hct 22.0 L MCV 83.3 MCH 28.2 MCHC 33.8 RDW 13.6 Plt Count 279 MPV 8.0 Prelim Diff (Auto) Slide review pending Neut % (Auto) 77.8 H Lymph % (Auto) 19.0 [place] % (Auto) 2.8 Eos % (Auto) 0.0 Baso % (Auto) 0.4 Neut # (Auto) 1.0 L Lymph # (Auto) 0.2 L [place] # (Auto) 0.0 Eos # (Auto) 0.0 Baso # (Auto) 0.0 WBC Differential Manual diff final Seg Neuts % (Manual) 70 Band Neuts % (Manual) 15 H Lymphocytes % (Manual) 13 Monocytes % (Manual) 1 Myelocytes % (Man) 1 H Abs Neuts (Manual) 1.1 L Differential Comment . Toxic Granulation 1+ H Platelet Estimate Normal Platelet Morphology Normal Tear Drop Cells 1+ H Sodium 138 Potassium 3.5 Chloride 102 Carbon Dioxide 29.2 Anion Gap 7 BUN 3 L Creatinine 0.52 L Estimated GFR Greater than 89 Random Glucose 89 Calcium 8.4 L Vancomycin Trough 19.9 H - Procedures BM biopsy Leal catheter placement Echo 04/14/2018 The left ventricular systolic function is hyperdynamic with an estimated ejection fraction in the range of 65- 70%. Normal left ventricular size. Wall thickness is normal. No regional wall motion abnormalities are present. Trace mitral valve regurgitation. The left ventricular systolic function is hyperdynamic with an estimated ejection fraction in the range of 65- 70%. Normal left ventricular size. Wall thickness is normal. No regional wall motion abnormalities are present. Trace mitral valve regurgitation. The estimated pulmonary arterial pressure is 30.6 mmHg. BM BIOPSY 713 Assessment and Plan - Assessment (1) AML (acute myeloid leukemia) Code(s): C92.00 - Acute myeloblastic leukemia, not having achieved remission Status: Acute (2) Pancytopenia Code(s): D61.818 - Other pancytopenia Status: Acute (1) AML (acute myeloid leukemia) Qualifiers: Leukemia Active/Remission status: without remission Qualified Code(s): C92.00 - Acute myeloblastic leukemia, not having achieved remission
--- NOTE | 2018-05-13 10:03 | P.PNONC ---
Subjective Interval history: T-max overnight 100.2F. Patient has no complaints at this time. He is eager to be able to go home. He is aware of the potential bone marrow biopsy on Tuesday given improvement in his blood counts. Objective Vital Signs/Intake & Output: Vital Signs 05/12/18 12:00 05/12/18 16:00 05/12/18 20:00 Temperature 99.5 F 100.2 F H 100.0 F H Pulse Rate 97 H 100 H 109 H Respiratory Rate 18 18 Blood Pressure 114/72 107/69 120/77 Pulse Oximetry 98 98 99 05/13/18 00:00 05/13/18 04:00 Temperature 98.8 F 98.2 F Pulse Rate 105 H 84 Respiratory Rate 18 18 Blood Pressure 105/76 118/69 Pulse Oximetry 99 100 Intake & Output 05/12/18 05/13/18 05/13/18 18:59 06:59 18:59 Intake Total 975 / 975 362.5 / 362.5 100 / 100 Output Total 800 / 800 1700 / 1700 Balance 175 / 175 -1337.5 / -1337.5 100 / 100 Weight 96 kg Intake: IV 615 / 615 362.5 / 362.5 100 / 100 Merrem Inj 2,000 MG In NS Inj 100 / 100 100 / 100 100 / 100 100 ML @ 200 mls/hr IV.SIG Q8H [facility] Rx#:[id number] Vancomycin Inj 1,250 MG In NS 262.5 / 262.5 Inj 250 ML @ 250 mls/hr IV.SIG Q8H [facility] Rx#:[id number] Vancomycin Inj 1,500 MG In NS 515 / 515 Inj 500 ML @ 250 mls/hr IV.SIG Q8H [facility] Rx#:[id number] Oral 360 / 360 Output: Urine 800 / 800 1700 / 1700 Other: Date of Last Bowel Movement 05/11/18 Result Diagrams: 05/13/18 05:00 05/13/18 05:00 Laboratory Results: Laboratory Results - last 24 hr 05/12/18 05/13/18 05/13/18 13:00 05:00 05:00 WBC 1.3 L RBC 2.65 L Hgb 7.5 L Hct 22.0 L MCV 83.3 MCH 28.2 MCHC 33.8 RDW 13.6 Plt Count 279 MPV 8.0 Prelim Diff (Auto) Slide review pending Neut % (Auto) 77.8 H Lymph % (Auto) 19.0 [place] % (Auto) 2.8 Eos % (Auto) 0.0 Baso % (Auto) 0.4 Neut # (Auto) 1.0 L Lymph # (Auto) 0.2 L [place] # (Auto) 0.0 Eos # (Auto) 0.0 Baso # (Auto) 0.0 WBC Differential Manual diff final Seg Neuts % (Manual) 70 Band Neuts % (Manual) 15 H Lymphocytes % (Manual) 13 Monocytes % (Manual) 1 Myelocytes % (Man) 1 H Abs Neuts (Manual) 1.1 L Differential Comment . Toxic Granulation 1+ H Platelet Estimate Normal Platelet Morphology Normal Tear Drop Cells 1+ H Sodium 138 Potassium 3.5 Chloride 102 Carbon Dioxide 29.2 Anion Gap 7 BUN 3 L Creatinine 0.52 L Estimated GFR Greater than 89 Random Glucose 89 Calcium 8.4 L Vancomycin Trough 19.9 H Culture Results: Microbiology 05/04/18 23:53 Aerobic Blood Culture - Final Blood - Peripheral No growth in 5 days Anaerobic Blood Culture - Final No growth in 5 days Medications: Active Medications Generic Name Dose Route Start Last Admin Trade Name Freq PRN Reason Stop Dose Admin Acetaminophen 650 mg 05/01/18 13:55 05/01/18 14:07 Tylenol PO 650 mg Q4H PRN Administration BLOOD PRODUCT TRANSFUSION Hydrocodone Bitart/Acetaminophen 1 tab 04/23/18 11:51 05/12/18 21:38 [place] 7.5/325 PO 1 tab Q6H PRN Administration PAIN SCALE 6 TO 10 Acyclovir 400 mg 04/24/18 22:00 05/13/18 05:10 Zovirax PO 400 mg Q8HR [facility] Administration Chlorhexidine Gluconate 15 ml 04/23/18 21:00 05/12/18 21:39 Peridex 0.12% Liq SWISH-SPIT 15 ml BID [facility] Administration Diphenhydramine HCl 25 mg 05/01/18 13:54 05/04/18 09:56 Benadryl PO 25 mg Q4H PRN Administration BLOOD PRODUCT TRANSFUSION Enoxaparin Sodium 40 mg 05/09/18 09:00 05/13/18 09:16 Lovenox Inj SQ 40 mg DAILY [facility] Administration Heparin Sodium (Porcine) 0 unit 04/16/18 00:00 04/26/18 00:44 Heparin Central Flush IV.FLUSH 200 unit PRN PRN Administration Flush each lumen Heparin Sodium (Porcine) 0 unit 04/16/18 09:00 05/12/18 09:23 Heparin Central Flush IV.FLUSH 500 unit DAILY [facility] Administration Vancomycin HCl 1,250 mg/ 262.5 mls @ 250 mls/hr 05/13/18 00:00 05/13/18 09:24 Sodium Chloride IV.SIG 250 mls/hr Q8H [facility] Administration Micafungin Sodium 150 mg/ 100 mls @ 100 mls/hr 04/30/18 18:00 05/12/18 20:00 Sodium Chloride IV.SIG 0 mls/hr Q24H [facility] Infusion Meropenem 2,000 mg/ Sodium 100 mls @ 200 mls/hr 05/06/18 20:00 05/13/18 08:06 Chloride IV.SIG Infused Q8H [facility] Infusion Lactobacillus Acidophilus 1 tab 05/06/18 21:00 05/13/18 09:16 Lactinex PO 1 tab BID [facility] Administration Lidocaine HCl 15 ml 04/23/18 10:00 05/03/18 14:07 Xylocaine 2% Viscous SWISH-SPIT 15 ml Q4H PRN Administration PAIN SCALE 6 TO 10 Lorazepam 0.5 mg 05/09/18 08:16 05/12/18 23:07 Ativan PO 0.5 mg Q6H PRN Administration ANXIETY Miscellaneous Information 1 each 04/16/18 00:00 04/16/18 13:22 Mis Nursing Information OTHER Not Given [id number] [facility] Morphine Sulfate 2 mg 04/16/18 00:00 04/23/18 12:56 Morphine Inj IV.PUSH 2 mg Q2H PRN Administration PAIN SCALE 6 TO 10 Multivitamins 1 tab 05/03/18 09:00 05/13/18 09:16 Theragran PO 1 tab DAILY [facility] Administration Nystatin 5 ml 05/05/18 13:00 05/12/18 21:39 Mycostatin Liq SWISH-SWAL Not Given QID [facility] Ondansetron HCl 4 mg 04/16/18 00:00 04/23/18 10:26 Zofran Inj IV.PUSH 4 mg Q6H PRN Administration NAUSEA OR VOMITING Pantoprazole Sodium 20 mg 05/03/18 09:00 05/13/18 09:16 Protonix PO 20 mg DAILY [facility] Administration Prochlorperazine Edisylate 5 mg 04/26/18 08:51 05/03/18 04:26 Compazine Inj IV.PUSH 5 mg Q6H PRN Administration MILD NAUSEA Sodium Chloride 0 ml 04/16/18 09:00 05/12/18 09:23 Ns Flush IV.FLUSH 10 ml DAILY [facility] Administration Sodium Chloride 0 ml 04/16/18 00:00 04/27/18 09:15 Ns Flush IV.FLUSH 5 ml PRN PRN Administration FLUSH AFTER USING IV ACCESS Objective Remarks: GENERAL: Young male patient, lying in bed, in no acute distress. Sleeping on approach, awakens easily to voice. SKIN: warm and dry. Leal catheter/right chest wall, no redness/swelling/ drainage. HEAD: Normocephalic. EYES: No scleral icterus. No injection or drainage. [place]. MOUTH: [place], moist mucous membranes. Gums swelling, with some improvement, remains swollen. Plaque buildup on guidelines. NECK: Supple, trachea midline. CARDIOVASCULAR: Regular rate and rhythm without murmurs. RESPIRATORY: Anterior breath sounds clear & equal bilaterally. No accessory muscle use. GASTROINTESTINAL: Abdomen soft, non-tender, nondistended. EXTREMITIES: No cyanosis, or edema. MUSCULOSKELETAL: Adequate muscle tone. NEUROLOGICAL: No obvious focal deficit. Alert and oriented 's 3. PSYCHIATRIC: Appropriate mood and affect; insight and judgment normal. Assessment/Plan - Plan 04/15 D1 Daunorubicin + Cytarabine 04/16: D2 Daunorubicin + Cytarabine 04/17: D3 Daunorubicin + Cytarabine 04/18: D4 Cytarabine. Afebrile. Tolerating chemo well. 04/19: D5 Cytarabine continue 04/20: D6 Cytarabine continues. 04/21: D7 Cytarabine continues. Afebrile, tolerating well. 04/22: D8 cytarabine. Afebrile, platelet transfusion this a.m. Now with jaw pain. 04/23: D9 Cytarabine completed overnight. Afebrile. Continued jaw pain. Diarrhea 3 x's/day, +n/v x's 1, + insomnia. 04/24: D10 febrile, T-max 102. Blood cultures pending. Currently on cefepime. ID and ENT consult. 04/25: D11 febrile, T-max 102.5F. Blood cultures no growth 2 days. Antibiotics per ID. ENT deferred consult to oral maxillofacial surgery. 04/28: D14 febrile, T-max 100.6F. Blood cultures no growth and 4 days. Current cultures pending. Day 14 bone marrow biopsy scheduled for today. 04/29: D15 febrile, T-max 101.6F. Blood cultures with no growth. Bone marrow biopsy completed yesterday, patient tolerated well. Results pending. 04/30: D16 febrile, T-max 102.1 F. Blood cultures continue with no growth. Bone marrow biopsy pending. 05/01: D17 febrile, T-max 102.1F. Blood cultures continue with no growth. Bone marrow biopsy resulted, pending review with pathology. 05/02: D18 febrile, T-max 102.3F. Blood cultures with no growth. 05/05: D21 febrile, T-max 103.2F. Blood cultures with no growth. 05/06: D22 T-max 100.1F. Blood cultures with no growth. Continues on antibiotics per ID. 05/07: D23 afebrile. Blood cultures with no growth. Pancytopenia improving. 05/08: D24 afebrile. Blood cultures with no growth. Hgb 8.3, Platelets 68k, Abs [place] 300. 05/12: D28 T-max 100.1F. Blood cultures remain with no growth. Pancytopenia continues to improve. Absolute neutrophils 900. 05/13: D29 T-max 100.2F. Blood cultures remain with no growth. Hemoglobin 7.5 today. Absolute neutrophils 1100. 1. Neutropenia improving. ANC 1100 today. We will remove his neutropenic precautions and DC the antibiotics. 2. Thrombocytopenia recovered. Encouraged to ambulate. Continue DVT prophylaxis. 3. Swollen gums, erosive gingivitis-persists. Continue mouth care with Peridex. Patient with pending dental appointment, upon discharge. Gingivitis previously predates diagnosis of acute myeloid leukemia. Patient has a scheduled outpatient dental appointment for evaluation. 4. Anemia, asymptomatic, hemoglobin 7.5 today. No transfusion needed, we will continue to monitor. 5. Continue supportive care. - Attending Statement The exam, history, and the medical decision-making described in the above note were completed with the assistance of the mid-level provider. I reviewed and agree with the findings presented. I attest that I had a [id number] encounter with the patient on the same day, and personally performed and documented my assessment and findings in the medical record. Acute myeloid leukemia, day 28 status post daunorubicin and cytarabine induction chemotherapy. Ms. Hall was seen and examined earlier today. At the time I saw him he was resting comfortably in bed, he later saw him walking the hallways. Low-grade temperature was noted overnight, his counts continue to improve. Antibiotics have been discontinued; meropenem and micafungin as well as vancomycin. All blood cultures are negative. Subjectively; he reports feeling tired and tells me he does not rest very well at nighttime. Physical exam was performed independently. Continue ongoing care. Monitor closely for fever recurrence. Plan for day 30 bone marrow biopsy on 05/15/2018.
[2018-05-13] MEDS: Heparin Central Flush 100 UNIT/ML 5 ML Vial IV.FLUSH SCH (12:00)
[2018-05-13] MEDS: Chlorhexidine Gluconate 0.12% Liq 15 ML UDC SWISH-SPIT SCH ×2 (21:18)
[2018-05-13] MEDS: LORazepam 0.5 MG Tablet PO PRN (22:47)
[2018-05-14] MEDS: Acyclovir 200 MG Capsule PO SCH ×3 (05:30→21:43)
[2018-05-14 05:45] LABS: Baso % (Auto) 1.2 % (0.0-2.0); Eos % (Auto) 0.1 % (0.0-4.0); Hematocrit 22.2 % (39.0-51.0); Hemoglobin 7.7 gm/dL (13.0-17.0); Lymph # (Auto) 0.4 th/mm3 (1.0-4.8); Lymph % (Auto) 25.1 % (9.0-44.0); Mean Corpuscular HGB Conc 34.6 % (32.0-36.0); Mean Corpuscular Hemoglobin 28.5 pg (27.0-34.0); Mean Corpuscular Volume 82.5 fL (80.0-100.0); Mean Platelet Volume 7.7 fL (7.0-11.0); Mono # (Auto) 0.1 th/mm3 (0.0-0.9); Mono % (Auto) 4.3 % (0.0-8.0); Neut % (Auto) 69.3 % (16.0-70.0); Platelet Count 349 th/mm3 (150-450); Red Blood Count 2.69 mil/mm3 (4.50-5.90); Red Cell Distribution Width 13.9 % (11.6-17.2); White Blood Count 1.5 th/mm3 (4.0-11.0)
[2018-05-14 05:56] LABS: Activated Partial Thrombo Time 36.1 sec (24.3-30.1); INR 1.4 Ratio; Prothrombin Time 13.7 sec (9.8-11.6)
[2018-05-14 06:28] LABS: Albumin 2.6 g/dL (3.4-5.0); Anion Gap 7 meq/L (5-15); Aspartate Aminotransferase 55 U/L (15-37); Blood Urea Nitrogen 3 mg/dL (7-18); Calcium 8.8 mg/dL (8.5-10.1); Carbon Dioxide 31.3 meq/L (21.0-32.0); Chloride 100 meq/L (98-107); Glomerular Filtration Rate Greater Than 89 mL/min (>89); Glucose,Random 93 mg/dL (74-106); Potassium 3.5 meq/L (3.5-5.1); Sodium 138 meq/L (136-145)
[2018-05-14 06:30] LABS: Alanine Aminotransferase 88 U/L (12-78)
[2018-05-14 06:32] LABS: Alkaline Phosphatase 120 U/L (45-117); Total Protein 7.2 g/dL (6.4-8.2)
[2018-05-14 07:29] LABS: Lymphocytes 25 % (9-44); Metamyelocytes 1 % (0-1); Monocytes 4 % (0-8); Myelocytes 1 % (0-0); Platelet Estimate Normal (Normal); Platelet Morphology Normal (Normal); RBC Morphology Normal (Normal); Tallied Nucleated RBC 3 (0-0)
[2018-05-14] MEDS ORDERED: Pharmacy Ordered Lab Info OTHER ONE (07:45)
[2018-05-14] MEDS: Enoxaparin Inj 40 MG/0.4 ML Syringe SQ SCH (08:24)
[2018-05-14] MEDS: Pantoprazole Sodium 20 MG DR Tablet PO SCH (08:25)
[2018-05-14] MEDS: Heparin Central Flush 100 UNIT/ML 5 ML Vial IV.FLUSH SCH (08:25)
[2018-05-14] MEDS: Lactobacillus Acidophilus/L. Spores Tablet PO SCH ×2 (08:25→21:43)
[2018-05-14] MEDS: Chlorhexidine Gluconate 0.12% Liq 15 ML UDC SWISH-SPIT SCH ×2 (08:25→21:43)
--- NOTE | 2018-05-14 11:30 | P.PNONC ---
Subjective Interval history: Afebrile, T-max 99.8F. Patient has no complaints at this time. He was sleeping on approach, awakens easily to voice. He denies any further episodes of diarrhea. Objective Vital Signs/Intake & Output: Vital Signs 05/13/18 16:00 05/13/18 20:00 05/14/18 00:00 Temperature 99.4 F 98.9 F 99.1 F Pulse Rate 104 H 102 H 85 Respiratory Rate 18 16 16 Blood Pressure 123/78 111/70 119/73 Pulse Oximetry 98 100 100 05/14/18 04:00 05/14/18 08:22 Temperature 98 F 98.2 F Pulse Rate 90 92 H Respiratory Rate 15 16 Blood Pressure 115/69 117/78 Pulse Oximetry 99 98 Intake & Output 05/13/18 05/14/18 05/14/18 18:59 06:59 18:59 Intake Total 2079 / 2079 Output Total 1974 Balance 105 / 105 Weight 105.5 kg Intake: IV 100 / 100 Merrem Inj 2,000 MG In NS Inj 100 / 100 100 ML @ 200 mls/hr IV.SIG Q8H [facility] Rx#:[id number] Oral 1979 Output: Urine 1974 Other: Date of Last Bowel Movement 05/12/18 # Bowel Movements 1 Result Diagrams: 05/14/18 05:30 05/14/18 05:30 Laboratory Results: Laboratory Results - last 24 hr 05/14/18 05/14/18 05/14/18 05:30 05:30 05:30 WBC 1.5 L RBC 2.69 L Hgb 7.7 L Hct 22.2 L MCV 82.5 MCH 28.5 MCHC 34.6 RDW 13.9 Plt Count 349 MPV 7.7 Prelim Diff (Auto) Slide review pending Neut % (Auto) 69.3 Lymph % (Auto) 25.1 [place] % (Auto) 4.3 Eos % (Auto) 0.1 Baso % (Auto) 1.2 Neut # (Auto) 1.0 L Lymph # (Auto) 0.4 L [place] # (Auto) 0.1 Eos # (Auto) 0.0 Baso # (Auto) 0.0 WBC Differential Manual diff final Seg Neuts % (Manual) 62 Band Neuts % (Manual) 4 Lymphocytes % (Manual) 25 Monocytes % (Manual) 4 Basophils % (Manual) 3 H Metamyelocytes % (Man) 1 Myelocytes % (Man) 1 H Abs Neuts (Manual) 1.0 L Nucleated RBCs/100 WBC 3 H Differential Comment . Platelet Estimate Normal Platelet Morphology Normal RBC Morphology Normal PT 13.7 H INR 1.4 APTT 36.1 H Sodium 138 Potassium 3.5 Chloride 100 Carbon Dioxide 31.3 Anion Gap 7 BUN 3 L Creatinine 0.61 Estimated GFR Greater than 89 Random Glucose 93 Calcium 8.8 Total Bilirubin 0.6 AST 55 H ALT 88 H Alkaline Phosphatase 120 H Total Protein 7.2 Albumin 2.6 L Medications: Active Medications Generic Name Dose Route Start Last Admin Trade Name Freq PRN Reason Stop Dose Admin Acetaminophen 650 mg 05/01/18 13:55 05/01/18 14:07 Tylenol PO 650 mg Q4H PRN Administration BLOOD PRODUCT TRANSFUSION Hydrocodone Bitart/Acetaminophen 1 tab 04/23/18 11:51 05/12/18 21:38 [place] 7.5/325 PO 1 tab Q6H PRN Administration PAIN SCALE 6 TO 10 Acyclovir 400 mg 04/24/18 22:00 05/14/18 05:30 Zovirax PO 400 mg Q8HR [facility] Administration Chlorhexidine Gluconate 15 ml 04/23/18 21:00 05/14/18 08:25 Peridex 0.12% Liq SWISH-SPIT 15 ml BID [facility] Administration Diphenhydramine HCl 25 mg 05/01/18 13:54 05/04/18 09:56 Benadryl PO 25 mg Q4H PRN Administration BLOOD PRODUCT TRANSFUSION Enoxaparin Sodium 40 mg 05/09/18 09:00 05/14/18 08:24 Lovenox Inj SQ 40 mg DAILY [facility] Administration Heparin Sodium (Porcine) 0 unit 04/16/18 00:00 04/26/18 00:44 Heparin Central Flush IV.FLUSH 200 unit PRN PRN Administration Flush each lumen Heparin Sodium (Porcine) 0 unit 04/16/18 09:00 05/14/18 08:25 Heparin Central Flush IV.FLUSH 500 unit DAILY [facility] Administration Lactobacillus Acidophilus 1 tab 05/06/18 21:00 05/14/18 08:25 Lactinex PO 1 tab BID [facility] Administration Lidocaine HCl 15 ml 04/23/18 10:00 05/03/18 14:07 Xylocaine 2% Viscous SWISH-SPIT 15 ml Q4H PRN Administration PAIN SCALE 6 TO 10 Lorazepam 0.5 mg 05/09/18 08:16 05/13/18 22:47 Ativan PO 0.5 mg Q6H PRN Administration ANXIETY Miscellaneous Information 1 each 04/16/18 00:00 04/16/18 13:22 Mis Nursing Information OTHER Not Given [id number] [facility] Morphine Sulfate 2 mg 04/16/18 00:00 04/23/18 12:56 Morphine Inj IV.PUSH 2 mg Q2H PRN Administration PAIN SCALE 6 TO 10 Multivitamins 1 tab 05/03/18 09:00 05/14/18 08:25 Theragran PO 1 tab DAILY [facility] Administration Nystatin 5 ml 05/05/18 13:00 05/13/18 20:36 Mycostatin Liq SWISH-SWAL Not Given QID [facility] Ondansetron HCl 4 mg 04/16/18 00:00 04/23/18 10:26 Zofran Inj IV.PUSH 4 mg Q6H PRN Administration NAUSEA OR VOMITING Pantoprazole Sodium 20 mg 05/03/18 09:00 05/14/18 08:25 Protonix PO 20 mg DAILY [facility] Administration Prochlorperazine Edisylate 5 mg 04/26/18 08:51 05/03/18 04:26 Compazine Inj IV.PUSH 5 mg Q6H PRN Administration MILD NAUSEA Sodium Chloride 0 ml 04/16/18 09:00 05/13/18 12:00 Ns Flush IV.FLUSH 2 ml DAILY [facility] Administration Sodium Chloride 0 ml 04/16/18 00:00 04/27/18 09:15 Ns Flush IV.FLUSH 5 ml PRN PRN Administration FLUSH AFTER USING IV ACCESS Objective Remarks: GENERAL: Young male patient, lying in bed, in no acute distress. Sleeping on approach, awakens easily to voice. SKIN: Leal catheter/right chest wall, no redness/swelling/drainage. Warm and dry. HEAD: Normocephalic. EYES: No scleral icterus. No injection or drainage. [place]. MOUTH: [place], moist mucous membranes. Gums swelling, with some improvement, remains swollen. Heavy plaque buildup to gumlines. NECK: Supple, trachea midline. CARDIOVASCULAR: Regular rate and rhythm without murmurs. RESPIRATORY: Anterior breath sounds clear & equal bilaterally. No accessory muscle use. GASTROINTESTINAL: Abdomen soft, non-tender, nondistended. EXTREMITIES: No cyanosis, or edema. MUSCULOSKELETAL: Adequate muscle tone. NEUROLOGICAL: No obvious focal deficit. Alert and oriented 's 3. PSYCHIATRIC: Appropriate mood and affect; insight and judgment normal. Assessment/Plan - Plan 04/15 D1 Daunorubicin + Cytarabine 04/16: D2 Daunorubicin + Cytarabine 04/17: D3 Daunorubicin + Cytarabine 04/18: D4 Cytarabine. Afebrile. Tolerating chemo well. 04/19: D5 Cytarabine continue 04/20: D6 Cytarabine continues. 04/21: D7 Cytarabine continues. Afebrile, tolerating well. 04/22: D8 cytarabine. Afebrile, platelet transfusion this a.m. Now with jaw pain. 04/23: D9 Cytarabine completed overnight. Afebrile. Continued jaw pain. Diarrhea 3 x's/day, +n/v x's 1, + insomnia. 04/24: D10 febrile, T-max 102. Blood cultures pending. Currently on cefepime. ID and ENT consult. 04/25: D11 febrile, T-max 102.5F. Blood cultures no growth 2 days. Antibiotics per ID. ENT deferred consult to oral maxillofacial surgery. 04/28: D14 febrile, T-max 100.6F. Blood cultures no growth and 4 days. Current cultures pending. Day 14 bone marrow biopsy scheduled for today. 04/29: D15 febrile, T-max 101.6F. Blood cultures with no growth. Bone marrow biopsy completed yesterday, patient tolerated well. Results pending. 04/30: D16 febrile, T-max 102.1 F. Blood cultures continue with no growth. Bone marrow biopsy pending. 05/01: D17 febrile, T-max 102.1F. Blood cultures continue with no growth. Bone marrow biopsy resulted, pending review with pathology. 05/02: D18 febrile, T-max 102.3F. Blood cultures with no growth. 05/05: D21 febrile, T-max 103.2F. Blood cultures with no growth. 05/06: D2 T-max 100.1F. Blood cultures with no growth. Continues on antibiotics per ID. 05/07: D23 afebrile. Blood cultures with no growth. Pancytopenia improving. 05/08: D24 afebrile. Blood cultures with no growth. Hgb 8.3, Platelets 68k, Abs [place] 300. 05/12: D28 T-max 100.1F. Blood cultures remain with no growth. Pancytopenia continues to improve. Absolute neutrophils 900. 05/13: D29 T-max 100.2F. Blood cultures remain with no growth. Hemoglobin 7.5 today. Absolute neutrophils 1100. 05/14: D30 T-max 99 8F. Hemoglobin 7.7, platelets 340 9K, ANC 1000. 1. Plan for bone marrow biopsy day 31 tomorrow. 2. Thrombocytopenia recovered. Encouraged to ambulate. Continue DVT prophylaxis. 3. Neutropenia, ANC 1000 today. Antibiotics were discontinued yesterday. 4. Anemia, asymptomatic, hemoglobin 7.7 today. No transfusion needed, we will continue to monitor. 5. Swollen gums, erosive gingivitis-persists. Continue mouth care with Peridex. Patient with pending dental appointment, upon discharge. Gingivitis previously predates diagnosis of acute myeloid leukemia. Patient has a scheduled outpatient dental appointment for evaluation. - Attending Statement The exam, history, and the medical decision-making described in the above note were completed with the assistance of the mid-level provider. I reviewed and agree with the findings presented. I attest that I had a [id number] encounter with the patient on the same day, and personally performed and documented my assessment and findings in the medical record. Mr. Hall was seen and examined, vital signs, labs, medications were reviewed. Subjectively; patient reports feeling well, he was able to go outside the building and sit in the patio, he got some fresh air and tells me he feels very good about that. He denies fevers or chills, he denies diarrhea, denies skin sores or ulceration. He tells me his gums feel as if they are getting better. He is eager to undergo bone marrow biopsy as soon as possible so we can go home. He tells me he will be moving back in with his parents once he leaves the hospital. Recommendations: Acute myeloid leukemia, status post induction systemic therapy. Obtain CT- guided bone marrow biopsy tomorrow. He should be able to go home after that but I will ultimately defer to Dr. Kerr. Once he is discharged he will likely require labs once or twice a week and close outpatient follow-up.
--- NOTE | 2018-05-14 11:30 | P.PNIM ---
Subjective Interval history: 05-13 No nausea or vomiting today feels much better. No transfers improving. Plan for biopsy on Tuesday if ANC more than 1500 Patient denies any fever or chills. No cough. No urinary complaints. No rash. 05-14 NO NEW ISSUES AT THIS TIME. FOR BM BIOPSY TOMORROW denies any mouth pain or sob, or chest pain No fevers since yesterday A.m. labs Discussed with hematology oncology and RN and insurance case managerfacility manager Exam Vital signs: Vital Signs 05/13/18 16:00 05/13/18 20:00 05/14/18 00:00 Temperature 99.4 F 98.9 F 99.1 F Pulse Rate 104 H 102 H 85 Respiratory Rate 18 16 16 Blood Pressure 123/78 111/70 119/73 Pulse Oximetry 98 100 100 05/14/18 04:00 05/14/18 08:22 Temperature 98 F 98.2 F Pulse Rate 90 92 H Respiratory Rate 15 16 Blood Pressure 115/69 117/78 Pulse Oximetry 99 98 Intake & Output 05/13/18 05/14/18 05/14/18 18:59 06:59 18:59 Intake Total 2079 Output Total 1974 Balance 105 / 105 Weight 105.5 kg Intake: IV 100 / 100 Merrem Inj 2,000 MG In NS Inj 100 / 100 100 ML @ 200 mls/hr IV.SIG Q8H [facility] Rx#:[id number] Oral 1979 Output: Urine 1974 Other: Date of Last Bowel Movement 05/12/18 # Bowel Movements 1 Narrative: GENERAL: Awake alert and oriented 3 talkative and cooperative. Somewhat lethargic today SKIN: Warm and dry. Has shaved his head due to the alopecia from the chemo HEAD: Atraumatic. Normocephalic. EYES: Pupils equal and round. No scleral icterus. No injection or drainage. ENT: No nasal bleeding or discharge. Mucous membranes pink and moist. NECK: Trachea midline. No JVD. CARDIOVASCULAR: Regular rate and rhythm. S1-S2 no S3 or S4 RESPIRATORY: No accessory muscle use. Clear to auscultation. Breath sounds equal bilaterally. GASTROINTESTINAL: Abdomen soft, non-tender, nondistended. Hepatic and splenic margins not palpable. MUSCULOSKELETAL: Extremities without clubbing, cyanosis, or edema. No obvious deformities. NEUROLOGICAL: Awake and alert. No obvious cranial nerve deficits. Motor grossly within normal limits. Five out of 5 muscle strength in the arms and legs. Normal speech. PSYCHIATRIC: Appropriate mood and affect; insight and judgment normal. Results - Labs CBC & Chem 7: 05/14/18 05:30 05/14/18 05:30 Laboratory Results - last 24 hr 05/14/18 05/14/18 05/14/18 05:30 05:30 05:30 WBC 1.5 L RBC 2.69 L Hgb 7.7 L Hct 22.2 L MCV 82.5 MCH 28.5 MCHC 34.6 RDW 13.9 Plt Count 349 MPV 7.7 Prelim Diff (Auto) Slide review pending Neut % (Auto) 69.3 Lymph % (Auto) 25.1 [place] % (Auto) 4.3 Eos % (Auto) 0.1 Baso % (Auto) 1.2 Neut # (Auto) 1.0 L Lymph # (Auto) 0.4 L [place] # (Auto) 0.1 Eos # (Auto) 0.0 Baso # (Auto) 0.0 WBC Differential Manual diff final Seg Neuts % (Manual) 62 Band Neuts % (Manual) 4 Lymphocytes % (Manual) 25 Monocytes % (Manual) 4 Basophils % (Manual) 3 H Metamyelocytes % (Man) 1 Myelocytes % (Man) 1 H Abs Neuts (Manual) 1.0 L Nucleated RBCs/100 WBC 3 H Differential Comment . Platelet Estimate Normal Platelet Morphology Normal RBC Morphology Normal PT 13.7 H INR 1.4 APTT 36.1 H Sodium 138 Potassium 3.5 Chloride 100 Carbon Dioxide 31.3 Anion Gap 7 BUN 3 L Creatinine 0.61 Estimated GFR Greater than 89 Random Glucose 93 Calcium 8.8 Total Bilirubin 0.6 AST 55 H ALT 88 H Alkaline Phosphatase 120 H Total Protein 7.2 Albumin 2.6 L - Imaging Face CT 04/23/18 00:00 CONCLUSION: 1. No acute fracture. 2. No soft tissue abnormality. Chest X-Ray 04/23/18 21:13 CONCLUSION: Right central line in superior vena cava. No active disease. Abdomen/Pelvis CT 04/26/18 00:00 CONCLUSION: 1. Essentially negative CT of the abdomen and pelvis. There is a proximal transverse colon appears somewhat thickened but this is likely secondary to lack of distention versus less likely colitis. Bone Marrow Biopsy w/ CT 04/28/18 08:00 CONCLUSION: 1. Uncomplicated CT guided bone marrow aspirate. 2. Uncomplicated CT guided bone marrow biopsy. - Procedures BM biopsy Leal catheter placement Echo 04/14/2018 The left ventricular systolic function is hyperdynamic with an estimated ejection fraction in the range of 65- 70%. Normal left ventricular size. Wall thickness is normal. No regional wall motion abnormalities are present. Trace mitral valve regurgitation. The left ventricular systolic function is hyperdynamic with an estimated ejection fraction in the range of 65- 70%. Normal left ventricular size. Wall thickness is normal. No regional wall motion abnormalities are present. Trace mitral valve regurgitation. The estimated pulmonary arterial pressure is 30.6 mmHg. BM BIOPSY 04-28 Assessment and Plan - Assessment (1) AML (acute myeloid leukemia) Code(s): C92.00 - Acute myeloblastic leukemia, not having achieved remission Status: Acute (2) Pancytopenia Code(s): D61.818 - Other pancytopenia Status: Acute - Plan 27 YOWM admitted 04/12/2018 due to generalized weakness. His hemoglobin was 3.3 and platelets 30k on admission. Hematology was consulted, and patient was ultimately diagnosed with AML and has undergone induction chemotherapy. His course has been complicated by neutropenic fever with persistent spikes in temperature. 1. Acute myeloid leukemia with pancytopenia - Confirmed with BM biopsy 04/13 - Heme/onc consulted and ff, completed nine days of induction chemo ( daunorubicin + cytarabine x 3 days followed by 6 days of cytarabine) - Per oncology: transfuse if Hb<7.0 or PLT<15K - Hb and platelets so far stable no need for transfusion at this time. Monitor and transfuse oer hem/onc indications - Transfused 1 unit of platelets and 1 units RBCs - Continue to monitor CBC closely - 04/28 bone marrow biopsy performed, flow cytometry consistent with residual AML Hem /onc following, patient is a candidate for BM transplant. cM consulted and ff for disability application. - Anticipate bone marrow biopsy and aspiration on Tuesday05/15/18 pending recovery of his counts. Needs to see oral surgery to evaluate his gums, would like to get a biopsy to rule out AML involvement which would complicate his clinical course further. 2. Neutropenic fever -Has been afebrile so far - White count continues to be low and patient pancytopenic - U/A and CXR unremarkable - Multiple blood cultures have been negative to date - ID following - Received Meropenem, vancomycin, and acyclovir, adjust per ID. Cefepime DCd as patient had rash. Stop antibiotics when the absolute neutrophil count is up to 1000 per ID recommendations. - No specific nidus of infection at this time -Blood cultures are negative to date - Continue to closely monitor 3. Diarrhea- Resolved - C. diff PCR negative - Started probiotic and diarrhea resolved. 4. Jaw pain - CT with no evidence of necrosis or other pathology--OUT PATIENT FOLLOW UPS 5. Mucositis - Continue Diflucan and Nystatin S&S - continue peridex . To follow up with dentist as OP - Needs to see oral surgery to evaluate his gums, would like to get a biopsy to rule out AML involvement which would complicate his clinical course further. OUTPT FOLLOW UPS 6. History of seizure - Seizure precautions 7. Hypokalemia - Potassium continues to be low but improved from prior days - Mg WNL - Increase to KCl PO 40 BID - Continue to monitor closely 8. Decreased appetite with hypokalemia/ Replace K and monitor. Check mag as well and replace. Continue MVT 9. Nausea: antiemetic as need. DVT prophylaxis: SCDs, encourage ambulation. Chemical anticoagulation C/I given severe thrombocytopenia Discharge Planning: neutropenic precautions Discussed with the patient, nurse DC plan: poss DC next week,when improved and cleared by hematology oncology and ID. CM also ff for DC plan Also patient with life threatening disease requiring eval for BM transplantation , needs disability application, CM ff Discussed with Dr Kerr oncology. Patient with life-threatening disease needs bone marrow transplant, long-term chemo patient cannot work for more than the one year, also with multiple hospitalizations and would require in the future multiple hospitalizations. He is disabled given his disease, the acute myeloid leukemia, and the treatments planned in the year coming. He needs the continued consolidation chemotherapy, that means additional cycles of chemotherapy looking similar to the one he just had, with prolonged hospitalization. In this manner he would not be able to work. Again, 100% of all remission post induction will progress and leukemia will recur without consolidation therapy. Consolidation therapy needs to continue or he will per hem/onc Dr Kerr. Follow up; Labs cbc, bmp, and also monitor for signs of infection. Stop antibiotics when the absolute neutrophil count is up to 1000 per ID recommendations. Anticipate bone marrow biopsy and aspiration on Tuesday05/15/18 pending recovery of his counts. Needs to see oral surgery to evaluate his gums, would like to get a biopsy to rule out AML involvement which would complicate his clinical course further Code Status: FULL CODE Discussed Condition With: RN AND PT AND ONCOLOGY AND CM Discharge Planning: Pending clearance by all (1) AML (acute myeloid leukemia) Qualifiers: Leukemia Active/Remission status: without remission Qualified Code(s): C92.00 - Acute myeloblastic leukemia, not having achieved remission
[2018-05-14] MEDS: Nystatin Liq 500,000 UNIT/5 ML UDC SWISH-SWAL SCH ×2 (15:56→21:44)
[2018-05-14] MEDS: LORazepam 0.5 MG Tablet PO PRN (23:06)
[2018-05-15] MEDS: Acyclovir 200 MG Capsule PO SCH ×2 (05:42→15:41)
[2018-05-15 05:59] LABS: Baso % (Auto) 0.8 % (0.0-2.0); Eos % (Auto) 0.2 % (0.0-4.0); Hematocrit 22.4 % (39.0-51.0); Hemoglobin 7.7 gm/dL (13.0-17.0); Lymph # (Auto) 0.4 th/mm3 (1.0-4.8); Lymph % (Auto) 24.7 % (9.0-44.0); Mean Corpuscular HGB Conc 34.7 % (32.0-36.0); Mean Corpuscular Hemoglobin 28.6 pg (27.0-34.0); Mean Corpuscular Volume 82.5 fL (80.0-100.0); Mean Platelet Volume 7.9 fL (7.0-11.0); Mono # (Auto) 0.1 th/mm3 (0.0-0.9); Mono % (Auto) 5.1 % (0.0-8.0); Neut # (Auto) 1.2 th/mm3 (1.8-7.7); Neut % (Auto) 69.2 % (16.0-70.0); Platelet Count 380 th/mm3 (150-450); Red Blood Count 2.71 mil/mm3 (4.50-5.90); Red Cell Distribution Width 13.6 % (11.6-17.2); White Blood Count 1.7 th/mm3 (4.0-11.0)
[2018-05-15 06:11] LABS: Activated Partial Thrombo Time 27.9 sec (24.3-30.1); INR 1.3 Ratio; Prothrombin Time 13.1 sec (9.8-11.6)
[2018-05-15 06:26] LABS: Alanine Aminotransferase 102 U/L (12-78); Albumin 2.8 g/dL (3.4-5.0); Anion Gap 6 meq/L (5-15); Aspartate Aminotransferase 63 U/L (15-37); Blood Urea Nitrogen 4 mg/dL (7-18); Calcium 8.6 mg/dL (8.5-10.1); Carbon Dioxide 32.4 meq/L (21.0-32.0); Chloride 102 meq/L (98-107); Glomerular Filtration Rate Greater Than 89 mL/min (>89); Glucose,Random 92 mg/dL (74-106); Magnesium 2.2 mg/dL (1.5-2.5); Phosphorus 2.8 mg/dL (2.5-4.9); Potassium 3.5 meq/L (3.5-5.1); Sodium 140 meq/L (136-145)
[2018-05-15 06:29] LABS: Alkaline Phosphatase 116 U/L (45-117)
[2018-05-15 07:34] LABS: Lymphocytes 18 % (9-44); Monocytes 3 % (0-8); Myelocytes 1 % (0-0); Platelet Estimate Normal (Normal); Platelet Morphology Normal (Normal); Tallied Nucleated RBC 1 (0-0); Toxic Granulation 1+
[2018-05-15] MEDS: Pantoprazole Sodium 20 MG DR Tablet PO SCH (08:47)
[2018-05-15] MEDS: Heparin Central Flush 100 UNIT/ML 5 ML Vial IV.FLUSH SCH (08:47)
[2018-05-15] MEDS: Lactobacillus Acidophilus/L. Spores Tablet PO SCH (08:47)
[2018-05-15] MEDS: Chlorhexidine Gluconate 0.12% Liq 15 ML UDC SWISH-SPIT SCH (08:47)
[2018-05-15] MEDS: Nystatin Liq 500,000 UNIT/5 ML UDC SWISH-SWAL SCH ×2 (08:47→15:41)
--- NOTE | 2018-05-15 09:55 | P.PNONC ---
Subjective Interval history: Afebrile. Patient has no new complaints at this time. He is awaiting bone marrow biopsy #3. He will be discharged home today following this biopsy. Objective Vital Signs/Intake & Output: Vital Signs 05/14/18 11:54 05/14/18 16:00 05/14/18 20:00 Temperature 98.2 F 98.5 F 98.6 F Pulse Rate 88 99 H 93 H Respiratory Rate 16 16 16 Blood Pressure 114/63 115/63 110/63 Pulse Oximetry 99 99 100 05/15/18 00:00 05/15/18 04:00 05/15/18 08:42 Temperature 98.2 F 98.2 F 98.6 F Pulse Rate 93 H 87 101 H Respiratory Rate 16 15 18 Blood Pressure 114/71 117/74 114/75 Pulse Oximetry 100 99 99 Intake & Output 05/14/18 05/15/18 05/15/18 18:59 06:59 18:59 Intake Total 1800 / 1800 1400 / 1400 Output Total 1575 / 1575 1250 / 1250 Balance 225 / 225 150 / 150 Weight 96 kg Intake: Oral 1800 / 1800 1400 / 1400 Output: Urine 1575 / 1575 1250 / 1250 Other: Date of Last Bowel Movement 05/12/18 05/12/18 Result Diagrams: 05/15/18 05:40 05/15/18 05:40 Laboratory Results: Laboratory Results - last 24 hr 05/15/18 05/15/18 05/15/18 05:40 05:40 05:40 WBC 1.7 L RBC 2.71 L Hgb 7.7 L Hct 22.4 L MCV 82.5 MCH 28.6 MCHC 34.7 RDW 13.6 Plt Count 380 MPV 7.9 Prelim Diff (Auto) Slide review pending Neut % (Auto) 69.2 Lymph % (Auto) 24.7 [place] % (Auto) 5.1 Eos % (Auto) 0.2 Baso % (Auto) 0.8 Neut # (Auto) 1.2 L Lymph # (Auto) 0.4 L [place] # (Auto) 0.1 Eos # (Auto) 0.0 Baso # (Auto) 0.0 WBC Differential Manual diff final Seg Neuts % (Manual) 68 Band Neuts % (Manual) 10 H Lymphocytes % (Manual) 18 Monocytes % (Manual) 3 Myelocytes % (Man) 1 H Abs Neuts (Manual) 1.3 L Nucleated RBCs/100 WBC 1 H Differential Comment . Toxic Granulation 1+ H Platelet Estimate Normal Platelet Morphology Normal PT 13.1 H INR 1.3 APTT 27.9 D Sodium 140 Potassium 3.5 Chloride 102 Carbon Dioxide 32.4 H Anion Gap 6 BUN 4 L Creatinine 0.64 Estimated GFR Greater than 89 Random Glucose 92 Calcium 8.6 Phosphorus 2.8 Magnesium 2.2 Total Bilirubin 0.6 AST 63 H ALT 102 H Alkaline Phosphatase 116 Total Protein 7.0 Albumin 2.8 L Medications: Active Medications Generic Name Dose Route Start Last Admin Trade Name Freq PRN Reason Stop Dose Admin Acetaminophen 650 mg 05/01/18 13:55 05/01/18 14:07 Tylenol PO 650 mg Q4H PRN Administration BLOOD PRODUCT TRANSFUSION Hydrocodone Bitart/Acetaminophen 1 tab 04/23/18 11:51 05/12/18 21:38 [place] 7.5/325 PO 1 tab Q6H PRN Administration PAIN SCALE 6 TO 10 Acyclovir 400 mg 04/24/18 22:00 05/15/18 05:42 Zovirax PO 400 mg Q8HR GILMA Administration Chlorhexidine Gluconate 15 ml 04/23/18 21:00 05/15/18 08:47 Peridex 0.12% Liq SWISH-SPIT 15 ml BID GILMA Administration Diphenhydramine HCl 25 mg 05/01/18 13:54 05/04/18 09:56 Benadryl PO 25 mg Q4H PRN Administration BLOOD PRODUCT TRANSFUSION Enoxaparin Sodium 40 mg 05/09/18 09:00 05/14/18 08:24 Lovenox Inj SQ 40 mg DAILY GILMA Administration Heparin Sodium (Porcine) 0 unit 04/16/18 00:00 04/26/18 00:44 Heparin Central Flush IV.FLUSH 200 unit PRN PRN Administration Flush each lumen Heparin Sodium (Porcine) 0 unit 04/16/18 09:00 05/15/18 08:47 Heparin Central Flush IV.FLUSH 500 unit DAILY GILMA Administration Lactobacillus Acidophilus 1 tab 05/06/18 21:00 05/15/18 08:47 Lactinex PO 1 tab BID GILMA Administration Lidocaine HCl 15 ml 04/23/18 10:00 05/03/18 14:07 Xylocaine 2% Viscous SWISH-SPIT 15 ml Q4H PRN Administration PAIN SCALE 6 TO 10 Lorazepam 0.5 mg 05/09/18 08:16 05/14/18 23:06 Ativan PO 0.5 mg Q6H PRN Administration ANXIETY Miscellaneous Information 1 each 04/16/18 00:00 04/16/18 13:22 [facility] Nursing Information OTHER Not Given [id number] GILMA Morphine Sulfate 2 mg 04/16/18 00:00 04/23/18 12:56 Morphine Inj IV.PUSH 2 mg Q2H PRN Administration PAIN SCALE 6 TO 10 Multivitamins 1 tab 05/03/18 09:00 05/15/18 08:47 Theragran PO 1 tab DAILY GILMA Administration Nystatin 5 ml 05/05/18 13:00 05/15/18 08:47 Mycostatin Liq SWISH-SWAL Not Given QID GILMA Ondansetron HCl 4 mg 04/16/18 00:00 04/23/18 10:26 Zofran Inj IV.PUSH 4 mg Q6H PRN Administration NAUSEA OR VOMITING Pantoprazole Sodium 20 mg 05/03/18 09:00 05/15/18 08:47 Protonix PO 20 mg DAILY GILMA Administration Prochlorperazine Edisylate 5 mg 04/26/18 08:51 05/03/18 04:26 Compazine Inj IV.PUSH 5 mg Q6H PRN Administration MILD NAUSEA Sodium Chloride 0 ml 04/16/18 09:00 05/15/18 08:47 Ns Flush IV.FLUSH 10 ml DAILY GILMA Administration Sodium Chloride 0 ml 04/16/18 00:00 04/27/18 09:15 Ns Flush IV.FLUSH 5 ml PRN PRN Administration FLUSH AFTER USING IV ACCESS Objective Remarks: GENERAL: Young male patient, lying in bed, in no acute distress. SKIN: Leal catheter/right chest wall, no redness/swelling/drainage. Warm and dry. HEAD: Normocephalic. EYES: No scleral icterus. No injection or drainage. [place]. MOUTH: [place], moist mucous membranes. Gums swelling, with some improvement, remains swollen. Heavy plaque buildup to gumlines. NECK: Supple, trachea midline. CARDIOVASCULAR: Regular rate and rhythm without murmurs. RESPIRATORY: Anterior breath sounds clear & equal bilaterally. No accessory muscle use. GASTROINTESTINAL: Abdomen soft, non-tender, nondistended. EXTREMITIES: No cyanosis, or edema. MUSCULOSKELETAL: Adequate muscle tone. NEUROLOGICAL: No obvious focal deficit. Alert and oriented 's 3. PSYCHIATRIC: Appropriate mood and affect; insight and judgment normal. Assessment/Plan - Plan 04/15 D1 Daunorubicin + Cytarabine 04/16: D2 Daunorubicin + Cytarabine 72: D3 Daunorubicin + Cytarabine 04/18: D4 Cytarabine. Afebrile. Tolerating chemo well. 04/19: D5 Cytarabine continue 04/20: D6 Cytarabine continues. 04/21: D7 Cytarabine continues. Afebrile, tolerating well. 04/22: D8 cytarabine. Afebrile, platelet transfusion this a.m. Now with jaw pain. 04/23: D9 Cytarabine completed overnight. Afebrile. Continued jaw pain. Diarrhea 3 x's/day, +n/v x's 1, + insomnia. 04/24: D10 febrile, T-max 102. Blood cultures pending. Currently on cefepime. ID and ENT consult. 04/25: D11 febrile, T-max 102.5F. Blood cultures no growth 2 days. Antibiotics per ID. ENT deferred consult to oral maxillofacial surgery. 04/28: D14 febrile, T-max 100.6F. Blood cultures no growth and 4 days. Current cultures pending. Day 14 bone marrow biopsy scheduled for today. 04/29: D15 febrile, T-max 101.6F. Blood cultures with no growth. Bone marrow biopsy completed yesterday, patient tolerated well. Results pending. 04/30: D16 febrile, T-max 102.1 F. Blood cultures continue with no growth. Bone marrow biopsy pending. 05/01: D17 febrile, T-max 102.1F. Blood cultures continue with no growth. Bone marrow biopsy resulted, pending review with pathology. 05/02: D18 febrile, T-max 102.3F. Blood cultures with no growth. 05/05: D21 febrile, T-max 103.2F. Blood cultures with no growth. 05/06: D2 T-max 100.1F. Blood cultures with no growth. Continues on antibiotics per ID. 05/07: D2 afebrile. Blood cultures with no growth. Pancytopenia improving. 05/08: D24 afebrile. Blood cultures with no growth. Hgb 8.3, Platelets 68k, Abs [place] 300. 05/12: D28 T-max 100.1F. Blood cultures remain with no growth. Pancytopenia continues to improve. Absolute neutrophils 900. 05/13: D29 T-max 100.2F. Blood cultures remain with no growth. Hemoglobin 7.5 today. Absolute neutrophils 1100. 05/14: D30 T-max 99 8F. Hemoglobin 7.7, platelets 349K, ANC 1000. 7: D31 afebrile. Awaiting bone marrow biopsy #3. Hemoglobin 7.7, platelets 380,000, ANC 1300. 1. Awaiting bone marrow biopsy day 31 today. 2. Blood counts continue to stabilize. 3. The patient is cleared for discharge today after his bone marrow biopsy. 4. Discharge planning has been discussed with the patient and his family, including follow-up for labs and with oncology outpatient. 5. The patient should maintain his previously scheduled dental appointment. 6. Case management aware of discharge and is obtaining the patient's blue card and any medications that he will be discharged on. - Attending Statement Patient was discharged before he could be seen. Noted that bone marrow biopsy was done. He remains mildly leukopenic/neutropenic and anemic. Follow-up appointment with regional oncology at [facility] on May 24 is confirmed. Patient is advised to call if problems arise, particularly if fever develops.
[2018-05-15] MEDS ORDERED: fentaNYL Citrate Inj 250 MCG/5 ML Ampul ONE (12:15)
[2018-05-15] MEDS ORDERED: Lidocaine 1%/Epinephrine 1:100,000 Inj 20 ML Vial ONE (12:27)
--- NOTE | 2018-05-15 12:59 | P.PNIM ---
Subjective Interval history: 05-13 No nausea or vomiting today feels much better. No transfers improving. Plan for biopsy on Tuesday if ANC more than 1500 Patient denies any fever or chills. No cough. No urinary complaints. No rash. 05-14 NO NEW ISSUES AT THIS TIME. FOR BM BIOPSY TOMORROW denies any mouth pain or sob, or chest pain No fevers since yesterday A.m. labs Discussed with hematology oncology and RN and wrapper caser 05-15 having bone marrow today can be dc later today follow up DR BOOTH DC TO HOME [facility] Physical Exam Vital signs: Vital Signs 05/14/18 16:00 05/14/18 20:00 05/15/18 00:00 Temperature 98.5 F 98.6 F 98.2 F Pulse Rate 99 H 93 H 93 H Respiratory Rate 16 16 16 Blood Pressure 115/63 110/63 114/71 Pulse Oximetry 99 100 100 05/15/18 04:00 05/15/18 08:42 05/15/18 11:18 Temperature 98.2 F 98.6 F 98.5 F Pulse Rate 87 101 H 95 H Respiratory Rate 15 18 18 Blood Pressure 117/74 114/75 115/76 Pulse Oximetry 99 99 99 Intake & Output 05/14/18 05/15/18 05/15/18 18:59 06:59 18:59 Intake Total 1800 / 1800 1400 / 1400 Output Total 1575 / 1575 1250 / 1250 Balance 225 / 225 150 / 150 Weight 96 kg Intake: Oral 1800 / 1800 1400 / 1400 Output: Urine 1575 / 1575 1250 / 1250 Other: Date of Last Bowel Movement 05/12/18 05/12/18 Narrative: GENERAL: Awake alert and oriented 3 talkative and cooperative. Somewhat lethargic today SKIN: Warm and dry. Has shaved his head due to the alopecia from the chemo HEAD: Atraumatic. Normocephalic. EYES: Pupils equal and round. No scleral icterus. No injection or drainage. ENT: No nasal bleeding or discharge. Mucous membranes pink and moist. NECK: Trachea midline. No JVD. CARDIOVASCULAR: Regular rate and rhythm. S1-S2 no S3 or S4 RESPIRATORY: No accessory muscle use. Clear to auscultation. Breath sounds equal bilaterally. GASTROINTESTINAL: Abdomen soft, non-tender, nondistended. Hepatic and splenic margins not palpable. MUSCULOSKELETAL: Extremities without clubbing, cyanosis, or edema. No obvious deformities. NEUROLOGICAL: Awake and alert. No obvious cranial nerve deficits. Motor grossly within normal limits. Five out of 5 muscle strength in the arms and legs. Normal speech. PSYCHIATRIC: Appropriate mood and affect; insight and judgment normal. Results - Labs CBC & Chem 7: 05/15/18 05:40 05/15/18 05:40 Laboratory Results - last 24 hr 05/15/18 05/15/18 05/15/18 05:40 05:40 05:40 WBC 1.7 L RBC 2.71 L Hgb 7.7 L Hct 22.4 L MCV 82.5 MCH 28.6 MCHC 34.7 RDW 13.6 Plt Count 380 MPV 7.9 Prelim Diff (Auto) Slide review pending Neut % (Auto) 69.2 Lymph % (Auto) 24.7 [place] % (Auto) 5.1 Eos % (Auto) 0.2 Baso % (Auto) 0.8 Neut # (Auto) 1.2 L Lymph # (Auto) 0.4 L [place] # (Auto) 0.1 Eos # (Auto) 0.0 Baso # (Auto) 0.0 WBC Differential Manual diff final Seg Neuts % (Manual) 68 Band Neuts % (Manual) 10 H Lymphocytes % (Manual) 18 Monocytes % (Manual) 3 Myelocytes % (Man) 1 H Abs Neuts (Manual) 1.3 L Nucleated RBCs/100 WBC 1 H Differential Comment . Toxic Granulation 1+ H Platelet Estimate Normal Platelet Morphology Normal PT 13.1 H INR 1.3 APTT 27.9 D Sodium 140 Potassium 3.5 Chloride 102 Carbon Dioxide 32.4 H Anion Gap 6 BUN 4 L Creatinine 0.64 Estimated GFR Greater than 89 Random Glucose 92 Calcium 8.6 Phosphorus 2.8 Magnesium 2.2 Total Bilirubin 0.6 AST 63 H ALT 102 H Alkaline Phosphatase 116 Total Protein 7.0 Albumin 2.8 L - Imaging Face CT 04/23/18 00:00 CONCLUSION: 1. No acute fracture. 2. No soft tissue abnormality. Chest X-Ray 04/23/18 21:13 CONCLUSION: Right central line in superior vena cava. No active disease. Abdomen/Pelvis CT 04/26/18 00:00 CONCLUSION: 1. Essentially negative CT of the abdomen and pelvis. There is a proximal transverse colon appears somewhat thickened but this is likely secondary to lack of distention versus less likely colitis. Bone Marrow Biopsy w/ CT 04/28/18 08:00 CONCLUSION: 1. Uncomplicated CT guided bone marrow aspirate. 2. Uncomplicated CT guided bone marrow biopsy. - Procedures BM biopsy Leal catheter placement Echo 04/14/2018 The left ventricular systolic function is hyperdynamic with an estimated ejection fraction in the range of 65- 70%. Normal left ventricular size. Wall thickness is normal. No regional wall motion abnormalities are present. Trace mitral valve regurgitation. The left ventricular systolic function is hyperdynamic with an estimated ejection fraction in the range of 65- 70%. Normal left ventricular size. Wall thickness is normal. No regional wall motion abnormalities are present. Trace mitral valve regurgitation. The estimated pulmonary arterial pressure is 30.6 mmHg. BM BIOPSY 04-28 BM BIOPSY 05-15 Assessment and Plan - Assessment (1) AML (acute myeloid leukemia) Code(s): C92.00 - Acute myeloblastic leukemia, not having achieved remission Status: Acute (2) Pancytopenia Code(s): D61.818 - Other pancytopenia Status: Acute - Plan 27 YOWM admitted 04/12/2018 due to generalized weakness. His hemoglobin was 3.3 and platelets 30k on admission. Hematology was consulted, and patient was ultimately diagnosed with AML and has undergone induction chemotherapy. His course has been complicated by neutropenic fever with persistent spikes in temperature. 1. Acute myeloid leukemia with pancytopenia - Confirmed with BM biopsy 04/13 - Heme/onc consulted and ff, completed nine days of induction chemo ( daunorubicin + cytarabine x 3 days followed by 6 days of cytarabine) - Per oncology: transfuse if Hb<7.0 or PLT<15K - Hb and platelets so far stable no need for transfusion at this time. Monitor and transfuse oer hem/onc indications - Transfused 1 unit of platelets and 1 units RBCs - Continue to monitor CBC closely - 04/28 bone marrow biopsy performed, flow cytometry consistent with residual AML Hem /onc following, patient is a candidate for BM transplant. cM consulted and ff for disability application. - Anticipate bone marrow biopsy and aspiration on Tuesday05/15/18 pending recovery of his counts. Needs to see oral surgery to evaluate his gums, would like to get a biopsy to rule out AML involvement which would complicate his clinical course further. BM BIOPSY TODAY 2. Neutropenic fever -Has been afebrile so far - White count continues to be low and patient pancytopenic - U/A and CXR unremarkable - Multiple blood cultures have been negative to date - ID following - Received Meropenem, vancomycin, and acyclovir, adjust per ID. Cefepime DCd as patient had rash. Stop antibiotics when the absolute neutrophil count is up to 1000 per ID recommendations. - No specific nidus of infection at this time -Blood cultures are negative to date - Continue to closely monitor DC TO HOME TODAY 3. Diarrhea- Resolved - C. diff PCR negative - Started probiotic and diarrhea resolved. 4. Jaw pain - CT with no evidence of necrosis or other pathology--OUT PATIENT FOLLOW UPS 5. Mucositis - Continue Diflucan and Nystatin S&S - continue peridex . To follow up with dentist as OP - Needs to see oral surgery to evaluate his gums, would like to get a biopsy to rule out AML involvement which would complicate his clinical course further. OUTPT FOLLOW UPS 6. History of seizure - Seizure precautions 7. Hypokalemia - Potassium continues to be low but improved from prior days - Mg WNL - Increase to KCl PO 40 BID - Continue to monitor closely 8. Decreased appetite with hypokalemia/ Replace K and monitor. Check mag as well and replace. Continue MVT 9. Nausea: antiemetic as need. DVT prophylaxis: SCDs, encourage ambulation. Chemical anticoagulation C/I given severe thrombocytopenia Discharge Planning: neutropenic precautions Discussed with the patient, nurse DC plan: poss DC next week,when improved and cleared by hematology oncology and ID. CM also ff for DC plan Also patient with life threatening disease requiring eval for BM transplantation , needs disability application, CM ff Discussed with Dr Booth oncology. Patient with life-threatening disease needs bone marrow transplant, long-term chemo patient cannot work for more than the one year, also with multiple hospitalizations and would require in the future multiple hospitalizations. He is disabled given his disease, the acute myeloid leukemia, and the treatments planned in the year coming. He needs the continued consolidation chemotherapy, that means additional cycles of chemotherapy looking similar to the one he just had, with prolonged hospitalization. In this manner he would not be able to work. Again, 100% of all remission post induction will progress and leukemia will recur without consolidation therapy. Consolidation therapy needs to continue or he will per hem/onc Dr Booth. Follow up; Labs cbc, bmp, and also monitor for signs of infection. Stop antibiotics when the absolute neutrophil count is up to 1000 per ID recommendations. Anticipate bone marrow biopsy and aspiration on Tuesday05/15/18 pending recovery of his counts. Needs to see oral surgery to evaluate his gums, would like to get a biopsy to rule out AML involvement which would complicate his clinical course further CLEARED BY ALL DC TO HOME TODAY Code Status: FULL CODE Discussed Condition With: RN AND CM AND PT AND ONCOLOGY Discharge Planning: DC AFTER BM IS DONE TODAY (1) AML (acute myeloid leukemia) Qualifiers: Leukemia Active/Remission status: without remission Qualified Code(s): C92.00 - Acute myeloblastic leukemia, not having achieved remission
--- NOTE | 2018-05-15 13:14 | P.DS ---
Date of admission: 04/12/18 17:55 Primary care physician: No Primary Care Physician Attending physician on discharge: Matti Gutierrez Anticipated date of discharge: 05/15/18 Brief History from admission: PATIENT CAME INTO HOSPITAL WITH LOW BLOOD COUNTS FOUND TO HAVE AML HAS HAD PORT AND BM BIOPSY DONE HAD INDUCTION WITH CHEMO TO HAVE REPEAT BM TODAY AND CAN BE DCED TO HOME TODAY FOLLOW UP WITH ONCOLOGY AND PCP diagnosis of acute myeloid leukemia. Leukemia changes his life significantly. He has some poor risk features of. His abnormal cytogenetics. He will need bone marrow transplant consultation and ultimately a transplant. The bone marrow transplant team has the final decision on the transplantation. In general, patients with a matched sibling donor with high or intermediate risk will be considered for transplant particularly if they are young. He does have 3 brothers who are potential donors. The case has previously been discussed with packing house supervisor, and verbal communication suggest that the patient is indeed a candidate. Molecular studies for FLT 3 mutation, and BRC-ABL are negative. Patient appeared to have achieved remission with the induction chemotherapy. He is pending remission bone marrow biopsy which we may schedule on Tuesday, anticipating continued cytopenia recovery. He has been hospitalized the last 4 weeks. Case management of been consulted early on in the case. Leukemias were explained in detail. In anticipation of his discharge our financial controller in the outpatient was consulted as well. This "remission" post initial induction therapy is known to be short lived without additional consolidation chemotherapy. This should NOT be mistaken for a cure. It is however a necessary criteria for cure. If a patient does not achieve a remission with induction, it is unlikely that he will be cure. Therefore, the patient is not able to resume usual activity, or resume life as usual since his leukemia will invariable come back without additional consolidation chemotherapy. We discussed that additional chemotherapy is needed for the next six months and active surveillance the next six months, so long as he is responding. Transplant can take the place of that consolidation when made available. However if he relapse, or our initial remission is not lasting, or if he does not find a match for transplant before he relapse, which is a real possibility in cases of leukemia, he may need continued chemotherapy for the rest of the year or the rest of his life. His longevity will significantly be impacted with we cannot maintain that remission. Case management has been consulted to assist in patient assistance versus disability and Medicaid application. Patient is disabled given his disease, the acute myeloid leukemia, and the treatments planned in the year coming. He needs the continued consolidation chemotherapy, that means additional cycles of chemotherapy looking similar to the one he just had, with prolonged hospitalization. In this manner he would not be able to work. Again, 100% of all remission post induction will progress and leukemia will recur without consolidation therapy. Consolidation therapy needs to continue or he will . DS: Diagnosis - Discharge Diagnosis (1) AML (acute myeloid leukemia) Status: Acute (2) Pancytopenia Status: Acute (3) Pancytopenia due to antineoplastic chemotherapy Status: Chronic DS: Medications - Discharge Medications Prescriptions: acidophilus-sporogenes [Acidophilus Ex Str (L. sporog)] 1 tab PO BID #60 tab acyclovir 400 mg PO Q8HR #180 cap chlorhexidine gluconate 15 ml SWISH-SPIT BID #900 ml multivitamin with folic acid [Thera] 1 tab PO DAILY #30 tab nystatin 5 ml SWISH-SWAL QID #600 ml pantoprazole [Protonix] 20 mg PO DAILY #30 tab DS: Summary Hospital Course: PATIENT CAME INTO HOSPITAL WITH LOW BLOOD COUNTS FOUND TO HAVE AML HAS HAD PORT AND BM BIOPSY DONE HAD INDUCTION WITH CHEMO TO HAVE REPEAT BM TODAY AND CAN BE DCED TO HOME TODAY FOLLOW UP WITH ONCOLOGY AND PCP diagnosis of acute myeloid leukemia. Leukemia changes his life significantly. He has some poor risk features of. His abnormal cytogenetics. He will need bone marrow transplant consultation and ultimately a transplant. The bone marrow transplant team has the final decision on the transplantation. In general, patients with a matched sibling donor with high or intermediate risk will be considered for transplant particularly if they are young. He does have 3 brothers who are potential donors. The case has previously been discussed with packing house supervisor, and verbal communication suggest that the patient is indeed a candidate. Molecular studies for FLT 3 mutation, and BRC-ABL are negative. Patient appeared to have achieved remission with the induction chemotherapy. He is pending remission bone marrow biopsy which we may schedule on Tuesday, anticipating continued cytopenia recovery. He has been hospitalized the last 4 weeks. Case management of been consulted early on in the case. Leukemias were explained in detail. In anticipation of his discharge our financial controller in the outpatient was consulted as well. This "remission" post initial induction therapy is known to be short lived without additional consolidation chemotherapy. This should NOT be mistaken for a cure. It is however a necessary criteria for cure. If a patient does not achieve a remission with induction, it is unlikely that he will be cure. Therefore, the patient is not able to resume usual activity, or resume life as usual since his leukemia will invariable come back without additional consolidation chemotherapy. We discussed that additional chemotherapy is needed for the next six months and active surveillance the next six months, so long as he is responding. Transplant can take the place of that consolidation when made available. However if he relapse, or our initial remission is not lasting, or if he does not find a match for transplant before he relapse, which is a real possibility in cases of leukemia, he may need continued chemotherapy for the rest of the year or the rest of his life. His longevity will significantly be impacted with we cannot maintain that remission. Case management has been consulted to assist in patient assistance versus disability and Medicaid application. Patient is disabled given his disease, the acute myeloid leukemia, and the treatments planned in the year coming. He needs the continued consolidation chemotherapy, that means additional cycles of chemotherapy looking similar to the one he just had, with prolonged hospitalization. In this manner he would not be able to work. Again, 100% of all remission post induction will progress and leukemia will recur without consolidation therapy. Consolidation therapy needs to continue or he will . HAS HAD CHEMO 04/15 D1 Daunorubicin + Cytarabine 04/16: D2 Daunorubicin + Cytarabine 04/17: D3 Daunorubicin + Cytarabine 04/18: D4 Cytarabine. Afebrile. Tolerating chemo well. 04/19: D5 Cytarabine continue 04/20: D6 Cytarabine continues. 04/21: D7 Cytarabine continues. Afebrile, tolerating well. 04/22: D8 cytarabine. Afebrile, platelet transfusion this a.m. Now with jaw pain. 04/23: D9 Cytarabine completed overnight. Afebrile. Continued jaw pain. Diarrhea 3 x's/day, +n/v x's 1, + insomnia. 04/24: D10 febrile, T-max 102. Blood cultures pending. Currently on cefepime. ID and ENT consult. 04/25: D11 febrile, T-max 102.5F. Blood cultures no growth 2 days. Antibiotics per ID. ENT deferred consult to oral maxillofacial surgery. 04/28: D14 febrile, T-max 100.6F. Blood cultures no growth and 4 days. Current cultures pending. Day 14 bone marrow biopsy scheduled for today. 04/29: D15 febrile, T-max 101.6F. Blood cultures with no growth. Bone marrow biopsy completed yesterday, patient tolerated well. Results pending. 04/30: D16 febrile, T-max 102.1 F. Blood cultures continue with no growth. Bone marrow biopsy pending. 05/01: D17 febrile, T-max 102.1F. Blood cultures continue with no growth. Bone marrow biopsy resulted, pending review with pathology. 05/02: D18 febrile, T-max 102.3F. Blood cultures with no growth. 05/05: D21 febrile, T-max 103.2F. Blood cultures with no growth. 05/06: D22 T-max 100.1F. Blood cultures with no growth. Continues on antibiotics per ID. 05/07: D23 afebrile. Blood cultures with no growth. Pancytopenia improving. 05/08: D24 afebrile. Blood cultures with no growth. Hgb 8.3, Platelets 68k, Abs Eliot 300. 05/12: D28 T-max 100.1F. Blood cultures remain with no growth. Pancytopenia continues to improve. Absolute neutrophils 900. 05/13: D29 T-max 100.2F. Blood cultures remain with no growth. Hemoglobin 7.5 today. Absolute neutrophils 1100. 05/14: D30 T-max 99 8F. Hemoglobin 7.7, platelets 349K, ANC 1000. 05/15: D31 afebrile. Awaiting bone marrow biopsy #3. Hemoglobin 7.7, platelets 380,000, ANC 1300. - Time Spent with Patient Total time spent providing and/or coordinating discharge services: Greater than 30 minutes Exam Vital signs: Vital Signs 05/14/18 16:00 05/14/18 20:00 05/15/18 00:00 Temperature 98.5 F 98.6 F 98.2 F Pulse Rate 99 H 93 H 93 H Respiratory Rate 16 16 16 Blood Pressure 115/63 110/63 114/71 Pulse Oximetry 99 100 100 05/15/18 04:00 05/15/18 08:42 05/15/18 11:18 Temperature 98.2 F 98.6 F 98.5 F Pulse Rate 87 101 H 95 H Respiratory Rate 18 Blood Pressure 117/74 114/75 115/76 Pulse Oximetry 99 99 99 Intake & Output 05/14/18 05/15/18 05/15/18 18:59 06:59 18:59 Intake Total 1800 / 1800 1400 / 1400 Output Total 1575 / 1575 1250 / 1250 Balance 225 / 225 150 / 150 Weight 96 kg Intake: Oral 1800 / 1800 1400 / 1400 Output: Urine 1575 / 1575 1250 / 1250 Other: Date of Last Bowel Movement 05/12/18 05/12/18 Narrative: GENERAL: Awake alert and oriented 3 talkative and cooperative SKIN: Warm and dry. Has alopecia secondary to chemo and then shaving HEAD: Atraumatic. Normocephalic. EYES: Pupils equal and round. No scleral icterus. No injection or drainage. ENT: No nasal bleeding or discharge. Mucous membranes pink and moist. NECK: Trachea midline. No JVD. CARDIOVASCULAR: Regular rate and rhythm. S1-S2 no S3 or S4 RESPIRATORY: No accessory muscle use. Clear to auscultation. Breath sounds equal bilaterally. GASTROINTESTINAL: Abdomen soft, non-tender, nondistended. Hepatic and splenic margins not palpable. MUSCULOSKELETAL: Extremities without clubbing, cyanosis, or edema. No obvious deformities. NEUROLOGICAL: Awake and alert. No obvious cranial nerve deficits. Motor grossly within normal limits. Five out of 5 muscle strength in the arms and legs. Normal speech. PSYCHIATRIC: Appropriate mood and affect; insight and judgment normal. Results Procedures completed during hospitalization: BM biopsy Leal catheter placement Echo 04/14/2018 The left ventricular systolic function is hyperdynamic with an estimated ejection fraction in the range of 65- 70%. Normal left ventricular size. Wall thickness is normal. No regional wall motion abnormalities are present. Trace mitral valve regurgitation. The left ventricular systolic function is hyperdynamic with an estimated ejection fraction in the range of 65- 70%. Normal left ventricular size. Wall thickness is normal. No regional wall motion abnormalities are present. Trace mitral valve regurgitation. The estimated pulmonary arterial pressure is 30.6 mmHg. BM BIOPSY 7-13 BM BIOPSY 7-30 Labs on day of discharge: Labs from last 24 hours 05/15/18 05/15/18 05/15/18 05:40 05:40 05:40 WBC 1.7 L RBC 2.71 L Hgb 7.7 L Hct 22.4 L MCV 82.5 MCH 28.6 MCHC 34.7 RDW 13.6 Plt Count 380 MPV 7.9 Prelim Diff (Auto) Slide review pending Neut % (Auto) 69.2 Lymph % (Auto) 24.7 [place] % (Auto) 5.1 Eos % (Auto) 0.2 Baso % (Auto) 0.8 Neut # (Auto) 1.2 L Lymph # (Auto) 0.4 L [place] # (Auto) 0.1 Eos # (Auto) 0.0 Baso # (Auto) 0.0 WBC Differential Manual diff final Seg Neuts % (Manual) 68 Band Neuts % (Manual) 10 H Lymphocytes % (Manual) 18 Monocytes % (Manual) 3 Myelocytes % (Man) 1 H Abs Neuts (Manual) 1.3 L Nucleated RBCs/100 WBC 1 H Differential Comment . Toxic Granulation 1+ H Platelet Estimate Normal Platelet Morphology Normal PT 13.1 H INR 1.3 APTT 27.9 D Sodium 140 Potassium 3.5 Chloride 102 Carbon Dioxide 32.4 H Anion Gap 6 BUN 4 L Creatinine 0.64 Estimated GFR Greater than 89 Random Glucose 92 Calcium 8.6 Phosphorus 2.8 Magnesium 2.2 Total Bilirubin 0.6 AST 63 H ALT 102 H Alkaline Phosphatase 116 Total Protein 7.0 Albumin 2.8 L - Impressions ITS Impressions Face CT 04/23/18 00:00 CONCLUSION: 1. No acute fracture. 2. No soft tissue abnormality. Chest X-Ray 04/23/18 21:13 CONCLUSION: Right central line in superior vena cava. No active disease. Abdomen/Pelvis CT 04/26/18 00:00 CONCLUSION: 1. Essentially negative CT of the abdomen and pelvis. There is a proximal transverse colon appears somewhat thickened but this is likely secondary to lack of distention versus less likely colitis. Bone Marrow Biopsy w/ CT 04/28/18 08:00 CONCLUSION: 1. Uncomplicated CT guided bone marrow aspirate. 2. Uncomplicated CT guided bone marrow biopsy. Discharge Plan - Discharge Disposition Patient Disposition: 01 Discharge Home - Discharge Condition Condition: Good - Discharge Order Discharge Orders: Discharge Order (Routine); Ordered 05/15/18 Ordered By: Matti Gutierrez - Discharge Details Anticipated Discharge Date: 05/15/18 Discharge Comment: DC TO HOME - Physicians Team Primary Care Provider: Primary Care Physici,No Attending Provider: Matti Gutierrez Other Providers: Louann Kerr MD ; Jean Pierre Lutz MD ; Benton Elmore MD ; Ismael Hernandez DMD - Rxs /Orders / Referrals /Forms Prescriptions: New acidophilus-sporogenes [Acidophilus Ex Str (L. sporog)] 35 million- 25 million cell Tablet 1 tab PO BID Qty: 60 RF: 0 acyclovir 200 mg Capsule 400 mg PO Q8HR Qty: 180 RF: 0 chlorhexidine gluconate 0.12 % Mouthwash 15 ml SWISH-SPIT BID Qty: 900 RF: 0 multivitamin with folic acid [Thera] 400 mcg Tablet 1 tab PO DAILY Qty: 30 RF: 0 nystatin 100,000 unit/mL Suspension 5 ml SWISH-SWAL QID Qty: 600 RF: 0 pantoprazole [Protonix] 20 mg Tablet,Delayed Release (Dr/Ec) 20 mg PO DAILY Qty: 30 RF: 0 Referrals: Primary Care Sweetie Gaston [Primary Care Provider] - See Instructions (2 TO 3 DAYS) Louann Kerr MD [Emergency Provider] - See Instructions (Follow-up in our out patient office for labwork on 05/18/18. Follow-up with Dr. Barnes early next week (our office should be contacting you with time and location). )
--- NOTE | 2018-05-15 13:20 | P.RAD ---
Post CT Procedure Prog Note - Pre Procedure Diagnosis (1) AML (acute myeloid leukemia) - Post Procedure Diagnosis (1) AML (acute myeloid leukemia) - Procedure Information Supervising Radiologist: Tyrell Cole MD Anesthesia: Local, Conscious Sedation - Plan of Activity Patient to Unit: Nursing Unit Patient condition: Good See PACS Report for procedural detail/treatment. Biopsy CT left Bone Marrow Site: Left iliac bone Specimen: Core Biopsy
[2018-05-15 13:38] VITALS: TEMP 98.2; O2SAT 98
[2018-05-15 15:02] LABS: Iron Stain Bone Marrow Done
[2018-05-15 15:10] VITALS: BP 119/79; PULSE 91; RESP 16
--- NOTE | 2018-05-15 16:56 | CT ---
EXAM DATE: 05/15/2018 1:27 PM EDT AGE/SEX: 27 years / Male INDICATIONS: Acute myelocytic leukemia. CLINICAL DATA: This is the patient's subsequent encounter. Patient reports that signs and symptoms h ave been present for 2 months and indicates a pain score of 0/10. MEDICAL/SURGICAL HISTORY: Leukemia. None. [place] [facility] [place] 04/28/2018. . BIOPSY SITE: Left bone marrow MEDICATION(S): 2.5mg midazolam (Versed) IV 125mcg fentanyl (Sublimaze) IV DEVICE(S): 11 gauge Bone marrow biopsy needle . . PROCEDURE: CT guided Left bone marrow biopsy Prior to the procedure informed consent was obtained. Any appropriate prior imaging studies were rev iewed. Using automated exposure control and adjustment of the mA and/or kV according to patient size , radiation dose was kept as low as reasonably achievable to obtain optimal diagnostic quality images . DICOM format image data is available electronically for review and comparison. The site was prepped in a sterile fashion. Full sterile technique was used, including cap, mask, hiram rile gloves and gown and a large sterile sheet. Hand hygiene and 2% chlorhexidine and/or betadine/al cohol prep was utilized per protocol for cutaneous antisepsis. The skin and subcutaneous tissues wer e infiltrated with local anesthetic solution. With CT guidance the previously identified target was localized. Biopsy was performed using the presc ribed needle as above. Following biopsy marrow aspiration was performed with repeat puncture. [place]qua te hemostasis was obtained with compression at the puncture site. Follow-up CT scan reveals no hemorrhage. Conscious sedation was performed with the prescribed dosages and duration as above in the presence of an independent trained radiology nurse to assist in the monitoring of the patient. EKG and oximetry remained stable throughout the procedure. The patient tolerated the procedure well and there were no complications. The patient was sent to Radiology Outpatient Unit in stable condition. CONCLUSION: 1. Uncomplicated CT guided bone marrow aspirate. 2. Uncomplicated CT guided bone marrow biopsy. Electronically signed by: Tyrell Cole MD 05/15/2018 4:55 PM EDT
== END 2018-05-15 16:45 | disposition home or self-care (01) ==
LOC: HCIN 17:55
PROVIDERS: ADMIT Hospitalist; ATTEND Hospitalist

== ENCOUNTER 2018-06-08 11:18 | Inpatient (IN) ==
[2018-06-08] MEDS ORDERED: Acetaminophen 325 MG Tablet PO PRN ×2 (13:34→13:47)
[2018-06-08] MEDS ORDERED: Cathflo Activase Inj 2 MG Vial I-CATHETER PRN (13:47)
[2018-06-08] MEDS ORDERED: LORazepam 0.5 MG Tablet PO PRN (13:47)
[2018-06-08] MEDS ORDERED: Aluminum/Magnesium/Simethacone Susp 30 ML UDC PO PRN (13:47)
[2018-06-08] MEDS ORDERED: Enoxaparin Inj 40 MG/0.4 ML Syringe SQ SCH (14:00)
[2018-06-08 14:25] LABS: Baso % (Auto) 0.6 % (0.0-2.0); Eos # (Auto) 0.1 th/mm3 (0.0-0.4); Eos % (Auto) 1.7 % (0.0-4.0); Hematocrit 32.8 % (39.0-51.0); Hemoglobin 10.8 gm/dL (13.0-17.0); Lymph # (Auto) 0.9 th/mm3 (1.0-4.8); Lymph % (Auto) 13.9 % (9.0-44.0); Mean Corpuscular HGB Conc 32.9 % (32.0-36.0); Mean Corpuscular Hemoglobin 29.6 pg (27.0-34.0); Mean Corpuscular Volume 90.1 fL (80.0-100.0); Mean Platelet Volume 7.9 fL (7.0-11.0); Mono # (Auto) 0.5 th/mm3 (0.0-0.9); Neut # (Auto) 5.1 th/mm3 (1.8-7.7); Neut % (Auto) 76.8 % (16.0-70.0); Platelet Count 316 th/mm3 (150-450); Red Blood Count 3.64 mil/mm3 (4.50-5.90); White Blood Count 6.7 th/mm3 (4.0-11.0)
[2018-06-08] MEDS ORDERED: Granisetron Inj 1 MG in Sodium Chlor 0.9% Inj 50 ML IV.SIG SCH (14:30)
[2018-06-08] MEDS ORDERED: Dexamethasone Inj 20 MG in Sodium Chlor 0.9% Inj 50 ML IV.SIG ONE (14:30)
--- NOTE | 2018-06-08 15:03 | MH ---
cc: Louann Kerr MD DATE OF ADMISSION: 06/08/2018 ADMISSION DIAGNOSES: 1. Acute myeloid leukemia. 2. Anemia. 3. Gingivitis. 4. Biphenotypic leukemia. HISTORY OF PRESENT ILLNESS: Mr. Hall is a 27-year-old man with history of intermittent headaches and seizure disorder. He presented to the emergency room with a hemoglobin of 3.7. Bone marrow biopsy revealed an acute myeloblastic leukemia. He was treated with induction chemotherapy, high-dose daunorubicin, and jaclyn-C. He had a day 28 marrow that shows minimal residual disease. He had less than 5% blasts. However, the flow cytometry suggested persistence of acute leukemia, possibly representing a B-lymphoid blast population. In retrospect, the B-lymphoid blast population may have been present from the initial biopsy. Mr. Hall is being considered for a bone marrow transplant at [facility]. He comes in today for his consolidation/reinduction chemotherapy. His bone marrow biopsy was done this morning by interventional radiology. In the meantime, we are planning to proceed with high-dose jaclyn-C. We discussed the risks and benefits of high dose jaclyn-C and it would be effective for consolidation of the acute myeloblastic leukemia and would also be effective for the B-lymphoid blast population represented in his bone marrow. He denies any fevers, chills, or night sweats. His Leal catheter is functioning well. He denies any pain or discomfort. He has no urinary complaints. He has had no seizure events. He denies any headaches. He is trying to avoid fruits and vegetables that he cannot wash. He had a dental procedure. His gums are feeling better. He had several cavities corrected. PAST MEDICAL HISTORY: Gingivitis, acute myeloid leukemia/biphenotypic, epilepsy, seizure disorder. PAST SURGICAL HISTORY: Multiple bone marrow biopsies, double-lumen Leal catheter placement. FAMILY HISTORY: Both parents are alive. Father has heart problems. No significant family history of cancer. SOCIAL HISTORY: He is single. He no longer smokes. He no longer drinks alcohol. Denies any illicit drug use. He is not working at present because of his leukemia. ALLERGIES: NO KNOWN DRUG ALLERGIES. CURRENT MEDICATIONS: 1. Cytarabine high dose. 2. Dexamethasone. 3. Granisetron. 4. Lorazepam p.r.n. 5. Ondansetron. 6. Roxicodone p.r.n. 7. Compazine p.r.n. PHYSICAL EXAMINATION: VITAL SIGNS: Temperature 98.4, heart rate 72, respiratory rate 16, blood pressure 133/79, saturation 97%. GENERAL: Mr. Hall is a well-developed, well-nourished, heavyset young man in no acute distress. HEENT: His pupils are round, reactive to light and accommodation. Oropharynx is clear. No oral lesions. Gums have receded, appeared somewhat inflamed superiorly. CARDIOVASCULAR: Reveals normal rate and rhythm. Right upper chest wall double-lumen Leal catheter in place. No erythema in exit site. LUNGS: Clear to auscultation. ABDOMEN: Benign. EXTREMITIES: Lower extremities with no edema. He has alopecia. NEUROLOGIC: Nonfocal. ASSESSMENT AND PLAN: Mr. 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 He is admitted for reinduction/consolidation chemotherapy. He is pending to receive high-dose jaclyn-C. Risks and benefits of high-dose jaclyn-C was discussed at length. We will initiate chemotherapy as ordered. Blood counts will be monitored. We will monitor for common toxicity. We anticipate none. Anticipate discharge after completion of his chemotherapy. Arrangements will be made to have labs drawn 3 times a week. Anticipate transfusions will be necessary during the course of his recovery post his induction/consolidation therapy. He is advised to come in immediately if any fever or temperature greater than 100.5. We will monitor his blood transfusion requirements and advise him accordingly. He is hopeful that he may be able to stay home during the course of his consolidation therapy. We will review the bone marrow results as they become available. Case was discussed with the pathologist and the specialists at the reference lab. A molecular study will reflectively be followed, given that the initial diagnosis was acute myeloid leukemia. Mr. Hall' questions were answered to his satisfaction. MD AMBROCIO Witt/jax , 02:11 PM , 02:23 PM
[2018-06-08] MEDS ORDERED: Dexamethasone Inj 20 MG, Granisetron Inj 1 MG in Sodium Chlor 0.9% Inj 50 ML IV.SIG ONE ×2 (16:00)
[2018-06-08] MEDS: Dexamethasone 0.1% Opth Drops 5 ML Bottle EACH EYE SCH ×3 (17:15→21:22)
[2018-06-08] MEDS ORDERED: CYTARABINE IV.SIG ONE (17:25)
[2018-06-08] MEDS ORDERED: SODIUM CHLOR 0.9% IV.SIG ONE (17:25)
[2018-06-08] MEDS: CYTARABINE IV.SIG SCH (17:25)
[2018-06-08] MEDS: SODIUM CHLOR 0.9% IV.SIG SCH (17:25)
[2018-06-09 00:39] LABS: Alanine Aminotransferase 62 U/L (12-78); Albumin 3.7 g/dL (3.4-5.0); Anion Gap 7 meq/L (5-15); Aspartate Aminotransferase 31 U/L (15-37); Blood Urea Nitrogen 7 mg/dL (7-18); Carbon Dioxide 29.4 meq/L (21.0-32.0); Chloride 103 meq/L (98-107); Glomerular Filtration Rate Greater Than 89 mL/min (>89); Glucose,Random 133 mg/dL (74-106); Potassium 4.2 meq/L (3.5-5.1); Sodium 139 meq/L (136-145)
[2018-06-09 00:41] LABS: Alkaline Phosphatase 79 U/L (45-117); Total Protein 7.7 g/dL (6.4-8.2)
[2018-06-09 00:46] LABS: Activated Partial Thrombo Time 28.5 sec (24.3-30.1); Prothrombin Time 10.6 sec (9.8-11.6)
[2018-06-09] MEDS ORDERED: SODIUM CHLOR 0.9% IV.SIG ONE (05:20)
[2018-06-09] MEDS: CYTARABINE IV.SIG SCH (05:20)
[2018-06-09] MEDS: SODIUM CHLOR 0.9% IV.SIG SCH (05:20)
[2018-06-09] MEDS ORDERED: CYTARABINE IV.SIG ONE (05:20)
[2018-06-09 05:57] LABS: Hematocrit 33.5 % (39.0-51.0); Hemoglobin 11.3 gm/dL (13.0-17.0); Lymph # (Auto) 0.4 th/mm3 (1.0-4.8); Lymph % (Auto) 4.4 % (9.0-44.0); Mean Corpuscular HGB Conc 33.8 % (32.0-36.0); Mean Corpuscular Volume 88.8 fL (80.0-100.0); Mean Platelet Volume 8.5 fL (7.0-11.0); Mono # (Auto) 0.1 th/mm3 (0.0-0.9); Mono % (Auto) 1.6 % (0.0-8.0); Platelet Count 352 th/mm3 (150-450); Red Blood Count 3.77 mil/mm3 (4.50-5.90); Red Cell Distribution Width 18.6 % (11.6-17.2); White Blood Count 8.5 th/mm3 (4.0-11.0)
[2018-06-09] MEDS: Dexamethasone 0.1% Opth Drops 5 ML Bottle EACH EYE SCH ×4 (08:53→21:28)
[2018-06-09] MEDS: Enoxaparin Inj 40 MG/0.4 ML Syringe SQ SCH (08:53)
--- NOTE | 2018-06-09 12:43 | P.PNONC ---
Subjective Interval history: Afebrile. Patient in good spirits, reports tolerating chemotherapy well. Objective Vital Signs/Intake & Output: Vital Signs 06/08/18 16:00 06/08/18 20:00 06/09/18 00:00 Temperature 98.0 F 98 F 98.1 F Pulse Rate 89 75 85 Respiratory Rate 16 16 16 Blood Pressure 130/77 129/75 128/80 Pulse Oximetry 98 97 98 06/09/18 04:00 06/09/18 08:39 Temperature 97.6 F 98.1 F Pulse Rate 69 73 Respiratory Rate 16 16 Blood Pressure 150/74 H 115/59 L Pulse Oximetry 100 98 Intake & Output 06/08/18 06/09/18 06/09/18 18:59 06:59 18:59 Intake Total 58 / 58 1370 / 1370 Output Total 725 / 725 Balance 58 / 58 645 / 645 Weight 100.5 kg Intake: IV 58 / 58 320 / 320 Christine-C Inj 6.54 GM In NS Inj 250 320 / 320 ML @ 105.133 mls/hr IV.SIG Q12H GILMA Rx#:[id number] Decadron Inj 20 MG Kytril Inj 1 58 / 58 MG In NS Inj 50 ML @ 330 mls/ hr IV.SIG ONCE ONE Rx#:[id number] Oral 1050 / 1050 Output: Urine 725 / 725 Other: Date of Last Bowel Movement 06/07/18 06/07/18 06/07/18 Weight On Admission 100.5 kg Result Diagrams: 06/09/18 05:20 06/09/18 00:10 Laboratory Results: Laboratory Results - last 24 hr 06/08/18 06/09/18 06/09/18 14:10 00:10 00:10 WBC 6.7 RBC 3.64 L Hgb 10.8 L Hct 32.8 L MCV 90.1 MCH 29.6 MCHC 32.9 RDW 19.0 H Plt Count 316 MPV 7.9 Neut % (Auto) 76.8 H Lymph % (Auto) 13.9 Gilmer % (Auto) 7.0 Eos % (Auto) 1.7 Baso % (Auto) 0.6 Neut # (Auto) 5.1 Lymph # (Auto) 0.9 L Gilmer # (Auto) 0.5 Eos # (Auto) 0.1 Baso # (Auto) 0.0 WBC Differential . Differential Comment Auto diff final PT 10.6 INR 1.0 APTT 28.5 Fibrinogen 405 H Sodium 139 Potassium 4.2 Chloride 103 Carbon Dioxide 29.4 Anion Gap 7 BUN 7 Creatinine 0.77 Estimated GFR Greater than 89 Random Glucose 133 H Calcium 9.0 Total Bilirubin 0.4 AST 31 ALT 62 Alkaline Phosphatase 79 Total Protein 7.7 Albumin 3.7 06/09/18 05:20 WBC 8.5 RBC 3.77 L Hgb 11.3 L Hct 33.5 L MCV 88.8 MCH 30.0 MCHC 33.8 RDW 18.6 H Plt Count 352 MPV 8.5 Neut % (Auto) 94.0 H Lymph % (Auto) 4.4 L Gilmer % (Auto) 1.6 Eos % (Auto) 0.0 Baso % (Auto) 0.0 Neut # (Auto) 8.0 H Lymph # (Auto) 0.4 L Gilmer # (Auto) 0.1 Eos # (Auto) 0.0 Baso # (Auto) 0.0 WBC Differential . Differential Comment Auto diff final PT INR APTT Fibrinogen Sodium Potassium Chloride Carbon Dioxide Anion Gap BUN Creatinine Estimated GFR Random Glucose Calcium Total Bilirubin AST ALT Alkaline Phosphatase Total Protein Albumin Medications: Active Medications Generic Name Dose Route Start Last Admin Trade Name Freq PRN Reason Stop Dose Admin Dexamethasone Sodium Phosphate 2 drop 06/08/18 14:00 06/09/18 08:53 Decadron 0.1% Opth Drops EACH EYE 06/14/18 23:59 2 drop QID GILMA Administration Enoxaparin Sodium 40 mg 06/09/18 09:00 06/09/18 08:53 Lovenox Inj SQ 40 mg Q24H GILMA Administration Oxycodone HCl 5 mg 06/08/18 13:47 06/08/18 19:04 Roxicodone PO 5 mg Q3H PRN Administration Pain Scale 4 to 7 Oxycodone HCl 10 mg 06/08/18 13:47 06/08/18 22:34 Roxicodone PO 10 mg Q3H PRN Administration Pain Scale 8 to 10 Objective Remarks: GENERAL: Well-nourished, well-developed young male patient, in no acute distress. SKIN: Warm and dry. Lower back BM biopsy site with no drainage, bleeding, ecchymosis or swelling. HEAD: Normocephalic. MOUTH: Mucous membranes pink, moist. No sores or ulcerations noted. EYES: No scleral icterus. No injection or drainage. NECK: Supple, trachea midline. CARDIOVASCULAR: Regular rate and rhythm without murmurs. RESPIRATORY: Posterior breath sounds clear, equal bilaterally. No accessory muscle use. GASTROINTESTINAL: Abdomen soft, non-tender, nondistended. EXTREMITIES: No cyanosis, or edema. MUSCULOSKELETAL: Adequate muscle tone. NEUROLOGICAL: No obvious focal deficit. Awake, alert, and oriented x3. PSYCHIATRIC: Appropriate mood and affect; insight and judgment normal. 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 He is status post induction chemotherapy. He has been admitted for reinduction/consolidation chemotherapy. Plan for high-dose CHRISTINE-C. To note molecular study received today from his April 13, 2018 bone marrow biopsy , resulted negative for IDH1 and IDH2 mutations. Plan: 1. Consolidation chemotherapy with high-dose ARC, patient tolerating well. We will continue to monitor. 2. Continue to monitor for toxicity. 3. Continue to monitor labs. 4. Continue supportive care. - Attending Statement The exam, history, and the medical decision-making described in the above note were completed with the assistance of the mid-level provider. I reviewed and agree with the findings presented. I attest that I had a [id number] encounter with the patient on the same day, and personally performed and documented my assessment and findings in the medical record. Patient seen and examined. Biopsy site looks clear. Tolerating chemo well. Discussed at length preliminary from bone marrow biopsy which showed residual disease. He has high risk disease and will need bone marrow transplant consolidation. Proceed with high-dose christine-C induction for minimal residual disease. Risk and benefit of chemotherapy was discussed at length. Proceed with treatment as planned. Minimize blood draw. Anticipate cytopenias after patient is discharged.
[2018-06-09] MEDS ORDERED: Dexamethasone Inj 20 MG in Sodium Chlor 0.9% Inj 50 ML IV.SIG SCH (14:30)
[2018-06-09] MEDS: Dexamethasone Inj 20 MG, Granisetron Inj 1 MG in Sodium Chlor 0.9% Inj 50 ML IV.SIG SCH ×2 (14:45)
--- NOTE | 2018-06-10 09:13 | P.PNONC ---
Subjective Interval history: Afebrile Pt tolerating chemotherapy well Complains of some dry mouth Had some leg weakness after the steroids Otherwise no acute complaints Objective Vital Signs/Intake & Output: Vital Signs 06/09/18 13:15 06/09/18 17:12 06/09/18 20:00 Temperature 98.5 F 97.7 F 98.3 F Pulse Rate 97 H 82 100 H Respiratory Rate 16 18 Blood Pressure 133/75 134/78 135/92 H Pulse Oximetry 98 99 06/10/18 00:00 06/10/18 04:00 06/10/18 08:57 Temperature 98.4 F 97.8 F 98.2 F Pulse Rate 73 62 68 Respiratory Rate 18 18 20 Blood Pressure 136/73 115/59 L 123/68 Pulse Oximetry 97 100 Intake & Output 06/09/18 06/10/18 06/10/18 18:59 06:59 18:59 Intake Total 1262 / 1262 500 / 500 Output Total 1250 / 1250 1800 / 1800 Balance -1300 / -1300 Weight 233 lb 7.512 oz Intake: IV 388 / 388 Decadron Inj 20 MG Kytril Inj 1 58 / 58 MG In NS Inj 50 ML @ 330 mls/ hr IV.SIG Q24H GILMA Rx#:[id number] Oral 874 / 874 500 / 500 Output: Urine 1250 / 1250 1800 / 1800 Other: Date of Last Bowel Movement 06/07/18 06/09/18 Result Diagrams: 06/09/18 05:20 06/09/18 00:10 Medications: Active Medications Generic Name Dose Route Start Last Admin Trade Name Freq PRN Reason Stop Dose Admin Dexamethasone Sodium Phosphate 2 drop 06/08/18 14:00 06/09/18 21:28 Decadron 0.1% Opth Drops EACH EYE 06/14/18 23:59 2 drop QID GILMA Administration Enoxaparin Sodium 40 mg 06/09/18 09:00 06/09/18 08:53 Lovenox Inj SQ 40 mg Q24H GILMA Administration Dexamethasone Sodium Phosphate 56 mls @ 330 mls/hr 06/09/18 14:30 06/09/18 15 :00 20 mg/ Granisetron HCl 1 mg/ IV.SIG 06/12/18 14:41 Infused Sodium Chloride Q24H GILMA Infusion Oxycodone HCl 5 mg 06/08/18 13:47 06/08/18 19:04 Roxicodone PO 5 mg Q3H PRN Administration Pain Scale 4 to 7 Oxycodone HCl 10 mg 06/08/18 13:47 06/09/18 21:27 Roxicodone PO 10 mg Q3H PRN Administration Pain Scale 8 to 10 Objective Remarks: GENERAL: Young male, walking the halls in no obvious distress SKIN: Warm and dry. Leal catheter to right chest wall. No oozing from insertion site. HEAD: Normocephalic. EYES: No scleral icterus. No injection or drainage. NECK: Supple, trachea midline. No JVD or lymphadenopathy. CARDIOVASCULAR: Regular rate and rhythm without murmurs. RESPIRATORY: Breath sounds equal bilaterally. No accessory muscle use. GASTROINTESTINAL: Abdomen soft, non-tender, nondistended. EXTREMITIES: No cyanosis, or edema. MUSCULOSKELETAL: Adequate muscle tone. NEUROLOGICAL: No obvious focal deficit. Awake, alert, and oriented x3. 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 He is status post induction chemotherapy. He has been admitted for reinduction/consolidation chemotherapy. Plan for high-dose KALA-C. To note molecular study received today from his April 13, 2018 bone marrow biopsy , resulted negative for IDH1 and IDH2 mutations. Plan: 1. Patient will receive day 3 of high-dose kala-C today. 2. CBC, CMP in a.m. 3. Supportive care. 4. Anticipate patient will need close follow-up in clinic after discharge for possible transfusions. - Attending Statement The exam, history, and the medical decision-making described in the above note were completed with the assistance of the mid-level provider. I reviewed and agree with the findings presented. I attest that I had a [id number] encounter with the patient on the same day, and personally performed and documented my assessment and findings in the medical record. Patient receiving day 3 of high-dose kala-C. He is tolerating the chemotherapy well. He has some muscle ache and mild tremors of his hands. Continue chemotherapy protocol and monitor closely.
[2018-06-10] MEDS: Enoxaparin Inj 40 MG/0.4 ML Syringe SQ SCH (09:47)
[2018-06-10] MEDS: Dexamethasone 0.1% Opth Drops 5 ML Bottle EACH EYE SCH ×4 (09:48→21:40)
[2018-06-10] MEDS: Dexamethasone Inj 20 MG, Granisetron Inj 1 MG in Sodium Chlor 0.9% Inj 50 ML IV.SIG SCH ×2 (14:33)
[2018-06-10] MEDS: SODIUM CHLOR 0.9% IV.SIG SCH (16:01)
[2018-06-10] MEDS ORDERED: CYTARABINE IV.SIG ONE (16:01)
[2018-06-10] MEDS: CYTARABINE IV.SIG SCH (16:01)
[2018-06-10] MEDS ORDERED: SODIUM CHLOR 0.9% IV.SIG ONE (16:01)
[2018-06-10] MEDS: Morphine Inj 4 MG/ML Vial IV.PUSH PRN (19:46)
[2018-06-11] MEDS: CYTARABINE IV.SIG SCH (03:10)
[2018-06-11] MEDS ORDERED: CYTARABINE IV.SIG ONE (03:10)
[2018-06-11] MEDS: SODIUM CHLOR 0.9% IV.SIG SCH (03:10)
[2018-06-11] MEDS ORDERED: SODIUM CHLOR 0.9% IV.SIG ONE (03:10)
[2018-06-11 07:25] LABS: Hematocrit 30.2 % (39.0-51.0); Hemoglobin 9.9 gm/dL (13.0-17.0); Lymph # (Auto) 0.3 th/mm3 (1.0-4.8); Lymph % (Auto) 3.2 % (9.0-44.0); Mean Corpuscular HGB Conc 32.8 % (32.0-36.0); Mean Corpuscular Volume 91.6 fL (80.0-100.0); Mean Platelet Volume 8.5 fL (7.0-11.0); Mono # (Auto) 0.1 th/mm3 (0.0-0.9); Mono % (Auto) 1.2 % (0.0-8.0); Neut # (Auto) 7.5 th/mm3 (1.8-7.7); Neut % (Auto) 95.6 % (16.0-70.0); Platelet Count 264 th/mm3 (150-450); Red Cell Distribution Width 18.8 % (11.6-17.2); White Blood Count 7.8 th/mm3 (4.0-11.0)
[2018-06-11 07:37] LABS: Alanine Aminotransferase 74 U/L (12-78); Alkaline Phosphatase 61 U/L (45-117); Anion Gap 8 meq/L (5-15); Aspartate Aminotransferase 31 U/L (15-37); Blood Urea Nitrogen 9 mg/dL (7-18); Carbon Dioxide 28.7 meq/L (21.0-32.0); Chloride 105 meq/L (98-107); Glomerular Filtration Rate Greater Than 89 mL/min (>89); Glucose,Random 120 mg/dL (74-106); Potassium 4.1 meq/L (3.5-5.1); Sodium 142 meq/L (136-145); Total Protein 6.3 g/dL (6.4-8.2); Uric Acid 3.8 mg/dl (2.6-7.2)
--- NOTE | 2018-06-11 09:01 | P.PNONC ---
Subjective Interval history: Afebrile Pt reports his chemo finished up early this am No longer has leg weakness but now has joint pain Reports oxycodone is helping Objective Vital Signs/Intake & Output: Vital Signs 06/10/18 15:59 06/10/18 19:13 06/10/18 19:34 Temperature 98.9 F Pulse Rate 66 70 Respiratory Rate 18 18 18 Blood Pressure 121/78 115/60 Pulse Oximetry 99 98 06/10/18 19:48 06/10/18 22:10 06/11/18 00:13 Temperature 98.1 F Pulse Rate 63 Respiratory Rate 18 18 18 Blood Pressure 122/76 Pulse Oximetry 99 06/11/18 01:40 06/11/18 04:00 06/11/18 07:57 Temperature 97.5 F L 97.7 F Pulse Rate 55 L 64 Respiratory Rate 16 16 16 Blood Pressure 117/63 119/70 Pulse Oximetry 100 96 Intake & Output 06/10/18 06/11/18 06/11/18 18:59 06:59 18:59 Intake Total 950 / 950 1015.4 / 1015.4 315.4 / 315.4 Balance 950 / 950 1015.4 / 1015.4 315.4 / 315.4 Intake: IV 100 / 100 315.4 / 315.4 315.4 / 315.4 Christine-C Inj 6.54 GM In NS Inj 250 315.4 / 315.4 315.4 / 315.4 ML @ 105.133 mls/hr IV.SIG Q12H [facility] Rx#:[id number] Decadron Inj 20 MG Kytril Inj 1 100 / 100 MG In NS Inj 50 ML @ 330 mls/ hr IV.SIG Q24H GILMA Rx#:[id number] Oral 850 / 850 700 / 700 Other: # Voids 3 Date of Last Bowel Movement 06/09/18 Result Diagrams: 06/11/18 06:43 06/11/18 06:43 Laboratory Results: Laboratory Results - last 24 hr 06/11/18 06/11/18 06:43 06:43 WBC 7.8 RBC 3.30 L Hgb 9.9 L Hct 30.2 L MCV 91.6 MCH 30.0 MCHC 32.8 RDW 18.8 H Plt Count 264 MPV 8.5 Neut % (Auto) 95.6 H Lymph % (Auto) 3.2 L Stanton % (Auto) 1.2 Eos % (Auto) 0.0 Baso % (Auto) 0.0 Neut # (Auto) 7.5 Lymph # (Auto) 0.3 L Stanton # (Auto) 0.1 Eos # (Auto) 0.0 Baso # (Auto) 0.0 WBC Differential . Differential Comment Auto diff final Sodium 142 Potassium 4.1 Chloride 105 Carbon Dioxide 28.7 Anion Gap 8 BUN 9 Creatinine 0.67 Estimated GFR Greater than 89 Random Glucose 120 H Uric Acid 3.8 Calcium 8.0 L Total Bilirubin 0.4 AST 31 ALT 74 Alkaline Phosphatase 61 Total Protein 6.3 L D Albumin 3.0 L Medications: Active Medications Generic Name Dose Route Start Last Admin Trade Name Freq PRN Reason Stop Dose Admin Dexamethasone Sodium Phosphate 2 drop 06/08/18 14:00 06/10/18 21:40 Decadron 0.1% Opth Drops EACH EYE 06/14/18 23:59 2 drop QID GILMA Administration Enoxaparin Sodium 40 mg 06/09/18 09:00 06/10/18 09:47 Lovenox Inj SQ 40 mg Q24H GLIMA Administration Dexamethasone Sodium Phosphate 56 mls @ 330 mls/hr 06/09/18 14:30 06/10/18 18 :26 20 mg/ Granisetron HCl 1 mg/ IV.SIG 06/12/18 14:41 Infused Sodium Chloride Q24H GILMA Infusion Morphine Sulfate 2 mg 06/08/18 14:15 06/10/18 19:46 Morphine Inj IV.PUSH 2 mg Q4H PRN Administration PAIN 8-10 Oxycodone HCl 5 mg 06/08/18 13:47 06/08/18 19:04 Roxicodone PO 5 mg Q3H PRN Administration Pain Scale 4 to 7 Oxycodone HCl 10 mg 06/08/18 13:47 06/11/18 01:10 Roxicodone PO 10 mg Q3H PRN Administration Pain Scale 8 to 10 Objective Remarks: GENERAL: Young male, walking the halls in no obvious distress SKIN: Warm and dry. Leal catheter to right chest wall. No oozing from insertion site. HEAD: Normocephalic. EYES: No scleral icterus. No injection or drainage. NECK: Supple, trachea midline. No JVD or lymphadenopathy. CARDIOVASCULAR: Regular rate and rhythm without murmurs. RESPIRATORY: Breath sounds equal bilaterally. No accessory muscle use. GASTROINTESTINAL: Abdomen soft, non-tender, nondistended. EXTREMITIES: No cyanosis, or edema. MUSCULOSKELETAL: Adequate muscle tone. NEUROLOGICAL: No obvious focal deficit. Awake, alert, and oriented x3. 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 He is status post induction chemotherapy. He has been admitted for reinduction/consolidation chemotherapy. Plan for high-dose CHRISTINE-C. To note molecular study received today from his April 13, 2018 bone marrow biopsy , resulted negative for IDH1 and IDH2 mutations. Plan: 1. Today is day #4 of consolidation #1. Off day today. 2. Monitor labs. Day #5 chemo tomorrow. 3. Supportive care. 4. Anticipate patient will need close follow-up in clinic after discharge for possible transfusions. - Attending Statement The exam, history, and the medical decision-making described in the above note were completed with the assistance of the mid-level provider. I reviewed and agree with the findings presented. I attest that I had a [id number] encounter with the patient on the same day, and personally performed and documented my assessment and findings in the medical record. Patient has completed day 3 of christine-C. No obvious neurologic changes noted. Still have joint ache but stable. Tolerating treatment well so far. He will continue chemotherapy protocol.
[2018-06-11] MEDS: Enoxaparin Inj 40 MG/0.4 ML Syringe SQ SCH (12:13)
[2018-06-11] MEDS: Dexamethasone 0.1% Opth Drops 5 ML Bottle EACH EYE SCH ×4 (12:14→21:04)
[2018-06-11] MEDS: Dexamethasone Inj 20 MG, Granisetron Inj 1 MG in Sodium Chlor 0.9% Inj 50 ML IV.SIG SCH ×2 (16:07)
[2018-06-11] MEDS: Morphine Inj 4 MG/ML Vial IV.PUSH PRN (21:00)
[2018-06-12] MEDS: Morphine Inj 4 MG/ML Vial IV.PUSH PRN ×4 (01:16→21:53)
[2018-06-12] MEDS: Dexamethasone 0.1% Opth Drops 5 ML Bottle EACH EYE SCH ×4 (09:52→21:01)
[2018-06-12] MEDS: Enoxaparin Inj 40 MG/0.4 ML Syringe SQ SCH (09:52)
--- NOTE | 2018-06-12 10:21 | P.PNONC ---
Subjective Interval history: Afebrile. Continues to have joint and bone pain, denies weakness. Good appetite. Objective Vital Signs/Intake & Output: Vital Signs 06/11/18 12:00 06/11/18 17:04 06/11/18 20:00 Temperature 98.5 F 98.1 F 98.5 F Pulse Rate 68 78 85 Respiratory Rate 16 16 16 Blood Pressure 133/75 131/84 131/86 Pulse Oximetry 99 99 100 06/12/18 00:00 06/12/18 04:00 06/12/18 08:00 Temperature 98.2 F 97.8 F 98.4 F Pulse Rate 67 80 64 Respiratory Rate 16 16 20 Blood Pressure 136/82 113/58 L 125/57 L Pulse Oximetry 100 100 Intake & Output 06/11/18 06/12/18 06/12/18 18:59 06:59 18:59 Intake Total 1365.4 / 1365.4 1500 / 1500 Output Total 1999 Balance 1365.4 / 1365.4 -500 / -500 Weight 108.9 kg Intake: IV 315.4 / 315.4 Jaclyn-C Inj 6.54 GM In NS Inj 250 315.4 / 315.4 ML @ 105.133 mls/hr IV.SIG Q12H GILMA Rx#:[id number] Oral 1050 / 1050 1500 / 1500 Output: Urine 1999 Other: # Voids 4 Date of Last Bowel Movement 06/11/18 06/11/18 06/11/18 Result Diagrams: 06/11/18 06:43 06/11/18 06:43 Medications: Active Medications Generic Name Dose Route Start Last Admin Trade Name Janiq PRN Reason Stop Dose Admin Dexamethasone Sodium Phosphate 2 drop 06/08/18 14:00 06/12/18 09:52 Decadron 0.1% Opth Drops EACH EYE 06/14/18 23:59 2 drop QID GILMA Administration Enoxaparin Sodium 40 mg 06/09/18 09:00 06/12/18 09:52 Lovenox Inj SQ 40 mg Q24H GILMA Administration Dexamethasone Sodium Phosphate 56 mls @ 330 mls/hr 06/09/18 14:30 06/11/18 16 :07 20 mg/ Granisetron HCl 1 mg/ IV.SIG 06/12/18 14:41 Not Given Sodium Chloride Q24H GILMA Morphine Sulfate 2 mg 06/08/18 14:15 06/12/18 05:23 Morphine Inj IV.PUSH 2 mg Q4H PRN Administration PAIN 8-10 Oxycodone HCl 5 mg 06/08/18 13:47 06/08/18 19:04 Roxicodone PO 5 mg Q3H PRN Administration Pain Scale 4 to 7 Oxycodone HCl 10 mg 06/08/18 13:47 06/12/18 09:56 Roxicodone PO 10 mg Q3H PRN Administration Pain Scale 8 to 10 Objective Remarks: GENERAL: Young male patient, in no acute distress. SKIN: Warm and dry. HEAD: Normocephalic. EYES: No scleral icterus. No injection or drainage. MOUTH: Freeborn moist mucous membranes. No sores or ulcerations noted. NECK: Supple, trachea midline. CARDIOVASCULAR: + S1/S2 without murmurs. RESPIRATORY: Posterior breath sounds clear, equal. No accessory muscle use. GASTROINTESTINAL: Abdomen soft, non-tender, nondistended. EXTREMITIES: No cyanosis, or edema. MUSCULOSKELETAL: Adequate muscle tone. NEUROLOGICAL: No obvious focal deficit. Awake, alert, and oriented x3. PSYCHIATRIC: Appropriate mood and affect; insight and judgment normal. 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 He is status post induction chemotherapy. He has been admitted for reinduction/consolidation chemotherapy. Plan for high-dose JACLYN-C. To note molecular study received today from his April 13, 2018 bone marrow biopsy , resulted negative for IDH1 and IDH2 mutations. Plan: 1. Today is day #5 of consolidation #1. 2. Monitor labs. 3. Anticipate patient will need close follow-up in clinic after discharge for possible transfusions. 4. Biopsy results from 06/08/2018, pending. - Attending Statement The exam, history, and the medical decision-making described in the above note were completed with the assistance of the mid-level provider. I reviewed and agree with the findings presented. I attest that I had a [id number] encounter with the patient on the same day, and personally performed and documented my assessment and findings in the medical record. Patient seen and examined. In good spirits. Main complaint of bone pain. Denies any vision changes. Anticipate his last bag #6 high-dose jaclyn-C to be administered at approximately 4 AM. Anticipate discharge tomorrow after her last dose of chemotherapy. He will need to continue his eyedrops for 48 hours after completion of his chemotherapy i.e. day 6 and a 7. Outpatient follow-up will be coordinated to check his labs and transfuse as needed. If discharged tomorrow we can coordinate a follow-up lab on or Tuesday of this week, before the long weekend. He was advised to monitor closely for fevers. He is waiting to hear for his Medicaid status. Final bone marrow biopsy results are still pending.
[2018-06-12] MEDS: Dexamethasone Inj 20 MG, Granisetron Inj 1 MG in Sodium Chlor 0.9% Inj 50 ML IV.SIG SCH ×2 (14:47)
[2018-06-12] MEDS ORDERED: CYTARABINE IV.SIG ONE (15:52)
[2018-06-12] MEDS: CYTARABINE IV.SIG SCH (15:52)
[2018-06-12] MEDS: SODIUM CHLOR 0.9% IV.SIG SCH (15:52)
[2018-06-12] MEDS ORDERED: SODIUM CHLOR 0.9% IV.SIG ONE (15:52)
[2018-06-13] MEDS ORDERED: SODIUM CHLOR 0.9% IV.SIG ONE (03:39)
[2018-06-13] MEDS: SODIUM CHLOR 0.9% IV.SIG SCH (03:39)
[2018-06-13] MEDS: CYTARABINE IV.SIG SCH (03:39)
[2018-06-13] MEDS ORDERED: CYTARABINE IV.SIG ONE (03:39)
[2018-06-13 07:47] LABS: Eos % (Auto) 0.1 % (0.0-4.0); Hematocrit 26.6 % (39.0-51.0); Lymph # (Auto) 0.1 th/mm3 (1.0-4.8); Lymph % (Auto) 2.6 % (9.0-44.0); Mean Corpuscular Hemoglobin 30.2 pg (27.0-34.0); Mean Corpuscular Volume 88.9 fL (80.0-100.0); Mean Platelet Volume 8.2 fL (7.0-11.0); Mono % (Auto) 0.2 % (0.0-8.0); Neut # (Auto) 4.7 th/mm3 (1.8-7.7); Neut % (Auto) 97.1 % (16.0-70.0); Platelet Count 213 th/mm3 (150-450); Red Blood Count 2.99 mil/mm3 (4.50-5.90); Red Cell Distribution Width 17.8 % (11.6-17.2); White Blood Count 4.8 th/mm3 (4.0-11.0)
[2018-06-13 08:20] LABS: Alanine Aminotransferase 257 U/L (12-78); Albumin 3.2 g/dL (3.4-5.0); Alkaline Phosphatase 66 U/L (45-117); Anion Gap 6 meq/L (5-15); Aspartate Aminotransferase 111 U/L (15-37); Blood Urea Nitrogen 8 mg/dL (7-18); Calcium 8.4 mg/dL (8.5-10.1); Carbon Dioxide 31.7 meq/L (21.0-32.0); Chloride 102 meq/L (98-107); Glomerular Filtration Rate Greater Than 89 mL/min (>89); Glucose,Random 103 mg/dL (74-106); Potassium 4.2 meq/L (3.5-5.1); Sodium 140 meq/L (136-145); Total Protein 6.6 g/dL (6.4-8.2)
[2018-06-13] MEDS: Enoxaparin Inj 40 MG/0.4 ML Syringe SQ SCH (08:49)
[2018-06-13] MEDS: Dexamethasone 0.1% Opth Drops 5 ML Bottle EACH EYE SCH ×2 (08:49→13:43)
--- NOTE | 2018-06-13 10:38 | P.DS ---
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 He is status post induction chemotherapy. He has been admitted for reinduction/consolidation chemotherapy. Patient received high- dose KALA-C. He tolerated chemotherapy well. He will be discharged today and we will monitor his labs in outpatient clinic closely, 3 times weekly. 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 He is status post induction chemotherapy. He has been admitted for reinduction/consolidation chemotherapy. Patient received high- dose KALA-C. He tolerated chemotherapy well. He will be discharged today and we will monitor his labs in outpatient clinic closely, 3 times weekly. - Time Spent with Patient Total time spent providing and/or coordinating discharge services: Greater than 30 minutes - Quality: VTE Deep Vein Thrombosis/Pulmonary Embolism Present on Admission: No Exam Vital signs: Vital Signs 06/12/18 10:42 06/12/18 13:06 06/12/18 16:04 Temperature 98.1 F 98.1 F Pulse Rate 90 77 Respiratory Rate 20 20 18 Blood Pressure 144/94 H 115/62 Pulse Oximetry 100 98 06/12/18 20:00 06/12/18 21:52 06/12/18 21:55 Temperature 98.3 F Pulse Rate 85 Respiratory Rate 19 18 18 Blood Pressure 139/82 Pulse Oximetry 98 06/13/18 00:30 06/13/18 01:07 06/13/18 03:52 Temperature 97.5 F L 97.8 F Pulse Rate 82 91 H Respiratory Rate 18 18 18 Blood Pressure 129/71 132/74 Pulse Oximetry 96 99 06/13/18 08:00 Temperature 98.2 F Pulse Rate 70 Respiratory Rate 16 Blood Pressure 144/74 H Pulse Oximetry 97 Intake & Output 06/12/18 06/13/18 06/13/18 18:59 06:59 18:59 Intake Total 1700 / 1700 1285 / 1285 315.4 / 315.4 Output Total 1400 / 1400 1650 / 1650 Balance 300 / 300 -365 / -365 315.4 / 315.4 Weight 104.2 kg Intake: IV 100 / 100 325 / 325 315.4 / 315.4 Kala-C Inj 6.54 GM In NS Inj 250 325 / 325 315.4 / 315.4 ML @ 105.133 mls/hr IV.SIG Q12H [facility] Rx#:[id number] Decadron Inj 20 MG Kytril Inj 1 100 / 100 MG In NS Inj 50 ML @ 330 mls/ hr IV.SIG Q24H [facility] Rx#:[id number] Oral 1600 / 1600 960 / 960 Output: Urine 1400 / 1400 1650 / 1650 Other: Date of Last Bowel Movement 06/11/18 06/11/18 # Bowel Movements 1 Narrative: GENERAL: Young male patient, lying in bed, in no acute distress. SKIN: Warm and dry. HEAD: Normocephalic. EYES: No scleral icterus. No injection or drainage. MOUTH: [place] moist mucous membranes. No sores or ulcerations noted. NECK: Supple, trachea midline. CARDIOVASCULAR: + S1/S2 without murmurs. RESPIRATORY: Posterior breath sounds clear, equal. No accessory muscle use. GASTROINTESTINAL: Abdomen soft, non-tender, nondistended. EXTREMITIES: No cyanosis, or edema. MUSCULOSKELETAL: Adequate muscle tone. NEUROLOGICAL: No obvious focal deficit. Awake, alert, and oriented x3. PSYCHIATRIC: Appropriate mood and affect; insight and judgment normal. Results Procedures completed during hospitalization: No procedures this hospitalization. Labs on day of discharge: Labs from last 24 hours 06/13/18 06/13/18 07:05 07:05 WBC 4.8 RBC 2.99 L Hgb 9.0 L Hct 26.6 L MCV 88.9 MCH 30.2 MCHC 34.0 RDW 17.8 H Plt Count 213 MPV 8.2 Neut % (Auto) 97.1 H Lymph % (Auto) 2.6 L Barnes % (Auto) 0.2 Eos % (Auto) 0.1 Baso % (Auto) 0.0 Neut # (Auto) 4.7 Lymph # (Auto) 0.1 L Barnes # (Auto) 0.0 Eos # (Auto) 0.0 Baso # (Auto) 0.0 WBC Differential . Differential Comment Auto diff final Sodium 140 Potassium 4.2 Chloride 102 Carbon Dioxide 31.7 Anion Gap 6 BUN 8 Creatinine 0.60 Estimated GFR Greater than 89 Random Glucose 103 Calcium 8.4 L Total Bilirubin 0.6 AST 111 H ALT 257 H Alkaline Phosphatase 66 Total Protein 6.6 Albumin 3.2 L <Louann Kerr - Last Filed: 06/13/18 17:46> Date of admission: 06/08/18 11:18 Primary care physician: No Primary Care Physician DS: Summary - Time Spent with Patient Total time spent providing and/or coordinating discharge services: Exam Vital signs: Vital Signs 06/12/18 20:00 06/12/18 21:52 06/12/18 21:55 Temperature 98.3 F Pulse Rate 85 Respiratory Rate 19 18 18 Blood Pressure 139/82 Pulse Oximetry 98 06/13/18 00:30 06/13/18 01:07 06/13/18 03:52 Temperature 97.5 F L 97.8 F Pulse Rate 82 91 H Respiratory Rate 18 18 18 Blood Pressure 129/71 132/74 Pulse Oximetry 96 99 06/13/18 08:00 06/13/18 11:45 Temperature 98.2 F 98.3 F Pulse Rate 70 72 Respiratory Rate 16 20 Blood Pressure 144/74 H 133/58 L Pulse Oximetry 97 100 Intake & Output 06/12/18 06/13/18 06/13/18 18:59 06:59 18:59 Intake Total 1700 / 1700 1285 / 1285 1715.4 / 1715.4 Output Total 1400 / 1400 1650 / 1650 1700 / 1700 Balance 300 / 300 -365 / -365 15.4 / 15.4 Weight 104.2 kg Intake: IV 100 / 100 325 / 325 315.4 / 315.4 Kala-C Inj 6.54 GM In NS Inj 250 325 / 325 315.4 / 315.4 ML @ 105.133 mls/hr IV.SIG Q12H [facility] Rx#:[id number] Decadron Inj 20 MG Kytril Inj 1 100 / 100 MG In NS Inj 50 ML @ 330 mls/ hr IV.SIG Q24H [facility] Rx#:[id number] Oral 1600 / 1600 960 / 960 1400 / 1400 Output: Urine 1400 / 1400 1650 / 1650 1700 / 1700 Other: # Voids 2 Date of Last Bowel Movement 06/11/18 06/11/18 06/12/18 # Bowel Movements 1 Results Labs on day of discharge: Labs from last 24 hours 06/13/18 06/13/18 07:05 07:05 WBC 4.8 RBC 2.99 L Hgb 9.0 L Hct 26.6 L MCV 88.9 MCH 30.2 MCHC 34.0 RDW 17.8 H Plt Count 213 MPV 8.2 Neut % (Auto) 97.1 H Lymph % (Auto) 2.6 L Barnes % (Auto) 0.2 Eos % (Auto) 0.1 Baso % (Auto) 0.0 Neut # (Auto) 4.7 Lymph # (Auto) 0.1 L Barnes # (Auto) 0.0 Eos # (Auto) 0.0 Baso # (Auto) 0.0 WBC Differential . Differential Comment Auto diff final Sodium 140 Potassium 4.2 Chloride 102 Carbon Dioxide 31.7 Anion Gap 6 BUN 8 Creatinine 0.60 Estimated GFR Greater than 89 Random Glucose 103 Calcium 8.4 L Total Bilirubin 0.6 AST 111 H ALT 257 H Alkaline Phosphatase 66 Total Protein 6.6 Albumin 3.2 L - Impressions 27 y/o man with biphenotypic AML, admit for reinduction post initial induction with minimal residual disease. Admitted for High dose KALA-C. Bone marrow biopsy repeated. Tolerated chemotherapy well. Plan to follow up as outpatient. Pt will need follow up with bone marrow transplant center. High risk disease. He will need allogeneic bone marrow transplant. - Additional Comments Pt DC home before could be seen. Agree with above. Follow up as out patient. Discharge Plan - Discharge Order Discharge Orders: Discharge Order (Routine); Ordered 06/13/18 Ordered By: Carlyn Li - Discharge Details Anticipated Discharge Date: 06/13/18 - Physicians Team Primary Care Provider: Primary Care Sweetie Gaston Attending Provider: Louann Kerr - Rxs /Orders / Referrals /Forms Prescriptions: New multivitamin with folic acid [Thera] 400 mcg Tablet 1 tab PO DAILY 30 Days Qty: 30 RF: 3 oxycodone 5 mg Tablet 5 mg PO Q6HR PRN (Reason: Pain Scale 4 to 7) 2 Days Qty: 8 RF: 0 Continue acyclovir 200 mg Capsule 400 mg PO Q8HR Qty: 180 RF: 0 Referrals: Primary Care Sweetie Gaston [Primary Care Provider] - See Instructions - Discharge Instructions Patient Printed Instructions: Neutropenia (ED) Additional Instructions: Patient to follow-up in outpatient clinic on Tuesday for lab draw. Anticipate blood work 3 times per week. Patient to follow-up with Dr. Kerr next week. Notify Dr. Owen immediately for any temperature greater than 100.4F. - Post Discharge Care Plan Care Plan Goals: Scheduled labs, transfusion support, monitor for fevers.
[2018-06-13] MEDS ORDERED: Heparin Central Flush 100 UNIT/ML 5 ML Vial IV.FLUSH PRN (13:57)
[2018-06-14] MEDS ORDERED: Heparin Central Flush 100 UNIT/ML 5 ML Vial IV.FLUSH SCH (09:00)
== END 2018-06-13 17:00 | disposition home or self-care (01) ==
LOC: HCIN 11:18
PROVIDERS: ADMIT Internal Medicine Hematology & Oncology; ATTEND Internal Medicine Hematology & Oncology